=== PATIENT | male | born 1965 | race Caucasian/White ===

== ENCOUNTER 2023-06-23 06:59 | Outpatient (OUT) | payer OTHER, SELFPAY ==
--- NOTE | 2023-06-23 | CT_ITS ---
The [address] [address] Patient Name: SHAKILA LOPEZ MRN: [id number] date: 1965 Sex: M Assigned Patient Location: CT Current Patient Location: CT Accession/Order Number: [id number] Exam Date: 06/23/2023 07:45 Report Date: 06/23/2023 08:15 At the request of: MARY CORONADO Procedure: CT abdomen w con CT abdomen w con, 06/23/2023 7:45 AM EST INDICATION: Ventral hernia without obstruction or gangrene, K43.9 COMPARISON: There is no appropriate prior study for comparison. TECHNIQUE: Axial images of the abdomen were obtained after the administration of IV and oral contrasts. Multiplanar reformatted images were generated and reviewed as needed. Dose reduction techniques were achieved by using automated exposure control and/or adjustment of mA and/or kV according to patient size and/or use of iterative reconstruction technique. FINDINGS: Lungs: There is bilateral dependent atelectasis in the lung bases. No pleural effusion is noted. Abdominal wall: There is a defect within the anterior abdominal wall measuring approximately 1.4 cm in transverse diameter containing fat (under the BB). Liver and gallbladder: The liver and gallbladder are unremarkable. No enlargement of intra or extrahepatic biliary ducts. Genitourinary system: No hydronephrosis. No nephrolithiasis. Other solid abdominal organs: adrenal glands, pancreas, and spleen are unremarkable. Aorta: The infrarenal abdominal aorta is nonaneurysmal. Free fluid: There is no free fluid in the abdomen. Lymph node: No lymph node enlargement by size criteria is noted. Stomach and Bowel: No abnormality of the stomach is noted. No abnormality of visualized small or large bowel is noted. Bone: There is no suspicious osteolytic or osteoblastic lesion. Lower lumbar spine posterior fusion are partially visualized. CT/CT abdomen w con IMPRESSION: Small ventral hernia containing fat. Electronically authenticated by: JESÚS MORGAN Date: 06/23/2023 08:15
== END 2023-06-23 07:00 | disposition home or self-care (01) ==
LOC: CT 06:59
PROVIDERS: PCP Family Medicine; Visit Provider Family Medicine
DX: K43.9 Ventral hernia without obstruction or gangrene (principal)
CPT/HCPCS: 74160; Q9967

== ENCOUNTER 2023-07-06 10:57 | Outpatient (OUT) | payer OTHER, SELFPAY ==
--- OUTSIDE RECORDS SUMMARY | 2023-07-06 11:00 | XMS_ITS | CCD ---
Author Name Unknown Address [address] [place] [address] Organization [facility] Care Team Providers Care [employer] Athlete Name Role Phone OLIVIA ZAMAN Unavailable Unavailable MARY KLINE M Unavailable Unavailable OLIVIA ZAMAN Unavailable Unavailable BILL KLINELAS M Unavailable Unavailable HEMPHILL, HAMZAH P Unavailable Unavailable HEMPHILL, HAMZAH P Unavailable Unavailable HOY MARY M Unavailable Unavailable HEMPHILL, HAMZAH P Unavailable Unavailable Mary Kline MD Primary Care Provider [phone] MARY KLINE Primary Care Unavailable MARY KLINE Primary Care Unavailable MARY KLINE Referring Unavailable ELGAFY, CHEIKH K Admitting Unavailable ELGAFY, CHEIKH K Attending Unavailable ELGAFY, CHEIKH Attending Unavailable AMBROSIO LIANG Referring Unavailable ELGAFY, CHEIKH Referring Unavailable ELGAFY, CHEIKH Admitting Unavailable ELGAFY, CHEIKH Attending Unavailable IVONNE ., DR HERNANDEZ Admitting Unavailable IVONNE ., DR HERNANDEZ Attending Unavailable IVONNE .DR HERNANDEZ Primary Care Unavailable IVONNE .DR HERNANDEZ Consulting Unavailable LEYDIY .DR HERNANDEZ Admitting Unavailable LEYDIY .DR HERNANDEZ Attending Unavailable IVONNE .DR HERNANDEZ Primary Care Unavailable IVONNE .DR HERNANDEZ Consulting Unavailable OLIVIA BECKER Consulting Unavailable IVONNE .DR HERNANDEZ Admitting Unavailable LEYDIY .DR HERNANDEZ Attending Unavailable LEYDIY ., DR HERNANDEZ Primary Care Unavailable LEYDIY .DR HERNANDEZ Consulting Unavailable LEYDIY ., DR HERNANDEZ Admitting Unavailable IVONNE ., DR HERNANDEZ Attending Unavailable IVONNE ., DR HERNANDEZ Primary Care Unavailable IVONNE Almanzar, DR HERNANDEZ Consulting Unavailable Mary Kline Primary Care Physician [phone] Edna GOODWIN Attending Unavailable Edna GOODWIN Attending Unavailable Allergies Allergy Classification Reported Allergen(s) Allergy Type Date of Onset Reaction(s) Facility Opioid Agonists (1 source) Morphine Drug Allergy 02-23-2018 [facility] (6 sources) morphine; Translations: [MORPHINE] Drug Allergy 01-28-2018 [facility], Itching [facility] Repository Medications Current Medications Medication Drug Class(es) Dates Sig (Normalized) Sig (Original) 0.25 MG, 0.5 MG Dose 3 ML semaglutide 0.68 MG/ML Pen Injector [Ozempic] (1 source) Start: 12-16-2022 inject 0.5 mg by subcutaneous injection every week Ozempic 2 mg/3 mL (0.25 mg or 0.5 mg dose) subcutaneous solution 0.5 mg, SubCutaneous, qWeek, Refills(s) 0 Start Date: 12/16/22 Status: Ordered acetaminophen 325 mg / HYDROcodone bitartrate 5 mg oral tablet (1 source) Opioid Agonist Start: 02-08-2021 End: 02-11-2021 HYDROcodone-acetami nophen (NORCO) 5-325 MG per tablet Indications: Acute exacerbation of chronic low back pain Take 1 tablet by mouth every 6 hours as needed for Pain for up to 3 days. Intended supply: 3 days. Take lowest dose possible to manage pain 12 tablet 0 02/08/2021 02/11/2021 Active baclofen 10 mg oral tablet (1 source) gamma-Aminobutyric Acid-ergic Agonist Start: 02-08-2021 End: 02-12-2021 take 1 tablet by mouth three times daily as needed for muscle spasms baclofen (LIORESAL) 10 MG tablet Take 1 tablet by mouth 3 times daily as needed (muscle spasm) 12 tablet 0 02/08/2021 02/12/2021 Active diclofenac sodium 50 mg delayed release oral tablet (1 source) Nonsteroidal Anti-inflammatory Drug Start: 02-23-2018 End: 02-08-2021 take 1 tablet by mouth three times daily at mealtime diclofenac (VOLTAREN) 50 MG EC tablet Indications: Lumbar radiculopathy , Lumbar spondylosis , Left knee pain, unspecified chronicity , Lumbar disc herniation , Lumbar degenerative disc disease Take 1 tablet by mouth 3 times daily (with meals) 90 tablet 3 02/23/2018 02/08/2021 Discontinued (LIST CLEANUP) Ozempic 2 mg/3 mL (0.25 mg or 0.5 mg dose) subcutaneous solution (1 source) Start: 12-16-2022 inject 0.5 mg by subcutaneous injection every week Ozempic 2 mg/3 mL (0.25 mg or 0.5 mg dose) subcutaneous solution 0.5 mg, SubCutaneous, qWeek, Refills(s) 0 Start Date: 12/16/22 Status: Ordered Completed/Discontinued Medications Medication Drug Class(es) Dates Sig (Normalized) Sig (Original) methylPREDNISolone 125 mg injection (1 source) Corticosteroid Start: 1 End: 1 methylPREDNISolone sodium (SOLU-MEDROL) injection 60 mg Problems Active Problems Problem Classification Problem Date Documented Date Episodic/Chronic Anxiety disorders (4 sources) Anxiety; Translations: [Claustrophobia] 08-08-2021 Chronic Calculus of urinary tract (2 sources) History of calculus of kidney 08-08-2021 Episodic Diabetes mellitus without complication (1 source) Other abnormal glucose; Translations: [OTHER ABNORMAL GLUCOSE] Onset: 11-07-2022 Episodic Disorders of lipid metabolism (1 source) Hyperlipidemia, unspecified; Translations: [HYPERLIPIDEMIA UNSPECIFIED] Onset: 11-07-2022 Chronic Gout and other crystal arthropathies (2 sources) Gout 08-08-2021 Chronic Mood disorders (4 sources) Depressive disorder; Translations: [Severe major depression] 09-18-2016 Chronic Nutritional deficiencies (1 source) Vitamin D deficiency, unspecified; Translations: [VITAMIN D DEFICIENCY UNSPECIFIED] Onset: 11-07-2022 Chronic Osteoarthritis (4 sources) Unilateral primary osteoarthritis, left knee; Translations: [UNI PRIM OSTEOARTHRITIS LT KNEE] Onset: 07-30-2022 Chronic Other and unspecified benign neoplasm (2 sources) Lipoma of back 08-08-2021 Episodic Other circulatory disease (4 sources) Elevated blood-pressure reading, without diagnosis of hypertension; Translations: [ELEVATED BP READING W/O DX HTN] Onset: 11-04-2022 Episodic Other circulatory disease (2 sources) Elevated blood-pressure reading without diagnosis of hypertension 08-08-2021 Episodic Other connective tissue disease (2 sources) Presence of left artificial knee joint; Translations: [Presence of left artificial knee joint] Onset: 02-11-2017 Chronic Other connective tissue disease (2 sources) Foot pain 09-18-2016 Episodic Other lower respiratory disease (1 source) Snoring; Translations: [SNORING] Onset: 08-14-2022 Episodic Other lower respiratory disease (5 sources) Dyspnea, unspecified; Translations: [DYSPNEA UNSPECIFIED] Onset: 08-05-2022 Episodic Other male genital disorders (1 source) Disorder of prostate, unspecified; Translations: [DISORDER OF PROSTATE UNSPECIFIED] Onset: 11-07-2022 Episodic Other nervous system disorders (2 sources) Neuropathy 08-08-2021 Chronic Other non-traumatic joint disorders (2 sources) Pain in left knee; Translations: [Pain in left knee] Onset: 02-11-2017 Episodic Other non-traumatic joint disorders (2 sources) Knee pain 09-18-2016 Episodic Comment on above: s/p left total knee arthroplast Other nutritional; endocrine; and metabolic disorders (2 sources) Body mass index 40+ - severely obese 08-13-2021 Chronic Other nutritional; endocrine; and metabolic disorders (2 sources) Morbid obesity 12-16-2022 Chronic Other nutritional; endocrine; and metabolic disorders (5 sources) Overweight; Translations: [OVERWEIGHT] Onset: 08-03-2022 Episodic Other skin disorders (2 sources) Hypertrophic condition of skin; Translations: [Other hypertrophic disorders of the skin] Onset: 12-16-2022 Episodic Other skin disorders (2 sources) Multiple skin tags 12-16-2022 Episodic Other upper respiratory disease (2 sources) Deviated nasal septum 08-08-2021 Episodic Other upper respiratory disease (2 sources) Hypertrophy of nasal turbinates 08-08-2021 Episodic Residual codes; unclassified (1 source) Obstructive sleep apnea (adult) (pediatric); Translations: [OBSTRUCTIVE SLEEP APNEA] Onset: 08-14-2022 Chronic Residual codes; unclassified (2 sources) Obstructive sleep apnea syndrome 08-08-2021 Chronic Residual codes; unclassified (2 sources) Pain; Translations: [Pain] Onset: 03-27-2022 Episodic Spondylosis; intervertebral disc disorders; other back problems (4 sources) Cervical spondylosis; Translations: [Prolapsed lumbar intervertebral disc] 08-08-2021 Chronic Spondylosis; intervertebral disc disorders; other back problems (5 sources) Chronic low back pain; Translations: [Low back pain] Onset: 03-13-2022 Episodic Past or Other Problems Problem Classification Problem Date Documented Da te Episodic/Chronic Other lower respiratory disease (1 source) Chronic cough; Translations: [CHRONIC COUGH] Onset: 08-02-2022 Episodic Results Test Name Value Interpretation Reference Range Facility Physician Referralon 023 Physician Referral [id number] Normal [facility] RAD - CT Reporton 06-25-2023 RAD - CT Report [id number] Normal [facility] Ambulatory Visit Summaryon 0 12-30-2022 Ambulatory Visit Summary RIOS BARTLETT :1965 Visit Date:12/30/2022 Ambulatory Visit Instructions Your Diagnosis Skin tags, multiple acquired Your Care Team Attending Physician - BUDDY TRAN, Edna Maher Primary Care Physician - Ivonne TRAN, Mary This Is Your Medications List Contact prescribing physician if questions or concerns semaglutide (Ozempic 2 mg/3 mL (0.25 mg or 0.5 mg dose) subcutaneous solution) Procedures Performed Exploration (08/27/2021), Uvulopalatopharyngoplasty (2019), L knee synovectomy, poly exchange, quad plasty complicated by obesity (10/06/2016), ACDF 5-7, Gastric sleeve, History of revision of left total knee arthroplasty, LA - Local anesthetic nerve block in lower limb, left knee arthroscopy, left total knee arthroplasty, Lumbar spinal fusion, Nasal septoplasty, Testicular torsion, Tonsillectomy and adenoidectomy. Medications What How Much When Instructions Unchanged semaglutide (Ozempic 2 mg/ 3 mL (0.25 mg or 0.5 mg dose) subcutaneous solution) 0.5 Milligram Subcutaneous Every week Contact prescribing physician if questions or concerns Allergies morphine (Itching) Problems Ongoing - Any problem that you are currently receiving treatment for. Anxiety BMI 40.0-44.9, adult Brachial neuritis Cervical spondylosis Claustrophobia Deviated nasal septum Elevated blood pressure reading without diagnosis of hypertension Gout History of nephrolithiasis Hypertrophy of nasal turbinates Lipoma of back Lumbar herniated disc Morbid obesity Neuropathy PATTI (obstructive sleep apnea) Severe major depressive disorder Skin tags, multiple acquired [facility] General Surgery Office/Clini c Noteon 12-30-2022 General Surgery Office/Clinic Note Chief Complaint removal of skin tags HPI Staff Presents for removal of multiple skin tags. History of Present Illness patient here for excision of multiple irritated skin tags bilateral axillae, neck and near right eye; no change since recent evaluation. Review of Systems ROS - Provider Constitutional: no fever, no sweats, no weight loss. Eyes: no glasses, no blurred vision, no visual loss. ENMT: no dentures, no hoarseness, no swallowing difficulties, no hearing loss, no ear infection(s), no nose bleeds. Cardiovascular: normal blood pressure, no chest pain, regular heartbeat, no heart murmur. Respiratory: no shortness of breath, no cough, no asthma, no wheezing. Gastrointestinal: no nausea, no vomiting, no diarrhea, no constipation, no blood in stool, no change in bowel habits, no abdominal pain, no hepatitis. Genitourinary: no kidney stones, no urine infection, no dysuria. Musculoskeletal: no pain, no weakness. Skin: no changing moles, no rash, no skin lumps. Neurologic: no seizures, no epilepsy, no headache. Psychiatric: no emotional or psychiatric problem. Heme/Lymph: no bleeding problems, no anemia, no blood clots, no transfusions. Allergy/Immunologic: no swollen lymph nodes/glands, no IV drug abuse. Other: Additional ROS info: Except as noted in the above Review of Systems and in the History of Present Illness, all other systems have been reviewed and are negative or noncontributory. Physical Exam skin: multiple skin tags, bilateral axillae, neck, near right eye. Procedure patient brought to the procedure room, placed in supine position, area prepped and draped in sterile fashion; anesthetized with 1 % lidocaine; lesions excised with cautery, approximately 25; tolerated well; ebl < 1 ml. Assessment/Plan 1. Skin tags, multiple acquired (L91.8: Other hypertrophic disorders of the skin) excised under local anesthesia with cautery, tolerated well, ebl < 1 ml; keep areas clean and dry, call with problems/questions; ibuprofen as needed for pain. Follow-up No qualifying data available Problem List/Past Medical History Ongoing Anxiety BMI 40.0-44.9, adult Brachial neuritis Cervical spondylosis Claustrophobia Deviated nasal septum Elevated blood pressure reading without diagnosis of hypertension Gout History of nephrolithiasis Hypertrophy of nasal turbinates Lipoma of back Lumbar herniated disc Morbid obesity Neuropathy PATTI (obstructive sleep apnea) Severe major depressive disorder Skin tags, multiple acquired Historical No qualifying data Procedure/Surgical History Exploration (08/27/2021), Uvulopalatopharyngoplasty (2019), L knee synovectomy, poly exchange, quad plasty complicated by obesity (10/06/2016), ACDF 5-7, Gastric sleeve, History of revision of left total knee arthroplasty, LA - Local anesthetic nerve block in lower limb, left knee arthroscopy, left total knee arthroplasty, Lumbar spinal fusion, Nasal septoplasty, Testicular torsion, Tonsillectomy and adenoidectomy. Medications Ozempic 2 mg/3 mL (0.25 mg or 0.5 mg dose) subcutaneous solution, 0.5 mg, SubCutaneous, qWeek Allergies morphine (Itching) Social History Alcohol - Denies Alcohol Use, 09/18/2016 Substance Abuse - Denies Substance Abuse, 09/18/2016 Tobacco - Denies Tobacco Use, 09/18/2016 Never (less than 100 in lifetime) Tobacco Use:. Never Smokeless Tobacco Use:., 12/16/2022 Family History Cardiac arrest: Father. Hypertension: Brother. Primary malignant neoplasm of lung: Mother. Stroke: Mother. Immunizations Vaccine Date Status Comments influenza virus vaccine, inactivated - Not Given Patient Refuses Normal [facility] Comment on above: Result Comment: Elec tronically Signed By: BUDDY TRAN, Edna Maher\.br\Date and Time Signed: 12/30/22 15:11 EDT Pre-Certification Formon Pre-Certification Form [id number]:127 Normal [facility] Ambulatory Visit Summaryon 0 12-16-2022 Ambulatory Visit Summary RIOS BARTLETT :1965 Visit Date:12/16/2022 Ambulatory Visit Instructions Your Care Team Attending Physician - BUDDY TRAN, Edna Maher Primary Care Physician - Mary Kline MD This Is Your Medications List semaglutide (Ozempic 2 mg/3 mL (0.25 mg or 0.5 mg dose) subcutaneous solution) Procedures Performed Exploration (08/27/2021), Uvulopalatopharyngoplasty (2019), L knee synovectomy, poly exchange, quad plasty complicated by obesity (10/06/2016), ACDF 5-7, Gastric sleeve, History of revision of left total knee arthroplasty, LA - Local anesthetic nerve block in lower limb, left knee arthroscopy, left total knee arthroplasty, Lumbar spinal fusion, Nasal septoplasty, Testicular torsion, Tonsillectomy and adenoidectomy. Discharge Vitals Heart Rate (Peripheral) 70 Respiratory Rate 18 Blood Pressure 118/66 Height 175.3 cm Height 69 in Weight 136.6 kg Weight 300.52 lb BMI 44.45 What to do next Scheduled Follow-Up Appointments Wednesday 2:40 PM EDT With: BUDDY TRAN, Edna Maher Where: General Surgery Nill/Said [employer] Normal [facility] CBC AUTO DIFFon 11-04-2022 BASO # 0.0 103/ul Normal 0.0-0.1 [facility] Comment on above: Performed By: #### T SH, T4, FT3, CMP, LIPID #### [facility] [address] [place] [address] Dr. Ayush Rice Basophils/100 WBC (Bld) 0.3 % Normal 0.2-2.0 [facility] Comment on above: Performed By: #### T SH, T4, FT3, CMP, LIPID #### [facility] [address] [address] [address] Ayush Rice EO # 0.2 103/ul Normal 0.0-0.7 [facility] Comment on above: Performed By: #### T SH, T4, FT3, CMP, LIPID #### [facility] [address] [address] [address] Ayush Rice Eosinophils/100 WBC (Bld) 1.5 % Normal 0.9-7.0 [facility] Comment on above: Performed By: #### T SH, T4, FT3, CMP, LIPID #### [facility] [address] [place] [address] Dr. Ayush Rice Erythrocyte distribution width (RBC) [Ratio] 14.2 % Normal 11.0-15.0 [facility] Comment on above: Performed By: #### T SH, T4, FT3, CMP, LIPID #### [facility] [address] [place] [address] Dr. Ayush Rice Hematocrit (Bld) [Volume fraction] 49.3 % Normal 42.0-54.0 [facility] Comment on above: Performed By: #### T SH, T4, FT3, CMP, LIPID #### [facility] [address] [place] [address] Dr. Ayush Rice Hemoglobin (Bld) [Mass/Vol] 16.2 g/dL Normal 14.0-18.0 [facility] Comment on above: Performed By: #### T SH, T4, FT3, CMP, LIPID #### [facility] [address] [place] [address] Dr. Ayush Rice IG # 0.03 10e3/ul Normal 0.00-0.03 [facility] Comment on above: Performed By: #### T SH, T4, FT3, CMP, LIPID #### [facility] [address] [place] [address] Dr. Ayush Rice IG % 0.3 % Normal 0.0-0.5 [facility] Comment on above: Performed By: #### T SH, T4, FT3, CMP, LIPID #### [facility] [address] [place] [address] Dr. Ayush Rice LYMPH # 2.6 103/ul Normal 1.2-3.8 [facility] Comment on above: Performed By: #### T SH, T4, FT3, CMP, LIPID #### [facility] [address] [place] [address] Dr. Ayush Rice Lymphocytes/100 WBC (Bld) 24.9 % Normal 20.5-60.0 [facility] Comment on above: Performed By: #### T SH, T4, FT3, CMP, LIPID #### [facility] [address] [place] [address] Dr. Ayush Rice MANUAL DIFF REQ NO Normal [facility] Comment on above: Performed By: #### T SH, T4, FT3, CMP, LIPID #### [facility] [address] [place] [address] Dr. Ayush Rice MCH (RBC) [Entitic mass] 30.1 pg Normal 25.9-34.0 [facility] Comment on above: Performed By: #### T SH, T4, FT3, CMP, LIPID #### [facility] [address] [place] [address] Dr. Ayush Rice MCHC (RBC) [Mass/Vol] 32.9 g/dL Normal 29.9-35.2 [facility] Comment on above: Performed By: #### T SH, T4, FT3, CMP, LIPID #### [facility] [address] [place] [address] Dr. Ayush Rice MCV (RBC) [Entitic vol] 91.5 fL Normal 80.0-94.0 [facility] Comment on above: Performed By: #### T SH, T4, FT3, CMP, LIPID #### [facility] [address] [place] [address] Dr. Ayush Rice MONO # 0.8 103/ul Normal 0.3-0.8 [facility] Comment on above: Performed By: #### T SH, T4, FT3, CMP, LIPID #### [facility] [address] [place] [address] Dr. Ayush Rice Monocytes/100 WBC (Bld) 7.4 % Normal 1.7-12.0 [facility] Comment on above: Performed By: #### T SH, T4, FT3, CMP, LIPID #### [facility] [address] [place] [address] Dr. Ayush Rice NEUT # 7.0 103/ul Critically high 1.4-6.5 [facility] Comment on above: Performed By: #### T SH, T4, FT3, CMP, LIPID #### [facility] [address] [place] [address] Dr. Ayush Rice Neutrophils/100 WBC (Bld) 65.6 % Normal 43.0-75.0 [facility] Comment on above: Performed By: #### T SH, T4, FT3, CMP, LIPID #### [facility] [address] [place] [address] Dr. Ayush Rice Platelet mean volume (Bld) [Entitic vol] 8.5 fL Critically low 9.5-13.5 [facility] Comment on above: Performed By: #### T SH, T4, FT3, CMP, LIPID #### [facility] [address] [place] [address] Dr. Ayush Rice PLT 232 103/ul Normal 150-450 [facility] Comment on above: Performed By: #### T SH, T4, FT3, CMP, LIPID #### [facility] [address] [place] [address] Dr. Ayush Rice RBC 5.39 106/ul Normal 4.70-6.10 [facility] Comment on above: Performed By: #### T SH, T4, FT3, CMP, LIPID #### [facility] [address] [place] [address] Dr. Ayush Rice WBC 10.6 103/ul Normal 4.0-11.0 [facility] Comment on above: Performed By: #### T SH, T4, FT3, CMP, LIPID #### [facility] [address] [place] [address] Dr. Ayush Rice FREE T3on 11-04-2022 FREE T3 2.93 pg/mlL Normal 2.18-3.98 [facility] Comment on above: Performed By: #### T SH, T4, FT3, CMP, LIPID #### [facility] [address] [place] [address] Dr. Auysh Rice GLYCOHEMOGLOBIN A1Con 2022 ADA RECOMMENDATION SEE BELOW Normal [facility] Comment on above: Result Comment: ADA RECOMMENDED LIMIT 4.0 - 6.0 ADA THERAPEUTIC TARGET < 7.0 ACTION SUGGESTED > 7.0 Performed By: #### A 1C #### [facility] [address] [place] [address] Dr. Ayush Rice Glucose [Mass/Vol] 126 mg/dL Normal [facility] Comment on above: Performed By: #### A 1C #### [facility] [address] [address] [address] Ayush Rice HbA1c (Bld) [Mass fraction] 6.0 % Normal 4.5-6.2 [facility] Comment on above: Performed By: #### A 1C #### [facility] [address] [address] [address] Ayush Rice LIPID PROFILEon 11-04-2022 CHOL-HDL RATIO NORM SEE BELOW Normal [facility] Comment on above: Result Comment: 3.3 - 4.4 LOW RISK 4.4 - 7.1 AVERAGE RISK 7.1 - 11.0 MODERATE RISK >11.0 HIGH RISK Performed By: #### T SH, T4, FT3, CMP, LIPID #### [facility] [address] [place] [address] Dr. Ayush Rice Cholesterol [Mass/Vol] 190 mg/dL Normal <=200 [facility] Comment on above: Performed By: #### T SH, T4, FT3, CMP, LIPID #### [facility] [address] [address] [address] Ayush Rice Cholesterol in HDL [Mass/Vol] 39 mg/dL Critically low 40-60 [facility] Comment on above: Performed By: #### T SH, T4, FT3, CMP, LIPID #### [facility] [address] [address] [address] Ayush Rice Cholesterol in LDL [Mass/Vol] 122.0 mg/dL Normal [facility] Comment on above: Performed By: #### T SH, T4, FT3, CMP, LIPID #### [facility] [address] [address] [address] Ayush Rice Cholesterol.total/ Cholesterol in HDL [Mass ratio] 4.9 {ratio} Normal [facility] Comment on above: Performed By: #### T SH, T4, FT3, CMP, LIPID #### [facility] [address] [address] [address] Ayush Rice HDL NORMAL > or = 60 mg/dl - LO W CARDIOVASCULAR RISK <40 mg/dl - HIGH CARDIOVASCULAR RISK Normal [facility] Comment on above: Performed By: #### T SH, T4, FT3, CMP, LIPID #### [facility] [address] [address] [address] Ayush Rice LDL CALC NORMAL SEE BELOW Normal [facility] Comment on above: Result Comment: <100 mg/dl OPTIMAL 100 - 129 mg/dl NEAR OR ABOVE OPTIMAL 130 - 159 mg/dl BORDERLINE HIGH 160 - 189 mg/dl HIGH >190 mg/dl VERY HIGH Performed By: #### T SH, T4, FT3, CMP, LIPID #### [facility] [address] [address] [address] Ayush Rice Triglyceride [Mass/Vol] 145 mg/dL Normal <=150 [facility] Comment on above: Performed By: #### T SH, T4, FT3, CMP, LIPID #### [facility] [address] [address] [address] Ayush Rice VLDL CALC 29.0 mg/dL Normal [facility] Comment on above: Performed By: #### T SH, T4, FT3, CMP, LIPID #### [facility] [address] [address] [address] Ayush Rice PROF 14(COMP METB)on 023 Albumin [Mass/Vol] 3.8 g/dL Normal 3.4-5.0 [facility] Comment on above: Performed By: #### T SH, T4, FT3, CMP, LIPID #### [facility] [address] [address] [address] Ayush Rice Albumin/Globulin [Mass ratio] 1.1 {ratio} Normal [facility] Comment on above: Performed By: #### T SH, T4, FT3, CMP, LIPID #### [facility] [address] [address] [address] Ayush Rice ALP [Catalytic activity/Vol] 103 U/L Normal 46-116 [facility] Comment on above: Performed By: #### T SH, T4, FT3, CMP, LIPID #### [facility] [address] [place] [address] Dr. Ayush Rice ALT [Catalytic activity/Vol] 40 U/L Normal 16-63 [facility] Comment on above: Performed By: #### T SH, T4, FT3, CMP, LIPID #### [facility] [address] [place] [address] Dr. Ayush Rice Anion gap [Moles/Vol] 12.4 mmol/L Normal [facility] Comment on above: Performed By: #### T SH, T4, FT3, CMP, LIPID #### [facility] [address] [place] [address] Dr. Ayush Rice AST [Catalytic activity/Vol] 28 U/L Normal 15-37 [facility] Comment on above: Performed By: #### T SH, T4, FT3, CMP, LIPID #### [facility] [address] [place] [address] Dr. Ayush Rice Bilirubin [Mass/Vol] 0.9 mg/dL Normal 0.2-1.0 [facility] Comment on above: Performed By: #### T SH, T4, FT3, CMP, LIPID #### [facility] [address] [place] [address] Dr. Ayush Rice Calcium [Mass/Vol] 9.1 mg/dL Normal 8.5-10.1 [facility] Comment on above: Performed By: #### T SH, T4, FT3, CMP, LIPID #### [facility] [address] [place] [address] Dr. Ayush Rice Chloride [Moles/Vol] 107 mmol/L Normal 98-107 [facility] Comment on above: Performed By: #### T SH, T4, FT3, CMP, LIPID #### [facility] [address] [place] [address] Dr. Ayush Rice CO2 [Moles/Vol] 27.9 mmol/L Normal 21.0-32.0 [facility] Comment on above: Performed By: #### T SH, T4, FT3, CMP, LIPID #### [facility] [address] [place] [address] Dr. Ayush Rice Creatinine [Mass/Vol] 1.18 mg/dL Normal 0.70-1.30 [facility] Comment on above: Performed By: #### T SH, T4, FT3, CMP, LIPID #### [facility] [address] [address] [address] Ayush Rice EGFR-AF BARBADIAN >60 Normal >=60 [facility] Comment on above: Performed By: #### T SH, T4, FT3, CMP, LIPID #### [facility] [address] [address] [address] Ayush Rice EGFR-NON AF BARBADIAN >60 Normal >=60 [facility] Comment on above: Performed By: #### T SH, T4, FT3, CMP, LIPID #### [facility] [address] [place] [address] Dr. Ayush Rice Globulin (S) [Mass/Vol] 3.4 g/dL Normal [facility] Comment on above: Performed By: #### T SH, T4, FT3, CMP, LIPID #### [facility] [address] [place] [address] Dr. Ayush Rice Glucose [Mass/Vol] 106 mg/dL Normal 74-106 [facility] Comment on above: Performed By: #### T SH, T4, FT3, CMP, LIPID #### [facility] [address] [place] [address] Dr. Ayush Rice Potassium [Moles/Vol] 4.3 mmol/L Normal 3.5-5.1 [facility] Comment on above: Performed By: #### T SH, T4, FT3, CMP, LIPID #### [facility] [address] [place] [address] Dr. Ayush Rice Protein [Mass/Vol] 7.2 g/dL Normal 6.4-8.2 [facility] Comment on above: Performed By: #### T SH, T4, FT3, CMP, LIPID #### [facility] [address] [place] [address] Dr. Ayush Rice Sodium [Moles/Vol] 143 mmol/L Normal 136-145 [facility] Comment on above: Performed By: #### T SH, T4, FT3, CMP, LIPID #### [facility] [address] [place] [address] Dr. Ayush Rice Urea nitrogen [Mass/Vol] 15.0 mg/dL Normal 7.0-18.0 [facility] Comment on above: Performed By: #### T SH, T4, FT3, CMP, LIPID #### [facility] [address] [place] [address] Dr. Ayush Rice Urea nitrogen/Creatinin e [Mass ratio] 12.7 mg/mg Normal [facility] Comment on above: Performed By: #### T SH, T4, FT3, CMP, LIPID #### [facility] [address] [place] [address] Dr. Ayush Rice T4on 11-04-2022 T4 [Mass/Vol] 7.30 ug/dL Normal 4.50-12.10 [facility] Comment on above: Performed By: #### T SH, T4, FT3, CMP, LIPID #### [facility] [address] [place] [address] Dr. Ayush Rice TSHon 11-04-2022 TSH 1.301 uIU/mL Normal 0.358-3.740 [facility] Comment on above: Performed By: #### T SH, T4, FT3, CMP, LIPID #### [facility] [address] [place] [address] Dr. Ayush Rice VITAMIN D 25 OHon 11-04-2022 VIT D 25-OH 20.0 ng/mL Normal [facility] Comment on above: Performed By: #### T SH, T4, FT3, CMP, LIPID #### [facility] [address] [place] [address] Dr. Ayush Rice VIT D RANGES SEE BELOW [facility] Comment on above: Result Comment: <20 ng/mL Vit D deficient 20 - <30 ng/mL Vit D insufficient 30 - 100 ng/mL Vit D sufficient >100 ng/mL Potential Toxicity Performed By: #### T SH, T4, FT3, CMP, LIPID #### [facility] [address] [place], [place] [address] Dr. Ayush Rice ECHOCARDIO M/2D COMPLETEon 0 08-03-2022 ECHOCARDIO M/2D COMPLETE Patient: RIOS BARTLETT Exam Date: 08/03/2022 : 1965 Gender:M Ordering : DR MARY KLINE . Admission #: [id number] Family : Order #: [id number] CLICK HERE TO VIEW EXAM ECHOCARDIOGRAM REPORT PROCEDURE: CARDIO PULMONARY ECHOCARDIO M/2D COMP INDICATIONS: Dyspnea, sleep apnea, over weight COMPARISON: None. DESCRIPTION: COMPLETE ECHOCARDIOGRAM Real-time transthoracic echocardiography with 2D, M-mode, spectral and color flow Doppler performed. QUALITY: Technical quality was good. 69 307# BP 118/72 LEFT VENTRICLE: Normal chamber size. Mild concentric left ventricular hypertrophy. Normal systolic function. LV EF: Normal left ventricular ejection fraction, (>55%). DIASTOLIC: Diastolic function is indeterminate. ATRIAL SEPTUM: LEFT ATRIUM: Mild dilatation. RIGHT ATRIUM: Mild dilatation. RIGHT VENTRICLE: Mild dilatation. Normal right ventricular systolic function. TRICUSPID VALVE: Normal mobility and thickness. No stenosis with mild regurgitation. Doppler studies reveal severely (>60) elevated right sided pressures. RVSP 81 mmHg assuming a right atrial pressure of 8 mmHg. MITRAL VALVE: Normal mobility and thickness. No evidence of mitral valve stenosis. There is no mitral annular calcification. Trivial mitral regurgitation. AORTIC VALVE: Normal trileaflet appearance. No visible sclerosis. Normal leaflet mobility. No evidence of aortic valve stenosis. No aortic regurgitation. AORTIC ROOT: Normal diameter and appearance. PULMONIC VALVE: Normal thickness and mobility. No stenosis. No regurgitation. PERICARDIUM: No evidence of pericardial effusion. IVC: Not well visualized. PLEURA: CONCLUSION: 1. Mild concentric left ventricular hypertrophy. Normal left ventricular systolic function. LVEF is 55 to 60%. 2. Mild right ventricular dilatation with normal systolic function. 3. No significant valvular dysfunction. 4. Severely elevated right-sided pressures. 5. No pericardial effusion. Adult Echocardiography Procedure Report Left Ventricle LVEDD (3.7 - 5.6 cm): 4.63 cm LVESD (2.2 - 4.0 cm): 3.04 cm LVIVS thickness (0.6 - 1.2 cm): 1.20 cm LVPW thickness (0.5 - 1.0 cm): 1.34 cm e': 0.13 m/s E - e': 2.99 LVOT Max Gradient: 3.03 mm[Hg] Peak Velocity (LVOT): 0.87 m/s LVOT Diameter 3.02 cm Left Ventricular Ejection Fraction: 63.33 %, 63.33 % Left Atrium LA Volume Index (2D A2C): 112.80 ml, 112.80 ml Left Atrium Systolic Dimension: 4.41 cm Mitral Valve MV E to A Ratio: 0.73 Mitral Valve A-Wave Peak Velocity: 0.53 m/s Mitral Valve E-Wave Peak Velocity: 0.38 m/s Right Ventricle Aorta AO Root Diam: 4.25 cm Aortic Valve AoV Area (Peak Larry): 4.70 cm2, 4.70 cm2 Peak Velocity(Antegrade Flow): 1.33 m/s Peak Gradient(Antegrade Flow): 7.05 mm[Hg] Tricuspid Valve Peak Velocity (Regurgitant Flow): 4.28 m/s Peak Velocity: 0.40 m/s Pulmonic Valve Peak Velocity: 0.82 m/s Peak Gradient: 2.67 mm[Hg] Right Atrium Right Atrium Systolic Pressure: 106.97 ml, 106.97 ml Dictated by: Vinayak Ma M.D. on 08/04/2022 at 19:10 Approved by: Vinayak Ma M.D. on 08/04/2022 at 19:15 Normal [facility] NM STRESS/REST MULTIon 08-03 NM STRESS/REST MULTI Patient: RIOS BARTLETT Exam Date: 08/03/2022 : 1965 Gender:M Ordering : DR MARY KLINE . Admission #: [id number] Family : Order #: [id number] CLICK HERE TO VIEW EXAM RADIOLOGY REPORT PROCEDURE: RADIONUCLIDE IMAGING STRESS/REST MULTI COMPARISON: None. INDICATIONS: Dyspnea, over weight TECHNIQUE: Exam Description: Stress/Rest two day protocol gated SPECT Rest Imagin.8 mCi Tc-99m Cardiolite IV on 08/03/2022 Stress Imaging 26.6 mCi Tc-99m Cardiolite IV on 08/10/2022 Exercise Protocol: 0.4 mg Lexiscan given IV Heart Rate (bpm): Rest: 81 Max: 106 PMHR: 64 Blood Pressure: Rest: 120/80 Max: 148/74 Symptoms: Rest and peak stress ECG findings were normal and the exercise portion of the study was normal per attending physician Dr. Andre . For more details please see separate cardiac stress test report. FINDINGS: QUALITY OF STUDY: Good. PERFUSION DEFECT: LOCATION: Basal inferior. Basal inferolateral. SIZE: Small (1-2 segments). SEVERITY: Mild. TYPE: Persistent. WALL MOTION: Normal. LV SIZE: Normal. 103 mL. TID / TCD: Yes; 1.2 LVEF: Normal. Calculated EF 63%. SUMMARY: Myocardial perfusion imaging study has ABNORMAL findings. CONCLUSION: 1. Small fixed defect in the inferior wall. No reversible ischemia 2. Borderline transient ischemic dilation with a ratio of 1.2 3. Normal exercise test Dictated by: Olivia Marie MD on 08/10/2022 at 13:48 Approved by: Olivia Marie MD on 08/10/2022 at 13:50 Normal [facility] XR CHEST 2 Von 07-30-2022 XR CHEST 2 V EXAM: Chest x-ray HISTORY: . Chronic cough . COMPARISON: None. TECHNIQUE: Frontal and lateral chest FINDINGS: Heart and vascularity are unremarkable. Lungs are free of focal infiltrates. There is a slight scoliotic deformity of the spine with convexity to the right. Spondylosis of the spine is noted. IMPRESSION: No acute heart or lung disease identified. Electronically authenticated by: OLIVIA BECKER Date: 2022-07-30 17:15 Normal [facility] XR KNEE LT 4V or >on 023 XR KNEE LT 4V or > EXAM: XR KNEE LT 4V or > HISTORY: . Osteoarthritis . COMPARISON: None. TECHNIQUE: 4 views FINDINGS: Left knee arthroplasty is noted. No fracture or loosening is noted. Prosthesis appears in good position and alignment. Surrounding soft tissues are unremarkable. IMPRESSION: Left knee arthroplasty with no acute abnormality noted. Electronically authenticated by: OLIVIA BECKER Date: 2022-07-30 17:16 Normal [facility] Office Visiton 03-27-2022 Follow-up visit [id number] Alexis Bartlett 1965 M Date Provider Department Center 03/27/2022 Lora-CHEIKH WALKER MP ORTHO MPORTHO No family history on file Level of Service:43817 [place] POSTOP FOLLOW UP VISIT RELATED TO ORIGINAL PX Reason for Visit and Comments: Pain [136] Normal [facility] 36on 03-18-2022 36 Pt was informed and verbalized understanding. Normal [facility] 36on 03-17-2022 36 Pt is complaining he is having a hard time with pain control. Most of the reported pain is in both of his legs and described as burning pain. Pt would like to know if there is anything else that can be prescribed along with the oxycodone he is currently taking? Please advise. Normal [facility] BASIC METABOLIC PANELon 02-26 Anion gap [Moles/Vol] 5 mmol/L Normal <=30 [facility] Comment on above: Performed By: #### L [id number] #### [facility] ([facility]) [address] [facility] [place] [address] Calcium [Mass/Vol] 8.5 mg/dL Low 8.6-10.3 [facility] Comment on above: Performed By: #### L [id number] #### [facility] ([facility]) [address] [place] [address] Chloride [Moles/Vol] 102 mmol/L Normal 98-107 [facility] Comment on above: Performed By: #### L [id number] #### [facility] ([facility]) [address] [facility] [place] [address] CO2 [Moles/Vol] 31 mmol/L Normal 21-31 [facility] Comment on above: Performed By: #### L [id number] #### [facility] ([facility]) [address] [place] [address] Creatinine [Mass/Vol] 0.96 mg/dL Normal 0.70-1.30 [facility] Comment on above: Performed By: #### L [id number] #### [facility] ([facility] [address] [facility] [place] [address] GLOMERULAR FILTRATION RATE ML/MIN/1.73 SQ M.PREDICTED 88.6 mL/min/1.73m*2 Normal >60.0 [facility] Comment on above: Result Comment: The [facility]???s estimated glomerular filtration rate (eGFR) will no longer include consideration of race in its calculation. The National Kidney Foundation???s eGFR Task Force developed new recommendations for the estimation of the glomerular filtration rate in the [place] They recommend immediate implementation of the new equation refit without the race variable in all laboratories because the calculation does not include race. In addition to not including race in the calculation and reporting, it included diversity in its development, and has acceptable performance characteristics and potential consequences that do not disproportionately affect any one group of individuals. Performed By: #### L [id number] #### [facility] ([facility]) [address] [place] [address] Glucose [Mass/Vol] 112 mg/dL High 70-100 [facility] Comment on above: Performed By: #### L [id number] #### [facility] ([facility]) [address] [place] [address] Potassium [Moles/Vol] 4.7 mmol/L Normal 3.5-5.1 [facility] Comment on above: Performed By: #### L [id number] #### [facility] ([facility]) [address] [place] [address] Sodium [Moles/Vol] 138 mmol/L Normal 136-145 [facility] Comment on above: Performed By: #### L [id number] #### [facility] ([facility]) [address] [place] [address] Urea nitrogen [Mass/Vol] 16 mg/dL Normal 7-25 [facility] Comment on above: Performed By: #### L [id number] #### [facility] ([facility]) [address] [place] [address] UREA NITROGEN/CREATININ E (MASS RATIO) IN SER/PLAS 16.67 Normal [facility] Comment on above: Performed By: #### L [id number] #### [facility] ([facility]) [address] [place] [address] CBCon 03-14-2022 Erythrocyte distribution width (RBC) [Ratio] 13.8 % Normal 11.5-15.0 [facility] Comment on above: Performed By: #### L [id number] #### [facility] ([facility] [address] [place] [address] ERYTHROCYTE MEAN CORPUSCULAR HEMOGLOBIN CONCENTRATION (G/DL) BY AUTOMATED 33.2 g/dL Normal 32.0-35.0 [facility] Comment on above: Performed By: #### L [id number] #### [facility] ([facility]) [address] [place] [address] Hematocrit (Bld) [Volume fraction] 43.1 % Normal 39.0-55.0 [facility] Comment on above: Performed By: #### L [id number] #### [facility] ([facility]) [address] [place] [address] Hemoglobin (Bld) [Mass/Vol] 14.3 g/dL Normal 13.0-17.0 [facility] Comment on above: Performed By: #### L [id number] #### [facility] ([facility]) [address] [place] [address] MCH (RBC) [Entitic mass] 30.4 pg Normal 27.0-33.0 [facility] Comment on above: Performed By: #### L [id number] #### [facility] ([facility]) [address] [place] [address] MCV (RBC) [Entitic vol] 91.7 fL Normal 82.0-98.0 [facility] Comment on above: Performed By: #### L [id number] #### [facility] ([facility] [place] [address] [place] [address] PLATELETS (10*3/UL) IN BLOOD AUTOMATED COUNT 203 10*3/uL Normal 150-400 [facility] Comment on above: Performed By: #### L [id number] #### [facility] ([facility] [place] [address] [place] [address] RBC (Bld) [#/Vol] 4.70 10*6/uL Normal 4.20-5.70 [facility] Comment on above: Performed By: #### L [id number] #### [facility] ([facility]) [address] [place] [address] WBC (Bld) [#/Vol] 15.55 10*3/uL High 4.00-10.60 [facility] Comment on above: Performed By: #### L [id number] #### [facility] ([facility]) [address] [place] [address] Letter (Out)on 03-14-2022 Letter (Out) [id number] Kam Bartletthumaira tt 1965 M Date Provider Department Center 03/14/2022 [id number], GENERIC PRO*INIT None No family history on file Normal [facility] POCT GLUCOSE METER UNSOLICIT ED RESULTSon 03-14-2022 Glucose [Mass/Vol] 119 mg/dL High 70-105 [facility] Comment on above: Result Comment: jmat analilia Performed By: #### L [id number] ####[facility] ([facility])[address] [place] [address] Glucose [Mass/Vol] 123 mg/dL High 70-105 [facility] Comment on above: Result Comment: rsha w2 Performed By: #### L [id number] ####[facility] ([facility])[address] [place] [address] HPon 03-13-2022 HP History Of Present I llness Rios Bartlett is a 56 y.o. male presenting with LBP and radicular pain left lower extremity . 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 Surgical History He has a past surgical history that includes Meniscectomy (Right, 1985); Testicle surgery (1986); Knee surgery (Right, 1998); Knee surgery (Right, 1999); Cervical spine surgery (2008); Knee arthroscopy w/ meniscectomy (Left, 2012); Knee Arthroplasty (Left, 2013); Knee surgery (Left, 2018); Knee surgery (Left, 2017); Tonsillectomy (2019); Adenoidectomy (2019); Uvulopalatopharyngoplasty (2019); and Lipoma resection (08/2021). Social History He reports that he has never smoked. He has been exposed to tobacco smoke. He has never used smokeless tobacco. He reports that he does not currently use alcohol. He reports that he does not currently use drugs. Family History No family history on file. Allergies Morphine Medications Medications Prior to Admission Medication Sig Dispense Refill Last Dose ibuprofen 600 mg tablet Take 600 mg by mouth every 8 (eight) hours if needed for mild pain (1-3 pain score). Past Month Review of Systems Patient reports numbness but reports no tingling. He reports no fever and no chills. He reports no chest pain. He reports no cough. He reports no heartburn. He reports no arthralgias/joint pain. Last Recorded Vitals Patient Vitals for the past 24 hrs: BP Temp Temp src Resp Height Weight 03/13/22 0600 130/89 36.1 ???C (97 ???F) Temporal 16 1.753 m (5' 9 ) (!) 141 kg (310 lb 13.6 oz) Physical Exam Musculoskeletal:: Spine Musculoskeletal Examination: limited thoracolumbar flexion and lumbosacral extension, lumbar pain with flexion and extension, paraspinal tenderness, and normal alignment of cervical spine and no cervical paraspinal muscle tenderness. Upper Extremity: Bilateral finger flexor strength 5/5 and abduction strength 5/5 and biceps strength 5/5, wrist strength 5/5, triceps strength 5/5, and normal sensation to pinprick. Lower Extremity: Bilateral normal straight leg raising and sensation to prinpick and flexion at the hip strength 5/5, quadriceps strength 5/5, tibialis anterior strength 5/5, plantar flexion strength 5/5, and extensor hallicis longus strength 5/5. Neurologic: Neurologic Detailed Exam: Moser reflex absent. Reflexes: DTRs 2+ bilaterally throughout. Gait and Station: normal gait; Relevant Lab Results Lab Results Component Value Date BUN 15 03/04/2022 CALCIUM 8.9 03/04/2022 EGFR >60 03/04/2022 Relevant Imaging Results MRI of the lumbar spine L4-5, disc degeneration, spinal canal and foraminal stenosis. Assessment/Plan Rios Bartlett is a 56 yo M return patient with low back pain and radicular pain left more than right lower extermity secondary to L4-L5 DDD w/ spinal canal and foraminal stenosis -Due to severity of the patient symptoms affecting daily activities and quality of life and failure of conservative management to give sustain relief, patient is keen on surgical management. Spinal fusion is indicated due to after decompression of the foramen. The spine will become unstable therefore a fusion will be necessary. Preoperative diagnosis: L4-L5 disk degeneration prolapse with foraminal stenosis and lumbar radiculopathy (ICD-10 M51.36, M99.53, M54.16). Planned procedure: 1. L4-L5 posterior lumbar spine decompression (11358). 2. L4-L5 transforaminal lumbar interbody fusion using autograft, crushed cancellous allograft, and machine threaded bone dowel spacer ; and posterolateral fusion using autograft, crushed cancellous allograft (02097, 76900). 3. L4-L5 posterior spinal instrumentation using USS system from [employer] (12142). 4. Local bone autograft harvesting as well as use of crushed cancellous allograft (12578, 72007). 5. Use of intraoperative fluoroscopy (09818). Planned procedure date: 03/13/22 Discussed proposed procedure with patient/family. All questions answered in full. History and physical examination completed. Surgical Risk Reviewed with the patient: Lumbar Spine Surgery: The patient was counseled on thoracic/lumbar spine surgical risks including but not limited to intra-operative complication from anesthesia, including , dural tear, temporary or permanent paralysis, malposition of hardware that may require revision, and injury of intra-abdominal/intra-thorac ic organs that may require exploration and repair. Post-operative complications including but not limited to blindness, infection, blood clot in legs and/or lungs, incomplete relief of pain, pseudoarthrosis, and requirement of further surgery at the same or adjacent level. Normal [facility] NURSNOTEon 03-13-2022 NURSNOTE FAMILY UPDATES XIONG D TO WR, NO FAMILY NEEDS AT THIS TIME. Normal [facility] OPNOTEon 03-13-2022 OPNOTE L4-L5 DECOMPRESSION WITH INTERBODY FUSION (L) Operative Note Date: 03/13/2022 Location: [facility] OR Name: Rios Bartlett, : 1965, Surgeons: Cheikh Walker - Primary Mechanical Product Design Engineer: Ambrosio Liang M.D. 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 Operation: 1. L4-L5 posterior lumbar spine decompression (20829). 2. L4-L5 transforaminal lumbar interbody fusion using autograft, crushed cancellous allograft, [employer] and machine threaded bone dowel spacer 11 mm; and posterolateral fusion using autograft, crushed cancellous allograft and [employer] (58338, 62323). 3. L4-L5 posterior spinal instrumentation using USS system from [employer] (40100). 4. Local bone autograft harvesting as well as use of crushed cancellous allograft (18020, 80693). 5. Use of intraoperative fluoroscopy (17589). 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 Procedure Summary Anesthesia: General ASA: III Position: Prone position on the Kamaljit table in reverse Trendelenburg position. Estimated Blood Loss: 200 mL Total IV Fluids: 1300 mL Drains: Hemovac Urethral Catheter Non-latex;Other (Comment) 16 Fr. (Active) Implants Type Name Action Serial No. Bone TISS BONE,CANC,CHIPS,PRES,60CC - [id number] - [id number] Implanted [id number] Allograft Tissue TISSUE VIVIGEN, 10 - [id number] - [id number] Implanted [id number] Allograft Tissue TISSUE VIVIGEN, 10 - [id number] - [id number] Implanted [id number] Bone TISS ALLOGRAFT,TP11MM,6X1X2.5 - [id number] - [id number] Implanted [id number] Screw SCREW,SIDE-OPEN,7.0M,50MM - [id number] Implanted Clamp COLLAR,TI,GROOVES - [id number] Implanted Nut TI-NUT,11M-WIDTH,ACROSS-FLAT S - [id number] Implanted Pin HILDA,6.0M,TI-HARD,50M - [id number] Implanted Staff: Wool Hat Sanding Machine Operator: Freya Loja, ROGELIO Scrub Person: Tabatha German CST [place]ee Scrub: Josie English Complications: None. Counts: Needle, sponge, and instrument count correct at the end of surgical procedure. Disposition: The patient was transferred to the recovery room, extubated in a stable condition. Indication: Mr. Bartlett is 56 year-old patient who was seen in the clinic with a chief complaint of low back pain as well as radicular pain in his left lower extremity. X ray-ray, and MRI scan has confirmed L4-L5 disk degeneration prolapse with spinal canal as well as foraminal stenosis. Due to severity of symptoms affecting daily activity and failure of conservative treatment, we recommended the above-mentioned surgical procedure. We explained to the patient the risk and benefit of the above-mentioned surgical procedure, which include but not limited to intraoperative complications from anesthesia including , dural tear, spinal cord or nerve root injury that may result in temporary or permanent paralysis, malposition of hardware that may require revision, injury of intra-abdominal organs that may require exploration and repair. Postoperative complications include but not limited to blindness, infection, DVT/PE, incomplete relief of symptoms, pseudoarthrosis, and requirement of further surgery at the same or adjacent level. The patient fully understood risks and benefits, signed consent for surgery as well as blood transfusion. The patient had been cleared for surgery by family doctor. The patient also has been seen in preoperative clinic at [facility]. Procedure: The patient was taken to the operating room today and was positively identified, received a smooth general endotracheal intubation and received IV antibiotic for surgical prophylaxis. Thigh-high LIDIA stockings as well as sequential compression devices used for DVT prophylaxis. Spinal cord monitoring leads were applied. Under aseptic condition, a Duarte catheter was inserted. The patient was positioned prone on the Kamaljit table in reverse Trendelenburg position. All bony prominences were carefully padded. The C-arm was brought into AP and lateral position and marked level of skin incision centered over L4-L5 disk space. The skin was then prepped and draped in the usual manner. The intended area of skin incision was then infiltrated with 10 mL of 0.5% Marcaine with epinephrine. A midline exposure was done with sharp dissection, electrocautery dissection, and periosteal elevator. The transverse processes of L4-L5 were exposed bilaterally. After confirmation of correct level of surgery, attention was directed for insertion of the pedicle screws. Using anatomical landmarks and under lateral fluoroscopic guidance, the screw track was cannulated with high-speed bur. Blunt probing was performed. Blunt cannulation was then done into the intervertebral body without penetration of the anterior co (more content not included)... Normal [facility] POCT GLUCOSE METER UNSOLICIT ED RESULTSon 03-13-2022 Glucose [Mass/Vol] 166 mg/dL High 70-105 [facility] Comment on above: Result Comment: iede ldu Performed By: #### L [id number] #### [facility] ([facility]) [address] [place] [address] Glucose [Mass/Vol] 98 mg/dL Normal 70-105 [facility] Comment on above: Result Comment: epaw low Performed By: #### L [id number] #### [facility] ([facility]) [address] [place] [address] VITAMIN D 25 HYDROXYon 03-13 CALCIDIOL (25 [place] VITAMIN D3) (NG/ML) IN SER/PLAS 26.0 ng/mL Low 30.0-80.0 [facility] Comment on above: Result Comment: >80. 0 Toxicity possible Performed By: #### L [id number] #### [facility] ([facility]) [address] [place] [address] Orders Onlyon 03-10-2022 Orders Only [id number] Alexis Bartlett tt 1965 M Date Provider Department Center 03/10/20221975-JL V[facility]ES [facility] Medical C No family history on file Normal [facility] SARS-COV-2 TMAon 03-10-2022 SARS-CoV-2 (COVID-19) RNA WADE+probe Ql (Unsp spec) Not detected Normal Not Detected [facility] Comment on above: Result Comment: Not detected does not preclude SARS-CoV-2 infection and should not be used as the sole basis for patient management decisions. Not detected results must be combined with clinical observations, patient history, and epidemiological information. The Aptima SARS-CoV-2 assay is a nucleic acid amplification test intended for the qualitative detection of RNA from SARS-CoV-2 isolated and purified from nasopharyngeal ([employer]PA[employer]ER), oropharyngeal (OP), nasal swab, sputum, and bronchoalveolar lavage (BAL) specimens from patients with signs and symptoms of infection who are suspected of COVID-19. Results are for the identification of SARS-CoV-2 RNA. The SARS-CoV-2 RNA is generally detectable during the acute phase of infection. The Aptima SARS-CoV-2 Assay on the 19pay and 19pay Fusion system is intended for use by laboratory personnel specifically instructed and trained in the operation of the [place] and [place] Fusion system. The Aptima SARS-CoV-2 assay is only for use under the Food and Drug Administration Emergency Use Authorization. Testing is limited to laboratories certified under the Clinical Laboratory Improvement Amendments of 1988 (CLIA), 42 U.S.C. ???263a, to perform high complexity tests. Performed By: #### L [id number] #### [facility] ([facility]) [address] [place] [address] Orders Onlyon 03-09-2022 Orders Only [id number] Alexis Bartlett tt 1965 M Date Provider Department Center 03/09/2022 FREYA GUAMAN [facility] No family history on file Normal [facility] *MRSA/MSSA DNA NASALon 03-04 *MRSA/MSSA DNA NASAL Clinical Report: (D) Specimen: NASAL SWAB Collected: 03/04/2022 12:14 Status: Final Last Updated: 03/04/2022 21:39 MSSA DNA (Final) Methicillin Susceptible Staphylococcus aureus DNA Detected MRSA DNA (Final) Negative Normal [facility] Comment on above: Performed By: #### 3 1595 #### [facility] [address] [place] [address], [facility] APTTon 03-04-2022 aPTT Coag (Bld) [Time] 26.7 s Normal 25.0-35.0 [facility] Comment on above: Result Comment: ALL RESULTS MUST BE INTERPRETED WITH RESPECT TO BLOOD DRAWING ARTIFACT OR DILUTION ERROR OF ANTICOAGULANT AT THE TIME OF SAMPLING. THE APTT SHOULD NOT BE USED TO MONITOR UNFRACTIONATED HEPARIN THERAPY, THIS LABORATORY NO LONGER HAS AN ESTABLISHED THERAPEUTIC RANGE BASED ON THE APTT. IT IS RECOMMENDED THAT THE UFH - HEPARIN ASSAY (ANTI-XA ACTIVITY) BE USED FOR THIS PURPOSE. Performed By: #### 5 7307, [id number] #### [facility] [address] [place] [address], [facility] BASIC METABOLIC PANELon 09-0 -2021 Calcium [Mass/Vol] 8.9 mg/dL Normal 8.6-10.3 [facility] Comment on above: Performed By: #### 0 0071 #### [facility] [address] [place] [address], [facility] Chloride [Moles/Vol] 105 mmol/L Normal 98-107 [facility] Comment on above: Performed By: #### 0 0071 #### [facility] [address] [place] [address], [facility] CO2 [Moles/Vol] 26 mmol/L Normal 21-31 [facility] Comment on above: Performed By: #### 0 0071 #### [facility] [address] [place] [address], [facility] Creatinine [Mass/Vol] 1.00 mg/dL Normal 0.70-1.30 [facility] Comment on above: Performed By: #### 0 0071 #### [facility] [address] [place] [address], [facility] GFR/1.73 sq M.predicted among non-blacks MDRD (S/P/Bld) [Vol rate/Area] mL/min/{1.73_m2} Normal >60 [facility] Comment on above: Result Comment: [facility]'s estimated glomerular filtration rate (eGFR) will no longer include consideration of race in its calculation. The National Kidney Foundation's eGFR Task Force developed new recommendations for the estimation of the glomerular filtration rate in the [place] They recommend immediate implementation of the new equation refit without the race variable in all laboratories because the calculation does not include race. In addition to not including race in the calculation and reporting, it included diversity in its development, and has acceptable performance characteristics and potential consequences that do not disproportionately affect any one group of individuals. Performed By: #### 0 0071 #### [facility] [address] [facility] [address], [facility] Glucose [Mass/Vol] 95 mg/dL Normal 70-100 [facility] Comment on above: Performed By: #### 0 0071 #### [facility] [address] [place] [address], [facility] Potassium [Moles/Vol] 4.9 mmol/L Normal 3.5-5.1 [facility] Comment on above: Performed By: #### 0 0071 #### [facility] [address] [place] [address], [facility] Sodium [Moles/Vol] 138 mmol/L Normal 136-145 [facility] Comment on above: Performed By: #### 0 0071 #### [facility] [address] [facility] [place] [address], [facility] Urea nitrogen [Mass/Vol] 15 mg/dL Normal 7-25 [facility] Comment on above: Performed By: #### 0 0071 #### [facility] [address] [facility] [place] [place] [address], [facility] CBC W/DIFFon 03-04-2022 ABS IMM GRANS 0.0 10*3/uL Normal 0.0-0.2 [facility] Comment on above: Performed By: #### 5 0103 #### [facility] [address] [place] [address], [facility] ABS NEUTROPHILS 6.7 10*3/uL Normal 1.6-7.6 [facility] Comment on above: Performed By: #### 5 0103 #### [facility] [address] [place] [address], [facility] Basophils (Bld) [#/Vol] 0.0 10*3/uL Normal 0.0-0.2 [facility] Comment on above: Performed By: #### 5 0103 #### [facility] [address] [place] [address], [facility] Basophils/100 WBC (Bld) 0.4 % Normal 0.0-1.0 [facility] Comment on above: Performed By: #### 5 0103 #### [facility] [address] [facility] [place] [address], [facility] Eosinophils (Bld) [#/Vol] 0.2 10*3/uL Normal 0.0-0.5 [facility] Comment on above: Performed By: #### 5 0103 #### [facility] [address] [facility] [place] [place] [address], [facility] Eosinophils/100 WBC (Bld) 2.0 % Normal 0.0-6.0 [facility] Comment on above: Performed By: #### 5 0103 #### [facility] [address] [facility] [place] [address], [facility] Erythrocyte distribution width (RBC) [Ratio] 13.8 % Normal 11.5-15.0 [facility] Comment on above: Performed By: #### 5 0103 #### [facility] [address] [facility] [place] [address], [facility] Hematocrit (Bld) [Volume fraction] 48.0 % Normal 39.0-50.0 [facility] Comment on above: Performed By: #### 5 0103 #### [facility] [address] [facility] [place] [place] [address], [facility] Hemoglobin (Bld) [Mass/Vol] 15.9 g/dL Normal 13.0-17.0 [facility] Comment on above: Performed By: #### 5 0103 #### [facility] [address] [place] [address], [facility] IMMATURE GRANS 0.3 % Normal 0.0-1.0 [facility] Comment on above: Performed By: #### 5 0103 #### [facility] [address] [facility] [place] [address], [facility] Lymphocytes (Bld) [#/Vol] 3.3 10*3/uL Normal 1.2-4.0 [facility] Comment on above: Performed By: #### 5 0103 #### [facility] [address] [facility] [place] [address], [facility] Lymphocytes/100 WBC (Bld) 29.7 % Normal 20.0-45.0 [facility] Comment on above: Performed By: #### 5 0103 #### [facility] [address] [facility] [place] [address], [facility] MCH (RBC) [Entitic mass] 29.8 pg Normal 27.0-33.0 [facility] Comment on above: Performed By: #### 5 0103 #### [facility] [address] MCHC (RBC) [Mass/Vol] 33.1 g/dL Normal 32.0-35.0 [facility] Comment on above: Performed By: #### 5 3 #### [facility] [address] [place] [address], [facility] MCV (RBC) [Entitic vol] 90.1 fL Normal 82.0-98.0 [facility] Comment on above: Performed By: #### 5 3 #### [facility] [address] [facility] [address], [facility] Monocytes (Bld) [#/Vol] 0.8 10*3/uL Normal 0.1-1.0 [facility] Comment on above: Performed By: #### 5 3 #### [facility] [address] [place] [address], [facility] MONOS 7.4 % Normal 5.0-12.0 [facility] Comment on above: Performed By: #### 5 0103 #### [facility] [address] [place] [address], [facility] Neutrophils/100 WBC (Bld) 60.2 % Normal 40.0-72.0 [facility] Comment on above: Performed By: #### 5 0103 #### [facility] [address] Nucleated RBC/100 WBC (Bld) [Ratio] 0 % Normal 0-0 [facility] Comment on above: Performed By: #### 5 0103 #### [facility] [address] [place] [address], [facility] PLAT CNT 197 10*3/uL Normal 150-400 [facility] Comment on above: Performed By: #### 5 0103 #### [facility] [address] RBC (Bld) [#/Vol] 5.33 10*6/uL Normal 4.20-5.70 [facility] Comment on above: Performed By: #### 5 0103 #### [facility] [address] WBC (Bld) [#/Vol] 11.07 10*3/uL High 4.00-10.60 [facility] Comment on above: Performed By: #### 5 0103 #### [facility] [address] PROTHROMBIN TIMEon 2 INR Coag (PPP) [Relative time] 0.97 {INR} Normal 0.91-1.16 [facility] Comment on above: Result Comment: [facility] P RECOMMENDED INR FOR WARFARIN THERAPY ----- ------- CONDITION INR PROPHYLAXIS OF VENOUS THROMBOSIS 2-3 (HIGH-RISK SURGERY) TREATMENT OF VENOUS THROMBOSIS 2-3 TREATMENT OF PULMONARY EMBOLISM 2-3 PREVENTION OF SYSTEMIC EMBOLISM: 2-3 ACUTE MYOCARDIAL INFARCTION TISSUE HEART VALVES VALVULAR HEART DISEASE ATRIAL FIBRILLATION RECURRENT SYSTEMIC EMBOLISM MECHANICAL HEART VALVE 2.5-3.5 FROM: ORAL ANTICOAGULANTS. MECHANISM OF ACTION, CLINICAL EFFECTIVENESS, AND OPTIMAL THERAPEUTIC RANGE. CHEST 1995;108:231S-246S. Performed By: #### 5 7307, [id number] #### [facility] [address] [facility] [place] [address], [facility] PT Coag (PPP) [Time] 12.9 s Normal 12.3-14.8 [facility] Comment on above: Result Comment: ALL RESULTS MUST BE INTERPRETED WITH RESPECT TO BLOOD DRAWING ARTIFACT OR DILUTION ERROR OF ANTICOAGULANT AT THE TIME OF SAMPLING. Performed By: #### 5 7307, 35645 #### [facility] [address] [facility] [place] [address], [facility] TYPE AND CROSSMATCHon 2021 ABO INTERPRETATION A Normal [facility] Comment on above: Performed By: #### 6 2594 #### [facility] [address] [facility] [place] [address], [facility] RH INTERPRETATION Positive Normal [facility] Comment on above: Performed By: #### 6 2594 #### [facility] [address] [facility] [place] [address], [facility] TYPE AND SCREENon 03-04-2022 AB SCREEN Negative Normal [facility] Comment on above: Performed By: #### L [id number] #### [facility] ([facility]) [address] [facility] [place] [address] ABO group Nom (Bld) A Normal [facility] Comment on above: Performed By: #### L [id number] #### [facility] ([facility]) [address] [place] [address] RH TYPE IN BLOOD Positive Normal [facility] Comment on above: Performed By: #### L [id number] #### [facility] ([facility]) [address] [place] [address] URINALYSISon 03-04-2022 Appearance (U) CLEAR Normal CLEAR [facility] Comment on above: Performed By: #### 1 0008 #### [facility] [address] [place] [address], [place] Bilirubin Ql (U) Negative Normal NEGATIVE [facility] Comment on above: Performed By: #### 1 0008 #### [facility] [address] [place] [address], [place] Color (U) YELLOW Normal YELLOW [facility] Comment on above: Performed By: #### 1 0008 #### [facility] [address] [place] [address], [place] EPIS NONE SEEN Normal FEW,OCC,NON E SEEN [facility] Comment on above: Performed By: #### 1 0008 #### [facility] [address] [place] [address], [place] Glucose Ql (U) Negative Normal NEGATIVE [facility] Comment on above: Performed By: #### 1 0008 #### [facility] [address] [place] [address], [place] Hemoglobin Ql (U) Negative Normal NEGATIVE [facility] Comment on above: Performed By: #### 1 0008 #### [facility] [address] [place] [address], [place] KETONE Negative Normal NEGATIVE [facility] Comment on above: Performed By: #### 1 0008 #### [facility] [address] [place] [address], [place] LEUK OTF Negative Normal NEGATIVE [facility] Comment on above: Performed By: #### 1 0008 #### [facility] [address] [facility]. [address] MUCUS THREADS OCC Abnormal NONE SEEN [facility] Comment on above: Performed By: #### 1 0008 #### [facility] [address] [facility]. [address] Nitrite Ql (U) Negative Normal NEGATIVE [facility] Comment on above: Performed By: #### 1 0008 #### [facility] [address] pH (U) 5.5 [pH] Normal 5.0-8.0 [facility] Comment on above: Performed By: #### 1 0008 #### [facility] [address] Protein Ql (U) Negative Normal NEGATIVE [facility] Comment on above: Performed By: #### 1 0008 #### [facility] [address] RBC 0-2 Abnormal NONE SEEN [facility] Comment on above: Performed By: #### 1 0008 #### [facility] [address] SPEC GRAV 1.020 Normal 1.015-1.020 [facility] Comment on above: Performed By: #### 1 0008 #### [facility] [address] WBC UA 0-2 Abnormal NONE SEEN [facility] Comment on above: Performed By: #### 1 0008 #### [facility] [address] MRI LUMBAR SPINE WO CONTRAST on 01-28-2022 MRI LUMBAR SPINE WO CONTRAST [facility] Department of Radiology [address] [place], [place] [id number] Patient Name: RIOS BARTLETT : 1965 Sex: M Age: Race: White Pt. Location: Patient Status: O Ordered Date: 01/07/2022 12:25:00 PM Completed Date: 01/28/2022 11:47 AM Requesting Provider: CHEIKH WALKER Attending Provider: Report Copy To: Signs & Symptoms: M54.16 Radiculopathy, lumbar region I10 History: [place] c-spine hardware/L knee replacement Comments: Evaluate Exam: MRI LUMBAR SPINE WO CONTRAST MRI LUMBAR SPINE WO CONTRAST 01/28/2022 11:47 AM CLINICAL INDICATIONS: M54.16 Radiculopathy, lumbar region I10 TECHNOLOGIST COMMENTS: LBP down both legs with numbness, no back surgery, no known trauma, states hx: pinched nerves and herniated discs x5 years ago QUESTION FOR THE RADIOLOGIST: Evaluate PROTOCOL: The following pulse sequences were utilized when imaging the lumbar spine: sagittal T2, sagittal T1, sagittal STIR, and axial T2. COMPARISON: Comparison is made with the lumbar spine radiographs of the 03/21/2021. FINDINGS: The vertebral heights are normal. There are mild degenerative changes in the lumbar spine. There is a heterogeneous marrow signal in the vertebrae from degenerative arthritis. There is no evidence of spondylolisthesis. No acute bony pathology is identified. No significant paravertebral soft tissue abnormality seen. At T12-L1, L1-L2 and L2-L3, there is no evidence of disc herniation, spinal stenosis or narrowing of the neural foramina. At L3-L4, there is a central disc protrusion with moderate degree of central canal narrowing. Neural foramina are otherwise patent. At L4-L5, there is a disc protrusion. Facet arthropathy seen bilaterally with moderate degree of spinal stenosis. Neural foramina are narrowed. At L5-S1, there is some minimal disc bulging. No evidence of significant spinal stenosis is seen. Neural foramina are patent. Conus is seen at the level of T12. No intrathecal signal abnormalities identified. IMPRESSION: 1. There is a disc protrusion at L3-L4 and L4-L5 with moderate degree of spinal stenosis. Neural foramina are narrowed at L4-L5. Disc bulging is seen at L5-S1. 2. Degenerative arthritic changes are seen in the lower dorsal and lumbar spine. 3. No malalignment is identified. Electronically signed: Jairo Tapia. Transcribed by: [email or web address], User Resident: Electronically Signed by: JAIRO TAPIA @ 01/28/2022 03:00 PM Normal [facility] Comment on above: Order Comment: Evalu ate COVID-19 Antigenon 2 COVID-19 Antigen Healthcare Worker?: N Reference Range: Negative Negative results, from patients with symptom onset beyond five days, should be treated as presumptive and confirmation with a molecular assay, if necessary, for patient management, may be performed. Negative results do not rule out COVID-19 and should not be used as the sole basis for treatment or patient management decisions, including infection control decisions. Negative results should be considered in the context of a patient's recent exposures, history and the presence of clinical signs and symptoms consistent with COVID-19. The [employer] SARS Antigen HANY does not differentiate between SARS-CoV and SARS-CoV-2. This test was developed and its performance characteristic determined by [employer] and validated at [facility]. This test has not been FDA cleared or approved. This test has been authorized by FDA under an Emergency Use Authorization (EUA). This test has been validated in accordance with the FDA's Guidance Document (Policy for Diagnostics Testing in Laboratories Certified to Perform High Complexity Testing under CLIA prior to Emergency Use Authorization for Coronavirus Disease-2019 during the Public Health Emergency) issued on September 28, 2019. This test is only authorized for the duration of time the declaration that circumstances exist justifying the authorization of the emergency use of in vitro diagnostic tests for detection of SARS-CoV-2 virus and/or diagnosis of COVID-19 infection under section 564(b)(1) of the Act, 21 U.S.C. 360bbb-3(b)(1), unless the authorization is terminated or revoked sooner. SARS-CoV+SARS-CoV-2 (COVID-19) Ag [Presence] in Respiratory specimen by Rapid immunoassay Negative for SARS Antigen by HANY PERFORMED BY: [place] [address] PATHOLOGIST JUNIOR JAVA DEVELOPER LEONA ALVAREZ M.D. [facility] Comment on above: Performed By: #### S OFIANEG, COVID-19 SOHAIL #### [place] [id number] [facility] Sohail Ag Negativeon 11-04-19 Sohail Ag Negative Negative Normal Negative [facility] Comment on above: Result Comment: This is a duplicate Sohail SARS Antigen (HANY) result to be used for statistical tracking purpose only. PERFORMED BY: [place] [address] PATHOLOGIST JUNIOR JAVA DEVELOPER LEONA ALVAREZ M.D. Performed By: #### S OFIANEG, COVID-19 SOHAIL #### [place] [id number] [facility] LUMBAR SPINE 2 OR 3 [facility] LUMBAR SPINE 2 OR 3 [facility] Department of Radiology [address] [place] [address] Patient Name: RIOS BARTLETT : 1965 Sex: M Age: Race: White Pt. Location: 84 Patient Status: D Ordered Date: 03/21/2021 1:15:00 PM Completed Date: 03/21/2021 01:11 PM Requesting Provider: DARON GOMEZ Attending Provider: TANYA NOVOA Report Copy To: Signs & Symptoms: M54.17 Radiculopathy, lumbosacral region I10 History: [place] Comments: Exam: LUMBAR SPINE 2 OR 3 VWS LUMBAR SPINE 2 OR 3 VWS 03/21/2021 1:11 PM CLINICAL INDICATIONS: M54.17 Radiculopathy, lumbosacral region I10 TECHNOLOGIST COMMENTS: ortho consult lumbar pain with pain going down lt leg QUESTION FOR RADIOLOGIST: PROTOCOL: AP, Lateral and L5-S1 spot film was obtained. COMPARISON: None. FINDINGS: 3 views of the lumbar sacral spine. There are 5 nonrib-bearing lumbar type vertebral bodies in satisfactory alignment. There is facet joints close and narrowing from L3 to S1 level. There is mild disc space narrowing at L4-5 and L5-S1 level. Mild vascular constipation in the abdominal aorta. Anterior bony spurring at the thoracolumbar junction. Nonobstructive bowel gas pattern is visualized. IMPRESSION: Mild lumbar spondylosis with no evidence of acute bony abnormality. Electronically signed: Laurent Lopez. Transcribed by: [email or web address], User Resident: Electronically Signed by: LAURENT LOPEZ @ 03/22/2021 02:01 PM Normal [facility] XR LUMBAR SPINE (2-3 VIEWS)o n 02-08-2021 XR LUMBAR SPINE (2-3 VIEWS) EXAMINATION: THREE XRAY VIEWS OF THE LUMBAR SPINE 02/08/2021 12:10 pm COMPARISON: None. HISTORY: ORDERING SYSTEM PROVIDED HISTORY: pain TECHNOLOGIST PROVIDED HISTORY: pain FINDINGS: Vertebral height alignment are preserved. Mild loss of disc space height at L3-L4 and L4-L5 noted with associated hypertrophic endplate spurring compatible with degenerative change. Mild posterior joint arthrosis is noted. Soft tissues are grossly unremarkable in appearance. IMPRESSION: Degenerative changes most notable in the mid and lower lumbar spine. Interpreted by: Jermaine Krishnamurthy MD Signed by: Jermaine Krishnamurthy MD 02/08/21 Final result Normal [facility] C-Reactive Proteinon 018 CRP mass conc 0.7 mg/dL Normal <0.9 [facility] Comment on above: Performed By: #### W SR, CRP ####[facility] [address] [place], [place] [phone] CNOVon 01-28-2018 CNOV Office Visit (ORTHCO) ----RIOS BARTLETT ([id number]) 1965 [facility] Time Provider Department01/28/18 8:40 AM HAMZAH HEMPHILL During your visit today, we recorded the following information about you: Weight Height 122.5 kg 1.753 Florencio Hemphill, DO 02/07/2018 6:54 PM Signednew imagesHamzah Hemphill, DO 02/07/2018 6:54 PM SignedCONSULT ORTHOPAEDIC: KNEEPRIMARY CARE PHYSICIAN: DANYELL YunEFERRING PROVIDER: Mary Kline MD12[address] [facility] [address]KRNVEYHAGW AND PLANHPI: Rios is a 52-year-old male who presents for evaluation of his chronicleft knee pain. Patient first underwent left knee arthroscopy in 2012,followed by left total knee arthroplasty in 2013. Patient continued to havepain about the left knee with decreased range of motion and instability andunderwent revision surgery with polyethylene exchange and quad tendon VYadvancement in 2017. Patient states he has persistent pain, instability, anddecreased range of motion about the left knee. The majority of his pain islocated over the lateral aspect of the left tibia from the knee down to thedistal third tibia. This pain is worse with ambulation and weightbearingactivities. He does admit to some low back pain as well. Patient has seenpain management as well who performed geniculate nerve blocks with minimal painrelief. Patient has tried several anti-inflammatories and pain medicationincluding tramadol and gabapentin which she is currently on with almost nosymptomatic relief. He denies any injury or trauma about the left lowerextremity.Physical exam: Midline incision well-healed without signs of erythema, warmthor drainage. Range of motion left knee from 10-90?. There is a 5-10?extension lag. There is slight laxity in anterior/posterior stress in fullflexion. Otherwise implants with good stability with anterior/posterior stressand varus/valgus stress. Motor 4/5 in knee extension on the left. There issome tibial rise appreciated with resisted knee extension. Otherwise motor 5/5intact throughout. Sensation intact to light touch L3-S1. Palpable distalpulses.Imaging: Radiographs left knee with appropriate sized implants with goodalignment. There is a minimal amount of lucency over the distal aspect of thefemoral component, but implants do appear to be well fixed. There is a mildamount patella baja noted on lateral radiograph. Cement mantles appropriate.No other acute osseous abnormalityImpression:1. Pain and decreased range of motion left knee status post revision lefttotal knee arthroplasty2. Lumbar radiculopathyPlan: Given this patient's significant quad weakness, instability, and pain, itwas recommended that he return to intensive physical therapy for an additional3 months. He was also instructed to wear his hinged knee brace for stabilitywell engaging in activity. We will also obtain inflammatory markers today torule out infection despite this being well on the differential at this time.Revision surgery was not recommended this patient at this time. He willfollow-up on an as-needed basis.Impression:Left knee painAfter discussion with Rios Bartlett, continued non-operative management ofphysical therapy was chosen. The patient currently has had six months ofunsuccessful non-operative treatment as outlined in the HPI below.The patient has been ordered:No orders placed today.ESRCRPCONSULTS:Patient does not require consults for optimization at this time.ACTIVE PROBLEM LISTAnkylosis of JointCramp and SpasmLow Back PainOther Intervertebral Disc Displacement, Lumbar RegionOther Chronic PainPain in Left LegPain in Left Lower LegPresence of Left Artificial Knee JointSUBJECTIVECHIEF COMPLAINT: Knee PainHPI:Rios Bartlett is a 52 year old male here for evaluation and management of leftknee pain. He has had progressive problems with the knee(s) most of the dayover the past 1.5 year(s) interfering with activities which include exercise,doing cutter v groove, participating in family activities, enjoying hobbies,walking, rising from a sitting position, standing for prolonged periods oftime, getting in and out of a car, dressing, climbing stairs andsafety-increased risk for fall. The problem began limiting activities 1-3 yearsago.Currently the pain in the joint is rated at 7 out of 10 with minimal activity.The pain is constant and is located along the outside aspect. The pain isdescribed as aching and radiating. Relieving factors include rest. There is nospecific incident that brought about this pain.He has no additional complaints.FUNCTIONAL STATUS: Walk indoors, such as around the house (1.75 METs)Do light work around the house, such as dusting or washing dishes (2.70 METs)Take care of self, that is eating, dressing, bathing, using the toilet (2.75METs)Walk a block or two on level ground (2.75 METs)Do moderate work around the house such as vacuuming, sweeping floors, orcarrying in groceries (3.50 METs)Do yardwork, such as raking leaves, weeding,or pushing a power mower (4.50 METs)Climb a flight of stairs or walk up a hill (5.50 METs)Preoperative Ambulatory Status: Independent Community DistancesNumber of Entry Steps: 1Bedroom Location: First floorBathroom Location: First floorCaregiver Assistance: Consistent/Live-In (5-7 days/wk)Home Location: Up to 150 milesPREVIOUS TREATMENTS:Previous Surgery: Knee ReplacementREVIEW OF SYSTEMS:GENERAL: Denies fever, chills malaise and weight loss..PAIN ASSESSMENT: See HPI.HEENT: No recent change in vision or hearing..CARDIOVASCULAR: Denies chest pain, history of A-fib, valvular disease,hypertension, CHF or pacemaker/ICD..RESPIRATORY: Denies SOB, sputum production, dyspnea, COPD and hemoptysis..GI: Denies GI ulcers, inflammatory disease, ascites or liver disease..: Denies change in frequency or urgency, kidney disease, and burning withurination..MUSCULOSKELET AL: See HPI.SKIN: Denies rash or itching..PSYCHOLOGICAL: Denies uncontrolled depression or anxiety..NEURO: Denies CVA, seizures, headaches..ENDOCRINE: Denies diabetes, thyroid disease..HEMATOLOGY/LYMPHOLO GY: Denies cancer, bleeding or clotting disorders,anemia,and DVT's..ALLERGIC/IMMUNOLOGICA L: Denies risks for infection, or recent MRSA infections.Surgical Risk Factors:Morbid ObesityNo past medical history on file.No past surgical history on file.No family history on file.Social History Marital status: Spouse name: Years of education: Number of children:Social History Main Topics Drug use: UnknownALLERGIES: MorphineMEDICATIONS:traMADol (ULTRAM) 50 mg tablet TAKE 1 TO 2 TABLETS BY MOUTH 4 TIMES A DAY ASNEEDEDVIMOVO 375-20 mg TbID Take 1 tablet by mouth twice daily before meals.ULORIC 40 mg tab Take 40 mg by mouth once daily.diazePAM (VALIUM) 10 mg tablet TAKE 1 TABLET BY MOUTH 1 HOUR PRIOR TO MRIPHYSICAL EXAM:Ht 175.3 cm (5' 9 ) Wt 122.5 kg (270 lb) BMI 39.87 kg/m?All other systems deferred.GENERAL: Appears healthy, well-nourished, no deformities.HABITUS: ObeseGAIT: Antalgic to the leftKNEE EXAM:Left: Alignment: Neutral Range of motion is 10 degrees in extension and 90 degrees of flexion. Extension Lag: < 10 degrees Pain with ROM: No Effusion: Slight Tender to the palpation of Medial joint line, Lateral joint lineand lateral calf Pain with patellar compression: No Stability: Anterior/Posterior stable and Varus/Valgus stable Hip Exam: flexion to 100+ degrees, full extension,internal/external rotation adequate and no pain with log roll Neurovascular Status: Sensation Intact, Moves foot and ankle up ANDdown and 2+ dorsalis pedisDATA:Diagnostic tests reviewed for today's visit:Most recent labsLeft knee X-Ray: Post-operative XRay: Implants are well aligned.Implants are well fixed.There is no evidence of loosening.The following conditions were addressed during the office visit today:Obesity - Weight management strategies and Chronic narcotic use - Opiatemedication appropriate use counselingSIGNATURE: Hamzah Hemphill DO PATIENT NAME: Rios Gill: January 28, 2018 : 8:58 AMHamzah Hemphill DO 01/28/2018 9:40 AM SignedFollow up as neededReferring Provider: MARY KLINE [[id number]]Allergies As of Date: 01/28/2018 Noted Allergy ReactionMORPHINE 01/28/2018 9 - ItchingDate Reviewed: 01/28/2018Reviewed by: Marc Donaldson) ROGELIO Mistry - Fully AssessedReason for Visit: Left Knee Pain [1208]Primary Visit Diagnosis:Left knee pain, unspecified chronicity [M25.562]Order(s):XR LEG FRONTAL HIP TO ANKLE MECHANICAL AXIS [9697829] Order #: [id number] FUTURE XR KNEE GENERAL 4V AP BOTH/PA BOTH/LAT/MERC LT [[id number]] Order #: [id number] FUTURE C-REACTIVE PROTEIN (CRP) [SQCRP] Order #: [id number] FUTURE SED RATE WESTERGREN [SQWSR] Order #: [id number] FUTURE CONSULT TO PHYSICAL THERAPY [9032] Order #: [id number]: 1Prescriptions as of 01/28/2018 Sig: TRAMADOL 50 MG TABLET TAKE 1 TO 2 TABLETS BY MOUTH * VIMOVO 375 MG-20 MG TABLET,IM* Take 1 tablet by mouth twice * ULORIC 40 MG TABLET Take 40 mg by mouth once gisell* DIAZEPAM 10 MG TABLET TAKE 1 TABLET BY MOUTH 1 HOUR*Problem List As Of Date 01/28/2018 Noted Resolved Ankylosis of joint [M24.60] INVALID FOR* Cramp and spasm [R25.2] INVALID FOR* Low back pain [M54.5] INVALID FOR* Other intervertebral disc displacement, lumbar *INVALID FOR* Other chronic pain [G89.29] INVALID FOR* Pain in left leg [M79.605] INVALID FOR* Pain in left lower leg [M79.662] INVALID FOR* Presence of left artificial knee joint [Z96.652]INVALID FOR* Other instructions from your clinician: Follow up as neededEncounter Number: [id number] Status:Closed by HAMZAH HEMPHILL on 02/07/18 Normal [facility] PROGRESSon 01-28-2018 Protein mass conc HNO ID: [id number] thor: Hamzah HammarceloService: (none)Author Type: PhysicianType: Progress NotesFiled: 02/07/2018 6:54 PMNote Text:CONSULT ORTHOPAEDIC: KNEEPRIMARY CARE PHYSICIAN: ED Yun PROVIDER: Mary Kline MD12[address] [facility] [address]KCCEVQCTHI AND PLANHPI: Rios is a 52-year-old male who presents for evaluation of hischronic left knee pain. Patient first underwent left knee arthroscopy [id number], followed by left total knee arthroplasty in 2013. Patient continuedto have pain about the left knee with decreased range of motion andinstability and underwent revision surgery with polyethylene exchange andquad tendon VY advancement in 2016. Patient states he has persistentpain, instability, and decreased range of motion about the left knee. Themajority of his pain is located over the lateral aspect of the left tibiafrom the knee down to the distal third tibia. This pain is worse withambulation and weightbearing activities. He does admit to some low backpain as well. Patient has seen pain management as well who performedgeniculate nerve blocks with minimal pain relief. Patient has triedseveral anti-inflammatories and pain medication including tramadol andgabapentin which she is currently on with almost no symptomatic relief.He denies any injury or trauma about the left lower extremity.Physical exam: Midline incision well-healed without signs of erythema,warmth or drainage. Range of motion left knee from 10-90?. There is a5-10? extension lag. There is slight laxity in anterior/posterior stressin full flexion. Otherwise implants with good stability withanterior/posterior stress and varus/valgus stress. Motor 4/5 in kneeextension on the left. There is some tibial rise appreciated withresisted knee extension. Otherwise motor 5/5 intact throughout.Sensation intact to light touch L3-S1. Palpable distal pulses.Imaging: Radiographs left knee with appropriate sized implants with goodalignment. There is a minimal amount of lucency over the distal aspect ofthe femoral component, but implants do appear to be well fixed. There shade mild amount patella baja noted on lateral radiograph. Cement mantlesappropriate. No other acute osseous abnormalityImpression:1. Pain and decreased range of motion left knee status post revision lefttotal knee arthroplasty2. Lumbar radiculopathyPlan: Given this patient's significant quad weakness, instability, andpain, it was recommended that he return to intensive physical therapy elaina additional 3 months. He was also instructed to wear his hinged kneebrace for stability well engaging in activity. We will also obtaininflammatory markers today to rule out infection despite this being wellon the differential at this time. Revision surgery was not recommendedthis patient at this time. He will follow-up on an as-needed basis.Impression:Left knee painAfter discussion with Rios Bartlett, continued non-operative management ofphysical therapy was chosen. The patient currently has had six months ofunsuccessful non-operative treatment as outlined in the HPI below.The patient has been ordered:No orders placed today.ESRCRPCONSULTS:Patient does not require consults for optimization at this time.ACTIVE PROBLEM LISTAnkylosis of JointCramp and SpasmLow Back PainOther Intervertebral Disc Displacement, Lumbar RegionOther Chronic PainPain in Left LegPain in Left Lower LegPresence of Left Artificial Knee JointSUBJECTIVECHIEF COMPLAINT: Knee PainHPI:Rios Bartlett is a 52 year old male here for evaluation and management ofleft knee pain. He has had progressive problems with the knee(s) most ofthe day over the past 1.5 year(s) interfering with activities whichinclude exercise, doing cutter v groove, participating in familyactivities, enjoying hobbies, walking, rising from a sitting position,standing for prolonged periods of time, getting in and out of a car,dressing, climbing stairs and safety-increased risk for fall. The problembegan limiting activities 1-3 years ago.Currently the pain in the joint is rated at 7 out of 10 with minimalactivity. The pain is constant and is located along the outside aspect.The pain is described as aching and radiating. Relieving factors includerest. There is no specific incident that brought about this pain.He has no additional complaints.FUNCTIONAL STATUS: Walk indoors, such as around the house (1.75 METs)Do light work around the house, such as dusting or washing dishes (2.70METs)Take care of self, that is eating, dressing, bathing, using the toilet(2.75 METs)Walk a block or two on level ground (2.75 METs)Do moderate work around the house such as vacuuming, sweeping floors, orcarrying in groceries (3.50 METs)Do yardwork, such as raking leaves, weeding,or pushing a power mower (4.50METs)Climb a flight of stairs or walk up a hill (5.50 METs)Preoperative Ambulatory Status: Independent Community DistancesNumber of Entry Steps: 1Bedroom Location: First floorBathroom Location: First floorCaregiver Assistance: Consistent/Live-In (5-7 days/wk)Home Location: Up to 150 milesPREVIOUS TREATMENTS:Previous Surgery: Knee ReplacementREVIEW OF SYSTEMS:GENERAL: Denies fever, chills malaise and weight loss..PAIN ASSESSMENT: See HPI.HEENT: No recent change in vision or hearing..CARDIOVASCULAR: Denies chest pain, history of A-fib, valvular disease,hypertension, CHF or pacemaker/ICD..RESPIRATORY: Denies SOB, sputum production, dyspnea, COPD andhemoptysis..GI: Denies GI ulcers, inflammatory disease, ascites or liver disease..: Denies change in frequency or urgency, kidney disease, and burningwith urination..MUSCULOSKELETAL: See HPI.SKIN: Denies rash or itching..PSYCHOLOGICAL: Denies uncontrolled depression or anxiety..NEURO: Denies CVA, seizures, headaches..ENDOCRINE: Denies diabetes, thyroid disease..HEMATOLOGY/LYMPHOLO GY: Denies cancer, bleeding or clotting disorders,anemia,and DVT's..ALLERGIC/IMMUNOLOGICA L: Denies risks for infection, or recent MRSAinfections.Surgical Risk Factors:Morbid ObesityNo past medical history on file.No past surgical history on file.No family history on file.Social History Marital status: Spouse name: Years of education: Number of children:Social History Main Topics Drug use: UnknownALLERGIES: MorphineMEDICATIONS:traMADol (ULTRAM) 50 mg tablet TAKE 1 TO 2 TABLETS BY MOUTH 4 TIMES A DAYAS NEEDEDVIMOVO 375-20 mg TbID Take 1 tablet by mouth twice daily before meals.ULORIC 40 mg tab Take 40 mg by mouth once daily.diazePAM (VALIUM) 10 mg tablet TAKE 1 TABLET BY MOUTH 1 HOUR PRIOR TO MRIPHYSICAL EXAM:Ht 175.3 cm (5' 9 ) Wt 122.5 kg (270 lb) BMI 39.87 kg/m?All other systems deferred.GENERAL: Appears healthy, well-nourished, no deformities.HABITUS: ObeseGAIT: Antalgic to the leftKNEE EXAM:Left: Alignment: Neutral Range of motion is 10 degrees in extension and 90 degrees of flexion. Extension Lag: < 10 degrees Pain with ROM: No Effusion: Slight Tender to the palpation of Medial joint line, Lateral jointline and lateral calf Pain with patellar compression: No Stability: Anterior/Posterior stable and Varus/Valgus stable Hip Exam: flexion to 100+ degrees, full extension,internal/external rotation adequate and no pain with log roll Neurovascular Status: Sensation Intact, Moves foot and ankleup AND down and 2+ dorsalis pedisDATA:Diagnostic tests reviewed for today's visit:Most recent labsLeft knee X-Ray: Post-operative XRay: Implants are well aligned.Implants are well fixed.There is no evidence of loosening.The following conditions were addressed during the office visit today:Obesity - Weight management strategies and Chronic narcotic use - Opiatemedication appropriate use counselingSIGNATURE: Hamzah Hemphill DO PATIENT NAME: Rios BartlettDATE: January 28, 2018 : 8:58 AM Normal [facility] Protein mass conc HNO ID: [id number] Author: Hamzah Hemphill Service: (none) Author Type: Physician Type: Progress Notes Filed: 02/07/2018 6:54 PM Note Text: new images Normal [facility] Protein mass conc HNO ID: [id number] thor: Stephanie Adams (Tech): (none)Author Type: TechnicianType: Progress NotesFiled: 01/28/2018 8:24 AMNote Text: Radiology Service Progress NotePATIENT NAME: Rios BartlettMRN: [id number] OF SERVICE: January 28, 2018TIME: 8:24 AMPATIENT IDENTITY VERIFICATION COMPLETED USING TWO (2) METHODS: Patientconfirmed name verbally and Date of .PATIENT GENDER DATA: MalePATIENT RELEVANT IMPLANT DATA REVIEWED: Not ApplicableRADIOLOGY DEPARTMENT: General X-ray: Exam(s) Completed: Lower ExtremityX-Ray(s): Knee, AP / Lat / Tunne / Merchant Left and Wt. Bearing and FLEA(Full Length Lower Extremity):PERIPHERAL IV DATA: Not applicableSIGNED BY: Donita Sethi 2017 8:24 AM Normal [facility] Sed Rate Westergrenon 2017 Sed Rate Westergren 2 mm/hr Normal 0-15 [facility] Comment on above: Performed By: #### W SR, CRP ####[facility] [address] [place], [place] [phone] XR KNEE 4V AP/PA BOTH+LAT/ME R LTon 01-28-2018 XR KNEE 4V AP/PA BOTH+LAT/PUMA LT * * *Final Report* * *DATE OF EXAM: Jan 28 2018 8:22AM CRX [id number] - XR KNEE 4V AP/PA BOTH+LAT/PUMA LT / REASON: Pain in left knee * * * * Physician Interpretation * * * * EXAMINATION: XR KNEE 4V AP/PA BOTH+LAT/PUMA LTHISTORY: Pain in left knee .Patient/Technologist Provided History: PAIN LEFT KNEE AND SHINTECHNIQUE: XR KNEE 4V AP/PA BOTH+LAT/PUMA LT Laterality: LEFT Number of different views (projections): 4COMPARISON: NoneRESULT:Left total knee arthroplasty and patellar resurfacing. No evidence of hardware failure or loosening. No acute fracture or dislocation. Remote posttraumatic deformity of the proximal left fibula.Moderate to severe right medial compartment degenerative changes.No other significant abnormality. -IMPRESSION:Intact left knee arthroplasty.Transcriptionis t: PSCB Transcribe Date/Time: Jan 28 2018 8:33ADictated by : ZACH HANSEN MDThijackie examination was interpreted and the report reviewed and electronically signed by: EDNA KOVACS MD on Jan 28 2018 2:08PM [id number] Normal [facility] XR LEG FRONTL HIP-ANKL [facility] AXISon 01-28-2018 GFR/1.73 sq M predicted among non-blacks MDRD vol rate/area (S/P/Bld) * * *Final Report* * *DATE OF EXAM: Jan 28 2018 8:22AM CRX [id number] - XR LEG FRONTL HIP-ANKL [facility] AXIS / REASON: Pain in left knee * * * * Physician Interpretation * * * * EXAMINATION: X[facility] AXISHISTORY: Pain in left knee .Patient/Technologist Provided History: PAIN LEFT KNEE AND SHINTECHNIQUE: XR LEG FRONTL HIP-ANKL [facility] AXIS Laterality: BILATERAL Number of different views (projections): 1 EACHCOMPARISON: NoneRESULT:Left total knee arthroplasty. No evidence of hardware failure or loosening. Moderate medial femorotibial compartment narrowing and mild lateral femorotibial compartment narrowing. Hip joint spaces appear maintained. Left biomechanical axis is 3 degrees varus and right biomechanical axis is 1 degree valgus.No other significant abnormality. -IMPRESSION:Mechanical axis as described.Senior Hardware Design Engineer: MARCOS Transcribe Date/Time: Jan 28 2018 8:34ADictated by : ZACH HANSEN MDThis examination was interpreted and the report reviewed and electronically signed by: EDNA KOVACS MD on Jan 28 2018 9:48AM [id number] Normal [facility] XR KNEE LEFT STANDARDon 01-26 XR KNEE LEFT STANDARD TECHNIQUE: Left knee series includes standing views of both knees, lateral and sunrise left knee.COMPARISON: 09/02/2013 left knee.HISTORY: Left knee pain, total knee prosthesis.FINDINGS: The left total knee prosthesis including the patellar button remains in anatomic alignment.Severe degenerative change right knee with spurring of the tibial spines and marked medial compartment joint space narrowing. Moderate lateral compartment narrowing right knee. Probably early chondrocalcinosis in the lateral joint compartment of the right knee.IMPRESSION: Anatomically aligned left total knee prosthesis.Prominent osteoarthritic change and early chondrocalcinosis in the opposite right knee.Interpreted by:CHIN Geller Jr.igned by:Miles Mishra Jr., MD02/11/17Final result Normal [facility] Vital Signs Date Time Vital Sign Value Performing Clinician Ko johnson 12-16-2022 13:33-0400 Blood Pressure Location Edna HapBooL [facility] 12-16-2022 13:33-0400 Diastolic blood pressure 66 mm[Hg] Edna NILL [facility] 12-16-2022 13:33-0400 Heart rate 70 /min Edna NILL [facility] 12-16-2022 13:33-0400 Respiratory rate 18 /min Edna HapBooL [facility] 12-16-2022 13:33-0400 Systolic blood pressure 118 mm[Hg] Edna NILL [facility] 02-08-2021 10:49-0400 Body mass index (BMI) [Ratio] 42.33 kg/m2 Mary Kline MD Work Phone: [employer] Work Phone: 02-08-2021 10:49-0400 Body temperature 98.4 [degF] Mary Kline MD Work Phone: [employer] Work Phone: 02-08-2021 10:49-0400 Body weight 133.81 kg Mary Kline MD Work Phone: [employer] Work Phone: 02-08-2021 10:49-0400 Diastolic blood pressure 90 mm[Hg] Mary Kline MD Work Phone: [employer] Work Phone: 02-08-2021 10:49-0400 Heart rate 92 /min Mary Kline MD Work Phone: [employer] Work Phone: 02-08-2021 10:49-0400 Respiratory rate 18 /min Mary Kline MD Work Phone: [employer] Work Phone: 02-08-2021 10:49-0400 SaO2% (BldA) [Mass fraction] 94 % Mary Kline MD Work Phone: [employer] Work Phone: 02-08-2021 10:49-0400 Systolic blood pressure 119 mm[Hg] Mary Kline MD Work Phone: [employer] Work Phone: Encounters Encounter Date Encounter Type Care Provider Facility Start: 12-30-2022 End: 12-31-2022 ambulatory Edna Maher BUDDY Facility: [facility] Start: 12-30-2022 End: 12-30-2022 Patient encounter procedure Edna R NILL General Surgery Nill[facility] Start: 12-16-2022 End: 12-17-2022 ambulatory Edna R BUDDY Facility: [facility] Start: 12-16-2022 End: 12-16-2022 Patient encounter procedure Edna R NILL General Surgery Nill[facility] Start: 11-04-2022 End: 11-05-[address] MARY KLINE . Facility:[facility] Start: 08-10-2022 End: 08-11-[address] MARY KLINE . Facility:[facility] Start: 08-03-2022 End: 08-04-[address] MARY KLINE . Facility:[facility] Start: 07-30-2022 End: 07-31-[address] MARY KLINE . Facility:[facility] Start: 03-27-2022 End: 03-27-2022 ambulatory CHEIKH WALKER [facility] Start: 03-14-2022 Evaluation and management of inpatient AMBROSIO [facility] Start: 03-13-2022 End: 03-14-2022 [facility] Start: 03-13-2022 End: 03-14-2022 [facility] Start: 03-10-2022 End: 03-10-2022 [facility] Start: 01-28-2022 End: 01-29-2022 ambulatory MARY KLINE Facility:[facility] Start: 02-08-2021 Emergency department patient visit MARY M [facility] Start: 02-08-2021 End: 02-08-2021 Emergency department patient visit Mary Kline MD Work Phone: [facility] Comment on above: Acute exacerbation o f chronic low back pain (Primary Dx) Start: 01-28-2018 End: 02-08-2018 Patient encounter HAMZAH HEMPHILL [facility] Start: 02-11-2017 End: 02-12-2017 [facility] Procedures Date Procedure Procedure Detail Performing Clinician Start: 11-04-[address] MARY KLINE . Comment on above: Performed By: #### TSH, T4, FT3, CMP, LI PID #### [facility] [address] [place] [address] Dr. 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 - [employer] ATTENDANT Work Phone: Start: 06-28-2019 Uvulopalatopharyngoplasty Edna GOODWIN Start: 02-11-2017 Radiologic examination knee 3 views OLIVIA POCOS Start: 10-06-2016 L knee synovectomy, poly exchange, quad plasty complicated by obesity Edna GOODWIN ACDF 5-7 Edna GOODWIN Gastric sleeve Edna GOODWIN History of revision of left total knee arthroplasty Edna GOODWIN left knee arthroscopy Michae kale GOODWIN left total knee arthroplasty Edna CALDWELLL Local anesthetic ner ve block in lower limb Edna GOODWIN Comment on above: left knee Lumbar spinal fusion Edna CALDWELLL Nasal septoplasty Edna TERAN Tonsillectomy and adenoidectomy Edna GOODWIN Torsion of testis (disorder) Edna GOODWIN Plan of Treatment Date Care Activity Detail Author Start: 02-26-2021 Influenza vaccination Flu vaccine (# 1) [employer] Phone: Start: 2016 Shingles Vaccine (1 of 2) Shingles Vaccine (1 of 2) [employer] Phone: Start: 09-07-2011 Screening for malign ant neoplasm of colon Colon cancer screen colonoscopy [facility] [employer] Phone: Start: 2006 Lipid panel Lipid screen [facility] Work Phone: Start: 1985 DTaP/Tdap/Td vaccine (1 - Tdap) DTaP/Tdap/Td vaccine (1 - Tdap) [employer] Work Phone: Start: 1981 HIV screening HIV screen [facility] Work Phone: Start: 1966 Hepatitis C screening Hepatitis C sc reen [facility] Work Phone: XR LUMBAR SPINE (2-3 VIEWS) XR LUMBAR SPINE (2-3 VIEWS) Imaging STAT 02/08/2021 12:10 PM EDT [employer] Work Phone: Immunizations Immunization Date Immunization Notes Care Provider Jenniffer lagos NEGATED: Highlighted row has not occurred!08-13-2021 influenza virus vaccine, unspecified formulation Edna GOODWIN General Surgery [employer] Payers Date Payer Category Payer Medicare [id number] 2019 Unknown [id number] 2016 Unknown [id number] 1965 Unknown [id number] 2.16.8 [id number] 1966 Unknown [id number] 2.16.8 [id number] 1966 Unknown [id number] 2.16.84 [id number] 1966 Unknown [id number] 2.16.84 [id number] 1966 Unknown [id number] 2.16.84 [id number] 1966 Unknown [id number] 2.16.84 [id number] 1966 Unknown [id number] 2.16.8 [id number] 1965 Unknown [id number] 2.16.8 [id number] Social History Date Type Detail Facility Start: 02-08-2021 End: 12-16-2022 Tobacco smoking status NHIS Never smoker General Surg mouna [facility] Start: 02-08-2021 Tobacco use and exposure Never used [employer] Start: 1965 Sex Assigned At Not on file [employer] Work Phone: Exposure to SARS-CoV -2 (event) Not sure [employer] Tobacco smoking status Never Gener al [facility] [place] Sex Assigned At Male [facility] Functional Status Date Assessment Result Facility 12-16-2022 Functional Status N/A General [facility] dalia Russ Clinical Notes 03-13-2022 to 12-16-2022 Note Date & Type Note Facility 12-16-2022 Note Chief Complaint consultation for skin tags HPI Staff 57 year old male presents on self referral consultation for skin tags. Reports several year history of multiple skin tags to bilateral neck, bilateral axilla and belt line of abdomen. History of Present Illness 57 yo male referred for multiple skin tags on neck; bilateral axillae, and waist; get irritated at times; no previous removal; no asa or NSAID use. Review of Systems PHQ Score Initial Depression Screen Score: 0 ROS - Provider Constitutional: no fever, no sweats, no weight loss. Eyes: no glasses, no blurred vision, no visual loss. ENMT: no dentures, no hoarseness, no swallowing difficulties, no hearing loss, no ear infection(s), no nose bleeds. Cardiovascular: normal blood pressure, no chest pain, regular heartbeat, no heart murmur. Respiratory: no shortness of breath, no cough, no asthma, no wheezing. Gastrointestinal: no nausea, no vomiting, no diarrhea, no constipation, no blood in stool, no change in bowel habits, no abdominal pain, no hepatitis. Genitourinary: no kidney stones, no urine infection, no dysuria. Musculoskeletal: no pain, no weakness. Skin: no changing moles, no rash, no skin lumps. Neurologic: no seizures, no epilepsy, no headache. Psychiatric: no emotional or psychiatric problem. Heme/Lymph: no bleeding problems, no anemia, no blood clots, no transfusions. Allergy/Immunologic: no swollen lymph nodes/glands, no IV drug abuse. Other: Additional ROS info: Except as noted in the above Review of Systems and in the History of Present Illness, all other systems have been reviewed and are negative or noncontributory. Physical Exam Vitals & Measurements HR: 70(Peripheral) RR: 18 BP: 118/66 HT: 69 in HT: 175.3 cm WT: 136.6 kg WT: 300.52 lb BMI: 44.45 HEENT: normal conjunctiva, sclera clear, no scleral icterus, EOM intact, PERRLA, oral mucosa moist without lesions. Neck: trachea midline, no mass, symmetric, no thyromegaly or nodules, no adenopathy Musculoskeletal: normal gait, digits and nails without infection, nodes, cyanosis, clubbing. Skin: no rashes, no lesions, no ulcers, no subcutaneous nodules, induration. multiple small skin tags bilateral neck, axillae, abd, no ulceration or bleeding. Psychiatric/Neuro: oriented to time, place, person, judgement normal, affect appropriate for age, insight intact, no focal deficits. Tests: review of old records completed, Discussed surgical options, risks, and possible complications with patient. Assessment/Plan 1. Skin tags, multiple acquired (L91.8: Other hypertrophic disorders of the skin) plan excision/cautery under local anesthesia in the office, informed consent obtained. Follow-up No qualifying data available Problem List/Past Medical History Ongoing Anxiety BMI 40.0-44.9, adult Brachial neuritis Cervical spondylosis Claustrophobia Deviated nasal septum Elevated blood pressure reading without diagnosis of hypertension Gout History of nephrolithiasis Hypertrophy of nasal turbinates Lipoma of back Lumbar herniated disc Morbid obesity Neuropathy PATTI (obstructive sleep apnea) Severe major depressive disorder Skin tags, multiple acquired Historical No qualifying data Procedure/Surgical History Exploration (08/27/2021), Uvulopalatopharyngoplasty (2019), L knee synovectomy, poly exchange, quad plasty complicated by obesity (10/06/2016), ACDF 5-7, Gastric sleeve, History of revision of left total knee arthroplasty, LA - Local anesthetic nerve block in lower limb, left knee arthroscopy, left total knee arthroplasty, Lumbar spinal fusion, Nasal septoplasty, Testicular torsion, Tonsillectomy and adenoidectomy. Medications Ozempic 2 mg/3 mL (0.25 mg or 0.5 mg dose) subcutaneous solution, 0.5 mg, SubCutaneous, qWeek Allergies morphine (Itching) Social History Alcohol - Denies Alcohol Use, 09/18/2016 Substance Abuse - Denies Substance Abuse, 09/18/2016 Tobacco - Denies Tobacco Use, 09/18/2016 Never (less than 100 in lifetime) Tobacco Use:. Never Smokeless Tobacco Use:., 12/16/2022 Family History Cardiac arrest: Father. Hypertension: Brother. Primary malignant neoplasm of lung: Mother. Stroke: Mother. Immunizations Vaccine Date Status Comments influenza virus vaccine, inactivated - Not Given Patient Refuses [facility] Comment on above: Result Comment: Elec tronically Signed By: BUDDY TRAN, Edna Castellanos\Date and Time Signed: 12/16/22 20:50 EDT 03-27-2022 Note Orthopedic Surgery First postoperative follow up after L4-5 decompression and fusion for disc degeneration and spinal stenosis 03/13/22 Residual radicular pain both lower extremities, LBP improving Patient History Past Surgical History: Procedure Laterality Date ADENOIDECTOMY 2020 CERVICAL SPINE SURGERY 2009 KNEE ARTHROPLASTY Left 2014 LEFT KNEE REPLACEMENT KNEE ARTHROSCOPY W/ MENISCECTOMY Left 2012 KNEE SURGERY Right 1998 KNEE SCOPE KNEE SURGERY Right 1999 SCREWS AND PLATE KNEE SURGERY Left 2017 KNEE SURGERY Left 2017 LEFT KNEE REVISION LIPOMA RESECTION 08/2021 BACK MENISCECTOMY Right 1985 TESTICLE SURGERY 1986 TONSILLECTOMY 2019 UVULOPALATOPHARYNGOPLASTY 2019 Past Medical History: Diagnosis Date DDD (degenerative disc disease), lumbar 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 No drainage or erythema - Limited lumbar spine post-surgical ROM, no swelling, and no tenderness - Sensation grossly intact distally - Motor 5/5 all tyson muscle groups -X ray good alignment of the spine, hardware in good position Assessment/Plan Rios Bartlett is a 56 y.o. year old male s/p L4-l5 Decompression With Interbody Fusion - Left (03/13/2022) Recommend Avoid heavy lifting, increase activities as tolerated Follow up in 4 weeks [facility] 03-14-2022 Note Orthopaedic Discharg e Summary Patient ID: Rios Bartlett [id number] 56 y.o. 1965 Admit date: 03/13/2022 Discharge date and time: 03/14/2022 4:32 PM Admitting Physician: Cheikh Walker MD Discharge Physician: Cheikh Walker MD Admission Diagnoses: Intervertebral disc disorders with radiculopathy, lumbar region [M51.16] Discharge Diagnoses: Intervertebral disc disorders with radiculopathy, lumbar region [M51.16] Surgical procedure: * L4-L5 DECOMPRESSION WITH INTERBODY FUSION Disposition: Home Medications: Your medication list START taking these medications Instructions Last Dose Given Next Dose Due acetaminophen 500 mg tablet Commonly known as: Tylenol Take 2 tablets (1,000 mg) by mouth every 8 (eight) hours. acetaminophen 500 mg tablet Commonly known as: Tylenol Take 1 tablet (500 mg) by mouth every 4 (four) hours. cephalexin 500 mg capsule Commonly known as: Keflex Take 1 capsule (500 mg) by mouth in the morning, at noon, in the evening, and at bedtime for 5 days. cholecalciferol 50 MCG (2000 UT) tablet Commonly known as: Vitamin D-3 Take 2,000 Units by mouth in the morning. docusate sodium 100 mg capsule Commonly known as: Colace Take 1 capsule (100 mg) by mouth in the morning and at bedtime for 196 doses. docusate sodium 100 mg tablet Commonly known as: Colace Take 1 tablet (100 mg) by mouth if needed in the morning and at bedtime for constipation. ergocalciferol 1.25 MG (95784 UT) capsule Commonly known as: Vitamin D-2 Take 1 capsule (1.25 mg) by mouth 1 (one) time per week for 8 doses. methocarbamol 750 mg tablet Commonly known as: Robaxin Take 1 tablet (750 mg) by mouth if needed in the morning, at noon, in the evening, and at bedtime for muscle spasms. ondansetron ODT 4 mg disintegrating tablet Commonly known as: Zofran-ODT Take 1 tablet (4 mg) by mouth every 8 (eight) hours if needed for nausea or vomiting. oxyCODONE 5 mg immediate release capsule Commonly known as: Oxy-IR Take 1 capsule (5 mg) by mouth every 6 (six) hours if needed for severe pain (8-10 pain score) for up to 7 days. STOP taking these medications ibuprofen 600 mg tablet Where to Get Your Medications These medications were sent to [id number] - [place], [place] - [address] [facility] [address] [facility] [id number] acetaminophen 500 mg tablet acetaminophen 500 mg tablet cephalexin 500 mg capsule cholecalciferol 50 MCG (2000 UT) tablet docusate sodium 100 mg capsule docusate sodium 100 mg tablet ergocalciferol 1.25 MG (60352 UT) capsule methocarbamol 750 mg tablet ondansetron ODT 4 mg disintegrating tablet You can get these medications from any pharmacy Bring a paper prescription for each of these medications oxyCODONE 5 mg immediate release capsule Patient Instructions: Weightbearing: Right lower extremity Weightbearing as tolerated Left lower extremity Weightbearing as tolerated Dressing Care: Leave dressing intact, may shower with dressing if intact. If significantly soiled or bloody, remove and replace with clean and dry dressing. If there is any question, cover dressing by taping plastic wrap over incision while showering and then remove the plastic wrap when finished. If the incision gets wet inadvertantly, pat dry with a dry dressing and replace new, clean dressing. Follow-up visit: Follow-up with Ambrosio Liang MD in 10-14 days at [facility] [phone] Hospital Course: Rios Bartlett was admitted on 03/13/2022 and underwent the aforementioned procedure. Post-operatively, he had adequate pain control and physical therapy to be able to be discharged from the hospital. DVT prophylaxis consisted of Lovenox only while admitted and none on discharge . Signed: Ambrosio Liang MD 3:48 PM 04/02/2022 [facility] 03-14-2022 Note This report has been cancelled. [facility] 03-14-2022 Note Pt to discharge home with a rolling walker script. [facility] 03-14-2022 Note Physical Therapy Physical Therapy Treatment Patient Name: Rios Bartlett Today's Date: 03/14/2022 General Subjective: Pt adm following scheduled L4/L5 fusion with a pertinent PMF of L TKA with less than 90 deg flexion. Patient Active Problem List Diagnosis Ankylosis of joint GERD (gastroesophageal reflux disease) Hearing loss History of surgical procedure Low back pain Lumbosacral radiculopathy Obstructive sleep apnea syndrome Other chronic pain Other intervertebral disc displacement, lumbar region Pain in left lower leg Presence of left artificial knee joint Intervertebral disc disorders with radiculopathy, lumbar region Pain Pain Assessment Pain Assessment: No/denies pain Objective General Visit Information: PT Last Visit PT Received On: 03/14/22 General Subjective: Pt adm following scheduled L4/L5 fusion with a pertinent PMF of L TKA with less than 90 deg flexion. General Assessments: Activity Tolerance Ambulation comments: Pt ambulates in room and outside to stairs approx 20 ft with minimal flexed posture with RW with shortened step length B. Endurance: Stage IV Treatment: Ambulation Ambulation: Yes Ambulation 1 Surface 1: Level tile Device 1: Rolling walker Assistance 1: Contact guard, Close supervision Quality of Gait 1: Min flexed gait, shortened step lenth B. Comments/Distance (ft) 1: 40 Stairs Stairs: Yes Stairs Rails 1: Left Device 1: No device Assistance 1: Contact guard Quality of Stairs 1: Slowed gait with step to pattern to avoid L knee flexion throughout stair negotiation Comment/Number of Steps 1: 4 (ascend/descend) Bed Mobility Bed Mobility: Yes Bed Mobility 1 Bed Mobility From 1: Supine Bed Mobility Type 1: To Bed Mobility to 1: Short sit Level of Assistance 1: Close supervision (Curing for log roll, which he was able to demo good performance with.) Bed Mobility 2 Bed Mobility From 2: Short sit Bed Mobility Type 2: To Bed Mobility to 2: Supine Level of Assistance 2: Close supervision Bed Mobility Comments 2: Cuing for log roll with poor performance without twisting. verbally reviewed following the transfer to maximize carryover Treatment Comments: Pt tolerated session well without any adverse response. Outcome Assessments 6 Clicks (Mobility) Impairment Codes: Fracture/Other ortho Help from another person turning from your back to your side while in a flat bed without using bedrails: None Help from another person moving from lying on your back to sitting on the side of a flat bed without using bedrails: None Help from another person moving to and from a bed to a chair (including a wheelchair): A little Help from another person standing up from a chair using your arms (e.g. wheelchair or bedside chair): A little Help from another person to walk in hospital room: A little Help from another person climbing 3-5 steps with a railing: A little Mobility 6 Clicks T-Score: 20 Assessment/Plan PT Assessment Prognosis: Excellent Evaluation/Treatment Tolerance: Patient tolerated treatment well Medical Staff Made Aware: Yes PT Education/Comments: Pt educated on log roll use, reviewed precautions for lumbar fusion, reviewed the RW DME ordered and how to fit for use, also educated pt and that the lumbar corset should be delivered soon and to ensure the fit is proper. Plan Level of assist: 1 assist Treatment/Interventions: Functional transfer training, LE strengthening/ROM, Patient/family training, Bed mobility, Gait training, Balance training, Endurance training, ADL retraining, Compensatory technique education PT Plan: Skilled PT PT Frequency: 1 time per day until discharge & PRN PT Discharge Recommendations: Home independent Equipment Recommended: rolling walker PT - OK to Discharge: Yes Goals: Multi-Disciplinary Problems (from Physical Therapy) Active Problems Problem: Mobility Start Date: 03/14/22 Goal Start Date Expected End Date End Date Pt will demo good understanding of lumbar precautions throughout all sessions to maximize rehab potential and allow for adequate healing of fusion 03/14/22 03/28/22 -- Goal Start Date Expected End Date End Date Pt will present with the ability to perform 5 supine <-> sit transfers with proper log roll mechanics to inc independence and safety with bed mobility 03/14/22 03/28/22 -- Goal Start Date Expected End Date End Date Pt will present with the ability to ambulate 500 ft with RW with upright posture to inc independence with household and community ambulation 03/14/22 03/28/22 -- Goal Start Date Expected End Date End Date Pt will present with the ability to negotiate 4 edil independently to inc safety with stair negotiation at home 03/14/22 03/28/22 -- [facility] 03-14-2022 Note Occupational Therapy Occupational Therapy Evaluation Patient Name: Rios Bartlett Today's Date: 03/14/2022 11:24---11:54 General Subjective: Pt is a 56 yr old with a past medical history of DDD (degenerative disc disease), and Lumbar radiculopathy. MRI indicated L4-L5 DD/stenosis; Pt underwent L4-L5 decompression with fusion on 03-13-22 Family/Caregiver Present: Yes (son and ) Patient Active Problem List Diagnosis Ankylosis of joint GERD (gastroesophageal reflux disease) Hearing loss History of surgical procedure Low back pain Lumbosacral radiculopathy Obstructive sleep apnea syndrome Other chronic pain Other intervertebral disc displacement, lumbar region Pain in left lower leg Presence of left artificial knee joint Intervertebral disc disorders with radiculopathy, lumbar region Past Medical History: Diagnosis Date DDD (degenerative disc disease), lumbar 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 (CMS/[facility]) 2020 WITH ANESTHESIA Lumbar radiculopathy Past Surgical History: Procedure Laterality Date ADENOIDECTOMY 2020 CERVICAL SPINE SURGERY 2009 KNEE ARTHROPLASTY Left 2014 LEFT KNEE REPLACEMENT KNEE ARTHROSCOPY W/ MENISCECTOMY Left 2013 KNEE SURGERY Right 1998 KNEE SCOPE KNEE SURGERY Right 1999 SCREWS AND PLATE KNEE SURGERY Left 2018 KNEE SURGERY Left 2017 LEFT KNEE REVISION LIPOMA RESECTION 08/2021 BACK MENISCECTOMY Right 1985 TESTICLE SURGERY 1986 TONSILLECTOMY 2019 UVULOPALATOPHARYNGOPLASTY 2019 Pain Pain Assessment Pain Score: 4 Home Living Home Living Type of Home: House Lives With: Spouse, Family (HEATHER lives with him (dementia) and Aunt who is caregiver to HEATHER) Home Adaptive Equipment: Cane (use scooter if available in community) Home Layout: One level Home Access: Stairs to enter with rails Entrance Stairs-Rails: Both Entrance Stairs-Number of Steps: 4 Bathroom Shower/Tub: Tub/shower unit Bathroom Toilet: Standard Bathroom Equipment: Grab bars in shower (suction grab bar---can borrow extended tub bench) Prior Level of Function Prior Function Level of [place]: Independent with ADLs and functional transfers Vocational: On disability Static Sitting Balance Static Sitting Balance Static Sitting-Level of Assistance: Independent Dynamic Sitting Balance Dynamic Sitting Balance Dynamic Sitting Balance-Level of Assistance: Independent Static Standing Balance Static Standing Balance Static Standing-Level of Assistance: Independent Dynamic Standing Balance Dynamic Standing Balance Dynamic Standing Balance-Level of Assistance: Distant supervision Bed Mobility Bed Mobility Bed Mobility: Yes Bed Mobility 1 Bed Mobility From 1: Side lying-left Bed Mobility Type 1: To Bed Mobility to 1: Short sit Level of Assistance 1: Directs care (Comment) (follow log roll guidelines) Transfers Transfers Transfer: Yes Transfer 1 Transfer From 1: Bed Transfer Type 1: To Transfer to 1: Stand Technique 1: Sit to stand Transfer Device 1: rolling walker Transfer Level of Assistance 1: Close supervision Objective General Visit Information: General Subjective: Pt is a 56 yr old with a past medical history of DDD (degenerative disc disease), and Lumbar radiculopathy. MRI indicated L4-L5 DD/stenosis; Pt underwent L4-L5 decompression with fusion on 03-13-22 Family/Caregiver Present: Yes (son and ) Precautions Precautions UE Weight Bearing Status: (no restrictions) Medical Precautions: log roll, fall risk, no bending lifting or twisting (lumbar corset has been ordered) Cognition Prior IADLs IADL History Homemaking Responsibilities: No Current License: Yes Mode of Transportation: Car General Assessments ADL Eating Assistance: Independent Grooming Assistance: Independent Bathing Assistance: Minimal Bathing Deficit: (to move L LE over edge of tub) UE Dressing Assistance: Independent LE Dressing Assistance: Minimal LE Dressing Deficit: Tie shoes, Don/doff R sock, Don/doff L sock, Don/doff R shoe, Don/doff L shoe (Pt's is present to assist with LB dressing since pt has BLT restrictions) Toileting Deficit: Grab bar use ADL Comments: stand to sit for toiler is challenging to pt d/t pt's premorbid limited L knee ROM Extremity Assessments RUE Assessment RUE Assessment: Within Functional Limits Outcome Assessments AM-PAC 6 Clicks Putting on and taking off regular lower body clothing?: A Little (Min Assist/Contact Guard/Supervision) Bathing(Including washing,rinsing,drying)?: A Little (Min Assist/Contact Guard/Supervision) Toileting, which includes using the toilet,bedpan,or urinal?: A Little (Min Assist/Contact Guard/Supervision) Putting on and taking off regular upper body clothing?: None (Independent) Taking care of personal grooming such as brushing teeth?: None (Independent) Eating meals?: None (Independent) Total Score OT [facility]: 21 ---- (more content not included)... [facility] 03-14-2022 Note Orthopedic Progress Note Status post Procedure(s) with comments: L4-L5 DECOMPRESSION WITH INTERBODY FUSION (Left) - C-ARM, SYNTHES, KAMALJIT TABLE, SSEP#[id number], REPS NOTIFIED RP. SUBJECTIVE: Patient seen and examined at the bedside. No acute overnight events. States he has been able to get better rest overnight, has not yet worked with therapy, pain controlled only 5/10 at the moment, patient tolerating some oral intake OBJECTIVE BP 115/62 Pulse 78 Temp 36.6 ???C (97.8 ???F) Resp 18 Ht 1.753 m (5' 9 ) Wt (!) 147 kg (323 lb 6.6 oz) SpO2 94% BMI 47.76 kg/m??? General: A/O x3, resting comfortably in bed, cooperative MSK: BLE - Incision covered by Mepilex dressing, drain with < 50 ml out since surgery - SILT in superficial peroneal, deep peroneal, sural, saph nerve dist - Motor function intact in tibial, deep peroneal, superficial peroneal dist - 2+ DP pulses ASSESSMENT: This is a 56 y.o. male s/p L4-L5 decompression and fusion (DOS: 03/13/22) PLAN -AAT -Postoperative XR will be reviewed -Pain control and ice prn -Vitamin D supplementation -Removal of Duarte today -Antibiotics: Will complete postop abx today and discharge with 5 day course -Wound care: Drain removed today. Dressing may remain in place until seen in clinic for postoperative appointment -PT/OT, encouraged to get out of bed and ambulate -DVT ppx/Anticoagulation: Lovenox while admitted, does not need on discharge -Plan discharge for 03/14 to home with follow up in office scheduled for 10-14 days from the date of surgery Ambrosio Liang MD Orthopaedic Surgery Resident, PGY-IV Personal pager: [phone] 03/14/2022 [facility] 03-13-2022 Note Patient: Rios holloway Procedure Summary Date: 03/13/22 Room / Location: [facility] OPERATING ROOM 12 / [facility] Operating Room Anesthesia Start: 734 Anesthesia Stop: 1106 Procedure: L4-L5 DECOMPRESSION WITH INTERBODY FUSION (Left: Spine Lumbar) Diagnosis: (Degeneration of lumbar intervertebral disc) Surgeons: Cheikh Walker MD Responsible Provider: Sara Felder MD Anesthesia Type: general ASA Status: 3 Anesthesia Type: general Vitals Value Taken Time BP 150/80 03/13/22 1106 Temp 36.3 ???C (97.3 ???F) 03/13/22 1106 Pulse 86 03/13/22 1107 Resp 18 03/13/22 1106 SpO2 92 % 03/13/22 1107 Vitals shown include unvalidated device data. Anesthesia Post Evaluation Patient location during evaluation: PACU Patient participation: complete - patient participated Level of consciousness: sleepy but conscious and awake Pain score: 1 Pain management: satisfactory to patient Multimodal analgesia pain management approach Airway patency: patent Two or more strategies used to mitigate risk of obstructive sleep apnea Cardiovascular status: acceptable Respiratory status: acceptable Hydration status: acceptable No notable events documented. [facility] 03-13-2022 Note Airway Date/Time: 03/13/2022 7:43 AM Urgency: elective Airway not difficult (done by medical student lawrence aguirre MS3) General Information and Staff Patient location during procedure: OR Anesthesiologist: Sara Felder MD Resident/POLISH COMPOUNDER/CAA: KRYSTAL Thompson Performed: other anesthesia staff Indications and Patient Condition Indications for airway management: anesthesia Spontaneous Ventilation: absent Sedation level: deep Preoxygenated: yes Mask difficulty assessment: 3 - difficult mask (inadequate, unstable or two providers) +/- NMBA Final Airway Details Final airway type: endotracheal airway Successful airway: ETT Cuffed: yes Successful intubation technique: video laryngoscopy Endotracheal tube insertion site: oral Blade: Elliott Blade size: #4 ETT size (mm): 8.0 Cormack-Lehane Classification: grade I - full view of glottis Placement verified by: chest auscultation and capnometry Measured from: lips ETT to lips (cm): 23 Number of attempts at approach: 1 Number of other approaches attempted: 0 Additional Comments Big neck.2 hand BMV with oral airway [facility] 03-13-2022 Note Patient: Rios holloway Procedure Information Date/Time: 03/13/22729 Procedure: L4-L5 DECOMPRESSION WITH INTERBODY FUSION (Spine Lumbar) - C-ARM, SYNTHES, KAMALJIT TABLE, SSEP#[id number], REPS NOTIFIED RP. Location: [facility] OPERATING ROOM 12 / [facility] Operating Room Surgeons: Cheikh Walker MD Relevant Problems No relevant active problems Clinical information reviewed: Tobacco Allergies Meds Med Hx Surg Hx Fam Hx Soc Hx Physical Exam Airway Mallampati: III TM distance: >3 FB Neck ROM: full Cardiovascular Rhythm: regular Rate: normal Dental - normal exam Pulmonary Breath sounds clear to auscultation Abdominal Anesthesia Plan ASA 3 general The patient is not a current smoker. Patient was not previously instructed to abstain from smoking on day of procedure. Patient did not smoke on day of procedure. intravenous induction Postoperative administration of opioids is intended. Anesthetic plan and risks discussed with patient. Use of blood products discussed with patient who consented to blood products. Additional Equipment Requests [facility] Evaluation + Plan note Future Appointments Appointment Date:12/30/2022 02:40:00 PM Scheduled Provider:Edna GOODWIN MD Location:[facility] Appointment Type: Procedure 30 General Surgery OfficeDrop Evaluation note Diagnosis Acute exacerbation of chronic low back pain- Primary documented in this encounter [employer] Phone: Hospital course Narrative No data available for this section General Surgery [facility] Hospital Discharge instructions* Attachments The following attachments cannot be sent through Care Everywhere. * Low Back Pain: Exercises (Eritrean) * Back Pain (Eritrean) 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 ACP-Advance Directive ACP-Power of Vegetable Farmer Additional Source Comments (unrecognized sect ion and content) No Status Records FoundNo Status Records FoundNo Status Records FoundNo Status Records FoundNo Status Records FoundNo Status Records FoundNo Status Records FoundNo Status Records Found INFORMATION SOURCE (unrecogn ized section and content) DATE CREATED AUTHOR 12/22/2017 Elle fernando DATE CREATED AUTHOR AUTHOR'S ORGANIZ ATION 02/09/2018 [facility] DATE CREATED AUTHOR AUTHOR'S ORGANIZ ATION 02/09/2021 Elle ann DATE CREATED AUTHOR AUTHOR'S ORGANIZ ATION 12/05/2021 [facility] DATE CREATED AUTHOR AUTHOR'S ORGANIZ ATION 03/05/2022 [facility] DATE CREATED AUTHOR AUTHOR'S ORGANIZ ATION 05/08/2022 [facility] DATE CREATED AUTHOR AUTHOR'S ORGANIZ ATION 11/08/2022 [facility] DATE CREATED AUTHOR AUTHOR'S ORGANIZ ATION 06/26/2023 [place] Reason for Visit (unrecogniz ed section and content) Reason Comments Back Pain pt states he has chr onic low back pain, states the pain has gotten worse in the past 2 days with some increased activity. Pt states he has an appointment with his ortho Dr, in [place] on 02/21 Ordered Prescriptions (unrec ognized section and content) Prescription Sig Dispensed Refills Start Date End Da te HYDROcodone-acetaminophe n (NORCO) 5-325 MG per tabletIndications:Acute exacerbation of chronic low back pain Take 1 tablet by mouth every 6 hours as needed for Pain for up to 3 days. Intended supply: 3 days. Take lowest dose possible to manage pain 12 tablet 0 02/08/2021 02/11/2021 baclofen (LIORESAL) 10 MG tablet Take 1 tablet by mouth 3 times daily as needed (muscle spasm) 12 tablet 0 02/08/2021 02/12/2021 Scheduled Active and Recently Administ ered Medications (unrecognized section and content) Medication Order 02/06/2021 02/07/2021 02/08/2021 HYDROcodone-acetaminophen (NORCO) 5-325 MG per tablet 2 tablet 2 tablet, Oral, ONCE, On 02/08/21 at 1200, For 1 dose, Maximum dose of acetaminophen is 4000 mg from all sources in 24 hours. 1231 (Not Given - Pr ovider: Janet Hermosillo, RN - Reason: Other - Comment: SENT HOME WITH PATIENT, HE HAS NO RIDE) methylPREDNISolone sodium (SOLU-MEDROL) injection 60 mg (COMPLETED) 60 mg, Intramuscular, ONCE, On 02/08/21 at 1300, For 1 dose 1300 (Given - Provid er: Janet Hermosillo, RN) orphenadrine (NORFLEX) injection 60 mg 60 mg, Intramuscular, ONCE, On 02/08/21 at 1200, For 1 dose 1238 (Not Given - Pr ovider: Jnaet eHrmosillo, RN - Reason: Patient/family refused - Comment: pt has no ride home) Patient Care team informatio n (unrecognized section and content) Personnel Name: Mary Kline MD Address: Address: [address] [place] [address] Personnel Name: Mary Kline MD Address: Address: [address] [place] [address] FOR RECORDS PERTAINING TO PATIENTS WHO ARE OR HAVE BEEN ENROLLED IN A CHEMICAL DEPENDENCY/SUBSTANCEABUSE PROGRAM, SOME INFORMATION MAY BE OMITTED. This clinical summary was aggregated from multiple sources. Caution should be exercised in using it in the provision of clinical care. This summary normalizes information from multiple sources, and as a consequence, information in this document may materially change the coding, format and clinical context of patient data. In addition, data may be omitted in some cases. CLINICAL DECISIONS SHOULD BE BASED ON THE PRIMARY CLINICAL RECORDS. [email or web address]. provides no warranty or guarantee of the accuracy or completeness of information in this document.
[2023-07-06 11:07] LABS: Adenovirus NOT DETECTED (NOT DETECTE); Bordetella parapertussis NOT DETECTED (NOT DETECTE); Coronavirus 229E NOT DETECTED (NOT DETECTE); Coronavirus HKU1 NOT DETECTED (NOT DETECTE); Coronavirus NL63 NOT DETECTED (NOT DETECTE); Coronavirus OC43 NOT DETECTED (NOT DETECTE); Human Metapneumovirus NOT DETECTED (NOT DETECTE); Human Rhinovirus/Enterovirus NOT DETECTED (NOT DETECTE); Influenza A NOT DETECTED (NOT DETECTE); Influenza B NOT DETECTED (NOT DETECTE); Mycoplasma pneumoniae NOT DETECTED (NOT DETECTE); Parainfluenza Virus 1 NOT DETECTED (NOT DETECTE); Parainfluenza Virus 2 NOT DETECTED (NOT DETECTE); Parainfluenza Virus 3 NOT DETECTED (NOT DETECTE); Parainfluenza Virus 4 NOT DETECTED (NOT DETECTE); Respiratory Syncytial Virus NOT DETECTED (NOT DETECTE); SARS-CoV-2 NOT DETECTED (NOT DETECTE)
--- NOTE | 2023-07-06 11:08 | XR_ITS ---
The [address] [address] Patient Name: SHAKILA LOPEZ MRN: [id number] date: 1965 Sex: M Assigned Patient Location: LAB Current Patient Location: LAB Accession/Order Number: [id number] Exam Date: 07/06/2023 11:15 Report Date: 07/06/2023 11:32 At the request of: MARY CORONADO Procedure: XR chest 2V EXAM: XR chest 2V HISTORY: Cough R05.9, Nasal Congestion R09.81 COMPARISON: None. TECHNIQUE: PA and lateral views of the chest. FINDINGS: The cardiomediastinal silhouette is normal. No focal consolidation is identified. There is no pneumothorax. No pleural effusion is noted. The osseous structures are intact. XR/XR chest 2V IMPRESSION: No acute cardiopulmonary process. Electronically authenticated by: LINDA HUNTER Date: 07/06/2023 11:32
== END 2023-07-06 10:58 | disposition home or self-care (01) ==
LOC: LAB 10:57
PROVIDERS: PCP Family Medicine; Visit Provider Family Medicine
DX: R05.9 Cough, unspecified (principal); R09.81 Nasal congestion
CPT/HCPCS: 0202U; 71046

== ENCOUNTER 2024-05-12 12:09 | Outpatient (OUT) | payer OTHER, SELFPAY ==
--- OUTSIDE RECORDS SUMMARY | 2024-05-12 12:32 | XMS_ITS | CCD ---
Author Organization [facility] Care Team Providers Care Senior Inspector Name Role Phone OLIVIA ZAMAN Unavailable Unavailable MARY KLINE Unavailable Unavailable OLIVIA ZAMAN Unavailable Unavailable HOYBILLMARY M Unavailable Unavailable HEMPHILL, HAMZAH P Unavailable Unavailable HEMPHILL, HAMZAH P Unavailable Unavailable HOY MARY M Unavailable Unavailable HEMPHILL, HAMZAH P Unavailable Unavailable Mary Kline MD Primary Care Provider [phone] MARY KLINE Primary Care Unavailable MARY KLINE Primary Care Unavailable MARY KLINE Referring Unavailable ELGAFY, CHEIKH K Admitting Unavailable ELGAFY, CHEIKH K Attending Unavailable ELGAFY CHEIKH Attending Unavailable AMBROSIO LIANG Referring Unavailable ELGAFY, CHEIKH Referring Unavailable ELGAFY, CHEIKH Admitting Unavailable ELGAFIndio, CHEIKH Attending Unavailable IVONNE ., DR HERNANDEZ Admitting Unavailable HOY ., DR HERNANDEZ Attending Unavailable IVONNE ., DR HERNANDEZ Primary Care Unavailable IVONNE ., DR HERNANDEZ Consulting Unavailable LEYDIY ., DR HERNANDEZ Admitting Unavailable HOY ., DR HERNANDEZ Attending Unavailable LEYDIY ., DR HERNANDEZ Primary Care Unavailable LEYDIY ., DR HERNANDEZ Consulting Unavailable OLIVIA BECKER Consulting Unavailable IVONNE .DR HERNANDEZ Admitting Unavailable IVONNE ., DR HERNANDEZ Attending Unavailable IVONNE .DR HERNANDEZ Primary Care Unavailable IVONNE ., DR HERNANDEZ Consulting Unavailable IVONNE ., DR HERNANDEZ Admitting Unavailable LEYDIY ., DR HERNANDEZ Attending Unavailable LEYDIY ., DR HERNANDEZ Primary Care Unavailable IVONNE Almanzar, DR HERNANDEZ Consulting Unavailable Mary Kline Primary Care Physician Edna GOODWIN Attending Unavailable Edna GOODWIN Attending Unavailable Allergies Allergy Classification Reported Allergen(s) Allergy Type Date of Onset Reaction(s) Facility Opioid Agonists (1 source) Morphine Drug Allergy 02-23-2018 [facility] (6 sources) morphine; Translations: [MORPHINE] Drug Allergy 01-28-2018 [facility], Itching [facility] Repository Medications Current Medications Medication [...] Range Facility Physician Referralon 023 Physician Referral [id number] Normal [facility] RAD - CT Reporton 06-25-2023 RAD - CT Report [id number] Normal [facility] Ambulatory Visit Summaryon 0 12-30-2022 Ambulatory Visit [...] major depressive disorder Skin tags, multiple acquired Normal [facility] General Surgery Office/Clini c Noteon 12-30-2022 [...] inactivated - Not Given Patient Refuses Normal [facility] Comment on above: Result Comment: Elec tronically Signed By: BUDDY TRAN, Edna Maher\.br\Date and Time Signed: 12/30/22 15:11 EDT Pre-Certification Formon Pre-Certification Form [id number] Normal [facility] Ambulatory Visit Summaryon 0 12-16-2022 Ambulatory Visit [...] TRAN, Edna Maher Where: General Surgery Nill/Said [place] Normal [facility] CBC AUTO DIFFon 11-04-2022 BASO # 0.0 103/ul Normal 0.0-0.1 [facility] Comment on above: Performed By: #### T SH, T4, FT3, CMP, LIPID #### [facility] [address] [address] [address] Ayush Rice Basophils/100 WBC (Bld) 0.3 % Normal 0.2-2.0 [facility] Comment on above: Performed By: #### T SH, T4, FT3, CMP, LIPID #### [facility] [address] [address] [address] Ayush Rice EO # 0.2 103/ul Normal 0.0-0.7 [facility] Comment on above: Performed By: #### T SH, T4, FT3, CMP, LIPID #### [facility] [address] [address] [address] Ayush Rice Eosinophils/100 WBC (Bld) 1.5 % Normal 0.9-7.0 [facility] Comment on above: Performed By: #### T SH, T4, FT3, CMP, LIPID #### [facility] [address] [address] [address] Ayush Rice Erythrocyte distribution width (RBC) [Ratio] 14.2 % Normal 11.0-15.0 [facility] Comment on above: Performed By: #### T SH, T4, FT3, CMP, LIPID #### [facility] [address] [place] [address] Dr. Ayush Rice Hematocrit (Bld) [Volume fraction] 49.3 % Normal 42.0-54.0 [facility] Comment on above: Performed By: #### T SH, T4, FT3, CMP, LIPID #### [facility] [address] [place] [address] Dr. Ayush Rice Hemoglobin (Bld) [Mass/Vol] 16.2 g/dL Normal 14.0-18.0 [facility] Comment on above: Performed By: #### T SH, T4, FT3, CMP, LIPID #### [facility] [address] [place] [address] Dr. Ayush Rice IG # 0.03 10e3/ul Normal 0.00-0.03 [facility] Comment on above: Performed By: #### T SH, T4, FT3, CMP, LIPID #### [facility] [address] [place] [address] Dr. Ayush Rice IG % 0.3 % Normal 0.0-0.5 [facility] Comment on above: Performed By: #### T SH, T4, FT3, CMP, LIPID #### [facility] [address] [place] [address] Dr. Ayush Rice LYMPH # 2.6 103/ul Normal 1.2-3.8 [facility] Comment on above: Performed By: #### T SH, T4, FT3, CMP, LIPID #### [facility] [address] [place] [address] Dr. Ayush Rice Lymphocytes/100 WBC (Bld) 24.9 % Normal 20.5-60.0 [facility] Comment on above: Performed By: #### T SH, T4, FT3, CMP, LIPID #### [facility] [address] [place] [address] Dr. Ayush Rice MANUAL DIFF REQ NO Normal [facility] Comment on above: Performed By: #### T SH, T4, FT3, CMP, LIPID #### [facility] [address] [place] [address] Dr. Ayush Rice MCH (RBC) [Entitic mass] 30.1 pg Normal 25.9-34.0 [facility] Comment on above: Performed By: #### T SH, T4, FT3, CMP, LIPID #### [facility] [address] [place] [address] Dr. Ayush Rice MCHC (RBC) [Mass/Vol] 32.9 g/dL Normal 29.9-35.2 [facility] Comment on above: Performed By: #### T SH, T4, FT3, CMP, LIPID #### [facility] [address] [place] [address] Dr. Ayush Rice MCV (RBC) [Entitic vol] 91.5 fL Normal 80.0-94.0 [facility] Comment on above: Performed By: #### T SH, T4, FT3, CMP, LIPID #### [facility] [address] [place] [address] Dr. Ayush Rice MONO # 0.8 103/ul Normal 0.3-0.8 [facility] Comment on above: Performed By: #### T SH, T4, FT3, CMP, LIPID #### [facility] [address] [place] [address] Dr. Ayush Rice Monocytes/100 WBC (Bld) 7.4 % Normal 1.7-12.0 [facility] Comment on above: Performed By: #### T SH, T4, FT3, CMP, LIPID #### [facility] [address] [place] [address] Dr. Ayush Rice NEUT # 7.0 103/ul Critically high 1.4-6.5 [facility] Comment on above: Performed By: #### T SH, T4, FT3, CMP, LIPID #### [facility] [address] [place] [address] Dr. Ayush Rice Neutrophils/100 WBC (Bld) 65.6 % Normal 43.0-75.0 [facility] Comment on above: Performed By: #### T SH, T4, FT3, CMP, LIPID #### [facility] [address] [address] [address] Ayush Rice Platelet mean volume (Bld) [Entitic vol] 8.5 fL Critically low 9.5-13.5 [facility] Comment on above: Performed By: #### T SH, T4, FT3, CMP, LIPID #### [facility] [address] [address] [address] Ayush Rice PLT 232 103/ul Normal 150-450 [facility] Comment on above: Performed By: #### T SH, T4, FT3, CMP, LIPID #### [facility] [address] [place] [address] Dr. Ayush Rice RBC 5.39 106/ul Normal 4.70-6.10 [facility] Comment on above: Performed By: #### T SH, T4, FT3, CMP, LIPID #### [facility] [address] [place] [address] Dr. Ayush Rice WBC 10.6 103/ul Normal 4.0-11.0 [facility] Comment on above: Performed By: #### T SH, T4, FT3, CMP, LIPID #### [facility] [address] [place] [address] Dr. Ayush Rice FREE T3on 11-04-2022 FREE T3 2.93 pg/mlL Normal 2.18-3.98 [facility] Comment on above: Performed By: #### T SH, T4, FT3, CMP, LIPID #### [facility] [address] [place] [address] Dr. Ayush Rice GLYCOHEMOGLOBIN A1Con 2022 ADA RECOMMENDATION SEE BELOW Normal [facility] Comment on above: Result Comment: ADA RECOMMENDED LIMIT 4.0 - 6.0 ADA THERAPEUTIC TARGET < 7.0 ACTION SUGGESTED > 7.0 Performed By: #### A 1C #### [facility] [address] [place] [address] Dr. Ayush Rice Glucose [Mass/Vol] 126 mg/dL Normal [facility] Comment on above: Performed By: #### A 1C #### [facility] [address] [address] [address] Ayush Rice HbA1c (Bld) [Mass fraction] 6.0 % Normal 4.5-6.2 [facility] Comment on above: Performed By: #### A 1C #### [facility] [address] [address] [address] Ayush Rice LIPID PROFILEon 11-04-2022 CHOL-HDL RATIO NORM SEE BELOW Normal [facility] Comment on above: Result Comment: 3.3 - 4.4 LOW RISK 4.4 - 7.1 AVERAGE RISK 7.1 - 11.0 MODERATE RISK >11.0 HIGH RISK Performed By: #### T SH, T4, FT3, CMP, LIPID #### [facility] [address] [address] [address] Ayush Rice Cholesterol [Mass/Vol] 190 mg/dL Normal <=200 [facility] Comment on above: Performed By: #### T SH, T4, FT3, CMP, LIPID #### [facility] [address] [address] [address] Ayush Rice Cholesterol in HDL [Mass/Vol] 39 mg/dL Critically low 40-60 [facility] Comment on above: Performed By: #### T SH, T4, FT3, CMP, LIPID #### [facility] [address] [address] [address] Ayush Rice Cholesterol in LDL [Mass/Vol] 122.0 mg/dL Normal [facility] Comment on above: Performed By: #### T SH, T4, FT3, CMP, LIPID #### [facility] [address] [address] [address] Ayush Rice Cholesterol.total/ Cholesterol in HDL [Mass ratio] 4.9 {ratio} Normal [facility] Comment on above: Performed By: #### T SH, T4, FT3, CMP, LIPID #### [facility] [address] [place] [address] Dr. Ayush Rice HDL NORMAL > or = 60 mg/dl - LO W CARDIOVASCULAR RISK <40 mg/dl - HIGH CARDIOVASCULAR RISK Normal [facility] Comment on above: Performed By: #### T SH, T4, FT3, CMP, LIPID #### [facility] [address] [address] [address] Ayush Rice LDL CALC NORMAL SEE BELOW Normal [facility] Comment on above: Result Comment: <100 mg/dl OPTIMAL 100 - 129 mg/dl NEAR OR ABOVE OPTIMAL 130 - 159 mg/dl BORDERLINE HIGH 160 - 189 mg/dl HIGH >190 mg/dl VERY HIGH Performed By: #### T SH, T4, FT3, CMP, LIPID #### [facility] [address] [address] [address] Ayush Rice Triglyceride [Mass/Vol] 145 mg/dL Normal <=150 [facility] Comment on above: Performed By: #### T SH, T4, FT3, CMP, LIPID #### [facility] [address] [place] [address] Dr. Ayush Rice VLDL CALC 29.0 mg/dL Normal [facility] Comment on above: Performed By: #### T SH, T4, FT3, CMP, LIPID #### [facility] [address] [place] [address] Dr. Ayush Rice PROF 14(COMP METB)on 023 Albumin [Mass/Vol] 3.8 g/dL Normal 3.4-5.0 [facility] Comment on above: Performed By: #### T SH, T4, FT3, CMP, LIPID #### [facility] [address] [place] [address] Dr. Ayush Rice Albumin/Globulin [Mass ratio] 1.1 {ratio} Normal [facility] Comment on above: Performed By: #### T SH, T4, FT3, CMP, LIPID #### [facility] [address] [place] [address] Dr. Ayush Rice ALP [Catalytic activity/Vol] 103 U/L Normal 46-116 [facility] Comment on above: Performed By: #### T SH, T4, FT3, CMP, LIPID #### [facility] [address] [place] [address] Dr. Ayush Rice ALT [Catalytic activity/Vol] 40 U/L Normal 16-63 [facility] Comment on above: Performed By: #### T SH, T4, FT3, CMP, LIPID #### [facility] [address] [address] [address] Ayush Rice Anion gap [Moles/Vol] 12.4 mmol/L Normal [facility] Comment on above: Performed By: #### T SH, T4, FT3, CMP, LIPID #### [facility] [address] [address] [address] Ayush Rice AST [Catalytic activity/Vol] 28 U/L Normal 15-37 [facility] Comment on above: Performed By: #### T SH, T4, FT3, CMP, LIPID #### [facility] [address] [place] [address] Dr. Ayush Rice Bilirubin [Mass/Vol] 0.9 mg/dL Normal 0.2-1.0 [facility] Comment on above: Performed By: #### T SH, T4, FT3, CMP, LIPID #### [facility] [address] [place] [address] Dr. Ayush Rice Calcium [Mass/Vol] 9.1 mg/dL Normal 8.5-10.1 [facility] Comment on above: Performed By: #### T SH, T4, FT3, CMP, LIPID #### [facility] [address] [place] [address] Dr. Ayush Rice Chloride [Moles/Vol] 107 mmol/L Normal 98-107 [facility] Comment on above: Performed By: #### T SH, T4, FT3, CMP, LIPID #### [facility] [address] [place] [address] Dr. Ayush Rice CO2 [Moles/Vol] 27.9 mmol/L Normal 21.0-32.0 [facility] Comment on above: Performed By: #### T SH, T4, FT3, CMP, LIPID #### [facility] [address] [place] [address] Dr. Ayush Rice Creatinine [Mass/Vol] 1.18 mg/dL Normal 0.70-1.30 [facility] Comment on above: Performed By: #### T SH, T4, FT3, CMP, LIPID #### [facility] [address] [place] [address] Dr. Ayush Rice EGFR-AF JAMAICAN >60 Normal >=60 [facility] Comment on above: Performed By: #### T SH, T4, FT3, CMP, LIPID #### [facility] [address] [place] [address] Dr. Ayush Rice EGFR-NON AF J[place]ICAN >60 Normal >=60 [facility] Comment on above: Performed By: #### T SH, T4, FT3, CMP, LIPID #### [facility] [address] [place] [address] Dr. Ayush Rice Globulin (S) [Mass/Vol] 3.4 g/dL Normal [facility] Comment on above: Performed By: #### T SH, T4, FT3, CMP, LIPID #### [facility] [address] [place] [address] Dr. Ayush Rice Glucose [Mass/Vol] 106 mg/dL Normal 74-[address] [facility] Comment on above: Performed By: #### T SH, T4, FT3, CMP, LIPID #### [facility] [address] [place] [address] Dr. Ayush Rice Potassium [Moles/Vol] 4.3 mmol/L Normal 3.5-5.1 [facility] Comment on above: Performed By: #### T SH, T4, FT3, CMP, LIPID #### [facility] [address] [place] [address] Dr. Ayush Rice Protein [Mass/Vol] 7.2 g/dL Normal 6.4-8.[address] [facility] Comment on above: Performed By: #### T SH, T4, FT3, CMP, LIPID #### [facility] [address] [place] [address] Dr. Ayush Rice Sodium [Moles/Vol] 143 mmol/L Normal 136-[address] [facility] Comment on above: Performed By: #### T SH, T4, FT3, CMP, LIPID #### [facility] [address] [place] [address] Dr. Ayush Rice Urea nitrogen [Mass/Vol] 15.0 mg/dL Normal 7.0-18.0 [facility] Comment on above: Performed By: #### T SH, T4, FT3, CMP, LIPID #### [facility] [address] [place] [address] Dr. Ayush Rice Urea nitrogen/Creatinin e [Mass ratio] 12.7 mg/mg Normal [facility] Comment on above: Performed By: #### T SH, T4, FT3, CMP, LIPID #### [facility] [address] [place] [address] Dr. Ayush Rice T4on 11-04-2022 T4 [Mass/Vol] 7.30 ug/dL Normal 4.50-12.10 [facility] Comment on above: Performed By: #### T SH, T4, FT3, CMP, LIPID #### [facility] [address] [place] [address] Dr. Ayush Rice TSHon 11-04-2022 TSH 1.301 uIU/mL Normal 0.358-3.740 [facility] Comment on above: Performed By: #### T SH, T4, FT3, CMP, LIPID #### [facility] [address] [place] [address] Dr. Ayush Rice VITAMIN D 25 OHon 11-04-2022 VIT D 25-OH 20.0 ng/mL Normal [facility] Comment on above: Performed By: #### T SH, T4, FT3, CMP, LIPID #### [facility] [address] [place] [address] Dr. Ayush Rice VIT D RANGES SEE BELOW [facility] Comment on above: Result Comment: <20 ng/mL Vit D deficient 20 - <30 ng/mL Vit D insufficient 30 - 100 ng/mL Vit D sufficient >100 ng/mL Potential Toxicity Performed By: #### T SH, T4, FT3, CMP, LIPID #### [facility] [address] [place] [address] Dr. Yilan Rice ECHOCARDIO M/2D COMPLETEon 0 08-03-2022 ECHOCARDIO M/2D COMPLETE Patient: RIOS BARTLETT Exam Date: 08/03/2022 : 1965 Gender:M Ordering : DR MARY KLINE . Admission #: [id number] Family : Order #: [id number] CLICK HERE TO VIEW EXAM ECHOCARDIOGRAM REPORT [...] Ma M.D. on 08/04/2022 at 19:15 Normal [facility] STRESS/REST MULTIon 08-03 CO STRESS/REST MULTI Patient: RIOS BARTLETT Exam Date: 08/03/2022 : 1965 Gender:M Ordering : DR MARY KLINE . Admission #: [id number] Family : Order #: [id number] CLICK HERE TO VIEW EXAM RADIOLOGY REPORT [...] Marie MD on 08/10/2022 at 13:50 Normal [facility] XR CHEST 2 Von 07-30-2022 XR CHEST [...] by: OLIVIA BECKER Date: 2022-07-30 17:15 Normal [facility] XR KNEE LT 4V or >on 023 [...] by: OLIVIA BECKER Date: 2022-07-30 17:16 Normal [facility] Office Visiton 03-27-2022 Follow-up visit [id number] Alexis Bartlett 1965 M Date Provider Department Center 03/27/2022 Lora-CHEIKH WALKER MP ORTHO MPORTHO No family history on file Level of Service:39422 [place] POSTOP FOLLOW UP VISIT RELATED TO ORIGINAL PX Reason for Visit and Comments: Pain [136] Normal [facility] 36on 03-18-2022 36 Pt was informed and verbalized understanding. Normal [facility] 36on 03-17-2022 36 Pt is complaining he is having a hard time with pain control. Most of the reported pain is in both of his legs and described as burning pain. Pt would like to know if there is anything else that can be prescribed along with the oxycodone he is currently taking? Please advise. Normal [facility] BASIC METABOLIC PANELon 02-26 Anion gap [Moles/Vol] 5 mmol/L Normal <=30 [facility] Comment on above: Performed By: #### L AB15 #### [facility] ([facility]) [address] [place] [address] Calcium [Mass/Vol] 8.5 mg/dL Low 8.6-10.3 [facility] Comment on above: Performed By: #### L AB15 #### [facility] ([facility]) [address] [place] [address] Chloride [Moles/Vol] 102 mmol/L Normal 98-107 [facility] Comment on above: Performed By: #### L AB15 #### [facility] ([facility]) [address] [place] [address] CO2 [Moles/Vol] 31 mmol/L Normal 21-31 [facility] Comment on above: Performed By: #### L AB15 #### [facility] ([facility]) [address] [facility] [place] [address] Creatinine [Mass/Vol] 0.96 mg/dL Normal 0.70-1.30 [facility] Comment on above: Performed By: #### L AB15 #### [facility] ([facility]) [address] [place] [address] GLOMERULAR FILTRATION RATE ML/MIN/1.73 SQ M.PREDICTED 88.6 mL/min/1.73m*2 Normal >60.0 [facility] Comment on above: Result Comment: The [facility]???s estimated glomerular filtration rate (eGFR) will [...] individuals. Performed By: #### L AB15 #### [facility] ([facility]) [address] [place] [address] Glucose [Mass/Vol] 112 mg/dL High 70-100 [facility] Comment on above: Performed By: #### L AB15 #### [facility] ([facility]) [address] [facility] [facility] [place] [address] Potassium [Moles/Vol] 4.7 mmol/L Normal 3.5-5.1 [facility] Comment on above: Performed By: #### L AB15 #### [facility] ([facility]) [address] [place] [address] Sodium [Moles/Vol] 138 mmol/L Normal 136-145 [facility] Comment on above: Performed By: #### L AB15 #### [facility] ([facility]) [address] [place] [address] Urea nitrogen [Mass/Vol] 16 mg/dL Normal 7-25 [facility] Comment on above: Performed By: #### L AB15 #### [facility] ([facility]) [address] [place] [address] UREA NITROGEN/CREATININ E (MASS RATIO) IN SER/PLAS 16.67 Normal [facility] Comment on above: Performed By: #### L AB15 #### [facility] ([facility]) [address] [place] [address] CBCon 03-14-2022 Erythrocyte distribution width (RBC) [Ratio] 13.8 % Normal 11.5-15.0 [facility] Comment on above: Performed By: #### L [id number] #### [facility] ([facility]) [address] [place] [address] ERYTHROCYTE MEAN CORPUSCULAR HEMOGLOBIN CONCENTRATION (G/DL) BY AUTOMATED 33.2 g/dL Normal 32.0-35.0 [facility] Comment on above: Performed By: #### L [id number] #### [facility] ([facility]) [address] [place] [address] Hematocrit (Bld) [Volume fraction] 43.1 % Normal 39.0-55.0 [facility] Comment on above: Performed By: #### L [id number] #### [facility] ([facility]) [address] [place] [address] Hemoglobin (Bld) [Mass/Vol] 14.3 g/dL Normal 13.0-17.0 [facility] Comment on above: Performed By: #### L [id number] #### [facility] ([facility]) [address] [place] [address] MCH (RBC) [Entitic mass] 30.4 pg Normal 27.0-33.0 [facility] Comment on above: Performed By: #### L [id number] #### [facility] ([facility]) [address] [place] [address] MCV (RBC) [Entitic vol] 91.7 fL Normal 82.0-98.0 [facility] Comment on above: Performed By: #### L [id number] #### [facility] ([facility]) [address] [place] [address] PLATELETS (10*3/UL) IN BLOOD AUTOMATED COUNT 203 10*3/uL Normal 150-400 [facility] Comment on above: Performed By: #### L [id number] #### [facility] ([facility]) [address] [place] [address] RBC (Bld) [#/Vol] 4.70 10*6/uL Normal 4.20-5.70 [facility] Comment on above: Performed By: #### L [id number] #### [facility] ([facility]) [address] [place] [address] WBC (Bld) [#/Vol] 15.55 10*3/uL High 4.00-10.60 [facility] Comment on above: Performed By: #### L [id number] #### [facility] ([facility]) [address] [place] [address] Letter (Out)on 03-14-2022 Letter (Out) [id number] BartlettAlexis tt 1965 M Date Provider Department Center 03/14/2022 [id number], GENERIC PRO*INIT None No family history on file Normal [facility] POCT GLUCOSE METER UNSOLICIT ED RESULTSon 03-14-2022 Glucose [Mass/Vol] 119 mg/dL High 70-105 [facility] Comment on above: Result Comment: jmat analilia Performed By: #### L [id number] ####[facility] ([facility])[address] [place] [address] Glucose [Mass/Vol] 123 mg/dL High 70-105 [facility] Comment on above: Result Comment: rsha w2 Performed By: #### L [id number] ####[facility] ([facility])[address] [place] [address] HPon 03-13-2022 HP History Of Present I [...] procedure: 1. L4-L5 posterior lumbar spine decompression (85563). 2. L4-L5 transforaminal lumbar interbody fusion using autograft, crushed cancellous allograft, and machine threaded bone dowel spacer ; and posterolateral fusion using autograft, crushed cancellous allograft (44306, 73639). 3. L4-L5 posterior spinal instrumentation using USS system from [employer] (83946). 4. Local bone autograft harvesting as well as use of crushed cancellous allograft (30620, 78151). 5. Use of intraoperative fluoroscopy (44515). Planned procedure date: 03/13/22 Discussed proposed procedure [...] at the same or adjacent level. Normal [facility] NURSNOTEon 03-13-2022 NURSNOTE FAMILY UPDATES XIONG D TO WR, NO FAMILY NEEDS AT THIS TIME. Normal [facility] OPNOTEon 03-13-2022 OPNOTE L4-L5 DECOMPRESSION WITH INTERBODY FUSION (L) Operative Note Date: 03/13/2022 Location: [facility] OR Name: Rios Bartlett, : 1965, Surgeons: Cheikh Walker - Primary Hvac Field Service Technician: Ambrosio Liang M.D. 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 Operation: 1. L4-L5 posterior lumbar spine decompression (77282). 2. L4-L5 transforaminal lumbar interbody fusion using autograft, crushed cancellous allograft, [employer] and machine threaded bone dowel spacer 11 mm; and posterolateral fusion using autograft, crushed cancellous allograft and [employer] (38793, 44502). 3. L4-L5 posterior spinal instrumentation using USS system from [employer] (61400). 4. Local bone autograft harvesting as well as use of crushed cancellous allograft (58068, 39833). 5. Use of intraoperative fluoroscopy (27816). 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 Procedure Summary Anesthesia: General ASA: III Position: Prone position on the Kamaljit table in reverse Trendelenburg position. Estimated Blood Loss: 200 mL Total IV Fluids: 1300 mL Drains: Hemovac Urethral Catheter Non-latex;Other (Comment) 16 Fr. (Active) Implants Type Name Action Serial No. Bone TISS BONE,CANC,CHIPS,PRES,60CC - [id number] - [id number] Implanted [id number] Allograft Tissue TISSUE VIVIGEN, 10 - [id number] - [id number] Implanted [id number] Allograft Tissue TISSUE VIVIGEN, 10 - [id number] - [id number] Implanted [id number] Bone TISS ALLOGRAFT,TP11MM,6X1X2.5 - [id number] - [id number] Implanted [id number] Screw SCREW,SIDE-OPEN,7.0M,50MM - [id number] Implanted Clamp COLLAR,TI,GROOVES - [id number] Implanted Nut TI-NUT,11M-WIDTH,ACROSS-FLAT S - [id number] Implanted Pin HILDA,6.0M,TI-HARD,50M - [id number] Implanted Staff: Set O Type Operator: Freya Bodi, RN Scrub Person: Tabatha German, LABORATORY SAMPLER [place] Scrub: Josie English Complications: None. Counts: [...] has been seen in preoperative clinic at [facility]. Procedure: The patient was taken to [...] anterior co (more content not included)... Normal [facility] POCT GLUCOSE METER UNSOLICIT ED RESULTSon 03-13-2022 Glucose [Mass/Vol] 166 mg/dL High 70-105 [facility] Comment on above: Result Comment: iede ldu Performed By: #### L [id number] #### [facility] ([facility]) [address] [place] [address] Glucose [Mass/Vol] 98 mg/dL Normal 70-105 [facility] Comment on above: Result Comment: epaw low Performed By: #### L [id number] #### [facility] ([facility]) [address] [place] [address] VITAMIN D 25 HYDROXYon 03-13 CALCIDIOL (25 [place] VITAMIN D3) (NG/ML) IN SER/PLAS 26.0 ng/mL Low 30.0-80.0 [facility] Comment on above: Result Comment: >80. 0 Toxicity possible Performed By: #### L [id number] #### [facility] (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 Results are for the identification of SARS-CoV-2 RNA. The SARS-CoV-2 RNA is generally detectable during the acute phase of infection. The Aptima SARS-CoV-2 Assay on the [facility] Fusion system is intended for use by laboratory personnel specifically instructed and trained in the operation of the [employer] system. The Aptima SARS-CoV-2 assay is only for use under the Food and Drug Administration Emergency Use Authorization. Testing is limited to laboratories certified under the Clinical Laboratory Improvement Amendments of 1988 (CLIA), 42 U.S.C. ???263a, to perform high complexity tests. Performed By: #### L [id number] #### [facility] ([facility]) [address] [place] [address] Orders Onlyon 03-09-2022 Orders Only [id number] Alexis Bartlett tt 1965 M Date Provider Department Center 03/09/2022 FREYA GUAMAN [facility] No family history on file Normal [facility] *MRSA/MSSA DNA NASALon 03-04 *MRSA/MSSA DNA NASAL Clinical Report: (D) Specimen: NASAL SWAB Collected: 03/04/2022 12:14 Status: Final Last Updated: 03/04/2022 21:39 MSSA DNA (Final) Methicillin Susceptible Staphylococcus aureus DNA Detected MRSA DNA (Final) Negative Normal [facility] Comment on above: Performed By: #### 3 1595 #### [facility] [address] [place] [address], [facility] APTTon 03-04-2022 aPTT Coag (Bld) [Time] 26.7 s Normal 25.0-35.0 [facility] Comment on above: Result Comment: ALL [...] THIS PURPOSE. Performed By: #### 5 7307, 39473 #### [facility] [address] [place] [address], [facility] BASIC METABOLIC PANELon 09-0 -2021 Calcium [Mass/Vol] 8.9 mg/dL Normal 8.6-10.3 [facility] Comment on above: Performed By: #### 0 0071 #### [facility] [address] [place] [address], [facility] Chloride [Moles/Vol] 105 mmol/L Normal 98-107 [facility] Comment on above: Performed By: #### 0 0071 #### [facility] [address] [place] [address], [facility] CO2 [Moles/Vol] 26 mmol/L Normal 21-31 [facility] Comment on above: Performed By: #### 0 0071 #### [facility] [address] [place] [address], [facility] Creatinine [Mass/Vol] 1.00 mg/dL Normal 0.70-1.30 [facility] Comment on above: Performed By: #### 0 0071 #### [facility] [address] [facility] [place] [address], [facility] GFR/1.73 sq M.predicted among non-blacks MDRD (S/P/Bld) [Vol rate/Area] mL/min/{1.73_m2} Normal >60 [facility] Comment on above: Result Comment: The [facility]'s estimated glomerular filtration rate (eGFR) will [...] individuals. Performed By: #### 0 0071 #### [facility] [address] Glucose [Mass/Vol] 95 mg/dL Normal 70-100 [facility] Comment on above: Performed By: #### 0 0071 #### [facility] [address] Potassium [Moles/Vol] 4.9 mmol/L Normal 3.5-5.1 [facility] Comment on above: Performed By: #### 0 0071 #### [facility] [address] Sodium [Moles/Vol] 138 mmol/L Normal 136-145 [facility] Comment on above: Performed By: #### 0 0071 #### [facility] [address] Urea nitrogen [Mass/Vol] 15 mg/dL Normal 7-25 [facility] Comment on above: Performed By: #### 0 0071 #### [facility] [address] CBC W/DIFFon 03-04-2022 ABS IMM GRANS 0.0 10*3/uL Normal 0.0-0.2 [facility] Comment on above: Performed By: #### 5 3 #### [facility] [address] [place] [address], [facility] ABS NEUTROPHILS 6.7 10*3/uL Normal 1.6-7.6 [facility] Comment on above: Performed By: #### 5 102 #### [facility] [address] [place] [address], [facility] Basophils (Bld) [#/Vol] 0.0 10*3/uL Normal 0.0-0.2 [facility] Comment on above: Performed By: #### 5 0103 #### [facility] [address] [place] [address], [facility] Basophils/100 WBC (Bld) 0.4 % Normal 0.0-1.0 [facility] Comment on above: Performed By: #### 5 0103 #### [facility] [address] [facility] [place] [address], [facility] Eosinophils (Bld) [#/Vol] 0.2 10*3/uL Normal 0.0-0.5 [facility] Comment on above: Performed By: #### 5 0103 #### [facility] [address] [place] [address], [facility] Eosinophils/100 WBC (Bld) 2.0 % Normal 0.0-6.0 [facility] Comment on above: Performed By: #### 5 0103 #### [facility] [address] Erythrocyte distribution width (RBC) [Ratio] 13.8 % Normal 11.5-15.0 [facility] Comment on above: Performed By: #### 5 0103 #### [facility] [address] [facility] Hematocrit (Bld) [Volume fraction] 48.0 % Normal 39.0-50.0 [facility] Comment on above: Performed By: #### 5 3 #### [facility] [address] Hemoglobin (Bld) [Mass/Vol] 15.9 g/dL Normal 13.0-17.0 [facility] Comment on above: Performed By: #### 5 3 #### [facility] [address] [facility] [place] [address], [facility] IMMATURE GRANS 0.3 % Normal 0.0-1.0 [facility] Comment on above: Performed By: #### 3 #### [facility] [address] [place] [address], [facility] Lymphocytes (Bld) [#/Vol] 3.3 10*3/uL Normal 1.2-4.0 [facility] Comment on above: Performed By: #### 3 #### [facility] [address] [facility] [place] [address], [facility] Lymphocytes/100 WBC (Bld) 29.7 % Normal 20.0-45.0 [facility] Comment on above: Performed By: #### 102 #### [facility] [address] [facility] [place] [address], [facility] MCH (RBC) [Entitic mass] 29.8 pg Normal 27.0-33.0 [facility] Comment on above: Performed By: #### 102 #### [facility] [address] [facility]. [address] MCHC (RBC) [Mass/Vol] 33.1 g/dL Normal 32.0-35.0 [facility] Comment on above: Performed By: #### 102 #### [facility] [address] [facility] [place] [address], [facility] MCV (RBC) [Entitic vol] 90.1 fL Normal 82.0-98.0 [facility] Comment on above: Performed By: #### 3 #### [facility] [address] [facility] [place] [address], [facility] Monocytes (Bld) [#/Vol] 0.8 10*3/uL Normal 0.1-1.0 [facility] Comment on above: Performed By: #### 102 #### [facility] [address] [place] [address], [facility] MONOS 7.4 % Normal 5.0-12.0 [facility] Comment on above: Performed By: #### 5 0103 #### [facility] [address] [facility] [place] [address], [facility] Neutrophils/100 WBC (Bld) 60.2 % Normal 40.0-72.0 [facility] Comment on above: Performed By: #### 5 0103 #### [facility] [address] [place] [address], [facility] Nucleated RBC/100 WBC (Bld) [Ratio] 0 % Normal 0-0 [facility] Comment on above: Performed By: #### 5 0103 #### [facility] [address] [place] [address], [facility] PLAT CNT 197 10*3/uL Normal 150-400 [facility] Comment on above: Performed By: #### 5 0103 #### [facility] [address] RBC (Bld) [#/Vol] 5.33 10*6/uL Normal 4.20-5.70 [facility] Comment on above: Performed By: #### 5 0103 #### [facility] [address] [place] [address], [facility] WBC (Bld) [#/Vol] 11.07 10*3/uL High 4.00-10.60 [facility] Comment on above: Performed By: #### 5 0103 #### [facility] [address] PROTHROMBIN TIMEon 2 INR Coag (PPP) [Relative time] 0.97 {INR} Normal 0.91-1.16 [facility] Comment on above: Result Comment: ACCC P RECOMMENDED INR FOR WARFARIN THERAPY ----- [...] CHEST 1995;108:231S-246S. Performed By: #### 5 7307, 49756 #### [facility] [address] [place] [address], [facility] PT Coag (PPP) [Time] 12.9 s Normal 12.3-14.8 [facility] Comment on above: Result Comment: ALL RESULTS MUST BE INTERPRETED WITH RESPECT TO BLOOD DRAWING ARTIFACT OR DILUTION ERROR OF ANTICOAGULANT AT THE TIME OF SAMPLING. Performed By: #### 5 7307, 97729 #### [facility] [address] [place] [address], [facility] TYPE AND CROSSMATCHon 2021 ABO INTERPRETATION A Normal [facility] Comment on above: Performed By: #### 6 2594 #### [facility] [address] [facility] [place] [address], [facility] RH INTERPRETATION Positive Normal [facility] Comment on above: Performed By: #### 6 2594 #### [facility] [address] [facility] [place] [address], [place] TYPE AND SCREENon 03-04-2022 AB SCREEN Negative Normal [facility] Comment on above: Performed By: #### L [id number] #### [facility] ([facility]) [address] [place] [address] ABO group Nom (Bld) A Normal [facility] Comment on above: Performed By: #### L [id number] #### [facility] ([facility]) [address] [place] [address] RH TYPE IN BLOOD Positive Normal [facility] Comment on above: Performed By: #### L [id number] #### [facility] ([facility]) [address] [place] [address] URINALYSISon 03-04-2022 Appearance (U) CLEAR Normal CLEAR [facility] Comment on above: Performed By: #### 1 0008 #### [facility] [address] [place] [address], [place] Bilirubin Ql (U) Negative Normal NEGATIVE [facility] Comment on above: Performed By: #### 1 0008 #### [facility] [address] [place] [address], [place] Color (U) YELLOW Normal YELLOW [facility] Comment on above: Performed By: #### 1 0008 #### [facility] [address] [place] [address], [place] EPIS NONE SEEN Normal FEW,OCC,NON E SEEN [facility] Comment on above: Performed By: #### 1 0008 #### [facility] [address] [place] [address], [place] Glucose Ql (U) Negative Normal NEGATIVE [facility] Comment on above: Performed By: #### 1 0008 #### [facility] [address] [place] [address], [place] Hemoglobin Ql (U) Negative Normal NEGATIVE [facility] Comment on above: Performed By: #### 1 0008 #### [facility] [address] [place] [address], [place] KETONE Negative Normal NEGATIVE [facility] Comment on above: Performed By: #### 1 0008 #### [facility] [address] [place] [address], [place] LEUK OTF Negative Normal NEGATIVE [facility] Comment on above: Performed By: #### 1 0008 #### [facility] [address] [facility] [place] [address], [facility] MUCUS THREADS OCC Abnormal NONE SEEN [facility] Comment on above: Performed By: #### 1 0008 #### [facility] [address] [facility] [place] [address], [facility] Nitrite Ql (U) Negative Normal NEGATIVE [facility] Comment on above: Performed By: #### 1 0008 #### [facility] [address] [place] [address], [facility] pH (U) 5.5 [pH] Normal 5.0-8.0 [facility] Comment on above: Performed By: #### 1 0008 #### [facility] [address] [place] [address], [facility] Protein Ql (U) Negative Normal NEGATIVE [facility] Comment on above: Performed By: #### 1 0008 #### [facility] [address] [place] [address], [facility] RBC 0-2 Abnormal NONE SEEN [facility] Comment on above: Performed By: #### 1 0008 #### [facility] [address] [place] [address], [facility] SPEC GRAV 1.020 Normal 1.015-1.020 [facility] Comment on above: Performed By: #### 1 0008 #### [facility] [address] [place] [address], [facility] WBC UA 0-2 Abnormal NONE SEEN [facility] Comment on above: Performed By: #### 1 0008 #### [facility] [address] [place], [place] [address] [place] [address] MRI LUMBAR SPINE WO CONTRAST on 01-28-2022 MRI LUMBAR SPINE WO CONTRAST [facility] Department of Radiology [address] [place] [address] [phone] Patient Name: RIOS BARTLETT : 1965 Sex: M Age: Race: White Pt. Location: 84 Patient Status: O Ordered Date: 01/07/2022 12:25:00 PM Completed Date: 01/28/2022 11:47 AM Requesting Provider: CHEIKH WALKER Attending Provider: Report Copy To: Signs & Symptoms: M54.16 Radiculopathy, lumbar region I10 History: [place] c-spine hardware/L knee replacement Comments: Evaluate Exam: [...] identified. Electronically signed: Jairo Tapia. Transcribed by: [email or web address], User Resident: Electronically Signed by: JAIRO TAPIA @ 01/28/2022 03:00 PM Normal [facility] Comment on above: Order Comment: Evalu [...] developed and its performance characteristic determined by [employer] and validated at [facility]. This test has not been FDA cleared [...] for SARS Antigen by [facility]ANY PERFORMED BY: [place] [address] PATHOLOGIST FILM SPLICER LEONA ALVAREZ M.D. Normal [facility] Comment on above: Performed By: #### S JOYCE COVID-19 SOHAIL #### [place] [id number] [facility] Sohail Ag Negativeon 11-04-19 Sohail Ag Negative Negative Normal Negative [facility] Comment on above: Result Comment: This is a duplicate Sohail SARS Antigen (HANY) result to be used for statistical tracking purpose only. PERFORMED BY: [place] [address] PATHOLOGIST FILM SPLICER LEONA ALVAREZ M.D. Performed By: #### S JOYCE COVID-19 SOHAIL #### [place] [id number] [facility] LUMBAR SPINE [address] [facility] LUMBAR SPINE 2 OR 3 S [facility] Department of Radiology [address] [place] [phone] Patient Name: RIOS BARTLETT : 1965 Sex: M Age: Race: White Pt. Location: Patient Status: D Ordered Date: 03/21/2021 1:15:00 PM Completed Date: 03/21/2021 01:11 PM Requesting Provider: DARON GOMEZ Attending Provider: TANYA NOVOA Report Copy To: Signs & Symptoms: M54.17 Radiculopathy, lumbosacral region I10 History: [place] Comments: Exam: LUMBAR SPINE 2 OR 3 [...] abnormality. Electronically signed: Laurent Lopez. Transcribed by: [email or web address], User Resident: Electronically Signed by: LAURENT LOPEZ @ 03/22/2021 02:01 PM Normal [facility] XR LUMBAR SPINE (2-3 VIEWS)o n [...] Jermaine Krishnamurthy MD 02/08/21 Final result Normal [facility] C-Reactive Proteinon 018 CRP mass conc 0.7 mg/dL Normal <0.9 [facility] Comment on above: Performed By: #### W SR, CRP ####[facility] [address] [place], [place] [phone] CNOVon 01-28-2018 CNOV Office Visit (ORTHCO) ----RIOS BARTLETT ([id number]) 1965 [facility] Time Provider Department01/28/18 8:40 AM HAMZAH HEMPHILL During your visit today, we recorded the following information about you: Weight Height 122.5 kg 1.753 Florencio Hemphill, DO 02/07/2018 6:54 PM Signednew Mateus Hemphill, DO 02/07/2018 6:54 PM SignedCONSULT ORTHOPAEDIC: KNEEPRIMARY CARE PHYSICIAN: Mary Kline MDREFERRING PROVIDER: Mary Kline MD[address] [facility] [address]ZNKMQYBBFS AND PLANHPI: Rios is a 52-year-old male [...] year(s) interfering with activities which include 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,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, participating in family activities, enjoying hobbies,walking, rising [...] Rios BartlettDATE: January 28, 2018 : 8:58 AMHamzah Hemphill DO 01/28/2018 9:40 AM SignedFollow up as neededReferring Provider: MARY KLINE [[id number]]Allergies As of Date: 01/28/2018 Noted Allergy ReactionMORPHINE 01/28/2018 9 - ItchingDate Reviewed: 01/28/2018Reviewed by: Marc (Newton) NEWTON Mistry - Fully AssessedReason for Visit: Left Knee Pain [1208]Primary Visit Diagnosis:Left knee pain, unspecified chronicity [M25.562]Order(s):XR LEG FRONTAL HIP TO ANKLE MECHANICAL AXIS [[id number]] Order #: [id number] FUTURE XR KNEE GENERAL 4V AP BOTH/PA BOTH/LAT/MERC LT [[id number]] Order #: [id number] FUTURE C-REACTIVE PROTEIN (CRP) [SQCRP] Order #: [id number] FUTURE SED RATE WESTERGREN [SQWSR] Order #: [id number] FUTURE CONSULT TO PHYSICAL THERAPY [9032] Order #: [id number]: 1Prescriptions as of 01/28/2018 Sig: TRAMADOL 50 [...] your clinician: Follow up as neededEncounter Number: [id number] Status:Closed by PÉREZHAMZAH Cuong on 02/07/18 Normal [facility] PROGRESSon 01-28-2018 Protein mass conc HNO ID: [id number] thor: Hamzah BurnettphillipSerchintane: (none)Author Type: PhysicianType: Progress NotesFiled: 02/07/2018 6:54 PMNote Text:CONSULT ORTHOPAEDIC: KNEEPRIMARY CARE PHYSICIAN: ED Yun PROVIDER: Mary Kline MD12[address] [facility] [id number] AND PLANHPI: Rios is a 52-year-old male who presents for evaluation of hischronic left knee pain. 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, participating in familyactivities, enjoying hobbies, walking, rising [...] January 28, 2018 : 8:58 AM Normal [facility] Protein mass conc HNO ID: [id number] Author: Hamzah Hemphill Service: (none) Author Type: Physician Type: Progress Notes Filed: 02/07/2018 6:54 PM Note Text: new images Normal [facility] Protein mass conc HNO ID: [id number] thor: Stephanie Adams (Tech): (none)Author Type: TechnicianType: Progress NotesFiled: 01/28/2018 8:24 AMNote Text: Radiology Service Progress NotePATIENT NAME: Rios BartlettMRN: [id number] OF SERVICE: January 28, 2018TIME: 8:24 AMPATIENT [...] BY: Donita Sethi 2017 8:24 AM Normal [facility] Sed Rate Westergrenon 2017 Sed Rate Westergren 2 mm/hr Normal 0-15 [facility] Comment on above: Performed By: #### W SR, CRP ####[facility] [address] [place], [place] [phone] XR KNEE 4V AP/PA BOTH+LAT/ME R LTon [...] KOVACS MD on Jan 28 2018 2:08PM [id number] Normal [facility] XR LEG FRONTL HIP-ANKL [facility] AXISon 01-28-2018 GFR/1.73 sq M predicted among non-blacks MDRD vol rate/area (S/P/Bld) * * *Final Report* * *DATE OF EXAM: Jan 28 2018 8:22AM CRX [id number] - XR LEG FRONTL HIP-ANKL [facility] AXIS / REASON: Pain in left knee * * * * Physician Interpretation * * * * EXAMINATION: XR LEG FRONTL [facility]IP[facility] AXISHISTORY: Pain in left knee .Patient/Technologist Provided History: PAIN LEFT KNEE AND SHINTECHNIQUE: XR LEG FRONTL HIP-ANKL [facility] AXIS Laterality: BILATERAL Number of different views (projections): 1 EACHCOMPARISON: NoneRESULT:Left total knee arthroplasty. No evidence of hardware failure or loosening. Moderate medial femorotibial compartment narrowing and mild lateral femorotibial compartment narrowing. Hip joint spaces appear maintained. Left biomechanical axis is 3 degrees varus and right biomechanical axis is 1 degree valgus.No other significant abnormality. -IMPRESSION:Mechanical axis as described.Assistant Coach: MARCOS Transcribe Date/Time: Jan 28 2018 8:34ADictated by : ZACH HANSEN MDThis examination was interpreted and the report reviewed and electronically signed by: EDNA KOVACS MD on Jan 28 2018 9:48AM [id number] Normal [facility] XR KNEE LEFT STANDARDon 01-26 XR [...] Jr.igned by:Miles Mishra Jr., MD02/11/17Final result Normal [facility] Vital Signs Date Time Vital Sign Value Performing Clinician Ko elizabeth 12-16-2022 13:33-0400 Blood Pressure Location Edna NILL [facility] 12-16-2022 13:33-0400 Diastolic blood pressure 66 mm[Hg] Edna NILL [facility] 12-16-2022 13:33-0400 Heart rate 70 /min Edna NILL [facility] 12-16-2022 13:33-0400 Respiratory rate 18 /min Edna NILL [facility] 12-16-2022 13:33-0400 Systolic blood pressure 118 mm[Hg] Edna NILL [facility] 02-08-2021 10:49-0400 Body mass index (BMI) [Ratio] 42.33 kg/m2 Mary Kline MD Work Phone: [employer] Work Phone: 02-08-2021 10:49-0400 Body temperature 98.4 [degF] Mary Kline MD Work Phone: [employer] Work Phone: 02-08-2021 10:49-0400 Body weight 133.81 kg Mary Kline MD Work Phone: [employer] Work Phone: 02-08-2021 10:49-0400 Diastolic blood pressure 90 mm[Hg] Mary Kline MD Work Phone: [employer] Work Phone: 02-08-2021 10:49-0400 Heart rate 92 /min Mary Kline MD Work Phone: [employer] Work Phone: 02-08-2021 10:49-0400 Respiratory rate 18 /min Mary Kline MD Work Phone: [employer] Work Phone: 02-08-2021 10:49-0400 SaO2% (BldA) [Mass fraction] 94 % Mary Kline MD Work Phone: [employer] Work Phone: 02-08-2021 10:49-0400 Systolic blood pressure 119 mm[Hg] Mary Kline MD Work Phone: [employer] Work Phone: Encounters Encounter Date Encounter Type Care Provider Facility Start: 12-30-2022 End: 12-31-2022 ambulatory Edna GOODWIN Facility: [place] Start: 12-30-2022 End: 12-30-2022 Patient encounter procedure Edna GOODWIN General [facility] [place] Start: 12-16-2022 End: 12-17-2022 ambulatory Edna GOODWIN Facility: [place] Start: 12-16-2022 End: 12-16-2022 Patient encounter procedure Edna GOODWIN General Surgery [facility] [place] Start: 11-04-2022 End: 11-05-[address] MARY KLINE . Facility:[facility] Start: 08-10-2022 End: 08-11-[address] MARY KLINE . Facility:[facility] Start: 08-03-2022 End: 08-04-[address] MARY KLINE . Facility:[facility] Start: 07-30-2022 End: 07-31-[address] MARY KLINE . Facility:[facility] Start: 03-27-2022 End: 03-27-2022 ambulatory CHEIKH WALKER [facility] Start: 03-14-2022 Evaluation and management of inpatient AMBROSIO LIANG [facility] Start: 03-13-2022 End: 03-14-2022 Evaluation and management of inpatient CHEIKH BRIDGESIndio [facility] Start: 03-13-2022 End: 03-14-2022 Evaluation and management of inpatient CHEIKH ACOSTAREGENCY MERIDIANIndio [facility] Start: 03-10-2022 End: 03-10-2022 [facility] Start: 01-28-2022 End: 01-29-2022 ambulatory MARY KLINE Facility:[facility] Start: 02-08-2021 Emergency department patient visit MARY M [facility] Start: 02-08-2021 End: 02-08-2021 Emergency department patient visit Mary Kline MD Work Phone: [facility] ED Comment on above: Acute exacerbation o f chronic low back pain (Primary Dx) Start: 01-28-2018 End: 02-08-2018 Patient encounter HAMZAH HEMPHILL [facility] Start: 02-11-2017 End: 02-12-2017 [facility] Procedures Date Procedure Procedure Detail Performing Clinician Start: 11-04-[address] MARY KLINE . Comment on above: Performed By: #### TSH, T4, FT3, CMP, LI PID #### [facility] [address] [place] [address] Dr. Ayush Rice Start: 03-04-2022 Antibody screen MARY KLINE Comment on above: Performed By: #### [id number] #### [address] Start: 08-27-2021 Exploration procedure Edna GOODWIN Comment on above: left mid back Start: 02-08-2021 Radex spine lumbosacral 2/3 views Niall De La Torre VASCULAR NURSE - DEPUTY SHERIFF GENERALIST Work Phone: Start: 06-28-2019 Uvulopalatopharyngoplasty Edna GOODWIN Start: 02-11-2017 Radiologic examination knee 3 views OLIVIA ZAMAN Start: 10-06-2016 L knee synovectomy, poly exchange, quad plasty complicated by obesity Edna GOODWIN ACDF 5-7 Edna GOODWIN Gastric sleeve Edna GOODWIN History of revision of left total knee arthroplasty Edna GOODWIN left knee arthroscopy Tish GOODWIN left total knee arthroplasty Edna GOODWIN Local anesthetic ner ve block in lower limb Edna GOODWIN Comment on above: left knee Lumbar spinal fusion Edna CALDWELLL Nasal septoplasty Edna TERAN Tonsillectomy and adenoidectomy Edna CALDWELL Torsion of testis (disorder) Edna GOODWIN Plan of Treatment Date Care Activity Detail Author Start: 02-26-2021 Influenza vaccination Flu vaccine (# 1) [employer] Work Phone: Start: 2016 Shingles Vaccine (1 of 2) Shingles Vaccine (1 of 2) [employer] Phone: Start: 09-07-2011 Screening for malign ant neoplasm of colon Colon cancer [facility] Start: 2006 Lipid panel Lipid screen [facility] Work Phone: Start: 1985 DTaP/Tdap/Td vaccine (1 - Tdap) DTaP/Tdap/Td vaccine (1 - Tdap) [employer] Phone: Start: 1981 HIV screening HIV screen [facility] Work Phone: Start: 1965 Hepatitis C screening Hepatitis C sc reejustyna [employer] Phone: XR LUMBAR SPINE (2-3 VIEWS) XR LUMBAR SPINE (2-3 VIEWS) Imaging STAT 02/08/2021 12:10 PM EDT [employer] Work Phone: Immunizations Immunization Date Immunization Notes Care Provider Jenniffer lagos NEGATED: Highlighted row has not occurred!08-13-2021 influenza virus vaccine, unspecified formulation Edna GOODWIN General Surgery [place] Payers Date Payer Category Payer Medicare [id number] 2019 Unknown [id number] 2016 Unknown [id number] 1965 Unknown [id number] 2.16.8 [id number] 1966 Unknown [id number] 2.16.8 [id number] 1966 Unknown [id number] 2.16.84 [id number] 1966 Unknown [id number] 2.16.84 [id number] 1966 Unknown [id number] 2.16.84 [id number] 1966 Unknown [id number] 2.16.84 [id number] 1966 Unknown [id number] 2.16.8 [id number] 1965 Unknown [id number] 2.16.8 [id number] Social History Date Type Detail Facility Start: 02-08-2021 End: 12-16-2022 Tobacco smoking status MDIS Never smoker General Surg mouna [place] Start: 02-08-2021 Tobacco use and exposure Never used [employer] Start: 1965 Sex Assigned At Not on file [employer] Work Phone: Exposure to SARS-CoV -2 (event) Not sure [employer] Tobacco smoking status Never Gener al Surgery [place] Sex Assigned At Male [facility] Functional Status Date Assessment Result Facility 12-16-2022 [...] vaccine, inactivated - Not Given Patient Refuses [facility] Comment on above: Result Comment: Elec tronically [...] as tolerated Follow up in 4 weeks [facility] 03-14-2022 Note Orthopaedic Discharg e Summary Patient ID: Rios Bartlett [id number] y.o. 1965 Admit date: 03/13/2022 Discharge [...] at bedtime for constipation. ergocalciferol 1.25 MG (26020 UT) capsule Commonly known as: Vitamin D-2 [...] These medications were sent to [id number] - [place] - [address] [facility] [address] [facility] [id number] acetaminophen 500 mg tablet acetaminophen 500 mg tablet cephalexin 500 mg capsule cholecalciferol 50 MCG (2000 UT) tablet docusate sodium 100 mg capsule docusate sodium 100 mg tablet ergocalciferol 1.25 MG (31717 UT) capsule methocarbamol 750 mg tablet ondansetron [...] Ambrosio Liang MD in 10-14 days at [facility] Orthopaedic Clinic [phone] Hospital Course: Rios Bartlett was admitted on 03/13/2022 and underwent the aforementioned procedure. Post-operatively, he had adequate pain control and physical therapy to be able to be discharged from the hospital. DVT prophylaxis consisted of Lovenox only while admitted and none on discharge . Signed: Ambrosio Liang MD 3:48 PM 04/02/2022 [facility] 03-14-2022 Note This report has been cancelled. [facility] 03-14-2022 Note Pt to discharge home with a rolling walker script. [facility] 03-14-2022 Note Physical Therapy Physical Therapy [...] stair negotiation at home 03/14/22 03/28/22 -- [facility] 03-14-2022 Note Occupational Therapy Occupational Therapy [...] drugs (CMS/HCC) 2019 WITH ANESTHESIA Lumbar radiculopathy Past Surgical History: [...] Level of Function Prior Function Level of Stone: Independent with ADLs and functional transfers Vocational: [...] Eating meals?: None (Independent) Total Score OT [facility]: 21 ---- (more content not included)... [facility] 03-14-2022 Note Orthopedic Progress Note Status post Procedure(s) with comments: L4-L5 DECOMPRESSION WITH INTERBODY FUSION (Left) - C-ARM, SYNTHES, KAMALJIT TABLE, SSEP#[id number], REPS NOTIFIED RP. SUBJECTIVE: Patient seen and [...] MD Orthopaedic Surgery Resident, PGY-IV Personal pager: [phone] 03/14/2022 [facility] 03-13-2022 Note Patient: Rios holloway Procedure Summary Date: 03/13/22 Room / Location: [facility] OPERATING ROOM 12 / [facility] Operating Room Anesthesia Start: 734 Anesthesia [...] Hydration status: acceptable No notable events documented. [facility] 03-13-2022 Note Airway Date/Time: 03/13/2022 7:43 AM Urgency: elective Airway not difficult (done by medical student lawrence aguirre MS3) General Information and Staff Patient location during procedure: OR Anesthesiologist: Sara Felder MD Resident/RESIDENT ASSISTANT CNA/KRYSTAL: KRYSTAL Thompson Performed: other anesthesia staff Indications and Patient Condition Indications for airway management: anesthesia Spontaneous Ventilation: absent Sedation level: deep Preoxygenated: yes Mask difficulty assessment: 3 - difficult mask (inadequate, unstable or two providers) +/- NMBA Final Airway Details Final airway type: endotracheal airway Successful airway: ETT Cuffed: yes Successful intubation technique: video laryngoscopy Endotracheal tube insertion site: oral Blade: [employer] Blade size: #4 ETT size (mm): 8.0 Cormack-Lehane Classification: grade I - full view of glottis Placement verified by: chest auscultation and capnometry Measured from: lips ETT to lips (cm): 23 Number of attempts at approach: 1 Number of other approaches attempted: 0 Additional Comments Big neck.2 hand BMV with oral airway [facility] 03-13-2022 Note Patient: Rios holloway Procedure Information Date/Time: 03/13/2230 Procedure: L4-L5 DECOMPRESSION WITH INTERBODY FUSION (Spine Lumbar) - C-ARM, SYNTHES, KAMALJIT TABLE, SSEP#[id number], REPS NOTIFIED RP. Location: [facility] OPERATING ROOM 12 / [facility] Operating Room Surgeons: Cheikh Walker MD [...] consented to blood products. Additional Equipment Requests [facility] Evaluation + Plan note Future Appointments Appointment Date:12/30/2022 02:40:00 PM Scheduled Provider:Edna GOODWIN MD Location:[facility] Appointment Type: Procedure 30 General Surgery [email or web address] Evaluation note Diagnosis Acute exacerbation of chronic low back pain- Primary documented in this encounter [employer] Phone: Hospital course Narrative No data available for this section General Surgery [email or web address] Hospital Discharge instructions* Attachments The following attachments cannot be sent through Care Everywhere. * Low Back Pain: Exercises (Congolese) * Back Pain (Congolese) documented [facility] Phone: Hospital Discharge instructions No data available for this section General Surgery [email or web address] Progress note No data available for this section General Surgery [email or web address] Summary Purpose Family History No Family History Records FoundNo Family History Records FoundNo Family History Records FoundNo Family History Records FoundNo Family History Records FoundNo Family History Records FoundNo Family History Records FoundNo Family History Records Found Advance Directives No Advanced Directives Records FoundDocuments on File Type Date 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 ACP-Advance Directive ACP-Power of Cementer Hand Additional Source Comments (unrecognized sect ion and content) No Status Records FoundNo Status Records FoundNo Status Records FoundNo Status Records FoundNo Status Records FoundNo Status Records FoundNo Status Records FoundNo Status Records Found INFORMATION SOURCE (unrecogn ized section and content) DATE CREATED AUTHOR 12/22/2017 Elle fernando DATE CREATED AUTHOR AUTHOR'S ORGANIZ ATION 02/09/2018 [facility] DATE CREATED AUTHOR AUTHOR'S ORGANIZ ATION 02/09/2021 [facility] DATE CREATED AUTHOR AUTHOR'S ORGANIZ ATION 12/05/2021 [facility] DATE CREATED AUTHOR AUTHOR'S ORGANIZ ATION 03/05/2022 [facility] DATE CREATED AUTHOR AUTHOR'S ORGANIZ ATION 05/08/2022 [facility] DATE CREATED AUTHOR AUTHOR'S ORGANIZ ATION 11/08/2022 [facility] DATE CREATED AUTHOR AUTHOR'S ORGANIZ ATION 06/26/2023 [employer] [facility] Reason for Visit (unrecogniz ed section and content) Reason Comments Back Pain pt states he has chr onic low back pain, states the pain has gotten worse in the past 2 days with some increased activity. Pt states he has an appointment with his ortho , in [place] on 02/21 Ordered Prescriptions (unrec ognized section [...] 1231 (Not Given - Pr ovider: Janet Hermosillo RN - Reason: Other - Comment: SENT HOME WITH PATIENT, HE HAS NO RIDE) methylPREDNISolone sodium (SOLU-MEDROL) injection 60 mg (COMPLETED) 60 mg, Intramuscular, ONCE, On 02/08/21 at 1300, For 1 dose 1300 (Given - Provid er: Janet Hermosillo, RN) orphenadrine (NORFLEX) injection 60 mg 60 mg, Intramuscular, ONCE, On 02/08/21 at 1200, For 1 dose 1238 (Not Given - Pr ovider: Janet Hermosillo, [place] - Reason: Patient/family refused - Comment: pt has no ride home) Patient Care team informatio n (unrecognized section and content) Personnel Name: Mary Kline MD Address: Address: [address] [place] [id number] Personnel Name: Mary Kline MD Address: Address: [address] [place] [address] FOR RECORDS PERTAINING TO PATIENTS WHO ARE [...] BE BASED ON THE PRIMARY CLINICAL RECORDS. [facility] [employer] [facility]. provides no warranty or guarantee of the accuracy or completeness of information in this document.
[2024-05-12 12:49] LABS: Basophils Absolute Auto 0.1 10^3/uL (0.0-0.1); Basophils Percent Auto 0.5 % (0.2-2.0); Eosinophils Absolute Auto 0.2 10^3/uL (0.0-0.7); Eosinophils Percent Auto 1.6 % (0.9-7.0); Hematocrit 51.1 % (42.0-54.0); Hemoglobin 17.1 g/dL (14.0-18.0); Immature Granulocytes Abs Auto 0.06 10^3/uL (0.00-0.03); Immature Granulocytes Pct Auto 0.5 % (0.0-0.5); Lymphocytes Absolute Auto 3.8 10^3/uL (1.2-3.8); Lymphocytes Percent Auto 29.6 % (20.5-60.0); Mean Corpuscular HGB Conc 33.5 g/dL (29.9-35.2); Mean Corpuscular Hemoglobin 30.8 pg (25.9-34.0); Mean Corpuscular Volume 92.1 fL (80.0-94.0); Mean Platelet Volume 8.7 fL (9.5-13.5); Monocytes Absolute Auto 0.8 10^3/uL (0.3-0.8); Monocytes Percent Auto 6.2 % (1.7-12.0); Neutrophils Absolute Auto 7.9 10^3/uL (1.4-6.5); Neutrophils Percent Auto 61.6 % (43.0-75.0); Platelet Count 214 10^3/uL (150-450); Red Blood Count 5.55 10^6/uL (4.70-6.10); Red Cell Distribution Width 13.3 % (11.0-15.0); White Blood Count 12.8 10^3/uL (4.0-11.0)
[2024-05-12 13:03] LABS: Alanine Aminotransferase 27 U/L (16-63); Albumin Globulin Ratio 0.9; Albumin Level 3.5 g/dL (3.4-5.0); Alkaline Phosphatase 76 U/L (46-116); Anion Gap 14.7; Aspartate Amino Transferase 18 U/L (15-37); BUN Creatinine Ratio 13.4; Bilirubin Total 0.8 mg/dL (0.2-1.0); Calcium 9.4 mg/dL (8.5-10.1); Carbon Dioxide 27.7 mmol/L (21.0-32.0); Chloride 104 mmol/L (98-107); Chol HDL Ratio 4.2; Cholesterol 209 mg/dL (<=200); Estimated GFR (African America >60 (>=60 mL/min/1.73m^2); Estimated GFR (Non-African Ame >60 (>=60 mL/min/1.73m^2); Free T3 2.44 pg/mL (2.18-3.98); Globulin 3.8 g/dL; Glucose 106 mg/dL (74-106); HDL Cholesterol 50 mg/dL (40-60); Potassium 4.4 mmol/L (3.5-5.1); Sodium 142 mmol/L (136-145); Thyroid Stimulating Hormone 1.936 uIU/mL (0.358-3.740); Total Protein 7.3 g/dL (6.4-8.2); Triglycerides 156 mg/dL (<=150); Uric Acid 8.2 mg/dL (3.5-7.2); VLDL CHOLESTEROL 31.2 mg/dL
[2024-05-12 13:07] LABS: Estimated Average Glucose 128 mg/dL; Glycohemoglobin A1C 6.1 % (4.5-6.2)
[2024-05-12 13:21] LABS: Prostate Specific Antigen Scrn 0.67 ng/mL (<=4.00)
[2024-05-14 11:07] LABS: Insulin 31.2 uIU/mL (2.6-24.9)
== END 2024-05-12 12:10 | disposition home or self-care (01) ==
LOC: LAB 12:09
PROVIDERS: PCP Family Medicine; Visit Provider Family Medicine
DX: Z00.00 Encounter for general adult medical examination without abnormal findings (principal); E78.5 Hyperlipidemia, unspecified; R73.09 Other abnormal glucose; E03.9 Hypothyroidism, unspecified; Z12.5 Encounter for screening for malignant neoplasm of prostate
CPT/HCPCS: 36415; 80053; 80061; 83036; 83525; 84436; 84443; 84481; 84550; 85025; G0103

== ENCOUNTER 2024-08-04 09:56 | Outpatient (OUT) | payer OTHER, SELFPAY ==
--- NOTE | 2024-08-04 09:58 | CT_ITS ---
The [address] [address] Patient Name: SHAKILA LOPEZ MRN: [id number] date: 1965 Sex: M Assigned Patient Location: CT Current Patient Location: Accession/Order Number: [id number] Exam Date: 08/04/2024 10:05 Report Date: 08/07/2024 15:02 At the request of: MARY CORONADO Procedure: CT sinus wo con EXAMINATION: CT sinus wo con HISTORY: Chronic Sinusitis, Sleep Apnea COMPARISON: No relevant comparison available. TECHNIQUE: Axial and Coronal CT images were created without IV contrast. Dose reduction techniques were achieved by using automated exposure control and/or adjustment of mA and/or kV according to patient size and/or use of iterative reconstruction technique. FINDINGS: MAXILLARY SINUSES: No significant mucosal thickening or fluid. Infundibula are patent. No significant anomalous inferior orbital ethmoid (Paemla) air cells. ETHMOID SINUSES: No significant mucosal thickening or fluid. Fovea ethmoidali and lamina papyracea are symmetric and intact. SPHENOID SINUSES: No significant mucosal thickening or fluid. Sphenoethmoidal recesses are patent. No bony dehiscence. FRONTAL SINUSES: No significant mucosal thickening or fluid. Frontal recesses are patent. NASAL FOSSA: 4 mm rightward deviation of the medial nasal septum. Small vandana bullosa left middle nasal turbinate or paradoxical turbinates are identified. OTHER: Negative. Limited views of the skull base and orbits are unremarkable. CT/CT sinus wo con IMPRESSION: No significant sinus opacification 4 mm rightward deviation of the nasal septum. Electronically authenticated by: OLIVIA RODRIGUEZ Date: 08/07/2024 15:02
--- OUTSIDE RECORDS SUMMARY | 2024-08-04 10:11 | XMS_ITS | CCD ---
Author Organization [facility] Care Team Providers Care Head Resident Name Role Phone OLIVIA ZAMAN Unavailable Unavailable MARY KLINE Unavailable Unavailable OLIVIA ZAMAN Unavailable Unavailable HOYBILLMARY M Unavailable Unavailable HEMPHILL, HAMZAH P Unavailable Unavailable HEMPHILL, HAMZAH P Unavailable Unavailable HOY MARY M Unavailable Unavailable HEMPHILL, HAMZAH P Unavailable Unavailable Mary Kline MD Primary Care Provider [phone] MARY KLINE Primary Care Unavailable MARY [...] Agonists (1 source) Morphine Drug Allergy 02-23-2018 [facility] (6 sources) morphine; Translations: [MORPHINE] Drug Allergy 01-28-2018 [facility], Itching [facility] Repository Medications Current Medications Medication Drug Class(es) [...] Range Facility Physician Referralon 023 Physician Referral [id number] Normal [facility] RAD - CT Reporton 06-25-2023 RAD - CT Report [id number] Normal [facility] Ambulatory Visit Summaryon 0 12-30-2022 Ambulatory [...] depressive disorder Skin tags, multiple acquired Normal [facility] General Surgery Office/Clini c Noteon 12-30-2022 General [...] inactivated - Not Given Patient Refuses Normal [facility] Comment on above: Result Comment: Elec tronically Signed By: BUDDY TRAN, Edna Maher\.br\Date and Time Signed: 12/30/22 15:11 EDT Pre-Certification Formon Pre-Certification Form [id number] Normal [facility] Ambulatory Visit Summaryon 0 12-16-2022 Ambulatory [...] TRAN, Edna Maher Where: General Surgery Nill/Said [place] Normal [facility] CBC AUTO DIFFon 11-04-2022 BASO # 0.0 103/ul Normal 0.0-0.1 [facility] Comment on above: Performed By: #### T SH, T4, FT3, CMP, LIPID #### [facility] [address] [address] [address] Ayush Rice Basophils/100 WBC (Bld) 0.3 % Normal 0.2-2.0 [facility] Comment on above: Performed By: #### T SH, T4, FT3, CMP, LIPID #### [facility] [address] [address] [address] Ayush Rice EO # 0.2 103/ul Normal 0.0-0.7 [facility] Comment on above: Performed By: #### T SH, T4, FT3, CMP, LIPID #### [facility] [address] [address] [address] Ayush Rice Eosinophils/100 WBC (Bld) 1.5 % Normal 0.9-7.0 [facility] Comment on above: Performed By: #### T SH, T4, FT3, CMP, LIPID #### [facility] [address] [address] [address] Ayush Rice Erythrocyte distribution width (RBC) [Ratio] 14.2 % Normal 11.0-15.0 [facility] Comment on above: Performed By: #### T SH, T4, FT3, CMP, LIPID #### [facility] [address] [place] [address] Dr. Ayush Rice Hematocrit (Bld) [Volume fraction] 49.3 % Normal 42.0-54.0 [facility] Comment on above: Performed By: #### T SH, T4, FT3, CMP, LIPID #### [facility] [address] [place] [address] Dr. Ayush Rice Hemoglobin (Bld) [Mass/Vol] 16.2 g/dL Normal 14.0-18.0 [facility] Comment on above: Performed By: #### T SH, T4, FT3, CMP, LIPID #### [facility] [address] [place] [address] Dr. Ayush Rice IG # 0.03 10e3/ul Normal 0.00-0.03 [facility] Comment on above: Performed By: #### T SH, T4, FT3, CMP, LIPID #### [facility] [address] [place] [address] Dr. Ayush Rice IG % 0.3 % Normal 0.0-0.5 [facility] Comment on above: Performed By: #### T SH, T4, FT3, CMP, LIPID #### [facility] [address] [place] [address] Dr. Ayush Rice LYMPH # 2.6 103/ul Normal 1.2-3.8 [facility] Comment on above: Performed By: #### T SH, T4, FT3, CMP, LIPID #### [facility] [address] [place] [address] Dr. Ayush Rice Lymphocytes/100 WBC (Bld) 24.9 % Normal 20.5-60.0 [facility] Comment on above: Performed By: #### T SH, T4, FT3, CMP, LIPID #### [facility] [address] [place] [address] Dr. Ayush Rice MANUAL DIFF REQ NO Normal [facility] Comment on above: Performed By: #### T SH, T4, FT3, CMP, LIPID #### [facility] [address] [place] [address] Dr. Ayush Rice MCH (RBC) [Entitic mass] 30.1 pg Normal 25.9-34.0 [facility] Comment on above: Performed By: #### T SH, T4, FT3, CMP, LIPID #### [facility] [address] [place] [address] Dr. Ayush Rice MCHC (RBC) [Mass/Vol] 32.9 g/dL Normal 29.9-35.2 [facility] Comment on above: Performed By: #### T SH, T4, FT3, CMP, LIPID #### [facility] [address] [place] [address] Dr. Ayush Rice MCV (RBC) [Entitic vol] 91.5 fL Normal 80.0-94.0 [facility] Comment on above: Performed By: #### T SH, T4, FT3, CMP, LIPID #### [facility] [address] [place] [address] Dr. Ayush Rice MONO # 0.8 103/ul Normal 0.3-0.8 [facility] Comment on above: Performed By: #### T SH, T4, FT3, CMP, LIPID #### [facility] [address] [place] [address] Dr. Ayush Rice Monocytes/100 WBC (Bld) 7.4 % Normal 1.7-12.0 [facility] Comment on above: Performed By: #### T SH, T4, FT3, CMP, LIPID #### [facility] [address] [place] [address] Dr. Ayush Rice NEUT # 7.0 103/ul Critically high 1.4-6.5 [facility] Comment on above: Performed By: #### T SH, T4, FT3, CMP, LIPID #### [facility] [address] [place] [address] Dr. Ayush Rice Neutrophils/100 WBC (Bld) 65.6 % Normal 43.0-75.0 [facility] Comment on above: Performed By: #### T SH, T4, FT3, CMP, LIPID #### [facility] [address] [address] [address] Ayush Rice Platelet mean volume (Bld) [Entitic vol] 8.5 fL Critically low 9.5-13.5 [facility] Comment on above: Performed By: #### T SH, T4, FT3, CMP, LIPID #### [facility] [address] [address] [address] Ayush Rice PLT 232 103/ul Normal 150-450 [facility] Comment on above: Performed By: #### T SH, T4, FT3, CMP, LIPID #### [facility] [address] [place] [address] Dr. Ayush Rice RBC 5.39 106/ul Normal 4.70-6.10 [facility] Comment on above: Performed By: #### T SH, T4, FT3, CMP, LIPID #### [facility] [address] [place] [address] Dr. Ayush Rice WBC 10.6 103/ul Normal 4.0-11.0 [facility] Comment on above: Performed By: #### T SH, T4, FT3, CMP, LIPID #### [facility] [address] [place] [address] Dr. Ayush Rice FREE T3on 11-04-2022 FREE T3 2.93 pg/mlL Normal 2.18-3.98 [facility] Comment on above: Performed By: #### T SH, T4, FT3, CMP, LIPID #### [facility] [address] [place] [address] Dr. Ayush Rice GLYCOHEMOGLOBIN A1Con 2022 ADA RECOMMENDATION SEE BELOW Normal [facility] Comment on above: Result Comment: ADA RECOMMENDED LIMIT 4.0 - 6.0 ADA THERAPEUTIC TARGET < 7.0 ACTION SUGGESTED > 7.0 Performed By: #### A 1C #### [facility] [address] [place] [address] Dr. Ayush Rice Glucose [Mass/Vol] 126 mg/dL Normal [facility] Comment on above: Performed By: #### A 1C #### [facility] [address] [address] [address] Ayush Rice HbA1c (Bld) [Mass fraction] 6.0 % Normal 4.5-6.2 [facility] Comment on above: Performed By: #### A 1C #### [facility] [address] [address] [address] Ayush Rice LIPID PROFILEon 11-04-2022 CHOL-HDL RATIO NORM SEE BELOW Normal [facility] Comment on above: Result Comment: 3.3 - 4.4 LOW RISK 4.4 - 7.1 AVERAGE RISK 7.1 - 11.0 MODERATE RISK >11.0 HIGH RISK Performed By: #### T SH, T4, FT3, CMP, LIPID #### [facility] [address] [address] [address] Ayush Rice Cholesterol [Mass/Vol] 190 mg/dL Normal <=200 [facility] Comment on above: Performed By: #### T SH, T4, FT3, CMP, LIPID #### [facility] [address] [address] [address] Ayush Rice Cholesterol in HDL [Mass/Vol] 39 mg/dL Critically low 40-60 [facility] Comment on above: Performed By: #### T SH, T4, FT3, CMP, LIPID #### [facility] [address] [address] [address] Ayush Rice Cholesterol in LDL [Mass/Vol] 122.0 mg/dL Normal [facility] Comment on above: Performed By: #### T SH, T4, FT3, CMP, LIPID #### [facility] [address] [address] [address] Ayush Rice Cholesterol.total/ Cholesterol in HDL [Mass ratio] 4.9 {ratio} Normal [facility] Comment on above: Performed By: #### T SH, T4, FT3, CMP, LIPID #### [facility] [address] [place] [address] Dr. Ayush Rice HDL NORMAL > or = 60 mg/dl - LO W CARDIOVASCULAR RISK <40 mg/dl - HIGH CARDIOVASCULAR RISK Normal [facility] Comment on above: Performed By: #### T SH, T4, FT3, CMP, LIPID #### [facility] [address] [address] [address] Ayush Rice LDL CALC NORMAL SEE BELOW Normal [facility] Comment on above: Result Comment: <100 mg/dl OPTIMAL 100 - 129 mg/dl NEAR OR ABOVE OPTIMAL 130 - 159 mg/dl BORDERLINE HIGH 160 - 189 mg/dl HIGH >190 mg/dl VERY HIGH Performed By: #### T SH, T4, FT3, CMP, LIPID #### [facility] [address] [address] [address] Ayush Rice Triglyceride [Mass/Vol] 145 mg/dL Normal <=150 [facility] Comment on above: Performed By: #### T SH, T4, FT3, CMP, LIPID #### [facility] [address] [place] [address] Dr. Ayush Rice VLDL CALC 29.0 mg/dL Normal [facility] Comment on above: Performed By: #### T SH, T4, FT3, CMP, LIPID #### [facility] [address] [place] [address] Dr. Ayush Rice PROF 14(COMP METB)on 023 Albumin [Mass/Vol] 3.8 g/dL Normal 3.4-5.0 [facility] Comment on above: Performed By: #### T SH, T4, FT3, CMP, LIPID #### [facility] [address] [place] [address] Dr. Ayush Rice Albumin/Globulin [Mass ratio] 1.1 {ratio} Normal [facility] Comment on above: Performed By: #### T SH, T4, FT3, CMP, LIPID #### [facility] [address] [place] [address] Dr. Ayush Rice ALP [Catalytic activity/Vol] 103 U/L Normal 46-116 [facility] Comment on above: Performed By: #### T SH, T4, FT3, CMP, LIPID #### [facility] [address] [place] [address] Dr. Ayush Rice ALT [Catalytic activity/Vol] 40 U/L Normal 16-63 [facility] Comment on above: Performed By: #### T SH, T4, FT3, CMP, LIPID #### [facility] [address] [address] [address] Ayush Rice Anion gap [Moles/Vol] 12.4 mmol/L Normal [facility] Comment on above: Performed By: #### T SH, T4, FT3, CMP, LIPID #### [facility] [address] [address] [address] Ayush Rice AST [Catalytic activity/Vol] 28 U/L Normal 15-37 [facility] Comment on above: Performed By: #### T SH, T4, FT3, CMP, LIPID #### [facility] [address] [place] [address] Dr. Ayush Rice Bilirubin [Mass/Vol] 0.9 mg/dL Normal 0.2-1.0 [facility] Comment on above: Performed By: #### T SH, T4, FT3, CMP, LIPID #### [facility] [address] [place] [address] Dr. Ayush Rice Calcium [Mass/Vol] 9.1 mg/dL Normal 8.5-10.1 [facility] Comment on above: Performed By: #### T SH, T4, FT3, CMP, LIPID #### [facility] [address] [place] [address] Dr. Ayush Rice Chloride [Moles/Vol] 107 mmol/L Normal 98-107 [facility] Comment on above: Performed By: #### T SH, T4, FT3, CMP, LIPID #### [facility] [address] [place] [address] Dr. Ayush Rice CO2 [Moles/Vol] 27.9 mmol/L Normal 21.0-32.0 [facility] Comment on above: Performed By: #### T SH, T4, FT3, CMP, LIPID #### [facility] [address] [place] [address] Dr. Ayush Rice Creatinine [Mass/Vol] 1.18 mg/dL Normal 0.70-1.30 [facility] Comment on above: Performed By: #### T SH, T4, FT3, CMP, LIPID #### [facility] [address] [place] [address] Dr. Ayush Rice EGFR-AF ANGUILLAN >60 Normal >=60 [facility] Comment on above: Performed By: #### T SH, T4, FT3, CMP, LIPID #### [facility] [address] [place] [address] Dr. Ayush Rice EGFR-NON AF ANGUILLAN >60 Normal >=60 [facility] Comment on above: Performed By: #### T SH, T4, FT3, CMP, LIPID #### [facility] [address] [place] [address] Dr. Ayush Rice Globulin (S) [Mass/Vol] 3.4 g/dL Normal [facility] Comment on above: Performed By: #### T SH, T4, FT3, CMP, LIPID #### [facility] [address] [place] [address] Dr. Ayush Rice Glucose [Mass/Vol] 106 mg/dL Normal 74-106 [facility] Comment on above: Performed By: #### T SH, T4, FT3, CMP, LIPID #### [facility] [address] [place] [address] Dr. Ayush Rice Potassium [Moles/Vol] 4.3 mmol/L Normal 3.5-5.1 [facility] Comment on above: Performed By: #### T SH, T4, FT3, CMP, LIPID #### [facility] [address] [place] [address] Dr. Ayush Rice Protein [Mass/Vol] 7.2 g/dL Normal 6.4-8.2 [facility] Comment on above: Performed By: #### T SH, T4, FT3, CMP, LIPID #### [facility] [address] [place] [address] Dr. Ayush Rice Sodium [Moles/Vol] 143 mmol/L Normal 136-145 [facility] Comment on above: Performed By: #### T SH, T4, FT3, CMP, LIPID #### [facility] [address] [place] [address] Dr. Ayush Rice Urea nitrogen [Mass/Vol] 15.0 mg/dL Normal 7.0-18.0 [facility] Comment on above: Performed By: #### T SH, T4, FT3, CMP, LIPID #### [facility] [address] [place] [address] Dr. Ayush Rice Urea nitrogen/Creatinin e [Mass ratio] 12.7 mg/mg Normal [facility] Comment on above: Performed By: #### T SH, T4, FT3, CMP, LIPID #### [facility] [address] [place] [address] Dr. Ayush Rice T4on 11-04-2022 T4 [Mass/Vol] 7.30 ug/dL Normal 4.50-12.10 [facility] Comment on above: Performed By: #### T SH, T4, FT3, CMP, LIPID #### [facility] [address] [place] [address] Dr. Ayush Rice TSHon 11-04-2022 TSH 1.301 uIU/mL Normal 0.358-3.740 [facility] Comment on above: Performed By: #### T SH, T4, FT3, CMP, LIPID #### [facility] [address] [place] [address] Dr. Ayush Riec VITAMIN D 25 OHon 11-04-2022 VIT D 25-OH 20.0 ng/mL Normal [facility] Comment on above: Performed By: #### T SH, T4, FT3, CMP, LIPID #### [facility] [address] [place] [address] Dr. Ayush Rice VIT D RANGES SEE BELOW [facility] Comment on above: Result Comment: <20 ng/mL Vit D deficient 20 - <30 ng/mL Vit D insufficient 30 - 100 ng/mL Vit D sufficient >100 ng/mL Potential Toxicity Performed By: #### T SH, T4, FT3, CMP, LIPID #### [facility] [address] [place] [address] Dr. Yilan Rice ECHOCARDIO M/2D COMPLETEon 0 08-03-2022 ECHOCARDIO M/2D COMPLETE Patient: RIOS BARTLETT Exam Date: 08/03/2022 : 1965 Gender:M Ordering : DR MARY KLINE . Admission #: [id number] Family : Order #: [id number] CLICK HERE TO VIEW EXAM ECHOCARDIOGRAM REPORT [...] [facility] STRESS/REST MULTIon 08-03 [facility] STRESS/REST MULTI Patient: RIOS BARTLETT Exam Date: 08/03/2022 : 1965 Gender:M Ordering : DR MARY KLINE . Admission #: [id number] Family : Order #: [id number] CLICK HERE TO VIEW EXAM RADIOLOGY REPORT [...] Marie MD on 08/10/2022 at 13:50 Normal [facility] XR CHEST 2 Von 07-30-2022 XR CHEST [...] by: OLIVIA BECKER Date: 2022-07-30 17:15 Normal [facility] XR KNEE LT 4V or >on 023 [...] by: OLIVIA BECKER Date: 2022-07-30 17:16 Normal [facility] Office Visiton 03-27-2022 Follow-up visit [id number] Alexis Bartlett 1965 M Date Provider Department Center 03/27/2022 Lora-CHEIKH WALKER MP ORTHO MPORTHO No family history on file Level of Service:[id number] CO POSTOP FOLLOW UP VISIT RELATED TO ORIGINAL PX Reason for Visit and Comments: Pain [136] Normal [facility] 36on 03-18-2022 36 Pt was informed and verbalized understanding. Normal [facility] 36on 03-17-2022 36 Pt is complaining he is having a hard time with pain control. Most of the reported pain is in both of his legs and described as burning pain. Pt would like to know if there is anything else that can be prescribed along with the oxycodone he is currently taking? Please advise. Normal [facility] BASIC METABOLIC PANELon 02-26 Anion gap [Moles/Vol] 5 mmol/L Normal <=30 [facility] Comment on above: Performed By: #### L AB15 #### [facility] [address] [facility] [place] [address] Calcium [Mass/Vol] 8.5 mg/dL Low 8.6-10.3 [facility] Comment on above: Performed By: #### L AB15 #### [facility] [address] [place] [address] Chloride [Moles/Vol] 102 mmol/L Normal 98-107 [facility] Comment on above: Performed By: #### L AB15 #### [facility] [address] [place] [address] CO2 [Moles/Vol] 31 mmol/L Normal 21-31 [facility] Comment on above: Performed By: #### L AB15 #### [facility] ([facility]) [address] [facility] [place] [address] Creatinine [Mass/Vol] 0.96 mg/dL Normal 0.70-1.30 [facility] Comment on above: Performed By: #### L AB15 #### [facility] [address] [facility] [place] [address] GLOMERULAR FILTRATION RATE ML/MIN/1.73 SQ M.PREDICTED 88.6 mL/min/1.73m*2 Normal >60.0 [facility] Comment on above: Result Comment: The [facility]???s estimated glomerular filtration rate (eGFR) will [...] individuals. Performed By: #### L AB15 #### [facility] ([facility]) [address] [facility] [place] [address] Glucose [Mass/Vol] 112 mg/dL High 70-100 [facility] Comment on above: Performed By: #### L [id number] #### [facility] ([facility]) [address] [place] [address] Potassium [Moles/Vol] 4.7 mmol/L Normal 3.5-5.1 [facility] Comment on above: Performed By: #### L [id number] #### [facility] ([facility]) [address] [facility] [place] [address] Sodium [Moles/Vol] 138 mmol/L Normal 136-145 [facility] Comment on above: Performed By: #### L [id number] #### [facility] ([facility]) [address] [facility] [place] [address] Urea nitrogen [Mass/Vol] 16 mg/dL Normal 7-25 [facility] Comment on above: Performed By: #### L [id number] #### [facility] ([facility]) [address] [place] [address] UREA NITROGEN/CREATININ E (MASS RATIO) IN SER/PLAS 16.67 Normal [facility] Comment on above: Performed By: #### L [id number] #### [facility] ([facility]) [address] [facility] [place] [address] CBCon 03-14-2022 Erythrocyte distribution width (RBC) [Ratio] 13.8 % Normal 11.5-15.0 [facility] Comment on above: Performed By: #### L [id number] #### [facility] ([facility]) [address] [place] [address] ERYTHROCYTE MEAN CORPUSCULAR HEMOGLOBIN CONCENTRATION (G/DL) BY AUTOMATED 33.2 g/dL Normal 32.0-35.0 [facility] Comment on above: Performed By: #### L [id number] #### [facility] ([facility]) [address] [place] [address] Hematocrit (Bld) [Volume fraction] 43.1 % Normal 39.0-55.0 [facility] Comment on above: Performed By: #### L [id number] #### [facility] ([facility]) [address] [place] [address] Hemoglobin (Bld) [Mass/Vol] 14.3 g/dL Normal 13.0-17.0 [facility] Comment on above: Performed By: #### L [id number] #### [facility] ([facility]) [address] [place] [address] MCH (RBC) [Entitic mass] 30.4 pg Normal 27.0-33.0 [facility] Comment on above: Performed By: #### L [id number] #### [facility] ([facility]) [address] [place] [address] MCV (RBC) [Entitic vol] 91.7 fL Normal 82.0-98.0 [facility] Comment on above: Performed By: #### L [id number] #### [facility] ([facility]) [address] [place] [address] PLATELETS (10*3/UL) IN BLOOD AUTOMATED COUNT 203 10*3/uL Normal 150-400 [facility] Comment on above: Performed By: #### L [id number] #### [facility] ([facility]) [address] [place] [address] RBC (Bld) [#/Vol] 4.70 10*6/uL Normal 4.20-5.70 [facility] Comment on above: Performed By: #### L [id number] #### [facility] ([facility]) [address] [place] [address] WBC (Bld) [#/Vol] 15.55 10*3/uL High 4.00-10.60 [facility] Comment on above: Performed By: #### L [id number] #### [facility] ([facility]) [address] [place] [address] Letter (Out)on 03-14-2022 Letter (Out) [id number] BartlettAlexis tt 1965 M Date Provider Department Center 03/14/2022 [id number], GENERIC PRO*INIT None No family history on file Normal [facility] POCT GLUCOSE METER UNSOLICIT ED RESULTSon 03-14-2022 Glucose [Mass/Vol] 119 mg/dL High 70-105 [facility] Comment on above: Result Comment: jmat analilia Performed By: #### L [id number] ####[facility] ([facility])[address] [place] [address] Glucose [Mass/Vol] 123 mg/dL High 70-105 [facility] Comment on above: Result Comment: rsha w2 Performed By: #### L [id number] ####[facility] ([facility])[address] [place] [address] HPon 03-13-2022 HP History Of Present I [...] procedure: 1. L4-L5 posterior lumbar spine decompression (35850). 2. L4-L5 transforaminal lumbar interbody fusion using autograft, crushed cancellous allograft, and machine threaded bone dowel spacer ; and posterolateral fusion using autograft, crushed cancellous allograft (68747, 70200). 3. L4-L5 posterior spinal instrumentation using USS system from [employer] (98697). 4. Local bone autograft harvesting as well as use of crushed cancellous allograft (00775, 60391). 5. Use of intraoperative fluoroscopy (69166). Planned procedure date: 03/13/22 Discussed proposed procedure [...] at the same or adjacent level. Normal [facility] NURSNOTEon 03-13-2022 NURSNOTE FAMILY UPDATES XIONG D TO WR, NO FAMILY NEEDS AT THIS TIME. Normal [facility] OPNOTEon 03-13-2022 OPNOTE L4-L5 DECOMPRESSION WITH INTERBODY FUSION (L) Operative Note Date: 03/13/2022 Location: [facility] OR Name: Rios Bartlett, : 1965, Surgeons: Cheikh Walker - Primary Cop: Ambrosio Liang M.D. 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 Operation: 1. L4-L5 posterior lumbar spine decompression (66596). 2. L4-L5 transforaminal lumbar interbody fusion using autograft, crushed cancellous allograft, [employer] and machine threaded bone dowel spacer 11 mm; and posterolateral fusion using autograft, crushed cancellous allograft and [employer] (82938, 52640). 3. L4-L5 posterior spinal instrumentation using USS system from [employer] (19964). 4. Local bone autograft harvesting as well as use of crushed cancellous allograft (51057, 09317). 5. Use of intraoperative fluoroscopy (14933). 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 Procedure Summary Anesthesia: General ASA: III Position: Prone position on the Kamaljit table in reverse Trendelenburg position. Estimated Blood Loss: 200 mL Total IV Fluids: 1300 mL Drains: Hemovac Urethral Catheter Non-latex;Other (Comment) 16 Fr. (Active) Implants Type Name Action Serial No. Bone TISS BONE,CANC,CHIPS,PRES,60CC - [id number] - [id number] Implanted [id number] Allograft Tissue TISSUE VIVIGEN, 10 - [id number] - [id number] Implanted [id number] Allograft Tissue TISSUE VIVIGEN, 10 - [id number] - [id number] Implanted [id number] Bone TISS ALLOGRAFT,TP11MM,6X1X2.5 - [id number] - [id number] Implanted [id number] Screw SCREW,SIDE-OPEN,7.0M,50MM - [id number] Implanted Clamp COLLAR,TI,GROOVES - [id number] Implanted Nut TI-NUT,11M-WIDTH,ACROSS-FLAT S - [id number] Implanted Pin HILDA,6.0M,TI-HARD,50M - [id number] Implanted Staff: Independent Crop Consultant: Freya Bodi, RN Scrub Person: Tabatha German, STERILE PROCESS TECH [employer] Scrub: Josie English Complications: None. Counts: [...] has been seen in preoperative clinic at [facility]. Procedure: The patient was taken to [...] anterior co (more content not included)... Normal [facility] POCT GLUCOSE METER UNSOLICIT ED RESULTSon 03-13-2022 Glucose [Mass/Vol] 166 mg/dL High 70-105 [facility] Comment on above: Result Comment: iede ldu Performed By: #### L [id number] #### [facility] ([facility]) [address] [place] [address] Glucose [Mass/Vol] 98 mg/dL Normal 70-105 [facility] Comment on above: Result Comment: epaw low Performed By: #### L [id number] #### [facility] ([facility]) [address] [place] [address] VITAMIN D 25 HYDROXYon 03-13 CALCIDIOL (25 [place] VITAMIN D3) (NG/ML) IN SER/PLAS 26.0 ng/mL Low 30.0-80.0 [facility] Comment on above: Result Comment: >80. 0 Toxicity possible Performed By: #### L [id number] #### [facility] ([facility]) [address] [facility] [place] [address] Orders Onlyon 03-10-2022 Orders Only [id number] Alexis Bartlett tt 1965 M Date Provider Department Center 03/10/20221975-JL [facility] Medical C No family history on file Normal [facility] SARS-COV-2 TMAon 03-10-2022 SARS-CoV-2 (COVID-19) RNA WADE+probe Ql (Unsp spec) Not detected Normal Not Detected [facility] Comment on above: Result Comment: Not [...] from SARS-CoV-2 isolated and purified from nasopharyngeal (RETAIL FIELD MERCHANDISER), oropharyngeal (OP), nasal swab, sputum, and bronchoalveolar lavage (BAL) specimens from patients with signs and symptoms of infection who are suspected of COVID-19. Results are for the identification of SARS-CoV-2 RNA. The SARS-CoV-2 RNA is generally detectable during the acute phase of infection. The Aptima SARS-CoV-2 Assay on the [employer]Mama and [employer]ama Fusion system is intended for use by laboratory personnel specifically instructed and trained in the operation of the [place] and [place] Fusion system. The Aptima SARS-CoV-2 assay is only for use under the Food and Drug Administration Emergency Use Authorization. Testing is limited to laboratories certified under the Clinical Laboratory Improvement Amendments of 1988 (CLIA), 42 U.S.C. ???263a, to perform high complexity tests. Performed By: #### L [id number] #### [facility] ([facility]) [address] [place] [address] Orders Onlyon 03-09-2022 Orders Only [id number] Alexis Bartlett tt 1965 M Date Provider Department Center 03/09/2022 FREYA GUAMAN [facility] No family history on file Normal [facility] *MRSA/MSSA DNA NASALon 03-04 *MRSA/MSSA DNA NASAL Clinical Report: (D) Specimen: NASAL SWAB Collected: 03/04/2022 12:14 Status: Final Last Updated: 03/04/2022 21:39 MSSA DNA (Final) Methicillin Susceptible Staphylococcus aureus DNA Detected MRSA DNA (Final) Negative Normal The [facility] Comment on above: Performed By: #### 3 1595 #### [facility] [address] [place] [address], [facility] APTTon 03-04-2022 aPTT Coag (Bld) [Time] 26.7 s Normal 25.0-35.0 The [facility] Comment on above: Result Comment: ALL [...] THIS PURPOSE. Performed By: #### 5 7307, 64142 #### [facility] [address] [place] [address], [facility] BASIC METABOLIC PANELon 09-0 -2021 Calcium [Mass/Vol] 8.9 mg/dL Normal 8.6-10.3 The [facility] Comment on above: Performed By: #### 0 0071 #### [facility] [address] [place] [address], [facility] Chloride [Moles/Vol] 105 mmol/L Normal 98-107 The [facility] Comment on above: Performed By: #### 0 0071 #### [facility] [address] [place] [address], [facility] CO2 [Moles/Vol] 26 mmol/L Normal 21-31 The [facility] Comment on above: Performed By: #### 0 0071 #### [facility] [address] [place] [address], [facility] Creatinine [Mass/Vol] 1.00 mg/dL Normal 0.70-1.30 The [facility] Comment on above: Performed By: #### 0 0071 #### [facility] [address] [facility] [place] [address], [facility] GFR/1.73 sq M.predicted among non-blacks MDRD (S/P/Bld) [Vol rate/Area] mL/min/{1.73_m2} Normal >60 The [facility] Comment on above: Result Comment: The [facility]'s estimated glomerular filtration rate (eGFR) will [...] individuals. Performed By: #### 0 0071 #### [facility] [address] Glucose [Mass/Vol] 95 mg/dL Normal 70-100 The [facility] Comment on above: Performed By: #### 0 0071 #### [facility] [address] Potassium [Moles/Vol] 4.9 mmol/L Normal 3.5-5.1 The [facility] Comment on above: Performed By: #### 0 0071 #### [facility] [address] Sodium [Moles/Vol] 138 mmol/L Normal 136-145 The [facility] Comment on above: Performed By: #### 0 0071 #### [facility] [address] Urea nitrogen [Mass/Vol] 15 mg/dL Normal 7-25 The [facility] Comment on above: Performed By: #### 0 0071 #### [facility] [address] CBC W/DIFFon 03-04-2022 ABS IMM GRANS 0.0 10*3/uL Normal 0.0-0.2 The [facility] Comment on above: Performed By: #### 5 3 #### [facility] [address] [place] [address], [facility] ABS NEUTROPHILS 6.7 10*3/uL Normal 1.6-7.6 The [facility] Comment on above: Performed By: #### 5 102 #### [facility] [address] [place] [address], [facility] Basophils (Bld) [#/Vol] 0.0 10*3/uL Normal 0.0-0.2 The [facility] Comment on above: Performed By: #### 5 0103 #### [facility] [address] [place] [address], [facility] Basophils/100 WBC (Bld) 0.4 % Normal 0.0-1.0 The [facility] Comment on above: Performed By: #### 5 0103 #### [facility] [address] [facility] [place] [address], [facility] Eosinophils (Bld) [#/Vol] 0.2 10*3/uL Normal 0.0-0.5 The [facility] Comment on above: Performed By: #### 5 0103 #### [facility] [address] [place] [address], [facility] Eosinophils/100 WBC (Bld) 2.0 % Normal 0.0-6.0 The [facility] Comment on above: Performed By: #### 5 0103 #### [facility] [address] Erythrocyte distribution width (RBC) [Ratio] 13.8 % Normal 11.5-15.0 The [facility] Comment on above: Performed By: #### 5 0103 #### [facility] [address] [facility] [address] Hematocrit (Bld) [Volume fraction] 48.0 % Normal 39.0-50.0 The [facility] Comment on above: Performed By: #### 5 3 #### [facility] [address] Hemoglobin (Bld) [Mass/Vol] 15.9 g/dL Normal 13.0-17.0 The [facility] Comment on above: Performed By: #### 5 3 #### [facility] [address] [facility] [place] [address], [facility] IMMATURE GRANS 0.3 % Normal 0.0-1.0 The [facility] Comment on above: Performed By: #### 3 #### [facility] [address] [place] [address], [facility] Lymphocytes (Bld) [#/Vol] 3.3 10*3/uL Normal 1.2-4.0 The [facility] Comment on above: Performed By: #### 3 #### [facility] [address] [facility] [place] [address], [facility] Lymphocytes/100 WBC (Bld) 29.7 % Normal 20.0-45.0 The [facility] Comment on above: Performed By: #### 102 #### [facility] [address] [facility] [place] [address], [facility] MCH (RBC) [Entitic mass] 29.8 pg Normal 27.0-33.0 The [facility] Comment on above: Performed By: #### 102 #### [facility] [address] [facility]. [address] MCHC (RBC) [Mass/Vol] 33.1 g/dL Normal 32.0-35.0 The [facility] Comment on above: Performed By: #### 102 #### [facility] [address] [facility] [place] [address], [facility] MCV (RBC) [Entitic vol] 90.1 fL Normal 82.0-98.0 The [facility] Comment on above: Performed By: #### 3 #### [facility] [address] [facility] [place] [address], [facility] Monocytes (Bld) [#/Vol] 0.8 10*3/uL Normal 0.1-1.0 The [facility] Comment on above: Performed By: #### 102 #### [facility] [address] [place] [address], [facility] MONOS 7.4 % Normal 5.0-12.0 The [facility] Comment on above: Performed By: #### 5 0103 #### [facility] [address] [facility] [place] [address], [facility] Neutrophils/100 WBC (Bld) 60.2 % Normal 40.0-72.0 The [facility] Comment on above: Performed By: #### 5 0103 #### [facility] [address] [place] [address], [facility] Nucleated RBC/100 WBC (Bld) [Ratio] 0 % Normal 0-0 The [facility] Comment on above: Performed By: #### 5 0103 #### [facility] [address] [place] [address], [facility] PLAT CNT 197 10*3/uL Normal 150-400 The [facility] Comment on above: Performed By: #### 5 0103 #### [facility] [address] RBC (Bld) [#/Vol] 5.33 10*6/uL Normal 4.20-5.70 The [facility] Comment on above: Performed By: #### 5 0103 #### [facility] [address] [place] [address], [facility] WBC (Bld) [#/Vol] 11.07 10*3/uL High 4.00-10.60 The [facility] Comment on above: Performed By: #### 5 0103 #### [facility] [address] PROTHROMBIN TIMEon 2 INR Coag (PPP) [Relative time] 0.97 {INR} Normal 0.91-1.16 The [facility] Comment on above: Result Comment: ACCC [...] CHEST 1995;108:231S-246S. Performed By: #### 5 7307, 17582 #### [facility] [address] [place] [address], [facility] PT Coag (PPP) [Time] 12.9 s Normal 12.3-14.8 [facility] Comment on above: Result Comment: ALL RESULTS MUST BE INTERPRETED WITH RESPECT TO BLOOD DRAWING ARTIFACT OR DILUTION ERROR OF ANTICOAGULANT AT THE TIME OF SAMPLING. Performed By: #### 5 7307, 34814 #### [facility] [address] [facility] [place] [address], [facility] TYPE AND CROSSMATCHon 2021 ABO INTERPRETATION A Normal [facility] Comment on above: Performed By: #### 6 2594 #### [facility] [address] [facility] [place] [address], [facility] RH INTERPRETATION Positive Normal The [facility] Comment on above: Performed By: #### 6 2594 #### [facility] [address] [facility] [place] [address], [place] TYPE AND SCREENon 03-04-2022 AB SCREEN Negative Normal [facility] Comment on above: Performed By: #### L [id number] #### [facility] ([facility]) [address] [place] [address] ABO group Nom (Bld) A Normal [facility] Comment on above: Performed By: #### L AB294 #### [facility] ([facility]) [address] [place] [address] RH TYPE IN BLOOD Positive Normal [facility] Comment on above: Performed By: #### L AB294 #### [facility] ([facility]) [address] [place] [address] URINALYSISon 03-04-2022 Appearance (U) CLEAR Normal CLEAR The [facility] Comment on above: Performed By: #### 1 0008 #### [facility] [address] [place] [address], [place] Bilirubin Ql (U) Negative Normal NEGATIVE The [facility] Comment on above: Performed By: #### 1 0008 #### [facility] [address] [place] [address], [place] Color (U) YELLOW Normal YELLOW The [facility] Comment on above: Performed By: #### 1 0008 #### [facility] [address] [place] [address], [place] EPIS NONE SEEN Normal FEW,OCC,NON E SEEN The [facility] Comment on above: Performed By: #### 1 0008 #### [facility] [address] [place] [address], [place] Glucose Ql (U) Negative Normal NEGATIVE The [facility] Comment on above: Performed By: #### 1 0008 #### [facility] [address] [place] [address], [place] Hemoglobin Ql (U) Negative Normal NEGATIVE The [facility] Comment on above: Performed By: #### 1 0008 #### [facility] [address] [place] [address], [place] KETONE Negative Normal NEGATIVE The [facility] Comment on above: Performed By: #### 1 0008 #### [facility] [address] [place] [address], [place] LEUK OTF Negative Normal NEGATIVE The [facility] Comment on above: Performed By: #### 1 0008 #### [facility] [address] [facility] [place] [address], [facility] MUCUS THREADS OCC Abnormal NONE SEEN The [facility] Comment on above: Performed By: #### 1 0008 #### [facility] [address] [facility] [place] [address], [facility] Nitrite Ql (U) Negative Normal NEGATIVE The [facility] Comment on above: Performed By: #### 1 0008 #### [facility] [address] [place] [address], [facility] pH (U) 5.5 [pH] Normal 5.0-8.0 The [facility] Comment on above: Performed By: #### 1 0008 #### [facility] [address] [place] [address], [facility] Protein Ql (U) Negative Normal NEGATIVE The [facility] Comment on above: Performed By: #### 1 0008 #### [facility] [address] [place] [address], [facility] RBC 0-2 Abnormal NONE SEEN The [facility] Comment on above: Performed By: #### 1 0008 #### [facility] [address] [place] [address], [facility] SPEC GRAV 1.020 Normal 1.015-1.020 The [facility] Comment on above: Performed By: #### 1 0008 #### [facility] [address] [place] [address], [facility] WBC UA 0-2 Abnormal NONE SEEN The [facility] Comment on above: Performed By: #### 1 0008 #### [facility] [address] [place], [place] [address] [place] [address] MRI LUMBAR SPINE WO CONTRAST on 01-28-2022 MRI LUMBAR SPINE WO CONTRAST [facility] Department of Radiology [address] [place] [address] [phone] Patient Name: RIOS BARTLETT : 1965 Sex: M Age: Race: White Pt. Location: 84 Patient Status: O Ordered Date: 01/07/2022 12:25:00 PM Completed Date: 01/28/2022 11:47 AM Requesting Provider: CHEIKH WALKER Attending Provider: Report Copy To: Signs & Symptoms: M54.16 Radiculopathy, lumbar region I10 History: Kajal c-spine hardware/L knee replacement Comments: Evaluate Exam: [...] identified. Electronically signed: Jairo Tapia. Transcribed by: [email or web address], User Resident: Electronically Signed by: JAIRO TAPIA @ 01/28/2022 03:00 PM Normal The [facility] Comment on above: Order Comment: Evalu [...] developed and its performance characteristic determined by [employer] and validated at [facility]. This test has not been FDA [...] for SARS Antigen by [facility] PERFORMED BY: [place] [address] PATHOLOGIST PECAN HULLER LEONA ALVAREZ M.D. Normal [facility] Comment on above: Performed By: #### S JOYCE COVID-19 SOHAIL #### [place] [id number] [facility] Sohail Ag Negativeon 11-04-19 Sohail Ag Negative Negative Normal Negative [facility] Comment on above: Result Comment: This is a duplicate Sohail SARS Antigen (HANY) result to be used for statistical tracking purpose only. PERFORMED BY: [place] [address] PATHOLOGIST PECAN HULLER LEONA ALVAREZ M.D. Performed By: #### S JOYCE COVID-19 SOHAIL #### [place] [id number] [facility] LUMBAR SPINE [address] [facility] LUMBAR SPINE 2 OR 3 S [facility] Department of Radiology [address] [place] [phone] Patient Name: RIOS BARTLETT : 1965 Sex: M Age: Race: White Pt. Location: Patient Status: D Ordered Date: 03/21/2021 1:15:00 PM Completed Date: 03/21/2021 01:11 PM Requesting Provider: DARON GOMEZ Attending Provider: TANYA NOVOA Report Copy To: Signs & Symptoms: M54.17 Radiculopathy, lumbosacral region I10 History: Kajal Comments: Exam: LUMBAR SPINE 2 OR 3 [...] abnormality. Electronically signed: Laurent Lopez. Transcribed by: [email or web address], User Resident: Electronically Signed by: LAURENT LOPEZ @ 03/22/2021 02:01 PM Normal The [facility] XR LUMBAR SPINE (2-3 VIEWS)o n [...] Jermaine Krishnamurthy MD 02/08/21 Final result Normal [facility] C-Reactive Proteinon 018 CRP mass conc 0.7 mg/dL Normal <0.9 [facility] Comment on above: Performed By: #### W SR, CRP ####[facility] [address] [place], [place] [phone] CNOVon 01-28-2018 CNOV Office Visit (ORTHCO) ----RIOS BARTLETT ([id number]) 1965 [facility] Time Provider Department01/28/18 8:40 AM HAMZAH HEMPHILL During your visit today, we recorded the following information about you: Weight Height 122.5 kg 1.753 Florencio Hemphill, DO 02/07/2018 6:54 PM Signednew Mateus Hemphill, DO 02/07/2018 6:54 PM SignedCONSULT ORTHOPAEDIC: KNEEPRIMARY CARE PHYSICIAN: Mary Kline MDREFERRING PROVIDER: Mary Kline MD[address] [place] [id number] AND PLANHPI: Rios is a 52-year-old male [...] year(s) interfering with activities which include 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,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, participating in family activities, enjoying hobbies,walking, rising [...] SignedFollow up as neededReferring Provider: MARY KLINE [[id number]]Allergies As of Date: 01/28/2018 Noted Allergy ReactionMORPHINE 01/28/2018 9 - ItchingDate Reviewed: 01/28/2018Reviewed by: Marc (Newton) NEWTON Mistry - Fully AssessedReason for Visit: Left Knee Pain [1208]Primary Visit Diagnosis:Left knee pain, unspecified chronicity [M25.562]Order(s):XR LEG FRONTAL HIP TO ANKLE MECHANICAL AXIS [6221683] Order #: [id number] FUTURE XR KNEE GENERAL 4V AP BOTH/PA BOTH/LAT/MERC LT [5184510] Order #: [id number] FUTURE C-REACTIVE PROTEIN (CRP) [SQCRP] Order #: [id number] FUTURE SED RATE WESTERGREN [SQWSR] Order #: [id number] FUTURE CONSULT TO PHYSICAL THERAPY [9032] Order #: [id number]: 1Prescriptions as of 01/28/2018 Sig: TRAMADOL 50 [...] your clinician: Follow up as neededEncounter Number: [id number] Status:Closed by PÉREZHAMZAH Cuong on 02/07/18 Normal [facility] PROGRESSon 01-28-2018 Protein mass conc HNO ID: [id number] thor: Hamzah BurnettphillipSerchintane: (none)Author Type: PhysicianType: Progress NotesFiled: 02/07/2018 6:54 PMNote Text:CONSULT ORTHOPAEDIC: KNEEPRIMARY CARE PHYSICIAN: ED Yun PROVIDER: Mary Kline MD[address] [place] [id number] AND PLANHPI: Rios is a 52-year-old male who presents for evaluation of hischronic left knee pain. 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, participating in familyactivities, enjoying hobbies, walking, rising [...] January 28, 2018 : 8:58 AM Normal [facility] Protein mass conc HNO ID: [id number] Author: Hamzah Hemphill Service: (none) Author Type: Physician Type: Progress Notes Filed: 02/07/2018 6:54 PM Note Text: new images Normal [facility] Protein mass conc HNO ID: [id number] thor: Stephanie Adams (Tech): (none)Author Type: TechnicianType: Progress NotesFiled: 01/28/2018 8:24 AMNote Text: Radiology Service Progress NotePATIENT NAME: Rios BartlettMRN: [id number] OF SERVICE: January 28, 2018TIME: 8:24 AMPATIENT [...] BY: Donita Sethi 2017 8:24 AM Normal [facility] Sed Rate Westergrenon 2017 Sed Rate Westergren 2 mm/hr Normal 0-15 [facility] Comment on above: Performed By: #### W SR, CRP ####[facility] [address] [place], [place] [phone] XR KNEE 4V AP/PA BOTH+LAT/ME R LTon [...] KOVACS MD on Jan 28 2018 2:08PM [id number] Normal [facility] XR LEG FRONTL [facility] AXISon 01-28-2018 GFR/1.73 sq M predicted among non-blacks MDRD vol rate/area (S/P/Bld) * * *Final Report* * *DATE OF EXAM: Jan 28 2018 8:22AM CRX [id number] - XR LEG FRONTL HIP-[facility] AXIS / REASON: Pain in left knee * * * * Physician Interpretation * * * * EXAMINATION: X[facility] AXISHISTORY: Pain in left knee .Patient/Technologist Provided History: PAIN LEFT KNEE AND SHINTECHNIQUE: XR LEG FRONTL HIP-ANKL [facility] AXIS Laterality: BILATERAL Number of different views (projections): 1 EACHCOMPARISON: NoneRESULT:Left total knee arthroplasty. No evidence of hardware failure or loosening. Moderate medial femorotibial compartment narrowing and mild lateral femorotibial compartment narrowing. Hip joint spaces appear maintained. Left biomechanical axis is 3 degrees varus and right biomechanical axis is 1 degree valgus.No other significant abnormality. -IMPRESSION:Mechanical axis as described.Entertainment Usher: MARCOS Transcribe Date/Time: Jan 28 2018 8:34ADictated by : ZACH HANSEN MDThis examination was interpreted and the report reviewed and electronically signed by: EDNA KOVACS MD on Jan 28 2018 9:48AM [id number] Normal [facility] XR KNEE LEFT STANDARDon 01-26 XR KNEE [...] Jr.igned by:Miles Mishra Jr., MD02/11/17Final result Normal [facility] Vital Signs Date Time Vital Sign Value Performing Clinician Ko elizabeth 12-16-2022 13:33-0400 Blood Pressure Location Edna NILL [facility] 12-16-2022 13:33-0400 Diastolic blood pressure 66 mm[Hg] Edna NILL [facility] 12-16-2022 13:33-0400 Heart rate 70 /min Edna NILL [facility] 12-16-2022 13:33-0400 Respiratory rate 18 /min Edna NILL [facility] 12-16-2022 13:33-0400 Systolic blood pressure 118 mm[Hg] Edna NILL [facility] 02-08-2021 10:49-0400 Body mass index (BMI) [Ratio] 42.33 kg/m2 Mary Kline MD Work Phone: [employer] Work Phone: 02-08-2021 10:49-0400 Body temperature 98.4 [degF] Mary Kline MD Work Phone: [employer] Work Phone: 02-08-2021 10:49-0400 Body weight 133.81 kg Mary Kline MD Work Phone: [employer] Work Phone: 02-08-2021 10:49-0400 Diastolic blood pressure 90 mm[Hg] Mary Kline MD Work Phone: [employer] Work Phone: 02-08-2021 10:49-0400 Heart rate 92 /min Mary Kline MD Work Phone: [employer] Work Phone: 02-08-2021 10:49-0400 Respiratory rate 18 /min Mary Kline MD Work Phone: [employer] Work Phone: 02-08-2021 10:49-0400 SaO2% (BldA) [Mass fraction] 94 % Mary Kline MD Work Phone: [employer] Work Phone: 02-08-2021 10:49-0400 Systolic blood pressure 119 mm[Hg] Mary Kline MD Work Phone: [employer] Work Phone: Encounters Encounter Date Encounter Type Care Provider Facility Start: 12-30-2022 End: 12-31-2022 ambulatory Edna GOODWIN Facility: [facility] Start: 12-30-2022 End: 12-30-2022 Patient encounter procedure Edna GOODWIN General Surgery [facility] [place] Start: 12-16-2022 End: 12-17-2022 ambulatory Edna GOODWIN Facility: [place] Start: 12-16-2022 End: 12-16-2022 Patient encounter procedure Edna GOODWIN General Surgery [facility] [place] Start: 11-04-2022 End: 11-05-[address] MARY KLINE . Facility:[facility] Start: 08-10-2022 End: 08-11-[address] MARY KLINE . Facility:[facility] Start: 08-03-2022 End: 08-04-[address] MARY KLINE . Facility:[facility] Start: 07-30-2022 End: 07-31-[address] MARY KLINE . Facility:[facility] Start: 03-27-2022 End: 03-27-2022 ambulatory CHEIKH WALKER [facility] Start: 03-14-2022 Evaluation and management of inpatient AMBROSIO LIANG [facility] Start: 03-13-2022 End: 03-14-2022 Evaluation and management of inpatient CHEIKH [place]GES[place] [facility] Start: 03-13-2022 End: 03-14-2022 Evaluation and management [facility] Start: 03-10-2022 End: 03-10-2022 [facility] Start: 01-28-2022 End: 01-29-2022 ambulatory MARY KLINE Facility:[facility] Start: 02-08-2021 Emergency department patient visit MARY M [facility] Start: 02-08-2021 End: 02-08-2021 Emergency department patient visit Mary Kline MD Work Phone: [facility] Comment on above: Acute exacerbation o f chronic low back pain (Primary Dx) Start: 01-28-2018 End: 02-08-2018 Patient encounter HAMZAH HEMPHILL [facility] Start: 02-11-2017 End: 02-12-2017 [facility] Procedures Date Procedure Procedure Detail Performing Clinician Start: 11-04-[address] MARY KLINE . Comment on above: Performed By: #### TSH, T4, FT3, CMP, LI PID #### [facility] [address] [place] [address] Dr. 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 Work Phone: Start: 06-28-2019 Uvulopalatopharyngoplasty Edna GOODWIN [...] 02-26-2021 Influenza vaccination Flu vaccine (# 1) [employer] Work Phone: Start: 2016 Shingles Vaccine (1 of 2) Shingles Vaccine (1 of 2) [employer] Phone: Start: 09-07-2011 Screening for malign ant neoplasm of colon Colon [facility]: Start: 2006 Lipid panel Lipid screen [facility] Work Phone: Start: 1985 DTaP/Tdap/Td vaccine (1 - Tdap) DTaP/Tdap/Td vaccine (1 - Tdap) [employer] Phone: Start: 1981 HIV screening HIV screen [facility] Work Phone: Start: 1966 Hepatitis C screening Hepatitis C sc reejustyna [employer] Phone: XR LUMBAR SPINE (2-3 VIEWS) XR LUMBAR SPINE (2-3 VIEWS) Imaging STAT 02/08/2021 12:10 PM EDT [employer] Work Phone: Immunizations Immunization Date Immunization Notes Care Provider Jenniffer lagos NEGATED: Highlighted row has not occurred!08-13-2021 influenza virus vaccine, unspecified formulation Edna GOODWIN General Surgery [place] Payers Date Payer Category Payer Medicare [id number] 2019 Unknown [id number] 2016 Unknown [id number] 1966 Unknown [id number] 2.16.8 [id number] 1966 Unknown [id number] 2.16.8 [id number] 1966 Unknown [id number] 2.16.84 [id number] 1966 Unknown [id number] 2.16.84 [id number] 1966 Unknown [id number] 2.16.84 [id number] 1966 Unknown [id number] 2.16.84 [id number] 1966 Unknown [id number] 2.16.8 [id number] 1966 Unknown [id number] 2.16.8 [id number] Social History Date Type Detail Facility Start: 02-08-2021 End: 12-16-2022 Tobacco smoking status WVIS Never smoker General Surg [facility] [place] Start: 02-08-2021 Tobacco use and exposure Never used [employer] Start: 1965 Sex Assigned At Not on file [employer] Work Phone: Exposure to SARS-CoV -2 (event) Not sure [employer] Tobacco smoking status Never Gener al Surgery [place] Sex Assigned At Male [facility] Functional Status Date Assessment Result Facility 12-16-2022 [...] vaccine, inactivated - Not Given Patient Refuses [facility] Comment on above: Result Comment: Elec [...] as tolerated Follow up in 4 weeks [facility] 03-14-2022 Note Orthopaedic Discharg e Summary Patient ID: Rios Bartlett [id number] y.o. 1965 Admit date: 03/13/2022 Discharge [...] at bedtime for constipation. ergocalciferol 1.25 MG (98924 UT) capsule Commonly known as: Vitamin D-2 [...] These medications were sent to [id number] - [place], [place] - [address] [facility] [address] [facility] [id number] acetaminophen 500 mg tablet acetaminophen 500 mg tablet cephalexin 500 mg capsule cholecalciferol 50 MCG (2000 UT) tablet docusate sodium 100 mg capsule docusate sodium 100 mg tablet ergocalciferol 1.25 MG (12147 UT) capsule methocarbamol 750 mg tablet ondansetron [...] Ambrosio Liang MD in 10-14 days at [facility] Orthopaedic Clinic [phone] Hospital Course: Rios Bartlett was admitted on 03/13/2022 and underwent the aforementioned procedure. Post-operatively, he had adequate pain control and physical therapy to be able to be discharged from the hospital. DVT prophylaxis consisted of Lovenox only while admitted and none on discharge . Signed: Ambrosio Liang MD 3:48 PM 04/02/2022 [facility] 03-14-2022 Note This report has been cancelled. [facility] 03-14-2022 Note Pt to discharge home with a rolling walker script. [facility] 03-14-2022 Note Physical Therapy Physical Therapy [...] stair negotiation at home 03/14/22 03/28/22 -- [facility] 03-14-2022 Note Occupational Therapy Occupational Therapy [...] Level of Function Prior Function Level of Mineral: Independent with ADLs and functional transfers Vocational: [...] Eating meals?: None (Independent) Total Score OT [facility]: 21 ---- (more content not included)... [facility] 03-14-2022 Note Orthopedic Progress Note Status post Procedure(s) with comments: L4-L5 DECOMPRESSION WITH INTERBODY FUSION (Left) - C-ARM, SYNTHES, KAMALJIT TABLE, SSEP#[id number], REPS NOTIFIED RP. SUBJECTIVE: Patient seen and [...] MD Orthopaedic Surgery Resident, PGY-IV Personal pager: [phone] 03/14/2022 [facility] 03-13-2022 Note Patient: Rios holloway Procedure Summary Date: 03/13/22 Room / Location: [facility] OPERATING ROOM 12 / [facility] Operating Room Anesthesia Start: 734 Anesthesia [...] Hydration status: acceptable No notable events documented. [facility] 03-13-2022 Note Airway Date/Time: 03/13/2022 7:43 AM Urgency: elective Airway not difficult (done by medical student lawrence aguirre MS3) General Information and Staff Patient location during procedure: OR Anesthesiologist: Sara Felder MD Resident/TRANSFER AGENT/KRYSTAL: KRYSTAL Thompson Performed: other anesthesia staff Indications and Patient Condition Indications for airway management: anesthesia Spontaneous Ventilation: absent Sedation level: deep Preoxygenated: yes Mask difficulty assessment: 3 - difficult mask (inadequate, unstable or two providers) +/- NMBA Final Airway Details Final airway type: endotracheal airway Successful airway: ETT Cuffed: yes Successful intubation technique: video laryngoscopy Endotracheal tube insertion site: oral Blade: NXE Blade size: #4 ETT size (mm): 8.0 Cormack-Lehane Classification: grade I - full view of glottis Placement verified by: chest auscultation and capnometry Measured from: lips ETT to lips (cm): 23 Number of attempts at approach: 1 Number of other approaches attempted: 0 Additional Comments Big neck.2 hand BMV with oral airway [facility] 03-13-2022 Note Patient: Rios holloway Procedure Information Date/Time: 03/13/2230 Procedure: L4-L5 DECOMPRESSION WITH INTERBODY FUSION (Spine Lumbar) - C-ARM, SYNTHES, KAMALJIT TABLE, SSEP#[id number], REPS NOTIFIED RP. Location: [facility] OPERATING ROOM 12 / [facility] Operating Room Surgeons: Cheikh Walker MD [...] consented to blood products. Additional Equipment Requests [facility] Evaluation + Plan note Future Appointments Appointment Date:12/30/2022 02:40:00 PM Scheduled Provider:Edna GOODWIN MD Location:[facility] Appointment Type: Procedure 30 General Surgery [facility] Evaluation note Diagnosis Acute exacerbation of chronic low back pain- Primary documented in this encounter [employer] Phone: Hospital course Narrative No data available for this section General Surgery [facility] Hospital Discharge instructions* Attachments The following attachments cannot be sent through Care Everywhere. * Low Back Pain: Exercises (Korean) * Back Pain (Korean) [facility] Hospital Discharge instructions No data available for this section General Surgery [facility] Progress note No data available for this section General Surgery [facility] Summary Purpose Family History No Family History Records FoundNo Family History Records FoundNo Family History Records FoundNo Family History Records FoundNo Family History Records FoundNo Family History Records FoundNo Family History Records FoundNo Family History Records Found Advance Directives No Advanced Directives Records FoundDocuments on File Type Date 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 ACP-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 Directive 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 Additional Source Comments (unrecognized sect ion and content) No Status Records FoundNo Status Records FoundNo Status Records FoundNo Status Records FoundNo Status Records FoundNo Status Records FoundNo Status Records FoundNo Status Records Found INFORMATION SOURCE (unrecogn ized section and content) DATE CREATED AUTHOR 12/22/2017 Elle fernando DATE CREATED AUTHOR AUTHOR'S ORGANIZ ATION 02/09/2018 [facility] DATE CREATED AUTHOR AUTHOR'S ORGANIZ ATION 02/09/2021 [facility] DATE CREATED AUTHOR AUTHOR'S ORGANIZ ATION 12/05/2021 [facility] DATE CREATED AUTHOR AUTHOR'S ORGANIZ ATION 03/05/2022 [facility] DATE CREATED AUTHOR AUTHOR'S ORGANIZ ATION 05/08/[address] [facility] DATE CREATED AUTHOR AUTHOR'S ORGANIZ ATION 11/08/2022 [facility] DATE CREATED AUTHOR AUTHOR'S ORGANIZ ATION 06/26/2023 [facility] Reason for Visit (unrecogniz ed section and content) Reason Comments Back Pain pt states he has chr onic low back pain, states the pain has gotten worse in the past 2 days with some increased activity. Pt states he has an appointment with his ortho , in [place] on 02/21 Ordered Prescriptions (unrec ognized section [...] Personnel Name: Mary Kline MD Address: Address: [address] [place] [id number] [[email or web address]] Personnel Name: Mary Kline MD Address: Address: [address] [place] [address] FOR RECORDS PERTAINING TO PATIENTS WHO ARE [...] BE BASED ON THE PRIMARY CLINICAL RECORDS. [facility] [email or web address]. provides no warranty or guarantee of the accuracy or completeness of information in this document.
== END 2024-08-04 09:57 | disposition home or self-care (01) ==
LOC: CT 09:56
PROVIDERS: PCP Family Medicine; Visit Provider Family Medicine
DX: G47.30 Sleep apnea, unspecified (principal); J32.9 Chronic sinusitis, unspecified; J34.2 Deviated nasal septum
CPT/HCPCS: 70486

== ENCOUNTER 2024-09-06 16:26 | Outpatient (OUT) | payer OTHER, SELFPAY ==
--- OUTSIDE RECORDS SUMMARY | 2024-09-06 16:34 | XMS_ITS | CCD ---
Author Organization [facility] Care Team Providers Care Casino Manager Name Role Phone OLIVIA ZAMAN Unavailable Unavailable MARY KLINE Unavailable Unavailable OLIVIA ZAMAN Unavailable Unavailable MARY KLINE Unavailable Unavailable Mary Kline MD Primary Care Provider [phone] MARY KLINE Primary Care Unavailable MARY KLINE Primary Care Unavailable MARY KLINE Referring Unavailable ELGAFY, CHEIKH K Admitting Unavailable ELGAFY, CHEIKH K Attending Unavailable ELGAFY CHEIKH Attending Unavailable CHARLSDEBY Referring Unavailable ELGAFY, CHEIKH Referring Unavailable ELGAFY, CHEIKH Admitting Unavailable ELGAFY, CHEIKH Attending Unavailable HOY ., DR HERNANDEZ Admitting Unavailable HOY ., DR HERNANDEZ Attending Unavailable HOY ., DR HERNANDEZ Primary Care Unavailable HOY ., DR HERNANDEZ Consulting Unavailable HOY ., DR HERNANDEZ Admitting Unavailable HOY ., DR HERNANDEZ Attending Unavailable HOY ., DR HERNANDEZ Primary Care Unavailable HOY ., DR HERNANDEZ Consulting Unavailable OLIVIA BECKER Consulting Unavailable HOY ., DR HERNANDEZ Admitting Unavailable HOY ., DR HERNANDEZ Attending Unavailable HOY ., DR HERNANDEZ Primary Care Unavailable HOY ., DR HERNANDEZ Consulting Unavailable HOY ., DR HERNANDEZ Admitting Unavailable HOY ., DR HERNANDEZ Attending Unavailable HOY ., DR HERNANDEZ Primary Care Unavailable LEYDIY ., DR HERNANDEZ Consulting Unavailable Mary Kline Primary Care Physician [phone] Todd GOODWIN Attending Unavailable Todd GOODWIN Attending Unavailable Mary Kline MD Primary Care Provider [phone] LONDON CARLSON Attending Unavailable MARY KLINE Primary Care Unavailable Allergies Allergy Classification Reported Allergen(s) Allergy Type Date of Onset Reaction(s) Facility Opioid Agonists (1 source) Morphine Drug Allergy 02-23-2018 [facility] (7 sources) Morphine; Translations: [MORPHINE] Drug Allergy 01-28-2018 Itching [facility] Repository Medications Current Medications Medication Drug [...] source) Opioid Agonist Start: 02-08-2021 End: 02-11-2021 HYDROcodone-acetam inophen (NORCO) 5-325 MG per tablet Indications: Acute [...] spasm) 12 tablet 0 02/08/2021 02/12/2021 Active diazePAM 10 mg oral tablet (1 source) Benzodiazepine Start: 01-17-2018 End: 08-08-2024 take 1 tablet by mouth every hour diazePAM (VALIUM) 10 mg tablet Indications: Left knee pain, unspecified chronicity TAKE 1 TABLET BY MOUTH 1 HOUR PRIOR TO MRI 0 01/17/2018 08/08/2024 Discontinued (Course of therapy completed) diclofenac sodium 50 mg delayed release oral [...] tablet 3 02/23/2018 02/08/2021 Discontinued (LIST CLEANUP) esomeprazole 20 mg / naproxen 375 mg delayed release oral tablet (1 source) Proton Pump Inhibitor, Nonsteroidal Anti-inflammatory Drug Start: 10-08-2017 End: 08-08-2024 take 1 tablet by mouth twice daily before mealtime VIMOVO 375-20 mg TbID Indications: Left knee pain, unspecified chronicity Take 1 tablet by mouth twice daily before meals. 0 10/08/2017 08/08/2024 Discontinued (Course of therapy completed) febuxostat 40 mg oral tablet (1 source) Xanthine Oxidase Inhibitor Start: 01-19-2018 End: 08-08-2024 take 1 tablet by mouth once daily ULORIC 40 mg tab Indications: Left knee pain, unspecified chronicity Take 40 mg by mouth once daily. 11 01/19/2018 08/08/2024 Discontinued (Course of therapy completed) Ozempic 2 mg/3 mL (0.25 mg or 0.5 mg dose) subcutaneous solution (1 source) Start: 12-16-2022 inject 0.5 mg by subcutaneous injection every week Ozempic 2 mg/3 mL (0.25 mg or 0.5 mg dose) subcutaneous solution 0.5 mg, SubCutaneous, qWeek, Refills(s) 0 Start Date: 12/16/22 Status: Ordered traMADol hydrochloride 50 mg oral tablet (1 source) Opioid Agonist Start: 01-03-2018 End: 08-08-2024 take 1-2 tablets by mouth four times daily as needed traMADol (ULTRAM) 50 mg tablet Indications: Left knee pain, unspecified chronicity TAKE 1 TO 2 TABLETS BY MOUTH 4 TIMES A DAY NEEDED 0 01/03/2018 08/08/2024 Discontinued (Course of therapy completed) Completed/Discontinued Medications Medication Drug Class(es) Dates Sig (Normalized) Sig (Original) methylPREDNISolone 125 mg injection (1 source) Corticosteroid Start: End: methylPREDNISolone sodium (SOLU-MEDROL) injection 60 mg Problems [...] unspecified; Translations: [HYPERLIPIDEMIA UNSPECIFIED] Onset: 11-07-2022 Chronic Genitourinary symptoms and ill-defined conditions (2 sources) Nocturia; Translations: [Nocturia] Onset: 08-04-2024 08-04-2024 Episodic Gout and other crystal arthropathies (2 sources) [...] Onset: 02-11-2017 Chronic Other connective tissue disease (1 source) Artificial knee joint present; Translations: [Presence of left artificial knee joint] Onset: 09-07-2017 01-28-2018 Chronic Other connective tissue disease (2 sources) Foot pain 09-18-2016 Episodic Other connective tissue disease (1 source) Disease suspected; Translations: [Other symptoms and signs involving the nervous system] 08-04-2024 Episodic Other connective tissue disease (1 source) Other symptoms and signs involving the nervous system; Translations: [Suspected sleep apnea] Onset: 08-04-2024 Episodic Other hereditary and degenerative nervous system conditions (1 source) Restless legs; Translations: [Restless legs syndrome] 08-04-2024 Chronic Other hereditary and degenerative nervous system conditions (1 source) Restless legs syndrome; Translations: [RLS (restless legs syndrome)] Onset: 08-04-2024 Chronic Other lower respiratory disease (2 sources) Snoring; Translations: [SNORING] Onset: 08-14-2022 Episodic Other lower respiratory disease (5 sources) Dyspnea, unspecified; Translations: [DYSPNEA UNSPECIFIED] Onset: 08-05-2022 Episodic Other lower respiratory disease (1 source) Snoring; Translations: [Snoring] 08-04-2024 Episodic Other lower respiratory disease (1 source) Apnea; Translations: [Apnea, not elsewhere classified] 08-04-2024 Episodic Other lower respiratory disease (1 source) Apnea, not elsewhere classified; Translations: [Witnessed episode of apnea] Onset: 08-04-2024 Episodic Other male genital disorders (1 source) Disorder of prostate, unspecified; Translations: [DISORDER OF PROSTATE UNSPECIFIED] Onset: 11-07-2022 Episodic Other nervous system disorders (2 sources) Neuropathy 08-08-2021 Chronic Other nervous system disorders (1 source) Chronic pain; Translations: [Other chronic pain] Onset: 09-13-2017 01-28-2018 Chronic Other non-traumatic joint disorders (1 source) Ankylosis of joint; Translations: [Ankylosis, unspecified joint] Onset: 01-27-2018 01-28-2018 Chronic Other non-traumatic joint disorders (2 sources) Knee [...] sources) Pain; Translations: [Pain] Onset: 03-27-2022 Episodic Residual codes; unclassified (1 source) Frequent night waking; Translations: [Insomnia, unspecified] 08-04-2024 Episodic Residual codes; unclassified (1 source) Insomnia, unspecified; Translations: [Frequent nocturnal awakening] Onset: 08-04-2024 Episodic Spondylosis; intervertebral disc disorders; other back problems (5 sources) Cervical spondylosis; Translations: [Prolapsed lumbar intervertebral disc] Onset: 01-27-2018 08-08-2021 Chronic Past or Other Problems Problem Classification Problem Date Documented Da te Episodic/Chronic Other connective tissue disease (1 source) Spasm; Translations: [Cramp and spasm] Onset: 09-07-2017 01-28-2018 Episodic Other connective tissue disease (1 source) Pain in left lower limb; Translations: [Pain in left leg] Onset: 09-07-2017 01-28-2018 Episodic Other connective tissue disease (1 source) Pain of left lower leg; Translations: [Pain in left lower leg] Onset: 09-13-2017 01-28-2018 Episodic Other lower respiratory disease (1 source) Chronic cough; Translations: [CHRONIC COUGH] Onset: 08-02-2022 Episodic Other non-traumatic joint disorders (1 source) Pain in left knee; Translations: [Pain in left knee] Onset: 02-11-2017 Episodic Spondylosis; intervertebral disc disorders; other back problems (6 sources) Chronic low back pain; Translations: [Low back pain] Onset: 09-13-2017 Episodic Results Test Name Value Interpretation Reference Range Facility Physician Referralon 023 Physician Referral [id number] [facility] RAD - CT Reporton 06-25-2023 RAD - CT Report [id number] [facility] Ambulatory Visit Summaryon 0 12-30-2022 Ambulatory Visit Summary RIOS BARTLETT :1965 Visit Date:12/30/2022 Ambulatory Visit Instructions Your Diagnosis Skin tags, multiple acquired Your Care Team Attending Physician - BUDDY TRAN, Todd Maher Primary Care Physician - Raisa TRAN, Mary This Is Your Medications List [...] depressive disorder Skin tags, multiple acquired Normal [facility] General Surgery Office/Clini c Noteon 12-30-2022 General [...] inactivated - Not Given Patient Refuses Normal [facility] Comment on above: Result Comment: Elec tronically Signed By: BUDDY TRAN, Todd Maher\.br\Date and Time Signed: 12/30/22 15:11 EDT Pre-Certification Formon Pre-Certification Form [id number]:127 Normal [facility] Ambulatory Visit Summaryon 0 12-16-2022 Ambulatory Visit Summary RIOS BARTLETT :1965 Visit Date:12/16/2022 Ambulatory Visit Instructions Your Care Team Attending Physician - BUDDY TRAN, Todd Maher Primary Care Physician - Mary Kline [...] Wednesday 2:40 PM EDT With: BUDDY TRAN, Todd Maher Where: General Surgery [facility] [place] Normal [facility] CBC AUTO DIFFon 11-04-2022 BASO # 0.0 103/ul Normal 0.0-0.1 [facility] Comment on above: Performed By: #### T SH, T4, FT3, CMP, LIPID #### [facility] [address] [place] [address] Dr. Ayush Rice Basophils/100 WBC (Bld) 0.3 % Normal 0.2-2.0 [facility] Comment on above: Performed By: #### T SH, T4, FT3, CMP, LIPID #### [facility] [address] [place] [address] Dr. Ayush Rice EO # 0.2 103/ul Normal 0.0-0.7 [facility] Comment on above: Performed By: #### T SH, T4, FT3, CMP, LIPID #### [facility] [address] [place] [address] Dr. Ayush Rice Eosinophils/100 WBC (Bld) 1.5 % Normal 0.9-7.0 [facility] Comment on above: Performed By: #### T SH, T4, FT3, CMP, LIPID #### [facility] [address] [place] [address] Dr. Ayush Rice Erythrocyte distribution width (RBC) [Ratio] 14.2 % Normal 11.0-15.0 [facility] Comment on above: Performed By: #### T SH, T4, FT3, CMP, LIPID #### [facility] [address] [place] [address] Dr. Ayush Rice Hematocrit (Bld) [Volume fraction] 49.3 % Normal 42.0-54.0 [facility] Comment on above: Performed By: #### T SH, T4, FT3, CMP, LIPID #### [facility] [address] [place] [address] Dr. Ayush Rice Hemoglobin (Bld) [Mass/Vol] 16.2 g/dL Normal 14.0-18.0 [facility] Comment on above: Performed By: #### T SH, T4, FT3, CMP, LIPID #### [facility] [address] [place] [address] Dr. Ayush Rice IG # 0.03 10e3/ul Normal 0.00-0.03 [facility] Comment on above: Performed By: #### T SH, T4, FT3, CMP, LIPID #### [facility] [address] [place] [address] Dr. Ayush Rice IG % 0.3 % Normal 0.0-0.5 [facility] Comment on above: Performed By: #### T SH, T4, FT3, CMP, LIPID #### [facility] [address] [place] [address] Dr. Ayush Rice LYMPH # 2.6 103/ul Normal 1.2-3.8 [facility] Comment on above: Performed By: #### T SH, T4, FT3, CMP, LIPID #### [facility] [address] [place] [address] Dr. Ayush Rice Lymphocytes/100 WBC (Bld) 24.9 % Normal 20.5-60.0 [facility] Comment on above: Performed By: #### T SH, T4, FT3, CMP, LIPID #### [facility] [address] [place] [address] Dr. Ayush Rice MANUAL DIFF REQ NO Normal [facility] Comment on above: Performed By: #### T SH, T4, FT3, CMP, LIPID #### [facility] [address] [place] [address] Dr. Ayush Rice MCH (RBC) [Entitic mass] 30.1 pg Normal 25.9-34.0 [facility] Comment on above: Performed By: #### T SH, T4, FT3, CMP, LIPID #### [facility] [address] [place] [address] Dr. Ayush Rice MCHC (RBC) [Mass/Vol] 32.9 g/dL Normal 29.9-35.2 [facility] Comment on above: Performed By: #### T SH, T4, FT3, CMP, LIPID #### [facility] [address] [place] [address] Dr. Ayush Rice MCV (RBC) [Entitic vol] 91.5 fL Normal 80.0-94.0 [facility] Comment on above: Performed By: #### T SH, T4, FT3, CMP, LIPID #### [facility] [address] [place] [address] Dr. Ayush Rice MONO # 0.8 103/ul Normal 0.3-0.8 [facility] Comment on above: Performed By: #### T SH, T4, FT3, CMP, LIPID #### [facility] [address] [place] [address] Dr. Ayush Rice Monocytes/100 WBC (Bld) 7.4 % Normal 1.7-12.0 [facility] Comment on above: Performed By: #### T SH, T4, FT3, CMP, LIPID #### [facility] [address] [place] [address] Dr. Ayush Rice NEUT # 7.0 103/ul Critically high 1.4-6.5 [facility] Comment on above: Performed By: #### T SH, T4, FT3, CMP, LIPID #### [facility] [address] [place] [address] Dr. Ayush Rice Neutrophils/100 WBC (Bld) 65.6 % Normal 43.0-75.0 [facility] Comment on above: Performed By: #### T SH, T4, FT3, CMP, LIPID #### [facility] [address] [place] [address] Dr. Ayush Rice Platelet mean volume (Bld) [Entitic vol] 8.5 fL Critically low 9.5-13.5 [facility] Comment on above: Performed By: #### T SH, T4, FT3, CMP, LIPID #### [facility] [address] [place] [address] Dr. Ayush Rice PLT 232 103/ul Normal 150-450 [facility] Comment on above: Performed By: #### T SH, T4, FT3, CMP, LIPID #### [facility] [address] [place] [address] Dr. Ayush Rice RBC 5.39 106/ul Normal 4.70-6.10 [facility] Comment on above: Performed By: #### T SH, T4, FT3, CMP, LIPID #### [facility] [address] [address] [address] Ayush Rice WBC 10.6 103/ul Normal 4.0-11.0 [facility] Comment on above: Performed By: #### T SH, T4, FT3, CMP, LIPID #### [facility] [address] [place] [address] Dr. Ayush Rice FREE T3on 11-04-2022 FREE T3 2.93 pg/mlL Normal 2.18-3.98 [facility] Comment on above: Performed By: #### T SH, T4, FT3, CMP, LIPID #### [facility] [address] [place] [address] Dr. Ayush Rice GLYCOHEMOGLOBIN A1Con 2022 ADA RECOMMENDATION SEE BELOW Normal [facility] Comment on above: Result Comment: ADA RECOMMENDED LIMIT 4.0 - 6.0 ADA THERAPEUTIC TARGET < 7.0 ACTION SUGGESTED > 7.0 Performed By: #### A 1C #### [facility] [address] [place] [address] Dr. Ayush Rice Glucose [Mass/Vol] 126 mg/dL Normal [facility] Comment on above: Performed By: #### A 1C #### [facility] [address] [place] [address] Dr. Ayush Rice HbA1c (Bld) [Mass fraction] 6.0 % Normal 4.5-6.2 [facility] Comment on above: Performed By: #### A 1C #### [facility] [address] [place] [address] Dr. Ayush Rice LIPID PROFILEon 11-04-2022 CHOL-HDL RATIO NORM SEE BELOW Normal [facility] Comment on above: Result Comment: 3.3 - 4.4 LOW RISK 4.4 - 7.1 AVERAGE RISK 7.1 - 11.0 MODERATE RISK >11.0 HIGH RISK Performed By: #### T SH, T4, FT3, CMP, LIPID #### [facility] [address] [address] [address] Ayush Rice Cholesterol [Mass/Vol] 190 mg/dL Normal <=200 [facility] Comment on above: Performed By: #### T SH, T4, FT3, CMP, LIPID #### [facility] [address] [address] [address] Ayush Rice Cholesterol in HDL [Mass/Vol] 39 mg/dL Critically low 40-60 [facility] Comment on above: Performed By: #### T SH, T4, FT3, CMP, LIPID #### [facility] [address] [place] [address] Dr. Ayush Rice Cholesterol in LDL [Mass/Vol] 122.0 mg/dL Normal [facility] Comment on above: Performed By: #### T SH, T4, FT3, CMP, LIPID #### [facility] [address] [address] [address] Ayush Rice Cholesterol.total/ Cholesterol in HDL [Mass ratio] 4.9 {ratio} Normal [facility] Comment on above: Performed By: #### T SH, T4, FT3, CMP, LIPID #### [facility] [address] [address] [address] Ayush Rice HDL NORMAL > or = 60 mg/dl - LO W CARDIOVASCULAR RISK <40 mg/dl - HIGH CARDIOVASCULAR RISK Normal [facility] Comment on above: Performed By: #### T SH, T4, FT3, CMP, LIPID #### [facility] [address] [place] [address] Dr. Ayush Rice LDL CALC NORMAL SEE BELOW Normal [facility] Comment on above: Result Comment: <100 mg/dl OPTIMAL 100 - 129 mg/dl NEAR OR ABOVE OPTIMAL 130 - 159 mg/dl BORDERLINE HIGH 160 - 189 mg/dl HIGH >190 mg/dl VERY HIGH Performed By: #### T SH, T4, FT3, CMP, LIPID #### [facility] [address] [place] [address] Dr. Ayush Rice Triglyceride [Mass/Vol] 145 mg/dL Normal <=150 [facility] Comment on above: Performed By: #### T SH, T4, FT3, CMP, LIPID #### [facility] [address] [place] [address] Dr. Ayush Rice VLDL CALC 29.0 mg/dL Normal [facility] Comment on above: Performed By: #### T SH, T4, FT3, CMP, LIPID #### [facility] [address] [place] [address] Dr. Ayush Rice PROF 14(COMP METB)on 023 Albumin [Mass/Vol] 3.8 g/dL Normal 3.4-5.[address] [facility] Comment on above: Performed By: #### T SH, T4, FT3, CMP, LIPID #### [facility] [address] [place] [address] Dr. Ayush Rice Albumin/Globulin [Mass ratio] 1.1 {ratio} Normal [facility] Comment on above: Performed By: #### T SH, T4, FT3, CMP, LIPID #### [facility] [address] [place] [address] Dr. Ayush Rice ALP [Catalytic activity/Vol] 103 U/L Normal 46-116 [facility] Comment on above: Performed By: #### T SH, T4, FT3, CMP, LIPID #### [facility] [address] [address] [address] Ayush Rice ALT [Catalytic activity/Vol] 40 U/L Normal 16-63 [facility] Comment on above: Performed By: #### T SH, T4, FT3, CMP, LIPID #### [facility] [address] [place] [address] Dr. Ayush Rice Anion gap [Moles/Vol] 12.4 mmol/L Normal [facility] Comment on above: Performed By: #### T SH, T4, FT3, CMP, LIPID #### [facility] [address] [address] [address] Ayush Rice AST [Catalytic activity/Vol] 28 U/L Normal 15-37 [facility] Comment on above: Performed By: #### T SH, T4, FT3, CMP, LIPID #### [facility] [address] [place] [address] Dr. Ayush Rice Bilirubin [Mass/Vol] 0.9 mg/dL Normal 0.2-1.0 [facility] Comment on above: Performed By: #### T SH, T4, FT3, CMP, LIPID #### [facility] [address] [place] [address] Dr. Ayush Rice Calcium [Mass/Vol] 9.1 mg/dL Normal 8.5-10.[address] [facility] Comment on above: Performed By: #### T SH, T4, FT3, CMP, LIPID #### [facility] [address] [place] [address] Dr. Ayush Rice Chloride [Moles/Vol] 107 mmol/L Normal 98-107 [facility] Comment on above: Performed By: #### T SH, T4, FT3, CMP, LIPID #### [facility] [address] [place] [address] Dr. Ayush Rice CO2 [Moles/Vol] 27.9 mmol/L Normal 21.0-32.0 [facility] Comment on above: Performed By: #### T SH, T4, FT3, CMP, LIPID #### [facility] [address] [place] [address] Dr. Ayush Rice Creatinine [Mass/Vol] 1.18 mg/dL Normal 0.70-1.30 [facility] Comment on above: Performed By: #### T SH, T4, FT3, CMP, LIPID #### [facility] [address] [place] [address] Dr. Ayush Rice EGFR-AF GREENLANDIC >60 Normal >=60 [facility] Comment on above: Performed By: #### T SH, T4, FT3, CMP, LIPID #### [facility] [address] [place] [address] Dr. Ayush Rice EGFR-NON AF GREENLANDIC >60 Normal >=60 [facility] Comment on above: Performed By: #### T SH, T4, FT3, CMP, LIPID #### [facility] [address] [place] [address] Dr. Ayush Rice Globulin (S) [Mass/Vol] 3.4 g/dL Normal [facility] Comment on above: Performed By: #### T SH, T4, FT3, CMP, LIPID #### [facility] [address] [address] [address] Ayush Rice Glucose [Mass/Vol] 106 mg/dL Normal 74-106 [facility] Comment on above: Performed By: #### T SH, T4, FT3, CMP, LIPID #### [facility] [address] [place] [address] Dr. Ayush Rice Potassium [Moles/Vol] 4.3 mmol/L Normal 3.5-5.1 [facility] Comment on above: Performed By: #### T SH, T4, FT3, CMP, LIPID #### [facility] [address] [place] [address] Dr. Ayush Rice Protein [Mass/Vol] 7.2 g/dL Normal 6.4-8.2 [facility] Comment on above: Performed By: #### T SH, T4, FT3, CMP, LIPID #### [facility] [address] [place] [address] Dr. Ayush Rice Sodium [Moles/Vol] 143 mmol/L Normal 136-145 [facility] Comment on above: Performed By: #### T SH, T4, FT3, CMP, LIPID #### [facility] [address] [place] [address] Dr. Ayush Rice Urea nitrogen [Mass/Vol] 15.0 mg/dL Normal 7.0-18.0 [facility] Comment on above: Performed By: #### T SH, T4, FT3, CMP, LIPID #### [facility] [address] [place] [address] Dr. Ayush Rice Urea nitrogen/Creatinin e [Mass ratio] 12.7 mg/mg Normal [facility] Comment on above: Performed By: #### T SH, T4, FT3, CMP, LIPID #### [facility] [address] [address] [address] Ayush Rice T4on 11-04-2022 T4 [Mass/Vol] 7.30 ug/dL Normal 4.50-12.[address] [facility] Comment on above: Performed By: #### T SH, T4, FT3, CMP, LIPID #### [facility] [address] [address] [address] Ayush Rice TSHon 11-04-2022 TSH 1.301 uIU/mL Normal 0.358-3.[address] [facility] Comment on above: Performed By: #### T SH, T4, FT3, CMP, LIPID #### [facility] [address] [place] [address] Dr. yAush Rice VITAMIN D 25 OHon 11-04-2022 VIT D 25-OH 20.0 ng/mL Normal [facility] Comment on above: Performed By: #### T SH, T4, FT3, CMP, LIPID #### [facility] [address] [place] [address] Dr. Ayush Rice VIT D RANGES SEE BELOW Normal [facility] Comment on above: Result Comment: <20 ng/mL Vit D deficient 20 - <30 ng/mL Vit D insufficient 30 - 100 ng/mL Vit D sufficient >100 ng/mL Potential Toxicity Performed By: #### T SH, T4, FT3, CMP, LIPID #### [facility] [address] [place] [address] Dr. Ayush Rice ECHOCARDIO M/2D COMPLETEon 0 08-03-2022 ECHOCARDIO M/2D COMPLETE Patient: RIOS BARTLETT Exam Date: 08/03/2022 : 1965 Gender:M Ordering : DR MARY KLINE . Admission #: [id number] Family : Order #: [id number] CLICK HERE TO VIEW EXAM ECHOCARDIOGRAM REPORT [...] Ma M.D. on 08/04/2022 at 19:15 Normal [facility] NM STRESS/REST MULTIon 08-03 NM STRESS/REST MULTI Patient: RIOS BARTLETT Exam Date: 08/03/2022 : 1965 Gender:M Ordering : DR MARY KLINE . Admission #: [id number] Family : Order #: [id number] CLICK HERE TO VIEW EXAM RADIOLOGY REPORT [...] Marie MD on 08/10/2022 at 13:50 Normal [facility] XR CHEST 2 Von 07-30-2022 [...] by: OLIVIA BECKER Date: 2022-07-30 17:15 Normal [facility] XR KNEE LT 4V or [...] by: OLIVIA BECKER Date: 2022-07-30 17:16 Normal [facility] Office Visiton 03-27-2022 Follow-up visit [id number] Alexis Bartlett tt 1965 M Date Provider Department Center 03/27/2022 Lora-CHEIKH WALKER MP ORTHO MPORTHO No family history on file Level of Service:24237 DC POSTOP FOLLOW UP VISIT RELATED TO ORIGINAL PX Reason for Visit and Comments: Pain [136] Normal [facility] 36on 03-18-2022 36 Pt was informed and verbalized understanding. Normal [facility] 36on 03-17-2022 36 Pt is complaining he is having a hard time with pain control. Most of the reported pain is in both of his legs and described as burning pain. Pt would like to know if there is anything else that can be prescribed along with the oxycodone he is currently taking? Please advise. Normal [facility] BASIC METABOLIC PANELon 02-26 Anion gap [Moles/Vol] 5 mmol/L Normal <=30 [facility] Comment on above: Performed By: #### L AB15 #### [facility] ([facility]) [address] [place] [address] Calcium [Mass/Vol] 8.5 mg/dL Low 8.6-10.3 [facility] Comment on above: Performed By: #### L AB15 #### [facility] ([facility]) [address] [place] [address] Chloride [Moles/Vol] 102 mmol/L Normal 98-107 [facility] Comment on above: Performed By: #### L AB15 #### [facility] ([facility]) [address] [place] [address] CO2 [Moles/Vol] 31 mmol/L Normal 21-31 [facility] Comment on above: Performed By: #### L AB15 #### [facility] ([facility]) [address] [place] [address] Creatinine [Mass/Vol] 0.96 mg/dL Normal 0.70-1.30 [facility] Comment on above: Performed By: #### L AB15 #### [facility] ([facility]) [address] [place] [address] GLOMERULAR FILTRATION RATE ML/MIN/1.73 SQ M.PREDICTED 88.6 mL/min/1.73m*2 Normal >60.0 [facility] Comment on above: Result Comment: [facility]???s estimated glomerular filtration rate (eGFR) will [...] individuals. Performed By: #### L AB15 #### [facility] ([facility]) [address] [place] [address] Glucose [Mass/Vol] 112 mg/dL High 70-100 [facility] Comment on above: Performed By: #### L AB15 #### [facility] ([facility]) [address] [place] [address] Potassium [Moles/Vol] 4.7 mmol/L Normal 3.5-5.1 [facility] Comment on above: Performed By: #### L AB15 #### [facility] ([facility]) [address] [place] [address] Sodium [Moles/Vol] 138 mmol/L Normal 136-145 [facility] Comment on above: Performed By: #### L AB15 #### [facility] ([facility]) [address] [place] [address] Urea nitrogen [Mass/Vol] 16 mg/dL Normal 7-25 [facility] Comment on above: Performed By: #### L AB15 #### [facility] ([facility]) [address] [place] [address] UREA NITROGEN/CREATININ E (MASS RATIO) IN SER/PLAS 16.67 Normal [facility] Comment on above: Performed By: #### L [id number] #### [facility] ([facility]) [address] [place] [address] CBCon 03-14-2022 Erythrocyte distribution width (RBC) [Ratio] 13.8 % Normal 11.5-15.0 [facility] Comment on above: Performed By: #### L [id number] #### [facility] ([facility]) [address] [place] [address] ERYTHROCYTE MEAN CORPUSCULAR HEMOGLOBIN CONCENTRATION (G/DL) BY AUTOMATED 33.2 g/dL Normal 32.0-35.0 [facility] Comment on above: Performed By: #### L [id number] #### [facility] ([facility]) [address] [place] [address] Hematocrit (Bld) [Volume fraction] 43.1 % Normal 39.0-55.0 [facility] Comment on above: Performed By: #### L [id number] #### [facility] ([facility]) [address] [place] [address] Hemoglobin (Bld) [Mass/Vol] 14.3 g/dL Normal 13.0-17.0 [facility] Comment on above: Performed By: #### L [id number] #### [facility] ([facility]) [address] [place] [address] MCH (RBC) [Entitic mass] 30.4 pg Normal 27.0-33.0 [facility] Comment on above: Performed By: #### L [id number] #### [facility] ([facility]) [address] [place] [address] MCV (RBC) [Entitic vol] 91.7 fL Normal 82.0-98.0 [facility] Comment on above: Performed By: #### L [id number] #### [facility] ([facility]) [address] [place] [address] PLATELETS (10*3/UL) IN BLOOD AUTOMATED COUNT 203 10*3/uL Normal 150-400 [facility] Comment on above: Performed By: #### L [id number] #### [facility] ([facility]) [address] [place] [address] RBC (Bld) [#/Vol] 4.70 10*6/uL Normal 4.20-5.70 [facility] Comment on above: Performed By: #### L [id number] #### [facility] ([facility]) [address] [place] [address] WBC (Bld) [#/Vol] 15.55 10*3/uL High 4.00-10.60 [facility] Comment on above: Performed By: #### L [id number] #### [facility] ([facility]) [address] [place] [address] Letter (Out)on 03-14-2022 Letter (Out) [id number] Tam tt 1965 M Date Provider Department Center 03/14/2022 [id number], GENERIC PRO*INIT None No family history on file Normal [facility] POCT GLUCOSE METER UNSOLICIT ED RESULTSon 03-14-2022 Glucose [Mass/Vol] 119 mg/dL High 70-105 [facility] Comment on above: Result Comment: jmat analilia Performed By: #### L [id number] ####[facility] ([facility])[address] [place] [address] Glucose [Mass/Vol] 123 mg/dL High 70-105 [facility] Comment on above: Result Comment: rsha w2 Performed By: #### L [id number] ####[facility] ([facility])[address] [place] [address] HPon 03-13-2022 HP History Of Present I [...] w/ meniscectomy (Left, 2012); Knee Arthroplasty (Left, 2014); Knee surgery (Left, 2018); Knee surgery (Left, [...] procedure: 1. L4-L5 posterior lumbar spine decompression (27983). 2. L4-L5 transforaminal lumbar interbody fusion using autograft, crushed cancellous allograft, and machine threaded bone dowel spacer ; and posterolateral fusion using autograft, crushed cancellous allograft (44122, 89481). 3. L4-L5 posterior spinal instrumentation using USS system from [employer] (50246). 4. Local bone autograft harvesting as well as use of crushed cancellous allograft (68116, ). 5. Use of intraoperative fluoroscopy (60448). Planned procedure date: 03/13/22 Discussed proposed procedure [...] at the same or adjacent level. Normal [facility] NURSNOTEon 03-13-2022 NURSNOTE FAMILY UPDATES XIONG D TO WR, NO FAMILY NEEDS AT THIS TIME. Normal [facility] OPNOTEon 03-13-2022 OPNOTE L4-L5 DECOMPRESSION WITH INTERBODY FUSION (L) Operative Note Date: 03/13/2022 Location: [facility] OR Name: Rios Bartlett, : 1965, Surgeons: Cheikh Walker - [employer] Superintendent: Ambrosio Zavaleta M.D. 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 Operation: 1. L4-L5 posterior lumbar spine decompression (44383). 2. L4-L5 transforaminal lumbar interbody fusion using autograft, crushed cancellous allograft, [employer] and machine threaded bone dowel spacer 11 mm; and posterolateral fusion using autograft, crushed cancellous allograft and [employer] (03390, 74125). 3. L4-L5 posterior spinal instrumentation using USS system from [employer] (49540). 4. Local bone autograft harvesting as well as use of crushed cancellous allograft (10790, 28958). 5. Use of intraoperative fluoroscopy (05984). 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 Procedure Summary Anesthesia: General ASA: III Position: Prone position on the Kamaljit table in reverse Trendelenburg position. Estimated Blood Loss: 200 mL Total IV Fluids: 1300 mL Drains: Hemovac Urethral Catheter Non-latex;Other (Comment) 16 Fr. (Active) Implants Type Name Action Serial No. Bone TISS BONE,CANC,CHIPS,PRES,60CC - [id number] - [id number] Implanted [id number] Allograft Tissue TISSUE VIVIGEN, 10 - [id number] - [id number] Implanted [id number] Allograft Tissue TISSUE VIVIGEN, 10[id number] - [id number] Implanted [id number] Bone TISS ALLOGRAFT,TP11MM,6X1X2.5 - [id number] - [id number] Implanted [id number] Screw SCREW,SIDE-OPEN,7.0M,50MM - [id number] Implanted Clamp COLLAR,TI,GROOVES - [id number] Implanted Nut TI-NUT,11M-WIDTH,ACROSS-FLAT S - [id number] Implanted Pin HILDA,6.0M,TI-HARD,50M - [id number] Implanted Staff: Hunter Skin Diver: Freya Loja RN Scrub Person: Tabatha German CST [place] Scrub: [...] has been seen in preoperative clinic at [facility]. Procedure: The patient was taken to [...] anterior co (more content not included)... Normal [facility] POCT GLUCOSE METER UNSOLICIT ED RESULTSon 03-13-2022 Glucose [Mass/Vol] 166 mg/dL High 70-105 [facility] Comment on above: Result Comment: iede ldu Performed By: #### L [id number] #### [facility] ([facility]) [address] [place] [address] Glucose [Mass/Vol] 98 mg/dL Normal 70-105 [facility] Comment on above: Result Comment: epaw low Performed By: #### L [id number] #### [facility] ([facility]) [address] [facility] [place] [address] VITAMIN D 25 HYDROXYon 03-13 CALCIDIOL (25 [place] VITAMIN D3) (NG/ML) IN SER/PLAS 26.0 ng/mL Low 30.0-80.0 [facility] Comment on above: Result Comment: >80. 0 Toxicity possible Performed By: #### L [id number] #### [facility] ([facility]) [address] [facility] [place] [address] Orders Onlyon 03-10-2022 Orders Only [id number] Alexis Bartlett tt 1965 M Date Provider Department Center 03/10/2022 1976-[facility] Medical No family history on file Normal [facility] SARS-COV-2 TMAon 03-10-2022 SARS-CoV-2 (COVID-19) RNA WADE+probe Ql (Unsp spec) Not detected Normal Not Detected [facility] Comment on above: Result Comment: Not [...] from SARS-CoV-2 isolated and purified from nasopharyngeal (ITALIAN LECTURER), oropharyngeal (OP), nasal swab, sputum, and bronchoalveolar lavage (BAL) specimens from patients with signs and symptoms of infection who are suspected of COVID-19. Results are for the identification of SARS-CoV-2 RNA. The SARS-CoV-2 RNA is generally detectable during the acute phase of infection. The Aptima SARS-CoV-2 Assay on the [employer] and [employer] Fusion system is intended for use by laboratory personnel specifically instructed and trained in the operation of the Gravel Switch and Gravel Switch Fusion system. The Aptima SARS-CoV-2 assay is only for use under the Food and Drug Administration Emergency Use Authorization. Testing is limited to laboratories certified under the Clinical Laboratory Improvement Amendments of 1988 (CLIA), 42 U.S.C. ???263a, to perform high complexity tests. Performed By: #### L [id number] #### [facility] ([facility]) [address] [place] [address] Orders Onlyon 03-09-2022 Orders Only [id number] Alexis Bartlett tt 1965 M Date Provider Department Center 03/09/2022 FREYA GUAMAN [facility] No family history on file Normal [facility] *MRSA/MSSA DNA NASALon 03-04 *MRSA/MSSA DNA NASAL Clinical Report: (D) Specimen: NASAL SWAB Collected: 03/04/2022 12:14 Status: Final Last Updated: 03/04/2022 21:39 MSSA DNA (Final) Methicillin Susceptible Staphylococcus aureus DNA Detected MRSA DNA (Final) Negative Normal [facility] Comment on above: Performed By: #### 3 1595 #### [facility] [address] [facility] [place] [address], [facility] APTTon 03-04-2022 aPTT Coag (Bld) [Time] 26.7 s Normal 25.0-35.0 [facility] Comment on above: Result Comment: ALL [...] THIS PURPOSE. Performed By: #### 5 7307, 81772 #### [facility] [address] [place] [address], [facility] BASIC METABOLIC PANELon Calcium [Mass/Vol] 8.9 mg/dL Normal 8.6-10.3 [facility] Comment on above: Performed By: #### 0 0071 #### [facility] [address] [place] [address], [facility] Chloride [Moles/Vol] 105 mmol/L Normal 98-107 [facility] Comment on above: Performed By: #### 0 0071 #### [facility] [address] [place] [address], [place] CO2 [Moles/Vol] 26 mmol/L Normal 21-31 [facility] Comment on above: Performed By: #### 0 0071 #### [facility] [address] [place] [address], [facility] Creatinine [Mass/Vol] 1.00 mg/dL Normal 0.70-1.30 [facility] Comment on above: Performed By: #### 0 0071 #### [facility] [address] [place] [address], [facility] GFR/1.73 sq M.predicted among non-blacks MDRD (S/P/Bld) [Vol rate/Area] mL/min/{1.73_m2} Normal >60 [facility] Comment on above: Result Comment: [facility]'s estimated glomerular filtration rate (eGFR) will [...] individuals. Performed By: #### 0 0071 #### [facility] [address] [place] [address], [facility] Glucose [Mass/Vol] 95 mg/dL Normal 70-100 [facility] Comment on above: Performed By: #### 0 0071 #### [facility] [address] Potassium [Moles/Vol] 4.9 mmol/L Normal 3.5-5.1 [facility] Comment on above: Performed By: #### 0 0071 #### [facility] [address] Sodium [Moles/Vol] 138 mmol/L Normal 136-145 [facility] Comment on above: Performed By: #### 0 0071 #### [facility] [address] Urea nitrogen [Mass/Vol] 15 mg/dL Normal 7-25 [facility] Comment on above: Performed By: #### 0 1 #### [facility] [address] CBC W/DIFFon 03-04-2022 ABS IMM GRANS 0.0 10*3/uL Normal 0.0-0.2 [facility] Comment on above: Performed By: #### 5 102 #### [facility] [address] ABS NEUTROPHILS 6.7 10*3/uL Normal 1.6-7.6 [facility] Comment on above: Performed By: #### 5 102 #### [facility] [address] Basophils (Bld) [#/Vol] 0.0 10*3/uL Normal 0.0-0.2 [facility] Comment on above: Performed By: #### 5 3 #### [facility] [address] Basophils/100 WBC (Bld) 0.4 % Normal 0.0-1.0 [facility] Comment on above: Performed By: #### 5 102 #### [facility] [address] [place] [address], [facility] Eosinophils (Bld) [#/Vol] 0.2 10*3/uL Normal 0.0-0.5 [facility] Comment on above: Performed By: #### 5 0103 #### [facility] [address] [facility] [place] [address], [facility] Eosinophils/100 WBC (Bld) 2.0 % Normal 0.0-6.0 [facility] Comment on above: Performed By: #### 5 0103 #### [facility] [address] [facility] Erythrocyte distribution width (RBC) [Ratio] 13.8 % Normal 11.5-15.0 [facility] Comment on above: Performed By: #### 5 0103 #### [facility] [address] [facility] Hematocrit (Bld) [Volume fraction] 48.0 % Normal 39.0-50.0 [facility] Comment on above: Performed By: #### 5 0103 #### [facility] [address] [facility]. [address] Hemoglobin (Bld) [Mass/Vol] 15.9 g/dL Normal 13.0-17.0 [facility] Comment on above: Performed By: #### 5 0103 #### [facility] [address] [place] [address], [facility] IMMATURE GRANS 0.3 % Normal 0.0-1.0 [facility] Comment on above: Performed By: #### 5 0103 #### [facility] [address] [facility] [place] [address], [facility] Lymphocytes (Bld) [#/Vol] 3.3 10*3/uL Normal 1.2-4.0 [facility] Comment on above: Performed By: #### 3 #### [facility] [address] [facility] [place] [address], [facility] Lymphocytes/100 WBC (Bld) 29.7 % Normal 20.0-45.0 [facility] Comment on above: Performed By: #### 5 0103 #### [facility] [address] [place] [address], [facility] MCH (RBC) [Entitic mass] 29.8 pg Normal 27.0-33.0 [facility] Comment on above: Performed By: #### 5 0103 #### [facility] [address] [facility] [place] [address], [facility] MCHC (RBC) [Mass/Vol] 33.1 g/dL Normal 32.0-35.0 [facility] Comment on above: Performed By: #### 5 0103 #### [facility] [address] [place] [address], [facility] MCV (RBC) [Entitic vol] 90.1 fL Normal 82.0-98.0 [facility] Comment on above: Performed By: #### 5 0103 #### [facility] [address] [facility] [place] [address], [facility] Monocytes (Bld) [#/Vol] 0.8 10*3/uL Normal 0.1-1.0 [facility] Comment on above: Performed By: #### 5 0103 #### [facility] [address] [facility] [place] [id number], [facility] MONOS 7.4 % Normal 5.0-12.0 [facility] Comment on above: Performed By: #### 5 0103 #### [facility] [address] [place] [id number], [facility] Neutrophils/100 WBC (Bld) 60.2 % Normal 40.0-72.0 [facility] Comment on above: Performed By: #### 5 3 #### [facility] [address] [place] [id number], [facility] Nucleated RBC/100 WBC (Bld) [Ratio] 0 % Normal 0-0 [facility] Comment on above: Performed By: #### 5 0103 #### [facility] [address] [facility] [place] [address], [facility] PLAT CNT 197 10*3/uL Normal 150-400 [facility] Comment on above: Performed By: #### 5 0103 #### [facility] [address] [facility] [place] [address], [facility] RBC (Bld) [#/Vol] 5.33 10*6/uL Normal 4.20-5.70 [facility] Comment on above: Performed By: #### 5 0103 #### [facility] [address] [facility] [place] [address], [facility] WBC (Bld) [#/Vol] 11.07 10*3/uL High 4.00-10.60 [facility] Comment on above: Performed By: #### 5 0103 #### [facility] [address] PROTHROMBIN TIMEon 2 INR Coag (PPP) [Relative time] 0.97 {INR} Normal 0.91-1.16 [facility] Comment on above: Result Comment: ACCC [...] CHEST 1995;108:231S-246S. Performed By: #### 5 7307, 96112 #### [facility] [address] [place] [address], [place] PT Coag (PPP) [Time] 12.9 s Normal 12.3-14.8 [facility] Comment on above: Result Comment: ALL RESULTS MUST BE INTERPRETED WITH RESPECT TO BLOOD DRAWING ARTIFACT OR DILUTION ERROR OF ANTICOAGULANT AT THE TIME OF SAMPLING. Performed By: #### 5 7307, 30707 #### [facility] [address] [place] [address], [place] TYPE AND CROSSMATCHon 2021 ABO INTERPRETATION A Normal [facility] Comment on above: Performed By: #### 6 2594 #### [facility] [address] [place] [address], [place] RH INTERPRETATION Positive Normal [facility] Comment on above: Performed By: #### 6 2594 #### [facility] [address] [place] [address], [place] TYPE AND SCREENon 03-04-2022 AB SCREEN Negative Normal [facility] Comment on above: Performed By: #### L [id number] #### [facility] ([facility]) [address] [place] [address] ABO group Nom (Bld) A Normal [facility] Comment on above: Performed By: #### L [id number] #### [facility] ([facility]) [address] [place] [address] RH TYPE IN BLOOD Positive Normal [facility] Comment on above: Performed By: #### L [id number] #### [facility] ([facility]) [address] [place] [address] URINALYSISon 03-04-2022 Appearance (U) CLEAR Normal CLEAR [facility] Comment on above: Performed By: #### 1 0008 #### [facility] [address] [place] [address], [facility] Bilirubin Ql (U) Negative Normal NEGATIVE [facility] Comment on above: Performed By: #### 1 0008 #### [facility] [address] [place] [address], [place] Color (U) YELLOW Normal YELLOW [facility] Comment on above: Performed By: #### 1 0008 #### [facility] [address] [place] [address], [facility] EPIS NONE SEEN Normal FEW,OCC,NON E SEEN [facility] Comment on above: Performed By: #### 1 0008 #### [facility] [address] [place] [address], [facility] Glucose Ql (U) Negative Normal NEGATIVE [facility] Comment on above: Performed By: #### 1 0008 #### [facility] [address] [facility] [place] [address], [facility] Hemoglobin Ql (U) Negative Normal NEGATIVE [facility] Comment on above: Performed By: #### 1 0008 #### [facility] [address] [facility] [place] [address], [facility] KETONE Negative Normal NEGATIVE [facility] Comment on above: Performed By: #### 1 0008 #### [facility] [address] [place] [address], [facility] LEUK OTF Negative Normal NEGATIVE [facility] Comment on above: Performed By: #### 1 0008 #### [facility] [address] [place] [address], [place] MUCUS THREADS OCC Abnormal NONE SEEN [facility] Comment on above: Performed By: #### 1 0008 #### [facility] [address] [place] [address], [place] Nitrite Ql (U) Negative Normal NEGATIVE [facility] Comment on above: Performed By: #### 1 0008 #### [facility] [address] [facility]. [place], [place] [id number] [place] [address] pH (U) 5.5 [pH] Normal 5.0-8.0 [facility] Comment on above: Performed By: #### 1 0008 #### [facility] [address] [place] [address], [facility] Protein Ql (U) Negative Normal NEGATIVE [facility] Comment on above: Performed By: #### 1 0008 #### [facility] [address] RBC 0-2 Abnormal NONE SEEN [facility] Comment on above: Performed By: #### 1 0008 #### [facility] [address] SPEC GRAV 1.020 Normal 1.015-1.020 [facility] Comment on above: Performed By: #### 1 0008 #### [facility] [address] WBC UA 0-2 Abnormal NONE SEEN [facility] Comment on above: Performed By: #### 1 0008 #### [facility] [address] MRI LUMBAR SPINE WO CONTRAST on 01-28-2022 MRI LUMBAR SPINE WO CONTRAST [facility] Department of Radiology [address] [place] [id number] Patient Name: RIOS BARTLETT : 1965 [...] identified. Electronically signed: Jairo Tapia. Transcribed by: [email or web address], User Resident: Electronically Signed by: JAIRO ANÍBAL @ 01/28/2022 03:00 PM Normal [facility] Comment on above: Order Comment: Evalu [...] developed and its performance characteristic determined by [employer] and validated at [facility]. This test has not been [...] for SARS Antigen by HANY PERFORMED BY: [facility] [place] [id number] PATHOLOGIST PERIOPERATIVE EDUCATOR LEONA ALVAREZ M.D. Normal [facility] Comment on above: Performed By: #### S ANDREW COOKID-19 SOHAIL #### [address] [address] [facility] Sohail Ag Negativeon 11-04-19 Sohail Ag Negative Negative Normal Negative [facility] Comment on above: Result Comment: This is a duplicate Sohail SARS Antigen (HANY) result to be used for statistical tracking purpose only. PERFORMED BY: [place] [address] PATHOLOGIST PERIOPERATIVE EDUCATOR LEONA ALVAREZ M.D. Performed By: #### S JOYCE COVID-19 SOHAIL #### [place] [id number] [facility] LUMBAR SPINE 2 OR 3 VWSon LUMBAR SPINE 2 OR 3 S [facility] Department of Radiology [address] [place] [id number] Patient Name: RIOS BARTLETT : 1965 Sex: M Age: Race: White Pt. Location: Patient Status: D Ordered Date: 03/21/2021 1:15:00 PM Completed Date: 03/21/2021 01:11 PM Requesting Provider: DARON GOMEZ Attending Provider: TANYA NOVOA Report Copy To: Signs & Symptoms: M54.17 Radiculopathy, lumbosacral region I10 History: Doss Comments: Exam: LUMBAR SPINE 2 OR 3 [...] abnormality. Electronically signed: Laurent Lopez. Transcribed by: [email or web address], User Resident: Electronically Signed by: LAURENT LOPEZ @ 03/22/2021 02:01 PM Normal [facility] XR LUMBAR SPINE (2-3 VIEWS)o n [...] Jermaine Krishnamurthy MD 02/08/21 Final result Normal [facility] XR KNEE LEFT STANDARDon - XR KNEE LEFT STANDARD TECHNIQUE: Left knee [...] Jr.igned by:Miles Mishra Jr., MD02/11/17Final result Normal [facility] Vital Signs Date Time Vital Sign Value Performing Clinician Joni radha 12-16-2022 13:33-0400 Blood Pressure Location [employer] A[facility]SL [facility] 12-16-2022 13:33-0400 Diastolic blood pressure 66 mm[Hg] Todd NILL [facility] 12-16-2022 13:33-0400 Heart rate 70 /min Todd NILL [facility] 12-16-2022 13:33-0400 Respiratory rate 18 /min Todd NILL [facility] 12-16-2022 13:33-0400 Systolic blood pressure 118 mm[Hg] Todd NILL [facility] 02-08-2021 10:49-0400 Body mass index (BMI) [Ratio] 42.33 kg/m2 Mary Kline MD Work Phone: [employer] Work Phone: 02-08-2021 10:49-0400 Body temperature 98.4 [degF] Mary Kline MD Work Phone: [employer] Work Phone: 02-08-2021 10:49-0400 Body weight 133.81 kg Mary Kline MD Work Phone: [employer] Work Phone: 02-08-2021 10:49-0400 Diastolic blood pressure 90 mm[Hg] Mary Kline MD Work Phone: [employer] Work Phone: 02-08-2021 10:49-0400 Heart rate 92 /min Mary Kline MD Work Phone: [employer] Work Phone: 02-08-2021 10:49-0400 Respiratory rate 18 /min Mary Kline MD Work Phone: [employer] Work Phone: 02-08-2021 10:49-0400 SaO2% (BldA) [Mass fraction] 94 % Mary Kline MD Work Phone: [employer] Work Phone: 02-08-2021 10:49-0400 Systolic blood pressure 119 mm[Hg] Mary Kline MD Work Phone: [employer] Work Phone: Encounters Encounter Date Encounter Type Care Provider Facility Start: 08-04-2024 End: 08-04-2024 Telemedicine consultation with patient London Carlson MD Work Phone: Neurology Start: 08-04-2024 End: 08-04-2024 ambulatory London Carlson MD Work Phone: Neurology Comment on above: Snoring (Primary Dx) ; Witnessed episode of apnea; Frequent nocturnal awakening; Nocturia; RLS (restless legs syndrome); Suspected sleep apnea Start: 12-30-2022 End: 12-31-2022 ambulatory Todd R NILL Facility: [facility] Start: 12-30-2022 End: 12-30-2022 Patient encounter procedure Todd R NILL [facility] Start: 12-16-2022 End: 12-17-2022 ambulatory Todd R NILL Facility: [facility] Start: 12-16-2022 End: 12-16-2022 Patient encounter procedure Todd R NILL [facility] Start: 11-04-2022 End: 11-05-[address] MARY KLINE . Facility: Start: 08-10-2022 End: 08-11-[address] MARY KLINE . Facility:[facility] Start: 08-03-2022 End: 08-04-[address] MARY KLINE . Facility:[facility] Start: 07-30-2022 End: 07-31-[address] MARY KLINE . Facility: Start: 03-27-2022 End: 03-27-[address] [facility] Start: 03-14-2022 Evaluation and manag ement of inpatient [facility] Start: 03-13-2022 End: 03-14-2022 Evaluation and management of inpatient [facility] Start: 03-13-2022 End: 03-14-2022 Evaluation and management of inpatient [facility] Start: 03-10-2022 End: 03-10-[address] [facility] Start: 01-28-2022 End: 01-29-2022 ambulatory MARY KLINE Facility:[facility] Start: 02-08-2021 Emergency department patient visit MARY Blue [facility] Start: 02-08-2021 End: 02-08-2021 Emergency department patient visit Mary Kline MD Work Phone: [facility] Comment on above: Acute exacerbation o f chronic low back pain (Primary Dx) Start: 02-11-2017 End: 02-12-2017 Ambulatory OLIVIA ZAMAN [facility] Procedures Date Procedure Procedure Detail Performing Clinician Start: 11-04-[address] MARY KLINE . Comment on above: Performed By: #### TSH, T4, FT3, CMP, LI PID #### [facility] [address] [place] [address] Dr. Ayush Rice Start: 03-04-2022 Antibody screen MARY KLINE Comment on above: Performed By: #### [id number] #### [facility] [address] [place] [address], [facility] Start: 08-27-2021 Exploration procedure Todd BUDDY Comment on above: left mid back Start: 02-08-2021 Radex spine lumbosacral 2/3 views Niall De La Torre [employer] Work Phone: Start: 06-28-2019 Uvulopalatopharyngoplasty Todd BUDDY Start: 02-11-2017 Radiologic examination knee 3 views OLIVIA POCOS Start: 10-06-2016 L knee synovectomy, poly exchange, quad plasty complicated by obesity Todd BUDDY ACDF 5-7 Todd BUDDY Gastric sleeve Todd CALDWELLL History of revision of left total knee arthroplasty Todd GOODWIN left knee arthroscopy Michae kale GOODWIN left total knee arthroplasty Todd BUDDY Local anesthetic ner ve block in lower limb Todd BUDDY Comment on above: left knee Lumbar spinal fusion Todd GOODWIN Nasal septoplasty Todd PARUL KAY Tonsillectomy and adenoidectomy Todd CALDWELLL Torsion of testis (disorder) Todd GOODWIN Plan of Treatment Date Care Activity Detail Author Start: 11-05-2027 Prostate specific antigen measurement Prostate Cancer Screening Discussion [facility] Start: 03-14-2025 Diabetes Screening Diabetes Screenin g [facility] Start: 10-20-2024 End: 10-20-2024 Patient encounter procedure 10/20/2024 9:10 PM EDT Office Visit Neurology [address] [place] [address] [facility] Comment on above: [facility] Start: 02-27-2024 Covid-19 Vaccine ( season) Covid-19 Vaccine ( season) [facility] Start: 02-27-2024 Influenza vaccination Influenza Vacc ine (#1) [facility] Start: 02-26-2021 Influenza vaccination Flu vaccine (# 1) [facility] [employer] Phone: Start: 2016 Pneumococcal Vaccine : 50+ (1 of 1 - PCV) Pneumococcal Vaccine: 50+ (1 of 1 - PCV) [facility] Start: 2016 Shingles Vaccine (1 of 2) Shingles Vaccine (1 of 2) [facility] Work Phone: Start: 2016 Shingrix Vaccine (1 of 2) Shingrix Vaccine (1 of 2) [facility] Start: 09-07-2011 Screening for malign ant neoplasm of colon [facility] Start: 2006 Lipid panel Lipid screen [facility] Work Phone: Start: 2001 Lipid panel Lipid Screening [facility] Start: 1985 DTaP/Tdap/Td vaccine (1 - Tdap) DTaP/Tdap/Td vaccine (1 - Tdap) [facility] [employer] Phone: Start: 1985 Hepatitis B Vaccine (1 of 3 - 19+ 3-dose series) Hepatitis B Vaccine (1 of 3 - 19+ 3-dose series) [facility] Start: 1985 Urine microalbumin profile DTaP,Tdap,Td Vaccine (1 - Tdap) [facility] Start: 1984 Anxiety Screening Anxiety Screening [facility] Start: 1984 Depression Screening Depression Scre ening [facility] Start: 1984 Hepatitis C screening [facility] Start: 1984 HIV screening HIV Screening [facility] Start: 1981 HIV screening HIV screen [facility] Work Phone: Start: 1965 Hepatitis C screening Hepatitis C [facility] Work Phone: End: 08-04-2025 Polysomnogram POLYSOMNOGRAM (PSG) Procedures Routine Snoring Witnessed episode of apnea Frequent nocturnal awakening Nocturia RLS (restless legs syndrome) Suspected sleep apnea 1 Occurrences starting 08/04/2024 until 08/04/2025 [facility] Work Phone: Comment on above: 1 Occurrences starti ng 08/04/2024 until 08/04/2025 XR LUMBAR SPINE (2-3 VIEWS) XR LUMBAR SPINE (2-3 VIEWS) Imaging STAT 02/08/2021 12:10 PM EDT [facility] Work Phone: Immunizations Immunization Date Immunization Notes Care Provider Jenniffer carver 04-14-2016 influenza virus vaccine, unspecified formulation London Carlson MD Work Phone: [facility] NEGATED: Highlighted row has not occurred!08-13-2021 influenza virus vaccine, unspecified formulation Todd BUDDY [facility] [place] Payers Date Payer Category Payer [facility] Health Insurance [facility] HMO [id number] 2020 Medicare [id number] 2019 Unknown [id number] 2016 Unknown [id number] 1965 Unknown [id number] 1965 Unknown [id number] 1965 Unknown [id number] 593 1965 Unknown [id number] 593 1965 Unknown [id number] 593 1965 Unknown [id number]. 593 1965 Unknown [id number] 727 1965 Unknown [id number] 727 Social History Date Type Detail Facility Start: 02-08-2021 End: 12-16-2022 Tobacco smoking status NHIS Never smoker [facility] Start: 02-08-2021 Tobacco use and exposure Never used [employer] Start: 1965 Sex Assigned At Not on file [employer] Work Phone: Exposure to SARS-CoV-2 (event) Not sure [facility] Tobacco smoking status Never [facility] [place] Start: 06-04-2020 End: 08-02-2024 Sex Assigned At Male [employer] [facility] Tobacco smoking status SDIS Tobacco smoking consumption unknown [facility] Start: 06-04-2020 End: 08-02-2024 History of Social function [facility] Functional Status Date Assessment Result Facility 12-16-2022 Functional Status N/A [facility] Clinical Notes 03-13-2022 to 08-04-2024 Patient InstructionsLondon Carlson MD - 08/04/2024 7:50 AM EST Note Date & Type Note Facility 08-04-2024 Instructions Neil Arriaga MD - 08/04/2024 8:50 AM EST PATTI Evaluation: - We suspect you may have sleep apnea. - Sleep apnea is a serious sleep disorder that occurs when a person's breathing is interrupted during sleep. People with untreated sleep apnea stop breathing repeatedly during their sleep, sometimes hundreds of times during the night. - The most common type of sleep apnea is obstructive sleep apnea. - If left untreated, obstructive sleep apnea can result in a number of health problems including hypertension, stroke, arrhythmias, cardiomyopathy (enlargement of the muscle tissue of the heart), heart failure, diabetes, obesity, and heart attacks. - Treatment options for obstructive sleep apnea may include positive airway pressure (PAP) therapy, oral appliance, hypoglossal nerve stimulator, nose/throat surgery, weight loss, side sleeping, or avoidance of medications or substances that can relax the airway muscles (alcohol, benzodiazepines, and opioids). - We have ordered a Polysomnogram (PSG) to evaluate for sleep apnea. - This test should be scheduled at your earliest convenience. - Avoid driving if drowsy. We recommend that if you are dozing off while driving, that you do not drive until your sleepiness is appropriately treated. - We encourage a healthy lifestyle with adequate sleep (7-9 hours per night), diet and exercise. - Please schedule a follow up clinic visit now for 2-3 weeks after sleep study is done to review results. Please schedule your virtual visit or clinic visit with available provider , who will be able to explain the results in detail and any treatments options. - Call [phone] to schedule your sleep study and follow up appointment if it is not scheduled after your visit today with one of our schedulers. Sleep Nurse Practitioners: Nessa Bermudez [facility] [address] [place] [address] [facility] [address] [place] [address] [facility] [address] [place] [address] Wednesday, Wednesday, Wednesday Appt: [phone] Marnie Bonilla, PhD, [facility] [address] [place] [address] [facility] [address] [place] [address] Mondays, Tuesdays & Wednesday Appt: [phone] Polina Anglin, [facility] [address] [place] [address] [facility] [address] [place] [address] [facility] [address] [place] [address] Wednesday, Wednesday, Wednesday Appt: [phone] Vania Bardales, [facility] [address] [place] [address] [facility] [address] [place] [address] [facility] [address] [place] [address] Wednesday, , Wednesday Appt: [phone] Maria Guadalupe Hemphill, [facility] [address] [facility] [place] [address] [facility] [address] [place] [address] Wednesday, Wednesday, Wednesday, Wednesday Appt: [phone] Parul Durham [facility] [address] [place] [address] [facility] [address] [place] [address] Wednesday, Wednesday, Wednesday, Wednesday Appt: [phone] Any appointments can be scheduled through the central scheduling system for the [facility] at [phone]. [facility] now offers direct scheduling for patients to schedule appointments. Virtual visits are also available. If not covered by your insurance, there is a 35% discount. Please contact your insurance to determine coverage. Call the office at [phone], option #5 for questions. May use Message My Doc through My Chart for questions. May use My Chart Refills for refill requests. [facility] website: [email or web address] documented in this encounter [facility] 08-04-2024 Note HNO ID: [id number] Author: LONDON CARLSON MD Service: ? Author Type: Physician Type: Progress Notes Filed: 08/08/2024 09:00 Note Text: [facility] New Patient Evaluation PATIENT NAME: Rios Bartlett DATE OF SERVICE: August 04, 2024 I have communicated my name and active licensure. The patient's identity and physical location were verified at the time of this visit. 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 CONSULTING PROVIDER: No referring provider defined for this encounter. REASON FOR CONSULT: sends the patient for an opinion about PATTI. My findings and recommendations will be transmitted electronically via shared medical record to the consulting provider. HPI: Rios Bartlett is a 58 year old male with PMHx of anxiety, HTN, HLD, GERD, morbid obesity who presents to sleep center for consultation regarding PATTI and RLS Sleep-related history: Patient reports having diagnosis of PATTI about 10 years ago after a sleep study was done at an outside institution near his home ([facility]). He was recommended to started PAP therapy but did not as he felt that it was a very uncomfortable experience from the PAP titration. He endorses symptoms of snoring, witnessed apneas, frequent nocturnal awakenings, nocturia. In the daytime, he experiences daytime sleepiness and fatigue. Underwent a UPPP with mandibular advancement and nasal septoplasty in May of 2020 He has an irregular sleep schedule because he is currently working 1-2 part-time jobs that involve early wake up times or staying up later. Feeling very tired and sleepy all the time. Potential history of RLS but does not recall if he was treated for it. Possibly took Gabapentin. He endorses daytime and nighttime symptoms when he is driving or resting at night. This was complicated by knee surgery and lower back issues SLEEP-WAKE SCHEDULE He is a self-described night person Frequent napping and free-sleeping schedule No set bedtime and wakeup time but tries to sleep from 11pm-6am. After falling asleep: he wakes up 5 time(s) per night, because of snoring or snorting and the need to urinate. On weekends, he maintains the same sleep schedule. Average total sleep time (in a 24 hour period): 5 hours. SLEEP-RELATED DETAILS Preferred sleep position: side or back Breathing disturbances and other behaviors during sleep: snoring, stopping breathing during sleep, moving around a lot, and frequent leg movements. Bruxism: No GERD or aspiration: Yes Waking up with heart pounding or racing: No Anxiety or rumination: No He reports having an urge to move the legs. The urge to move the legs is worse in the evening or nighttime than during the daytime. The urge to move the legs begins or worsens during periods of rest or inactivity (e.g. lying or sitting). The urge to move the legs is partially or totally relieved by movements such as walking or stretching, at least as long as the activity continues. The urge to move the legs occurs 7 nights per week and began 10 years ago. There is no history of iron deficiency or anemia. He has not been told that he has leg kicking during sleep. He denies any history of parasomnias. Excessive daytime sleepiness / fatigue is a problem. Excessive Daytime sleepiness/fatigue has been a problem for 10 years. There is no history of a viral illness or significant head injury prior to the start of daytime sleepiness. He does not report sleep paralysis or sleep-related hallucinations or cataplexy . 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 He denies falling asleep or dozing off when driving. He does take naps but they are not refreshing He does drink 5 caffeinated beverages per day. He has gained 40 pounds in the last year Patient Questionnaires Sleep Scores 08/02/2024 Sleep Questions Reason for visit: Sleep apnea Difficulty falling or staying asleep or poor sleep quality Excessive daytime sleepiness Restless Legs Syndrome Abnormal behaviors/movements during sleep On average, hours of sleep in 24 hours: 4 Accidents or near accidents due to drowsy drivin Multiple values from one day are sorted in reverse-chronological order 08/02/2024 PROMIS CAT Sleep Disturbance PROMIS Sleep Disturbance T-Score 72 (severe) PROMIS Sleep Disturbance Percentile 1 08/02/2024 PHQ-9 Score 21 08/02/2024 PROMIS Global Health - (T-Scores - the mean of general population = 50. Five points is a clinically meaningful difference.) Physical T-Score 23.5 Mental T-Score 25.1 [place] Sleepiness Scale Sitting and Reading? high chance of dozing (3) Watching TV? high (more content not included)... [facility] 08-04-2024 History of Present illness Narrative Images from the original note were not included. [facility] New Patient Evaluation PATIENT NAME: Rios Bartlett DATE OF SERVICE: August 04, 2024 I have communicated my name and active licensure. The patient's identity and physical location were verified at the time of this visit. 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 CONSULTING PROVIDER: No referring provider defined for this encounter. REASON FOR CONSULT: sends the patient for an opinion about PATTI. My findings and recommendations will be transmitted electronically via shared medical record to the consulting provider. HPI: Rios Bartlett is a 58 year old male with PMHx of anxiety, HTN, HLD, GERD, morbid obesity who presents to sleep center for consultation regarding PATTI and RLS Sleep-related history: Patient reports having diagnosis of PATTI about 10 years ago after a sleep study was done at an outside institution near his home ([facility]). He was recommended to started PAP therapy but did not as he felt that it was a very uncomfortable experience from the PAP titration. He endorses symptoms of snoring, witnessed apneas, frequent nocturnal awakenings, nocturia. In the daytime, he experiences daytime sleepiness and fatigue. Underwent a UPPP with mandibular advancement and nasal septoplasty in May of 2020 He has an irregular sleep schedule because he is currently working 1-2 part-time jobs that involve early wake up times or staying up later. Feeling very tired and sleepy all the time. Potential history of RLS but does not recall if he was treated for it. Possibly took Gabapentin. He endorses daytime and nighttime symptoms when he is driving or resting at night. This was complicated by knee surgery and lower back issues SLEEP-WAKE SCHEDULE He is a self-described night person Frequent napping and free-sleeping schedule No set bedtime and wakeup time but tries to sleep from 11pm-6am. After falling asleep: he wakes up 5 time(s) per night, because of snoring or snorting and the need to urinate. On weekends, he maintains the same sleep schedule. Average total sleep time (in a 24 hour period): 5 hours. SLEEP-RELATED DETAILS Preferred sleep position: side or back Breathing disturbances and other behaviors during sleep: snoring, stopping breathing during sleep, moving around a lot, and frequent leg movements. Bruxism: No GERD or aspiration: Yes Waking up with heart pounding or racing: No Anxiety or rumination: No He reports having an urge to move the legs. The urge to move the legs is worse in the evening or nighttime than during the daytime. The urge to move the legs begins or worsens during periods of rest or inactivity (e.g. lying or sitting). The urge to move the legs is partially or totally relieved by movements such as walking or stretching, at least as long as the activity continues. The urge to move the legs occurs 7 nights per week and began 10 years ago. There is no history of iron deficiency or anemia. He has not been told that he has leg kicking during sleep. He denies any history of parasomnias. Excessive daytime sleepiness / fatigue is a problem. Excessive Daytime sleepiness/fatigue has been a problem for 10 years. There is no history of a viral illness or significant head injury prior to the start of daytime sleepiness. He does not report sleep paralysis or sleep-related hallucinations or cataplexy . 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 He denies falling asleep or dozing off when driving. He does take naps but they are not refreshing He does drink 5 caffeinated beverages per day. He has gained 40 pounds in the last year Patient Questionnaires Sleep Scores 08/02/2024 Sleep Questions Reason for visit: Sleep apnea Difficulty falling or staying asleep or poor sleep quality Excessive daytime sleepiness Restless Legs Syndrome Abnormal behaviors/movements during sleep On average, hours of sleep in 24 hours: 4 Accidents or near accidents due to drowsy drivin Multiple values from one day are sorted in reverse-chronological order 08/02/2024 PROMIS CAT Sleep Disturbance PROMIS Sleep Disturbance T-Score 72 (severe) PROMIS Sleep Disturbance Percentile 1 08/02/2024 PHQ-9 Score 21 08/02/2024 PROMIS Global Health - (T-Scores - the mean of general population = 50. Five points is a clinically meaningful difference.) Physical T-Score 23.5 Mental T-Score 25.1 [place] Sleepiness Scale Sitting and Reading? high chance of dozing (3) Watching TV? high chance of dozing (3) Sitting inactive in a public place (e.g a theater or a meeting) high chance of dozing (3) As a passenger in a car for an hour without a break? high chance of dozing (3) Lying down to rest in the afternoon when circumstances permit? high chance of dozing (3) Sitting and talking to someone? slight chance of dozing (1) Sitting quietly after lunch without alcohol? high chance of dozing (3) In a car, while stopped for a few minutes in traffic? high chance of dozing (3) Total Score ABNORMAL (22) International Restless Legs Syndrome Study Group Rating Scale RLS discomfort in legs or arms Very severe (4) Need to move around due to RLS Severe (3) Relief of RLS leg or arm discomfort from moving No relief (4) Severity of sleep disturbance due to RLS symptoms Severe (3) Severity of sleepiness due to RLS symptoms Severe (3) Severity of RLS as a whole Very severe (4) Frequency of RLS symptoms Very severe (This means 6 to 7 days a week) (4) Severity of RLS symptoms on an average day Very severe (This means 8 hours per day or more) (4) Impact of RLS symptoms on daily affairs Severe (3) Severity of mood disturbance due to RLS symptoms Severe (3) Total Score VERY SEVERE symptom burden (35) PAST TREATMENTS: None PRIOR SLEEP STUDIES: ~10 years ago at outside facility OTHER RELEVANT LABS AND STUDIES: History reviewed. No pertinent past medical history. History reviewed. No pertinent surgical history. ACTIVE PROBLEM LIST Ankylosis of Joint Cramp and Spasm Low Back Pain Other Intervertebral Disc Displacement, Lumbar Region Other Chronic Pain Pain in Left Leg Pain in Left Lower Leg Presence of Left Artificial Knee Joint Allergies As of Date: 08/04/2024 Allergen Noted Reaction MORPHINE 01/28/2018 Itching Fully Assessed 08/04/2024 CURRENT MEDICATIONS: traMADol (ULTRAM) 50 mg tablet TAKE 1 TO 2 TABLETS BY MOUTH 4 TIMES A DAY NEEDED VIMOVO 375-20 mg TbID Take 1 tablet by mouth twice daily before meals. ULORIC 40 mg tab Take 40 mg by mouth once daily. diazePAM (VALIUM) 10 mg tablet TAKE 1 TABLET BY MOUTH 1 HOUR PRIOR TO MRI Prior Hypersomnia/Narcolepsy Medications (20 years) No data to display Prior RLS Medications (last 20 years) 01/03/2018 00:00 RLS Medications tramadol HCl TAKE 1 TO 2 TABLETS BY MOUTH 4 TIMES A DAY NEEDED (50 mg tab) Details Patient-reported medication Prior Insomnia Medications (last 20 years) 01/17/2018 00:00 Insomnia Medications diazepam TAKE 1 TABLET BY MOUTH 1 HOUR PRIOR TO MRI (10 mg tab) Details Patient-reported medication Review of Systems All other systems reviewed and are negative. SOCIAL HISTORY: FAMILY HISTORY: History reviewed. No pertinent family history. There is no family history of sleep disorders. PHYSICAL EXAMINATION: Vital Signs: There were no vitals taken for this visit. General appearance: well groomed, pleasant, co-operative Mental status: alert awake oriented Neck: No goiter visible Constitutional: NL Skin: NL Eyes: conjunctivae/corneas clear, anicteric sclera, EOMI ENT : External ears normal. Nasal congestion absent, Nasal valve incompetence absent. Posterior airspace: Miles tongue position 4 Neuro: Nl CN, no tremors Psych: Nl mood and affect IMPRESSION/PLAN: R06.83 Snoring (primary encounter diagnosis) R06.81 Witnessed episode of apnea G47.00 Frequent nocturnal awakening R35.1 Nocturia G25.81 RLS (restless legs syndrome) R29.818 Suspected sleep apnea Rios Bartlett is a 58 year old male with PMHx of anxiety, HTN, HLD, GERD, morbid obesity who presents to sleep center for consultation regarding PATTI and RLS. Underwent a UPPP with mandibular advancement and nasal septoplasty in May of 2020 with residual symptoms persistent now Snoring Witnessed apnea Frequent awakenings Nocturia Suspected sleep apnea RLS - Polysomnogram (PSG) to evaluate for obstructive sleep apnea. - Discussed with the patient the possible diagnosis, causes, and conditions associated with obstructive sleep apnea. - Does have lower extremity discomfort that could be RLS vs. Other MSK etiology. Limited due to virtual exam today. Will try to optimize and underlying SDB as priority. - Avoid driving when drowsy. Recommend that if you are dozing off while driving, that you do not drive until your sleepiness is appropriately treated. -Encouraged healthy lifestyle with adequate sleep ( 7-9 hours per night), diet and exercise. - Results are usually available within 7-10 business days. If you do not hear from us within 1-2 weeks after testing, please contact us directly. - Follow up visit 2-3 weeks after PSG. Please schedule this appointment now to ensure your preferred time and location. Patient seen and discussed with Dr. Joann Arriaga MD Sleep Medicine Fellow Attending Note I evaluated the patient and personally participated in the tyson components of the history and physical exam. I have modified the note above to reflect my clinical decision making. I agree with the resident/fellow's findings, plan as documented, and have discussed the case and management of the patient's care with the resident/fellow. London Carlson MD Sleep Medicine Appointments: [phone] Office: [phone] August 08, 2024 8:59 AM documented in this encounter [facility] 12-16-2022 Note Chief Complaint consultation for skin [...] vaccine, inactivated - Not Given Patient Refuses [facility] Comment on above: Result Comment: Elec tronically Signed By: BUDDY TRAN, Todd Castellanos\Date and Time Signed: 12/16/22 20:50 EDT 03-27-2022 Note Orthopedic Surgery First postoperative follow up after L4-5 decompression and fusion for disc degeneration and spinal stenosis 03/13/22 Residual radicular pain both lower extremities, LBP improving Patient History Past Surgical History: Procedure Laterality Date ADENOIDECTOMY 2020 CERVICAL SPINE SURGERY 2009 KNEE ARTHROPLASTY Left 2013 LEFT KNEE REPLACEMENT KNEE ARTHROSCOPY W/ MENISCECTOMY [...] as tolerated Follow up in 4 weeks [facility] 03-14-2022 Note Orthopaedic Discharg e Summary Patient ID: Rios Bartlett [id number] y.o. 1965 Admit date: 03/13/2022 Discharge [...] at bedtime for constipation. ergocalciferol 1.25 MG (58116 UT) capsule Commonly known as: Vitamin D-2 [...] Medications These medications were sent to [id number] - [place], [place] - [address] [facility] [address] [facility] [id number] acetaminophen 500 mg tablet acetaminophen 500 mg tablet cephalexin 500 mg capsule cholecalciferol 50 MCG (1999 UT) tablet docusate sodium 100 mg capsule docusate sodium 100 mg tablet ergocalciferol 1.25 MG (90344 UT) capsule methocarbamol 750 mg tablet ondansetron [...] clean dressing. Follow-up visit: Follow-up with Ambrosio Zavaleta MD in 10-14 days at [facility] Orthopa[facility] Clinic [phone] Hospital Course: Rios Bartlett was admitted on 03/13/2022 and underwent the aforementioned procedure. Post-operatively, he had adequate pain control and physical therapy to be able to be discharged from the hospital. DVT prophylaxis consisted of Lovenox only while admitted and none on discharge . Signed: Ambrosio Zavaleta MD 3:48 PM 04/02/2022 [facility] 03-14-2022 Note This report has been cancelled. [facility] 03-14-2022 Note Pt to discharge home with a rolling walker script. [facility] 03-14-2022 Note Physical Therapy Physical Therapy [...] stair negotiation at home 03/14/22 03/28/22 -- [facility] 03-14-2022 Note Occupational Therapy Occupational Therapy [...] of Home: House Lives With: Spouse, Family (MIL lives with him (dementia) and Aunt who [...] Level of Function Prior Function Level of [place]: Independent with ADLs and functional transfers Vocational: [...] Eating meals?: None (Independent) Total Score OT [facility]: 21 ---- (more content not included)... [facility] 03-14-2022 Note Orthopedic Progress Note Status post Procedure(s) with comments: L4-L5 DECOMPRESSION WITH INTERBODY FUSION (Left) - C-ARM, SYNTHES, KAMALJIT TABLE, SSEP#[id number], REPS NOTIFIED RP. SUBJECTIVE: Patient seen and [...] days from the date of surgery Ambrosio Zavaleta MD Orthopaedic Surgery Resident, PGY-IV Personal pager: [phone] 03/14/2022 [facility] 03-13-2022 Note Patient: Rios holloway Procedure Summary Date: 03/13/22 Room / Location: [facility] OPERATING ROOM 12 / [facility] Operating Room Anesthesia Start: 734 Anesthesia [...] Hydration status: acceptable No notable events documented. [facility] 03-13-2022 Note Airway Date/Time: 03/13/2022 7:43 AM Urgency: elective Airway not difficult (done by medical student lawrence aguirre MS3) General Information and Staff Patient location during procedure: OR Anesthesiologist: Sara Felder MD Resident/PROJECT MGR/CAA: KRYSTAL Thompson Performed: other anesthesia staff Indications [...] Big neck.2 hand BMV with oral airway [facility] 03-13-2022 Note Patient: Rios holloway Procedure Information Date/Time: 03/13/22 0730 Procedure: L4-L5 DECOMPRESSION WITH INTERBODY FUSION (Spine Lumbar) - C-ARM, SYNTHES, KAMALJIT TABLE, SSEP#[id number], REPS NOTIFIED RP. Location: [facility] OPERATING ROOM 12 / [facility] Operating Room Surgeons: Cheikh Walker MD [...] consented to blood products. Additional Equipment Requests [facility] Evaluation + Plan note Future Appointments Appointment Date:12/30/2022 02:40:00 PM Scheduled Provider:Todd GOODWIN MD Location:[facility] Appointment Type: Procedure 30 General Surgery [employer] Evaluation note Diagnosis Acute exacerbation of chronic low back pain- Primary documented in this encounter [employer] Phone: evaluation note* Diagnosis Snoring- Primary Other dyspnea and respiratory abnormality Witnessed episode of apnea Frequent nocturnal awakening Other sleep disturbances Nocturia RLS (restless legs syndrome) Restless legs syndrome (RLS) Suspected sleep apnea documented in this encounter [facility] course Narrative No data available for this section General Surgery [facility] Hospital Discharge instructions* Attachments The following attachments cannot be sent through Care Everywhere. * Low Back Pain: Exercises (Chilean) * Back Pain (Chilean) [facility] Hospital Discharge instructions No data available for this section General Surgery Crunched Progress note No data available for this section General Surgery Crunched Summary Purpose Family History No Family History Records FoundNo Family History Records FoundNo Family History Records FoundNo Family History Records FoundNo Family History Records FoundNo Family History Records FoundNo Family History Records FoundNo Family History Records Found Advance Directives No Advanced Directives Records FoundDocuments on File Type Date Recorded 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 Expl 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 ACP-Advance Directive 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 Automatic Additional Source Comments (unrecognized sect ion and content) No Status Records FoundNo Status Records FoundNo Status Records FoundNo Status Records FoundNo Status Records FoundNo Status Records FoundNo Status Records FoundNo Status Records Found INFORMATION SOURCE (unrecogn ized section and content) DATE CREATED AUTHOR 12/22/2017 [facility] DATE CREATED AUTHOR AUTHOR'S ORGANIZ ATION 02/09/2021 [facility] DATE CREATED AUTHOR AUTHOR'S ORGANIZ ATION 12/05/2021 [facility] DATE CREATED AUTHOR AUTHOR'S ORGANIZ ATION 03/05/2022 [facility] DATE CREATED AUTHOR AUTHOR'S ORGANIZ ATION 05/08/2022 [facility] DATE CREATED AUTHOR AUTHOR'S ORGANIZ ATION 11/08/2022 [facility] DATE CREATED AUTHOR AUTHOR'S ORGANIZ ATION 06/26/2023 [facility] DATE CREATED AUTHOR AUTHOR'S ORGANIZ ATION 08/10/2024 [facility] Reason for Visit (unrecogniz ed section and content) Reason Comments Back Pain pt states he has chr onic low back pain, states the pain has gotten worse in the past 2 days with some increased activity. Pt states he has an appointment with his ortho Dr, in [place] on 02/21 Reason Comments Sleep Apnea Trouble falling and/or staying asleep New Patient Medication Follow-up Ordered Prescriptions (unrec ognized section and content) [...] 2 tablet 2 tablet, Oral, ONCE, On 8/14/21 at 1200, For 1 dose, Maximum dose [...] dose 1300 (Given - Provid er: Janet Hermosillo RN) orphenadrine (NORFLEX) injection 60 mg 60 mg, Intramuscular, ONCE, On 02/08/21 at 1200, For 1 dose 1238 (Not Given - Pr ovider: Janet Hermosillo RN - Reason: Patient/family refused - Comment: pt has no ride home) Patient Care team informatio n (unrecognized section and content) Casino Manager Relationship Specialty Start Date End Date Mary Kline MD PCP - General Family Medicine 01/11/18 Source Comments (unrecognize d section and content) In the event this informatio n is protected by the Federal Confidentiality of Alcohol and Drug Abuse Patient Records regulations: The Federal rules restrict any use of the information to criminally investigate or prosecute any alcohol or drug abuse patient.[facility] FOR RECORDS PERTAINING TO PATIENTS WHO ARE [...] BE BASED ON THE PRIMARY CLINICAL RECORDS. [employer] [facility]. provides no warranty or guarantee of the accuracy or completeness of information in this document.
[2024-09-06 16:55] LABS: Basophils Absolute Auto 0.1 10^3/uL (0.0-0.1); Basophils Percent Auto 0.4 % (0.2-2.0); Eosinophils Absolute Auto 0.1 10^3/uL (0.0-0.7); Hematocrit 48.5 % (42.0-54.0); Hemoglobin 15.8 g/dL (14.0-18.0); Immature Granulocytes Abs Auto 0.04 10^3/uL (0.00-0.03); Immature Granulocytes Pct Auto 0.3 % (0.0-0.5); Lymphocytes Absolute Auto 3.2 10^3/uL (1.2-3.8); Lymphocytes Percent Auto 27.1 % (20.5-60.0); Mean Corpuscular HGB Conc 32.6 g/dL (29.9-35.2); Mean Corpuscular Hemoglobin 31.8 pg (25.9-34.0); Mean Corpuscular Volume 97.6 fL (80.0-94.0); Mean Platelet Volume 8.6 fL (9.5-13.5); Monocytes Absolute Auto 0.8 10^3/uL (0.3-0.8); Monocytes Percent Auto 6.8 % (1.7-12.0); Neutrophils Absolute Auto 7.6 10^3/uL (1.4-6.5); Neutrophils Percent Auto 64.4 % (43.0-75.0); Platelet Count 217 10^3/uL (150-450); Red Blood Count 4.97 10^6/uL (4.70-6.10); Red Cell Distribution Width 14.1 % (11.0-15.0); White Blood Count 11.8 10^3/uL (4.0-11.0)
[2024-09-06 17:15] LABS: Estimated Average Glucose 114 mg/dL; Glycohemoglobin A1C 5.6 % (4.5-6.2)
[2024-09-06 17:23] LABS: Alanine Aminotransferase 35 U/L (16-63); Albumin Level 3.4 g/dL (3.4-5.0); Alkaline Phosphatase 72 U/L (46-116); Anion Gap 10.2; Aspartate Amino Transferase 22 U/L (15-37); BUN Creatinine Ratio 13.4; Bilirubin Total 0.5 mg/dL (0.2-1.0); Calcium 9.1 mg/dL (8.5-10.1); Carbon Dioxide 31.2 mmol/L (21.0-32.0); Chloride 105 mmol/L (98-107); Estimated GFR (African America >60 (>=60 mL/min/1.73m^2); Estimated GFR (Non-African Ame 58 (>=60 mL/min/1.73m^2); Free T3 2.48 pg/mL (2.18-3.98); Globulin 3.4 g/dL; Glucose 102 mg/dL (74-106); Potassium 4.4 mmol/L (3.5-5.1); Sodium 142 mmol/L (136-145); Thyroid Stimulating Hormone 1.727 uIU/mL (0.358-3.740); Total Protein 6.8 g/dL (6.4-8.2)
== END 2024-09-06 16:27 | disposition home or self-care (01) ==
LOC: LAB 16:28
PROVIDERS: PCP Family Medicine; Visit Provider Family Medicine
DX: R35.0 Frequency of micturition (principal); M54.59 Other low back pain; N39.0 Urinary tract infection, site not specified; R30.0 Dysuria; R10.9 Unspecified abdominal pain; R73.09 Other abnormal glucose; E03.9 Hypothyroidism, unspecified; R53.83 Other fatigue; I50.30 Unspecified diastolic (congestive) heart failure; I11.0 Hypertensive heart disease with heart failure
CPT/HCPCS: 36415; 80053; 83036; 83880; 84436; 84443; 84481; 85025

== ENCOUNTER 2024-09-27 09:24 | Outpatient (OUT) | payer OTHER, SELFPAY ==
--- NOTE | 2024-09-27 09:29 | CT_ITS ---
The [address] [address] Patient Name: SHAKILA LOPEZ MRN: [id number] date: 1965 Sex: M Assigned Patient Location: CT Current Patient Location: CT Accession/Order Number: [id number] Exam Date: 09/27/2024 11:26 Report Date: 09/27/2024 11:36 At the request of: MARY CORONADO MD Procedure: CT abdomen pelvis wo/w con CT ABDOMEN AND PELVIS WITHOUT AND WITH INTRAVENOUS CONTRAST CLINICAL DATA: Acute abdominal distention, low back pain and urinary frequency. COMPARISON: 06/23/2023 Spiral images were obtained through the abdomen and pelvis before and after intravenous administration of 100 mL of Omnipaque 300. This CT exam was performed using one or more following dose reduction techniques: Automated exposure control, adjustment of the mA and/or kV according to patient size, or use of iterative reconstruction technique. Limited cuts through the lung bases show minimal atelectasis. The kidneys are normal in size, position and contour. There is minor perinephric fibrofatty stranding. There is a potential punctate stone at the upper pole of the right kidney on the reconstructed images. No additional renal, ureteral or bladder stones are seen precontrast. Following contrast administration, the renal nephrograms are symmetric. No renal mass lesions are noted. No hydronephrosis is seen. The urinary bladder shows no obvious abnormalities for the degree of distention. No calcified gallstones are identified. There is fatty infiltration of the liver. No hepatic masses are seen. The spleen and pancreas show no acute findings. There is a similar tiny left adrenal nodule, likely adenoma.. The abdominal aorta is normal caliber and there is mild atherosclerotic plaque. No enlarged lymph nodes or ascites are identified. The small bowel loops are normal caliber. A small amount of colonic stool is present. Postoperative and degenerative changes are visualized at the spine. Images through the pelvis show a tiny umbilical hernia containing fat. There are normal caliber small bowel loops. The appendix is not well seen. There is a small amount of distal colonic stool. No diverticular disease is noted. The prostate is normal size and contains calcifications. There are mildly patulous inguinal rings containing fat. No ascites is seen. CT/CT abdomen pelvis wo/w con IMPRESSION: POSSIBLE RIGHT NEPHROLITHIASIS. NO BOWEL OR URINARY TRACT OBSTRUCTION. FATTY LIVER. NO ACUTE FINDINGS. Impression dictated by: Tamiko Patino M.D.09/27/2024 11:36 AM Dictation Location: [place] [address] Electronically authenticated by: [id number] Y Date: 09/27/2024 11:36
--- OUTSIDE RECORDS SUMMARY | 2024-09-27 09:30 | XMS_ITS | CCD ---
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 Role Phone OLIVIA ZAMAN Unavailable Unavailable MARY KLINE Unavailable Unavailable OLIVIA ZAMAN Unavailable Unavailable MARY KLINE Unavailable Unavailable Mary Kline MD Primary Care Provider [phone] MARY KLINE Primary Care Unavailable MARY KLINE [...] Consulting Unavailable Mary Kline Primary Care Physician [phone] Todd GOODWIN Attending Unavailable Todd GOODWIN Attending Unavailable Mary Kline MD Primary Care Provider [phone] LONDON CARLSON Attending Unavailable MARY KLINE Primary Care Unavailable Allergies Allergy Classification Reported Allergen(s) Allergy Type Date of Onset Reaction(s) Facility Opioid Agonists (1 source) Morphine Drug Allergy 02-23-2018 [facility] (7 sources) Morphine; Translations: [MORPHINE] Drug Allergy 01-28-2018 Itching [facility] Repository Medications Current Medications Medication Drug Class(es) [...] Facility Physician Referralon 023 Physician Referral [id number] [facility] RAD - CT Reporton 06-25-2023 RAD - CT Report [id number]#[id number] [facility] Ambulatory Visit Summaryon 0 12-30-2022 Ambulatory [...] depressive disorder Skin tags, multiple acquired Normal [facility] General Surgery Office/Clini c Noteon 12-30-2022 [...] inactivated - Not Given Patient Refuses Normal [facility] Comment on above: Result Comment: Elec tronically Signed By: BUDDY TRAN, Todd Maher\.br\Date and Time Signed: 12/30/22 15:11 EDT Pre-Certification Formon Pre-Certification Form [id number]:127 Normal [facility] Ambulatory Visit Summaryon 0 12-16-2022 Ambulatory [...] TRAN, Todd Maher Where: General Surgery Nill/Said [place] Normal [facility] CBC AUTO DIFFon 11-04-2022 BASO # 0.0 103/ul Normal 0.0-0.1 [facility] Comment on above: Performed By: #### T SH, T4, FT3, CMP, LIPID #### [facility] [address] [place] [address] Dr. Ayush Rice Basophils/100 WBC (Bld) 0.3 % Normal 0.2-2.0 [facility] Comment on above: Performed By: #### T SH, T4, FT3, CMP, LIPID #### [facility] [address] [place] [address] Dr. Ayush Rice EO # 0.2 103/ul Normal 0.0-0.7 [facility] Comment on above: Performed By: #### T SH, T4, FT3, CMP, LIPID #### [facility] [address] [place] [address] Dr. Ayush Rice Eosinophils/100 WBC (Bld) 1.5 % Normal 0.9-7.0 [facility] Comment on above: Performed By: #### T SH, T4, FT3, CMP, LIPID #### [facility] [address] [place] [address] Dr. Ayush Rice Erythrocyte distribution width (RBC) [Ratio] 14.2 % Normal 11.0-15.0 [facility] Comment on above: Performed By: #### T SH, T4, FT3, CMP, LIPID #### [facility] [address] [place] [address] Dr. Ayush Rice Hematocrit (Bld) [Volume fraction] 49.3 % Normal 42.0-54.0 [facility] Comment on above: Performed By: #### T SH, T4, FT3, CMP, LIPID #### [facility] [address] [place] [address] Dr. Ayush Rice Hemoglobin (Bld) [Mass/Vol] 16.2 g/dL Normal 14.0-18.0 [facility] Comment on above: Performed By: #### T SH, T4, FT3, CMP, LIPID #### [facility] [address] [place] [address] Dr. Ayush Rice IG # 0.03 10e3/ul Normal 0.00-0.03 [facility] Comment on above: Performed By: #### T SH, T4, FT3, CMP, LIPID #### [facility] [address] [place] [address] Dr. Ayush Rice IG % 0.3 % Normal 0.0-0.5 [facility] Comment on above: Performed By: #### T SH, T4, FT3, CMP, LIPID #### [facility] [address] [place] [address] Dr. Ayush Rice LYMPH # 2.6 103/ul Normal 1.2-3.8 [facility] Comment on above: Performed By: #### T SH, T4, FT3, CMP, LIPID #### [facility] [address] [place] [address] Dr. Ayush Rice Lymphocytes/100 WBC (Bld) 24.9 % Normal 20.5-60.0 [facility] Comment on above: Performed By: #### T SH, T4, FT3, CMP, LIPID #### [facility] [address] [place] [address] Dr. Ayush Rice MANUAL DIFF REQ NO Normal [facility] Comment on above: Performed By: #### T SH, T4, FT3, CMP, LIPID #### [facility] [address] [place] [address] Dr. Ayush Rice MCH (RBC) [Entitic mass] 30.1 pg Normal 25.9-34.0 [facility] Comment on above: Performed By: #### T SH, T4, FT3, CMP, LIPID #### [facility] [address] [place] [address] Dr. Ayush Rice MCHC (RBC) [Mass/Vol] 32.9 g/dL Normal 29.9-35.2 [facility] Comment on above: Performed By: #### T SH, T4, FT3, CMP, LIPID #### [facility] [address] [place] [address] Dr. Ayush Rice MCV (RBC) [Entitic vol] 91.5 fL Normal 80.0-94.0 [facility] Comment on above: Performed By: #### T SH, T4, FT3, CMP, LIPID #### [facility] [address] [place] [address] Dr. Ayush Rice MONO # 0.8 103/ul Normal 0.3-0.8 [facility] Comment on above: Performed By: #### T SH, T4, FT3, CMP, LIPID #### [facility] [address] [place] [address] Dr. Ayush Rice Monocytes/100 WBC (Bld) 7.4 % Normal 1.7-12.0 [facility] Comment on above: Performed By: #### T SH, T4, FT3, CMP, LIPID #### [facility] [address] [place] [address] Dr. Ayush Rice NEUT # 7.0 103/ul Critically high 1.4-6.5 [facility] Comment on above: Performed By: #### T SH, T4, FT3, CMP, LIPID #### [facility] [address] [place] [address] Dr. Ayush Rice Neutrophils/100 WBC (Bld) 65.6 % Normal 43.0-75.0 [facility] Comment on above: Performed By: #### T SH, T4, FT3, CMP, LIPID #### [facility] [address] [place] [address] Dr. Ayush Rice Platelet mean volume (Bld) [Entitic vol] 8.5 fL Critically low 9.5-13.5 [facility] Comment on above: Performed By: #### T SH, T4, FT3, CMP, LIPID #### [facility] [address] [place] [address] Dr. Ayush Rice PLT 232 103/ul Normal 150-450 [facility] Comment on above: Performed By: #### T SH, T4, FT3, CMP, LIPID #### [facility] [address] [place] [address] Dr. Ayush Rice RBC 5.39 106/ul Normal 4.70-6.10 [facility] Comment on above: Performed By: #### T SH, T4, FT3, CMP, LIPID #### [facility] [address] [address] [address] yAush Rice WBC 10.6 103/ul Normal 4.0-11.0 [facility] Comment on above: Performed By: #### T SH, T4, FT3, CMP, LIPID #### [facility] [address] [place] [address] Dr. Auysh Rice FREE T3on 11-04-2022 FREE T3 2.93 pg/mlL Normal 2.18-3.98 [facility] Comment on above: Performed By: #### T SH, T4, FT3, CMP, LIPID #### [facility] [address] [place] [address] Dr. Ayush Rice GLYCOHEMOGLOBIN A1Con 2022 ADA RECOMMENDATION SEE BELOW Normal [facility] Comment on above: Result Comment: ADA RECOMMENDED LIMIT 4.0 - 6.0 ADA THERAPEUTIC TARGET < 7.0 ACTION SUGGESTED > 7.0 Performed By: #### A 1C #### [facility] [address] [place] [address] Dr. Ayush Rice Glucose [Mass/Vol] 126 mg/dL Normal [facility] Comment on above: Performed By: #### A 1C #### [facility] [address] [place] [address] Dr. Ayush Rice HbA1c (Bld) [Mass fraction] 6.0 % Normal 4.5-6.2 [facility] Comment on above: Performed By: #### A 1C #### [facility] [address] [place] [address] Dr. Ayush Rice LIPID PROFILEon 11-04-2022 CHOL-HDL RATIO NORM SEE BELOW Normal [facility] Comment on above: Result Comment: 3.3 - 4.4 LOW RISK 4.4 - 7.1 AVERAGE RISK 7.1 - 11.0 MODERATE RISK >11.0 HIGH RISK Performed By: #### T SH, T4, FT3, CMP, LIPID #### [facility] [address] [address] [address] Ayush Rice Cholesterol [Mass/Vol] 190 mg/dL Normal <=200 [facility] Comment on above: Performed By: #### T SH, T4, FT3, CMP, LIPID #### [facility] [address] [address] [address] Ayush Rice Cholesterol in HDL [Mass/Vol] 39 mg/dL Critically low 40-60 [facility] Comment on above: Performed By: #### T SH, T4, FT3, CMP, LIPID #### [facility] [address] [place] [address] Dr. Ayush Rice Cholesterol in LDL [Mass/Vol] 122.0 mg/dL Normal [facility] Comment on above: Performed By: #### T SH, T4, FT3, CMP, LIPID #### [facility] [address] [address] [address] Ayush Rice Cholesterol.total/ Cholesterol in HDL [Mass ratio] 4.9 {ratio} Normal [facility] Comment on above: Performed By: #### T SH, T4, FT3, CMP, LIPID #### [facility] [address] [address] [address] Ayush Rice HDL NORMAL > or = 60 mg/dl - LO W CARDIOVASCULAR RISK <40 mg/dl - HIGH CARDIOVASCULAR RISK Normal [facility] Comment on above: Performed By: #### T SH, T4, FT3, CMP, LIPID #### [facility] [address] [place] [address] Dr. Ayush Rice LDL CALC NORMAL SEE BELOW Normal [facility] Comment on above: Result Comment: <100 mg/dl OPTIMAL 100 - 129 mg/dl NEAR OR ABOVE OPTIMAL 130 - 159 mg/dl BORDERLINE HIGH 160 - 189 mg/dl HIGH >190 mg/dl VERY HIGH Performed By: #### T SH, T4, FT3, CMP, LIPID #### [facility] [address] [place] [address] Dr. Ayush Rice Triglyceride [Mass/Vol] 145 mg/dL Normal <=150 [facility] Comment on above: Performed By: #### T SH, T4, FT3, CMP, LIPID #### [facility] [address] [place] [address] Dr. Ayush Rice VLDL CALC 29.0 mg/dL Normal [facility] Comment on above: Performed By: #### T SH, T4, FT3, CMP, LIPID #### [facility] [address] [place] [address] Dr. Ayush Rice PROF 14(COMP METB)on 023 Albumin [Mass/Vol] 3.8 g/dL Normal 3.4-5.0 [facility] Comment on above: Performed By: #### T SH, T4, FT3, CMP, LIPID #### [facility] [address] [place] [address] Dr. Ayush Rice Albumin/Globulin [Mass ratio] 1.1 {ratio} Normal [facility] Comment on above: Performed By: #### T SH, T4, FT3, CMP, LIPID #### [facility] [address] [place] [address] Dr. Ayush Rice ALP [Catalytic activity/Vol] 103 U/L Normal 46-116 [facility] Comment on above: Performed By: #### T SH, T4, FT3, CMP, LIPID #### [facility] [address] [address] [address] Ayush Rice ALT [Catalytic activity/Vol] 40 U/L Normal 16-63 [facility] Comment on above: Performed By: #### T SH, T4, FT3, CMP, LIPID #### [facility] [address] [place] [address] Dr. Ayush Rice Anion gap [Moles/Vol] 12.4 mmol/L Normal [facility] Comment on above: Performed By: #### T SH, T4, FT3, CMP, LIPID #### [facility] [address] [address] [address] Ayush Rice AST [Catalytic activity/Vol] 28 U/L Normal 15-37 [facility] Comment on above: Performed By: #### T SH, T4, FT3, CMP, LIPID #### [facility] [address] [place] [address] Dr. Ayush Rice Bilirubin [Mass/Vol] 0.9 mg/dL Normal 0.2-1.0 [facility] Comment on above: Performed By: #### T SH, T4, FT3, CMP, LIPID #### [facility] [address] [place] [address] Dr. Ayush Rice Calcium [Mass/Vol] 9.1 mg/dL Normal 8.5-10.1 [facility] Comment on above: Performed By: #### T SH, T4, FT3, CMP, LIPID #### [facility] [address] [place] [address] Dr. Ayush Rice Chloride [Moles/Vol] 107 mmol/L Normal 98-107 [facility] Comment on above: Performed By: #### T SH, T4, FT3, CMP, LIPID #### [facility] [address] [place] [address] Dr. Ayush Rice CO2 [Moles/Vol] 27.9 mmol/L Normal 21.0-32.0 [facility] Comment on above: Performed By: #### T SH, T4, FT3, CMP, LIPID #### [facility] [address] [place] [address] Dr. Ayush Rice Creatinine [Mass/Vol] 1.18 mg/dL Normal 0.70-1.30 [facility] Comment on above: Performed By: #### T SH, T4, FT3, CMP, LIPID #### [facility] [address] [place] [address] Dr. Ayush Rice EGFR-AF GUAMANIAN >60 Normal >=60 [facility] Comment on above: Performed By: #### T SH, T4, FT3, CMP, LIPID #### [facility] [address] [place] [address] Dr. Ayush Rice EGFR-NON AF GUAMANIAN >60 Normal >=60 [facility] Comment on above: Performed By: #### T SH, T4, FT3, CMP, LIPID #### [facility] [address] [place] [address] Dr. Ayush Rice Globulin (S) [Mass/Vol] 3.4 g/dL Normal [facility] Comment on above: Performed By: #### T SH, T4, FT3, CMP, LIPID #### [facility] [address] [address] [address] Ayush Rice Glucose [Mass/Vol] 106 mg/dL Normal 74-106 [facility] Comment on above: Performed By: #### T SH, T4, FT3, CMP, LIPID #### [facility] [address] [place] [address] Dr. Ayush Rice Potassium [Moles/Vol] 4.3 mmol/L Normal 3.5-5.1 [facility] Comment on above: Performed By: #### T SH, T4, FT3, CMP, LIPID #### [facility] [address] [place] [address] Dr. Ayush Rice Protein [Mass/Vol] 7.2 g/dL Normal 6.4-8.2 [facility] Comment on above: Performed By: #### T SH, T4, FT3, CMP, LIPID #### [facility] [address] [place] [address] Dr. Ayush Rice Sodium [Moles/Vol] 143 mmol/L Normal 136-145 [facility] Comment on above: Performed By: #### T SH, T4, FT3, CMP, LIPID #### [facility] [address] [place] [address] Dr. Ayush Rice Urea nitrogen [Mass/Vol] 15.0 mg/dL Normal 7.0-18.0 [facility] Comment on above: Performed By: #### T SH, T4, FT3, CMP, LIPID #### [facility] [address] [place] [address] Dr. Ayush Rice Urea nitrogen/Creatinin e [Mass ratio] 12.7 mg/mg Normal [facility] Comment on above: Performed By: #### T SH, T4, FT3, CMP, LIPID #### [facility] [address] [address] [address] Ayush Rice T4on 11-04-2022 T4 [Mass/Vol] 7.30 ug/dL Normal 4.50-12.10 [facility] Comment on above: Performed By: #### T SH, T4, FT3, CMP, LIPID #### [facility] [address] [address] [address] Ayush Rice TSHon 11-04-2022 TSH 1.301 uIU/mL Normal 0.358-3.740 [facility] Comment on above: Performed By: #### T SH, T4, FT3, CMP, LIPID #### [facility] [address] [place] [address] Dr. Ayush Rice VITAMIN D 25 OHon 11-04-2022 VIT D 25-OH 20.0 ng/mL Normal [facility] Comment on above: Performed By: #### T SH, T4, FT3, CMP, LIPID #### [facility] [address] [place] [address] Dr. Ayush Rice VIT D RANGES SEE BELOW Normal [facility] Comment on above: Result Comment: <20 ng/mL Vit D deficient 20 - <30 ng/mL Vit D insufficient 30 - 100 ng/mL Vit D sufficient >100 ng/mL Potential Toxicity Performed By: #### T SH, T4, FT3, CMP, LIPID #### [facility] [address] [place] [address] Dr. Ayush Rice ECHOCARDIO M/2D COMPLETEon 0 08-03-2022 ECHOCARDIO M/2D COMPLETE Patient: IROS BARTLETT Exam Date: 08/03/2022 : 1965 Gender:M Ordering : DR MARY KLINE . Admission #: [id number] Family : Order #: [id number] CLICK HERE TO VIEW EXAM ECHOCARDIOGRAM REPORT [...] on 08/04/2022 at 19:15 Normal [facility] NM STRESS/REST MULTIon 08-03 NM STRESS/REST MULTI Patient: RIOS BARTLETT Exam Date: 08/03/2022 : 1965 Gender:M Ordering : DR MARY KLINE . Admission #: [id number] Family : Order #: [id number] CLICK HERE TO VIEW EXAM RADIOLOGY REPORT [...] on 08/10/2022 at 13:48 Approved by: Olivia aMrie MD on 08/10/2022 at 13:50 Normal [facility] XR CHEST 2 Von 07-30-2022 XR [...] by: OLIVIA BECKER Date: 2022-07-30 17:15 Normal [facility] XR KNEE LT 4V or >on [...] by: OLIVIA BECKER Date: 2022-07-30 17:16 Normal [facility] Office Visiton 03-27-2022 Follow-up visit [id number] Alexis Bartlett tt 1965 M Date Provider Department Center 03/27/2022 Lora-CHEIKH WALKER MP ORTHO MPORTHO No family history on file Level of Service:61623 [place] POSTOP FOLLOW UP VISIT RELATED TO ORIGINAL PX Reason for Visit and Comments: Pain [136] Normal [facility] 36on 03-18-2022 36 Pt was informed and verbalized understanding. Normal [facility] 36on 03-17-2022 36 Pt is complaining he is having a hard time with pain control. Most of the reported pain is in both of his legs and described as burning pain. Pt would like to know if there is anything else that can be prescribed along with the oxycodone he is currently taking? Please advise. Normal [facility] BASIC METABOLIC PANELon 02-26 Anion gap [Moles/Vol] 5 mmol/L Normal <=30 [facility] Comment on above: Performed By: #### L AB15 #### [facility] ([facility]) [address] [place] [address] Calcium [Mass/Vol] 8.5 mg/dL Low 8.6-10.[address] [facility] Comment on above: Performed By: #### L AB15 #### [facility] ([facility]) [address] [place] [address] Chloride [Moles/Vol] 102 mmol/L Normal 98-107 [facility] Comment on above: Performed By: #### L AB15 #### [facility] ([facility]) [address] [place] [address] CO2 [Moles/Vol] 31 mmol/L Normal 21-31 [facility] Comment on above: Performed By: #### L AB15 #### [facility] ([facility]) [address] [place] [address] Creatinine [Mass/Vol] 0.96 mg/dL Normal 0.70-1.30 [facility] Comment on above: Performed By: #### L AB15 #### [facility] ([facility]) [address] [place] [address] GLOMERULAR FILTRATION RATE ML/MIN/1.73 SQ M.PREDICTED 88.6 mL/min/1.73m*2 Normal >60.0 [facility] Comment on above: Result Comment: The [facility]???s estimated glomerular filtration rate (eGFR) will no [...] individuals. Performed By: #### L AB15 #### [facility] ([facility]) [address] [place] [address] Glucose [Mass/Vol] 112 mg/dL High 70-[address] [facility] Comment on above: Performed By: #### L AB15 #### [facility] ([facility]) [address] [place] [address] Potassium [Moles/Vol] 4.7 mmol/L Normal 3.5-5.1 [facility] Comment on above: Performed By: #### L AB15 #### [facility] ([facility]) [address] [place] [address] Sodium [Moles/Vol] 138 mmol/L Normal 136-[address] [facility] Comment on above: Performed By: #### L AB15 #### [facility] ([facility]) [address] [place] [address] Urea nitrogen [Mass/Vol] 16 mg/dL Normal 7-25 [facility] Comment on above: Performed By: #### L AB15 #### [facility] ([facility]) [address] [place] [address] UREA NITROGEN/CREATININ E (MASS RATIO) IN SER/PLAS 16.67 Normal [facility] Comment on above: Performed By: #### L AB15 #### [facility] ([facility]) [address] [place] [address] CBCon 03-14-2022 Erythrocyte distribution width (RBC) [Ratio] 13.8 % Normal 11.5-15.0 [facility] Comment on above: Performed By: #### L [id number] #### [facility] ([facility]) [address] [place] [address] ERYTHROCYTE MEAN CORPUSCULAR HEMOGLOBIN CONCENTRATION (G/DL) BY AUTOMATED 33.2 g/dL Normal 32.0-35.0 [facility] Comment on above: Performed By: #### L [id number] #### [facility] ([facility]) [address] [place] [address] Hematocrit (Bld) [Volume fraction] 43.1 % Normal 39.0-55.0 [facility] Comment on above: Performed By: #### L [id number] #### [facility] ([facility]) [address] [place] [address] Hemoglobin (Bld) [Mass/Vol] 14.3 g/dL Normal 13.0-17.0 [facility] Comment on above: Performed By: #### L [id number] #### [facility] ([facility]) [address] [place] [address] MCH (RBC) [Entitic mass] 30.4 pg Normal 27.0-33.0 [facility] Comment on above: Performed By: #### L [id number] #### [facility] ([facility]) [address] [place] [address] MCV (RBC) [Entitic vol] 91.7 fL Normal 82.0-98.0 [facility] Comment on above: Performed By: #### L [id number] #### [facility] ([facility]) [address] [place] [address] PLATELETS (10*3/UL) IN BLOOD AUTOMATED COUNT 203 10*3/uL Normal 150-400 [facility] Comment on above: Performed By: #### L [id number] #### [facility] ([facility]) [address] [place] [address] RBC (Bld) [#/Vol] 4.70 10*6/uL Normal 4.20-5.70 [facility] Comment on above: Performed By: #### L [id number] #### [facility] [facility] [address] [place] [address] WBC (Bld) [#/Vol] 15.55 10*3/uL High 4.00-10.60 [facility] Comment on above: Performed By: #### L [id number] #### [facility] ([facility]) [address] [place] [address] Letter (Out)on 03-14-2022 Letter (Out) [id number] Tam tt 1965 M Date Provider Department Center 03/14/2022 [id number], GENERIC PRO*INIT None No family history on file Normal [facility] POCT GLUCOSE METER UNSOLICIT ED RESULTSon 03-14-2022 Glucose [Mass/Vol] 119 mg/dL High 70-[address] [facility] Comment on above: Result Comment: jmat analilia Performed By: #### L [id number] ####[facility] ([facility])[address] [place] [address] Glucose [Mass/Vol] 123 mg/dL High 70-[address] [facility] Comment on above: Result Comment: rsha w2 Performed By: #### L [id number] ####[facility] ([facility])[address] [place] [address] HPon 03-13-2022 HP History Of Present I [...] procedure: 1. L4-L5 posterior lumbar spine decompression (97313). 2. L4-L5 transforaminal lumbar interbody fusion using autograft, crushed cancellous allograft, and machine threaded bone dowel spacer ; and posterolateral fusion using autograft, crushed cancellous allograft (26278, 47267). 3. L4-L5 posterior spinal instrumentation using USS system from [employer] (09954). 4. Local bone autograft harvesting as well as use of crushed cancellous allograft (29808, ). 5. Use of intraoperative fluoroscopy (42311). Planned procedure date: 03/13/22 Discussed proposed procedure [...] at the same or adjacent level. Normal [facility] NURSNOTEon 03-13-2022 NURSNOTE FAMILY UPDATES XIONG D TO WR, NO FAMILY NEEDS AT THIS TIME. Normal [facility] OPNOTEon 03-13-2022 OPNOTE L4-L5 DECOMPRESSION WITH INTERBODY FUSION (L) Operative Note Date: 03/13/2022 Location: [facility] OR Name: Rios Bartlett, : 1965, Surgeons: Cheikh Walker - Primary Manager Human Resources: Ambrosio Zavaleta M.D. 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 Operation: 1. L4-L5 posterior lumbar spine decompression (94678). 2. L4-L5 transforaminal lumbar interbody fusion using autograft, crushed cancellous allograft, [employer] and machine threaded bone dowel spacer 11 mm; and posterolateral fusion using autograft, crushed cancellous allograft and [employer] (54138, 25140). 3. L4-L5 posterior spinal instrumentation using USS system from [employer] (77227). 4. Local bone autograft harvesting as well as use of crushed cancellous allograft (24010, 56242). 5. Use of intraoperative fluoroscopy (18449). 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 Procedure Summary Anesthesia: General ASA: III Position: Prone position on the Kamaljit table in reverse Trendelenburg position. Estimated Blood Loss: 200 mL Total IV Fluids: 1300 mL Drains: Hemovac Urethral Catheter Non-latex;Other (Comment) 16 Fr. (Active) Implants Type Name Action Serial No. Bone TISS BONE,CANC,CHIPS,PRES,60CC - [id number] - [id number] Implanted [id number] Allograft Tissue TISSUE VIVIGEN, 10 - [id number] - [id number] Implanted [id number] Allograft Tissue TISSUE VIVIGEN, 10[id number] - [id number] Implanted [id number] Bone TISS ALLOGRAFT,TP11MM,6X1X2.5 - [id number] - [id number] Implanted [id number] Screw SCREW,SIDE-OPEN,7.0M,50MM - [id number] Implanted Clamp COLLAR,TI,GROOVES - [id number] Implanted Nut TI-NUT,11M-WIDTH,ACROSS-FLAT S - [id number] Implanted Pin HILDA,6.0M,TI-HARD,50M - [id number] Implanted Staff: Manager Of School: Freya Loja RN Scrub Person: Tabatha German [...] has been seen in preoperative clinic at [facility]. Procedure: The patient was taken to the [...] anterior co (more content not included)... Normal [facility] POCT GLUCOSE METER UNSOLICIT ED RESULTSon 03-13-2022 Glucose [Mass/Vol] 166 mg/dL High 70-[address] [facility] Comment on above: Result Comment: iede ldu Performed By: #### L [id number] #### [facility] ([facility]AK[facility]) [address] [place] [address] Glucose [Mass/Vol] 98 mg/dL Normal 70-[address] [facility] Comment on above: Result Comment: epaw low Performed By: #### L [id number] #### [facility] ([facility]) [address] [place] [place] [address] VITAMIN D 25 HYDROXYon 03-13 CALCIDIOL (25 [place] VITAMIN D3) (NG/ML) IN SER/PLAS 26.0 ng/mL Low 30.0-80.0 [facility] Comment on above: Result Comment: >80. 0 Toxicity possible Performed By: #### L [id number] #### [facility] ([facility]) [address] [place] [place] [address] Orders Onlyon 03-10-2022 Orders Only [id number] Alexis Bartlett tt 1965 M Date Provider Department Center 03/10/2022 1976-JL [facility] Medical No family history on file Normal [facility] SARS-COV-2 TMAon 03-10-2022 SARS-CoV-2 (COVID-19) RNA WADE+probe Ql (Unsp spec) Not detected Normal Not Detected [facility] Comment on above: Result Comment: Not detected does not preclude SARS-CoV-2 infection and should not be used as the sole basis for patient management decisions. Not detected results must be combined with clinical observations, patient history, and epidemiological information. The Aptima SARS-CoV-2 assay is a nucleic acid amplification test intended for the qualitative detection of RNA from SARS-CoV-2 isolated and purified from nasopharyngeal (KILN CLEANER), oropharyngeal (OP), nasal swab, sputum, and bronchoalveolar lavage (BAL) specimens from patients with signs and symptoms of infection who are suspected of COVID-19. Results are for the identification of SARS-CoV-2 RNA. The SARS-CoV-2 RNA is generally detectable during the acute phase of infection. The Aptima SARS-CoV-2 Assay on the [employer] and [employer] Fusion system is intended for use by laboratory personnel specifically instructed and trained in the operation of the [place] [employer] Fusion system. The Aptima SARS-CoV-2 assay is only for use under the Food and Drug Administration Emergency Use Authorization. Testing is limited to laboratories certified under the Clinical Laboratory Improvement Amendments of 1988 (CLIA), 42 U.S.C. ???263a, to perform high complexity tests. Performed By: #### L [id number] #### [facility] ([facility]) [address] [place] [address] Orders Onlyon 03-09-2022 Orders Only [id number] Alexis Bartlett tt 1965 M Date Provider Department Center 03/09/2022 FREYA GUAMAN [facility] No family history on file Normal [facility] *MRSA/MSSA DNA NASALon 03-04 *MRSA/MSSA DNA NASAL Clinical Report: (D) Specimen: NASAL SWAB Collected: 03/04/2022 12:14 Status: Final Last Updated: 03/04/2022 21:39 MSSA DNA (Final) Methicillin Susceptible Staphylococcus aureus DNA Detected MRSA DNA (Final) Negative Normal [facility] Comment on above: Performed By: #### 3 1595 #### [facility] [address] [facility] [place] [address], [facility] APTTon 03-04-2022 aPTT Coag (Bld) [Time] 26.7 s Normal 25.0-35.0 [facility] Comment on above: Result Comment: ALL RESULTS [...] THIS PURPOSE. Performed By: #### 5 7307, 05973 #### [facility] [address] [place] [address], [facility] BASIC METABOLIC PANELon Calcium [Mass/Vol] 8.9 mg/dL Normal 8.6-10.3 [facility] Comment on above: Performed By: #### 0 0071 #### [facility] [address] [place] [address], [facility] Chloride [Moles/Vol] 105 mmol/L Normal 98-107 [facility] Comment on above: Performed By: #### 0 0071 #### [facility] [address] [place] [address], [place] CO2 [Moles/Vol] 26 mmol/L Normal 21-31 [facility] Comment on above: Performed By: #### 0 0071 #### [facility] [address] [place] [address], [facility] Creatinine [Mass/Vol] 1.00 mg/dL Normal 0.70-1.30 [facility] Comment on above: Performed By: #### 0 0071 #### [facility] [address] [place] [address], [facility] GFR/1.73 sq M.predicted among non-blacks MDRD (S/P/Bld) [Vol rate/Area] mL/min/{1.73_m2} Normal >60 [facility] Comment on above: Result Comment: [facility]'s estimated glomerular filtration rate (eGFR) will no [...] individuals. Performed By: #### 0 0071 #### [facility] [address] [place] [address], [facility] Glucose [Mass/Vol] 95 mg/dL Normal 70-100 [facility] Comment on above: Performed By: #### 0 0071 #### [facility] [address] Potassium [Moles/Vol] 4.9 mmol/L Normal 3.5-5.1 [facility] Comment on above: Performed By: #### 0 0071 #### [facility] [address] Sodium [Moles/Vol] 138 mmol/L Normal 136-145 [facility] Comment on above: Performed By: #### 0 0071 #### [facility] [address] Urea nitrogen [Mass/Vol] 15 mg/dL Normal 7-25 [facility] Comment on above: Performed By: #### 0 1 #### [facility] [address] CBC W/DIFFon 03-04-2022 ABS IMM GRANS 0.0 10*3/uL Normal 0.0-0.2 [facility] Comment on above: Performed By: #### 5 102 #### [facility] [address] ABS NEUTROPHILS 6.7 10*3/uL Normal 1.6-7.6 [facility] Comment on above: Performed By: #### 5 102 #### [facility] [address] Basophils (Bld) [#/Vol] 0.0 10*3/uL Normal 0.0-0.2 [facility] Comment on above: Performed By: #### 5 3 #### [facility] [address] Basophils/100 WBC (Bld) 0.4 % Normal 0.0-1.0 [facility] Comment on above: Performed By: #### 5 102 #### [facility] [address] [place] [address], [facility] Eosinophils (Bld) [#/Vol] 0.2 10*3/uL Normal 0.0-0.5 [facility] Comment on above: Performed By: #### 5 0103 #### [facility] [address] [place] [address], [facility] Eosinophils/100 WBC (Bld) 2.0 % Normal 0.0-6.0 [facility] Comment on above: Performed By: #### 5 0103 #### [facility] [address] Erythrocyte distribution width (RBC) [Ratio] 13.8 % Normal 11.5-15.0 [facility] Comment on above: Performed By: #### 5 0103 #### [facility] [address] Hematocrit (Bld) [Volume fraction] 48.0 % Normal 39.0-50.0 [facility] Comment on above: Performed By: #### 5 0103 #### [facility] [address] [facility]. [address] Hemoglobin (Bld) [Mass/Vol] 15.9 g/dL Normal 13.0-17.0 [facility] Comment on above: Performed By: #### 5 0103 #### [facility] [address] [place] [address], [facility] IMMATURE GRANS 0.3 % Normal 0.0-1.0 [facility] Comment on above: Performed By: #### 5 0103 #### [facility] [address] [facility] [place] [address], [facility] Lymphocytes (Bld) [#/Vol] 3.3 10*3/uL Normal 1.2-4.0 [facility] Comment on above: Performed By: #### 3 #### [facility] [address] [place] [address], [facility] Lymphocytes/100 WBC (Bld) 29.7 % Normal 20.0-45.0 [facility] Comment on above: Performed By: #### 5 0103 #### [facility] [address] [place] [address], [facility] MCH (RBC) [Entitic mass] 29.8 pg Normal 27.0-33.0 [facility] Comment on above: Performed By: #### 5 0103 #### [facility] [address] [place] [address], [facility] MCHC (RBC) [Mass/Vol] 33.1 g/dL Normal 32.0-35.0 [facility] Comment on above: Performed By: #### 5 0103 #### [facility] [address] [place] [address], [facility] MCV (RBC) [Entitic vol] 90.1 fL Normal 82.0-98.0 [facility] Comment on above: Performed By: #### 5 0103 #### [facility] [address] [place] [address], [facility] Monocytes (Bld) [#/Vol] 0.8 10*3/uL Normal 0.1-1.0 [facility] Comment on above: Performed By: #### 5 0103 #### [facility] [address] [facility] [place] [id number], [facility] MONOS 7.4 % Normal 5.0-12.0 [facility] Comment on above: Performed By: #### 5 0103 #### [facility] [address] [place] [id number], [facility] Neutrophils/100 WBC (Bld) 60.2 % Normal 40.0-72.0 [facility] Comment on above: Performed By: #### 5 3 #### [facility] [address] [place] [id number], [facility] Nucleated RBC/100 WBC (Bld) [Ratio] 0 % Normal 0-0 [facility] Comment on above: Performed By: #### 5 0103 #### [facility] [address] [facility] [place] [address], [facility] PLAT CNT 197 10*3/uL Normal 150-400 [facility] Comment on above: Performed By: #### 5 0103 #### [facility] [address] [place] [address], [facility] RBC (Bld) [#/Vol] 5.33 10*6/uL Normal 4.20-5.70 [facility] Comment on above: Performed By: #### 5 0103 #### [facility] [address] [facility] [place] [address], [facility] WBC (Bld) [#/Vol] 11.07 10*3/uL High 4.00-10.60 [facility] Comment on above: Performed By: #### 5 0103 #### [facility] [address] PROTHROMBIN TIMEon 2 INR Coag (PPP) [Relative time] 0.97 {INR} Normal 0.91-1.16 [facility] Comment on above: Result Comment: ACCC P [...] CHEST 1995;108:231S-246S. Performed By: #### 5 7307, 77206 #### [facility] [address] [place] [address], [place] PT Coag (PPP) [Time] 12.9 s Normal 12.3-14.8 [facility] Comment on above: Result Comment: ALL RESULTS MUST BE INTERPRETED WITH RESPECT TO BLOOD DRAWING ARTIFACT OR DILUTION ERROR OF ANTICOAGULANT AT THE TIME OF SAMPLING. Performed By: #### 5 7307, 24123 #### [facility] [address] [place] [address], [place] TYPE AND CROSSMATCHon 2021 ABO INTERPRETATION A Normal [facility] Comment on above: Performed By: #### 6 2594 #### [facility] [address] [place] [address], [place] RH INTERPRETATION Positive Normal [facility] Comment on above: Performed By: #### 6 2594 #### [facility] [address] [place] [address], [place] TYPE AND SCREENon 03-04-2022 AB SCREEN Negative Normal [facility] Comment on above: Performed By: #### L [id number] #### [facility] ([facility]AK[facility]) [address] [place] [address] ABO group Nom (Bld) A Normal [facility] Comment on above: Performed By: #### L [id number] #### [facility] (BEAKER) [address] [place] [address] RH TYPE IN BLOOD Positive Normal [facility] Comment on above: Performed By: #### L [id number] #### [facility] (BEAKER) [address] [place] [address] URINALYSISon 03-04-2022 Appearance (U) CLEAR Normal CLEAR [facility] Comment on above: Performed By: #### 1 0008 #### [facility] [address] [place] [address], [facility] Bilirubin Ql (U) Negative Normal NEGATIVE [facility] Comment on above: Performed By: #### 1 0008 #### [facility] [address] [place] [address], [place] Color (U) YELLOW Normal YELLOW [facility] Comment on above: Performed By: #### 1 0008 #### [facility] [address] [place] [address], [facility] EPIS NONE SEEN Normal FEW,OCC,NON E SEEN [facility] Comment on above: Performed By: #### 1 0008 #### [facility] [address] [facility] [address], [facility] Glucose Ql (U) Negative Normal NEGATIVE [facility] Comment on above: Performed By: #### 1 0008 #### [facility] [address] [place] [address], [facility] Hemoglobin Ql (U) Negative Normal NEGATIVE [facility] Comment on above: Performed By: #### 1 0008 #### [facility] [address] [facility] [place] [address], [facility] KETONE Negative Normal NEGATIVE [facility] Comment on above: Performed By: #### 1 0008 #### [facility] [address] [facility] [place] [address], [facility] LEUK OTF Negative Normal NEGATIVE [facility] Comment on above: Performed By: #### 1 0008 #### [facility] [address] [place] [address], [place] MUCUS THREADS OCC Abnormal NONE SEEN [facility] Comment on above: Performed By: #### 1 0008 #### [facility] [address] [place] [address], [place] Nitrite Ql (U) Negative Normal NEGATIVE [facility] Comment on above: Performed By: #### 1 0008 #### [facility] [address] [facility] [place], [place] [address] [place] [address] pH (U) 5.5 [pH] Normal 5.0-8.0 [facility] Comment on above: Performed By: #### 1 0008 #### [facility] [address] [place] [address], [facility] Protein Ql (U) Negative Normal NEGATIVE [facility] Comment on above: Performed By: #### 1 0008 #### [facility] [address] RBC 0-2 Abnormal NONE SEEN [facility] Comment on above: Performed By: #### 1 0008 #### [facility] [address] SPEC GRAV 1.020 Normal 1.015-1.020 [facility] Comment on above: Performed By: #### 1 0008 #### [facility] [address] WBC UA 0-2 Abnormal NONE SEEN [facility] Comment on above: Performed By: #### 1 0008 #### [facility] [address] MRI LUMBAR SPINE WO CONTRAST on 01-28-2022 MRI LUMBAR SPINE WO CONTRAST [facility] Department of Radiology [address] [place] [id number] Patient Name: RIOS BARTLETT : 1965 [...] identified. Electronically signed: Jairo Tapia. Transcribed by: [email or web address], User Resident: Electronically Signed by: JAIRO ANÍBAL @ 01/28/2022 03:00 PM Normal [facility] Comment on above: Order Comment: Evalu ate [...] developed and its performance characteristic determined by [employer] and validated at [facility]. This test has not been FDA [...] by HANY PERFORMED BY: [facility] [place] [id number] PATHOLOGIST PHOTOGRAPH FINISHER LEONA ALVAREZ M.D. Normal [facility] Comment on above: Performed By: #### S ANDREW COOKID-19 SOHAIL #### [address] [address] [facility] Sohail Ag Negativeon 11-04-19 Sohail Ag Negative Negative Normal Negative [facility] Comment on above: Result Comment: This is a duplicate Sohail SARS Antigen (HANY) result to be used for statistical tracking purpose only. PERFORMED BY: [place] [address] PATHOLOGIST PHOTOGRAPH FINISHER LEONA ALVAREZ M.D. Performed By: #### S JOYCE COVID-19 SOHAIL #### [place] [id number] [facility] LUMBAR SPINE 2 OR 3 VWSon LUMBAR SPINE 2 OR 3 S [facility] Department of Radiology [address] [place] [phone] Patient Name: RIOS BARTLETT : 1965 [...] abnormality. Electronically signed: Laurent Lopez. Transcribed by: [email or web address], User Resident: Electronically Signed by: LAURENT LOPEZ @ 03/22/2021 02:01 PM Normal [facility] XR LUMBAR SPINE (2-3 VIEWS)o n 02-08-2021 [...] Jermaine Krishnamurthy MD 02/08/21 Final result Normal [facility] XR KNEE LEFT STANDARDon - XR KNEE [...] Jr.igned by:Miles Mishra Jr., MD02/11/17Final result Normal [facility] Vital Signs Date Time Vital Sign Value Performing Clinician Joni radha 12-16-2022 13:33-0400 Blood Pressure Location [facility] 12-16-2022 13:33-0400 Diastolic blood pressure 66 mm[Hg] Todd NILL [facility] 12-16-2022 13:33-0400 Heart rate 70 /min Todd NILL [facility] 12-16-2022 13:33-0400 Respiratory rate 18 /min Todd NILL [facility] 12-16-2022 13:33-0400 Systolic blood pressure 118 mm[Hg] Todd NILL [facility] 02-08-2021 10:49-0400 Body mass index (BMI) [Ratio] 42.33 kg/m2 Mary Kline MD Work Phone: [employer] Work Phone: 02-08-2021 10:49-0400 Body temperature 98.4 [degF] Mary Kline MD Work Phone: [employer] Work Phone: 02-08-2021 10:49-0400 Body weight 133.81 kg Mary Kline MD Work Phone: [facility] Work Phone: 02-08-2021 10:49-0400 Diastolic blood pressure 90 mm[Hg] Mary Kline MD Work Phone: [employer] Work Phone: 02-08-2021 10:49-0400 Heart rate 92 /min Mary Kline MD Work Phone: [employer] Work Phone: 02-08-2021 10:49-0400 Respiratory rate 18 /min Mary Kline MD Work Phone: [facility] Work Phone: 02-08-2021 10:49-0400 SaO2% (BldA) [Mass fraction] 94 % Mary Kline MD Work Phone: [employer] Work Phone: 02-08-2021 10:49-0400 Systolic blood pressure 119 mm[Hg] Mary Kline MD Work Phone: [facility] Work Phone: Encounters Encounter Date Encounter Type [...] End: 12-31-2022 ambulatory Todd R NILL Facility: [facility] Start: 12-30-2022 End: 12-30-2022 Patient encounter procedure Todd R NILL General Surgery [facility] [place] Start: 12-16-2022 End: 12-17-2022 ambulatory Todd R NILL Facility: [facility] Start: 12-16-2022 End: 12-16-2022 Patient encounter procedure Todd R NILL General Surgery [facility] [place] Start: 11-04-2022 End: 11-05-[address] MARY KLINE . Facility: Start: 08-10-2022 End: 08-11-[address] MARY KLINE . Facility:[facility] Start: 08-03-2022 End: 08-04-[address] MARY KLINE . Facility:[facility] Start: 07-30-2022 End: 07-31-[address] MARY KLINE . Facility: Start: 03-27-2022 End: 03-27-2022 ambulatory [facility] Start: 03-14-2022 Evaluation and manag ement of inpatient [facility] Start: 03-13-2022 End: 03-14-2022 Evaluation and management of inpatient [facility] Start: 03-13-2022 End: 03-14-2022 Evaluation and management of inpatient [facility] Start: 03-10-2022 End: 03-10-2022 ambulatory [facility] Start: 01-28-2022 End: 01-29-2022 ambulatory MARY KLINE Facility:[facility] Start: 02-08-2021 Emergency department patient visit MARY Blue [facility] Start: 02-08-2021 End: 02-08-2021 Emergency department patient visit Mary Kline MD Work Phone: [facility] ED Comment on above: Acute exacerbation o f chronic low back pain (Primary Dx) Start: 02-11-2017 End: 02-12-2017 Ambulatory OLIVIA ZAMAN [facility] Hospit al Procedures Date Procedure Procedure Detail Performing Clinician Start: 11-04-[address] MARY KLINE . Comment on above: Performed By: #### TSH, T4, FT3, CMP, LI PID #### [facility] [address] [place] [address] Dr. Ayush Rice Start: 03-04-2022 Antibody screen MARY KLINE Comment on above: Performed By: #### [id number] #### [facility] [address] 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 - OILER BANDER Work Phone: Start: 06-28-2019 Uvulopalatopharyngoplasty Todd BUDDY [...] specific antigen measurement Prostate Cancer Screening Discussion [facility] Start: 03-14-2025 Diabetes Screening Diabetes Screenin g [facility] Start: 10-20-2024 End: 10-20-2024 Patient encounter procedure 10/20/2024 9:10 PM EDT Office Visit Neurology [address] [place] [address] [facility] Comment on above: [facility] Start: 02-27-2024 Covid-19 Vaccine ( season) Covid-19 Vaccine ( season) [facility] Start: 02-27-2024 Influenza vaccination Influenza Vacc ine (#1) [facility] Start: 02-26-2021 Influenza vaccination Flu vaccine (# 1) [facility] Phone: Start: 2016 Pneumococcal Vaccine : 50+ (1 of 1 - PCV) Pneumococcal Vaccine: 50+ (1 of 1 - PCV) [facility] Start: 2016 Shingles Vaccine (1 of 2) Shingles Vaccine (1 of 2) [facility] Work Phone: Start: 2016 Shingrix Vaccine (1 of 2) Shingrix Vaccine (1 of 2) [facility] Start: 09-07-2011 Screening for malign ant neoplasm of colon [facility] Start: 2006 Lipid panel Lipid screen [facility] Work Phone: Start: 2001 Lipid panel Lipid Screening [facility] Start: 1985 DTaP/Tdap/Td vaccine (1 - Tdap) DTaP/Tdap/Td vaccine (1 - Tdap) [facility] Phone: Start: 1985 Hepatitis B Vaccine (1 of 3 - 19+ 3-dose series) Hepatitis B Vaccine (1 of 3 - 19+ 3-dose series) [facility] Start: 1985 Urine microalbumin profile DTaP,Tdap,Td Vaccine (1 - Tdap) [facility] Start: 1984 Anxiety Screening Anxiety Screening [facility] Start: 1984 Depression Screening Depression Scre ening [facility] Start: 1984 Hepatitis C screening [facility] Start: 1984 HIV screening HIV Screening [facility] Start: 1981 HIV screening HIV screen [facility] Work Phone: Start: 1966 Hepatitis C screening Hepatitis C [facility] Work Phone: End: 08-04-2025 Polysomnogram POLYSOMNOGRAM (PSG) Procedures Routine Snoring Witnessed episode of apnea Frequent nocturnal awakening Nocturia RLS (restless legs syndrome) Suspected sleep apnea 1 Occurrences starting 08/04/2024 until 08/04/2025 [facility] Work Phone: Comment on above: 1 Occurrences starti ng 08/04/2024 until 08/04/2025 XR LUMBAR SPINE (2-3 VIEWS) XR LUMBAR SPINE (2-3 VIEWS) Imaging STAT 02/08/2021 12:10 PM EDT [facility] Work Phone: Immunizations Immunization Date Immunization Notes Care Provider Jenniffer carver 04-14-2016 influenza virus vaccine, unspecified formulation London Carlson MD Work Phone: [facility] NEGATED: Highlighted row has not occurred!08-13-2021 influenza virus vaccine, unspecified formulation Todd BUDDY [facility] [place] Payers Date Payer Category Payer [facility] Health Insurance [facility] HMO [id number] 2020 Medicare [id number] 2019 Unknown [id number] 2016 Unknown [id number] 1965 Unknown [id number] 173 1966 Unknown [id number]. 647 1966 Unknown [id number]. 593 1966 Unknown [id number] 593 1966 Unknown [id number]. 593 1966 Unknown [id number] [id number]. 593 1966 Unknown [id number]. 727 1966 Unknown [id number] 727 Social History Date Type Detail Facility Start: 02-08-2021 End: 12-16-2022 Tobacco smoking status NHIS Never smoker [facility] [place] Start: 02-08-2021 Tobacco use and exposure Never used [facility] Start: 1965 Sex Assigned At Not on file [facility] Work Phone: Exposure to SARS-CoV-2 (event) Not sure [facility] Tobacco smoking status Never [facility] [place] Start: 06-04-2020 End: 08-02-2024 Sex Assigned At Male [employer] [facility] Tobacco smoking status ORIS Tobacco smoking consumption unknown [facility] Start: 06-04-2020 End: 08-02-2024 History of Social function [facility] Functional Status Date Assessment Result Facility 12-16-2022 Functional Status N/A General [facility] Clinical Notes 03-13-2022 to 08-04-2024 Patient InstructionsLondon [...] detail and any treatments options. - Call [phone] to schedule your sleep study and follow up appointment if it is not scheduled after your visit today with one of our schedulers. Sleep Nurse Practitioners: Nessa Bermudez [facility] [address] [place] [address] [facility] [address] [place] [address] [facility] [address] [place] [address] Wednesday, Wednesday, Wednesday Appt: [phone] Marnie Bonilla, PhD, [facility] [address] [place] [address] [facility] [address] [place] [address] Mondays, Tuesdays & Wednesday Appt: [phone] Polina Anglin, [facility] [address] [place] [address] [facility] [address] [place] [address] [facility] [address] [place] [address] Wednesday, Wednesday, Wednesday Appt: [phone] Vania Bardales, [facility] [address] [place] [address] [facility] [address] [place] [address] [facility] [address] [place] [address] Wednesday, , Wednesday Appt: [phone] Maria Guadalupe Hemphill, [facility] [address] [facility] [place] [address] [facility] [address] [place] [address] Wednesday, Wednesday, Wednesday, Wednesday Appt: [phone] Parul Duhram [facility] [address] [place] [address] [facility] [address] [facility] [place] [address] Wednesday, Wednesday, Wednesday, Wednesday Appt: [phone] Any appointments can be scheduled through the central scheduling system for the [facility] at [phone]. [facility] now offers direct scheduling for patients to schedule appointments. Virtual visits are also available. If not covered by your insurance, there is a 35% discount. Please contact your insurance to determine coverage. Call the office at [phone], option #5 for questions. May use Message My Doc through My Chart for questions. May use My Chart Refills for refill requests. [facility] website: [email or web address] documented in this encounter [facility] 08-04-2024 Note HNO ID: [id number] Author: LONDON CARLSON MD Service: ? Author Type: Physician Type: Progress Notes Filed: 08/08/2024 09:00 Note Text: [facility] New Patient Evaluation PATIENT NAME: Rios Bartlett DATE OF SERVICE: August 04, 2024 I have communicated my name and active licensure. The patient's identity and physical location were verified at the time of this visit. Either the patient or their legal business representative has been informed of the risks [...] at an outside institution near his home ([facility]). 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 high chance of dozing (3) Watching TV? high (more content not included)... [facility] 08-04-2024 History of Present illness Narrative Images from the original note were not included. [facility] New Patient Evaluation PATIENT NAME: Rios Bartlett DATE OF SERVICE: August 04, 2024 I have communicated my name and active licensure. The patient's identity and physical location were verified at the time of this visit. Either the patient or their legal business representative has been informed of the risks [...] at an outside institution near his home ([facility]). 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 high chance [...] resident/fellow. London Carlson MD Sleep Medicine Appointments: [phone] Office: [phone] August 08, 2024 8:59 AM documented in this encounter [facility] 12-16-2022 Note Chief Complaint consultation for skin [...] vaccine, inactivated - Not Given Patient Refuses [facility] Comment on above: Result Comment: Elec [...] as tolerated Follow up in 4 weeks [facility] 03-14-2022 Note Orthopaedic Discharg e Summary Patient ID: Rios Bartlett [id number] y.o. 1965 Admit date: 03/13/2022 Discharge [...] at bedtime for constipation. ergocalciferol 1.25 MG (95657 UT) capsule Commonly known as: Vitamin D-2 [...] These medications were sent to [id number] - [place], [place] - [address] [facility] [address] [facility] [address] acetaminophen 500 mg tablet acetaminophen 500 mg tablet cephalexin 500 mg capsule cholecalciferol 50 MCG (1999 UT) tablet docusate sodium 100 mg capsule docusate sodium 100 mg tablet ergocalciferol 1.25 MG (10298 UT) capsule methocarbamol 750 mg tablet ondansetron [...] Ambrosio Zavaleta MD in 10-14 days at [facility] Orthopaedic Clinic [phone] Hospital Course: Rios Bartlett was admitted on 03/13/2022 and underwent the aforementioned procedure. Post-operatively, he had adequate pain control and physical therapy to be able to be discharged from the hospital. DVT prophylaxis consisted of Lovenox only while admitted and none on discharge . Signed: Ambrosio Zavaleta MD 3:48 PM 04/02/2022 [facility] 03-14-2022 Note This report has been cancelled. [facility] 03-14-2022 Note Pt to discharge home with a rolling walker script. [facility] 03-14-2022 Note Physical Therapy Physical Therapy Treatment [...] stair negotiation at home 03/14/22 03/28/22 -- [facility] 03-14-2022 Note Occupational Therapy Occupational Therapy Evaluation [...] Level of Function Prior Function Level of Angelina: Independent with ADLs and functional transfers Vocational: [...] Eating meals?: None (Independent) Total Score OT [facility]: 21 ---- (more content not included)... [facility] 03-14-2022 Note Orthopedic Progress Note Status post Procedure(s) with comments: L4-L5 DECOMPRESSION WITH INTERBODY FUSION (Left) - C-ARM, SYNTHES, KAMALJIT TABLE, SSEP#[id number], REPS NOTIFIED RP. SUBJECTIVE: Patient seen and [...] MD Orthopaedic Surgery Resident, PGY-IV Personal pager: [phone] 03/14/2022 [facility] 03-13-2022 Note Patient: Rios holloway Procedure Summary Date: 03/13/22 Room / Location: [facility] OPERATING ROOM 12 / [facility] Operating Room Anesthesia Start: 734 Anesthesia Stop: [...] Hydration status: acceptable No notable events documented. [facility] 03-13-2022 Note Airway Date/Time: 03/13/2022 7:43 AM Urgency: elective Airway not difficult (done by medical student lawrence aguirre MS3) General Information and Staff Patient location during procedure: OR Anesthesiologist: Sara Felder MD Resident/HUMAN RESOURCE ADVISER/CAA: KRYSTAL Thompson Performed: other anesthesia staff Indications [...] Big neck.2 hand BMV with oral airway [facility] 03-13-2022 Note Patient: Rios holloway Procedure Information Date/Time: 03/13/22 0730 Procedure: L4-L5 DECOMPRESSION WITH INTERBODY FUSION (Spine Lumbar) - C-ARM, SYNTHES, KAMALJIT TABLE, SSEP#[id number], REPS NOTIFIED RP. Location: [facility] OPERATING ROOM 12 / [facility] Operating Room Surgeons: Cheikh Walker MD Relevant [...] consented to blood products. Additional Equipment Requests [facility] Evaluation + Plan note Future Appointments Appointment Date:12/30/2022 02:40:00 PM Scheduled Provider:Todd GOODWIN MD Location:[facility] Appointment Type: Procedure 30 General Surgery [place] Evaluation note Diagnosis Acute exacerbation of chronic low back pain- Primary documented in this encounter Tag'By Phone: evaluation note* Diagnosis Snoring- Primary Other dyspnea and respiratory abnormality Witnessed episode of apnea Frequent nocturnal awakening Other sleep disturbances Nocturia RLS (restless legs syndrome) Restless legs syndrome (RLS) Suspected sleep apnea documented in this encounter [facility] course Narrative No data available for this section [facility] Discharge instructions* Attachments The following attachments cannot be sent through Care Everywhere. * Low Back Pain: Exercises ([facility]) * Back Pain ([facility]) [facility]: Hospital Discharge instructions No data available for this section [facility] Progress note No data available for this section [facility] Summary Purpose Family History No Family History Records FoundNo Family History Records FoundNo Family History Records FoundNo Family History Records FoundNo Family History Records FoundNo Family History Records FoundNo Family History Records FoundNo Family History Records Found Advance Directives No Advanced Directives Records FoundDocuments on File Type Date Recorded Patient Veneer Marker Expl anation ACP-Advance Directive ACP-Power of Clinical Project Assistant Additional Source Comments (unrecognized sect ion and [...] DATE CREATED AUTHOR AUTHOR'S ORGANIZ ATION 12/05/2021 [facility] DATE CREATED AUTHOR AUTHOR'S ORGANIZ ATION 03/05/2022 [facility] DATE CREATED AUTHOR AUTHOR'S ORGANIZ ATION 05/08/2022 [facility] DATE CREATED AUTHOR AUTHOR'S ORGANIZ ATION 11/08/2022 [facility] DATE CREATED AUTHOR AUTHOR'S ORGANIZ ATION 06/26/2023 [facility] DATE CREATED AUTHOR AUTHOR'S ORGANIZ ATION 08/10/2024 [facility] Reason for Visit (unrecogniz ed section and content) Reason Comments Back Pain pt states he has chr onic low back pain, states the pain has gotten worse in the past 2 days with some increased activity. Pt states he has an appointment with his ortho Dr, in [place] on 02/21 Reason Comments Sleep Apnea Trouble [...] team informatio n (unrecognized section and content) Carbon Furnace Operator Relationship Specialty Start Date End Date Mary Kline MD PCP - General Family Medicine 01/11/18 Source Comments (unrecognize d section and content) In the event this informatio n is protected by the Federal Confidentiality of Alcohol and Drug Abuse Patient Records regulations: The Federal rules restrict any use of the information to criminally investigate or prosecute any alcohol or drug abuse patient.[facility] FOR RECORDS PERTAINING TO PATIENTS WHO ARE [...] BE BASED ON THE PRIMARY CLINICAL RECORDS. [facility]. provides no warranty or guarantee of the accuracy or completeness of information in this document.
== END 2024-09-27 09:25 | disposition home or self-care (01) ==
LOC: CT 09:25
PROVIDERS: PCP Family Medicine; Visit Provider Family Medicine
DX: R35.0 Frequency of micturition (principal); M54.59 Other low back pain; R10.9 Unspecified abdominal pain
CPT/HCPCS: 74178; Q9967

== ENCOUNTER 2024-12-04 11:57 | Outpatient (OUT) | payer OTHER, SELFPAY ==
--- OUTSIDE RECORDS SUMMARY | 2024-11-01 12:02 | XMS_ITS ---
Author Organization [facility] Address [address] [place] [address] Care Team Providers Care Set Up Machinist Name Role Phone Vargas Kline Primary Care Provider [phone] Reason For Referral Diagnosis 1 Urinary frequency (R 35.0) Diagnosis 2 Prostate pain (N42.8 1) Referral Organization [facility] Referring Provider First Name Vargas Referring Provider Last Name Raisa Referring Provider Speciality Family Med icine Referred Provider Danny Armendariz Referred Provider Specialty Urology Referral Priority Routine REASON FOR VISIT Med questions Medications Medication SIG (Take, Route, Fr equency, Duration) Notes Start Date End Date Status Dutasteride 0.5 MG 1 capsule Orally Onc e a day for 30 day(s) 10/09/2024 Active Ketoconazole 2 % 1 application [employer] Laborer ally bid for 14 days 07/19/2024 Active Problems Problem Type SNOMED Code ICD Code Onset Dates Problem Status W/U Status Risk Notes Problem Prostate pain (36061617) Prostate pain (N42.81) Active confirmed Encounters Encounter Location Date Provider Diagnosis [facility] [address] [place] [address] 11/01/2024 Vargas Kline Sleep apnea G47.30 ; Urinary frequency R35.0 and Prostate pain N42.81 Assessments Encounter Date Diagnosis (ICD Code) Assessment Notes Treatment Notes Treatment Clinical Notes Section Notes 11/01/2024 Sleep apnea (ICD-10 - G47.30) 11/01/2024 Urinary frequency (ICD-10 - R35.0) 11/01/2024 Prostate pain (ICD-10 - N42.81) Plan Of Treatment Medication Medication Name Sig Start Date Stop Date Notes Dutasteride 0.5 MG 1 capsule Orally Onc e a day for 30 day(s) 10/09/2024 Ketoconazole 2 % 1 application [employer] Laborer ally bid for 14 days 07/19/2024 Referrals Referral Date Details 11/02/2024 11/02/2024, Danny Armendariz Progress Notes * Rios LOPEZ TDOB:[birth year] (59 yo M)Acc No.[id number]:11/01/2024 Patient: Rios MONCADA :1965 A ge:59 Y S ex:Male Address:[address] [address] [address], [place], [address] * Refills Refill Ketoconazole Cream, 2 %, Externally, 60, 1 application, bid, 14 days, Refills=11 Refill Dutasteride Capsule, 0.5 MG, Orally, 30, 1 capsule, Once a day, 30 day(s) Subjective: * Chief Complaints: * M ed questions * Medical History: * Surgical History: * Hospitalization/Major Diagno stic Procedure: * Medications: Objective: * Vitals: * Physical Examination: Assessment: * Assessment: 1. S leep apnea - G47.30 2 . U rinary frequency - R35.0 3 .?Prostate pain - N42.81 Plan: * Treatment: 2. U rinary frequency Referral To:Danny Armendariz Urology Reason: 3. P rostate pain Referral To:Danny Armendariz Urology Reason: 4. O thers Refill Dutasteride Capsule, 0.5 MG, 1 capsule, Orally, Once a day, 30 day(s), 30. * Procedure Codes: * true * Date: Generated for Rick dodge/Hodan/eTransmitting on: 0 12/04/2024 12:04 PM EDT Consultation Request Notes Referral Date Referring Provider Referred Provider Not es 11/02/2024 Vargas Kline Patrick
--- OUTSIDE RECORDS SUMMARY | 2024-11-02 04:30 | XMS_ITS ---
Author Organization [facility] Address [address] [place] [address] Care Team Providers Care Drywall Hanger Helper Name Role Phone Vargas Kline Primary Care Provider Encounters Encounter Location Date Provider Diagnosis [facility] [address] [place] [address] 11/02/2024 Vargas Kline Plan Of Treatment No Information Progress Notes * Rios LOPEZ TDOB:[birth year] (59 yo M)Acc No.[id number]:11/02/2024 UNLOCKED PROGRESS NOTE Progress Note Patient: Rios MONCADA Provider: Kim Kline MD (TTC) :1965 A ge:59 Y S ex:Male Date:11/02/2024 Address:[place] [address] Subjective: * Chief Complaints: * * Medical History: Objective: * Vitals: Assessment: Plan: * Treatment: * * Electronic signature of Vargas Kline MD, [phone] on 12/04/2024 at 12:05 PM EDT Sign off status: Pending Visit Status: C ANC (Cancelled) * Provider: Kim Kline MD (TTC) Date: 0 11/02/2024 Generated for Printi ng/Faxing/eTransmitting on: 0 12/04/2024 12:05 PM EDT
--- OUTSIDE RECORDS SUMMARY | 2024-12-04 06:30 | XMS_ITS ---
Author Organization [facility] in [place] Address [address] [place] [address] Care Team Providers Care Swimming Pool Servicer Name Role Phone Raisa Vargas Primary Care Provider [phone] Allergies Allergen (clinical drug ingredient) Drug/Non Drug Allergy documented on EMR Reaction Allergy Type Onset Date Status morphine Morphine Unknown Drug Allergy Active REASON FOR VISIT Presents to office alone for weight gain. Wants to discuss weight loss medication, Would also like a motorized scooter d/t back and knee pain. Medications Medication SIG (Take, Route, Fr equency, Duration) Notes Start Date End Date Status Motorized Scooter - daily use for increases ambulation for 365 days M51.26, R53.1 12/04/2024 Active Furosemide 40 MG 1 tablet Orally Once a day for 4 days 12/04/2024 Active Mounjaro 2.5 MG/0.5ML 2.5 mg Subcutaneous weekly 0 12/04/2024 Active Social History Tobacco Use: Social History Observation Description Date Details (start date - stop date) Never Smoker NA - NA Tobacco Use/Smoking Question Answer Notes Patient is a nonsmoker AUDIT-C (Standard) Question Answer Notes Did you have a drink containing alcohol in the p ast year? No Points 0 Interpretation Negative Problems Problem Type SNOMED Code ICD Code Onset Dates Problem Status W/U Status Risk Notes Problem Metabolic syndrome X (disorder) (006788603) Insulin resistance syndrome, Type A (E88.811) Active confirmed Vital Signs Weight 337.4 lbs 12/04/2024 Height 59 in 12/04/2024 Blood pressure systolic 120 mm Hg 12/05/19 25 Blood pressure diastolic 72 mm Hg 06/09/2 025 BMI 68.14 kg/m2 12/04/2024 Encounters Encounter Location Date Provider Diagnosis [facility] [address] [place] [address] 12/04/2024 Vargas Kline Insulin resistance syndrome, Type A E88.811 ; Weakness R53.1 ; Herniated lumbar disc without myelopathy M51.26 and Edema R60.9 Assessments Encounter Date Diagnosis (ICD Code) Assessment Notes Treatment Notes Treatment Clinical Notes Section Notes 12/04/2024 Insulin resistance syndrome, Type A (ICD-10 - E88.811) 12/04/2024 Weakness (ICD-10 - R53.1) 12/04/2024 Herniated lumbar disc without myelopathy (ICD-10 - M51.26) Need motorized scooter to iprove ADL's outside house - unable currently to walk in [employer] shopping, groceries etc 12/04/2024 Edema (ICD-10 - R60.9) neeed svenous doppler Plan Of Treatment Medication Medication Name Sig Start Date Stop Date Notes Motorized Scooter - daily use for increa ses ambulation for 365 days 12/04/2024 Furosemide 40 MG 1 tablet Orally Once a day for 4 days 12/04/2024 Mounjaro 2.5 MG/0.5ML 2.5 mg Subcutaneous weekly Treatment Notes Assessment Notes Herniated lumbar disc without myelopathy Need motorized scooter to iprove ADL's outside house - unable currently to walk in [employer] shopping, groceries etc Edema neeed svenous dopple r Pending Test Test Name Order Date US SHANIKA DOP LEG LT 12/04/2024 Medications Administered Medication Instructions Date of Administration Dosage Notes Ketorolac Tromethamine 12/04/2024 60 mg Orphenadrine Citrate 12/04/2024 60 mg Triamcinolone 40 mg/ml 12/04/2024 80 mg Progress Notes * Rios LOPEZ TDOB:[birth year] (59 yo M)Acc No.[id number]:12/04/2024 UNLOCKED PROGRESS NOTE Progress Note Patient: Rios MONCADA Provider: Kim Kline ([facility])MD :1965 A ge:59 Y S ex:Male Date:12/04/2024 Address: [address], [id number] Check In:10:14 AM ESTCheck O ut:11:40 AM EST Subjective: * Chief Complaints: * 1 . Presents to office alone for weight gain. Wants to discuss weight loss medication. 2. Would also like a motorized scooter d/t back and knee pain.. * HPI: G eneral: Weigt increasing -discussed - - did well with the ozempic - disucssed mounjaro - as ab eter effect - weight is up - coujld be diabtic - geting venous satsis dermatitis due to Weight hinulin resistn s diagnosed paset in april. * ROS: E ENT: hearing changes d enies. v isual changes d enies.?non-healing mouth sores d enies. s wollen glands or neck lumps d enies. h oarseness d enies. s ore throat d enies. d ifficulty swallowing d enies. n ose bleeds d enies. n zeeshan congestion d enies. e ar ache d enies. e ar discharge?denies. r inging in ears d enies. l ight sensitivity d enies. e ye pain d enies. b lurring d enies. e ye irritation d enies. d ouble vision d enies.?vision loss d enies. G eneral/Constitutional: Sweats: D enies. F atigue d enies. S leep problems d enies. A norexia d enies. M alaise d enies. W eight loss d enies.?Fatigue or Weakness d enies. F ever or Chills d enies. C ardiovascular: Shortness of Breath w/lying flat d enies. L ightheadedness/dizziness d enies. C hest tightness/ heavy pressure d enies. S welling of legs, ankles, or feet d enies. W aking up with shortness of breath d enies. C hest pain denies. P alpitations d enies. W eight gain d enies. R espiratory: Chronic or frequent cough d enies. C oughing up blood?denies. D ifficulty breathing d enies. P roductive cough d enies. S noring?denies. S hortness of breath that awakens from sleep (PND) d enies. C hest pain d enies. S putum production d enies. W heezing d enies. M usculoskeletal: Joint pain d enies. J oint Fluid d enies. B ack pain d enies. K nee pain d enies. N citlaly pain d enies. J oint Stiffness d enies. M uscle cramps d enies. W eakness of muscles d enies. A rthritis d enies. M uscle aches d enies. P ain in shoulder(s) d enies. S wollen joints d enies. * Medical History: C hronic cough, Over weight, Lipoma of skin, Neuropathy, idiopathic, Well adult, Elevated blood pressure (not hypertension), Anxiety, Claustrophobia, Urinary frequency, Dyspnea, Abdominal hernia, Gout, Choking sensation, Hypertrophy, nasal, turbinate, Deviated nasal septum, Obstructive sleep apnea, Snoring, Herniated lumbar disc without myelopathy, Ankylosis, unspecified joint, Sprain of sacroiliac joint, initial encounter, Osteoarthritis, unspecified osteoarthritis type, unspecified site, Hip pain, Obesity, Cyst of oral region, Spondylosis, cervical, with myelopathy, Trapezius muscle spasm, Radiculopathy of cervicothoracic region, Paresthesia of arm, Weakness, Muscle spasm of back, Kidney Stone. * Surgical History: L eft Knee Nerve Block- Dr. Good Jun/Jul, Lumbar Radiofrequency Ablation- Left, Dr. Fung 08/11/2018, Revision- Left Knee 10/06/2016, Total Knee Arthroscopy- Left 2013, Septoplasty 2019, Tonsillectomy 2019, Uvulopalatopharyngnoplasty 2019, Lipoma Excision 2021, Lumbar Spinal Fusion- [facility] 03/13/2022. * Hospitalization/Major Diagno stic Procedure: s ee above . * Family History: F ather: 39 yrs, hypertension, Heart Disease, diagnosed with Unspecified essential hypertension, Unspecified heart disease. M other: 66 yrs. B phi(s): alive 53 yrs.? * Social History: T obacco Use: T obacco Use/Smoking P atient is a n onsmoker D rug/Alcohol: A CHEVY-C (Standard) D id you have a drink containing alcohol in the past year? N o P oints 0 I nterpretation N egative * Medications: D iscontinued Cefdinir 300 MG Capsule 2 capsule Orally once a day , Discontinued DULoxetine HCl 30 MG Capsule Delayed Release Particles 1 capsule Orally Once a day , Discontinued Dutasteride 0.5 MG Capsule 1 capsule Orally Once a day , Discontinued Ketoconazole 2 % Cream 1 application Externally bid , Discontinued rOPINIRole HCl 1 MG Tablet 1 tablet Orally at bedtime , Discontinued Tamsulosin HCl 0.4 MG Capsule 1 capsule Orally Once a day , Medication List reviewed and reconciled with the patient * Allergies: M orphine: Allergy. Objective: * Vitals: W t:337.4lbs, Ht: 59 in, BP:120/72mm Hg, BMI:68.14Index, Ht-cm: 149.86 cm, Wt-k.04 kg. * Examination: P hysical Exam: GENERAL: w ell developed, well nourished, in no acute distress. HEAD: n ormocephalic/atraumatic. EYES: p upils equal, round and reactive to light, conjunctivae and sclerae normal. EARS: n o deformity or lesion of external ear, canals and TM appear normal bilaterally, TM's intact, not inflamed with normal light reflex, hearing grossly normal to conversational speech. NOSE: n o deformity, discharge, inflammation, or lesions.? MOUTH: m ucous membranes moist, normal oropharynx and posterior pharynx without lesions or exudates, tongue normal, dentition normal. NECK: n citlaly supple, no masses or palpable cervical nodes, trachea midline, thyroid without nodules, masses, tenderness, or enlargement. CHEST: n o chest wall deformity, no chest wall tenderness.? LUNGS: n ormal respiratory effort and clear to auscultation, no wheezes, rales, or rhonchi, good air exchange. CARDIO: r egular rate and rhythm, normal S1 and S2, nor murmur, rub, or gallop. PULSES: n ormal capillary refill. ABDOMEN: s oft, non-distended, non-tender, no masses. MUSCULOSKELETAL: n o deformity or scoliosis noted, normal range of motion, joints normal, no erythema, edema, effusion, or ecchymosis. EXTREMITY: n o clubbing, cyanosis, edema, or deformity with normal ROM in both upper and lower bilateral extremities. NEUROLOGIC: g rossly normal. SKIN: n o rashes, ulcerations, or suspicious lesions. LYMPH NODES: n o cervical adenopathy, nodes normal. MENTAL STATUS: a lert and oriented x3, normal mood and affect. Assessment: * Assessment: 1. I nsulin resistance syndrome, Type A - E88.811 (Primary) 2 . W eakness - R53.1 3 . H erniated lumbar disc without myelopathy - M51.26 4 . E aria - R60.9 Plan: * Treatment: 2. H erniated lumbar disc without myelopathy Notes: Need motorized scooter to iprove ADL's outside house - unable currently to walk in [facility] shopping, groceries etc 3. E aria Start Furosemide Tablet, 40 MG, 1 tablet, Orally, Once a day, 4 days, 4 Tablet, Refills 0. ? I maging: US SHANIKA DOP LEG LT Notes: neeed svenous doppler * Therapeutic Injections: Triamcinolone 40 mg/ml : 80 mg (Route: Intramuscular) given by Martha Avilez , MR on right deltoid (Herniated lumbar disc without myelopathy) Ketorolac Tromethamine : 60 mg (Route: Intramuscular) given by Martha Avilez , MR on left deltoid (Herniated lumbar disc without myelopathy) Orphenadrine Citrate : 60 mg (Route: Intramuscular) given by Martha Avilez , MR on left deltoid (Herniated lumbar disc without myelopathy) * Procedure Codes: J 1885 TORADOL, PER 15 MG, 48512 THERAP.INJ. OF MED. INTRAMUSCULAR OR SUBCUTANEOUS, J2360 NORFLEX,UP TO 60MG., J3301 TMC ACET,PER 10MG. * Preventive Medicine: Screenings/Counseling: B SC ACTION PLAN Above Normal BMI Follow-up D ietary management education, guidance, and counseling See treatment section of progress note for complete details of management plan. * * Electronic signature of Vargas Kline MD, [id number] on 12/04/2024 at 12:05 PM EDT Sign off status: Pending Visit Status: C HK (Check Out) * Provider: Kim Kline ([facility])MD Date: 0 12/04/2024 Generated for Printi ng/Faxing/eTransmitting on: 12/04/2024 12:05 PM EDT History and Physical Notes * HPI (History of Present Illness) Category Sub-Category Detail Notes Category Not es General Weigt increasing -discussed - - did well with the ozempic - disucssed mounjaro - as ab eter effect - weight is up - coujld be diabtic - geting venous satsis dermatitis due to Weight hinulin resistn s diagnosed paset in april Examination Category Sub-Category Detail Notes Category Not es Physical Exam GENERAL: well developed, well nourished, in no acute distress HEAD: normocephalic/atraum atic EYES: pupils equal, round and reactive to light, conjunctivae and sclerae normal EARS: no deformity or lesi on of external ear, canals and TM appear normal bilaterally, TM's intact, not inflamed with normal light reflex, hearing grossly normal to conversational speech NOSE: no deformity, discha rge, inflammation, or lesions MOUTH: mucous membranes silvia st, normal oropharynx and posterior pharynx without lesions or exudates, tongue normal, dentition normal NECK: neck supple, no mass es or palpable cervical nodes, trachea midline, thyroid without nodules, masses, tenderness, or enlargement CHEST: no chest wall deform ity, no chest wall tenderness LUNGS: normal respiratory e ffort and clear to auscultation, no wheezes, rales, or rhonchi, good air exchange CARDIO: regular rate and rhy thm, normal S1 and S2, nor murmur, rub, or gallop PULSES: normal capillary ref ill ABDOMEN: soft, non-distended, non-tender, no masses RECTAL: MUSCULOSKELETAL: no deformity or scol iosis noted, normal range of motion, joints normal, no erythema, edema, effusion, or ecchymosis EXTREMITY: no clubbing, cyanosi s, edema, or deformity with normal ROM in both upper and lower bilateral extremities NEUROLOGIC: grossly normal SKIN: no rashes, ulceratio ns, or suspicious lesions LYMPH NODES: no cervical adenopat hy, nodes normal MENTAL STATUS: alert and oriented x 3, normal mood and affect
--- OUTSIDE RECORDS SUMMARY | 2024-12-04 12:05 | XMS_ITS | Encounter Summary ---
Author Organization [employer] Address [id number] [address] [place] [address] Care Team Providers Care Chemical Research Worker Name Role Phone Gilbert Kline MD Primary Care Provider [phone] Encounter Details Date Type Department Care Team (Late st Contact Info) Description 05/27/2020 Orders Only [facility] [address] [place] [address] Luz Espinosa, PA-C [address] [facility] [address] [place] [address] Social History Tobacco Use Types Packs/Day Years Used Date Smoking Tobacco: Never Smokeless Tobacco: Never Alcohol Use Standard Drinks/Week Comments Never 0 (1 standard drink = 0.6 oz pur e alcohol) AUDIT-C Answer Date Recorded Q1: How often do you have a drink containing alc ohol? Never 05/10/2020 Average Number of Drinks Not on file 020 Frequency of Binge Drinking Not on file 04/28 PHQ-2 Answer Date Recorded PHQ-2 Score 0 04/25/2020 Childcare Answer Date Recorded Childcare Unknown 04/17/2020 Employment Answer Date Recorded Employment Unknown 04/17/2020 Sex and Gender Information Value Date Recorded Sex Assigned at Not on file Legal Sex Male 11:58 AM EDT Gender Identity Not on file Sexual Orientation Not on file COVID-19 Exposure Response Date Recorded In the last month, have you been in contact with someone who was confirmed or suspected to have Coronavirus / COVID-19? No / Unsure 05/10/2020 10:05 AM EST documented as of this encounter Plan of Treatment Not on file documented as of this encounter Visit Diagnoses Not on filedocumented in this encounter Additional Health Concerns Assessment Noted Time PHQ-9 Depression Total Score: 0 05/10/20 20 8:47 AM EST documented as of this encounter Care Teams Chemical Research Worker Relationship Specialty Start Date End Date Gilbert Kline MD PCP - General Family Medicine 04/25/20 documented as of this encounter
--- OUTSIDE RECORDS SUMMARY | 2024-12-04 12:05 | XMS_ITS | Encounter Summary ---
Author Organization [facility] tem Address [id number] [address] [place] [address] Care Team Providers Care City Attorney Name Role Phone Gilbert Kline MD Primary Care Provider [phone] Encounter Details Date Type Department Care Team (Late st Contact Info) Description 05/09/2020 Orders Only [facility] - Pre Admit [address] [place] [address] Padmini Heck, RN Social History Tobacco Use Types Packs/Day Years Used Date Smoking Tobacco: Never Smokeless Tobacco: Never AUDIT-C Answer Date Recorded Q1: How often [...] AM EST documented as of this encounter Functional Status documented as of this encounter Plan of Treatment Not on file documented as of this encounter Visit Diagnoses Not on filedocumented in this encounter Additional Health Concerns Assessment Noted Time PHQ-9 Depression Total Score: 0 05/08/20 20 8:57 AM EST documented as of this encounter Care Teams City Attorney Relationship Specialty Start Date End Date Gilbert Kline MD PCP - General Family Medicine 04/25/20 documented as of this encounter
--- OUTSIDE RECORDS SUMMARY | 2024-12-04 12:05 | XMS_ITS | Referral Summary ---
Author Organization [facility] Address [address] [place] [address] Care Team Providers Care Brick Cleaner Name Role Phone Gilbert Kline MD Primary Care Provider [phone] Allergies Active Allergy Reactions Criticality Noted Date Comments Morphine Itching 03/03/2022 Medications Medication Sig Dispensed Refills Start Date End Date Status Ozempic 0.25 mg or 0.5 mg (2 mg/3 mL) pen injector inject 0.25 milligrams subcutaneously every week for 30 DAYS 11/06/2022 Active omeprazole (PriLOSEC) [address] capsule Take 20 mg by mouth twice a day. 11/10/2021 Active methocarbamol (Robaxin) 750 mg tablet Take 750 mg by mouth in the morning, at noon, in the evening, and at bedtime. Active gabapentin (Neurontin) 300 mg capsule Take 300 mg by mouth in the morning, at noon, and at bedtime. Active Active Problems Problem Noted Date Diagnosed Date Intervertebral disc disorder s with radiculopathy, lumbar region 03/13/2022 GERD (gastroesophageal reflux disease) 2 Lumbosacral radiculopathy 03/21/2021 History of surgical procedure 07/01/2020 Hearing loss 04/25/2020 Obstructive sleep apnea syndrome 04/25/2020 Ankylosis of joint 01/27/2018 Other intervertebral disc displacement, lumbar r egion 01/27/2018 Low back pain 09/13/2017 Other chronic pain 09/13/2017 Pain in left lower leg 09/07/2017 Presence of left artificial knee joint 8 Social History Tobacco Use Types Packs/Day Years Used Date Smoking Tobacco: Never Passive Smoke Exposure: Past Smokeless Tobacco: Never Tobacco Cessation:Counseling Given: Not Answered Alcohol Use Standard Drinks/Week Comments Not Currently 0 (1 standard drink = 0.6 oz pur e alcohol) [place] Safety & Environment Answer Date Rec orded Fear of Current or Ex-Partner Not on file Emotionally Abused Not on file 08/19/2023 Physically Abused Not on file 08/19/2023 Sexually Abused Not on file 08/19/2023 Physically or Sexually Abused Not on file Sex and Gender Information Value Date Recorded Sex Assigned at Not on file Gender Identity Not on file Sexual Orientation Not on file Last Filed Vital Signs Vital Sign Reading Time Taken Comments Blood Pressure 115/62 03/14/2022 8:25 AM EDT Pulse 78 03/14/2022 8:25 AM EDT Temperature 36.6 C (97.8 F) 03/14/2022 8:25 AM EDT Respiratory Rate 18 03/14/2022 8:25 AM EDT Oxygen Saturation 94% 03/14/2022 9:15 AM EDT Inhaled Oxygen Concentration - - Weight 136 kg (300 lb) 11/11/2022 2:31 PM EDT Height 175.3 cm (5' 9 ) 11/11/2022 2:31 PM EDT Body Mass Index 44.3 11/11/2022 2:31 PM EDT Plan of Treatment Not on file Medical Devices Implanted Type Area Lemon Grower Device Identifier Shelf Expiration Date Model / Serial / Lot Tissue Vivigen, 10 - [id number] - [id number] Implanted:Qty: 1 on 03/13/2022 by Cheikh Galarza MD at [facility] Allograft Tissue Left: Spine Lumbar LIFENET [id number] 11/14/2022 BL-1500-0 [id number] / Tissue Vivigen, 10 - [id number] - [id number] Implanted:Qty: 1 on 03/13/2022 by Cheikh Galarza MD at [facility] Allograft Tissue Left: Spine Lumbar LIFENET BL-1500-003 11/28/2022 BL-1500-0 [id number] / Tiss Bone,Canc,Chip s,Pres,60cc - [id number] - [id number] Implanted:Qty: 1 on 03/13/2022 by Cheikh Galarza MD at [facility] Bone Left: Spine Lumbar LIFENET PCAN60 12/12/2024 PCAN60 / [id number] / Tiss Allograft,Tp11 mm,6x1x2.5 - [id number] - [id number] Implanted:Qty: 1 on 03/13/2022 by Cheikh Galarza MD at [facility] Bone Left: Spine Lumbar MTF 01/14/2025 [id number] / [id number] / Collar,Ti,Groo ves - [id number] Implanted:Qty: 4 on 03/13/2022 by Cheikh Galarza MD at [facility] Clamp Left: Spine Lumbar ESTEPHANIA/ESTEPHANIA ORTHO [id number] [id number] / / Ti-Nut,11m-Wid th,Across-Flat s - [id number] Implanted:Qty: 4 on 03/13/2022 by Cheikh Galarza MD at [facility] Nut Left: Spine Lumbar ESTEPHANIA/ESTEPHANIA ORTHO [id number] [id number] / / Agustin,6.0m,Ti-[address],50m - [id number] Implanted:Qty: 2 on 03/13/2022 by Cheikh Galarza MD at [facility] Pin Left: Spine Lumbar ESTEPHANIA/ESTEPHANIA ORTHO [id number] 498.102 / / Screw,Side-Ope n,7.0m,50mm - [id number] Implanted:Qty: 4 on 03/13/2022 by Cheikh Galarza MD at [facility] Screw Left: Spine Lumbar ESTEPHANIA/ESTEPHANIA ORTHO [id number] [id number] / / Advance Directives * Full Code (Latest Code Status on File) Date Activated Date Inactivated Comments 03/13/2022 10:59 AM 03/14/2022 6:36 PM Care Teams Brick Cleaner Relationship Specialty Start Date End Date Gilbert Kline MD [address] [place] [address] PCP - General 03/04/22
--- OUTSIDE RECORDS SUMMARY | 2024-12-04 12:05 | XMS_ITS | Clinical Summary ---
Author Organization [facility] Address [address] [place] [address] Care Team Providers Care Configuration Technician Name Role Phone Gilbert Kline MD Primary Care Provider [phone] Allergies Active Allergy Reactions Criticality Noted Date Comments Morphine Itching 01/28/2018 Medications No known medications Active Problems Problem Noted Date Diagnosed Date Ankylosis of joint 01/27/2018 Other intervertebral disc displacement, lumbar r egion 01/27/2018 Low back pain 09/13/2017 Other chronic pain 09/13/2017 Pain in left lower leg 09/13/2017 Cramp and spasm 09/07/2017 Pain in left leg 09/07/2017 Presence of left artificial knee joint 8 Encounters Date Type Department Care Team Description 10/12/2024 Patient Msg Neurology [address] [place] [address] Provider, [facility] Please confirm your sleep study to avoid cancellation, thank you! from Last 3 Months Social History Tobacco Use Types Packs/Day Years Used Date Smoking Tobacco: Never Assessed PHQ-2 Answer Date Recorded PHQ-2 score 6 08/02/2024 Area Deprivation Index Answer Date James rded National Score (1-100), lower number is lower ri sk Not on file 06/04/2020 State Score (1-10), lower number is lower risk N ot on file 06/04/2020 Data from: https://www.neighborhoodatlas.medicine.[facility].edu/. Last address used for calculation Not on file 06/04/2020 Sex and Gender Information Value Date Recorded Sex Assigned at Not on file Legal Sex Male 12:15 PM EDT Gender Identity Not on file Sexual Orientation Not on file Last Filed Vital Signs Vital Sign Reading Time Taken Comments Blood Pressure - - Pulse - - Temperature - - Respiratory Rate - - Oxygen Saturation - - Inhaled Oxygen Concentration - - Weight 122.5 kg (270 lb) 01/28/2018 8:36 AM EDT Height 175.3 cm (5' 9 ) 01/28/2018 8:36 AM EDT Body Mass Index 39.87 01/28/2018 8:36 AM EDT Plan of Treatment Health Maintenance Due Date Last Done Comments Anxiety Screening 1984 Depression Screening 1984 HIV Screening 1984 Hepatitis C Screening 1984 DTaP,Tdap,Td Vaccine (1 - Tdap) 1985 Hepatitis B Vaccine (1 of 3 - 19+ 3-dose series) [address] Colonography 09/07/2011 Cologuard (FIT-DNA) 09/07/2011 Colonoscopy 09/07/2011 Colorectal Cancer Screening 09/07/2011 Fecal Occult Blood 09/07/2011 Sigmoidoscopy 09/07/2011 Pneumococcal Vaccine: 50+ (1 of 1 - PCV) 2016 Shingrix Vaccine (1 of 2) 2016 Covid-19 Vaccine ( season) 2024 05/07/2021, 07/31/2020, 07/10/2020 Influenza Vaccine (Season Ended) 2025 04/14/20 16, 04/18/2015 Diabetes Screening 03/14/2025 03/14/2022, 1 , 06/14/2020 Prostate Cancer Screening Discussion 11/05/202710/26 Insurance [facility] H[facility] Care Teams Configuration Technician Relationship Specialty Start Date End Date Gilbert Kline MD PCP - General Family Medicine 01/11/18
--- OUTSIDE RECORDS SUMMARY | 2024-12-04 12:05 | XMS_ITS | Data Portability ---
Author Organization [place] [facility] Address [address] [place] [address] Assessment No assessment recorded. Plan of Treatment Reminders Order Date Submit Date Provider Last Modified By Organization Details Last Modified Time Details Appointments None recorded . Lab None recorded . Referral None recorded . Procedures None recorded . Surgeries None recorded . Imaging XR, lumbar spine 025 11/24/[address], [address], [place], [address], 15:11:10 XR, knee 025 11/24/[email or web address], [address], [place], [address], 15:11:18 Medication Orders None recorded . Patient TargetsNo targets recorded. Patient InstructionsNo instructions recorded. Reason for Referral None Reported. Results Created Date Observation Date Name Description Value Unit Range Abnormal Flag Note LastModifiedBy Organization Detail LastModifiedTime 11/23/1911/22/2024 XR, lumba r spine No observ ation record ed. BARCODE Not Available 2024 19:51:09 11/24/1912/03/2024 XR, lumba r spine No observ ation record ed. [email or web address] [facility] [address], [place], [address], 12/03/2024 12:29:23 11/24/19 25 12/03/2024 XR, knee No observ ation record ed. [email or web address] [facility] [address], [place], [address], 12/03/2024 12:29:37 Result Notes None recorded. Medical Equipment None Reported. Vitals None Recorded Social History None recorded. Functional Status None recorded. Mental Status None recorded. Family History Nothing Reported. Medical History No medical history recorded. Past Encounters Encounter ID Performer Location Encounter Start Date Encounter Closed Date Diagnosis/Indication Diagnosis SNOMED-CT Code Diagnosis ICD10 Code Diagnosis Note [id number] MD ESTHER Magana [address] [place] [address] 11/22/2024 10:45:00 11/23/2024 06:26:25 Low back pain 682501829 M54.50 M79.606 Pain of bi lateral knee regions [id number] 87675 M25.561 M25.562 Health Concerns Section Related Observation LastModified by Organization Detai ls LastModified Time None Recorded Concern Status LastModified by Organization Details LastModified Time None Recorded Advance Directives Directive None Recorded Payers Encounter Date Sequence Insurance Name Policy Number Policy Shah Covered Member ID Shah Member ID Guarantor Name 11/22/2024 [facility] [id number] [facility]
--- OUTSIDE RECORDS SUMMARY | 2024-12-04 12:05 | XMS_ITS | Clinical Summary ---
Author Organization [facility] Address [id number] [address] [place] [address] Care Team Providers Care Occasional Caregiver Name Role Phone Gilbert Kline MD Primary Care Provider [phone] Allergies Active Allergy Reactions Criticality Noted Date Comments Morphine Itching 01/28/2018 Medications omeprazole (PriLOSEC) 20 mg capsuleIndicatio ns:Gastroesophag eal reflux disease, unspecified whether esophagitis present Take 1 capsule (20 mg total) by mouth in the morning and 1 capsule (20 mg total) before bedtime. 60 capsule 11 2 Active fluticasone propionate (FLONASE) 50 mcg/actuation nasal spray Administer 1 spray into each nostril in the morning. 15.8 mL 12 2 Active Active Problems Problem Noted Date Diagnosed Date GERD (gastroesophageal reflux disease) 2 Cyst of mandible 12/24/2020 S/P UPPP (uvulopalatopharyngoplasty) 07/01/2020 S/P nasal septoplasty 07/01/2020 Obstructive sleep apnea 06/24/2020 Obstructive sleep apnea syndrome 04/25/2020 Hearing loss 04/25/2020 Family History Medical History Relation Name Comments Heart disease Father COPD Mother Cancer Mother mesothemlioma Stroke Mother Relation Name Status Comments Father Mother Social History Tobacco Use Types Packs/Day Years [...] on file 04/28 PHQ-2 Answer Date Recorded Total Score 0 06/24/2020 Childcare Answer Date Recorded Do problems getting child ca re make it difficult for you to work or study? No 06/24/2020 Employment Answer Date Recorded Do you need help finding a [employer] career center and/or a training program? No 06/24/2020 Purpose - Life Answer Date Recorded Purpose and direction in life Unknown Sex and Gender Information Value Date Recorded Sex Assigned at Not on file Legal Sex Male 11:58 AM EDT Gender Identity Not on file Sexual Orientation Not on file Last Filed Vital Signs Vital Sign Reading Time Taken Comments Blood Pressure 137/82 12/12/2020 2:07 PM EDT Pulse 107 12/12/2020 2:07 PM EDT Temperature 37 C (98.6 F) 12/12/2020 2:07 PM EDT Respiratory Rate 18 12/12/2020 2:07 PM EDT Oxygen Saturation 100% 12/12/2020 2:07 PM EDT Inhaled Oxygen Concentration - - Weight 140.2 kg (309 lb) 11/10/2021 9:29 AM EDT Height 177.8 cm (5' 10 ) 11/10/2021 9:29 AM EDT Body Mass Index 44.34 11/10/2021 9:29 AM EDT Plan of Treatment Health Maintenance Due Date Last Done Comments Depression Screening 1978 Tobacco Screening 1978 DTaP,Tdap and Td Vaccines (1 - Tdap) 1985 Zoster (Shingles) Vaccine (1 of 2) 2016 Adult BMI Screening 11/10/2022 11/10/2021 COVID-19 Vaccine (4 - 2023-2 5 season) 2024 05/07/2021, 07/31/2020, 07/10/2020 Influenza Vaccine 02/26/2025 04/14/2016, 04/18/2015 Goals Goal Patient Goal Type Associated Problems Recent Progress Patient-Stated? Author Safe dc General Yes Deepika Washburn LSW Note: Evaluation of progress towards goal: Safe dc from hospital to home with family support. Medical Devices Implanted Type Area Shield Operator Device Identifier Shelf Expiration Date Model / Serial / Lot Sys Tng Susp Adj Kntls Bn Anch - Sna - [id number] Implanted:Qty: 1 on 06/24/2020 by Demario Colindres MD PhD at [facility] Other Implant Neck [employer] 08/25/2021 [id number] / [id number] / [id number] Insurance MEDICARE DEVOTED HEALTH MEDICARE ADVANTAGE Advance Directives * Full Code (Latest Code Status on File) Date Activated Date Inactivated Comments 06/24/2020 3:06 PM 06/27/2020 5:51 PM Care Teams Occasional Caregiver Relationship Specialty Start Date End Date Gilbert Kline MD PCP - General Family Medicine 04/25/20
--- OUTSIDE RECORDS SUMMARY | 2024-12-04 12:05 | XMS_ITS | Clinical Summary ---
Author Organization [facility] Address [address] [place] [address] Care Team Providers Care Airway Traffic Controller Name Role Phone Unavailable Primary Care Provider Unavailabl e Social History Tobacco Use Types Packs/Day Years Used Date Smoking Tobacco: Never Assessed Sex and Gender Information Value Date Recorded Sex Assigned at Not on file Legal Sex Male 7:22 PM EDT Gender Identity Not on file Sexual Orientation Not on file Last Filed Vital Signs Vital Sign Reading Time Taken Comments Blood Pressure - - Pulse - - Temperature - - Respiratory Rate - - Oxygen Saturation - - Inhaled Oxygen Concentration - - Weight 127 kg (280 lb) 09/13/2018 12:00 PM EDT Height 171.5 cm (5' 7.5 ) 09/13/2018 12:00 PM ED T Body Mass Index 43.21 09/13/2018 12:00 PM EDT Plan of Treatment Not on file
--- OUTSIDE RECORDS SUMMARY | 2024-12-04 12:05 | XMS_ITS | Clinical Summary ---
Author Organization [facility] Address [address] [place] [address] Care Team Providers Care Construction Secretary Name Role Phone Gilbert Kline MD Primary Care Provider Allergies Active Allergy Reactions Criticality Noted Date [...] 11/11/2022 2:31 PM EDT Plan of Treatment Health Maintenance Due Date Last Done Comments CT Colonography 1966 Colonoscopy 1966 Colorectal Cancer Screening 1966 FIT-DNA 1966 FIT 1966 FOBT 1966 Medicare Annual Wellness (AWV) 1966 Sigmoidoscopy 1966 Depression Screening 1978 Hepatitis B Vaccines (1 of 3 - 19+ 3-dose series) 1985 Adult Tetanus 1988 Zoster Vaccines (1 of 2) 2016 COVID-19 Vaccine ( - 2023-2 5 season) 2024 Influenza Vaccine (Season Ended) 2025 04/14/2016, 04/18/2015 HIB Vaccines Aged Out No longer eligi ble based on patient's age to complete this topic HPV Vaccines Aged Out No longer eligi ble based on patient's age to complete this topic IPV Vaccines Aged Out No longer eligi ble based on patient's age to complete this topic Meningococcal B Vaccine Aged Out No l onger eligible based on patient's age to complete this topic Meningococcal Vaccine Aged Out No kathy cande eligible based on patient's age to complete this topic Pneumococcal Vaccine: Pediatrics (0 to 5 Years) and At-Risk Patients (6 to 64 Years) Aged Out No longer eligible b ased on patient's age to complete this topic Rotavirus Vaccines Aged Out No longer eligible based on patient's age to complete this topic Medical Devices Implanted Type Area Dye Operator Device Identifier Shelf Expiration Date Model / Serial / Lot Tissue Vivigen, [facility] - [id number] - [id number] Implanted:Qty: 1 on 03/13/2022 by Cheikh Galarza MD at [facility] Allograft Tissue Left: Spine Lumbar LIFENET [id number] 11/14/2022 BL-1500-0 / [id number] / Tissue Vivigen, 10 - [id number] - [id number] Implanted:Qty: 1 on 03/13/2022 by Cheikh Galarza MD at [facility] Allograft Tissue Left: Spine Lumbar LIFENET [id number] 11/28/2022 BL-1500-0 / [id number] / Tiss Bone,Canc,Chip s,Pres,60cc - [id number] - [id number] Implanted:Qty: 1 on 03/13/2022 by Cheikh Galarza MD at [facility] Bone Left: Spine Lumbar LIFENET [id number] 12/12/2024 PCAN60 / [id number] / Tiss Allograft,Tp11 mm,6x1x2.5 - [id number] - [id number] Implanted:Qty: 1 on 03/13/2022 by Cheikh Galarza MD at [facility] Bone Left: Spine Lumbar MTF 01/14/2025 [id number] / [id number] / Collar,Ti,Groo ves - [id number] Implanted:Qty: 4 on 03/13/2022 by Cheikh Galarza MD at [facility] Clamp Left: Spine Lumbar ESTEPHANIA/ESTEPHANIA ORTHO [id number] 498.010 / / Ti-Nut,11m-Wid th,Across-Flat s - [id number] Implanted:Qty: 4 on 03/13/2022 by Cheikh Galarza MD at [facility] Nut Left: Spine Lumbar ESTEPHANIA/ESTEPHANIA ORTHO [id number] 498.003 / / Agustin,6.0m,Ti-[address],50m - [id number] Implanted:Qty: 2 on 03/13/2022 by Cheikh Galarza MD at [facility] Pin Left: Spine Lumbar ESTEPHANIA/ESTEPHANIA ORTHO [id number] 498.102 / / Screw,Side-Ope n,7.0m,50mm - [id number] Implanted:Qty: 4 on 03/13/2022 by Cheikh Galarza MD at [facility] Screw Left: Spine Lumbar ESTEPHANIA/ESTEPHANIA ORTHO [id number] 498.750 / / Advance Directives * Full Code (Latest Code Status on File) Date Activated Date Inactivated Comments 03/13/2022 10:59 AM 03/14/2022 6:36 PM Care Teams Construction Secretary Relationship Specialty Start Date End Date Gilbert Kline MD [address] [place] [address] PCP - General 03/04/22
--- OUTSIDE RECORDS SUMMARY | 2024-12-04 12:05 | XMS_ITS | Continuity of Care Document ---
Author Organization [place] [facility] Address [address] [place] [address] Assessment No assessment recorded. Plan of Treatment Reminders Order Date Submit Date Provider Last Modified By Organization Details Last Modified Time Details Appointments None recorded . Lab None recorded . Referral None recorded . Procedures None recorded . Surgeries None recorded . Imaging XR, lumbar spine 025 [facility]/24[facility] [address], [address], [place], [address], 15:11:10 XR, knee 025 11/24/19 [facility] [address] [place] [address], [address], [place], [address], 15:11:18 Medication Orders None recorded . Patient TargetsNo targets recorded. Patient InstructionsNo instructions recorded. Reason for Referral None Reported. Results Created Date Observation Date Name Description Value Unit Range Abnormal Flag Note LastModifiedBy Organization Detail LastModifiedTime 11/23/1911/22/2024 XR, lumba r spine No observ ation record ed. BARCODE Not Available 2024 19:51:09 11/24/1912/03/2024 XR, lumba r spine No observ ation record ed. [email or web address] [facility] [address], [place], [address], 12/03/2024 12:29:23 11/24/19 25 12/03/2024 XR, knee No observ ation record ed. [facility] [address], [place], [address], 12/03/2024 12:29:37 Result Notes None recorded. Medical Equipment None Reported. Vitals None Recorded Social History None recorded. Functional Status None recorded. Mental Status None recorded. Family History Nothing Reported. Medical History No medical history recorded. Past Encounters Encounter ID Performer Location Encounter Start Date Encounter Closed Date Diagnosis/Indication Diagnosis SNOMED-CT Code Diagnosis ICD10 Code Diagnosis Note [id number] MD ESTHER Magana [address] [place] [address] 11/22/2024 10:45:00 11/23/2024 06:26:25 Low back pain 710315122 M54.50 M79.606 Pain of bi lateral knee regions [id number] 24350 M25.561 M25.562 Health Concerns Section Related Observation LastModified by Organization Detai ls LastModified Time None Recorded Concern Status LastModified by Organization Details LastModified Time None Recorded Payers Encounter Date Sequence Insurance Name Policy Number Policy Shah Covered Member ID Shah Member ID Guarantor Name 11/22/2024 [facility] [id number] [place] [facility]
--- OUTSIDE RECORDS SUMMARY | 2024-12-04 12:05 | XMS_ITS | Encounter Summary ---
Author Organization [facility] Address [address] [place] [address] Care Team Providers Care Data Center Consultant Name Role Phone Gilbert Kline MD Primary Care Provider [phone] Source Comments In the event this information is protected by the Federal Confidentiality of Alcohol and Drug AbusePatient Records regulations: The Federal rules restrict any use of the information to criminally investigate or prosecute any alcohol or drug abuse patient.[facility] Encounter Details Date Type Department Care Team (Late st Contact Info) Description 10/12/2024 Patient Msg Neurology [address] [place], [place] [id number] Provider, [facility] Please confirm your sleep study to avoid cancellation, thank you! Social History Tobacco Use Types Packs/Day Years Used Date Smoking Tobacco: Never Assessed PHQ-2 Answer Date Recorded PHQ-2 score 6 08/02/2024 Area Deprivation Index Answer Date James rded National Score (1-100), lower number is lower ri sk Not on file 06/04/2020 State Score (1-10), lower number is lower risk N ot on file 06/04/2020 Data from: https://www.neighborhoodatlas.medicine.[facility].edu/. Last address used for calculation Not on file 06/04/2020 Sex and Gender Information Value Date Recorded Sex Assigned at Not on file Legal Sex Male 12:15 PM EDT Gender Identity Not on file Sexual Orientation Not on file documented as of this encounter Plan of Treatment Not on file documented as of this encounter Visit Diagnoses Not on filedocumented in this encounter Care Teams Data Center Consultant Relationship Specialty Start Date End Date Gilbert Kline MD PCP - General Family Medicine 01/11/18 documented as of this encounter
--- OUTSIDE RECORDS SUMMARY | 2024-12-04 12:06 | XMS_ITS | Patient Health Record ---
Author Organization [facility] in [place] Address [address] [place] [address] Care Team Providers Care Tile Layer Name Role Phone Vargas Coronado Primary Care Provider MARY CORNOADO Unavailable [phone] Allergies Allergen (clinical drug ingredient) Drug/Non Drug Allergy documented on EMR Reaction Allergy Type Onset Date Status morphine Morphine Unknown Drug Allergy Active Results Component Value Reference Range Notes CBC AUTO DIFF Reviewed date:05/14/2024 01:27:55 PM Interpretation: Performing Lab: Notes/Report: [facility] , White Blood Count 12.8 4.0-11.0 10 3/uL Red Blood Count 5.55 4.70-6.10 10 6/uL Hemoglobin 17.1 14.0-18.0 g/dL Hematocrit 51.1 42.0-54.0 % Mean Corpuscular Volume 92.1 80.0-94.0 fL Mean Corpuscular Hemoglobin 30.8 25.9-34.0 pg Mean Corpuscular HGB Conc 33.5 29.9-35.2 g/dL Red Cell Distribution Width 13.3 11.0-15.0 % Platelet Count 214 150-450 10 3/uL Mean Platelet Volume 8.7 9.5-13.5 fL Neutrophils Percent Auto 61.6 43.0-75.0 % Lymphocytes Percent Auto 29.6 20.5-60.0 % Monocytes Percent Auto 6.2 1.7-12.0 % Eosinophils Percent Auto 1.6 0.9-7.0 % Basophils Percent Auto 0.5 0.2-2.0 % Immature Granulocytes Pct Auto 0.5 0.0-0.5 % Neutrophils Absolute Auto 7.9 1.4-6.5 10 3/uL Lymphocytes Absolute Auto 3.8 1.2-3.8 10 3/uL Monocytes Absolute Auto 0.8 0.3-0.8 10 3/uL Eosinophils Absolute Auto 0.2 0.0-0.7 10 3/uL Basophils Absolute Auto 0.1 0.0-0.1 10 3/uL Immature Granulocytes Abs Auto 0.06 0.00-0.03 10 3/uL Performing Lab: see note ML - [facility] FREE T3 Reviewed date:05/14/2024 01:27:55 PM Interpretation: Performing Lab: Notes/Report: [facility] , Free T3 2.44 2.18-3.98 pg/mL Performing Lab: see note ML - [facility] GLYCOHEMOGLOBIN A1C Reviewed date:05/14/2024 01:27:55 PM Interpretation: Performing Lab: Notes/Report: [facility] , Glycohemoglobin A1C 6.1 4.5-6.2 % ADA RECOMMENDED LIMIT 4.0 - 6.0 > 7.0 ADA THERAPEUTIC TARGET < 7.0 ACTION SUGGESTED Estimated Average Glucose 128 Performing Lab: see note ML - [facility] LIPID PROFILE Reviewed date:05/14/2024 01:27:55 PM Interpretation: Performing Lab: Notes/Report: [facility] , Triglycerides 156 <=150 mg/dL Cholesterol 209 <=200 mg/dL HDL Cholesterol 50 40-60 mg/dL > or =60 mg/dl - LOW CARDIOVASCULAR RISK <40 mg/dl - HIGH CARDIOVASCULAR RISK LDL Cholesterol Calculated 128.0 160-189 mg/dl HIGH 130-159 mg/dl BORDERLINE HIGH <100 mg/dl OPTIMAL 100-129 mg/dl NEAR OR ABOVE OPTIMAL >190 mg/dl VERY HIGH VLDL CHOLESTEROL 31.2 Chol HDL Ratio 4.2 >11.0 HIGH RISK 4.4 - 7.1 AVERAGE RISK 7.1 - 11.0 MODERATE RISK 3.3 - 4.4 LOW RISK Performing Lab: see note ML - [facility] PROF 14(COMP METB) Reviewed date:05/14/2024 01:27:55 PM Interpretation: Performing Lab: Notes/Report: [facility] , Sodium 142 136-145 mmol/L Potassium 4.4 3.5-5.1 mmol/L Chloride 104 98-107 mmol/L Carbon Dioxide 27.7 21.0-32.0 mmol/L Anion Gap 14.7 Glucose 106 74-106 mg/dL Blood Urea Nitrogen 15.0 7.0-18.0 mg/dL Creatinine 1.12 0.70-1.30 mg/dL Estimated GFR ( Kriss >60 >=60 mL/min/1.73m 2 Estimated GFR (Non- Shwetha >60 >=60 mL/min/1.73m 2 BUN Creatinine Ratio 13.4 Calcium 9.4 8.5-10.1 mg/dL Bilirubin Total 0.8 0.2-1.0 mg/dL Aspartate Amino Transferase 18 15-37 U/L Alanine Aminotransferase 27 16-63 U/L Alkaline Phosphatase 76 46-116 U/L Total Protein 7.3 6.4-8.2 g/dL Albumin Level 3.5 3.4-5.0 g/dL Globulin 3.8 Albumin Globulin Ratio 0.9 Performing Lab: see note ML - [facility] PSA SCREENING Reviewed date:05/14/2024 01:27:55 PM Interpretation: Performing Lab: Notes/Report: [facility] , Prostate Specific Antigen Scrn 0.67 <=4.00 ng/mL Performing Lab: see note ML - [facility] LB T4 Reviewed date:05/14/2024 01:27:55 PM Interpretation: Performing Lab: Notes/Report: [facility] , T4 Thyroxine 6.90 4.50-12.10 ug/dL Performing Lab: see note ML - [facility] LB TSH Reviewed date:05/14/2024 01:27:55 PM Interpretation: Performing Lab: Notes/Report: [facility] , Thyroid Stimulating Hormone 1.936 0.358-3.740 uIU/mL Performing Lab: see note ML - [facility] LB URIC ACID SERUM Reviewed date:05/14/2024 01:27:55 PM Interpretation: Performing Lab: Notes/Report: [facility] , Uric Acid 8.2 3.5-7.2 mg/dL Performing Lab: see note ML - [facility] CT sinus wo con Reviewed date:08/07/2024 07:12:19 PM Interpretation: Performing Lab: Notes/Report: Source Facility: [address] [address] [address] Scan Report Signed Patient: Shakila Lopez MR#: [id number] : 1965 Acct:[id number] Age/Sex: 58 / M ADM Date: 08/04/24 Loc: CT Attending Dr: Mary Coronado M.D. Ordering Physician: Mary Coronado M.D. Date of Service: 08/04/24 Procedure(s): CT sinus wo con Accession Number(s): [id number] cc: Mary Coronado M.D. [place] [address] Patient Name: SHAKILA LOPEZ MRN: [id number] date: 1965 Sex: M Assigned Patient Location: CT Current Patient Location: Accession/Order Number: [id number] Exam Date: 08/04/2024 10:05 Report Date: 08/07/2024 15:02 At the request of: MARY CORONADO Procedure: CT sinus wo con EXAMINATION: CT sinus wo con HISTORY: Chronic Sinusitis, Sleep Apnea COMPARISON: No relevant comparison available. TECHNIQUE: Axial and Coronal CT images were created without IV contrast. Dose reduction techniques were achieved by using automated exposure control and/or adjustment of mA and/or kV according to patient size and/or use of iterative reconstruction technique. FINDINGS: MAXILLARY SINUSES: No significant mucosal thickening or fluid. Infundibula are patent. No significant anomalous inferior orbital ethmoid (Pamela) air cells. ETHMOID SINUSES: No significant mucosal thickening or fluid. Fovea ethmoidali and lamina papyracea are symmetric and intact. SPHENOID SINUSES: No significant mucosal thickening or fluid. Sphenoethmoidal recesses are patent. No bony dehiscence. FRONTAL SINUSES: No significant mucosal thickening or fluid. Frontal recesses are patent. NASAL FOSSA: 4 mm rightward deviation of the medial nasal septum. Small vandana bullosa left middle nasal turbinate or paradoxical turbinates are identified. OTHER: Negative. Limited views of the skull base and orbits are unremarkable. CT/CT sinus wo con IMPRESSION: No significant sinus opacification 4 mm rightward deviation of the nasal septum. Electronically authenticated by: OLIVIA RODRIGUEZ Date: 08/07/2024 15:02 Dictated By: Olivia Rodriguez M.D. Signed By: 08/07/24 1505 DD/ 150 TD/TT: Heel Painter: The [address] [address] [address] Scan Report Signed Patient: Alexis Lopez MR#: [id number] : 1965 Acct:[id number] Age/Sex: 58 / M ADM Date: 08/04/24 Loc: CT Attending Dr: Karla Coronado M.D. Ordering Physician: Mary Coronado M.D. Date of Service: 08/04/24 Procedure(s): CT sin us wo con Accession Number(s): [id number] cc: Mary Coronado M.D. [place] [address] Patient Name: SHAKILA LOPEZ MRN: [id number] date: 1965 Sex: M Assigned Patient Location: CT Current Patient Location: Accession/Order Numb er: [id number] Exam Date: 08/04/2024 10:05 Report Date: 08/07/2024 15:02 At the request of: MARY CORONADO Procedure: CT sinus wo con EXAMINATION: CT sinu s wo con HISTORY: Chronic Sinusitis, Sleep Apnea COMPARISON: No relev ant comparison available. TECHNIQUE: Axial and Coronal CT images were created without IV contrast. Dose reduction techniques were achieved by using automated exposure control and/or adjustment of mA and /or kV according to patient size and/or use of iterative reconstruction technique. FINDINGS: MAXILLARY SINUSES: N o significant mucosal thickening or fluid. Infundibula are patent. No significa nt anomalous inferior orbital ethmoid (Pamela) air cells. ETHMOID SINUSES: No significant mucosal thickening or fluid. Fovea ethmoidali and lamina papyracea are symmetric and intact. SPHENOID SINUSES: No significant mucosal thickening or fluid. Sphenoethmoidal recesses are patent. No bony dehiscence. FRONTAL SINUSES: No significant mucosal thickening or fluid. Frontal recesses are patent. NASAL FOSSA: 4 mm rightward deviation of the medial nasal septum. Small vandana bullosa left middle nasal turbinate or paradoxical turbinates are identified. OTHER: Negative. Limited views of the skull base and orbits are unremarkable. CT/CT sinus wo con IMPRESSION: No significant sinus opacification 4 mm rightward deviation of the nasal septum. Electronically authenticated by: OLIVIA RODRIGUEZ Date: 08/07/2024 15:02 Dictated By: Shahriar Rodriguez M.D. Signed By: 08/07/24 1505 DD/ 1502 TD/TT: Heel Painter: CT abdomen pelvis wo con Reviewed date:09/27/2024 07:35:47 PM Interpretation: Performing Lab: Notes/Report: Source Facility: [place] [address] CT Scan Report Signed Patient: SHAKILA LOPEZ MR#: [id number] : 1965 Acct:[id number] Age/Sex: 59 / M ADM Date: 09/27/24 Loc: CT Attending Dr: Mary Coronado M.D. Ordering Physician: Mary Coronado M.D. Date of Service: 09/27/24 Procedure(s): CT abdomen pelvis wo/w con Accession Number(s): [id number] cc: Mary Coronado M.D. [place] [address] Patient Name: SHAKILA LOPEZ MRN: [id number] date: 1965 Sex: M Assigned Patient Location: CT Current Patient Location: CT Accession/Order Number: [id number] Exam Date: 09/27/2024 11:26 Report Date: 09/27/2024 11:36 At the request of: MARY CORONADO MD Procedure: CT abdomen pelvis wo/w con CT ABDOMEN AND PELVIS WITHOUT AND WITH INTRAVENOUS CONTRAST CLINICAL DATA: Acute abdominal distention, low back pain and urinary frequency. COMPARISON: 06/23/2023 Spiral images were obtained through the abdomen and pelvis before and after intravenous administration of 100 mL of Omnipaque 300. This CT exam was performed using one or more following dose reduction techniques: Automated exposure control, adjustment of the mA and/or kV according to patient size, or use of iterative reconstruction technique. Limited cuts through the lung bases show minimal atelectasis. The kidneys are normal in size, position and contour. There is minor perinephric fibrofatty stranding. There is a potential punctate stone at the upper pole of the right kidney on the reconstructed images. No additional renal, ureteral or bladder stones are seen precontrast. Following contrast administration, the renal nephrograms are symmetric. No renal mass lesions are noted. No hydronephrosis is seen. The urinary bladder shows no obvious abnormalities for the degree of distention. No calcified gallstones are identified. There is fatty infiltration of the liver. No hepatic masses are seen. The spleen and pancreas show no acute findings. There is a similar tiny left adrenal nodule, likely adenoma.. The abdominal aorta is normal caliber and there is mild atherosclerotic plaque. No enlarged lymph nodes or ascites are identified. The small bowel loops are normal caliber. A small amount of colonic stool is present. Postoperative and degenerative changes are visualized at the spine. Images through the pelvis show a tiny umbilical hernia containing fat. There are normal caliber small bowel loops. The appendix is not well seen. There is a small amount of distal colonic stool. No diverticular disease is noted. The prostate is normal size and contains calcifications. There are mildly patulous inguinal rings containing fat. No ascites is seen. CT/CT abdomen pelvis wo/w con IMPRESSION: POSSIBLE RIGHT NEPHROLITHIASIS. NO BOWEL OR URINARY TRACT OBSTRUCTION. FATTY LIVER. NO ACUTE FINDINGS. Impression dictated by: Tamiko Patino M.D.09/27/2024 11:36 AM Dictation Location: [place] [address] Electronically authenticated by: [id number] Y Date: 09/27/2024 11:36 Dictated By: Tamiko Patino M.D. Signed By: 09/27/24 1139 DD/ 1136 TD/TT: Heel Painter: The [address] [address] [address] Scan Report Signed Patient: ALEXIS LOPEZ T MR#: [id number] : 1965 Acct:[id number] Age/Sex: 59 / M ADM Date: 09/27/24 Loc: CT Attending Dr: Karla Coronado M.D. Ordering Physician: Mary Coronado M.D. Date of Service: 09/27/24 Procedure(s): CT abdomen pelvis wo/w con Accession Number(s): [id number] cc: Mary Coronado M.D. [address] [address] Patient Name: SHAKILA LOPEZ MRN: [id number] date: 1965 Sex: M Assigned Patient Location: CT Current Patient Location: CT Accession/Order Numb er: [id number] Exam Date: 09/27/2024 11:26 Report Date: 09/27/2024 11:36 At the request of: MARY CORONADO MD Procedure: CT abdome n pelvis wo/w con CT ABDOMEN AND PELVI S WITHOUT AND WITH INTRAVENOUS CONTRAST CLINICAL DATA: Acute abdominal distention, low back pain and urinary frequency. COMPARISON: 06/23/2023 Spiral images were obtained through the abdomen and pelvis before and after intravenous administration of 100 mL of Omnipaque 300. This CT exam was performed using one or more following dose reduction techniques: Automated exposure control, adjustment of the mA and/or kV according to patient size, or use of iterative reconstruction technique. Limited cuts through the lung bases show minimal atelectasis. The kidneys are norm al in size, position and contour. There is minor perinephric fibrofat ty stranding. There is a potential punctate stone at the upper pole of the ri ght kidney on the reconstructed images. No additional renal, ureteral or bladder stones are seen precontrast. Following contrast administration, the renal nephrograms are symmetric. No renal mass lesions are noted. No hydronephrosis is seen. The urinary bladder shows no obvious abnormalities for th e degree of distention. No calcified gallsto guy are identified. There is fatty infiltration of the liver. No hepatic masses are seen. The spleen and pancreas show no acute findings. There is a similar tiny left adrenal nodule, likely adenoma.. The abdominal aorta is normal caliber and there is mild atherosclerotic plaque. No enlarged lymph no dara or ascites are identified. The small bowel loops are normal caliber. A sm all amount of colonic stool is present. Postoperative and degenerative changes are visualized at the spine. Images through the pelvis show a tiny umbilical hernia containing fat. There are normal caliber small bowel loops. The appendix is not well seen. There is a small amount of distal colonic stool. No diverticular disease is noted. The prostate is norm al size and contains calcifications. There are mildly patulous inguinal ri ngs containing fat. No ascites is seen. CT/CT abdomen pelvis wo/w con IMPRESSION: POSSIBLE RIGHT NEPHROLITHIASIS. NO BOWEL OR URINARY TRACT OBSTRUCTION. FATTY LIVER. NO ACUTE FINDINGS. Impression dictated by: Tamiko Patino M.D.09/27/2024 11:36 AM Dictation Location: [place] [address] Electronically authenticated by: [id number] Y Date: 09/27/2024 11:36 Dictated By: Tamiko Patino M.D. Signed By: 09/27/24 1139 DD/ 1136 TD/TT: Heel Painter: INSULIN Reviewed date:05/14/2024 01:27:55 PM Interpretation: Performing Lab: Notes/Report: [facility] , Insulin 31.2 2.6-24.9 uIU/mL Performed at: - [facility] [employer] Sales Representative: Cralyle Lancaster PhD, Phone: [phone] [address], [place] [id number] Performing Lab: see note - [facility] LB BNP Reviewed date:2024 06:24:42 PM Interpretation: Performing Lab: Notes/Report: [facility] , NT Pro B Type Natriuretic Pept 165.0 <=900.0 pg/mL Performing Lab: see note - [facility] LB UA DIP NONAUTO WO MICRO (810 02) - IN OFFICE Reviewed date:2024 06:24:42 PM Interpretation: Performing Lab: Notes/Report: COLOR yellow CLARITY clear GLUCOSE neg BILIRUBIN neg KETONE neg SPECIFIC GRAVITY 1.020 BLOOD trace PH 5 PROTEIN trace UROBILINOGEN neg NITRITE neg LEUKOCYTE ESTERASE neg TSH Reviewed date:2024 06:24:42 PM Interpretation: Performing Lab: Notes/Report: [facility] , Thyroid Stimulating Hormone 1.727 0.358-3.740 uIU/mL Performing Lab: see note - [facility] LB T4 Reviewed date:2024 06:24:42 PM Interpretation: Performing Lab: Notes/Report: [facility] , T4 Thyroxine 5.70 4.50-12.10 ug/dL Performing Lab: see note ML - [facility] LB PROF 14(COMP METB) Reviewed date:2024 06:24:42 PM Interpretation: Performing Lab: Notes/Report: [facility] , Sodium 142 136-145 mmol/L Potassium 4.4 3.5-5.1 mmol/L Chloride 105 98-107 mmol/L Carbon Dioxide 31.2 21.0-32.0 mmol/L Anion Gap 10.2 Glucose 102 74-106 mg/dL Blood Urea Nitrogen 17.0 7.0-18.0 mg/dL Creatinine 1.27 0.70-1.30 mg/dL Estimated GFR ( Kriss >60 >=60 mL/min/1.73m 2 Estimated GFR (Non- Shwetha 58 >=60 mL/min/1.73m 2 BUN Creatinine Ratio 13.4 Calcium 9.1 8.5-10.1 mg/dL Bilirubin Total 0.5 0.2-1.0 mg/dL Aspartate Amino Transferase 22 15-37 U/L Alanine Aminotransferase 35 16-63 U/L Alkaline Phosphatase 72 46-116 U/L Total Protein 6.8 6.4-8.2 g/dL Albumin Level 3.4 3.4-5.0 g/dL Globulin 3.4 Albumin Globulin Ratio 1.0 Performing Lab: see note ML - [facility] LB GLYCOHEMOGLOBIN A1C Reviewed date:2024 06:24:42 PM Interpretation: Performing Lab: Notes/Report: [facility] , Glycohemoglobin A1C 5.6 4.5-6.2 % ADA THERAPEUTIC TARGET < 7.0 > 7.0 ADA RECOMMENDED LIMIT 4.0 - 6.0 ACTION SUGGESTED Estimated Average Glucose 114 Performing Lab: see note ML - [facility] FREE T3 Reviewed date:2024 06:24:42 PM Interpretation: Performing Lab: Notes/Report: [facility] , Free T3 2.48 2.18-3.98 pg/mL Performing Lab: see note ML - [facility] LB CBC AUTO DIFF Reviewed date:2024 06:24:42 PM Interpretation: Performing Lab: Notes/Report: [facility] , White Blood Count 11.8 4.0-11.0 10 3/uL Red Blood Count 4.97 4.70-6.10 10 6/uL Hemoglobin 15.8 14.0-18.0 g/dL Hematocrit 48.5 42.0-54.0 % Mean Corpuscular Volume 97.6 80.0-94.0 fL Mean Corpuscular Hemoglobin 31.8 25.9-34.0 pg Mean Corpuscular HGB Conc 32.6 29.9-35.2 g/dL Red Cell Distribution Width 14.1 11.0-15.0 % Platelet Count 217 150-450 10 3/uL Mean Platelet Volume 8.6 9.5-13.5 fL Neutrophils Percent Auto 64.4 43.0-75.0 % Lymphocytes Percent Auto 27.1 20.5-60.0 % Monocytes Percent Auto 6.8 1.7-12.0 % Eosinophils Percent Auto 1.0 0.9-7.0 % Basophils Percent Auto 0.4 0.2-2.0 % Immature Granulocytes Pct Auto 0.3 0.0-0.5 % Neutrophils Absolute Auto 7.6 1.4-6.5 10 3/uL Lymphocytes Absolute Auto 3.2 1.2-3.8 10 3/uL Monocytes Absolute Auto 0.8 0.3-0.8 10 3/uL Eosinophils Absolute Auto 0.1 0.0-0.7 10 3/uL Basophils Absolute Auto 0.1 0.0-0.1 10 3/uL Immature Granulocytes Abs Auto 0.04 0.00-0.03 10 3/uL Performing Lab: see note ML - [facility] Reason For Referral Diagnosis 1 Urinary frequency (R 35.0) Diagnosis 2 Prostate pain (N42.8 1) Referral Organization [facility] Medicine Referring Provider First Name Vargas Referring Provider Last Name Raisa Referring Provider Speciality [facility] yary Referred Provider Danny Armendariz Referred Provider Specialty Urology Referral Priority Routine Medications Medication SIG (Take, Route, Fr equency, Duration) Notes Start Date End Date Status Motorized Scooter - daily use for increases ambulation for 365 days M51.26, R53.1 12/04/2024 Active Furosemide 40 MG 1 tablet Orally Once a day for 4 days 12/04/2024 Active Mounjaro 2.5 MG/0.5ML 2.5 mg Subcutaneous weekly 0 12/04/2024 Active Immunizations Vaccine Route Administration Date Status Comme nts Flu, Flucelvax (9613-5849) (54861) 6 mos +, single-dose syringe IM Intramuscular 08/04/2023 Administered Pneumococcal (Pneumovax 23) IM Intramuscular 08/04/2023 Administered Social History Tobacco Use: Social History Observation Description Date Details (start date - stop date) Never Smoker NA - NA Tobacco Use/Smoking Question Answer Notes Patient is a nonsmoker Alcohol Screen (Audit-C) Question Answer Notes Did you have a drink containing alcohol in the p ast year? No Points 0 Interpretation Negative AUDIT-C (Standard) Question Answer Notes Did you have a drink containing alcohol in the p ast year? No Points 0 Interpretation Negative Problems Problem Type SNOMED Code ICD Code Onset Dates Problem Status W/U Status Risk Notes Problem Spasm (93816520) Trapezius muscl e spasm (728.85) Active confirmed Problem Claustrophobia (76885685) Claustrophobia (F40.240) Active confirmed Problem Deviated nasal septum (527676396) Deviated nasal septum (J34.2) Active confirmed Problem Ankylosis of joint (194157284) Ankylosis, unspecified joint (M24.60) Active confirmed Problem Spasm of back muscles (550775897) Muscle spasm of back (M62.830) Active confirmed Problem Snoring (89538726) Snoring (R06.83) Active confirmed Problem Weakness (44964592) Weakness (R53.1) Active confirmed Problem Sprain of sacroiliac joint (96193100) Sprain of sacroiliac joint, initial encounter (S33.6XXA) Active confirmed Problem Obesity (084055982) Obesity (E66.9) Active confirmed Problem Anxiety (65415423) Anxiety (F41.9) Active confirmed Problem Urinary frequency (749184799) Urinary frequency (R35.0) Active confirmed Problem Gout (52489814) Gout (M10.9) Active confirmed Problem Dyspnea (958181585) Dyspnea (R06.00) Active confirmed Problem Obstructive sleep apnea (21084870) Obstructive sleep apnea (G47.33) Active confirmed Problem Hip pain (71003359) Hip pain (M25.559) Active confirmed Problem Chronic sinusitis (54689133) Chronic sinusitis (J32.9) Active confirmed Problem Fatty liver (108365781) Fatty liver (K76.0) Active confirmed Problem Well adult (157027580) Well adult (Z00.00) Active confirmed Problem Osteoarthritis (608168846) Osteoarthritis, unspecified osteoarthritis type, unspecified site (M19.90) Active confirmed Problem Displacement of lumbar intervertebral disc without myelopathy (57357835) Herniated lumbar disc without myelopathy (M51.26) Active confirmed Problem Hypertrophy of nasal turbinates (43343683) Hypertrophy, nasal, turbinate (J34.3) Active confirmed Problem Overweight (481411809) Over weight (E66.3) Active confirmed Problem Abdominal hernia (67578090) Abdominal hernia (K46.9) Active confirmed Problem Elevated blood pressure reading without diagnosis of hypertension (119399698) Elevated blood pressure (not hypertension) (R03.0) Active confirmed Problem Spondylosis, cervical, with myelopathy (M47.12) Active confirmed Problem Paresthesia of arm (01425387) Paresthesia of arm (R20.2) Active confirmed Problem 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) Active confirmed Problem Choking sensation (977068838) Choking sensation (R09.89) Active confirmed Problem Lipoma of skin (290425353) Lipoma of skin (D17.30) Active confirmed Problem 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) Neuropathy, idiopathic (G60.9) Active confirmed Problem Prostate pain (74330118) Prostate pain (N42.81) Active confirmed Problem Cyst of oral soft tissue (937815258) Cyst of oral region (K09.9) Active confirmed Problem Chronic cough (15239064) Chronic cough (R05.3) Active confirmed Problem Metabolic syndrome X (disorder) (325409940) Insulin resistance syndrome, Type A (E88.811) Active confirmed Vital Signs Blood pressure diastolic 72 mm Hg 12/04/2024 Height 59 in 12/04/2024 Blood pressure systolic 120 mm Hg 12/04/2024 Weight 337.4 lbs 12/04/2024 BMI 68.14 kg/m2 12/04/2024 Encounters Encounter Location Date Provider Diagnosis [facility] [address] [place] [address] 2024 Vargas Coronado Urinary frequency R3 5.0 ; Other low back pain M54.59 ; UTI (urinary tract infection), uncomplicated N39.0 ; Dysuria R30.0 and Abdominal pain R10.9 [facility] [address] [place] [address] 05/12/2024 Vargas Mikey Chronic sinusitis J3 2.9 and Hypertension 401.9 [facility] [address] [place] [address] 07/19/2024 Vargas Coronado Sleep apnea G47.30 a nd Chronic sinusitis J32.9 [facility] [address] [place] [address] 03/23/2024 Vargas Coronado Well adult Z00.00 ; Osteoarthritis, unspecified osteoarthritis type, unspecified site M19.90 and Pain in left knee M25.562 [facility] [address] [place] [address] 12/04/2024 Vargas Mckeonjacob Insulin resistance syndrome, Type A E88.811 ; Weakness R53.1 ; Herniated lumbar disc without myelopathy M51.26 and Edema R60.9 [facility] [address] [place] [address] 01/05/2024 MARY RAISA [facility] [address] [place] [address] 01/10/2024 Vargas Coronado [facility] [address] [place] [facility] [place] [address] 05/10/2024 Vargas Corondao [facility] [address] [place] [place] [address] 05/14/2024 Vargas Coronado [facility] [address] [place] [address] 06/26/2024 Vargas Coronado [facility] [address] [place] [address] 07/19/2024 Vargas Coronado [facility] [address] [place] [address] 08/07/2024 Vargas Coronado [facility] [address] [facility] [place] [address] 08/23/2024 Vargas jacob [facility] [address] [place] [facility] [place] [address] 2024 Vargas Coronado [facility] [address] [facility] [place] [address] 09/12/2024 Vargas [facility] [address] [place] [facility] [place] [address] 09/18/2024 Vargas [facility] [address] [place] [place] [address] 09/27/2024 Vargas Coronado Fatty liver K76.0 [facility] [address] [place] [address] 10/09/2024 Vargas [facility] [address] [place] [address] 11/01/2024 Vargas Coronado Sleep apnea G47.30 ; Urinary frequency R35.0 and Prostate pain N42.81 Assessments Encounter Date Diagnosis (ICD Code) Assessment Notes Treatment Notes Treatment Clinical Notes Section Notes 03/23/2024 Well adult (ICD-10 - Z00.00) 03/23/2024 Osteoarthritis, unspecified osteoarthritis type, unspecified site (ICD-10 - M19.90) 05/12/2024 Chronic sinusitis (ICD-10 - J32.9) 05/12/2024 Hypertension (ICD9-CM - 401.9) 07/19/2024 Sleep apnea (ICD-10 - G47.30) needs [facility] - recommending [facility] 07/19/2024 Chronic sinusitis (ICD-10 - J32.9) 2024 Urinary frequency (ICD-10 - R35.0) 2024 Other low back pain (ICD-10 - M54.59) 12/04/2024 Insulin resistance syndrome, Type A (ICD-10 - E88.811) 12/04/2024 Weakness (ICD-10 - R53.1) 09/27/2024 Fatty liver (ICD-10 - K76.0) 11/01/2024 Sleep apnea (ICD-10 - G47.30) 11/01/2024 Urinary frequency (ICD-10 - R35.0) 12/04/2024 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 Avoid drinks like coffee, alcohol and soft frinks, as these can irritate your bladder and aggravate your frequent or urgent need to urinate. Apply a warm heating pad to your abdomen to minimize bladder pressure or discomfort. You have been prescribed antibiotics for a urinary tract infection. Antibiotics may bother your stomach, so try taking them with a light meal (unless instructed otherwise by your pharmacist). It is important to take them until they are finished. You can use qucj-xjf-cyndrbm acetaminophen or ibuprofen if needed for pain. You should follow up with your Primary Care Physician or return to clinic if not improving in the next 3-5 days. 12/04/2024 Edema (ICD-10 - R60.9) neeed svenous doppler 11/01/2024 Prostate pain (ICD-10 - N42.81) 2024 Dysuria (ICD-10 - R30.0) 2024 Abdominal pain (ICD-10 - R10.9) Plan Of Treatment Pending Test Test Name Order Date CMP (COMPLETE METABOLIC PANEL) HEMOGLOBIN A1C (GLYCO) 03/23/2024 HEMOGLOBIN A1C (GLYCO) 2024 INSULIN, TOTAL 03/23/2024 LIPID PANEL (CHOL/TRIG/HDL/LDL) 03/23/20 24 CBC WITH DIFF 03/23/2024 URIC ACID 03/23/2024 XR Chest PA and Lateral (Routine CXR) * 07/05/2023 CT Abdomen w/contrast 05/31/2023 US Soft Tissue Neck/Head 11/04/2022 PSA, TOTAL 03/23/2024 INFLUENZA A AND B AG 07/05/2023 RESPIRATORY PANEL PLUS 07/05/2023 CT ABD and PELV W CON 2024 CT ABD and PELVIS WO CON 2024 US SHANIKA DOP LEG LT 12/04/2024 THYROID PANEL (T4/TSH/FREE T3) THYROID PANEL (T4/TSH/FREE T3) FIBROSCAN PROCEDURE 09/27/2024 CT sinus w con 07/19/2024 CMP (COMP MET MANN) w/eGFR CKD-EPI 2024 CBC WITH DIFF 2024 Insurance Providers Payer Name Payer Address Payer Phone Subscriber Number Group Number Insured Name Patient Relationship to Insured Coverage Start Date Coverage End Date [facility] [address] [place] LLANOS [phone] [id number] Shakila Lopez Self - patient is the insured Medications Administered Medication Instructions Date of Administration Dosage Notes DEPO-Medrol 05/26/2023 120 mg 120 Kenalog-40 11/04/2022 120 mg 120 Kenalog-40 11/01/2023 120 mg 120 Kenalog-40 03/23/2024 120 mg Ketorolac Tromethamine 11/04/2022 60 mg 60 Ketorolac Tromethamine 05/26/2023 60 mg 60 Ketorolac Tromethamine 11/01/2023 60 mg 60 Ketorolac Tromethamine 03/23/2024 60 mg Ketorolac Tromethamine 05/12/2024 60 mg Ketorolac Tromethamine 07/19/2024 60 mg Ketorolac Tromethamine 2024 60 mg Ketorolac Tromethamine 12/04/2024 60 mg Orphenadrine Citrate 11/04/2022 60 mg 60 Orphenadrine Citrate 05/26/2023 60 mg 60 Orphenadrine Citrate 12/04/2024 60 mg Triamcinolone 40 mg/ml 05/12/2024 120 mg Triamcinolone 40 mg/ml 07/19/2024 120 mg Triamcinolone 40 mg/ml 2024 120 mg Triamcinolone 40 mg/ml 12/04/2024 80 mg Medical (General) History Medical History History ICD Code Chronic cough R05.3 Over weight E66.3 Lipoma of skin D17.30 Neuropathy, idiopathic G60.9 Well adult Z00.00 Elevated blood pressure (not hypertensio n) R03.0 Anxiety F41.9 Claustrophobia F40.240 Urinary frequency R35.0 Dyspnea R06.00 Abdominal hernia K46.9 Gout M10.9 Choking sensation R09.89 Hypertrophy, nasal, turbinate J34.3 Deviated nasal septum J34.2 Obstructive sleep apnea G47.33 Snoring R06.83 Herniated lumbar disc without myelopathy M51.26 Ankylosis, unspecified joint M24.60 Sprain of sacroiliac joint, initial enco unter S33.6XXA Osteoarthritis, unspecified osteoarthrit is type, unspecified site M19.90 Hip pain M25.559 Obesity E66.9 Cyst of oral region K09.9 Spondylosis, cervical, with myelopathy M 47.12 Trapezius muscle spasm 728.85 Radiculopathy of cervicothoracic region M54.13 Paresthesia of arm R20.2 Weakness R53.1 Muscle spasm of back M62.830 Kidney Stone Surgical History Surgery Date(Month/Year) Lumbar Spinal Fusion- [facility] 03/13/2022 Lipoma Excision 2021 Uvulopalatopharyngnoplasty 2019 Tonsillectomy 2019 Septoplasty 2019 Total Knee Arthroscopy- Left 2013 Revision- Left Knee 10/06/2016 Lumbar Radiofrequency Ablation- Left, Dr Jenelle Fung 08/11/2018 Left Knee Nerve Block- Dr. Good Jun/Jul Hospitalization History Reason Date(Month/Year) see above
--- NOTE | 2024-12-04 12:08 | US_ITS ---
The [address] [address] Patient Name: SHAKILA LOPEZ MRN: [id number] date: 1965 Sex: M Assigned Patient Location: [facility] Current Patient Location: Accession/Order Number: [id number] Exam Date: 12/06/2024 10:19 Report Date: 12/06/2024 10:20 At the request of: MARY CORONADO MD Procedure: US venous doppler LE LT VENOUS DUPLEX ULTRASOUND - left lower extremity HISTORY / INDICATION: Left foot pain and swelling for the past 2 weeks. COMPARISON: NONE TECHNIQUE: Duplex and color Doppler ultrasound evaluation of the left lower extremity was performed. FINDINGS: The common femoral, superficial femoral and popliteal veins show normal flow and compressibility. No intraluminal filling defects are seen. The visualized calf veins and greater saphenous vein are also compressible. US/US venous doppler LE LT IMPRESSION: NO EVIDENCE OF DEEP VEIN THROMBOSIS OF THE LEFT LOWER EXTREMITY. Impression dictated by: Tamiko Patino M.D. 12/06/2024 10:20 AM Dictation Location: [place] [address] Electronically authenticated by: [id number] Y Date: 12/06/2024 10:20
== END 2024-12-04 11:58 | disposition home or self-care (01) ==
PROVIDERS: PCP Family Medicine; Visit Provider Family Medicine
DX: R60.0 Localized edema (principal)
CPT/HCPCS: 93971

== ENCOUNTER 2025-01-25 06:35 | Outpatient (OUT) | payer OTHER, SELFPAY ==
--- OUTSIDE RECORDS SUMMARY | 2025-01-25 06:41 | XMS_ITS | CCD ---
Author Organization [facility] Providers Care Services Executive Name Role Phone OLIVIA ZAMAN Unavailable Unavailable MARY CORONADO Unavailable Unavailable OLIVIA ZAMAN Unavailable Unavailable MARY CORONADO Unavailable Unavailable Mary Coronado MD Primary Care Provider [phone] MARY CORONADO Primary Care Unavailable MARY CORONADO Primary Care Unavailable MARY CORONADO Referring Unavailable ELGAFY, CHEIKH K Admitting Unavailable ELGAFY, CHEIKH K Attending Unavailable ELGAFY CHEIKH Attending Unavailable CHARAMBROSIO BURKETT Referring Unavailable ELGAFY, CHEIKH Referring Unavailable ELGAFY, [...] ., DR HERNANDEZ Consulting Unavailable OLIVIA BECKER Unavailable HOY ., DR HERNANDEZ Admitting Unavailable HOY ., DR HERNANDEZ Attending Unavailable HOY ., DR HERNANDEZ Primary Care Unavailable HOY ., DR HERNANDEZ Consulting Unavailable HOY ., DR HERNANDEZ Admitting Unavailable HOY ., DR HERNANDEZ Attending Unavailable HOY ., DR HERNANDEZ Primary Care Unavailable LEYDIY ., DR HERNANDEZ Consulting Unavailable Mary Coronado Primary Care Physician Mary Coronado MD Primary Care Provider [phone] [place] DAVID Attending Unavailable MARY CORONADO Primary Care Unavailable TRAY YOUSSEF Attending Unavailab le Mary Coronado Referring Unavailable Mary Coronado MD Primary Care Provider [phone] ALEJANDRO BIGGS U Admitting Unavailable ALEJANDRO BIGGS Attending Unavailable ALEJANDRO BIGGS Referring Unavailable MARY CORONADO Primary Care Unavailable JEANE FOSTER Consulting Unavailable OLIVIA HACKETT Referring Unavailable MARY CORONADO M Primary Care Unavailable MARY CORONADO M Primary Care Unavailable EDGARD DIEHL Attending Unavailable CANDIDO SEVLILA Admitting Unavailable MANSOOR DENIS Referring Unavailable MARY CORONADO M Primary Care Unavailable DIANE KHAN Attending Unavailable DIANE KHAN Referring Unavailable MARY CORONADO M Primary Care Unavailable Allergies Allergy Classification Reported Allergen(s) Allergy Type Date of Onset Reaction(s) Facility Opioid Agonists (1 source) Morphine Drug Allergy 02-23-2018 [facility] (14 sources) Morphine; Translations: [MORPHINE] Drug Allergy 01-28-2018 Itching [facility] Repository Medications Current Medications Medication Drug [...] spasm) 12 tablet 0 02/08/2021 02/12/2021 Active benzonatate 100 mg oral capsule (3 sources) Non-narcotic Antitussive Start: 01-01-2025 take 1 capsule by mouth three times daily as needed for cough benzonatate (TESSALON PERLES) 100 mg capsule Take 1 capsule (100 mg total) by mouth 3 (three) times a day as needed for cough. 20 capsule 01/01/2025 Active diazePAM 10 mg oral tablet (1 [...] tablet 3 02/23/2018 02/08/2021 Discontinued (LIST CLEANUP) doxycycline hyclate 100 mg oral capsule (1 source) Tetracycline-class Drug Start: 01-01-2025 End: 01-08-2025 take 1 capsule by mouth in the morning, then take 1 capsule by mouth at bedtime doxycycline (VIBRAMYCIN) 100 mg capsule Take 1 capsule (100 mg total) by mouth in the morning and 1 capsule (100 mg total) before bedtime. Do all this for 7 days. 14 capsule 01/01/2025 01/08/2025 Active esomeprazole 20 mg / naproxen 375 mg [...] 01/19/2018 08/08/2024 Discontinued (Course of therapy completed) 12 hr guaiFENesin 600 mg extended release oral tablet (1 source) Start: 01-01-2025 End: 01-08-2025 take 1 tablet by mouth once guaiFENesin (MUCINEX) 600 mg tablet extended release 12hr Take 1 tablet (600 mg total) by mouth every 12 (twelve) hours for 7 days. 14 tablet 01/01/2025 01/08/2025 Active hydrOXYzine hydrochloride 25 mg oral tablet (2 sources) Antihistamine Start: 01-04-2025 take 1 tablet by mouth once as needed for anxiety hydrOXYzine (ATARAX) 25 mg tablet Take 1 tablet (25 mg total) by mouth once as needed for anxiety. 01/04/2025 Active ketoconazole 20 mg/ml topical cream (2 sources) Azole Antifungal Start: 11-02-2024 ketoconazole (NIZORAL) 2 % cream Apply 1 Application topically in the morning. 11/02/2024 Active Ozempic 2 mg/3 mL (0.25 mg or 0.5 mg dose) subcutaneous solution (1 source) Start: 12-16-2022 inject 0.5 mg by subcutaneous injection every week Ozempic 2 mg/3 mL (0.25 mg or 0.5 mg dose) subcutaneous solution 0.5 mg, SubCutaneous, qWeek, Refills(s) 0 Start Date: 12/16/22 Status: Ordered predniSONE 10 mg oral tablet (3 sources) Start: 01-01-2025 predniSONE (DELTASONE) 10 mg tablet 3 tabs for 3 days, 2 tabs for 3 days, 1 tab for 3 days 18 tablet 01/01/2025 Active traMADol hydrochloride 50 mg oral tablet (1 [...] Drug Class(es) Dates Sig (Normalized) Sig (Original) amoxicillin 250 mg oral capsule (1 source) Penicillin-class Antibacterial take 1 capsule by mouth in the morning, then take 1 capsule by mouth at bedtime amoxicillin (AMOXIL) 250 mg capsule Take 1 capsule (250 mg total) by mouth in the morning and 1 capsule (250 mg total) before bedtime. Suspended methylPREDNISolone 125 mg injection (1 source) Corticosteroid Start: 1 End: 1 methylPREDNISolone sodium (SOLU-MEDROL) injection 60 mg Problems Active Problems Problem Classification Problem Date Documented Da te Episodic/Chronic Acute and unspecified renal failure (4 sources) Acute renal failure syndrome; Translations: [Acute kidney failure, unspecified] Onset: 5 12-26-2024 Episodic Acute bronchitis (1 source) Acute bronchitis, unspecified; Translations: [Acute bronchitis, unspecified] Onset: 5 Episodic Anxiety disorders (8 sources) Anxiety; Translations: [Claustrophobia] Onset: 5 08-08-2021 Chronic Calculus of urinary tract (2 sources) History of calculus of kidney 08-08-2021 Episodic Chronic obstructive pulmonary disease and bronchiectasis (5 sources) Bronchitis; Translations: [Bronchitis, not specified as acute or chronic] Onset: 5 12-26-2024 Episodic Diabetes mellitus without complication (1 source) Other abnormal glucose; Translations: [OTHER ABNORMAL GLUCOSE] Onset: 3 Episodic Disorders of lipid metabolism (1 source) Hyperlipidemia, unspecified; Translations: [HYPERLIPIDEMIA UNSPECIFIED] Onset: 3 Chronic Esophageal disorders (4 sources) Gastroesophageal reflux disease; Translations: [Gastro-esophageal reflux disease without esophagitis] Onset: 2 12-26-2024 Chronic Genitourinary symptoms and ill-defined conditions (6 sources) Nocturia; Translations: [Nocturia] Onset: 5 08-04-2024 Episodic Gout and other crystal arthropathies (6 sources) Gout; Translations: [Gout, unspecified] Onset: 5 08-08-2021 Chronic Headache; including migraine (4 sources) Migraine; Translations: [Migraine, unspecified, not intractable, without status migrainosus] Onset: 5 12-26-2024 Chronic Intestinal infection (4 sources) Enteropathogenic Escherichia coli gastrointestinal tract infection; Translations: [Enteropathogenic Escherichia coli infection] Onset: 5 12-28-2024 Episodic Mood disorders (8 sources) Depressive disorder; Translations: [Severe major depression] Onset: 5 09-18-2016 Chronic Nonspecific chest pain (1 source) Chest pain, unspecified; Translations: [Chest pain, unspecified] Onset: 5 Episodic Nutritional deficiencies (1 source) Vitamin D deficiency, unspecified; Translations: [VITAMIN D DEFICIENCY UNSPECIFIED] Onset: 3 Chronic Osteoarthritis (4 sources) Unilateral primary osteoarthritis, left knee; Translations: [UNI PRIM OSTEOARTHRITIS LT KNEE] Onset: 3 Chronic Other and unspecified benign neoplasm (2 sources) Lipoma of back 08-08-2021 Episodic Other circulatory disease (4 sources) Elevated blood-pressure reading, without diagnosis of hypertension; Translations: [ELEVATED BP READING W/O DX HTN] Onset: 3 Episodic Other circulatory disease (6 sources) Elevated blood-pressure reading without diagnosis of hypertension; Translations: [Elevated blood-pressure reading, without diagnosis of hypertension] Onset: 5 08-08-2021 Episodic Other connective tissue disease (2 sources) Presence of left artificial knee joint; Translations: [Presence of left artificial knee joint] Onset: 7 Chronic Other connective tissue disease (1 source) Artificial knee joint present; Translations: [Presence of left artificial knee joint] Onset: 8 01-28-2018 Chronic Other connective tissue disease (2 sources) Foot pain 09-18-2016 Episodic Other connective tissue disease (1 source) Disease suspected; Translations: [Other symptoms and signs involving the nervous system] 08-04-2024 Episodic Other connective tissue disease (1 source) Other symptoms and signs involving the nervous system; Translations: [Suspected sleep apnea] Onset: 5 Episodic Other ear and sense organ disorders (4 sources) Hearing loss; Translations: [Unspecified hearing loss, unspecified ear] Onset: 0 04-25-2020 Chronic Other gastrointestinal disorders (4 sources) Acute diarrhea; Translations: [Diarrhea, unspecified] Onset: 5 12-26-2024 Episodic Other gastrointestinal disorders (1 source) Diarrhea Onset: 5 Episodic Other hereditary and degenerative nervous system conditions (1 source) Restless legs; Translations: [Restless legs syndrome] 08-04-2024 Chronic Other hereditary and degenerative nervous system conditions (1 source) Restless legs syndrome; Translations: [RLS (restless legs syndrome)] Onset: 5 Chronic Other lower respiratory disease (2 sources) Snoring; Translations: [SNORING] Onset: 3 Episodic Other lower respiratory disease (5 sources) Dyspnea, unspecified; Translations: [DYSPNEA UNSPECIFIED] Onset: 3 Episodic Other lower respiratory disease (1 source) Snoring; Translations: [Snoring] 08-04-2024 Episodic Other lower respiratory disease (1 source) Apnea; Translations: [Apnea, not elsewhere classified] 08-04-2024 Episodic Other lower respiratory disease (1 source) Apnea, not elsewhere classified; Translations: [Witnessed episode of apnea] Onset: 5 Episodic Other lower respiratory disease (4 sources) Hypoxia; Translations: [Hypoxemia] Onset: 5 12-26-2024 Episodic Other lower respiratory disease (4 sources) Chest pain on breathing; Translations: [Chest pain on breathing] Onset: 5 12-27-2024 Episodic Other lower respiratory disease (1 source) Hypoxemia; Translations: [Hypoxemia] Onset: 5 Episodic Other lower respiratory disease (1 source) Shortness of breath; Translations: [Shortness of breath] Onset: 5 Episodic Other lower respiratory disease (1 source) Shortness of breath Onset: 5 Episodic Other lower respiratory disease (1 source) Cough Onset: 5 Episodic Other male genital disorders (1 source) Disorder of prostate, unspecified; Translations: [DISORDER OF PROSTATE UNSPECIFIED] Onset: 3 Episodic Other nervous system disorders (6 sources) Neuropathy; Translations: [Polyneuropathy, unspecified] Onset: 5 08-08-2021 Chronic Other nervous system disorders (1 source) Chronic pain; Translations: [Other chronic pain] Onset: 8 01-28-2018 Chronic Other non-traumatic joint disorders (1 source) Ankylosis of joint; Translations: [Ankylosis, unspecified joint] Onset: 8 01-28-2018 Chronic Other non-traumatic joint disorders (2 sources) Knee pain 09-18-2016 Episodic Comment on above: s/p left total knee arthroplast Other nutritional; endocrine; and metabolic disorders (6 sources) Body mass index 40+ - severely obese; Translations: [Morbid (severe) obesity due to excess calories] Onset: 5 08-13-2021 Chronic Other nutritional; endocrine; and metabolic disorders (6 sources) Morbid obesity; Translations: [Morbid (severe) obesity due to excess calories] Onset: 5 12-16-2022 Chronic Other nutritional; endocrine; and metabolic disorders (4 sources) Hypomagnesemia; Translations: [Hypomagnesemia] Onset: 5 12-26-2024 Chronic Other nutritional; endocrine; and metabolic disorders (1 source) Morbid (severe) obesity due to excess calories; Translations: [Morbid (severe) obesity due to excess calories] Onset: 5 Chronic Other nutritional; endocrine; and metabolic disorders (5 sources) Overweight; Translations: [OVERWEIGHT] Onset: 3 Episodic Other screening for suspected conditions (not mental disorders or infectious disease) (4 sources) Other specified abnormal findings of blood chemistry; Translations: [Other abnormal blood chemistry] Onset: 5 12-27-2024 Episodic Other skin disorders (2 sources) Hypertrophic condition of skin; Translations: [Other hypertrophic disorders of the skin] Onset: 3 Episodic Other skin disorders (2 sources) Multiple skin tags 12-16-2022 Episodic Other upper respiratory disease (6 sources) Deviated nasal septum; Translations: [Deviated nasal septum] Onset: 5 08-08-2021 Episodic Other upper respiratory disease (6 sources) Hypertrophy of nasal turbinates; Translations: [Hypertrophy of nasal turbinates] Onset: 5 08-08-2021 Episodic Residual codes; unclassified (3 sources) Obstructive sleep apnea (adult) (pediatric); Translations: [OBSTRUCTIVE SLEEP APNEA] Onset: 3 Chronic Residual codes; unclassified (11 sources) Obstructive sleep apnea syndrome; Translations: [Obstructive sleep apnea (adult) (pediatric)] Onset: 0 08-08-2021 Chronic Residual codes; unclassified (2 sources) Pain; Translations: [Pain] Onset: 2 Episodic Residual codes; unclassified (1 source) Frequent night waking; Translations: [Insomnia, unspecified] 08-04-2024 Episodic Residual codes; unclassified (1 source) Insomnia, unspecified; Translations: [Frequent nocturnal awakening] Onset: 5 Episodic Residual codes; unclassified (4 sources) Other specified health status; Translations: [Other specified conditions influencing health status] Onset: 5 12-26-2024 Episodic Respiratory failure; insufficiency; arrest (adult) (6 sources) Acute hypoxemic and hypercapnic respiratory failure; Translations: [Acute respiratory failure with hypoxia] Onset: 5 12-27-2024 Episodic Spondylosis; intervertebral disc disorders; other back problems (5 sources) Cervical spondylosis; Translations: [Prolapsed lumbar intervertebral disc] Onset: 8 08-08-2021 Chronic Viral infection (5 sources) Parainfluenza; Translations: [Other viral infections of unspecified site] Onset: 5 12-27-2024 Episodic Past or Other Problems Problem Classification Problem Date Documented Da te Episodic/Chronic Disorders of teeth and jaw (4 sources) Unspecified cyst of jaw; Translations: [Other cysts of jaws] Onset: 12-24-2020 12-24-2020 Episodic Mood disorders (4 sources) Mood disorders Onset: 06-24-2020 06-24-2020 Other connective tissue disease (1 source) Spasm; [...] Spondylosis; intervertebral disc disorders; other back problems (10 sources) Chronic low back pain; Translations: [Low back pain] Onset: 09-13-2017 Episodic Results Test Name Value Interpretation Reference Range Facility CBC WITH AUTO DIFFERENTIALon 12-31-2024 BASOPHILS ABSOLUTE COUNT (10*3/UL) BY AUTOMATED COUNT 0.1 10*3/uL Normal 0.0-0.2 [facility] Comment on above: Performed By: #### C BCA #### [facility]) [address] [place], [place] [id number] VIR BASOPHILS RELATIVE PERCENT BY AUTOMATED COUNT 0.5 % Normal [facility] Comment on above: Performed By: #### C BCA #### [facility] ([facility]) [address] [place] [address] VIR CELLAVISION DIFFERENTIAL TYPE AUTOMATED DIFFERENTIAL Normal [facility] Comment on above: Performed By: #### C BCA #### [facility] ([facility]) [address] [place] [address] VIR Eosinophils (Bld) [#/Vol] 0.0 10*3/uL Normal 0.0-0.4 [facility] Comment on above: Performed By: #### C BCA #### [facility]) [address] [place], [place] [id number] VIR EOSINOPHILS RELATIVE PERCENT BY AUTOMATED COUNT 0.0 % Normal [facility] Comment on above: Performed By: #### C BCA #### [facility]) [address] [place], [place] [id number] VIR Erythrocyte distribution width (RBC) [Ratio] 14.4 % Normal 11.5-15 [facility] Comment on above: Performed By: #### C BCA #### [facility] ([facility]) [address] [place], [place] [id number] VIR Hematocrit (Bld) [Volume fraction] 43.0 % Normal 39-50 [facility] Comment on above: Performed By: #### C BCA #### [facility] ([facility]) [address] [place] [address] VIR Hemoglobin (Bld) [Mass/Vol] 14.3 g/dL Normal 13-17 [facility] Comment on above: Performed By: #### C BCA #### [facility] ([facility]) [address] [place], [place] [id number] VIR LYMPHOCYTES ABSOLUTE COUNT (10*3/UL) BY AUTOMATED COUNT 2.0 10*3/uL Normal 1.0-3.5 [facility] Comment on above: Performed By: #### C BCA #### [place] [id number] VIR LYMPHOCYTES RELATIVE PERCENT BY AUTOMATED COUNT 15.5 % Normal [facility] Comment on above: Performed By: #### C BCA #### [facility] ([facility]) [address] [place] [address] VIR MCH (RBC) [Entitic mass] 30.8 pg Normal 27-34 [facility] Comment on above: Performed By: #### C BCA #### [facility] ([facility]) [address] [place] [address] VIR MCHC (RBC) [Mass/Vol] 33.3 g/dL Normal 32-36 [facility] Comment on above: Performed By: #### C BCA #### [facility] ([facility]) [address] [place] [address] VIR MCV (RBC) [Entitic vol] 92 fL Normal 80-100 [facility] Comment on above: Performed By: #### C BCA #### [facility]) [address] [place] [address] VIR MONOCYTES ABSOLUTE COUNT (10*3/UL) BY AUTOMATED COUNT 0.9 10*3/uL Normal 0.0-0.9 [facility] Comment on above: Performed By: #### C BCA #### [facility] ([facility]) [address] [place] [address] VIR MONOCYTES RELATIVE PERCENT BY AUTOMATED COUNT 6.7 % Normal [facility] Comment on above: Performed By: #### C BCA #### [facility] ([facility]) [address] [place] [address] VIR NEUTROPHILS ABSOLUTE COUNT BY AUTOMATED COUNT 10.2 10*3/uL High 1.5-6.6 [facility] Comment on above: Performed By: #### C BCA #### [facility] ([facility]) [address] [place] [address] VIR NEUTROPHILS RELATIVE PERCENT BY AUTOMATED COUNT 77.3 % Normal [facility] Comment on above: Performed By: #### C BCA #### [facility] ([facility]) [address] [place] [address] VIR Platelet mean volume (Bld) [Entitic vol] 6.7 fL Low 7-12 [facility] Comment on above: Performed By: #### C BCA #### [facility] ([facility]) [address] [place] [address] VIR Platelets (Bld) [#/Vol] 203 10*3/uL Normal 150-450 [facility] Comment on above: Performed By: #### C BCA #### [facility] ([facility]) [address] [place] [address] VIR RBC COUNT 4.65 X10E12/L Normal 4.1-5.7 [facility] Comment on above: Performed By: #### C BCA #### [facility] ([facility]) [address] [place] [address] VIR WBC (Bld) [#/Vol] 13.2 10*3/uL High 4-11 [facility] Comment on above: Performed By: #### C BCA #### [facility] ([facility]) [address] [place] [address] VIR COMPREHENSIVE METABOLIC PANE Dhiraj 12-31-2024 Albumin [Mass/Vol] 2.9 g/dL Low 3.2-5.3 [facility] Comment on above: Performed By: #### C BCA #### [address] [address] VIR ALP [Catalytic activity/Vol] 44 U/L Normal 39-130 [facility] Comment on above: Performed By: #### C BCA #### [address] [address] VIR ALT [Catalytic activity/Vol] 47 U/L High <=40 [facility] Comment on above: Performed By: #### C BCA #### [address] [address] VIR Anion gap [Moles/Vol] 5 mmol/L Normal 5-15 [facility] Comment on above: Performed By: #### C BCA #### [address] [address] VIR AST [Catalytic activity/Vol] 25 U/L Normal <=41 [facility] Comment on above: Performed By: #### C BCA #### [address] [address] VIR Bilirubin [Mass/Vol] 0.8 mg/dL Normal 0.3-1.2 [facility] Comment on above: Performed By: #### C BCA #### [address] [address] VIR Calcium [Mass/Vol] 8.5 mg/dL Normal 8.5-10.5 [facility] Comment on above: Performed By: #### C BCA #### [facility]) [address] [place] [address] VIR Chloride [Moles/Vol] 103 mmol/L Normal 98-109 [facility] Comment on above: Performed By: #### C BCA #### [facility]) [address] [place] [address] VIR CO2 [Moles/Vol] 33 mmol/L High 22-32 [facility] Comment on above: Performed By: #### C BCA #### [facility] ([facility]) [address] [place] [address] VIR Creatinine [Mass/Vol] 1.06 mg/dL Normal 0.70-1.20 [facility] Comment on above: Result Comment: METH OD TRACEABLE TO IDMS STANDARD Performed By: #### C BCA #### [facility] ([facility]) [address] [place] [address] VIR GFR/1.73 sq M.predicted among non-blacks MDRD (S/P/Bld) [Vol rate/Area] 81 mL/min/{1.73_m2} Normal >=60 [facility] Comment on above: Result Comment: eGFR not reported due to non-numeric value for Creatinine. Reported eGFR is based on the CKD-EPI 2020 equation that does not use a race coefficient. Performed By: #### C BCA #### [facility] ([facility]) [address] [place] [address] VIR Glucose [Mass/Vol] 124 mg/dL High 65-99 [facility] Comment on above: Performed By: #### C BCA #### [facility]) [address] [place] [address] VIR Potassium [Moles/Vol] 4.6 mmol/L Normal 3.5-5.0 [facility] Comment on above: Performed By: #### C BCA #### [facility] ([facility]) [address] [place] [address] VIR Protein [Mass/Vol] 5.6 g/dL Low 6.0-8.0 [facility] Comment on above: Performed By: #### C BCA #### [facility]) [address] [place] [address] VIR Sodium [Moles/Vol] 141 mmol/L Normal 134-146 [facility] Comment on above: Performed By: #### C BCA #### [facility] ([facility]) [address] [place], [place] [id number] VIR Urea nitrogen [Mass/Vol] 23 mg/dL Normal 5-23 [facility] Comment on above: Performed By: #### C BCA #### [facility] ([facility]) [address] [place], [place] [id number] VIR MAGNESIUMon 12-31-2024 Magnesium [Mass/Vol] 2.3 mg/dL Normal 1.8-2.6 [facility] Comment on above: Performed By: #### C BCA #### [place] [address] VIR CBC WITH AUTO DIFFERENTIALon 12-30-2024 BASOPHILS ABSOLUTE COUNT (10*3/UL) BY AUTOMATED COUNT 0.1 10*3/uL Normal 0.0-0.2 [facility] Comment on above: Performed By: #### C BCA #### [place] [id number] VIR BASOPHILS RELATIVE PERCENT BY AUTOMATED COUNT 0.6 % Normal [facility] Comment on above: Performed By: #### C BCA #### [place] [address] VIR CELLAVISION DIFFERENTIAL TYPE AUTOMATED DIFFERENTIAL Normal [facility] Comment on above: Performed By: #### C BCA #### [place] [id number] VIR Eosinophils (Bld) [#/Vol] 0.0 10*3/uL Normal 0.0-0.4 [facility] Comment on above: Performed By: #### C BCA #### [place] [id number] VIR EOSINOPHILS RELATIVE PERCENT BY AUTOMATED COUNT 0.0 % Normal [facility] [facility] Comment on above: Performed By: #### C BCA #### [facility] ([facility]) [address] [place] [address] VIR Erythrocyte distribution width (RBC) [Ratio] 14.5 % Normal 11.5-15 [facility] Comment on above: Performed By: #### C BCA #### [facility] ([facility]) [address] [place] [address] 03793 VIR Hematocrit (Bld) [Volume fraction] 45.8 % Normal 39-50 [facility] Comment on above: Performed By: #### C BCA #### [facility] ([facility]) [address] [place] [address] 52202 VIR Hemoglobin (Bld) [Mass/Vol] 15.5 g/dL Normal 13-17 [facility] Comment on above: Performed By: #### C BCA #### [facility] ([facility]) [address] [place] [address] 12958 VIR LYMPHOCYTES ABSOLUTE COUNT (10*3/UL) BY AUTOMATED COUNT 1.6 10*3/uL Normal 1.0-3.5 [facility] Comment on above: Performed By: #### C BCA #### [facility] ([facility]) [address] [place] [address] 12113 VIR LYMPHOCYTES RELATIVE PERCENT BY AUTOMATED COUNT 13.7 % Normal [facility] Comment on above: Performed By: #### C BCA #### [facility] ([facility]) [address] [place] [address] 66110 VIR MCH (RBC) [Entitic mass] 31.2 pg Normal 27-34 [facility] Comment on above: Performed By: #### C BCA #### [facility] ([facility]) [address] [place] [address] 62365 VIR MCHC (RBC) [Mass/Vol] 33.8 g/dL Normal 32-36 [facility] Comment on above: Performed By: #### C BCA #### [facility] ([facility]) [address] [place] [address] 21950 VIR MCV (RBC) [Entitic vol] 92 fL Normal 80-100 [facility] Comment on above: Performed By: #### C BCA #### [facility] ([facility]) [address] [place] [address] 38724 VIR MONOCYTES ABSOLUTE COUNT (10*3/UL) BY AUTOMATED COUNT 0.6 10*3/uL Normal 0.0-0.9 [facility] Comment on above: Performed By: #### C BCA #### [facility] ([facility]) [address] [place] [address] 86643 VIR MONOCYTES RELATIVE PERCENT BY AUTOMATED COUNT 4.9 % Normal [facility] Comment on above: Performed By: #### C BCA #### [facility] ([facility]) [address] [place] [address] 19569 VIR NEUTROPHILS ABSOLUTE COUNT BY AUTOMATED COUNT 9.4 10*3/uL High 1.5-6.6 [facility] Comment on above: Performed By: #### C BCA #### [facility]) [address] [place] [address] 25434 VIR NEUTROPHILS RELATIVE PERCENT BY AUTOMATED COUNT 80.8 % Normal [facility] Comment on above: Performed By: #### C BCA #### [facility] ([facility]) [address] [place] [address] 37601 VIR Platelet mean volume (Bld) [Entitic vol] 7.3 fL Normal 7-12 [facility] Comment on above: Performed By: #### C BCA #### [facility] ([facility]) [address] [place] [address] 60190 VIR Platelets (Bld) [#/Vol] 193 10*3/uL Normal 150-450 [facility] Comment on above: Performed By: #### C BCA #### [facility] ([facility]) [address] [place] [address] 37822 VIR RBC COUNT 4.96 X10E12/L Normal 4.1-5.7 [facility] Comment on above: Performed By: #### C BCA #### [facility] ([facility]) [address] [place] [address] 00512 VIR WBC (Bld) [#/Vol] 11.7 10*3/uL High 4-11 [facility] Comment on above: Performed By: #### C BCA #### [facility] ([facility]) [address] [place], [place] [id number] VIR COMPREHENSIVE METABOLIC PANE Dhiraj 12-30-2024 Albumin [Mass/Vol] 3.4 g/dL Normal 3.2-5.3 [facility] Comment on above: Performed By: #### C BCA #### [facility] ([facility]) [address] [place], [place] [id number] VIR ALP [Catalytic activity/Vol] 53 U/L Normal 39-130 [facility] Comment on above: Performed By: #### C BCA #### [place] [id number] VIR ALT [Catalytic activity/Vol] 58 U/L High <=40 [facility] Comment on above: Performed By: #### C BCA #### [facility] ([facility]) [address] [place], [place] [id number] VIR Anion gap [Moles/Vol] 5 mmol/L Normal 5-15 [facility] Comment on above: Performed By: #### C BCA #### [place] [id number] VIR AST [Catalytic activity/Vol] 36 U/L Normal <=41 [facility] Comment on above: Performed By: #### C BCA #### [facility] ([facility]) [address] [place], [place] [id number] VIR Bilirubin [Mass/Vol] 0.7 mg/dL Normal 0.3-1.2 [facility] Comment on above: Performed By: #### C BCA #### [place] [id number] VIR Calcium [Mass/Vol] 8.4 mg/dL Low 8.5-10.5 [facility] Comment on above: Performed By: #### C BCA #### [facility] ([facility]) [address] [place] [address] 52864 VIR Chloride [Moles/Vol] 103 mmol/L Normal 98-109 [facility] Comment on above: Performed By: #### C BCA #### [facility] ([facility]) [address] [place] [address] 60594 VIR CO2 [Moles/Vol] 31 mmol/L Normal 22-32 [facility] Comment on above: Performed By: #### C BCA #### [facility] ([facility]) [address] [place] [address] 91091 VIR Creatinine [Mass/Vol] 1.03 mg/dL Normal 0.70-1.20 [facility] Comment on above: Result Comment: METH OD TRACEABLE TO IDMS STANDARD Performed By: #### C BCA #### [facility]) [address] [place] [address] 39115 VIR GFR/1.73 sq M.predicted among non-blacks MDRD (S/P/Bld) [Vol rate/Area] 84 mL/min/{1.73_m2} Normal >=60 [facility] Comment on above: Result Comment: eGFR not reported due to non-numeric value for Creatinine. Reported eGFR is based on the CKD-EPI 1 equation that does not use a race coefficient. Performed By: #### C BCA #### [facility] ([facility]) [address] [place] [address] 65343 VIR Glucose [Mass/Vol] 147 mg/dL High 65-99 [facility] Comment on above: Performed By: #### C BCA #### [facility] ([facility]) [address] [place] [address] 54991 VIR Potassium [Moles/Vol] 4.4 mmol/L Normal 3.5-5.0 [facility] Comment on above: Performed By: #### C BCA #### [facility]) [address] [place] [address] 14599 VIR Protein [Mass/Vol] 6.4 g/dL Normal 6.0-8.0 [facility] Comment on above: Performed By: #### C BCA #### [facility] ([facility]) [address] [place] [address] 98184 VIR Sodium [Moles/Vol] 139 mmol/L Normal 134-146 [facility] Comment on above: Performed By: #### C BCA #### [facility] ([facility]) [address] [place] [address] 41329 VIR Urea nitrogen [Mass/Vol] 26 mg/dL High 5-23 [facility] Comment on above: Performed By: #### C BCA #### [facility] ([facility]) [address] [place], [place] [id number] VIR MAGNESIUMon 12-30-2024 Magnesium [Mass/Vol] 2.2 mg/dL Normal 1.8-2.6 [facility] Comment on above: Performed By: #### C BCA #### [place] [id number] VIR CBC WITH AUTO DIFFERENTIALon 12-29-2024 BASOPHILS ABSOLUTE COUNT (10*3/UL) BY AUTOMATED COUNT 0.0 10*3/uL Normal 0.0-0.2 [facility] Comment on above: Performed By: #### A BG #### [place] [id number] VIR BASOPHILS RELATIVE PERCENT BY AUTOMATED COUNT 0.2 % Normal [facility] Comment on above: Performed By: #### A BG #### [facility] ([facility]) [address] [place] [address] 84407 VIR CELLAVISION DIFFERENTIAL TYPE AUTOMATED DIFFERENTIAL Normal [facility] Comment on above: Performed By: #### A BG #### [facility] ([facility]) [address] [place], [place] [id number] VIR Eosinophils (Bld) [#/Vol] 0.0 10*3/uL Normal 0.0-0.4 [facility] Comment on above: Performed By: #### A BG #### [facility] ([facility]) [address] [place] [address] 42431 VIR EOSINOPHILS RELATIVE PERCENT BY AUTOMATED COUNT 0.0 % Normal [facility] Comment on above: Performed By: #### A BG #### [facility] ([facility]) [address] [place] [address] 56739 VIR Erythrocyte distribution width (RBC) [Ratio] 14.6 % Normal 11.5-15 [facility] Comment on above: Performed By: #### A BG #### [facility] ([facility]) [address] [place] [address] 21565 VIR Hematocrit (Bld) [Volume fraction] 44.2 % Normal 39-50 [facility] Comment on above: Performed By: #### A BG #### [facility] ([facility]) [address] [place] [address] 73770 VIR Hemoglobin (Bld) [Mass/Vol] 15.1 g/dL Normal 13-17 [facility] Comment on above: Performed By: #### A BG #### [facility] ([facility]) [address] [place] [address] 53498 VIR LYMPHOCYTES ABSOLUTE COUNT (10*3/UL) BY AUTOMATED COUNT 1.6 10*3/uL Normal 1.0-3.5 [facility] Comment on above: Performed By: #### A BG #### [facility] ([facility]) [address] [place] [address] 53615 VIR LYMPHOCYTES RELATIVE PERCENT BY AUTOMATED COUNT 14.1 % Normal [facility] Comment on above: Performed By: #### A BG #### [facility] ([facility]) [address] [place] [address] 60862 VIR MCH (RBC) [Entitic mass] 31.3 pg Normal 27-34 [facility] Comment on above: Performed By: #### A BG #### [facility] ([facility]) [address] [place] [address] 76426 VIR MCHC (RBC) [Mass/Vol] 34.1 g/dL Normal 32-36 [facility] Comment on above: Performed By: #### A BG #### [facility] ([facility]) [address] [place] [address] 86481 VIR MCV (RBC) [Entitic vol] 92 fL Normal 80-100 [facility] Comment on above: Performed By: #### A BG #### [facility] ([facility]) [address] [place] [address] 41700 VIR MONOCYTES ABSOLUTE COUNT (10*3/UL) BY AUTOMATED COUNT 0.6 10*3/uL Normal 0.0-0.9 [facility] Comment on above: Performed By: #### A BG #### [facility] ([facility]) [address] [place] [address] 85453 VIR MONOCYTES RELATIVE PERCENT BY AUTOMATED COUNT 5.3 % Normal [facility] Comment on above: Performed By: #### A BG #### [facility] ([facility]) [address] [place] [address] 62250 VIR NEUTROPHILS ABSOLUTE COUNT BY AUTOMATED COUNT 9.3 10*3/uL High 1.5-6.6 [facility] Comment on above: Performed By: #### A BG #### [facility] ([facility]) [address] [place] [address] 45048 VIR NEUTROPHILS RELATIVE PERCENT BY AUTOMATED COUNT 80.4 % Normal [facility] Comment on above: Performed By: #### A BG #### [facility] ([facility]) [address] [place] [address] 23531 VIR Platelet mean volume (Bld) [Entitic vol] 7.0 fL Normal 7-12 [facility] Comment on above: Performed By: #### A BG #### [facility] ([facility]) [address] [place] [address] 25845 VIR Platelets (Bld) [#/Vol] 175 10*3/uL Normal 150-450 [facility] Comment on above: Performed By: #### A BG #### [facility] ([facility]) [address] [place] [address] 80597 VIR RBC COUNT 4.82 X10E12/L Normal 4.1-5.7 [facility] Comment on above: Performed By: #### A BG #### [facility] ([facility]) [address] [place] [address] 31952 VIR WBC (Bld) [#/Vol] 11.6 10*3/uL High 4-11 [facility] Comment on above: Performed By: #### A BG #### [facility] ([facility]) [address] [place] [address] 70913 VIR COMPREHENSIVE METABOLIC PANE Dhiraj 12-29-2024 Albumin [Mass/Vol] 3.3 g/dL Normal 3.2-5.3 [facility] Comment on above: Performed By: #### A BG #### [facility] ([facility]) [address] [place] [address] 75021 VIR ALP [Catalytic activity/Vol] 53 U/L Normal 39-130 [facility] Comment on above: Performed By: #### A BG #### [facility] ([facility]) [address] [place] [address] 98274 VIR ALT [Catalytic activity/Vol] 45 U/L High <=40 [facility] Comment on above: Performed By: #### A BG #### [facility]) [address] [place] [address] 96058 VIR Anion gap [Moles/Vol] 6 mmol/L Normal 5-15 [facility] Comment on above: Performed By: #### A BG #### [facility] ([facility]) [address] [place] [address] 18564 VIR AST [Catalytic activity/Vol] 37 U/L Normal <=41 [facility] Comment on above: Performed By: #### A BG #### [facility] ([facility]) [address] [place] [address] 17567 VIR Bilirubin [Mass/Vol] 0.5 mg/dL Normal 0.3-1.2 [facility] Comment on above: Performed By: #### A BG #### [facility] [address] [place] [address] 13125 VIR Calcium [Mass/Vol] 8.1 mg/dL Low 8.5-10.5 [facility] Comment on above: Performed By: #### A BG #### [facility] ([facility]) [address] [place] [address] 93066 VIR Chloride [Moles/Vol] 105 mmol/L Normal 98-109 [facility] Comment on above: Performed By: #### A BG #### [facility] ([facility]) [address] [place] [address] 67278 VIR CO2 [Moles/Vol] 28 mmol/L Normal 22-32 [facility] Comment on above: Performed By: #### A BG #### [facility]) [address] [place] [address] 61641 VIR Creatinine [Mass/Vol] 1.01 mg/dL Normal 0.70-1.20 [facility] Comment on above: Result Comment: METH OD TRACEABLE TO IDMS STANDARD Performed By: #### A BG #### [facility] ([facility]) [address] [place] [address] 37817 VIR GFR/1.73 sq M.predicted among non-blacks MDRD (S/P/Bld) [Vol rate/Area] 86 mL/min/{1.73_m2} Normal >=60 [facility] Comment on above: Result Comment: eGFR not reported due to non-numeric value for Creatinine. Reported eGFR is based on the CKD-EPI 2021 equation that does not use a race coefficient. Performed By: #### A BG #### [facility] ([facility]) [address] [place] [address] 80528 VIR Glucose [Mass/Vol] 167 mg/dL High 65-99 [facility] Comment on above: Performed By: #### A BG #### [facility]) [address] [place] [address] 82043 VIR Potassium [Moles/Vol] 3.9 mmol/L Normal 3.5-5.0 [facility] Comment on above: Performed By: #### A BG #### [facility] ([place] [id number] VIR Protein [Mass/Vol] 6.2 g/dL Normal 6.0-8.0 [facility] Comment on above: Performed By: #### A BG #### [facility] ([place] [id number] VIR Sodium [Moles/Vol] 139 mmol/L Normal 134-146 [facility] Comment on above: Performed By: #### A BG #### [facility] ([place] [id number] VIR Urea nitrogen [Mass/Vol] 28 mg/dL High 5-23 [facility] Comment on above: Performed By: #### A BG #### [facility] ([place] [id number] VIR MAGNESIUMon 12-29-2024 Magnesium [Mass/Vol] 2.0 mg/dL Normal 1.8-2.6 [facility] Comment on above: Performed By: #### A BG #### [facility] ([place] [id number] VIR BLOOD GAS, VENOUSon 12-29-19 25 BASE,EXCESS 5.0 mmol/L High 0.0-2.0 [facility] Comment on above: Performed By: #### A BG #### [facility] ([facility]) [address] [place], [place] [id number] VIR HCO3 (Bld) [Moles/Vol] 34.3 mmol/L High 20.0-24.0 [facility] Comment on above: Performed By: #### A BG #### [facility] ([place] [id number] VIR INSP. O2 CONC. 8 % Normal [facility] Comment on above: Performed By: #### A BG #### [facility] ([facility]) [address] [place], [place] [id number] VIR Oxygen saturation in Blood 97.0 % Normal [facility] Comment on above: Performed By: #### A BG #### [facility] ([facility]) [address] [place] [address] 83751 VIR PCO2 VENOUS 66.4 mmHg High 35.0-50.0 [facility] Comment on above: Performed By: #### A BG #### [facility] ([facility]) [address] [place], [place] [address] VIR PH VENOUS 7.321 Normal 7.320-7.420 [facility] Comment on above: Performed By: #### A BG #### [facility]) [address] [place] [address] VIR PO2 VENOUS 103 mmHg High 30-50 [facility] Comment on above: Performed By: #### A BG #### [facility]) [address] [place], [place] [id number] VIR POC ANASTASIYA'S TEST N/A Normal [facility] Comment on above: Performed By: #### A BG #### [facility] ([facility]) [address] [place], [place] [id number] VIR SAMPLE SITE N/A [facility] Comment on above: Performed By: #### A BG #### [facility]) [address] [place] [address] VIR SAMPLE TYPE VENOUS Normal [facility] Comment on above: Performed By: #### A BG #### [facility] ([facility]) [address] [place] [address] 37662 VIR SOURCE OF OXYGEN NC Normal [facility] Comment on above: Performed By: #### A BG #### [facility] ([facility]) [address] [place], [place] [id number] VIR BLOOD GAS, VENOUS VBG BLOOD GAS, VENOU S Cancelled Normal [facility] CBC WITH AUTO DIFFERENTIALon 12-28-2024 BASOPHILS ABSOLUTE COUNT (10*3/UL) BY AUTOMATED COUNT 0.0 10*3/uL Normal 0.0-0.2 [facility] Comment on above: Performed By: #### A BG #### [facility] ([facility]) [address] [place], [place] [id number] VIR BASOPHILS RELATIVE PERCENT BY AUTOMATED COUNT 0.3 % Normal [facility] Comment on above: Performed By: #### A BG #### [facility] ([facility]) [address] [place], [place] [address] VIR CELLAVISION DIFFERENTIAL TYPE AUTOMATED DIFFERENTIAL Normal [facility] Comment on above: Performed By: #### A BG #### [facility]) [address] [place], [place] [id number] VIR Eosinophils (Bld) [#/Vol] 0.0 10*3/uL Normal 0.0-0.4 [facility] Comment on above: Performed By: #### A BG #### [facility] ([facility]) [address] [place] [address] VIR EOSINOPHILS RELATIVE PERCENT BY AUTOMATED COUNT 0.0 % Normal [facility] Comment on above: Performed By: #### A BG #### [place] [address] VIR Erythrocyte distribution width (RBC) [Ratio] 14.7 % Normal 11.5-15 [facility] Comment on above: Performed By: #### A BG #### [facility] ([facility]) [address] [place], [place] [id number] VIR Hematocrit (Bld) [Volume fraction] 47.0 % Normal 39-50 [facility] Comment on above: Performed By: #### A BG #### [facility] ([facility]) [address] [place], [place] [id number] VIR Hemoglobin (Bld) [Mass/Vol] 16.1 g/dL Normal 13-17 [facility] Comment on above: Performed By: #### A BG #### [facility] ([facility]) [address] [place] [address] 90664 VIR LYMPHOCYTES ABSOLUTE COUNT (10*3/UL) BY AUTOMATED COUNT 1.7 10*3/uL Normal 1.0-3.5 [facility] Comment on above: Performed By: #### A BG #### [facility] ([facility]) [address] [place] [address] 30437 VIR LYMPHOCYTES RELATIVE PERCENT BY AUTOMATED COUNT 12.5 % Normal [facility] Comment on above: Performed By: #### A BG #### [facility] ([facility]) [address] [place] [address] 58507 VIR MCH (RBC) [Entitic mass] 31.2 pg Normal 27-34 [facility] Comment on above: Performed By: #### A BG #### [facility] ([facility]) [address] [place] [address] 14313 VIR MCHC (RBC) [Mass/Vol] 34.2 g/dL Normal 32-36 [facility] Comment on above: Performed By: #### A BG #### [facility] ([facility]) [address] [place] [address] 67088 VIR MCV (RBC) [Entitic vol] 91 fL Normal 80-100 [facility] Comment on above: Performed By: #### A BG #### [facility] ([facility]) [address] [place] [address] 16936 VIR MONOCYTES ABSOLUTE COUNT (10*3/UL) BY AUTOMATED COUNT 1.0 10*3/uL High 0.0-0.9 [facility] Comment on above: Performed By: #### A BG #### [facility] ([facility]) [address] [place] [address] 83823 VIR MONOCYTES RELATIVE PERCENT BY AUTOMATED COUNT 7.2 % Normal [facility] Comment on above: Performed By: #### A BG #### [facility] ([facility]) [address] [place] [id number] VIR NEUTROPHILS ABSOLUTE COUNT BY AUTOMATED COUNT 10.7 10*3/uL High 1.5-6.6 [facility] Comment on above: Performed By: #### A BG #### [facility] ([facility]) [address] [place] [id number] VIR NEUTROPHILS RELATIVE PERCENT BY AUTOMATED COUNT 80.0 % Normal [facility] Comment on above: Performed By: #### A BG #### [facility] ([facility]) [address] [place] [address] [id number] VIR Platelet mean volume (Bld) [Entitic vol] 6.6 fL Low 7-12 [facility] Comment on above: Performed By: #### A BG #### [facility] ([facility]) [address] [place] [address] [id number] VIR Platelets (Bld) [#/Vol] 183 10*3/uL Normal 150-450 [facility] Comment on above: Performed By: #### A BG #### [facility] ([facility]) [address] [place] [address] 23767 VIR RBC COUNT 5.14 X10E12/L Normal 4.1-5.7 [facility] Comment on above: Performed By: #### A BG #### [facility] ([facility]) [address] [place] [address] 64386 VIR WBC (Bld) [#/Vol] 13.3 10*3/uL High 4-11 [facility] Comment on above: Performed By: #### A BG #### [facility] ([facility]) [address] [place] [address] 31587 VIR COMPREHENSIVE METABOLIC PANE Dhiraj 12-28-2024 Albumin [Mass/Vol] 3.6 g/dL Normal 3.2-5.3 [facility] Comment on above: Performed By: #### A BG #### [facility] ([facility]) [address] [place] [address] 93840 VIR ALP [Catalytic activity/Vol] 58 U/L Normal 39-130 [facility] Comment on above: Performed By: #### A BG #### [facility] ([facility]) [address] [place] [address] 74353 VIR ALT [Catalytic activity/Vol] 40 U/L Normal <=40 [facility] Comment on above: Performed By: #### A BG #### [facility]) [address] [place] [address] 31063 VIR Anion gap [Moles/Vol] 9 mmol/L Normal 5-15 [facility] Comment on above: Performed By: #### A BG #### [facility] ([facility]) [address] [place] [address] 11102 VIR AST [Catalytic activity/Vol] 37 U/L Normal <=41 [facility] Comment on above: Performed By: #### A BG #### [facility] ([facility]) [address] [place] [address] 04734 VIR Bilirubin [Mass/Vol] 0.6 mg/dL Normal 0.3-1.2 [facility] Comment on above: Performed By: #### A BG #### [facility] ([facility]) [address] [place] [address] 51181 VIR Calcium [Mass/Vol] 8.5 mg/dL Normal 8.5-10.5 [facility] Comment on above: Performed By: #### A BG #### [facility]) [address] [place] [address] 78070 VIR Chloride [Moles/Vol] 101 mmol/L Normal 98-109 [facility] Comment on above: Performed By: #### A BG #### [facility] ([facility]) [address] [place] [address] 07652 VIR CO2 [Moles/Vol] 29 mmol/L Normal 22-32 [facility] Comment on above: Performed By: #### A BG #### [facility]) [address] [place] [address] 23649 VIR Creatinine [Mass/Vol] 1.09 mg/dL Normal 0.70-1.20 [facility] Comment on above: Result Comment: METH OD TRACEABLE TO IDMS STANDARD Performed By: #### A BG #### [facility]) [address] [place] [address] 46423 VIR GFR/1.73 sq M.predicted among non-blacks MDRD (S/P/Bld) [Vol rate/Area] 79 mL/min/{1.73_m2} Normal >=60 [facility] Comment on above: Result Comment: eGFR not reported due to non-numeric value for Creatinine. Reported eGFR is based on the CKD-EPI 2020 equation that does not use a race coefficient. Performed By: #### A BG #### [address] [address] VIR Glucose [Mass/Vol] 129 mg/dL High 65-99 [facility] Comment on above: Performed By: #### A BG #### [address] 118[address] VIR Potassium [Moles/Vol] 4.6 mmol/L Normal 3.5-5.0 [facility] Comment on above: Performed By: #### A BG #### [address] [address] VIR Protein [Mass/Vol] 6.9 g/dL Normal 6.0-8.0 [facility] Comment on above: Performed By: #### A BG #### [address] [address] VIR Sodium [Moles/Vol] 139 mmol/L Normal 134-146 [facility] Comment on above: Performed By: #### A BG #### [address] [address] VIR Urea nitrogen [Mass/Vol] 25 mg/dL High 5-23 [facility] Comment on above: Performed By: #### A BG #### [address] [address] VIR HEPATITIS PANEL, ACUTEon ANTI HCV W/PCR REFLX Non-Reactive Normal Non-Reactiv e [facility] Comment on above: Result Comment: If r ecent infection suspected, recommend repeat testing (>2 months). Jsvylh-cs-rixzmd ratio is <1.0. Performed By: #### A BG #### [facility] ([facility]) [address] [place] [address] 94561 VIR HEPATITIS A IGM Non-Reactive Normal Non-Reactiv e [facility] Comment on above: Performed By: #### A BG #### [facility] ([facility]) [address] [place] [address] 27349 VIR HEPATITIS B CORE IGM Non-Reactive Normal Non-Reactiv e [facility] Comment on above: Performed By: #### A BG #### [facility] ([facility]) [address] [place] [address] 97536 VIR HEPATITIS B SURF AG Non-Reactive Normal Non-Reactiv e [facility] Comment on above: Performed By: #### A BG #### [facility] ([facility]) [address] [place] [address] 23549 VIR MAGNESIUMon 12-28-2024 Magnesium [Mass/Vol] 2.1 mg/dL Normal 1.8-2.6 [facility] Comment on above: Performed By: #### A BG #### [facility] ([facility]) [address] [place] [address] 21378 VIR BLOOD GAS, ARTERIALon 2024 BASE,DEFICIT -1.0 mmol/L Low 0.0-2.0 [facility] Comment on above: Performed By: #### A BG #### [facility] ([facility]) [address] [place] [address] 74800 VIR HCO3 (Bld) [Moles/Vol] 26.7 mmol/L High 22.0-26.0 [facility] Comment on above: Performed By: #### A BG #### [facility]) [address] [place] [address] 93594 VIR INSP. O2 CONC. 52 % Normal [facility] Comment on above: Performed By: #### A BG #### [facility] ([facility]) [address] [place] [address] 29134 VIR Oxygen saturation in Blood 97.0 % Normal >90.0 [facility] Comment on above: Performed By: #### A BG #### [facility] ([facility]) [address] [place] [address] 96744 VIR PCO2 ARTERIAL 54.1 mmHg High 35.0-45.0 [facility] Comment on above: Performed By: #### A BG #### [facility] ([facility]) [address] [place] [address] 90795 VIR PH ARTERIAL 7.301 Low 7.350-7.450 [facility] Comment on above: Performed By: #### A BG #### [facility] ([facility]) [address] [place], [place] [id number] VIR PO2 ARTERIAL 108 mmHg High 80-100 [facility] Comment on above: Performed By: #### A BG #### [facility] ([facility]) [address] [place] [address] 71323 VIR POC ANASTASIYA'S TEST Pass Normal [facility] Comment on above: Performed By: #### A BG #### [facility] ([facility]) [address] [place] [address] 82924 VIR SAMPLE SITE L Rad Normal [facility] Comment on above: Performed By: #### A BG #### [facility] ([facility]) [address] [place] [address] 11939 VIR SAMPLE TYPE ARTERIAL Normal [facility] Comment on above: Performed By: #### A BG #### [facility] ([facility]) [address] [place] [address] 95768 VIR SOURCE OF OXYGEN NC Normal [facility] Comment on above: Performed By: #### A BG #### [facility]) [address] [place] [address] 51917 VIR BLOOD GAS, VENOUSon 12-28-19 25 BASE,EXCESS 0.0 mmol/L Normal 0.0-2.0 [facility] Comment on above: Performed By: #### V BG #### [facility] ([facility]) [address] [place] [address] VIR HCO3 (Bld) [Moles/Vol] 27.5 mmol/L High 20.0-24.0 [facility] Comment on above: Performed By: #### V BG #### [facility] ([facility]) [address] [place] [address] VIR INSP. O2 CONC. 40 % Normal [facility] Comment on above: Performed By: #### V BG #### [facility] ([facility]) [address] [place] [address] VIR Oxygen saturation in Blood 79.0 % Normal [facility] Comment on above: Performed By: #### V BG #### [place] [id number] VIR PCO2 VENOUS 52.4 mmHg High 35.0-50.0 [facility] Comment on above: Performed By: #### V BG #### [facility] ([facility]) [address] [place], [place] [id number] VIR PH VENOUS 7.329 Normal 7.320-7.420 [facility] Comment on above: Performed By: #### V BG #### [facility] ([facility]) [address] [place], [place] [id number] VIR PO2 VENOUS 47 mmHg Normal 30-50 [facility] Comment on above: Performed By: #### V BG #### [facility] ([facility]) [address] [place] [address] 45672 VIR POC ANASTASIYA'S TEST N/A Normal [facility] Comment on above: Performed By: #### V BG #### [facility] ([facility]) [address] [place], [place] [id number] VIR SAMPLE SITE N/A Normal [facility] Comment on above: Performed By: #### V BG #### [facility] ([facility]) [address] [place] [address] 35035 VIR SAMPLE TYPE VENOUS Normal [facility] Comment on above: Performed By: #### V BG #### [facility] ([facility]) [address] [place] [address] VIR SOURCE OF OXYGEN NC Normal [facility] Comment on above: Performed By: #### V BG #### [facility] ([facility]) [address] [place] [address] VIR BLOOD GAS, VENOUS VBG BLOOD GAS, VENOU S Cancelled Normal [facility] CBC WITH AUTO DIFFERENTIALon 12-27-2024 BASOPHILS ABSOLUTE COUNT (10*3/UL) BY AUTOMATED COUNT 0.0 10*3/uL Normal 0.0-0.2 [facility] Comment on above: Performed By: #### C BCA #### [facility] ([facility]) [address] [place], [place] [id number] VIR BASOPHILS RELATIVE PERCENT BY AUTOMATED COUNT 0.4 % [facility] Comment on above: Performed By: #### C BCA #### [facility] ([facility]) [address] [place] [address] VIR CELLAVISION DIFFERENTIAL TYPE AUTOMATED DIFFERENTIAL Normal [facility] Comment on above: Performed By: #### C BCA #### [facility] ([facility]) [address] [place], [place] [id number] VIR Eosinophils (Bld) [#/Vol] 0.0 10*3/uL Normal 0.0-0.4 [facility] Comment on above: Performed By: #### C BCA #### [facility] ([facility]) [address] [place], [place] [id number] VIR EOSINOPHILS RELATIVE PERCENT BY AUTOMATED COUNT 0.2 % [facility] Comment on above: Performed By: #### C BCA #### [facility] ([facility]) [address] [place], [place] [id number] VIR Erythrocyte distribution width (RBC) [Ratio] 14.6 % Normal 11.5-15 [facility] Comment on above: Performed By: #### C BCA #### [facility] ([place] [id number] VIR Hematocrit (Bld) [Volume fraction] 48.9 % Normal 39-50 [facility] Comment on above: Performed By: #### C BCA #### [facility] ([place] [id number] VIR Hemoglobin (Bld) [Mass/Vol] 16.6 g/dL Normal 13-17 [facility] Comment on above: Performed By: #### C BCA #### [place] [id number] VIR LYMPHOCYTES ABSOLUTE COUNT (10*3/UL) BY AUTOMATED COUNT 1.4 10*3/uL Normal 1.0-3.5 [facility] Comment on above: Performed By: #### C BCA #### [facility] ([place] [id number] VIR LYMPHOCYTES RELATIVE PERCENT BY AUTOMATED COUNT 11.2 % Normal [facility] Comment on above: Performed By: #### C BCA #### [place] [id number] VIR MCH (RBC) [Entitic mass] 31.4 pg Normal 27-34 [facility] Comment on above: Performed By: #### C BCA #### [facility] ([place] [id number] VIR MCHC (RBC) [Mass/Vol] 34.0 g/dL Normal 32-36 [facility] Comment on above: Performed By: #### C BCA #### [place] [id number] VIR MCV (RBC) [Entitic vol] 92 fL Normal 80-100 [facility] Comment on above: Performed By: #### C BCA #### [facility] ([facility]) [address] [place] [address] 66341 VIR MONOCYTES ABSOLUTE COUNT (10*3/UL) BY AUTOMATED COUNT 1.1 10*3/uL High 0.0-0.9 [facility] Comment on above: Performed By: #### C BCA #### [facility] ([facility]) [address] [place] [address] 58151 VIR MONOCYTES RELATIVE PERCENT BY AUTOMATED COUNT 8.9 % Normal [facility] Comment on above: Performed By: #### C BCA #### [facility] ([facility]) [address] [place] [address] 51217 VIR NEUTROPHILS ABSOLUTE COUNT BY AUTOMATED COUNT 9.7 10*3/uL High 1.5-6.6 [facility] Comment on above: Performed By: #### C BCA #### [facility] ([facility]) [address] [place] [address] 50207 VIR NEUTROPHILS RELATIVE PERCENT BY AUTOMATED COUNT 79.3 % Normal [facility] Comment on above: Performed By: #### C BCA #### [facility] ([facility]) [address] [place] [address] 85192 VIR Platelet mean volume (Bld) [Entitic vol] 8.4 fL Normal 7-12 [facility] Comment on above: Performed By: #### C BCA #### [facility] ([facility]) [address] [place] [address] 69889 VIR Platelets (Bld) [#/Vol] 211 10*3/uL Normal 150-450 [facility] Comment on above: Performed By: #### C BCA #### [facility] ([facility]) [address] [place] [address] 43134 VIR RBC COUNT 5.30 X10E12/L Normal 4.1-5.7 [facility] Comment on above: Performed By: #### C BCA #### [facility] ([facility]) [address] [place] [address] [place] [address] VIR WBC (Bld) [#/Vol] 12.3 10*3/uL High 4-11 [facility] Comment on above: Performed By: #### C BCA #### [facility] ([facility]) [address] [place] [address] 41149 VIR COMPREHENSIVE METABOLIC PANE Dhiraj 12-27-2024 Albumin [Mass/Vol] 3.9 g/dL Normal 3.2-5.3 [facility] Comment on above: Performed By: #### C MP #### [facility] ([facility]) [address] [place] [address] 51761 VIR ALP [Catalytic activity/Vol] 64 U/L Normal 39-130 [facility] Comment on above: Performed By: #### C MP #### [facility] ([facility]) [address] [place] [address] 40865 VIR ALT [Catalytic activity/Vol] 44 U/L High <=40 [facility] Comment on above: Performed By: #### C MP #### [facility]) [address] [place] [address] 40651 VIR Anion gap [Moles/Vol] 12 mmol/L Normal 5-15 [facility] Comment on above: Performed By: #### C MP #### [address] [address] VIR AST [Catalytic activity/Vol] 44 U/L High <=41 [facility] Comment on above: Performed By: #### C MP #### [facility] ([facility]) [address] [place] [address] 18128 VIR Bilirubin [Mass/Vol] 0.8 mg/dL Normal 0.3-1.2 [facility] Comment on above: Performed By: #### C MP #### [facility] ([facility]) [address] [place] [address] 17766 VIR Calcium [Mass/Vol] 8.6 mg/dL Normal 8.5-10.5 [facility] Comment on above: Performed By: #### C MP #### [facility] ([facility]) [address] [place] [address] 54888 VIR Chloride [Moles/Vol] 96 mmol/L Low 98-109 [facility] Comment on above: Performed By: #### C MP #### [facility] ([facility]) [address] [place] [address] 69596 VIR CO2 [Moles/Vol] 27 mmol/L Normal 22-32 [facility] Comment on above: Performed By: #### C MP #### [facility] ([facility]) [address] [place] [address] 68206 VIR Creatinine [Mass/Vol] 1.27 mg/dL High 0.70-1.20 [facility] Comment on above: Result Comment: METH OD TRACEABLE TO IDMS STANDARD Performed By: #### C MP #### [facility]) [address] [place] [address] 80118 VIR GFR/1.73 sq M.predicted among non-blacks MDRD (S/P/Bld) [Vol rate/Area] 65 mL/min/{1.73_m2} Normal >=60 [facility] Comment on above: Result Comment: eGFR not reported due to non-numeric value for Creatinine. Reported eGFR is based on the CKD-EPI 2020 equation that does not use a race coefficient. Performed By: #### C MP #### [facility] ([facility]) [address] [place] [address] 49021 VIR Glucose [Mass/Vol] 159 mg/dL High 65-99 [facility] Comment on above: Performed By: #### C MP #### [facility] ([facility]) [address] [place] [address] 51785 VIR Potassium [Moles/Vol] 4.9 mmol/L Normal 3.5-5.0 [facility] Comment on above: Performed By: #### C MP #### [facility] ([facility]) [address] [place] [address] 79853 VIR Protein [Mass/Vol] 7.5 g/dL Normal 6.0-8.0 [facility] Comment on above: Performed By: #### C MP #### [facility] ([facility]) [address] [place] [address] 83151 VIR Sodium [Moles/Vol] 135 mmol/L Normal 134-146 [facility] Comment on above: Performed By: #### C MP #### [facility] ([facility]) [address] [place] [address] 17881 VIR Urea nitrogen [Mass/Vol] 23 mg/dL Normal 5-23 [facility] Comment on above: Performed By: #### C MP #### [facility] ([facility]) [address] [place] [address] 20732 VIR GI PANEL STOOL PATHOGEN PANE Dhiraj 12-27-2024 ADENOVIRUS Not detected Normal Not Detected [facility] Comment on above: Performed By: #### A BG #### [address] [address] VIR AGGREGATIVE E COLI Not detected Normal Not Detected [facility] Comment on above: Performed By: #### A BG #### [facility] ([facility]) [address] [place] [address] 84832 VIR ASTROVIRUS Not detected Normal Not Detected [facility] Comment on above: Performed By: #### A BG #### [address] [place] [address] VIR CAMPYLOBACTER Not detected Normal Not Detected [facility] Comment on above: Performed By: #### A BG #### [facility] ([facility]) [address] [place] [address] [place] [address] VIR CRYPTOSPORIDIUM Not detected Normal Not Detected [facility] Comment on above: Performed By: #### A BG #### [facility] ([address] [address] VIR CYCLOSPORA Not detected Normal Not Detected [facility] Comment on above: Performed By: #### A BG #### [address] [place] [address] VIR E HISTOLYTICA Not detected Normal Not Detected [facility] Comment on above: Performed By: #### A BG #### [facility] ([facility]) [address] [place] [address], [place] [address] VIR GIARDIA LAMBLIA Not detected Normal Not Detected [facility] Comment on above: Performed By: #### A BG #### [facility] ([facility]) [address] [place] [address], [place] [address] VIR NOROVIRUS Not detected Normal Not Detected [facility] Comment on above: Performed By: #### A BG #### [facility] ([facility]) [address] [place] [address] [place] [address] VIR PATHOGENIC E COLI Detected Abnormal Not Detected [facility] Comment on above: Result Comment: Ente ropathogenic Escherichia coli Performed By: #### A BG #### [facility]) [address] [place] [address] [place] [address] VIR PLESIOMONAS Not detected Normal Not Detected [facility] Comment on above: Performed By: #### A BG #### [facility] ([facility]) [address] [place] [address], [place] [address] VIR ROTAVIRUS A Not detected Normal Not Detected [facility] Comment on above: Performed By: #### A BG #### [facility]) [address] [place] [address], [place] [address] VIR SALMONELLA Not detected Normal Not Detected [facility] Comment on above: Performed By: #### A BG #### [facility] ([facility]) [address] [place] [address], [place] [address] VIR SAPOVIRUS Not detected Normal Not Detected [facility] Comment on above: Performed By: #### A BG #### [facility] ([facility]) [address] [place] [address], [place] [address] VIR SHIGA TOXIN E COLI Not detected Normal Not Detected [facility] Comment on above: Performed By: #### A BG #### [facility] ([facility]) [address] [place] [address], [place] [address] VIR SHIGELLA-E COLI Not detected Normal Not Detected [facility] Comment on above: Performed By: #### A BG #### [facility] ([facility]) [address] [place] [address] VIR TOXIGENIC E COLI Not detected Normal Not Detected [facility] Comment on above: Performed By: #### A BG #### [facility] ([facility]) [address] [place] [address] VIR VIBRIO Not detected Normal Not Detected [facility] Comment on above: Performed By: #### A BG #### [facility] ([facility]) [address] [place] [address] 9[address] VIR VIBRIO CHOLERAE Not detected Normal Not Detected [facility] Comment on above: Performed By: #### A BG #### [facility]) [address] [place] [address] VIR Y. ENTEROCOLITICA Not detected Normal Not Detected [facility] Comment on above: Performed By: #### A BG #### [facility] ([facility]) [address] [place] [address] VIR MAGNESIUMon 12-27-2024 Magnesium [Mass/Vol] 2.1 mg/dL Normal 1.8-2.6 [facility] Comment on above: Performed By: #### M G #### [facility]) [address] [place], [place] [id number] VIR TROP I, HIGH SENSITIVITY 1 H OURon 12-27-2024 TROPONIN I, HIGH SENSITIVITY 13 ng/L Normal <21 [facility] Comment on above: Performed By: #### T [email or web address] #### [facility] ([facility]) [address] [place] [id number] VIR TROPONIN I, HIGH SENSITIVITY 0 HOURon 12-27-2024 TROPONIN I, HIGH SENSITIVITY 12 ng/L Normal <21 [facility] Comment on above: Performed By: #### T NIHS0 #### [facility]) [address] [place] [address] VIR APTTon 12-26-2024 aPTT Coag (Bld) [Time] 31 s Normal 26-37 [facility] Comment on above: Performed By: #### P TT #### [facility] ([facility]) [address] [place] [address] VIR B-TYPE NATRIURETIC PEPTIDEon 12-26-2024 Natriuretic peptide B (d) [Mass/Vol] 27 pg/mL Normal <=100 [facility] Comment on above: Performed By: #### B TAX PROCESSOR #### [facility] ([facility]) [address] [place] [address] VIR BLOOD CULTUREon 12-26-2024 Bacteria identified Cx Nom (Bld) CULTURE RESULTS NO GROWTH 5 DAYS Normal [facility] Comment on above: Order Comment: *SIRS Criteria: (must display 2 without other explanation)-Temperature < 36 or >38-Pulse >90-Resp rate >20-WBC less than 4K or greater than 12KRepeat blood cultures not needed:-To document that a blood culture is a contaminant when 1 of 2 bottles is positive for a common contaminant (already listed in [facility] with the culture result)-To document clearance of gram negative bacteremia in patients with suspected urinary source who are improvingSuboptimal volume of blood collected, Results may be affected. Performed By: #### C BCA #### [facility] ([address] [address] VIR Bacteria identified Cx Nom (Bld) CULTURE RESULTS NO GROWTH 5 DAYS Normal [facility] Comment on above: Order Comment: *SIRS Criteria: (must display 2 without other explanation)-Temperature < 36 or >38-Pulse >90-Resp rate >20-WBC less than 4K or greater than 12KRepeat blood cultures not needed:-To document that a blood culture is a contaminant when 1 of 2 bottles is positive for a common contaminant (already listed in Epic with the culture result)-To document clearance of gram negative bacteremia in patients with suspected urinary source who are improving Performed By: #### C BCA #### [facility] ([facility]) [address] [place] [address] VIR BLOOD GAS, ARTERIALon 2024 BASE,DEFICIT -1.0 mmol/L Low 0.0-2.0 [facility] Comment on above: Performed By: #### A BG #### [facility] ([facility]) [address] [place] [address] VIR HCO3 (Bld) [Moles/Vol] 23.8 mmol/L Normal 22.0-26.0 [facility] Comment on above: Performed By: #### A BG #### [facility] ([facility]) [address] [place] [address] VIR INSP. O2 CONC. 36 % Normal [facility] Comment on above: Performed By: #### A BG #### [facility] ([facility]) [address] [place], [place] [phone] VIR Oxygen saturation in Blood 92.0 % Normal >90.0 [facility] Comment on above: Performed By: #### A BG #### [facility] ([facility]) [address] [place] [address] VIR PCO2 ARTERIAL 40.4 mmHg Normal 35.0-45.0 [facility] Comment on above: Performed By: #### A BG #### [facility] ([facility]) [address] [place] [address] VIR PH ARTERIAL 7.378 Normal 7.350-7.450 [facility] Comment on above: Performed By: #### A BG #### [facility] ([facility]) [address] [place] [address] VIR PO2 ARTERIAL 64 mmHg Low 80-100 [facility] Comment on above: Performed By: #### A BG #### [facility] ([facility]) [address] [place] [address] VIR POC ANASTASIYA'S TEST Pass Normal [facility] Comment on above: Performed By: #### A BG #### [facility]) [address] [place], [place] [phone] VIR SAMPLE SITE R Rad Normal [facility] Comment on above: Performed By: #### A BG #### [facility] ([facility]) [address] [place] [address] VIR SAMPLE TYPE ARTERIAL Normal [facility] Comment on above: Performed By: #### A BG #### [facility] ([facility]) [address] [place] [address] VIR SOURCE OF OXYGEN NC Normal [facility] Comment on above: Performed By: #### A BG #### [facility] ([facility]) [address] [place] [address] VIR CBC WITH AUTO DIFFERENTIALon 12-26-2024 BASOPHILS ABSOLUTE COUNT (10*3/UL) BY AUTOMATED COUNT 0.0 10*3/uL Normal 0.0-0.2 [facility] Comment on above: Performed By: #### C BCA #### [facility] ([address] [address] VIR BASOPHILS RELATIVE PERCENT BY AUTOMATED COUNT 0.4 % Normal [facility] Comment on above: Performed By: #### C BCA #### [facility] ([address] [address] VIR CELLAVISION DIFFERENTIAL TYPE AUTOMATED DIFFERENTIAL Normal [facility] Comment on above: Performed By: #### C BCA #### [facility] ([address] [address] VIR Eosinophils (Bld) [#/Vol] 0.1 10*3/uL Normal 0.0-0.4 [facility] Comment on above: Performed By: #### C BCA #### [facility] ([address] [address] VIR EOSINOPHILS RELATIVE PERCENT BY AUTOMATED COUNT 1.8 % Normal [facility] Comment on above: Performed By: #### C BCA #### [facility] ([address] [address] VIR Erythrocyte distribution width (RBC) [Ratio] 14.6 % Normal 11.5-15 [facility] Comment on above: Performed By: #### C BCA #### [facility] ([address] [address] VIR Hematocrit (Bld) [Volume fraction] 48.9 % Normal 39-50 [facility] Comment on above: Performed By: #### C BCA #### [facility] ([address] [address] VIR Hemoglobin (Bld) [Mass/Vol] 16.6 g/dL Normal 13-17 [facility] Comment on above: Performed By: #### C BCA #### [facility] ([address] [address] VIR LYMPHOCYTES ABSOLUTE COUNT (10*3/UL) BY AUTOMATED COUNT 0.9 10*3/uL Low 1.0-3.5 [facility] Comment on above: Performed By: #### C BCA #### [facility] ([address] [address] VIR LYMPHOCYTES RELATIVE PERCENT BY AUTOMATED COUNT 11.8 % Normal [facility] Comment on above: Performed By: #### C BCA #### [facility] ([address] [address] VIR MCH (RBC) [Entitic mass] 31.3 pg Normal 27-34 [facility] Comment on above: Performed By: #### C BCA #### [facility] ([address] [address] VIR MCHC (RBC) [Mass/Vol] 34.0 g/dL Normal 32-36 [facility] Comment on above: Performed By: #### C BCA #### [facility] ([address] [address] VIR MCV (RBC) [Entitic vol] 92 fL Normal 80-100 [facility] Comment on above: Performed By: #### C BCA #### [facility] ([address] [address] VIR MONOCYTES ABSOLUTE COUNT (10*3/UL) BY AUTOMATED COUNT 0.8 10*3/uL Normal 0.0-0.9 [facility] Comment on above: Performed By: #### C BCA #### [facility] ([address] [address] VIR MONOCYTES RELATIVE PERCENT BY AUTOMATED COUNT 10.1 % Normal [facility] Comment on above: Performed By: #### C BCA #### [facility] ([address] [address] VIR NEUTROPHILS ABSOLUTE COUNT BY AUTOMATED COUNT 5.7 10*3/uL Normal 1.5-6.6 [facility] Comment on above: Performed By: #### C BCA #### [facility] ([address] [address] VIR NEUTROPHILS RELATIVE PERCENT BY AUTOMATED COUNT 75.9 % Normal [facility] Comment on above: Performed By: #### C BCA #### [facility] ([address] [address] VIR Platelet mean volume (Bld) [Entitic vol] 6.8 fL Low 7-12 [facility] Comment on above: Performed By: #### C BCA #### [facility] ([address] [address] VIR Platelets (Bld) [#/Vol] 187 10*3/uL Normal 150-450 [facility] Comment on above: Performed By: #### C BCA #### [facility] ([address] [address] VIR RBC COUNT 5.31 X10E12/L Normal 4.1-5.7 [facility] Comment on above: Performed By: #### C BCA #### [facility] ([facility]) [address] [place] [address] VIR WBC (Bld) [#/Vol] 7.6 10*3/uL Normal 4-11 [facility] Comment on above: Performed By: #### C BCA #### [facility] ([facility]) [facility] [place] [address] VIR COMPREHENSIVE METABOLIC PANE Dhiraj 12-26-2024 Albumin [Mass/Vol] 3.8 g/dL Normal 3.2-5.3 [facility] Comment on above: Performed By: #### C MP #### [facility] ([facility]) [facility] [place] [address] VIR ALP [Catalytic activity/Vol] 72 U/L Normal 39-130 [facility] Comment on above: Performed By: #### C MP #### [facility] ([address] [place] [address] VIR ALT [Catalytic activity/Vol] 43 U/L High <=40 [facility] Comment on above: Performed By: #### C MP #### [facility] ([address] [address] VIR Anion gap [Moles/Vol] 9 mmol/L Normal 5-15 [facility] Comment on above: Performed By: #### C MP #### [facility] ([place] [address] [place] [address] VIR AST [Catalytic activity/Vol] 40 U/L Normal <=41 [facility] Comment on above: Performed By: #### C MP #### [facility] ([place] [address] [facility] [place] [address] VIR Bilirubin [Mass/Vol] 0.9 mg/dL Normal 0.3-1.2 [facility] Comment on above: Performed By: #### C MP #### [facility] ([address] [place] [address] VIR Calcium [Mass/Vol] 8.5 mg/dL Normal 8.5-10.5 [facility] Comment on above: Performed By: #### C MP #### [facility] ([address] [place] [address] VIR Chloride [Moles/Vol] 103 mmol/L Normal 98-109 [facility] Comment on above: Performed By: #### C MP #### [facility] ([address] [place] [address] VIR CO2 [Moles/Vol] 26 mmol/L Normal 22-32 [facility] Comment on above: Performed By: #### C MP #### [facility] ([address] [place] [address] VIR Creatinine [Mass/Vol] 1.35 mg/dL High 0.70-1.20 [facility] Comment on above: Result Comment: METH OD TRACEABLE TO IDMS STANDARD Performed By: #### C MP #### [facility] ([address] [address] VIR GFR/1.73 sq M.predicted among non-blacks MDRD (S/P/Bld) [Vol rate/Area] 61 mL/min/{1.73_m2} Normal >=60 [facility] Comment on above: Result Comment: eGFR not reported due to non-numeric value for Creatinine. Reported eGFR is based on the CKD-EPI 2021 equation that does not use a race coefficient. Performed By: #### C MP #### [facility] ([address] [place] [address] VIR Glucose [Mass/Vol] 117 mg/dL High 65-99 [facility] Comment on above: Performed By: #### C MP #### [facility] ([place]) [address] [place] [address] VIR Potassium [Moles/Vol] 4.3 mmol/L Normal 3.5-5.0 [facility] Comment on above: Performed By: #### C MP #### [facility] ([facility]) [address] [place] [address] VIR Protein [Mass/Vol] 7.0 g/dL Normal 6.0-8.0 [facility] Comment on above: Performed By: #### C MP #### [facility] ([facility]) [address] [place] [address] VIR Sodium [Moles/Vol] 138 mmol/L Normal 134-146 [facility] Comment on above: Performed By: #### C MP #### [facility] ([place] [address] [place] [address] VIR Urea nitrogen [Mass/Vol] 16 mg/dL Normal 5-23 [facility] Comment on above: Performed By: #### C MP #### [facility] ([place] [address] [place] [address] CTA CHESTon 12-26-[address] CTA CHEST STUDY: CT angiography of the chest with contrast CLINICAL HISTORY: Hypoxia, elevated d-dimer. COMPARISON: None. TECHNIQUE: CT angiography of the chest was performed utilizing thin section axial images with coronal and sagittal reformatted images generated. 3-D maximum intensity projection coronal and sagittal reformatted images generated and reviewed. Images acquired following the uneventful administration of 100 cc Omnipaque 350 nonionic intravenous contrast. Automated exposure control was utilized. FINDINGS: No significant findings at the thoracic inlet, body wall. Hepatic steatosis. Intramural fatty deposition within the distal esophagus. Severe calcified coronary arterial disease. Nonenlarged heart. Patent great vessels. No acute aortic pathology. Suboptimal pulmonary arterial opacification. No acute pulmonary embolus to the lumbar level. Bronchial wall thickening, which may be seen in the setting of airway infection/inflammation. Mosaic attenuation of the lungs, most often seen in the setting of small airways disease.. IMPRESSION: 1. Suboptimal pulmonary arterial opacification. No pulmonary embolus to the lobar level. 2. Bronchial wall thickening, which may be seen in the setting of airway infection/inflammation. Mosaic attenuation of the lungs, most often seen in the setting of small airways disease. All CT scans at this facility use dose modulation, iterative reconstruction, and/or weight based dosing when appropriate to reduce radiation dose to as low as reasonably achievable. Finalized by Barrett Soria MD on 12/26/2024 1:12 AM Normal [facility] D-DIMERon 12-26-2024 D DIMER 481 ug/mL High 1-255 [facility] Comment on above: Result Comment: Resu lts >255 ng/mL DDU: Results may be indicative of the presence of VTE. The use of the Wells score and further diagnostic tests should be considered. Elevated D-Dimer levels can be associated with DIC, neoplasm, , trauma and liver disease. Elevated levels of rheumatoid factor may lead to an overestimation of the D-Dimer level. Performed By: #### D DMR #### [facility] ([facility]) [address] [place] [address] [place] [address] VIR GI PANEL STOOL PATHOGEN PANE Dhiraj 12-26-2024 GI PANEL STOOL PATHOGEN PANEL GIP GI PANEL STOOL PATHOGEN PANEL Cancelled Normal [facility] LACTATE W/ REFLEXon 12-27-19 25 LACTATE W/REFLEX 1.5 mmol/L Normal 0.4-2.0 [facility] Comment on above: Order Comment: Resul t did not trigger repeat Lactate, re-order if needed. Performed By: #### L ACTS #### [facility] ([address] [place] [address] VIR MAGNESIUMon 12-26-2024 Magnesium [Mass/Vol] 1.7 mg/dL Low 1.8-2.6 [facility] Comment on above: Performed By: #### M G #### [facility] ([address] [place] [address] VIR PROTIME AND INRon 12-26-2024 INR 1.0 Normal 0.9-1.2 [facility] Comment on above: Performed By: #### P INR #### [facility] ([address] [address] VIR PT Coag (PPP) [Time] 11.9 s Normal 9.8-13.2 [facility] Comment on above: Performed By: #### P INR #### [facility] ([address] [address] VIR TROP I, HIGH SENSITIVITY 1 H OURon 12-26-2024 TROPONIN I, HIGH SENSITIVITY 11 ng/L Normal <21 [facility] Comment on above: Performed By: #### C BCA #### [facility] ([address] [address] VIR TROPONIN I, HIGH SENSITIVITY 0 HOURon 12-26-2024 TROPONIN I, HIGH SENSITIVITY 13 ng/L Normal <21 [facility] Comment on above: Performed By: #### T NIHS0 #### [facility] ([address] [address] VIR XR CHEST 1 VWon 12-26-2024 XR CHEST 1 VW XR CHEST 1 VW HISTORY: Cough, wheezing, difficulty breathing COMPARISON: Chest x-ray 06/27/2020 FINDINGS: Frontal view of the chest was performed. Mild vascular congestion with pulmonary edema. Bibasilar atelectasis. No significant pleural effusion or pneumothorax. Stable cardiac silhouette. Cervical fusion hardware is intact. IMPRESSION: * Mild vascular congestion and pulmonary edema with bibasilar atelectasis. Finalized by Jr Cox MD on 12/26/2024 12:19 AM Normal [facility] RESP PATHOGENS PANEL/SARS-CO V-2on 12-25-2024 SARS-CoV-2 (COVID-19) RNA WADE+probe Ql (Resp) SARS COV 2 BY PCR Not Detected ADENOVIRUS Not Detected CORONAVIRUS 229E Not Detected CORONAVIRUS HKU1 Not Detected CORONAVIRUS NL63 Not Detected CORONAVIRUS OC43 Not Detected HUMAN METAPNEUVIRUS Not Detected RHINO/ENTEROVIRUS Not Detected INFLUENZA A Not Detected INFLUENZA B Not Detected PARAINFLUENZA 1 Not Detected PARAINFLUENZA 2 Not Detected PARAINFLUENZA 3 Detected PARAINFLUENZA 4 Not Detected RESP SYNCYTIAL VIRUS Not Detected BORD PARAPERTUSSIS Not Detected BORDETELLA PERTUSSIS Not Detected CHLAM.PNEUMONIAE Not Detected MYCOPLASMA PNEUMONIAE Not Detected Normal Not Detected [facility] Comment on above: Order Comment: The [employer] Respiratory Panel 2.1 (RP2.1) is a multiplexed nucleic acid test intended for the simultaneous qualitative detection and differentiation of nucleic acid from multiple viral and bacterial respiratory organisms, including nucleic acid from Severe Acute Respiratory Syndrome Coronavirus 2 (SARS-CoV-2), in nasopharyngeal swabs obtained from individuals suspected of COVID-19 by their healthcare provider. Testing is limited to laboratories certified under the Clinical Laboratory Improvement Amendments of 1988 (CLIA), to perform high complexity or moderate complexity tests.SARS-CoV-2 RNA and nucleic acids from the other respiratory viral and bacterial organisms identified by this test are generally detectable in nasopharyngeal swabs during the acute phase of infection. The detection and identification of specific viral and bacterial nucleic acids from individuals exhibiting signs and/or symptoms of respiratory infection is indicative of the presence of the identified microorganism and aids in the diagnosis of respiratory infection if used in conjunction with other clinical and epidemiological information. Positive results are indicative of the presence of the identified organism, but do not rule out co-infection with other pathogens. The agent(s) detected by the [employer] RP2.1 may not be the definite cause of disease and clinical correlation with patient history and other diagnostic information is necessary to determine patient infection status.Negative results in the setting of a respiratory illness may be due to infection with pathogens not detected by this test, or lower respiratory tract infection that may not be detected by a nasopharyngeal specimen. Negative results do not preclude SARS-CoV-2 infection and should not be used as the sole basis for patient management decisions. Negative KHUSHI-CoV-2 results must be combined with clinical observations, patient history and epidemiological information. Negative results for other organisms identified by the test may require additional laboratory testing when evaluating a patient with possible respiratory tract infection. Performed By: #### C BCA #### [facility] ([facility]) [address] [place] [address]. [place] [address] VIR SARS/FLU A+B/RSV BY NAAT/MOL ECULAR (M4RT COLLECTION TUBE)on 12-25-2024 SARS/FLU A+B/RSV BY NAAT/MOLECULAR (M4RT COLLECTION TUBE) FLU A PCR Negative FLU B PCR Negative RSV BY PCR Negative SARS COV 2 BY PCR Not Detected Normal Not Detected [facility] Comment on above: Order Comment: The X [employer] Xpress SARS-CoV-2/Flu/RSV Plus test is a rapid, multiplexed real-time RT-PCR test intended for the simultaneous qualitative detection and differentiation of SARS-CoV-2, influenza A, influenza B and respiratory syncytial virus (RSV) viral RNA from individuals suspected of respiratory viral infection consistent with COVID-19 by Their healthcare provider. This test has not been validated in asymptomatic patients. The Xpert Xpress SARS-CoV-2 test is intended for use by qualified and trained operators who are performing tests using either [employer] or [employer] systems and is limited to laboratories that meet the CLIA requirements to perform high and moderate complexity tests. The Xpert Xpress SARS-CoV-2/Flu/RSV Plus is only for use under the Food and Drug Administration's Emergency Use Authorization. Results are for the simultaneous detection and differentiation of SARS-CoV-2, influenza A, influenza B and RSV nucleic acids in clinical specimens. SARS-CoV-2, influenza A, influenza B and RSV RNA identified by this test are generally detectable in upper respiratory samples during the acute phase of infection. Positive results are Indicative of the presence of the identified virus, but do not rule out bacterial infection or co-infection with other pathogens not detected by this test. Clinical correlation with patient history and other diagnostic information is necessary to determine patient infection status. The agent detected may not be the definite cause of disease. Negative results do not preclude SARS-CoV-2, influenza A, influenza B and RSV infection and should not be used as the sole basis for treatment or other patient management decisions. Negative results must be combined with clinical observations, patient history and epidemiological information. An Invalid result may occur with specimen-associated inhibition unable to be resolved with specimen repeat.Fact Sheet for Healthcare Providers:https://www.fda.gov/media/027515/downloadFact Sheet for Patients:https://www.fda.gov/media/985442/download Performed By: #### C BCA #### [facility] ([facility]) [address] [place] [address]. [place] [address] VIR Ambulatory Visit Summaryon 0 11-16-2024 Ambulatory Visit Summary Ambulatory Visit Summary RIOS BARTLETT :1965 Visit Date:11/16/2024 Ambulatory Visit Instructions Your Diagnosis Prostate cancer screening Your Care Team Attending Physician - MARNIE YOUSSEF PA-C Primary Care Physician - Mary Coronado MD Referring Physician - Mary Coronado MD This Is Your Medications List dutasteride (dutasteride 0.5 mg Cap) tamsulosin (tamsulosin 0.4 mg Cap) Procedures Performed Exploration (08/27/2021), Uvulopalatopharyngoplasty (2019), L knee synovectomy, poly exchange, quad plasty complicated by obesity (10/06/2016), ACDF 5-7, Colonoscopy, Gastric sleeve, History of revision of left total knee arthroplasty, [place] - Local anesthetic nerve block in lower limb, left knee arthroscopy, left total knee arthroplasty, Lumbar spinal fusion, Nasal septoplasty, Testicular torsion, Tonsillectomy and adenoidectomy. Discharge Vitals Temperature (Oral) 36.5 ???C Heart Rate (Peripheral) 74 Respiratory Rate 18 Blood Pressure 140/86 Height 176 cm Height 69 in Weight 151.9 kg Weight 334.882 lb BMI 49.04 Medications What How Much When Instructions Unchanged dutasteride (dutasteride 0.5 mg Cap) 1 Capsules Unchanged tamsulosin (tamsulosin 0.4 mg Cap) 1 Capsules By Mouth Every day Allergies morphine (Itching) Problems Ongoing - Any problem that you are currently receiving treatment for. Abdominal hernia Anxiety Arthritis BMI 40.0-44.9, adult Brachial neuritis Cervical spondylosis Claustrophobia Deviated nasal septum Elevated blood pressure reading without diagnosis of hypertension Gout History of nephrolithiasis Hypertrophy of nasal turbinates Kidney disease Kidney stone Lipoma of back Lumbar herniated disc Migraine headache Morbid obesity Morbid obesity with BMI of 45.0-49.9, adult Neuropathy PATTI (obstructive sleep apnea) Prostate cancer screening Severe major depressive disorder Skin tags, multiple acquired Patient Survey You may receive a survey via text or e-mail asking about your office visit. Please share your experience with us by completing your survey. We appreciate your feedback and thank you for choosing us for your care. James Villanueva [facility] Urology Office/Clinic Noteon 11-16-2024 Urology Office/Clinic Note Urology Office/Clinic Note Chief Complaint Difficulty urinating HPI Staff New pt referred by Dr. Coronado. Never seen in our office before (verified on [employer]). Aug 2024 saw PCP for pain in groin, back, urinary frequency per referral note. Started on Cefdinir x10d (POC UA showed trace hgb only). Today pt states this was not the case. That he never has pain in the groin/prostate and that they only treated him w abx in August due to the blood in the urine. PCP started pt on Flomax in Jul 2024 and filled twice (also took it for a few mos back in 2022). Pt states it changed nothing so he stopped it. PCP started pt on Dutasteride in Sep 2024 and has filled twice. He is continuing this for now. CT AP wo con 09/27/24 TBH shows punctate RUP stone, no evidence of obstruction, no masses or hydro, bladder nl, prostate size nl. Pt's main complaints are difficulty urinating and urinary frequency. Review of Systems PHQ Score Initial Depression Screen Score: 3 SCORE Detailed Depression Screen Score: 20 Total Depression Screen Score: 23 no fever, chills, malaise, myalgia. no rash/lesions. no chest pain, palpitations, or SOB. no abdominal pain, nausea, vomiting. Physical Exam Vitals & Measurements T: 36.5 ???C(Oral) HR: 74(Peripheral) RR: 18 BP: 140/86 HT: 176 cm HT: 69 in WT: 151.9 kg WT: 334.882 lb BMI: 49.04 General: nontoxic, NAD Assessment/Plan Pt did respond affirmatively to the suicidal ideation screening question. I did speak with him about this further. He denies a plan I'm just really stressed from a lot of things right now. I did offer referral to mental health professional but he refuses. I did recommend he at least f/u w PCP, he agrees. 1. Difficulty urinating (R39.198: Other difficulties with micturition) This has been since weight gain 50# since last year. Has buried penis. Unable to grasp it when urinating d/t body habitus so urine just sprays out in unpredictable direction. Sitting down doesn't help. Prior to weight gain this was not an issue. Advised that medications will not fix this. Needs to lose weight. Ordered: E&M of New Patient Moderate 45-59 Min 26511 2. Urinary frequency (R35.0: Frequency of micturition) C/o q1-2 hr daytime frequency. However pt admits to drinking Coke all day every day and states he is unwilling to change this. A1c 5.6 and nl renal fx Aug 2024 UA completed in office today shows no significant microhematuria or signs of infection. PVR low. Advised of bladder irritants and their effect on frequency/urgency. Recommended decreased intake of bladder irritants. Ordered: E&M of New Patient Moderate 45-59 Min 23854 3. Nocturia (R35.1: Nocturia) >5x per night However has other contributing factors for nocturia - RLS, PATTI, chronic pain. Says it is not the urge to void which wakes him, it's the other things. Recommended improved control of RLS/PATTI/pain. Ordered: E&M of New Patient Moderate 45-59 Min 99236 4. Prostate cancer screening (Z12.5: Encounter for screening for malignant neoplasm of prostate) PSA 11/04/22 - 0.48 05/12/24 - 0.67 Low, stable, well within normal range for his age. Can continue monitoring w PCP. Ordered: E&M of New Patient Moderate 45-59 Min 33136 Orders: 23089 Measure Post Void residual urine and/or bladder capacity by US- non-imaging Body Mass Index (BMI) documented 3008F Current tobacco non-user 1036F Depression Screening Negative 3352F Influenza immunization status assessed 1030F Medication list documented in medical record 1159F Most recent diastolic blood pressure 80-89 mm Hg 3079F Most recent systolic blood pressure >= 140 mm Hg 3077F Review of all meds by a prescribing practitioner or clinical pharmacist documented in EHR 1160F Urnls Dip Stick Auto w/o Microscopy POC 25096 Pt will work on lifestyle modifications as noted above. If sx persist despite changes, can re-evaluate. Follow-up With When Contact Information [facility] Additional Instructions: Only if needed/new problems arise. No scheduled appointment indicated at this time. Patient Education Urinary Frequency, Adult Problem List/Past Medical History Ongoing Abdominal hernia Anxiety Arthritis BMI 40.0-44.9, adult Brachial neuritis Cervical spondylosis Claustrophobia Deviated nasal septum Difficulty urinating Elevated blood pressure reading without diagnosis of hypertension Gout History of nephrolithiasis Hypertrophy of nasal turbinates Kidney disease Kidney stone Lipoma of back Lumbar herniated disc Migraine headache Morbid obesity Morbid obesity with BMI of 45.0-49.9, adult Neuropathy Nocturia PATTI (obstructive sleep apnea) Prostate cancer screening Severe major depressive disorder Skin tags, multiple acquired Urinary frequency Historical No qualifying data Procedure/Surgical History Exploration (08/27/2021), Uvulopalatopharyngoplasty (2019), L kne (more content not included)... Normal [facility] Comment on above: Result Comment: Elec tronically Signed By: DOMONIQUE FELIZ, MARNIE Lemon\.br\Date and Time Signed: 11/16/24 14:00 EDT CBC AUTO DIFFon 11-04-2022 BASO # 0.0 103/ul Normal 0.0-0.1 [facility] Comment on above: Performed By: #### T SH, T4, FT3, CMP, LIPID #### [facility] [address] [address] [address] Ayush Rice Basophils/100 WBC (Bld) 0.3 % Normal 0.2-2.0 [facility] Comment on above: Performed By: #### T SH, T4, FT3, CMP, LIPID #### [facility] [address] [address] [address] Ayush Rice EO # 0.2 103/ul Normal 0.0-0.7 [facility] Comment on above: Performed By: #### T SH, T4, FT3, CMP, LIPID #### [facility] [address] [address] [address] Ayush Rice Eosinophils/100 WBC (Bld) 1.5 % Normal 0.9-7.0 [facility] Comment on above: Performed By: #### T SH, T4, FT3, CMP, LIPID #### [facility] [address] [address] [address] Ayush Rice Erythrocyte distribution width (RBC) [Ratio] 14.2 % Normal 11.0-15.0 [facility] Comment on above: Performed By: #### T SH, T4, FT3, CMP, LIPID #### [facility] [address] [place] [address] Dr. Ayush Rice Hematocrit (Bld) [Volume fraction] 49.3 % Normal 42.0-54.0 [facility] Comment on above: Performed By: #### T SH, T4, FT3, CMP, LIPID #### [facility] [address] [place] [address] Dr. Ayush Rice Hemoglobin (Bld) [Mass/Vol] 16.2 g/dL Normal 14.0-18.0 [facility] Comment on above: Performed By: #### T SH, T4, FT3, CMP, LIPID #### [facility] [address] [place] [address] Dr. Ayush Rice IG # 0.03 10e3/ul Normal 0.00-0.03 [facility] Comment on above: Performed By: #### T SH, T4, FT3, CMP, LIPID #### [facility] [address] [place] [address] Dr. Ayush Rice IG % 0.3 % Normal 0.0-0.5 [facility] Comment on above: Performed By: #### T SH, T4, FT3, CMP, LIPID #### [facility] [address] [place] [address] Dr. Ayush Rice LYMPH # 2.6 103/ul Normal 1.2-3.8 [facility] Comment on above: Performed By: #### T SH, T4, FT3, CMP, LIPID #### [facility] [address] [place] [address] Dr. Ayush Rice Lymphocytes/100 WBC (Bld) 24.9 % Normal 20.5-60.0 [facility] Comment on above: Performed By: #### T SH, T4, FT3, CMP, LIPID #### [facility] [address] [place] [address] Dr. Ayush Rice MANUAL DIFF REQ NO Normal [facility] Comment on above: Performed By: #### T SH, T4, FT3, CMP, LIPID #### [facility] [address] [place] [address] Dr. Ayush Rice MCH (RBC) [Entitic mass] 30.1 pg Normal 25.9-34.0 [facility] Comment on above: Performed By: #### T SH, T4, FT3, CMP, LIPID #### [facility] [address] [place] [address] Dr. Ayush Rice MCHC (RBC) [Mass/Vol] 32.9 g/dL Normal 29.9-35.2 [facility] Comment on above: Performed By: #### T SH, T4, FT3, CMP, LIPID #### [facility] [address] [place] [address] Dr. Ayush Rice MCV (RBC) [Entitic vol] 91.5 fL Normal 80.0-94.0 [facility] Comment on above: Performed By: #### T SH, T4, FT3, CMP, LIPID #### [facility] [address] [place] [address] Dr. Ayush Rice MONO # 0.8 103/ul Normal 0.3-0.8 [facility] Comment on above: Performed By: #### T SH, T4, FT3, CMP, LIPID #### [facility] [address] [place] [address] Dr. Ayush Rice Monocytes/100 WBC (Bld) 7.4 % Normal 1.7-12.0 [facility] Comment on above: Performed By: #### T SH, T4, FT3, CMP, LIPID #### [facility] [address] [place] [address] Dr. Ayush Rice NEUT # 7.0 103/ul Critically high 1.4-6.5 [facility] Comment on above: Performed By: #### T SH, T4, FT3, CMP, LIPID #### [facility] [address] [place] [address] Dr. Ayush Rice Neutrophils/100 WBC (Bld) 65.6 % Normal 43.0-75.0 [facility] Comment on above: Performed By: #### T SH, T4, FT3, CMP, LIPID #### [facility] [address] [place] [address] Dr. Ayush Rice Platelet mean volume (Bld) [Entitic vol] 8.5 fL Critically low 9.5-13.5 [facility] Comment on above: Performed By: #### T SH, T4, FT3, CMP, LIPID #### [facility] [address] [address] [address] Ayush Rice PLT 232 103/ul Normal 150-450 [facility] Comment on above: Performed By: #### T SH, T4, FT3, CMP, LIPID #### [facility] [address] [place] [address] Dr. Ayush Rice RBC 5.39 106/ul Normal 4.70-6.10 [facility] Comment on above: Performed By: #### T SH, T4, FT3, CMP, LIPID #### [facility] [address] [place] [address] Dr. Ayush Rice WBC 10.6 103/ul Normal 4.0-11.0 [facility] Comment on above: Performed By: #### T SH, T4, FT3, CMP, LIPID #### [facility] [address] [place] [address] Dr. Ayush Rice FREE T3on 11-04-2022 FREE T3 2.93 pg/mlL Normal 2.18-3.98 [facility] Comment on above: Performed By: #### T SH, T4, FT3, CMP, LIPID #### [facility] [address] [place] [address] Dr. Ayush Rice GLYCOHEMOGLOBIN A1Con 2022 ADA RECOMMENDATION SEE BELOW Normal [facility] Comment on above: Result Comment: ADA RECOMMENDED LIMIT 4.0 - 6.0 ADA THERAPEUTIC TARGET < 7.0 ACTION SUGGESTED > 7.0 Performed By: #### A 1C #### [facility] [address] [place] [address] Dr. Ayush Rice Glucose [Mass/Vol] 126 mg/dL Normal [facility] Comment on above: Performed By: #### A 1C #### [facility] [address] [address] [address] Ayush Rice HbA1c (Bld) [Mass fraction] 6.0 % Normal 4.5-6.2 [facility] Comment on above: Performed By: #### A 1C #### [facility] [address] [address] [address] Ayush Rice LIPID PROFILEon 11-04-2022 CHOL-HDL RATIO NORM SEE BELOW Normal [facility] Comment on above: Result Comment: 3.3 - 4.4 LOW RISK 4.4 - 7.1 AVERAGE RISK 7.1 - 11.0 MODERATE RISK >11.0 HIGH RISK Performed By: #### T SH, T4, FT3, CMP, LIPID #### [facility] [address] [address] [address] Ayush Rice Cholesterol [Mass/Vol] 190 mg/dL Normal <=200 [facility] Comment on above: Performed By: #### T SH, T4, FT3, CMP, LIPID #### [facility] [address] [address] [address] Ayush Rice Cholesterol in HDL [Mass/Vol] 39 mg/dL Critically low 40-60 [facility] Comment on above: Performed By: #### T SH, T4, FT3, CMP, LIPID #### [facility] [address] [address] [address] Ayush Rice Cholesterol in LDL [Mass/Vol] 122.0 mg/dL Normal [facility] Comment on above: Performed By: #### T SH, T4, FT3, CMP, LIPID #### [facility] [address] [address] [address] Ayush Rice Cholesterol.total/ Cholesterol in HDL [Mass ratio] 4.9 {ratio} Normal [facility] Comment on above: Performed By: #### T SH, T4, FT3, CMP, LIPID #### [facility] [address] [address] [address] Ayush Rice HDL NORMAL > or = 60 mg/dl - LO W CARDIOVASCULAR RISK <40 mg/dl - HIGH CARDIOVASCULAR RISK Normal [facility] Comment on above: Performed By: #### T SH, T4, FT3, CMP, LIPID #### [facility] [address] [address] [address] Ayush Rice LDL CALC NORMAL SEE BELOW Normal [facility] Comment on above: Result Comment: <100 mg/dl OPTIMAL 100 - 129 mg/dl NEAR OR ABOVE OPTIMAL 130 - 159 mg/dl BORDERLINE HIGH 160 - 189 mg/dl HIGH >190 mg/dl VERY HIGH Performed By: #### T SH, T4, FT3, CMP, LIPID #### [facility] [address] [address] [address] Ayush Rice Triglyceride [Mass/Vol] 145 mg/dL Normal <=150 [facility] Comment on above: Performed By: #### T SH, T4, FT3, CMP, LIPID #### [facility] [address] [address] [address] Ayush Rice VLDL CALC 29.0 mg/dL Normal [facility] Comment on above: Performed By: #### T SH, T4, FT3, CMP, LIPID #### [facility] [address] [address] [address] Ayush Rice PROF 14(COMP METB)on 023 Albumin [Mass/Vol] 3.8 g/dL Normal 3.4-5.0 [facility] Comment on above: Performed By: #### T SH, T4, FT3, CMP, LIPID #### [facility] [address] [address] [address] Ayush Rice Albumin/Globulin [Mass ratio] 1.1 {ratio} Normal [facility] Comment on above: Performed By: #### T SH, T4, FT3, CMP, LIPID #### [facility] [address] [address] [address] Ayush Rice ALP [Catalytic activity/Vol] 103 U/L Normal 46-116 [facility] Comment on above: Performed By: #### T SH, T4, FT3, CMP, LIPID #### [facility] [address] [address] [address] Ayush Rice ALT [Catalytic activity/Vol] 40 U/L Normal 16-63 [facility] Comment on above: Performed By: #### T SH, T4, FT3, CMP, LIPID #### [facility] [address] [place] [address] Dr. Ayush Rice Anion gap [Moles/Vol] 12.4 mmol/L Normal [facility] Comment on above: Performed By: #### T SH, T4, FT3, CMP, LIPID #### [facility] [address] [place] [address] Dr. Ayush Rice AST [Catalytic activity/Vol] 28 U/L Normal 15-37 [facility] Comment on above: Performed By: #### T SH, T4, FT3, CMP, LIPID #### [facility] [address] [place] [address] Dr. Ayush Rice Bilirubin [Mass/Vol] 0.9 mg/dL Normal 0.2-1.0 [facility] Comment on above: Performed By: #### T SH, T4, FT3, CMP, LIPID #### [facility] [address] [place] [address] Dr. Ayush Rice Calcium [Mass/Vol] 9.1 mg/dL Normal 8.5-10.1 [facility] Comment on above: Performed By: #### T SH, T4, FT3, CMP, LIPID #### [facility] [address] [place] [address] Dr. Ayush Rice Chloride [Moles/Vol] 107 mmol/L Normal 98-107 [facility] Comment on above: Performed By: #### T SH, T4, FT3, CMP, LIPID #### [facility] [address] [place] [address] Dr. Ayush Rice CO2 [Moles/Vol] 27.9 mmol/L Normal 21.0-32.0 [facility] Comment on above: Performed By: #### T SH, T4, FT3, CMP, LIPID #### [facility] [address] [place] [address] Dr. Ayush Rice Creatinine [Mass/Vol] 1.18 mg/dL Normal 0.70-1.30 [facility] Comment on above: Performed By: #### T SH, T4, FT3, CMP, LIPID #### [facility] [address] [address] [address] Ayush Rice EGFR-AF CUBAN >60 Normal >=60 [facility] Comment on above: Performed By: #### T SH, T4, FT3, CMP, LIPID #### [facility] [address] [address] [address] Ayush Rice EGFR-NON AF CUBAN >60 Normal >=60 [facility] Comment on above: Performed By: #### T SH, T4, FT3, CMP, LIPID #### [facility] [address] [place] [address] Dr. Ayush Rice Globulin (S) [Mass/Vol] 3.4 g/dL Normal [facility] Comment on above: Performed By: #### T SH, T4, FT3, CMP, LIPID #### [facility] [address] [place] [address] Dr. Ayush Rice Glucose [Mass/Vol] 106 mg/dL Normal 74-106 [facility] Comment on above: Performed By: #### T SH, T4, FT3, CMP, LIPID #### [facility] [address] [place] [address] Dr. Ayush Rice Potassium [Moles/Vol] 4.3 mmol/L Normal 3.5-5.1 [facility] Comment on above: Performed By: #### T SH, T4, FT3, CMP, LIPID #### [facility] [address] [place] [address] Dr. Ayush Rice Protein [Mass/Vol] 7.2 g/dL Normal 6.4-8.2 [facility] Comment on above: Performed By: #### T SH, T4, FT3, CMP, LIPID #### [facility] [address] [place] [address] Dr. Ayush Rice Sodium [Moles/Vol] 143 mmol/L Normal 136-145 [facility] Comment on above: Performed By: #### T SH, T4, FT3, CMP, LIPID #### [facility] [address] [place] [address] Dr. Ayush Rice Urea nitrogen [Mass/Vol] 15.0 mg/dL Normal 7.0-18.0 [facility] Comment on above: Performed By: #### T SH, T4, FT3, CMP, LIPID #### [facility] [address] [place] [address] Dr. Ayush Rice Urea nitrogen/Creatinin e [Mass ratio] 12.7 mg/mg Normal [facility] Comment on above: Performed By: #### T SH, T4, FT3, CMP, LIPID #### [facility] [address] [place] [address] Dr. Ayush Rice T4on 11-04-2022 T4 [Mass/Vol] 7.30 ug/dL Normal 4.50-12.10 [facility] Comment on above: Performed By: #### T SH, T4, FT3, CMP, LIPID #### [facility] [address] [place] [address] Dr. Ayush Rice TSHon 11-04-2022 TSH 1.301 uIU/mL Normal 0.358-3.740 [facility] Comment on above: Performed By: #### T SH, T4, FT3, CMP, LIPID #### [facility] [address] [place] [address] Dr. Ayush Rice VITAMIN D 25 OHon 11-04-2022 VIT D 25-OH 20.0 ng/mL Normal [facility] Comment on above: Performed By: #### T SH, T4, FT3, CMP, LIPID #### [facility] [address] [place] [address] Dr. Ayush Rice VIT D RANGES SEE BELOW Normal [facility] Comment on above: Result Comment: <20 ng/mL Vit D deficient 20 - <30 ng/mL Vit D insufficient 30 - 100 ng/mL Vit D sufficient >100 ng/mL Potential Toxicity Performed By: #### T SH, T4, FT3, CMP, LIPID #### [facility] [address] [address] [address] Ayush Rice ECHOCARDIO M/2D COMPLETEon 0 08-03-2022 ECHOCARDIO M/2D COMPLETE Patient: RIOS BARTLETT Exam Date: 08/03/2022 : 1965 Gender:M Ordering : DR MARY CORONADO . Admission #: [id number] Family : Order #: [id number] CLICK HERE TO VIEW EXAM ECHOCARDIOGRAM REPORT [...] Ma M.D. on 08/04/2022 at 19:15 Normal [facility] NM STRESS/REST MULTIon 08-03 NM STRESS/REST MULTI Patient: RIOS BARTLETT Exam Date: 08/03/2022 : 1965 Gender:M Ordering : DR MARY CORONADO . Admission #: [id number] Family : Order #: [id number] CLICK HERE TO VIEW EXAM RADIOLOGY REPORT [...] Marie MD on 08/10/2022 at 13:50 Normal [facility] XR CHEST 2 Von 07-30-2022 XR [...] by: OLIVIA BECKER Date: 2022-07-30 17:15 Normal [facility] XR KNEE LT 4V or >on [...] by: OLIVIA BECKER Date: 2022-07-30 17:16 Normal [facility] Office Visiton 03-27-2022 Follow-up visit [id number] Alexis Bartlett 1965 M Date Provider Department Center 03/27/2022 Lora-CHEIKH GALARZA MP ORTHO MPORTHO No family history on file Level of Service:84661 [facility] POSTOP FOLLOW UP VISIT RELATED TO ORIGINAL PX Reason for Visit and Comments: Pain [136] Normal [facility] 36on 03-18-2022 36 Pt was informed and verbalized understanding. Normal [facility] 36on 03-17-2022 36 Pt is complaining he is having a hard time with pain control. Most of the reported pain is in both of his legs and described as burning pain. Pt would like to know if there is anything else that can be prescribed along with the oxycodone he is currently taking? Please advise. Normal [facility] BASIC METABOLIC PANELon 02-26 Anion gap [Moles/Vol] 5 mmol/L Normal <=30 [facility] Comment on above: Performed By: #### L AB15 #### [facility] ([facility]) [address] [place] [address] Calcium [Mass/Vol] 8.5 mg/dL Low 8.6-10.3 [facility] Comment on above: Performed By: #### L AB15 #### [facility] [address] [place] [address] Chloride [Moles/Vol] 102 mmol/L Normal 98-107 [facility] Comment on above: Performed By: #### L AB15 #### [facility] ([facility]) [address] [place] [address] CO2 [Moles/Vol] 31 mmol/L Normal 21-31 [facility] Comment on above: Performed By: #### L AB15 #### [facility] [address] [place] [address] Creatinine [Mass/Vol] 0.96 mg/dL Normal 0.70-1.30 [facility] Comment on above: Performed By: #### L AB15 #### [facility] ([facility]) [address] [place] [address] GLOMERULAR FILTRATION RATE ML/MIN/1.73 SQ M.PREDICTED 88.6 mL/min/1.73m*2 Normal >60.0 [facility] Comment on above: Result Comment: [facility]???s estimated glomerular filtration rate (eGFR) will no [...] individuals. Performed By: #### L AB15 #### [facility] ([facility]) [address] [place] [address] Glucose [Mass/Vol] 112 mg/dL High 70-100 [facility] Comment on above: Performed By: #### L AB15 #### [facility] ([facility]) [address] [place] [address] Potassium [Moles/Vol] 4.7 mmol/L Normal 3.5-5.1 [facility] Comment on above: Performed By: #### L AB15 #### [facility] ([facility]) [address] [place] [address] Sodium [Moles/Vol] 138 mmol/L Normal 136-145 [facility] Comment on above: Performed By: #### L AB15 #### [facility] ([facility]) [address] [place] [address] Urea nitrogen [Mass/Vol] 16 mg/dL Normal 7-25 [facility] Comment on above: Performed By: #### L AB15 #### [facility] ([facility]) [address] [place] [address] UREA NITROGEN/CREATININ E (MASS RATIO) IN SER/PLAS 16.67 Normal [facility] Comment on above: Performed By: #### L AB15 #### [facility] ([facility]) [address] [place] [address] CBCon 03-14-2022 Erythrocyte distribution width (RBC) [Ratio] 13.8 % Normal 11.5-15.0 [facility] [facility] Comment on above: Performed By: #### L [id number] #### [facility] [address] [place] [address] ERYTHROCYTE MEAN CORPUSCULAR HEMOGLOBIN CONCENTRATION (G/DL) BY AUTOMATED 33.2 g/dL Normal 32.0-35.0 [facility] Comment on above: Performed By: #### L [id number] #### [facility] ([facility]) [address] [place] [address] Hematocrit (Bld) [Volume fraction] 43.1 % Normal 39.0-55.0 [facility] Comment on above: Performed By: #### L [id number] #### [facility] ([facility]) [address] [place] [address] Hemoglobin (Bld) [Mass/Vol] 14.3 g/dL Normal 13.0-17.0 [facility] Comment on above: Performed By: #### L [id number] #### [facility] ([facility]) [address] [place] [address] MCH (RBC) [Entitic mass] 30.4 pg Normal 27.0-33.0 [facility] Comment on above: Performed By: #### L [id number] #### [facility] ([facility]) [address] [place] [address] MCV (RBC) [Entitic vol] 91.7 fL Normal 82.0-98.0 [facility] Comment on above: Performed By: #### L [id number] #### [facility] ([facility]) [address] [place] [address] PLATELETS (10*3/UL) IN BLOOD AUTOMATED COUNT 203 10*3/uL Normal 150-400 [facility] Comment on above: Performed By: #### L [id number] #### [facility] [address] [place] [address] RBC (Bld) [#/Vol] 4.70 10*6/uL Normal 4.20-5.70 [facility] Comment on above: Performed By: #### L [id number] #### [facility] ([facility]) [address] [place] [address] WBC (Bld) [#/Vol] 15.55 10*3/uL High 4.00-10.60 [facility] Comment on above: Performed By: #### L [id number] #### [facility] ([facility]) [address] [place] [address] Letter (Out)on 03-14-2022 Letter (Out) [id number] Alexis Bartlett tt 1965 M Date Provider Department Center 03/14/2022 [id number], GENERIC PRO*INIT None No family history on file Normal [facility] POCT GLUCOSE METER UNSOLICIT ED RESULTSon 03-14-2022 Glucose [Mass/Vol] 119 mg/dL High 70-105 [facility] Comment on above: Result Comment: jmat analilia Performed By: #### L [id number] ####[facility] ([facility])[address] [place] [address] Glucose [Mass/Vol] 123 mg/dL High 70-105 [facility] Comment on above: Result Comment: rsha w2 Performed By: #### L [id number] ####[facility] ([facility])[address] [place] [address] HPon 03-13-2022 HP History Of Present I [...] procedure: 1. L4-L5 posterior lumbar spine decompression (33890). 2. L4-L5 transforaminal lumbar interbody fusion using autograft, crushed cancellous allograft, and machine threaded bone dowel spacer ; and posterolateral fusion using autograft, crushed cancellous allograft (21201, 47010). 3. L4-L5 posterior spinal instrumentation using USS system from [employer] (18491). 4. Local bone autograft harvesting as well as use of crushed cancellous allograft (06603, 33414). 5. Use of intraoperative fluoroscopy (04016). Planned procedure date: 03/13/22 Discussed proposed procedure [...] at the same or adjacent level. Normal [facility] NURSNOTEon 03-13-2022 NURSNOTE FAMILY UPDATES XIONG D TO WR, NO FAMILY NEEDS AT THIS TIME. Normal [facility] OPNOTEon 03-13-2022 OPNOTE L4-L5 DECOMPRESSION WITH INTERBODY FUSION (L) Operative Note Date: 03/13/2022 Location: [facility] OR Name: Rios Bartlett, : 1965, Surgeons: Cheikh Galarza - Primary Trail Maintenance Worker: Ambrosio Zavaleta M.D. 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 Operation: 1. L4-L5 posterior lumbar spine decompression (76630). 2. L4-L5 transforaminal lumbar interbody fusion using autograft, crushed cancellous allograft, [employer] and machine threaded bone dowel spacer 11 mm; and posterolateral fusion using autograft, crushed cancellous allograft and [employer] (78867, 45824). 3. L4-L5 posterior spinal instrumentation using USS system from [employer] (56863). 4. Local bone autograft harvesting as well as use of crushed cancellous allograft (30331, 19752). 5. Use of intraoperative fluoroscopy (29678). 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 Procedure Summary Anesthesia: General ASA: III Position: Prone position on the Kamaljit table in reverse Trendelenburg position. Estimated Blood Loss: 200 mL Total IV Fluids: 1300 mL Drains: Hemovac Urethral Catheter Non-latex;Other (Comment) 16 Fr. (Active) Implants Type Name Action Serial No. Bone TISS BONE,CANC,CHIPS,PRES,60CC - [id number] - [id number] Implanted [id number] Allograft Tissue TISSUE VIVIGEN, 10 - [id number] - [id number] Implanted [id number] Allograft Tissue TISSUE VIVIGEN, 10 - [id number] - [id number] Implanted [id number] Bone TISS ALLOGRAFT,TP11MM,6X1X2.5 - [id number] - [id number] Implanted [id number] Screw SCREW,SIDE-OPEN,7.0M,50MM - [id number] Implanted Clamp COLLAR,TI,GROOVES - [id number] Implanted Nut TI-NUT,11M-WIDTH,ACROSS-FLAT S - [id number] Implanted Pin HILDA,6.0M,TI-HARD,50M - [id number] Implanted Staff: Tool Inspector: Freya Loja, ROGELIO Scrub Person: Tabatha German, [facility] [employer] Scrub: Josie English Complications: None. Counts: [...] has been seen in preoperative clinic at [facility]. Procedure: The patient was taken to [...] anterior co (more content not included)... Normal [facility] POCT GLUCOSE METER UNSOLICIT ED RESULTSon 03-13-2022 Glucose [Mass/Vol] 166 mg/dL High 70-105 [facility] Comment on above: Result Comment: iede ldu Performed By: #### L [id number] #### [facility] ([facility]) [address] [place] [address] Glucose [Mass/Vol] 98 mg/dL Normal 70-105 [facility] Comment on above: Result Comment: epaw low Performed By: #### L [id number] #### [facility] ([facility]) [address] [place] [address] VITAMIN D 25 HYDROXYon 03-13 CALCIDIOL (25 [place] VITAMIN D3) (NG/ML) IN SER/PLAS 26.0 ng/mL Low 30.0-80.0 [facility] Comment on above: Result Comment: >80. 0 Toxicity possible Performed By: #### L [id number] #### [facility] ([facility]) [address] [place] [address] Orders Onlyon 03-10-2022 Orders Only [id number] Alexis Bartlett tt 1965 M Date Provider Department Center 03/10/20221975-JL [facility] Medical C No family history on file Normal [facility] SARS-COV-2 TMAon 03-10-2022 SARS-CoV-2 (COVID-19) RNA WADE+probe Ql (Unsp spec) Not detected Normal Not Detected [facility] Comment on above: Result Comment: Not [...] from SARS-CoV-2 isolated and purified from nasopharyngeal (TAX PROCESSOR), oropharyngeal (OP), nasal swab, sputum, and bronchoalveolar lavage (BAL) specimens from patients with signs and symptoms of infection who are suspected of COVID-19. Results are for the identification of SARS-CoV-2 RNA. The SARS-CoV-2 RNA is generally detectable during the acute phase of infection. The Aptima SARS-CoV-2 Assay on the [employer] system is intended for use by laboratory personnel specifically instructed and trained in the operation of the [place] and [employer] Fusion system. The Aptima SARS-CoV-2 assay is only for use under the Food and Drug Administration Emergency Use Authorization. Testing is limited to laboratories certified under the Clinical Laboratory Improvement Amendments of 1988 (CLIA), 42 U.S.C. ???263a, to perform high complexity tests. Performed By: #### L [id number] #### [facility] ([facility]) [address] [place] [address] Orders Onlyon 03-09-2022 Orders Only [id number] Alexis Bartlett tt 1965 M Date Provider Department Center 03/09/2022 FREYA GUAMAN [facility] No family history on file Normal [facility] *MRSA/MSSA DNA NASALon 03-04 *MRSA/MSSA DNA NASAL Clinical Report: (D) Specimen: NASAL SWAB Collected: 03/04/2022 12:14 Status: Final Last Updated: 03/04/2022 21:39 MSSA DNA (Final) Methicillin Susceptible Staphylococcus aureus DNA Detected MRSA DNA (Final) Negative Normal [facility] Comment on above: Performed By: #### 3 1595 #### [facility] [address] [place] [address], [facility] APTTon 03-04-2022 aPTT Coag (Bld) [Time] 26.7 s Normal 25.0-35.0 [facility] Comment on above: Result Comment: [...] THIS PURPOSE. Performed By: #### 5 7307, 25767 #### [facility] [address] [place] [address], [facility] BASIC METABOLIC PANELon 09-0 -2021 Calcium [Mass/Vol] 8.9 mg/dL Normal 8.6-10.3 [facility] Comment on above: Performed By: #### 0 0071 #### [facility] [address] [place] [address], [facility] Chloride [Moles/Vol] 105 mmol/L Normal 98-107 [facility] Comment on above: Performed By: #### 0 0071 #### [facility] [address] [place] [address], [facility] CO2 [Moles/Vol] 26 mmol/L Normal 21-31 [facility] Comment on above: Performed By: #### 0 0071 #### [facility] [address] [place] [address], [facility] Creatinine [Mass/Vol] 1.00 mg/dL Normal 0.70-1.30 [facility] Comment on above: Performed By: #### 0 0071 #### [facility] [address] [place] [address], [facility] GFR/1.73 sq M.predicted among non-blacks MDRD (S/P/Bld) [Vol rate/Area] mL/min/{1.73_m2} Normal >60 [facility] Comment on above: Result Comment: [facility]'s estimated glomerular filtration rate (eGFR) will [...] individuals. Performed By: #### 0 0071 #### [facility] [address] [facility]. [address] Glucose [Mass/Vol] 95 mg/dL Normal 70-100 [facility] Comment on above: Performed By: #### 0 0071 #### [facility] [address] Potassium [Moles/Vol] 4.9 mmol/L Normal 3.5-5.1 [facility] Comment on above: Performed By: #### 0 0071 #### [facility] [address] [facility]. [address] Sodium [Moles/Vol] 138 mmol/L Normal 136-145 [facility] Comment on above: Performed By: #### 0 0071 #### [facility] [address] Urea nitrogen [Mass/Vol] 15 mg/dL Normal 7-25 [facility] Comment on above: Performed By: #### 0 0071 #### [facility] [address] [place] [address], [facility] CBC W/DIFFon 03-04-2022 ABS IMM GRANS 0.0 10*3/uL Normal 0.0-0.2 [facility] Comment on above: Performed By: #### 5 3 #### [facility] [address] [place] [address], [facility] ABS NEUTROPHILS 6.7 10*3/uL Normal 1.6-7.6 [facility] Comment on above: Performed By: #### 5 3 #### [facility] [address] [place] [address], [facility] Basophils (Bld) [#/Vol] 0.0 10*3/uL Normal 0.0-0.2 [facility] Comment on above: Performed By: #### 5 0103 #### [facility] [address] [place] [address], [facility] Basophils/100 WBC (Bld) 0.4 % Normal 0.0-1.0 [facility] Comment on above: Performed By: #### 5 0103 #### [facility] [address] [place] [address], [facility] Eosinophils (Bld) [#/Vol] 0.2 10*3/uL Normal 0.0-0.5 [facility] Comment on above: Performed By: #### 5 0103 #### [facility] [address] [place] [address], [facility] Eosinophils/100 WBC (Bld) 2.0 % Normal 0.0-6.0 [facility] Comment on above: Performed By: #### 5 0103 #### [facility] [address] [facility]. [address] Erythrocyte distribution width (RBC) [Ratio] 13.8 % Normal 11.5-15.0 [facility] Comment on above: Performed By: #### 5 0103 #### [facility] [address] [facility] [place] [address], [facility] Hematocrit (Bld) [Volume fraction] 48.0 % Normal 39.0-50.0 [facility] Comment on above: Performed By: #### 5 0103 #### [facility] [address] [facility] [place] [place] [address], [facility] Hemoglobin (Bld) [Mass/Vol] 15.9 g/dL Normal 13.0-17.0 [facility] Comment on above: Performed By: #### 5 0103 #### [facility] [address] [place] [address], [facility] IMMATURE GRANS 0.3 % Normal 0.0-1.0 [facility] Comment on above: Performed By: #### 5 0103 #### [facility] [address] [facility] [place] [address], [facility] Lymphocytes (Bld) [#/Vol] 3.3 10*3/uL Normal 1.2-4.0 [facility] Comment on above: Performed By: #### 5 0103 #### [facility] [address] [facility] [place] [address], [facility] Lymphocytes/100 WBC (Bld) 29.7 % Normal 20.0-45.0 [facility] Comment on above: Performed By: #### 5 3 #### [facility] [address] [place] [address], [facility] MCH (RBC) [Entitic mass] 29.8 pg Normal 27.0-33.0 [facility] Comment on above: Performed By: #### 5 3 #### [facility] [address] MCHC (RBC) [Mass/Vol] 33.1 g/dL Normal 32.0-35.0 [facility] Comment on above: Performed By: #### 5 3 #### [facility] [address] [place] [address], [facility] MCV (RBC) [Entitic vol] 90.1 fL Normal 82.0-98.0 [facility] Comment on above: Performed By: #### 5 3 #### [facility] [address] [place] [address], [facility] Monocytes (Bld) [#/Vol] 0.8 10*3/uL Normal 0.1-1.0 [facility] Comment on above: Performed By: #### 102 #### [facility] [address] [place] [place] [address], [facility] MONOS 7.4 % Normal 5.0-12.0 [facility] Comment on above: Performed By: #### 5 0103 #### [facility] [address] [place] [address], [facility] Neutrophils/100 WBC (Bld) 60.2 % Normal 40.0-72.0 [facility] Comment on above: Performed By: #### 5 0103 #### [facility] [address] [facility] [place] [address], [facility] Nucleated RBC/100 WBC (Bld) [Ratio] 0 % Normal 0-0 [facility] Comment on above: Performed By: #### 5 0103 #### [facility] [address] [place] [address], [facility] PLAT CNT 197 10*3/uL Normal 150-400 [facility] Comment on above: Performed By: #### 5 0103 #### [facility] [address] [place] [address], [facility] RBC (Bld) [#/Vol] 5.33 10*6/uL Normal 4.20-5.70 [facility] Comment on above: Performed By: #### 5 0103 #### [facility] [address] [place] [address], [facility] WBC (Bld) [#/Vol] 11.07 10*3/uL High 4.00-10.60 [facility] Comment on above: Performed By: #### 5 0103 #### [facility] [address] PROTHROMBIN TIMEon 2 INR Coag (PPP) [Relative time] 0.97 {INR} Normal 0.91-1.16 [facility] Comment on above: Result Comment: [facility] P RECOMMENDED INR FOR WARFARIN THERAPY ----- [...] CHEST 1995;108:231S-246S. Performed By: #### 5 7307, 19535 #### [facility] [address] [facility] [place] [address], [facility] PT Coag (PPP) [Time] 12.9 s Normal 12.3-14.8 [facility] Comment on above: Result Comment: ALL RESULTS MUST BE INTERPRETED WITH RESPECT TO BLOOD DRAWING ARTIFACT OR DILUTION ERROR OF ANTICOAGULANT AT THE TIME OF SAMPLING. Performed By: #### 5 7307, 49468 #### [facility] [address] [facility] [place] [place] [address], [facility] TYPE AND CROSSMATCHon 2021 ABO INTERPRETATION A Normal [facility] Comment on above: Performed By: #### 6 2594 #### [facility] [address] [facility] [place] [address], [facility] RH INTERPRETATION Positive Normal [facility] Comment on above: Performed By: #### 6 2594 #### [facility] [address] [facility] [place] [address], [place] TYPE AND SCREENon 03-04-2022 AB SCREEN Negative Normal [facility] Comment on above: Performed By: #### L [id number] #### [facility] ([facility]) [address] [place] [place] [address] ABO group Nom (Bld) A Normal [facility] Comment on above: Performed By: #### L [id number] #### [facility] ([facility]) [address] [place] [address] RH TYPE IN BLOOD Positive Normal [facility] Comment on above: Performed By: #### L [id number] #### [facility] ([facility]) [address] [place] [address] URINALYSISon 03-04-2022 Appearance (U) CLEAR Normal CLEAR [facility] Comment on above: Performed By: #### 1 0008 #### [facility] [address] [place] [address], [place] Bilirubin Ql (U) Negative Normal NEGATIVE [facility] Comment on above: Performed By: #### 1 0008 #### [facility] [address] [place] [address], [place] Color (U) YELLOW Normal YELLOW [facility] Comment on above: Performed By: #### 1 0008 #### [facility] [address] [place] [address], [place] EPIS NONE SEEN Normal FEW,OCC,NON E SEEN [facility] Comment on above: Performed By: #### 1 0008 #### [facility] [address] [place] [address], [place] Glucose Ql (U) Negative Normal NEGATIVE [facility] Comment on above: Performed By: #### 1 0008 #### [facility] [address] [place] [address], [place] Hemoglobin Ql (U) Negative Normal NEGATIVE [facility] Comment on above: Performed By: #### 1 0008 #### [facility] [address] [place] [address], [place] KETONE Negative Normal NEGATIVE [facility] Comment on above: Performed By: #### 1 0008 #### [facility] [address] [place] [address], [place] LEUK OTF Negative Normal NEGATIVE [facility] Comment on above: Performed By: #### 1 0008 #### [facility] [address] MUCUS THREADS OCC Abnormal NONE SEEN [facility] Comment on above: Performed By: #### 1 0008 #### [facility] [address] Nitrite Ql (U) Negative Normal NEGATIVE [facility] Comment on above: Performed By: #### 1 0008 #### [facility] [address] pH (U) 5.5 [pH] Normal 5.0-8.0 [facility] Comment on above: Performed By: #### 1 0008 #### [facility] [address] Protein Ql (U) Negative Normal NEGATIVE [facility] Comment on above: Performed By: #### 1 0008 #### [facility] [address] RBC 0-2 Abnormal NONE SEEN [facility] Comment on above: Performed By: #### 1 0008 #### [facility] [address] SPEC GRAV 1.020 Normal 1.015-1.020 [facility] Comment on above: Performed By: #### 1 0008 #### [facility] [address] WBC UA 0-2 Abnormal NONE SEEN [facility] Comment on above: Performed By: #### 1 0008 #### [facility] [address] MRI LUMBAR SPINE WO CONTRAST on 01-28-2022 MRI LUMBAR SPINE WO CONTRAST [facility] Department of Radiology [address] [place] [address] Patient Name: RIOS BARTLETT : 1965 Sex: M Age: Race: White Pt. Location: Patient Status: O Ordered Date: 01/07/2022 12:25:00 PM Completed Date: 01/28/2022 11:47 AM Requesting Provider: CHEIKH GALARZA Attending Provider: Report Copy To: Signs & [...] No malalignment is identified. Electronically signed: Jairo Spangler. Transcribed by: [email or web address], User Resident: Electronically Signed by: JAIRO SPANGLER @ 01/28/2022 03:00 PM Normal [facility] Comment on above: Order Comment: Evalu [...] developed and its performance characteristic determined by [facility] and validated at [facility]. This test has not been FDA [...] for SARS Antigen by [facility] PERFORMED BY: [place] [address] PATHOLOGIST TRANSPORT ASSISTANT LEONA ALVAREZ M.D. Normal [facility] Comment on above: Performed By: #### S OFNEW, COVID-19 SOHAIL #### [place] [id number] [facility] Sohail Ag Negativeon 11-04-19 Sohail Ag Negative Negative Normal Negative [facility] Comment on above: Result Comment: This is a duplicate Sohail SARS Antigen (HANY) result to be used for statistical tracking purpose only. PERFORMED BY: [place] [id number] PATHOLOGIST TRANSPORT ASSISTANT LEONA ALVAREZ M.D. Performed By: #### S OFNEW, COVID-19 SOHAIL #### [address] [address] [facility] LUMBAR SPINE 2 OR 3 [facility] LUMBAR SPINE 2 OR 3 S [facility] Department of Radiology [address] [place] [id number] Patient Name: RIOS BARTLETT : 1965 Sex: M Age: Race: White Pt. Location: 84 Patient Status: D Ordered Date: 03/21/2021 1:15:00 PM Completed Date: 03/21/2021 01:11 PM Requesting Provider: DARON GOMEZ Attending Provider: TANYA NOVOA Report Copy To: Signs & Symptoms: M54.17 Radiculopathy, lumbosacral region I10 History: [place] Comments: Exam: LUMBAR SPINE 2 OR 3 [...] abnormality. Electronically signed: Laurent Lopez. Transcribed by: [email or web address], User Resident: Electronically Signed by: LAURENT LOPEZ @ 03/22/2021 02:01 PM Normal [facility] XR LUMBAR SPINE (2-3 VIEWS)o n [...] Jermaine Krishnamurthy MD 02/08/21 Final result Normal [facility] XR KNEE LEFT STANDARDon 08- XR KNEE LEFT STANDARD TECHNIQUE: Left knee [...] Jr.igned by:Miles Mishra Jr., MD02/11/17Final result Normal [facility] Vital Signs Date Time Vital Sign Value Performing Clinician Facility 01-17-2025 20:23-0400 Body height 175.[address] 01-17-2025 20:23-0400 Body mass index (BMI) [Ratio] 50.06 kg/m2 [address] 01-17-2025 20:23-0400 Body weight 153.[address] 12-27-2024 10:45-0400 SaO2% (BldA) [Mass fraction] 108 % [facility] Comment on above: Performed By: #### ABG #### [facility] ([facility] [address] [place] [address] VIR 12-26-2024 21:14-0400 SaO2% (BldA) [Mass fraction] 92 % [facility] Comment on above: Performed By: #### ABG #### [facility] ([facility]) [address] [place] [address] VIR 12-16-2022 13:33-0400 Blood Pressure Location Todd GOODWIN [facility] 12-16-2022 13:33-0400 Diastolic blood pressure 66 mm[Hg] Todd GOODWIN [facility] [place] 12-16-2022 13:33-0400 Heart rate 70 /min Todd CALDWELLL [facility] [place] 12-16-2022 13:33-0400 Respiratory rate 18 /min Todd CALDWELLL [facility] [place] 12-16-2022 13:33-0400 Systolic blood pressure 118 mm[Hg] Todd GOODWIN [facility] [place] 02-08-2021 10:49-0400 Body mass index (BMI) [Ratio] 42.33 kg/m2 Mary Coronado MD Work Phone: [employer] Work Phone: 02-08-2021 10:49-0400 Body temperature 98.4 [degF] Mary Coronado MD Work Phone: [employer] Work Phone: 02-08-2021 10:49-0400 Body weight 133.81 kg Mary Coronado MD Work Phone: [employer] Work Phone: 02-08-2021 10:49-0400 Diastolic blood pressure 90 mm[Hg] Mary Coronado MD Work Phone: [employer] Work Phone: 02-08-2021 10:49-0400 Heart rate 92 /min Mray Coronado MD Work Phone: [employer] Work Phone: 02-08-2021 10:49-0400 Respiratory rate 18 /min Mary Coronado MD Work Phone: [employer] Work Phone: 02-08-2021 10:49-0400 SaO2% (BldA) [Mass fraction] 94 % Mary Coronado MD Work Phone: [employer] Work Phone: 02-08-2021 10:49-0400 Systolic blood pressure 119 mm[Hg] Mary Coronado MD Work Phone: [facility] Work Phone: Encounters Encounter Date Encounter Type Care Provider Facility Start: 01-22-2025 End: 01-22-2025 ambulatory DIANE KHAN [facility] Start: 01-18-2025 End: 01-18-2025 Telephone encounter Kiya Dumont MD Work Phone: [facility] Start: 01-17-2025 End: 01-17-2025 Clinical Support Mansoor BROWNOPERATING ENGINEER APPRENTICE Work Phone: [facility] - Sleep Disorders Comment on above: Obstructive sleep ap sree Start: 01-08-2025 End: 01-08-2025 ambulatory [facility] Start: 01-02-2025 End: 01-02-2025 Telephone encounter Alyssa Helm [facility] Physician s Pulmonary/Sleep Medicine Start: 12-28-2024 End: 12-28-2024 Telephone encounter Orders Support User Transcribe [facility] - Sleep Disorders Start: 12-26-2024 End: 12-31-2024 Evaluation and management of inpatient ALEJANDRO U DARIUS [facility] Start: 12-25-2024 End: 12-26-2024 Evaluation and management of inpatient MARY CORONADO [facility] Start: 11-16-2024 End: 11-16-2024 ambulatory TRAY YOUSSEF Facility:[facility] Start: 11-08-2024 ambulatory TRAY YOUSSEF Fac ility:[facility] Start: 08-04-2024 End: 08-04-2024 Telemedicine consultation with patient London David MD Work Phone: Neurology Start: 08-04-2024 End: 08-04-2024 ambulatory London David MD Work Phone: Neurology Comment on above: Snoring (Primary Dx) ; Witnessed episode of apnea; Frequent nocturnal awakening; Nocturia; RLS (restless legs syndrome); Suspected sleep apnea Start: 12-30-2022 End: 12-30-2022 Patient encounter procedure Todd Maher BUDDY [facility] [place] Start: 12-16-2022 End: 12-16-2022 Patient encounter procedure Todd Maher BUDDY [facility] [place] Start: 11-04-2022 End: 11-05-[address] MARY CORONADO . Facility: Start: 08-10-2022 End: 08-11-[address] MARY CORONADO . Facility: Start: 08-03-2022 End: 08-04-[address] MARY CORONADO . Facility: Start: 07-30-2022 End: 07-31-[address] MARY CORONADO . Facility: Start: 03-27-2022 End: 03-27-2022 ambulatory [facility] Start: 03-14-2022 Evaluation and management of inpatient AMBROSIO [facility] Start: 03-13-2022 End: 03-14-2022 Evaluation and management of inpatient [facility] Start: 03-13-2022 End: 03-14-2022 Evaluation and management of inpatient [facility] Start: 03-10-2022 End: 03-10-2022 ambulatory [facility] Start: 01-28-2022 End: 01-29-2022 ambulatory MARY CORONADO Facility:[facility] Start: 02-08-2021 Emergency department patient visit MARY CORONADO [facility] Start: 02-08-2021 End: 08-14-2021 Emergency department patient visit Mary Coronado MD Work Phone: [facility] ED Comment on above: Acute exacerbation o f chronic low back pain (Primary Dx) Start: 02-11-2017 End: 02-12-2017 Ambulatory OLIVIA MURPHY AUSTYN [facility] Procedures Date Procedure Procedure Detail Performing Clinician Start: 11-04-[address] MARY CORONADO . Comment on above: Performed By: #### TSH, T4, FT3, CMP, LI PID #### [facility] [address], [place] [address] Dr. Ayush Rice Start: 03-04-2022 Antibody screen MARY CORONADO Comment on above: Performed By: #### [id number] #### [facility] [address] Start: 08-27-2021 Exploration procedure Todd GOODWIN Comment on above: left mid back Start: 02-08-2021 Radex spine lumbosacral 2/3 views Niall De La Torre CHICK GRADER - OPERATING ENGINEER APPRENTICE Work Phone: Start: 07-01-2020 H/O: surgery S/P UPPP (uvulopalatophary ngoplasty) Orders Transcribe Start: 06-28-2019 Uvulopalatopharyngoplasty Todd GOODWIN Start: 02-11-2017 Radiologic examination knee 3 views OLIVIA ZAMAN Start: 10-06-2016 L knee synovectomy, poly exchange, quad plasty complicated by obesity Todd CALDWELLL ACDF 5-7 Todd CALDWELLL Gastric sleeve Todd CALDWELLL History of revision of left total knee arthroplasty Todd CALDWELLL left knee arthroscopy Michae kale CALDWELLL left total knee arthroplasty Todd CALDWELLL Local anesthetic ner ve block in lower limb Todd CALDWELLL Comment on above: left knee Lumbar spinal fusion Todd GOODWIN Nasal septoplasty Todd TERAN ELIZA Tonsillectomy and adenoidectomy Todd BUDDY Torsion of testis (disorder) Todd CALDWELLKale Plan of Treatment Date Care Activity Detail Author Start: 11-05-2027 Prostate specific antigen measurement Prostate Cancer Screening Discussion [facility] Start: 01-17-2026 Adult BMI Screening Adult BMI Screen ing [facility] Start: 01-17-2026 Tobacco Screening Tobacco Screening [facility] Start: 12-31-2025 Adult BMI Screening Adult BMI Screen ing [facility] Start: 12-27-2025 Adult BMI Screening Adult BMI Screen ing [facility] Start: 12-26-2025 Tobacco Screening Tobacco Screening [facility] Start: 03-15-2025 End: 03-15-2025 Patient encounter procedure 03/15/2025 3:00 PM EDT [facility] [address] [place] [place] [id number] Diane Khan, DO [address] [id number] [facility] Physicians Pulmonary/Sleep Medicine Start: 03-14-2025 Diabetes Screening Diabetes Screenin g [facility] Start: 02-26-2025 Influenza vaccination Influenza Vacc ine [facility] Start: 01-22-2025 End: 01-22-2025 Patient encounter procedure 01/22/2025 11:30 AM EDT Appointment [facility] - Pulmonary Function [address] [place] [id number] Diane Khan, DO [address] [address] [facility] Pulmonary Function Start: 01-17-2025 End: 01-17-2025 Clinical Support 01/17/2025 8:00 PM EDT Clinical Support [facility] [address] [place] [address] Mansoor Denis, CHICK GRADER-OPERATING ENGINEER APPRENTICE [address] [place] [address] [facility] Start: 10-20-2024 End: 10-20-2024 Patient encounter procedure 10/20/2024 9:10 PM EDT Office Visit Neurology [address] [place] [address] [facility] Comment on above: [facility] Start: 02-27-2024 Covid-19 Vaccine ( season) Covid-19 Vaccine ( season) [facility] Start: 02-27-2024 Influenza vaccination Influenza Vacc ine (#1) [facility] Start: 02-26-2021 Influenza vaccination Flu vaccine (# 1) [facility] [employer] [facility] Work Phone: Start: 2016 Administration of varicella zoster vaccine Zoster (Shingles) Vaccine (1 of 2) [facility] Start: 2016 Pneumococcal Vaccine : 50+ (1 of 1 - PCV) Pneumococcal Vaccine: 50+ (1 of 1 - PCV) [facility] Start: 2016 Shingles Vaccine (1 of 2) Shingles Vaccine (1 of 2) [facility] Phone: Start: 2016 Shingrix Vaccine (1 of 2) Shingrix Vaccine (1 of 2) [facility] Start: 09-07-2011 Screening for malign ant neoplasm of colon [facility] Start: 2006 Lipid panel Lipid screen [facility] Work Phone: Start: 2001 Lipid panel Lipid Screening [facility] Start: 1985 DTaP,Tdap and Td Vaccines (1 - Tdap) DTaP,Tdap and Td Vaccines (1 - Tdap) [facility] Start: 1985 DTaP/Tdap/Td vaccine (1 - Tdap) DTaP/Tdap/Td vaccine (1 - Tdap) [facility] Work Phone: Start: 1985 Hepatitis B Vaccine (1 of 3 - 19+ 3-dose series) Hepatitis B Vaccine (1 of 3 - 19+ 3-dose series) [facility] Start: 1985 Urine microalbumin profile DTaP,Tdap,Td Vaccine (1 - Tdap) [facility] Start: 1984 Adult BMI Follow Up Plan Adult BMI Follow Up Plan [facility] Start: 1984 Anxiety Screening Anxiety Screening [facility] Start: 1984 Depression Screening Depression Scre ing [facility] Start: 1984 Hepatitis C screening Hepatitis C [facility] Start: 1984 HIV screening HIV Screening [facility] Start: 1981 HIV screening HIV screen [facility] Work Phone: Start: 1978 Depression Screening Depression Scre [facility] Start: 1966 Hepatitis C screening Hepatitis C [facility] Work Phone: End: 08-04-2025 Polysomnogram POLYSOMNOGRAM (PSG) Procedures Routine Snoring Witnessed episode of apnea Frequent nocturnal awakening Nocturia RLS (restless legs syndrome) Suspected sleep apnea 1 Occurrences starting 08/04/2024 until 08/04/2025 [facility] Work Phone: Comment on above: 1 Occurrences starti ng 08/04/2024 until 08/04/2025 XR LUMBAR SPINE (2-3 VIEWS) XR LUMBAR SPINE (2-3 VIEWS) Imaging STAT 02/08/2021 12:10 PM EDT [facility] Work Phone: Immunizations Immunization Date Immunization Notes Care Provider Jenniffer lagos 04-14-2016 influenza virus vaccine, unspecified formulation London David MD Work Phone: [facility] NEGATED: Highlighted row has not occurred!08-13-2021 influenza virus vaccine, unspecified formulation Todd GOODWIN [facility] [place] Payers Date Payer Category Payer Medicare HMO [employer] [id number] 2021 Private Health Insurance DEVOTED [facility] HMO [id number] 2020 Medicare [id number] 2019 Unknown [id number] 2016 Unknown [id number] 1966 Unknown [id number] [id number]. 173 1966 Unknown [id number] [id number]. 647 1966 Unknown [id number] [id number]. 593 1966 Unknown [id number] [id number]. 593 1966 Unknown [id number] [id number]. 593 1966 Unknown [id number] [id number]. 593 1966 Unknown [id number] [id number]. 727 1966 Unknown [id number] [id number]. 1286 1966 Unknown [id number] [id number]. 1286 1966 Unknown [id number] [id number]. 1286 1966 Unknown [id number] [id number]. 1286 1966 Unknown [id number] [id number]. 1286 Social History Date Type Detail Facility Start: 04-25-2020 End: 02-08-2021 Tobacco smoking status [facility] Never smoker [facility] [place] Start: 04-25-2020 End: 02-08-2021 Tobacco use and exposure Never used [employer] Start: 1965 Sex Assigned At Not on file [employer] Work Phone: Exposure to SARS-CoV -2 (event) Not sure [facility] Tobacco smoking status Never [facility] [place] Start: 07-10-2020 End: 08-02-2024 Sex Assigned At Male [facility] Tobacco smoking stat [facility] Tobacco smoking consumption unknown [facility] Start: 07-10-2020 End: 08-02-2024 History of Social function [facility] Start: 12-26-2024 End: 01-17-2025 Alcoholic beverage intake Lifetime non-drinker (finding) [facility] Has the [employer] or water [employer] threatened to shut off services in your home in past 12Mo No [facility] How often to you hav e a drink containing alcohol? Never [facility] Start: 01-31-2015 Sex Male (finding) [facility] Medical Equipment Procedure Code Equipment Code Equipment Origin al Text Equipment Identifier Dates Sys Tng Susp Adj Kntls Bn Anch - Sna - [id number] Start: 06-24-2020 Goals Date Patient Goal Desired Activity /State Personal health goal Comment on above: Formatting of this n ote might be different from the original. Evaluation of progress towards goal: Patient plans to return to home with self care when he is improved. Functional Status Date Assessment Result Facility 12-16-2022 Functional Status N/A [facility] Clinical Notes 03-13-2022 to 01-18-2025 Telephone Encounter - Kiya Dumont MD - 01/18/2025 1:07 PM EDTTelephone Encounter - Kiya Dumont MD - 01/18/2025 1:07 PM EDTTelephone Encounter - Alyssa Helm - 01/02/2025 1:03 PM EDT Note Date & Type Note Facility 01-18-2025 Miscellaneous Notes Split night study ordered by Mansoor Denis APRN, CNP Please see full report. Alyssa/Tiesha please see if pulm appointment can be moved up (needs to be with an MD), he is scheduled with Dr. Khan but not until Feb. He has severe PATTI, hypoxemia, hypoventilation in the setting of recent admission for hypercapnic respiratory failure. He will need re-titration study. He has not seen our group. May need to ask PCP for order for re-titration if he cannot be seen soon, as hypoventilation was not treated with BiPAP settings tested. Will either need higher BiPAP settings or VAPS Split night polysomnogram on 2025-01-17 AHI (3%)=85.2 events/hour; AHI (4%)=82.2 events/hour; Paul SpO2=69.0%; (Lvodzq=750.0 lbs; BMI=49.8 kg/m2) DIAGNOSIS: Obstructive Sleep Apnea (G47.33) Sleep Related Hypoventilation/Hypoxemia - ICD code G47.36 COMMENTS: The baseline portion of the split-night study demonstrated severe obstructive sleep apnea and hypoxemia. Oxygen saturations quiet recumbent wakefulness at the start of the study were borderline, at 89-91%, but occasionally dipping to 87-88%; TCO2 values were 42-44 mmHg. When asleep there was hypoxemia although in the setting of very frequent and near persistent obstructive events. The mean oxygen saturation in sleep without PAP was 86%. On the baseline portion of the study without PAP there was no sleep related hypoventilation (TCO2 42-49 mmHg), although this developed later in N3 sleep on BiPAP after supplemental oxygen was initiated (TCO2 persistently 59-60 mmHg). Due to the severity of PATTI CPAP was initiated. CPAP settings of 5-16 cm of water were tested. There was significant REM rebound on CPAP. CPAP failed to treat this patient's sleep disordered breathing and BiPAP was initiated. BiPAP settings of 17/13- 19/13 cm of water were tested. Supplemental oxygen was added at 1L/min when on BiPAP 18/13 cm of water however after the addition of supplemental oxygen, hypoventilation developed and worsened when supplemental oxygen was increased to 2L/min. While PATTI was treated on BiPAP 19/13 cm of water with 2L/min supplemental oxygen, TCO2 values were 59-60 mmHg with oxygen saturations 89-91% TREATMENT CONSIDERATIONS: A re-titration study with TCO2 monitoring is recommended starting at BiPAP 20/13 cm of water without supplemental oxygen, increasing the pressure support for persistent hypoventilation. VAPS should be initiated if BiPAP fails to treat hypoventilation. documented in this encounter [employer] 01-18-2025 Telephone encounter Note Split night study ordered by Mansoor Denis APRN, CNP Please see full report. Alyssa/Tiesha please see if pulm appointment can be moved up (needs to be with an MD), he is scheduled with Dr. Khan but not until Feb. He has severe PATTI, hypoxemia, hypoventilation in the setting of recent admission for hypercapnic respiratory failure. He will need re-titration study. He has not seen our group. May need to ask PCP for order for re-titration if he cannot be seen soon, as hypoventilation was not treated with BiPAP settings tested. Will either need higher BiPAP settings or VAPS Split night polysomnogram on 2025-01-17 AHI (3%)=85.2 events/hour; AHI (4%)=82.2 events/hour; Paul SpO2=69.0%; (Mhrswl=765.0 lbs; BMI=49.8 kg/m2) DIAGNOSIS: Obstructive Sleep Apnea (G47.33) Sleep Related Hypoventilation/Hypoxemia - ICD code G47.36 COMMENTS: The baseline portion of the split-night study demonstrated severe obstructive sleep apnea and hypoxemia. Oxygen saturations quiet recumbent wakefulness at the start of the study were borderline, at 89-91%, but occasionally dipping to 87-88%; TCO2 values were 42-44 mmHg. When asleep there was hypoxemia although in the setting of very frequent and near persistent obstructive events. The mean oxygen saturation in sleep without PAP was 86%. On the baseline portion of the study without PAP there was no sleep related hypoventilation (TCO2 42-49 mmHg), although this developed later in N3 sleep on BiPAP after supplemental oxygen was initiated (TCO2 persistently 59-60 mmHg). Due to the severity of PATTI CPAP was initiated. CPAP settings of 5-16 cm of water were tested. There was significant REM rebound on CPAP. CPAP failed to treat this patient's sleep disordered breathing and BiPAP was initiated. BiPAP settings of 17/13- 19/13 cm of water were tested. Supplemental oxygen was added at 1L/min when on BiPAP 18/13 cm of water however after the addition of supplemental oxygen, hypoventilation developed and worsened when supplemental oxygen was increased to 2L/min. While PATTI was treated on BiPAP 19/13 cm of water with 2L/min supplemental oxygen, TCO2 values were 59-60 mmHg with oxygen saturations 89-91% TREATMENT CONSIDERATIONS: A re-titration study with TCO2 monitoring is recommended starting at BiPAP 20/13 cm of water without supplemental oxygen, increasing the pressure support for persistent hypoventilation. VAPS should be initiated if BiPAP fails to treat hypoventilation. [employer] Work Phone: 01-02-2025 Miscellaneous Notes Images from the original note were not included. Per sleep lab 12/28/24 encounter: Kiya Dumont MD routed this conversation to [facility] Traffic Manager Alyssa Helm (Selected Message) Kiya Dumont MD 01/01/25 3:18 PM Note OK for split night MUST use TCO2 given history of hypoxic hypercapnic respiratory failure PPG read/follow would likely benefit from pulm/sleep consult, PFT/CXR given history documented in this encounter [facility] 01-02-2025 Telephone encounter Note Images from the original note were not included. Per sleep lab 12/28/24 encounter: Kiya Dumont MD routed this conversation to [facility] Traffic Manager Alyssa Helm (Selected Message) Kiya Dumont MD 01/01/25 3:18 PM Note OK for split night MUST use TCO2 given history of hypoxic hypercapnic respiratory failure PPG read/follow would likely benefit from pulm/sleep consult, PFT/CXR given history [facility] 12-28-2024 Miscellaneous Notes 12/27 Order received Scheduled Split Night @ [facility] on 01/17 Chatted pre auth Routed Tim Emailed confirmation Adore Me Split Night Order and 12/27 Biggs notes in epic PT asked for [facility] documented in this encounter [facility] 12-28-2024 Telephone encounter Note 12/27 Order received Scheduled Split Night @ [facility] on 01/17 Chatted pre auth Routed Tim Emailed confirmation Adore Me Split Night Order and / Biggs notes in epic PT asked for PMH [facility] 11-16-2024 Note Patient Education Urology Urinary Frequency, Adult Urinary frequency means urinating more often than usual. You may urinate every 1?2 hours even though you drink a normal amount of fluid and do not have a bladder infection or condition. Although you urinate more often than normal, the total amount of urine produced in a day is normal. With urinary frequency, you may have an urgent need to urinate often. The stress and anxiety of needing to find a bathroom quickly can make this urge worse. This condition may go away on its own, or you may need treatment at home. Home treatment may include bladder training, exercises, taking medicines, or making changes to your diet. Follow these instructions at home: Bladder health Your health care provider will tell you what to do to improve bladder health. You may be told to: ??? Keep a bladder diary. Keep track of: ? What you eat and drink. ? How often you urinate. ? How much you urinate. ??? Follow a bladder training program. This may include: ? Learning to delay going to the bathroom. ? Double urinating, also called voiding. This helps if you are not completely emptying your bladder. ? Scheduled voiding. ??? Do Kegel exercises. Kegel exercises strengthen the muscles that help control urination, which may help the condition. Eating and drinking Follow instructions from your health care provider about eating or drinking restrictions. You may be told to: ??? Avoid caffeine. ??? Drink fewer fluids, especially alcohol. ??? Avoid drinking in the evening. ??? Avoid foods or drinks that may irritate the bladder. These include coffee, tea, soda, artificial sweeteners, citrus, tomato-based foods, and chocolate. ??? Eat foods that help prevent or treat constipation. Constipation can make urinary frequency worse. You may need to take these actions to prevent or treat constipation: ? Drink enough fluid to keep your urine pale yellow. ? Take yusp-tnu-lcakkrh or prescription medicines. ? Eat foods that are high in fiber, such as beans, whole grains, and fresh fruits and vegetables. ? Limit foods that are high in fat and processed sugars, such as fried or sweet foods. General instructions ??? Take lfbj-fca-xxhnjqe and prescription medicines only as told by your health care provider. ??? Keep all follow-up visits. This is important. Contact a health care provider if: ??? You start urinating more often. ??? You feel pain or irritation when you urinate. ??? You notice blood in your urine. ??? Your urine looks cloudy. ??? You develop a fever. ??? You begin vomiting. Get help right away if: ??? You are unable to urinate. Summary ??? Urinary frequency means urinating more often than usual. With urinary frequency, you may urinate every 1?2 hours even though you drink a normal amount of fluid and do not have a bladder infection or other bladder condition. ??? Your health care provider may recommend that you keep a bladder diary, follow a bladder training program, or make dietary changes. ??? If told by your health care provider, do Kegel exercises to strengthen the muscles that help control urination. ??? Take zloz-lxr-afbiiih and prescription medicines only as told by your health care provider. ??? Contact a health care provider if your symptoms do not improve or get worse. This information is not intended to replace advice given to you by your health care provider. Make sure you discuss any questions you have with your health care provider. Document Revised: 01/17/2021 Document Reviewed: 01/17/2021 [employer] Patient Education ? 2023 [email or web address]. [facility] 08-04-2024 Neil Black MD - 08/04/2024 8:50 AM EST PATTI [...] detail and any treatments options. - Call [phone] to schedule your sleep study and follow up appointment if it is not scheduled after your visit today with one of our schedulers. Sleep Nurse Practitioners: Nessa Bermudez [facility] [address] [place] [address] [facility] [address] [place] [address] [facility] [address] [address] Wednesday, Wednesday, Wednesday Appt: [phone] Marnie Bonilla, PhD, [facility] [address] [place] [id number] [facility] [address] [place] [address] Mondays, Tuesdays & Wednesday Appt: [phone] Polina Anglin, [place] [facility] [address] [place] [address] [facility] [address] [place] [address] [facility] [address] [place] [address] Wednesday, Wednesday, Wednesday Appt: [phone] Vania Bardales, [facility] [address] [place] [place] [address] [facility] [address] [place] [address] [facility] [address] [address] Wednesday, , Wednesday Appt: [phone] Maria Guadalupe Hemphill, [facility] [address] [place] [address] [facility] [address] [place] [address] Wednesday, Wednesday, Wednesday, Wednesday Appt: [phone] Parul Durham CNP [facility] [address] [place] [address] [facility] [address] [facility] [address] [facility] [address] Wednesday, Wednesday, Wednesday, Wednesday Appt: [phone] Any appointments can be scheduled through the central scheduling system for the [facility] [place] at [phone]. [employer] now offers direct scheduling for patients to schedule appointments. Virtual visits are also available. If not covered by your insurance, there is a 35% discount. Please contact your insurance to determine coverage. Call the office at [phone], option #5 for questions. May use Message My Doc through My Chart for questions. May use My Chart Refills for refill requests. [facility] website: [email or web address] documented in this encounter [facility] 08-04-2024 Note HNO ID: [id number] Author: LONDON DAVID MD Service: ? Author Type: Physician Type: Progress Notes Filed: 08/08/2024 09:00 Note Text: [facility] New Patient Evaluation PATIENT NAME: Rios Bartlett DATE OF SERVICE: August 04, 2024 I have communicated my name and active licensure. The patient's identity and physical location were verified at the time of this visit. Either the patient or their legal primary care sales representative has been informed of the [...] at an outside institution near his home ([facility]). 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 high chance of dozing (3) Watching TV? high (more content not included)... [facility] 08-04-2024 History of Presen t illness Narrative Images from the original note were not included. [facility] New Patient Evaluation PATIENT NAME: Rios Bartlett DATE OF SERVICE: August 04, 2024 I have communicated my name and active licensure. The patient's identity and physical location were verified at the time of this visit. Either the patient or their legal primary care sales representative has been informed of the [...] at an outside institution near his home ([facility]). 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 high chance [...] the patient's care with the resident/fellow. London David MD Sleep Medicine Appointments: [phone] Office: [phone] August 08, 2024 8:59 AM documented in this encounter [facility] 03-27-2022 Note Orthopedic Surgery First postoperative follow up after L4-5 decompression and fusion for disc degeneration and spinal stenosis 03/13/22 Residual radicular pain both lower extremities, LBP improving Patient History Past Surgical History: Procedure Laterality Date ADENOIDECTOMY 2020 CERVICAL SPINE SURGERY 2009 KNEE ARTHROPLASTY Left 2014 LEFT KNEE REPLACEMENT KNEE ARTHROSCOPY W/ MENISCECTOMY Left 2013 KNEE SURGERY Right 1999 KNEE SCOPE KNEE SURGERY Right 1999 SCREWS [...] as tolerated Follow up in 4 weeks [facility] 03-14-2022 Note Orthopaedic Discharg e Summary Patient ID: Rios Bartlett [id number] y.o. 1965 Admit date: 03/13/2022 Discharge date and time: 03/14/2022 4:32 PM Admitting Physician: Cheikh Galarza MD Discharge Physician: Cheikh Galarza MD Admission Diagnoses: Intervertebral disc disorders with [...] bedtime for 5 days. cholecalciferol 50 MCG (1999 UT) tablet Commonly known as: Vitamin D-3 [...] at bedtime for constipation. ergocalciferol 1.25 MG (74486 UT) capsule Commonly known as: Vitamin D-2 [...] These medications were sent to [id number] - [place], [place] - [address] [facility] [address] [facility] [address] acetaminophen 500 mg tablet acetaminophen 500 mg tablet cephalexin 500 mg capsule cholecalciferol 50 MCG (1999 UT) tablet docusate sodium 100 mg capsule docusate sodium 100 mg tablet ergocalciferol 1.25 MG (28302 UT) capsule methocarbamol 750 mg tablet ondansetron [...] Ambrosio Zavaleta MD in 10-14 days at [facility] Orthopaedic Clinic [phone] Hospital Course: Rios Bartlett was admitted on 03/13/2022 and underwent the aforementioned procedure. Post-operatively, he had adequate pain control and physical therapy to be able to be discharged from the hospital. DVT prophylaxis consisted of Lovenox only while admitted and none on discharge . Signed: Ambrosio Zavaleta MD 3:48 PM 04/02/2022 [facility] 03-14-2022 Note This report has been cancelled. [facility] 03-14-2022 Note Pt to discharge home with a rolling walker script. [facility] 03-14-2022 Note Physical Therapy Physical Therapy [...] stair negotiation at home 03/14/22 03/28/22 -- [facility] 03-14-2022 Note Occupational Therapy Occupational Therapy [...] REVISION LIPOMA RESECTION 08/2021 BACK MENISCECTOMY Right 1986 TESTICLE SURGERY 1986 TONSILLECTOMY 2019 UVULOPALATOPHARYNGOPLASTY 2019 [...] Level of Function Prior Function Level of Day: Independent with ADLs and functional transfers Vocational: [...] Eating meals?: None (Independent) Total Score OT [facility]: 21 ---- (more content not included)... [facility] 03-14-2022 Note Orthopedic Progress Note Status post Procedure(s) with comments: L4-L5 DECOMPRESSION WITH INTERBODY FUSION (Left) - C-ARM, SYNTHES, KAMALJIT TABLE, SSEP#[id number], REPS NOTIFIED RP. SUBJECTIVE: Patient seen and [...] MD Orthopaedic Surgery Resident, PGY-IV Personal pager: [phone] 03/14/2022 [facility] 03-13-2022 Note Patient: Rios holloway Procedure Summary Date: 03/13/22 Room / Location: [facility] OPERATING ROOM 12 / [facility] Operating Room Anesthesia Start: 734 Anesthesia Stop: 110 Procedure: L4-L5 DECOMPRESSION WITH INTERBODY FUSION (Left: Spine Lumbar) Diagnosis: (Degeneration of lumbar intervertebral disc) Surgeons: Cheikh Galarza MD Responsible Provider: Sara Felder MD Anesthesia [...] Hydration status: acceptable No notable events documented. [facility] 03-13-2022 Note Airway Date/Time: 03/13/2022 7:43 AM Urgency: elective Airway not difficult (done by medical student lawrence aguirre MS3) General Information and Staff Patient location during procedure: OR Anesthesiologist: Sara Felder MD Resident/RETAIL EVENT COORDINATOR/CAA: KRYSTAL Thompson Performed: other anesthesia staff Indications [...] Big neck.2 hand BMV with oral airway [facility] 03-13-2022 Note Patient: Rios holloway Procedure Information Date/Time: 03/13/22729 Procedure: L4-L5 DECOMPRESSION WITH INTERBODY FUSION (Spine Lumbar) - C-ARM, SYNTHES, KAMALJIT TABLE, SSEP#[id number], REPS NOTIFIED RP. Location: [facility] OPERATING ROOM 12 / [facility] Operating Room Surgeons: Cheikh Galarza MD Relevant Problems No relevant active problems [...] consented to blood products. Additional Equipment Requests [facility] Evaluation + Plan note Future Appointments Appointment Date:12/30/2022 02:40:00 PM Scheduled Provider:Todd GOODWIN MD Location:[facility] [place] Appointment Type: Procedure 30 General Surgery [place] Evaluation note Diagnosis Acute exacerbation of chronic low back pain- Primary [facility] note* Diagnosis Snoring- Primary Other dyspnea and respiratory abnormality Witnessed episode of apnea Frequent nocturnal awakening Other sleep disturbances Nocturia RLS (restless legs syndrome) Restless legs syndrome (RLS) Suspected sleep apnea [facility]* Diagnosis Obstructive sleep apnea Obstructive sleep apnea (adult) (pediatric) documented in this encounter [facility]ospital course Narrative No data available for this section General Surgery [place] [facility] Discharge instructions* Attachments The following attachments cannot be sent through Care Everywhere. * Low Back Pain: Exercises (Dutch) * Back Pain (Dutch) [facility] Hospital Discharge instructions No data available for this section General Surgery [place] InstructionsNot on filedocumented in this encounter [facility] SystemInstructionsNot on filedocumented in this encounter [facility] HospitalAct[facility] SystemProgress note No data available for this section General Surgery [place] Reason for visit Narrative* Misc (Routine) - Closed Specialty Diagnoses / Procedures Referred By Zen headley Referred To Contact Diagnoses Obstructive sleep apnea Procedures Split Night Sleep Study Mansoor Denis, MARIN-OPERATING ENGINEER APPRENTICE [address] [place] [address] Phone: tel: fax: [address] [place] [address] Phone: tel: Referral ID Status Reason Start Date Expiration Date Visits Re quested Visits Authorized [id number] Closed 12/27/2024 12/27/2025 1 1 [facility] Summary Purpose Family History No Family History Records FoundNo Family History Records FoundNo Family History Records FoundNo Family History Records FoundNo Family History Records FoundNo Family History Records FoundNo Family History Records FoundNo Family History Records FoundNo Family History Records FoundNo Family History Records FoundNo Family History Records Found Advance Directives No Advanced Directives Records Found Date Activated Date Inactivated Comments 12/26/2024 2:34 PM 12/31/2024 3:28 PM Date Activated Date Inactivated Comments 12/26/2024 2:14 AM 12/26/2024 1:45 PM Date Activated Date Inactivated Comments 06/24/2020 3:06 PM 06/27/2020 5:51 PM Documents on File Type Date Recorded Patient Architect Manager Expl anation ACP-Advance Directive ACP-Power of Fire Investigation Manager Date Activated Date Inactivated Comments 12/26/2024 2:34 PM Date Activated Date Inactivated Comments 12/26/2024 2:34 PM 12/31/2024 3:28 PM Date Activated Date Inactivated Comments 12/26/2024 2:14 AM 12/26/2024 1:45 PM Date Activated Date Inactivated Comments 06/24/2020 3:06 PM 06/27/2020 5:51 PM Additional Source Comments (unrecognized sect ion and content) No Status Records FoundNo Status Records FoundNo Status Records FoundNo Status Records FoundNo Status Records FoundNo Status Records FoundNo Status Records FoundNo Status Records FoundNo Status Records FoundNo Status Records FoundNo Status Records Found INFORMATION SOURCE (unrecogn ized section and content) DATE CREATED AUTHOR 12/22/2017 Elle fernando DATE CREATED AUTHOR AUTHOR'S ORGANIZ ATION 02/09/2021 Elle Cooper [facility] DATE CREATED AUTHOR AUTHOR'S ORGANIZ ATION 12/05/2021 [facility] DATE CREATED AUTHOR AUTHOR'S ORGANIZ ATION 03/05/2022 [facility] DATE CREATED AUTHOR AUTHOR'S ORGANIZ ATION 05/08/2022 [facility] DATE CREATED AUTHOR AUTHOR'S ORGANIZ ATION 11/08/2022 [facility] DATE CREATED AUTHOR AUTHOR'S ORGANIZ ATION 08/10/2024 [facility] DATE CREATED AUTHOR AUTHOR'S ORGANIZ ATION 11/22/2024 [facility] DATE CREATED AUTHOR AUTHOR'S ORGANIZ ATION 12/31/2024 [facility] DATE CREATED AUTHOR AUTHOR'S ORGANIZ ATION 01/11/2025 [facility] DATE CREATED AUTHOR AUTHOR'S ORGANIZ ATION 01/23/2025 [facility] Reason for Visit (unrecogniz ed section and content) Reason Comments Back Pain pt states he has chr onic low back pain, states the pain has gotten worse in the past 2 days with some increased activity. Pt states he has an appointment with his ortho Dr, in [place] on 02/21 Reason Comments Sleep Apnea Trouble [...] 1300 (Given - Provid er: Janet Hermosillo, ROGELIO) orphenadrine (NORFLEX) injection 60 mg 60 mg, Intramuscular, ONCE, On 02/08/21 at 1200, For 1 dose 1238 (Not Given - Pr ovider: Janet Hermosillo, RN - Reason: Patient/family refused - Comment: pt has no ride home) Patient Care team informatio n (unrecognized section and content) Services Executive Relationship Specialty Start Date End Date Mary Coronado MD PCP - General Family Medicine 01/11/18 Services Executive Relationship Specialty Start Date End Date Mary Coronado MD PCP - General Family [facility] 04/25/20 Services Executive Relationship Specialty Start Date End Date Mayr Coronado MD PCP - General Family Medicine 04/25/20 Services Executive Relationship Specialty Start Date End Date Mary Coronado MD PCP - General [facility] 04/25/20 Services Executive Relationship Specialty Start Date End Date Mary Coronado MD PCP - [facility] Family [facility] 04/25/20 Source Comments (unrecognize d section and content) In the event this informatio n is protected by the Federal Confidentiality of Alcohol and Drug Abuse Patient Records regulations: The Federal rules restrict any use of the information to criminally investigate or prosecute any alcohol or drug abuse patient.[facility] FOR RECORDS PERTAINING TO PATIENTS WHO [...] BE BASED ON THE PRIMARY CLINICAL RECORDS. [facility] [employer] [facility]. provides no warranty or guarantee of the accuracy or completeness of information in this document.
[2025-01-25 07:40] LABS: Hematocrit 45.6 % (42.0-54.0); Hemoglobin 14.7 g/dL (14.0-18.0); Immature Granulocytes Abs Auto 0.04 10^3/uL (0.00-0.03); Immature Granulocytes Pct Auto 0.5 % (0.0-0.5); Lymphocytes Absolute Auto 2.7 10^3/uL (1.2-3.8); Mean Corpuscular HGB Conc 32.2 g/dL (29.9-35.2); Mean Corpuscular Hemoglobin 30.3 pg (25.9-34.0); Mean Corpuscular Volume 94.0 fL (80.0-94.0); Platelet Count 197 10^3/uL (150-450); Red Blood Count 4.85 10^6/uL (4.70-6.10); White Blood Count 8.8 10^3/uL (4.0-11.0)
[2025-01-25 07:46] LABS: Alanine Aminotransferase 46 U/L (16-63); Albumin Globulin Ratio 1.0; Albumin Level 3.2 g/dL (3.4-5.0); Alkaline Phosphatase 61 U/L (46-116); Anion Gap 11.8; Aspartate Amino Transferase 22 U/L (15-37); Blood Urea Nitrogen 20.0 mg/dL (7.0-18.0); Calcium 8.6 mg/dL (8.5-10.1); Carbon Dioxide 29.8 mmol/L (21.0-32.0); Chloride 106 mmol/L (98-107); Estimated GFR (African America >60 (>=60 mL/min/1.73m^2); Estimated GFR (Non-African Ame >60 (>=60 mL/min/1.73m^2); Free T3 1.86 pg/mL (2.18-3.98); Globulin 3.3 g/dL; Glucose 107 mg/dL (74-106); NT Pro B Type Natriuretic Pept 137.0 pg/mL (<=900.0); Potassium 4.6 mmol/L (3.5-5.1); Sodium 143 mmol/L (136-145); Thyroid Stimulating Hormone 2.149 uIU/mL (0.358-3.740); Total Protein 6.5 g/dL (6.4-8.2)
== END 2025-01-25 06:36 | disposition home or self-care (01) ==
LOC: LAB 06:38
PROVIDERS: PCP Family Medicine; Visit Provider Family Medicine
DX: R53.1 Weakness (principal); E66.9 Obesity, unspecified; R51.9 Headache, unspecified; B37.0 Candidal stomatitis; R44.3 Hallucinations, unspecified; R06.00 Dyspnea, unspecified; R53.83 Other fatigue; I11.0 Hypertensive heart disease with heart failure; R73.09 Other abnormal glucose
CPT/HCPCS: 36415; 80053; 83036; 83525; 83880; 84436; 84443; 84481; 85025

== ENCOUNTER 2025-01-31 09:55 | Outpatient (OUT) | payer OTHER, SELFPAY ==
--- OUTSIDE RECORDS SUMMARY | 2025-01-17 20:00 | XMS_ITS | Encounter Summary ---
Author Organization [facility] tem Address [id number] [address] [place] [address] Care Team Providers Care [employer] Certified Internetwork Expert Name Role Phone Gilbert Kline MD Primary Care Provider [phone] Reason for Visit * Misc (Routine) - Closed Specialty Diagnoses / Procedures Referred By Zen headley Referred To Contact Diagnoses Obstructive sleep apnea Procedures Split Night Sleep Study Deepika Denis, MARIN-MASON LINER [address] [place] [address] Phone: tel: fax: [place] [address] [place] [address] Phone: tel: Referral ID Status Reason Start Date Expiration Date Visits Re quested Visits Authorized [id number] Closed 12/27/2024 12/27/2025 1 1 Encounter Details Date Type Department Care Team (Latest Contact Info) Description 01/17/2025 8:00 PM EDT Clinical Support [facility] - Sleep Disorders [address] [place] [id number] Deepika Denis, MARIN-MASON LINER [address] [place] [address] Obstructive sleep apnea Social History Tobacco Use Types Packs/Day Years Used Date Smoking Tobacco: Never Smokeless Tobacco: Never Alcohol Use Standard Drinks/Week Comments Never 0 (1 standard drink = 0.6 oz pur e alcohol) [facility] Utilities Answer Date Recorded In the past 12 months has th e electric, gas, oil, or water company threatened to shut off services in your home? No 12/26/2024 AUDIT-C Answer Date Recorded Q1: How often do you have a drink containing alc ohol? Never 05/10/2020 Average Number of Drinks Not on file 020 Frequency of Binge Drinking Not on file 04/28 PHQ-2 Answer Date Recorded Total Score 0 06/24/2020 PRAPARE - Transportation Answer Date Re corded In the past 12 months, has l ack of transportation kept you from medical appointments or from getting medications? No 06/2024 In the past 12 months, has l ack of transportation kept you from meetings, work, or from getting things needed for daily living? No 12/26/2024 Housing Instability Answer Date Recorde d Are you worried or concerned that in the next two months you may not have stable housing that you own, rent or stay in as a part of a household? No 12/26/2024 Childcare Answer Date Recorded Do problems getting child ca re make it difficult for you to work or study? No 06/24/2020 Employment Answer Date Recorded Do you need help finding a [facility] and/or a training program? No 06/24/2020 Hunger Screening Answer Date Recorded Within the past 12 months we worried whether our food would run out before we got money to buy more. Never True 12/26/2024 Within the past 12 months th e food we bought just didn't last and we didn't have money to get more. Never True 12/26/2024 Purpose - Life Answer Date Recorded Purpose and direction in life Unknown Sex and Gender Information Value Date Recorded Sex Assigned at Not on file Legal Sex Male 11:58 AM EDT Gender Identity Not on file Sexual Orientation Not on file documented as of this encounter Last Filed Vital Signs Vital Sign Reading Time Taken Comments Blood Pressure - - Pulse - - Temperature - - Respiratory Rate - - Oxygen Saturation - - Inhaled Oxygen Concentration - - Weight 153.8 kg (339 lb) 01/17/2025 8:23 PM EDT Height 175.3 cm (5' 9 ) 01/17/2025 8:23 PM EDT Body Mass Index 50.06 01/17/2025 8:23 PM EDT documented in this encounter Plan of Treatment Upcoming Encounters Date Type Department Care Team (Late st Contact Info) Description 03/15/2025 3:00 PM EDT Office Visit [facility] Pulmonary/Sleep Medicine [address] [facility] [address] Diane Khan DO [address] [address] 04/03/2025 8:00 PM EDT Clinical Support [facility] - Sleep Disorders [address] [place] [address] documented as of this encounter Goals Goal Patient Goal Type Associated Problems Recent Progress Patient-Stated? Author Home with self care General Yes Conchita Levine, RN Note: Evaluation of progress towards goal: Patient plans to return to home with self care when he is improved. documented as of this encounter Procedures Procedure Name Priority Date/Time Associated Diagnosis Comments SPLIT NIGHT SLEEP STUDY Routine 01/17/2025 8:26 PM EDT Obstructive sleep apnea documented in this encounter Results * Split Night Sleep Study (01/17/2025 8:26 PM EDT) 01/17/2025 8:26 PM EDT Narrative SLEEPLAB - 01/18/2025 1:16 PM EDT INTERPRETED Deepika Denis APRN-[facility] ORDERABLES Fi nal Result SLEEPLAB documented in this encounter Visit Diagnoses Diagnosis Obstructive sleep apnea Obstructive sleep apnea (adult) (pediatric) documented in this encounter Additional Health Concerns Assessment Noted Time PHQ-9 Depression Total Score: 0 06/24/20 20 6:36 PM EST documented as of this encounter Care Teams [employer] Certified Internetwork Expert Relationship Specialty Start Date End Date Gilbert Kline MD PCP - General Family Medicine 04/25/20 documented as of this encounter
--- OUTSIDE RECORDS SUMMARY | 2025-01-22 11:25 | XMS_ITS | Encounter Summary ---
Author Organization [facility] tem Address [id number] [address] [place] [address] Care Team Providers Care Agricultural Economist Name Role Phone Gilbert Kline MD Primary Care Provider [phone] Encounter Details Date Type Department Care Team (Latest Contact Info) Description 01/22/2025 11:25 AM EDT - 01/22/2025 11:59 PM EDT Hospital Encounter [facility] - Pulmonary Function [address] [place] [address] Diane Khan, DO [address] [address] Hypoxia Discharge Disposition: Home Social History Tobacco Use Types Packs/Day Years Used Date Smoking Tobacco: Never Smokeless Tobacco: Never Alcohol Use Standard Drinks/Week Comments Never 0 (1 standard drink = 0.6 oz pur e alcohol) [facility] Utilities Answer Date Recorded In the past 12 months has e [employer], gas, oil, or water [employer] threatened to shut off services in your [...] Recorded Do you need help finding a [facility] career center and/or a training program? No [...] on file documented as of this encounter Medications at Time of Discharge benzonatate (TESSALON PERLES) 100 mg capsule Take 1 capsule (100 mg total) by mouth 3 (three) times a day as needed for cough. 20 capsule 01/01/2025 hydrOXYzine (ATARAX) 25 mg tablet Take 1 tablet (25 mg total) by mouth once as needed for anxiety. 01/04/2025 ketoconazole (NIZORAL) 2 % cream Apply 1 Application topically in the morning. 11/02/2024 predniSONE (DELTASONE) 10 mg tablet 3 tabs for 3 days, 2 tabs for 3 days, 1 tab for 3 days 18 tablet 01/01/2025 documented as of this encounter Plan of Treatment Upcoming Encounters Date Type Department Care Team (Late st Contact Info) Description 03/15/2025 3:00 PM EDT Office Visit [facility] Pulmonary/Sleep Medicine [address] [place] [address] Diane Khan, DO [address] [address] 04/03/2025 8:00 PM EDT Clinical Support [facility] - Sleep Disorders [address] [place] [address] Pending Results Name Type Priority Associated Diagnoses Date /Time Pulmonary function test Complete PFT w/ BD (Spirometry (Flow Volume Loop) pre/post short acting bronchodilator w/ DLCO (diffusion study) and Lung Volume) PFT Routine Hypoxia 01/22/2025 11:59 AM EDT Scheduled Orders Name Type Priority Associated Diagnoses Orde r Schedule Pulmonary function test Complete PFT w/ BD (Spirometry (Flow Volume Loop) pre/post short acting bronchodilator w/ DLCO (diffusion study) and Lung Volume) PFT Routine Hypoxia Once for 1 Occurrences starting 01/22/2025 until 01/22/2025 documented as of this encounter Goals Goal Patient Goal Type Associated Problems Recent Progress Patient-Stated? Author Home with self care General Yes Conchita Levine, RN Note: Evaluation of progress towards goal: Patient plans to return to home with self care when he is improved. documented as of this encounter Visit Diagnoses Diagnosis Hypoxia Hypoxemia documented in this encounter Administered Medications Inactive Administered Medications - up to 3 most recent administrations Medication Order MAR Action Action Date Dose Rate Site albuterol (PROVENTIL,VENTOLIN) nebulizer solution 2.5 mg 2.5 mg, nebulization, Once, On Wed01/22/25 at 1130, For 1 dose, Implement INPATIENT/ED Bronchodilator Clinical Practice Guidelines? No Given 01/22/2025 11:41 AM EDT 2.5 mg documented in this encounter Additional Health Concerns Assessment Noted Time PHQ-9 Depression Total Score: 0 06/24/20 20 6:36 PM EST documented as of this encounter Care Teams Agricultural Economist Relationship Specialty Start Date End Date Gilbert Kline MD PCP - General Family Medicine 04/25/20 documented as of this encounter
--- OUTSIDE RECORDS SUMMARY | 2025-01-25 08:45 | XMS_ITS ---
Author Organization [facility] [place] Address [address] [place] [address] Care Team Providers Care Radio Announcer Name Role Phone Vargas Kline Primary Care Provider REASON FOR VISIT lab results and wants Ozempic Medications Medication SIG (Take, Route, Frequency, Duration) Notes Start Date End Date Status Ozempic (0.25 or 0.5 MG/DOSE) 2 MG/3ML 0.25 mg Subcutaneous weekly for 28 days G47.33 01/25/2025 Active Liothyronine Sodium 5 MCG 2 tablet on an empty stomach Orally Once a day for 30 days 01/25/2025 Active Problems Problem Type SNOMED Code ICD Code Onset Dates Problem Status W/U Status Risk Notes Problem Hypothyroid (E03.9) Active confirmed Encounters Encounter Location Date Provider Diagnosis [facility] [address] [place] [address] 01/25/2025 Vargas Kline Hypothyroid E03. 9 Assessments Encounter Date Diagnosis (ICD Code) Assessment Notes Treatment Notes Treatment Clinical Notes Section Notes 01/25/2025 Hypothyroid (ICD-10 - E03.9) Plan Of Treatment Medication Medication Name Sig Start Date Stop Date Notes Ozempic (0.25 or 0.5 MG/DOSE ) 2 MG/3ML 0.25 mg Subcutaneous weekly for 28 days 01/25/2025 Liothyronine Sodium 5 MCG 2 tablet on an empty stomach Orally Once a day for 30 days 01/25/2025 Pending Test Test Name Order Date THYROID PANEL (T4/TSH/FREE T3) Progress Notes * Rios LOPEZ TDOB:[birth year] (59 yo M)Acc No.[id number]:01/25/2025 Patient: Rios MONCADA :1965 A ge:59 Y S ex:Male Address:[address], [address] * Refills Start Liothyronine Sodium Tablet, 5 MCG, Orally, 60 Tablet, 2 tablet on an empty stomach, Once a day, 30 days, Refills=1 Start Ozempic (0.25 or 0.5 MG/DOSE) Solution Pen-injector, 2 MG/3ML, Subcutaneous, 1, 0.25 mg, weekly, 28 days, Refills=11 Subjective: * Chief Complaints: * l ab results and wants Ozempic * Medical History: * Surgical History: * Hospitalization/Major Diagno stic Procedure: * Medications: Objective: * Vitals: * Physical Examination: Assessment: * Assessment: 1. H ypothyroid - E03.9 (Primary) Plan: * Treatment: 2. O thers Start Liothyronine Sodium Tablet, 5 MCG, 2 tablet on an empty stomach, Orally, Once a day, 30 days, 60 Tablet, Refills 1; S tart Ozempic (0.25 or 0.5 MG/DOSE) Solution Pen-injector, 2 MG/3ML, 0.25 mg, Subcutaneous, weekly G47.33, 28 days, 1, Refills 11. * Procedure Codes: * true * Date: Generated for Rick dodge/Hodan/Lizzieitting on: 0 01/31/2025 09:59 AM EDT
--- OUTSIDE RECORDS SUMMARY | 2025-01-29 11:19 | XMS_ITS ---
Author Organization [facility] [place] Address [address] [place] [address] Care Team Providers Care Welder Apprentice Name Role Phone Vargas Kline Primary Care Provider REASON FOR VISIT ozempic to mailorder Medications Medication SIG (Take, Route, Frequency, Duration) Notes Start Date End Date Status Ozempic (0.25 or 0.5 MG/DOSE) 2 MG/3ML 0.25 mg Subcutaneous weekly for 28 days G47.33 01/25/2025 Active Encounters Encounter Location Date Provider Diagnosis [address] [address] 01/29/2025 Vagras Kline Plan Of Treatment Medication Medication Name Sig Start Date Stop Date Notes Zepbound 7.5 MG/0.5ML 0.5 mL Subcutaneous weekly Ozempic (0.25 or 0.5 MG/DOSE) 2 MG/3ML 0.25 mg Subcutaneous weekly for 28 days 01/25/2025 Progress Notes * Rios LOPEZ TDOB:[birth year] (59 yo M)Acc No.[id number]:01/29/2025 Patient: Azalia DEVAUGHNPATRICIARios :1965 A ge:59 Y S ex:Male Address:[address] [address], [place], [address] * Refills Refill Ozempic (0.25 or 0.5 MG/DOSE) Solution Pen-injector, 2 MG/3ML, Subcutaneous, 1, 0.25 mg, weekly, 28 days, Refills=11 Stop Zepbound Solution, 7.5 MG/0.5ML, Subcutaneous, 0.5 mL, weekly * true * Date: Generated for Rick dodge/Hodan/Santo on: 0 01/31/2025 09:59 AM EDT
--- OUTSIDE RECORDS SUMMARY | 2025-01-31 05:48 | XMS_ITS ---
Author Organization [facility] in [place] Address [address] [place] [address] Care Team Providers Care Vp Securities Name Role Phone Vargas Kline Primary Care Provider REASON FOR VISIT Nystatin not helping Encounters Encounter Location Date Provider Diagnosis [facility] [address] [place] [address] 01/31/2025 Vargas Kline Plan Of Treatment No Information Progress Notes * Rios LOPEZ TDOB:[birth year] (59 yo M)Acc No.[id number]:01/31/2025 UNLOCKED PROGRESS NOTE Patient: Azalia BAGLEYRios :1965 A ge:59 Y S ex:Male Address:[address], [place], [address] * * Date:
--- OUTSIDE RECORDS SUMMARY | 2025-01-31 09:59 | XMS_ITS | Encounter Summary ---
Author Organization [employer] [facility] tem Address [id number] [address] [place] [address] Care Team Providers Care Director Software Development Name Role Phone Gilbert Kline MD Primary Care Provider [phone] Reason for Visit * Reason Onset Date Comments Sleep Lab 01/26/2025 BiPAP Encounter Details Date Type Department Care Team ([facility] Contact Info) Description [facility] [address] [facility] [place] [address] Gilbert Kline MD [address] [place] [address] Sleep Lab (BiPAP) Social History Tobacco Use Types Packs/Day Years Used Date Smoking Tobacco: Never Smokeless Tobacco: Never Alcohol Use Standard Drinks/Week Comments Never 0 (1 standard drink = 0.6 oz pur e alcohol) [facility] Utilities Answer Date Recorded In the past 12 months has [employer], gas, oil, or water [employer] threatened to shut off services in your [...] Recorded Do you need help finding a [facility] and/or a training program? No [...] on file documented as of this encounter Miscellaneous Notes * Telephone Encounter - Jeffry Orozco - 01/26/2025 9:07 AM EDT 01/25 order received Scheduled BiPAP retitration at [facility] on 04/03 Confirmation emailed [employer] BiPAP re-titration order & 12/27 [facility] notes in epic Re-Titration study with TCO2 monitoring. Starting at BiPAP 20/13 CM of water without supplemental oxygen, increasing the pressure support for persistent hypoventilation. VAPS should be initiated if BiPAP fails to treat hypoventilation. documented in this encounter Plan of Treatment Upcoming Encounters Date Type Department Care Team (Late st Contact Info) Description 03/15/2025 3:00 PM EDT Office Visit [facility] [address] [place] [address] Diane Khan, DO [address] [address] 04/03/2025 8:00 PM EDT Clinical Support [facility] [address] [place] [address] documented as of this encounter [...] documented as of this encounter Care Teams Director Software Development Relationship Specialty Start Date End Date Gilbert Kline MD PCP - General Family Medicine 04/25/20 documented as of this encounter
--- OUTSIDE RECORDS SUMMARY | 2025-01-31 09:59 | XMS_ITS | Clinical Summary ---
Author Organization [facility] Address [address] [place] [address] Care Team Providers Care Construction Lineman Name Role Phone Gilbert Kline MD Primary Care Provider [phone] Allergies Active Allergy Reactions Criticality Noted Date Comments Morphine Itching 03/03/2022 Medications Ozempic 0.25 mg or 0.5 mg (2 mg/3 mL) pen injector inject 0.25 milligrams subcutaneously every week for 30 DAYS 3 Active omeprazole (PriLOSEC) [address] capsule Take 20 mg by mouth twice a day. 2 Active methocarbamol (Robaxin) 750 mg tablet Take [...] at Not on file Legal Sex Male 12:38 AM EDT Gender Identity Not on file [...] Vaccines (1 of 2) 2016 COVID-19 Vaccine (2023-2 5 season) 2024 Influenza Vaccine (#1) 2025 6, 04/18/2015 HIB Vaccines Aged Out No longer [...] this topic Medical Devices Implanted Type Area Tube Builder Device Identifier Shelf Expiration Date Model / Serial / Lot Tissue Vivigen, 10 - [id number] - [id number] Implanted:Qty: 1 on 03/13/2022 by Cheikh Galarza MD at [facility] Allograft Tissue Left: Spine Lumbar LIFENET [id number] 11/14/2022 BL-1500-0 03 / [id number] / Tissue Vivigen, [facility] - [id number] - [id number] Implanted:Qty: 1 on 03/13/2022 by Cheikh Galarza MD at [facility] Allograft Tissue Left: Spine Lumbar LIFENET BL-1500-003 11/28/2022 BL-1500-0 / [id number] / Tiss Bone,Canc,Chip s,Pres,60cc - [id number] - [id number] Implanted:Qty: 1 on 03/13/2022 by Cheikh Galarza MD at [facility] Bone Left: Spine Lumbar LIFENET PCAN60 12/12/2024 PCAN60 / [id number] / Tiss Allograft,Tp11 mm,6x1x2.5 - [id number] - [id number] Implanted:Qty: 1 on 03/13/2022 by Cheikh Galarza MD at [facility] Bone Left: Spine Lumbar MTF 01/14/2025 [id number] / [id number] / Collar,Ti,Groo ves - [id number] Implanted:Qty: 4 on 03/13/2022 by Cheikh Galarza MD at [facility] Clamp Left: Spine Lumbar ESTEPHANAI/ESTEPHANIA ORTHO [id number] [id number] / / Ti-Nut,11m-Wid th,Across-Flat s - [id number] Implanted:Qty: 4 on 03/13/2022 by Cheikh Galarza MD at [facility] Nut Left: Spine Lumbar ESTEPHANIA/ESTEPHANIA ORTHO [id number] [id number] / / Agustin,6.0m,Ti-[address],50m - [id number] Implanted:Qty: 2 on 03/13/2022 by Cheikh Galazra MD at [facility] Pin Left: Spine Lumbar ESTEPHANIA/ESTEPHANIA ORTHO [id number] 498.102 / / Screw,Side-Ope n,7.0m,50mm - [id number] Implanted:Qty: 4 on 03/13/2022 by Cheikh Galarza MD at [facility] Screw Left: Spine Lumbar ESTEPHANIA/ESTEPHANIA ORTHO [id number] 498.750 / / Insurance [employer] Advance Directives * Full Code (Latest Code Status on File) Date Activated Date Inactivated Comments 03/13/2022 10:59 AM 03/14/2022 6:36 PM Care Teams Construction Lineman Relationship Specialty Start Date End Date Gilbert Kline MD [address] [place] [address] PCP - General 03/04/22
--- OUTSIDE RECORDS SUMMARY | 2025-01-31 09:59 | XMS_ITS | Encounter Summary ---
Author Organization [facility] Address [facility]-[id number] [address] [place] [address] Care Team Providers Care Guest Room Inspector Name Role Phone Gilbert Kline MD Primary Care Provider [phone] Encounter Details Date Type Department Care Team (Late st Contact Info) Description 01/18/2025 Telephone [facility] [address] [place] [address] Kiya Dumont MD [address] [place] [address] Social History Tobacco Use Types Packs/Day Years Used Date Smoking Tobacco: Never Smokeless Tobacco: Never Alcohol Use Standard Drinks/Week Comments Never 0 (1 standard drink = 0.6 oz pur e alcohol) [facility] Utilities Answer Date Recorded In the past 12 months has e electric, gas, oil, or water company [...] Recorded Do you need help finding a [facility] career center and/or a training [...] encounter Miscellaneous Notes * Telephone Encounter - Kiya Dumont MD - 01/18/2025 1:07 PM EDT Split night study ordered by Deepika Denis APRN, CNP Please see full report. [...] (3%)=85.2 events/hour; AHI (4%)=82.2 events/hour; Paul SpO2=69.0%; (Geixph=160.0 lbs; BMI=49.8kg/m2) DIAGNOSIS: Obstructive Sleep Apnea (G47.33) Sleep Related Hypoventilation/Hypoxemia - ICD code G47.36 COMMENTS: The baseline portion of the split-night study demonstrated severe obstructive sleep apnea and hypoxemia. Oxygen saturations quiet recumbent wakefulness at the start of the study were borderline, at 89-91%, but occasionally dipping to 87-88%; TCO2 values were 42- 44 mmHg. When asleep there was hypoxemia although [...] of 5-16 cm of water were tested. Therewas significant REM rebound on CPAP. CPAP failed to treat this patient's sleep disordered breathingand BiPAP was initiated. BiPAP settings of 17/13- 19/13 cm of water were tested. Supplemental oxygen was added at 1L/min when on BiPAP 18/13 cm of water however after the addition of supplemental oxyg en, hypoventilation developed and worsened when supplemental oxygen [...] initiated if BiPAP fails to treat hypoventilation. * Telephone Encounter - Alyssa Helm - 01/18/2025 1:07 PM EDT LVM for pt to review / writers direct c/b number left in message. Also pended re-titration order Roman Denis to sign if agreeable (with AD recommendations indicated in the comments). * Telephone Encounter - Alyssa Helm - 01/18/2025 1:07 PM EDT Pt called back, reviewed results of SPLIT study and recommendation for another sleep study. Pt veryupset, says doesn't want to do another study / also really doesn't want BiPAP. Says he understands risks of untreated PATTI and everyone keeps telling him he could if he doesn't use this machine but he just really does not want it. Advised pt will try to see if sooner UTILITIES GROUND WORKER appt becomes available to so can discuss with physician. In interim, sleep lab may call to schedule another sleep study andits up to him if schedules or not. * Telephone Encounter - Alyssa Helm - 01/18/2025 1:07 PM EDT Deepika Denis sent chat that she can't sign order for pt as she is a hospitalist. Reviewed with KW, ok to wait until pt's already scheduled UTILITIES GROUND WORKER appt with SE in Feb/ ok to see SE. * Telephone Encounter - Janie Colindres MD - 01/18/2025 1:07 PM EDT agreed * Telephone Encounter - Alyssa Helm - 01/18/2025 1:07 PM EDT Images from the original note were not included. Harleen (nurse from Dr Hutson office- pt's PCP) called in. Pt completed an appt with Dr Kline on 01/24 and she is questioning if BiPAP machine was ordered. Informed her of below conversation with pt and offered to send SPLIT interp and recommended comments for ordering repeat titration, per Dr Dumont's interp. Faxed all to Harleen at [phone] (their office not in [facility]). Dr Kline may place the order in interim to pt's appt with SE in Feb. Called pt and informed and pt says he is now willing to complete the repeat titration and he has number to sleep lab to schedule. Chat sent to sleep lab to try to schedule pt brunilda once order is received. Fax confirmation received documented in this encounter Plan of Treatment Upcoming Encounters Date Type Department Care Team (Late st Contact Info) Description 03/15/2025 3:00 PM EDT Office Visit [facility] Pulmonary/Sleep Medicine [address] [facility] [place] [phone] Diane Khan, DO [address] [address] 04/03/2025 8:00 PM EDT Clinical Support [facility] - Sleep Disorders [address] [place] [phone] documented as of this encounter Goals Goal [...] documented as of this encounter Care Teams Guest Room Inspector Relationship Specialty Start Date End Date Gilbert Kline MD PCP - General Family Medicine 04/25/20 documented as of this encounter
--- OUTSIDE RECORDS SUMMARY | 2025-01-31 09:59 | XMS_ITS | Clinical Summary ---
Author Organization [facility] Address [address], [address] [place] [address] Care Team Providers Care Gasoline Engine Assembler Name Role Phone Gilbert Kline MD Primary Care Provider [phone] Allergies Active Allergy Reactions Criticality Noted Date Comments Morphine 02/23/2018 Medications No known medications Active Problems No known active problems Family History Medical History Relation Name Comments Heart Disease Father Cancer Mother Stroke Mother Relation Name Status Comments Father Mother Social History Tobacco Use Types Packs/Day Years Used Date Smoking Tobacco: Never Smokeless Tobacco: Never Sex and Gender Information Value Date Recorded Sex Assigned at Not on file Legal Sex Male 5:53 PM EST Gender Identity Not on file Sexual Orientation Not on file Last Filed Vital Signs Vital Sign Reading Time Taken Comments Blood Pressure 119/90 02/08/2021 10:49 AM EDT Pulse 92 02/08/2021 10:49 AM EDT Temperature 36.9 C (98.4 F) 02/08/2021 10:49 AM EDT Respiratory Rate 18 02/08/2021 10:49 AM EDT Oxygen Saturation 94% 02/08/2021 10:49 AM EDT Inhaled Oxygen Concentration - - Weight 133.8 kg (295 lb) 02/08/2021 10:49 AM EDT Height 177.8 cm (5' 10 ) 01/03/2020 2:32 PM EDT Body Mass Index 42.33 01/03/2020 2:32 PM EDT Plan of Treatment Not on file Insurance [employer] Care Teams Gasoline Engine Assembler Relationship Specialty Start Date End Date Gilbert Kline MD [address] [id number] PCP - General Family Medicine 02/09/17
--- OUTSIDE RECORDS SUMMARY | 2025-01-31 09:59 | XMS_ITS | Encounter Summary ---
Author Organization [facility] Address [address] [place] [address] Care Team Providers Care Silk Soaker Name Role Phone Gilbert Kline MD Primary Care Provider [phone] Source Comments In the event this information is protected by the Federal Confidentiality of Alcohol and Drug AbusePatient Records regulations: The Federal rules restrict any use of the information to criminally investigate or prosecute any alcohol or drug abuse patient.[facility] Encounter Details Date Type Department Care Team (Late st Contact Info) Description 10/12/2024 Patient Msg Neurology [address] [place], [place] [id number] Provider, Ccf Please confirm your sleep study [...] N ot on file 06/04/2020 Data from: [email or web address] Last address used for calculation Not on [...] on filedocumented in this encounter Care Teams Silk Soaker Relationship Specialty Start Date End Date Gilbert Kline MD PCP - General Family Medicine 01/11/18 documented as of this encounter
--- OUTSIDE RECORDS SUMMARY | 2025-01-31 09:59 | XMS_ITS | Encounter Summary ---
[facility] Organization [facility] Address [facility]-[id number] [address] [place] [address] Care Team Providers Care Room Service Food Service Attendant Name Role Phone Gilbert Kline MD Primary Care Provider [phone] Encounter Details Date Type Department Care Team ([facility] Contact Info) Description 05/09/2020 Orders Only [facility] - Pre Admit [address] [place] [address] Padmini Heck RN Social History Tobacco Use Types Packs/Day [...] Upcoming Encounters Date Type Department Care Team ([facility] Contact Info) Description 03/15/2025 3:00 PM EDT Office Visit [facility] Pulmonary[facility]Sleep Medicine [address] [place] [address] Diane Khan, DO [address] [address] 04/03/2025 8:00 PM EDT Clinical Support [facility] - Sleep Disorders [address] [place] [phone] documented as of this encounter Visit Diagnoses Not on filedocumented in this encounter Additional Health Concerns Infection Onset Date Last Indicated Resolved Time Respiratory Rule-Out 12/26/2024 12/25/2024 025 11:18 AM EDT Enteric Rule-Out 12/26/2024 12/26/2024 12/26/2024 5:38 PM EDT Enteric Rule-Out 12/27/2024 12/27/2024 12/28/2024 12:20 PM EDT Assessment Noted Time PHQ-9 Depression Total Score: 0 05/08/20 20 8:57 AM EST documented as of this encounter Care Teams Room Service Food Service Attendant Relationship Specialty Start Date End Date Gilbert Kline MD PCP - General Family Medicine 04/25/20 documented as of this encounter
--- OUTSIDE RECORDS SUMMARY | 2025-01-31 09:59 | XMS_ITS | Encounter Summary ---
Author Organization [facility] Address [facility]-[id number] [address] [place] [address] Care Team Providers Care Electrical Controls Technician Name Role Phone Gilbert Kline MD Primary Care Provider [phone] Encounter Details Date Type Department Care Team (Latest Contact Info) Description 01/17/2025 Travel Social History Tobacco Use Types Packs/Day Years Used Date Smoking Tobacco: Never Smokeless Tobacco: Never Alcohol Use Standard Drinks/Week Comments Never 0 (1 standard drink = 0.6 oz pur e alcohol) [employer] Utilities Answer Date Recorded In the past 12 months has [employer], gas, oil, or water [employer] threatened to shut off services in your [...] Recorded Do you need help finding a [facility] career center and/or a training program? No [...] Description 03/15/2025 3:00 PM EDT Office Visit [facility] Pulmonary/Sleep Medicine [address] [facility] [place] [phone] Diane Khan DO [address] [address] 04/03/2025 8:00 PM EDT Clinical Support [facility] - Sleep Disorders [address] [place] [phone] documented as of this encounter Goals Goal [...] documented as of this encounter Care Teams Electrical Controls Technician Relationship Specialty Start Date End Date Gilbert Kline MD PCP - General Family Medicine 04/25/20 documented as of this encounter
--- OUTSIDE RECORDS SUMMARY | 2025-01-31 09:59 | XMS_ITS | Encounter Summary ---
Author Organization [facility] Address [facility] [place]-[id number] [address] [place] [address] Care Team Providers Care Hand Expansion Envelope Maker Name Role Phone Gilbert Kline MD Primary Care Provider [phone] Encounter Details Date Type Department Care Team (Latest Contact Info) Description 01/22/2025 Travel Social History Tobacco Use Types Packs/Day Years Used Date Smoking Tobacco: Never Smokeless Tobacco: Never Alcohol Use Standard Drinks/Week Comments Never 0 (1 standard drink = 0.6 oz pur e alcohol) [employer] Utilities Answer Date Recorded In the past 12 months has [employer], gas, oil, or water [employer] threatened to shut off services in your [...] Recorded Do you need help finding a [facility] career center and/or a training [...] Description 03/15/2025 3:00 PM EDT Office Visit [facility] Pulmonary/Sleep Medicine [address] [facility] [place] [phone] Diane Khan DO [address] [address] 04/03/2025 8:00 PM EDT Clinical Support [facility] - Sleep Disorders [address] [place] [phone] documented as of this encounter Goals Goal [...] documented as of this encounter Care Teams Hand Expansion Envelope Maker Relationship Specialty Start Date End Date Gilbert Kline MD PCP - General Family Medicine 04/25/20 documented as of this encounter
--- OUTSIDE RECORDS SUMMARY | 2025-01-31 09:59 | XMS_ITS | Encounter Summary ---
Author Organization [employer] [facility] Address [facility]-[id number] [address] [place] [address] Care Team Providers Care Binder Coverstitch Name Role Phone Gilbert Kline MD Primary Care Provider [phone] Encounter Details Date Type Department Care Team (Late st Contact Info) Description 01/19/2025 Orders Only [facility] Pulmonary/Sleep Medicine [address] [place] [address] Alyssa Helm Sleep related hypoventilation in conditions classified elsewhere (Primary Dx); PATTI (obstructive sleep apnea) Social History Tobacco Use Types Packs/Day Years Used Date Smoking Tobacco: Never Smokeless Tobacco: Never Alcohol Use Standard Drinks/Week Comments Never 0 (1 standard drink = 0.6 oz pur e alcohol) [facility] Utilities Answer Date Recorded In [...] Recorded Do you need help finding a [facility] career center and/or a training program? [...] 03/15/2025 3:00 PM EDT Office Visit [facility] Pulmonary/Sleep Medicine [address] [facility] [place] [phone] Diane Khan, DO [address] [id number] 04/03/2025 8:00 PM EDT Clinical Support [facility] - Sleep Disorders [address] [place] [phone] documented as of this encounter Goals Goal Patient Goal Type Associated Problems Recent Progress Patient-Stated? Author Home with self care General Yes Conchita Levine, RN Note: Evaluation of progress towards goal: Patient plans to return to home with self care when he is improved. documented as of this encounter Visit Diagnoses Diagnosis Sleep related hypoventilation in conditions classified elsewhere- Primary PATTI (obstructive sleep apnea) Obstructive sleep apnea (adult) (pediatric) documented in this encounter Additional Health Concerns Assessment Noted Time PHQ-9 Depression Total Score: 0 06/24/20 20 6:36 PM EST documented as of this encounter Care Teams Binder Coverstitch Relationship Specialty Start Date End Date Gilbert Kline MD PCP - General Family Medicine 04/25/20 documented as of this encounter
--- OUTSIDE RECORDS SUMMARY | 2025-01-31 09:59 | XMS_ITS | Clinical Summary ---
Author Organization [facility] Address [address] [place] [address] Care Team Providers Care Medicare Compliance Auditor Name Role Phone Unavailable Primary Care Provider [...]
--- OUTSIDE RECORDS SUMMARY | 2025-01-31 09:59 | XMS_ITS | Clinical Summary ---
Author Organization [employer] Address [id number] [address] [place] [address] Care Team Providers Care Consumer Marketing Analyst Name Role Phone Gilbert Kline MD Primary Care Provider [phone] Allergies Active Allergy Reactions Criticality Noted Date Comments Morphine Itching 01/28/2018 Medications benzonatate (TESSALON PERLES) 100 mg capsule Take 1 capsule (100 mg total) by mouth 3 (three) times a day as needed for cough. 20 capsule 5 Active predniSONE (DELTASONE) 10 mg tablet 3 tabs for 3 days, 2 tabs for 3 days, 1 tab for 3 days 18 tablet 5 Active Additional Information Patient not taking.Reported on 01/17/2025 hydrOXYzine (ATARAX) 25 mg tablet Take 1 tablet (25 mg total) by mouth once as needed for anxiety. 5 Active ketoconazole (NIZORAL) 2 % cream Apply 1 Application topically in the morning. 5 Active doxycycline (VIBRAMYCIN) 100 mg capsule Take 1 capsule (100 mg total) by mouth in the morning and 1 capsule (100 mg total) before bedtime. Do all this for 7 days. 14 capsule 5 01/09/20 25 guaiFENesin (MUCINEX) 600 mg tablet extended release 12hr Take 1 tablet (600 mg total) by mouth every 12 (twelve) hours for 7 days. 14 tablet 5 01/09/20 25 Active Problems Problem Noted Date Diagnosed Date Intestinal infection due to enteropathogenic E. coli 12/28/2024 Acute respiratory failure with hypoxia and hyper capnia 12/27/2024 Chest pain on breathing 12/27/2024 Elevated LFTs 12/27/2024 Hypoxia 12/26/2024 Severe obesity (BMI >= 40) 12/26/2024 Claustrophobia 12/26/2024 Deviated nasal septum 12/26/2024 Elevated blood pressure read ing without diagnosis of hypertension 12/26/2024 Gout 12/26/2024 Hypertrophy of nasal turbinates 12/26/2024 Increased frequency of urination 12/26/2024 Migraine headache 12/26/2024 Morbid obesity 12/26/2024 Neuropathy 12/26/2024 Severe major depression 12/26/2024 Parainfluenza 12/26/2024 Failure of outpatient treatment 12/26/2024 KATRIN (acute kidney injury) 12/26/2024 Hypomagnesemia 12/26/2024 Bronchitis 12/26/2024 Acute diarrhea 12/26/2024 GERD (gastroesophageal reflux disease) Lumbosacral radiculopathy 03/21/2021 Cyst of mandible 12/24/2020 S/P UPPP (uvulopalatopharyngoplasty) 07/01/2020 S/P nasal septoplasty 07/01/2020 Obstructive sleep apnea 06/24/2020 Obstructive sleep apnea syndrome 04/25/2020 Hearing loss 04/25/2020 Encounters Date Type Department Care Team Description 01/26/2025 Telephone [facility] -Sleep Disorders Center [address] [place] [phone] Gilbert Kline MD Sleep Lab (BiPAP) 01/22/2025 11:25 AM EDT - 01/22/2025 11:59 PM EDT Hospital Encounter [facility] - Pulmonary Function [address] [place] [phone] Diane Khan, Hypoxia Discharge Disposition: Home 01/22/2025 Travel 01/19/2025 Orders Only [facility] Pulmonary/Sleep Medicine [address] [place] [phone] Alyssa Helm Sleep related hypoventilation in conditions classified elsewhere (Primary Dx); PATTI (obstructive sleep apnea) 01/18/2025 Telephone [facility] [address] [place] [phone] Kiya Dumont MD 01/17/2025 8:00 PM EDT Clinical Support [facility] - Sleep Disorders [address] [place] [phone] Deepika Denis APRN-MENTAL HEALTH ASSOCIATE Obstructive sleep apnea 01/17/2025 Travel 01/02/2025 [facility] [address] [place] [phone] Alyssa Helm 12/28/2024 Telephone [facility] - Sleep Disorders [address] [place] [phone] Transcribe, Orders Support User Sleep Lab (Split night) 12/27/2024 Telephone [facility] - Diabetes [address] [facility] [address] [place] [phone] Kiera Kidd CMA 12/26/2024 1:45 PM EDT - 12/31/2024 1:05 PM EDT Hospital Encounter [facility] - [address] Med [address] [place] [phone] Pavan Biggs MD Obstructive sleep apnea (Primary Dx); Severe obesity (BMI >= 40) ([facility]); Acute respiratory failure with hypoxia and hypercapnia ([facility]); Bronchitis; Parainfluenza Discharge Disposition: Home 12/26/2024 Travel 12/25/2024 11:37 PM EDT - 12/26/2024 1:00 PM EDT Emergency [facility] - Emergency [address] [place] [phone] Wilner Capps MD Muhammad, Ruqiyya T, MD Hypoxia (Primary Dx); Bronchitis with bronchospasm Discharge Disposition: Another Hospital 12/25/2024 Travel from Last 3 Months Family History Medical History Relation Name Comments Heart disease Father COPD Mother Cancer Mother mesothemlioma Stroke Mother Relation Name Status Comments Father Mother Social History Tobacco Use Types Packs/Day Years Used Date Smoking Tobacco: Never Smokeless Tobacco: Never Alcohol Use Standard Drinks/Week Comments Never 0 (1 standard drink = 0.6 oz pur e alcohol) [facility] Utilities Answer Date Recorded In [...] Recorded Do you need help finding a [facility] career center and/or a training program? [...] Sign Reading Time Taken Comments Blood Pressure 127/84 12/31/2024 9:43 AM EDT Pulse 71 12/31/2024 9:43 AM EDT Temperature 36.4 C (97.6 F) 12/31/2024 9:43 AM EDT Respiratory Rate 16 12/31/2024 9:43 AM EDT Oxygen Saturation 93% 12/31/2024 9:43 AM EDT Inhaled Oxygen Concentration - - Weight 153.8 kg (339 lb) 01/17/2025 8:23 PM EDT Height 175.3 cm (5' 9 ) 01/17/2025 8:23 PM EDT Body Mass Index 50.06 01/17/2025 8:23 PM EDT Plan of Treatment Upcoming Encounters Date Type Department Care Team (Late st Contact Info) Description 03/15/2025 3:00 PM EDT [facility] [address] [place] [address] Diane Khan DO [address] [address] 04/03/2025 8:00 PM EDT Clinical Support [facility] - Sleep Disorders [address] [place] [phone] Health Maintenance Due Date Last Done Comments Depression Screening 1978 Adult BMI Follow Up Plan 1984 DTaP,Tdap and Td Vaccines (1 - Tdap) 1985 Zoster (Shingles) Vaccine (1 of 2) 2016 COVID-19 Vaccine (4 - 2023-2 5 season) 2024 05/07/2021, 07/31/2020, 07/10/2020 Influenza Vaccine 02/26/2025 04/14/2016, 04/18/2015 Adult BMI Screening 01/17/2026 01/17/2025 Tobacco Screening 01/17/2026 01/17/2025 Goals Goal Patient Goal Type Associated Problems Recent Progress Patient-Stated? Author Home with self care General Yes Conchita Levine, RN Note: Evaluation of progress towards goal: Patient plans to return to home with self care when he is improved. Medical Devices Implanted Type Area Fire Alarm Inspector Device Identifier Shelf Expiration Date Model / Serial / Lot Sys Tng Susp Adj Kntls Bn Anch - Sna - [id number] Implanted:Qty: 1 on 06/24/2020 by Demario Colindres MD PhD at [facility] Other Implant Neck [employer] 08/25/2021 [id number] / [id number] / [id number] Procedures Procedure Name Priority Date/Time Associated Diagnosis Comments SPLIT NIGHT SLEEP STUDY Routine 01/18/20 8:26 PM EDT Obstructive sleep apnea OXYGEN THERAPY Routine 12/31/2024 8:26 AM EDT CBC WITH AUTO DIFFERENTIAL Routine 12/31/2024 6:25 AM EDT MAGNESIUM Routine 12/31/2024 6:25 AM EDT COMPREHENSIVE METABOLIC PANEL Routine 12/31/2024 6:25 AM EDT OXYGEN THERAPY, HIGH FLOW NASAL CANNULA (HFNC) Routine 12/30/2024 8:00 AM EDT CBC WITH AUTO DIFFERENTIAL Routine 12/30/2024 5:23 AM EDT MAGNESIUM Routine 12/30/2024 5:23 AM EDT COMPREHENSIVE METABOLIC PANEL Routine 12/30/2024 5:23 AM EDT OXYGEN THERAPY, HIGH FLOW NASAL CANNULA (HFNC) Routine 12/30/2024 4:00 AM EDT OXYGEN THERAPY, HIGH FLOW NASAL CANNULA (HFNC) Routine 12/30/2024 12:01 AM EDT OXYGEN THERAPY, HIGH FLOW NASAL CANNULA (HFNC) Routine 12/29/2024 8:00 PM EDT OXYGEN THERAPY, HIGH FLOW NASAL CANNULA (HFNC) Routine 12/29/2024 4:00 PM EDT OXYGEN THERAPY, HIGH FLOW NASAL CANNULA (HFNC) Routine 12/29/2024 12:00 PM EDT OXYGEN THERAPY, HIGH FLOW NASAL CANNULA (HFNC) Routine 12/29/2024 8:00 AM EDT CBC WITH AUTO DIFFERENTIAL Routine 12/29/2024 5:04 AM EDT MAGNESIUM Routine 12/29/2024 5:04 AM EDT COMPREHENSIVE METABOLIC PANEL Routine 12/29/2024 5:04 AM EDT HOME O2 EVALUATION Routine 12/28/2024 8: 08 AM EDT BLOOD GAS, VENOUS Routine 12/28/2024 7:1 2 AM EDT CBC WITH AUTO DIFFERENTIAL Routine 12/28/2024 6:02 AM EDT MAGNESIUM Routine 12/28/2024 6:02 AM EDT COMPREHENSIVE METABOLIC PANEL Routine 12/28/2024 6:02 AM EDT HEPATITIS PANEL, ACUTE Add-On 6:00 AM EDT GI PANEL STOOL PATHOGEN PANEL Routine 12/27/2024 9:30 PM EDT BLOOD GAS, VENOUS Routine 12/27/2024 12: 55 PM EDT TROP I, HIGH SENSITIVITY 1 HOUR STAT 12/27/2024 12:47 PM EDT VASC VENOUS DUPLEX LOWER BILATERAL Routine 12/27/2024 12:15 PM EDT OXYGEN THERAPY, HIGH FLOW NASAL CANNULA (HFNC) Routine 12/27/2024 12:00 PM EDT ECG 12-LEAD Routine 12/27/2024 11:36 AM EDT TROPONIN I, HIGH SENSITIVITY 0 HOUR STAT 12/27/2024 11:33 AM EDT TROPONIN I, HIGH SENSITIVITY 0 HOUR STAT 12/27/2024 11:33 AM EDT BLOOD GAS, ARTERIAL Routine 12/27/2024 1 0:45 AM EDT ECHO COMPLETE W CONTRAST Routine 025 9:50 AM EDT BRONCHOPULMONARY HYGIENE Routine 025 9:08 AM EDT OXYGEN THERAPY, HIGH FLOW NASAL CANNULA (HFNC) Routine 12/27/2024 8:00 AM EDT MAGNESIUM Routine 12/27/2024 7:19 AM EDT COMPREHENSIVE METABOLIC PANEL Routine 12/27/2024 7:19 AM EDT CBC WITH AUTO DIFFERENTIAL Routine 12/27/2024 5:55 AM EDT OXYGEN THERAPY, HIGH FLOW NASAL CANNULA (HFNC) Routine 12/27/2024 4:00 AM EDT OXYGEN THERAPY, HIGH FLOW NASAL CANNULA (HFNC) Routine 12/27/2024 12:01 AM EDT OXYGEN THERAPY, HIGH FLOW NASAL CANNULA (HFNC) Routine 12/26/2024 9:35 PM EDT OXYGEN THERAPY, HIGH FLOW NASAL CANNULA (HFNC) Routine 12/26/2024 9:35 PM EDT OXYGEN THERAPY, HIGH FLOW NASAL CANNULA (HFNC) Routine 12/26/2024 9:35 PM EDT OXYGEN THERAPY, HIGH FLOW NASAL CANNULA (HFNC) Routine 12/26/2024 9:35 PM EDT OXYGEN THERAPY, HIGH FLOW NASAL CANNULA (HFNC) Routine 12/26/2024 9:35 PM EDT OXYGEN THERAPY, HIGH FLOW NASAL CANNULA (HFNC) Routine 12/26/2024 9:35 PM EDT OXYGEN THERAPY, HIGH FLOW NASAL CANNULA (HFNC) Routine 12/26/2024 9:35 PM EDT BLOOD GAS, ARTERIAL Routine 12/26/2024 9 :14 PM EDT PULSE OXIMETRY, SPOT Routine 12/26/2024 2:14 AM EDT TROP I, HIGH SENSITIVITY 1 HOUR STAT 12/26/2024 1:[address] CTA CHEST STAT 12/26/2024 12:55 AM EDT BLOOD CULTURE STAT 12/26/2024 12:11 AM EDT TROPONIN I, HIGH SENSITIVITY 0 HOUR STAT 12/26/2024 12:05 AM EDT LACTATE W/ REFLEX STAT 12/26/2024 12: 05 AM EDT TROPONIN I, HIGH SENSITIVITY 0 HOUR STAT 12/26/2024 12:05 AM EDT MAGNESIUM STAT 12/26/2024 12:05 AM EDT D-DIMER STAT 12/26/2024 12:05 AM EDT COMPREHENSIVE METABOLIC PANEL STAT 12/26/2024 12:05 AM EDT B-TYPE NATRIURETIC PEPTIDE STAT 12/26/2024 12:05 AM EDT APTT STAT 12/26/2024 12:05 AM EDT PROTIME & INR STAT 12/26/2024 12:05 AM EDT CBC WITH AUTO DIFFERENTIAL STAT 12/26/2024 12:05 AM EDT BLOOD CULTURE STAT 12/26/2024 12:05 AM EDT XR CHEST 1 VW STAT 12/26/2024 12:00 AM EDT RESP PATHOGENS PANEL/SARS-COV-2 Routine 12/25/2024 11:58 PM EDT SARS/FLU A+B/RSV BY NAAT/MOLECULAR (M4RT COLLECTION TUBE) STAT 12/25/2024 11:58 PM EDT ECG 12-LEAD STAT 12/25/2024 11:44 PM EDT from Last 3 Months Results * Split Night Sleep Study (01/17/2025 8:26 PM EDT) 01/17/2025 8:26 PM EDT Narrative [facility] - 01/18/2025 1:16 PM EDT INTERPRETED Deepika Ragle PEER SUPPORT SPECIALIST-MENTAL HEALTH ASSOCIATE SLEEP CENTER ORDERABLES Fi nal Result [facility] * (ABNORMAL) CBC auto differential (12/31/2024 6:25 AM EDT) Only the most recent of6 resultswithin the time period is included. WBC 13.2(H) 4 - 11 x10E9/L 12/31/2024 6:43 AM EDT [facility] RBC Count 4.65 4.1 - 5.7 X10E12/L 12/31/2024 6:43 AM EDT [facility] Hemoglobin 14.3 13 - 17 g/dL 12/31/2024 6:43 AM T [facility] Hematocrit 43.0 39 - 50 % 12/31/2024 6:43 AM [facility] MCV 92 80 - 100 fL 12/31/2024 6:43 AM T [facility] MCH 30.8 27 - 34 pg 12/31/2024 6:43 AM EDT [facility] MCHC 33.3 32 - 36 g/dL 12/31/2024 6:43 AM T [facility] RDW 14.4 11.5 - 15 % 12/31/2024 6:43 AM T [facility] Platelet Count 203 150 - 450 X10E9/L 12/31/2024 6:43 AM T [facility] MPV 6.7(L) 7 - 12 fL 12/31/2024 6:43 AM T [facility] Neutrophils % 77.3 % 12/31/2024 6:43 AM EDT [facility] Lymphocytes % 15.5 % 12/31/2024 6:43 AM EDT [facility] Monocytes % 6.7 % 12/31/2024 6:43 AM EDT [facility] Eosinophils % 0.0 % 12/31/2024 6:43 AM EDT [facility] Basophils % 0.5 % 12/31/2024 6:43 AM T [facility] Neutrophils Absolute (A) 10.2(H) 1.5 - 6.6 10*3/uL 12/31/2024 6:43 AM EDT [facility] Lymphocytes Absolute 2.0 1.0 - 3.5 10*3/uL 12/31/2024 6:43 AM EDT [facility] Monocytes Absolute 0.9 0.0 - 0.9 10*3/uL 12/31/2024 6:43 AM EDT [facility] Eosinophils Absolute 0.0 0.0 - 0.4 10*3/uL 12/31/2024 6:43 AM EDT [facility] Basophils Absolute 0.1 0.0 - 0.2 10*3/uL 12/31/2024 6:43 AM EDT [facility] Differential Type AUTOMATED DIFFERENTIAL 12/31/2024 6:43 AM EDT [facility] Blood Venous blood / Unknown Venipuncture / Unknown 12/31/2024 6:25 AM EDT 12/31/2024 6:29 AM EDT Deepika Denis PEER SUPPORT SPECIALIST-MENTAL HEALTH ASSOCIATE LAB BLOOD ORDERABLES Final Result Performing Organization Address City/[facility]/[place] [address], [place] * Magnesium (12/31/2024 6:25 AM EDT) Only the most recent of6 resultswithin the time period is included. MAGNESIUM 2.3 1.8 - 2.6 mg/dL 12/31/2024 6:58 AM EDT [facility] Blood Venous blood / Unknown Venipuncture / Unknown 12/31/2024 6:25 AM EDT 12/31/2024 6:29 AM EDT [facility] Adeel PEER SUPPORT SPECIALIST-MENTAL HEALTH ASSOCIATE LAB BLOOD ORDERABLES Final Result Performing Organization Address City/[facility]/[place] [address], [place] * (ABNORMAL) Comprehensive metabolic panel (12/31/2024 6:25 AM EDT) Only the most recent of6 resultswithin the time period is included. SODIUM 141 134 - 146 mmol/L 12/31/2024 6:58 AM [facility] POTASSIUM 4.6 3.5 - 5.0 mmol/L 12/31/2024 6:58 AM [facility] CHLORIDE 103 98 - 109 mmol/L 12/31/2024 6:58 AM [facility] CARBON DIOXIDE 33(H) 22 - 32 mmol/L 12/31/2024 6:58 AM [facility] ANION GAP 5 5 - 15 mmol/L 12/31/2024 6:58 AM [facility] BLOOD UREA NITROGEN 23 5 - 23 mg/dL 12/31/2024 6:58 AM [facility] CREATININE 1.06 0.70 - 1.20 mg/dL 12/31/2024 6:58 AM [facility] Comment:METHOD TRACEABLE TO IDWV STANDARD GLUCOSE 124(H) 65 - 99 mg/dL 12/31/2024 6:58 AM [facility] CALCIUM 8.5 8.5 - 10.5 mg/dL 12/31/2024 6:58 AM [facility] TOTAL PROTEIN 5.6(L) 6.0 - 8.0 g/dL 12/31/2024 6:58 AM [facility] ALBUMIN 2.9(L) 3.2 - 5.3 g/dL 12/31/2024 6:58 AM [facility] ALKALINE PHOSPHATASE 44 39 - 130 U/L 12/31/2024 6:58 AM [facility] AST 25 <=41 U/L 12/31/2024 6:58 AM [facility] ALT 47(H) <=40 U/L 12/31/2024 6:58 AM [facility] BILIRUBIN,TOTAL 0.8 0.3 - 1.2 mg/dL 12/31/2024 6:58 AM [facility] EGFR Non-Race Dependent 81 >=60 ml/min/1.7 3sq.m 12/31/2024 6:58 AM [facility] Comment: eGFR not reported due to non-numeric value for Creatinine. Reported eGFR is based on the CKD-EPI 2020 equation that does not use a race coefficient. Blood Venous blood / Unknown Venipuncture / Unknown 12/31/2024 6:25 AM EDT 12/31/2024 6:29 AM EDT us Deepika Denis PEER SUPPORT SPECIALIST-MENTAL HEALTH ASSOCIATE LAB BLOOD ORDERABLES Final Result [address] [address], * (ABNORMAL) Blood gas, venous (12/28/2024 7:12 AM EDT) Only the most recent of2 resultswithin the time period is included. Sample type VENOUS 12/28/2024 7:14 AM EDT [facility] pH, Venous 7.321 7.320 - 7.420 12/28/2024 7:14 AM T [facility] pCO2, Venous 66.4(H) 35.0 - 50.0 mmHg 12/28/2024 7:14 AM EDT [facility] pO2, Venous 103(H) 30 - 50 mmHg 12/28/2024 7:14 AM [facility] Base, Excess 5.0(H) 0.0 - 2.0 mmol/L 12/28/2024 7:14 AM [facility] HCO3, Venous 34.3(H) 20.0 - 24.0 mmol/L 12/28/2024 7:14 AM [facility] %O2 Saturation, Venous 97.0 % 12/28/2024 7:14 AM EDT [facility] Rafael's test N/A 12/28/2024 7:14 AM [facility] Sample site N/A 12/28/2024 7:14 AM [facility] Insp. O2 conc. 8 % 12/28/2024 7:14 AM T [facility] Source Of Oxygen NC 12/28/2024 7:14 AM [facility] Venous blood (substance) Venous blood / Unknown 12/28/2024 7:12 AM EDT 12/28/2024 7:14 AM EDT us Pavan Biggs MD LAB BLOOD ORDERABLES Final Resu lt [address] [address], [place] * Hepatitis panel, acute (12/28/2024 6:00 AM EDT) Pathologist [facility] HEPATITIS B SURF AG Non-Reacti ve Non-Reacti ve 12/28/2024 11:28 AM EDT [facility] HEPATITIS A IGM Non-Reacti ve Non-Reacti ve 12/28/2024 11:28 AM EDT [facility] HEPATITIS B CORE IGM Non-Reacti ve Non-Reacti ve 12/28/2024 11:28 AM EDT [facility] ANTI HCV W/PCR REFLX Non-Reacti ve Non-Reacti ve 12/28/2024 11:28 AM EDT [facility] Comment: If recent infection suspected, recommend repeat testing (>2 months). Rmdhtq-il-jbahke ratio is <1.0. Blood Venous blood / Unknown Venipuncture / Unknown 12/28/2024 6:00 AM EDT 12/28/2024 6:38 AM EDT Deepika Denis APRN-MENTAL HEALTH ASSOCIATE LAB BLOOD ORDERABLES Final Result [facility] [address] [place] [address], [place] [phone] * (ABNORMAL) GI Panel(stool pathogen panel) (12/27/2024 9:30 PM EDT) CAMPYLOBACTER Not Detected Not Detected 12/28/2024 12:20 PM EDT [facility] PLESIOMONAS Not Detected Not Detected 12/28/2024 12:20 PM EDT [facility] SALMONELLA Not Detected Not Detected 12/28/2024 12:20 PM EDT [facility] VIBRIO Not Detected Not Detected 12/28/2024 12:20 PM EDT [facility] VIBRIO CHOLERAE Not Detected Not Detected 12/28/2024 12:20 PM EDT [facility] Y. ENTEROCOLITICA Not Detected Not Detected 12/28/2024 12:20 PM EDT [facility] AGGREGATIVE E COLI Not Detected Not Detected 12/28/2024 12:20 PM EDT [facility] PATHOGENIC E COLI Detected(A) Not Detected 12/28/2024 12:20 PM T [facility] Comment:Enteropathogenic Esc herichia coli TOXIGENIC E COLI Not Detected Not Detected 12/28/2024 12:20 PM EDT [facility] SHIGA TOXIN E COLI Not Detected Not Detected 12/28/2024 [facility] SHIGELL[facility]-E COLI Not Detected Not Detected 12/28/2024 12:20 PM EDT [facility] CRYPTOSPORIDIUM Not Detected Not Detected 12/28/2024 12:20 PM [facility] CYCLOSPORA Not Detected Not Detected 12/28/2024 12:[facility] E HISTOLYTICA Not Detected Not Detected 12/28/2024 12:20 PM [facility] GIARDIA LAMBLIA Not Detected Not Detected 12/28/2024 12:20 PM T [facility] ADENOVIRUS Not Detected Not Detected 12/28/2024 12:20 PM [facility] ASTROVIRUS Not Detected Not Detected 12/28/2024 12:20 PM [facility] NOROVIRUS Not Detected Not Detected 12/28/2024 12:20 PM T [facility] ROTAVIRUS A Not Detected Not Detected 12/28/2024 12:20 PM T [facility] SAPOVIRUS Not Detected Not Detected 12/28/2024 12:20 PM [facility] Stool Feces / Unknown 12/27/2024 9 :30 PM EDT 12/28/2024 2:13 AM EDT us Deepika Denis PEER SUPPORT SPECIALIST-MENTAL HEALTH ASSOCIATE BODY FLUIDS AND STOOLS ORD ERABLES Final Result [facility] [address] [place] [address], [place] [phone] * Troponin I, High Sensitivity 1 Hour (12/27/2024 12:47 PM EDT) Only the most recent of2 resultswithin the time period is included. TROPONIN I, HIGH SENSITIVITY 13 <21 ng/L 12/27/2024 1:18 PM EDT [facility] Blood Venous blood / Unknown Venipuncture / Unknown 12/27/2024 12:47 PM EDT 12/27/2024 12:50 PM EDT Deepika Denis PEER SUPPORT SPECIALIST-[facility] LAB BLOOD ORDERABLES Final Result Performing Organization Address [facility] Co de Phone Number [facility] [address] [place] [address], [place] * Vas venous duplex lwr bilateral (12/27/2024 12:15 PM EDT) Anatomical Region Laterality Modality Vascular Bilateral Ultrasound 12/27/2024 12:2 7 PM EDT Narrative 12/27/2024 6:08 PM EDT Right: Portable lower extremity deep vein thrombosis (DVT) exam performed. Common femoral, femoral, popliteal and deep calf muscle veins are compressible without intraluminal content. Spontaneous, common femoral, femoral and popliteal spectral Doppler signals. Evaluation of superficial veins was not performed. Left: Portable lower extremity deep vein thrombosis (DVT) exam performed. Common femoral, femoral, popliteal and deep calf muscle veins are compressible without intraluminal content. Spontaneous, common femoral, femoral and popliteal spectral Doppler signals. Evaluation of superficial veins was not performed. General: In-patient, bedside examination. Conclusions: BILATERAL: NO EVIDENCE of deep or superficial vein thrombosis of the lower extremities with limited visualization of lower extremity vein segments as described above. Recommendations: Any questions prior to finalization, please call the reading physician during normal business hours at the phone number beside their name. Procedure Note Jamel Bobo MD - 12/27/2024 Right: Portable lower extremity deep vein thrombosis (DVT) exam performed.Common femoral, femoral, popliteal and deep calf muscle veins arecompressible without intraluminal content. Spontaneous, common femoral,femoral and popliteal spectral Doppler signals. Evaluation of superficial veins was not performed. Left: Portable lower extremity deep vein thrombosis (DVT) exam performed.Common femoral, femoral, popliteal and deep calf muscle veins arecompressible without intraluminal content. Spontaneous, common femoral,femoral and popliteal spectral Doppler signals. Evaluation of superficial veins was not performed. General: In-patient, bedside examination. Conclusions: BILATERAL: NO EVIDENCE of deep or superficial veinthrombosis of the lower extremities with limited visualization of lowerextremity vein segments as described above. Recommendations: Any questions prior to finalization, please call thereading physician during normal business hours at the phone number [email or web address] name. Deepika GAR CV VASCULAR ORDERABLES Fin al Result * ECG 12 lead (12/27/2024 11:36 AM EDT) Only the most recent of2 resultswithin the time period is included. 12/27/2024 11:3 6 AM EDT Narrative TRACEMASTERVUE - 12/27/2024 2:56 PM EDT Deepika GAR ECG ORDERABLES Final Resu lt TRACEMASTERVUE * Troponin I, High Sensitivity 0 Hour (12/27/2024 11:33 AM EDT) Only the most recent of2 resultswithin the time period is included. TROPONIN I, HIGH SENSITIVITY 12 <21 ng/L 12/27/2024 12:08 PM EDT [facility] Blood Venous blood / Unknown Venipuncture / Unknown 12/27/2024 11:33 AM EDT 12/27/2024 11:35 AM EDT Deepika GAR LAB BLOOD ORDERABLES Final Result [address] [address], [place] * (ABNORMAL) Blood Gas, Arterial (12/27/2024 10:45 AM EDT) Only the most recent of2 resultswithin the time period is included. Sample type ARTERIAL 12/27/2024 10:50 AM EDT [facility] pH, Arterial 7.301(L) 7.350 - 7.450 12/27/2024 10:50 AM EDT [facility] pCO2, Arterial 54.1(H) 35.0 - 45.0 mmHg 12/27/2024 10:50 AM EDT [facility] PO2, Arterial 108(H) 80 - 100 mmHg 12/27/2024 10:50 AM [facility] Base, Deficit -1.0(L) 0.0 - 2.0 mmol/L 12/27/2024 10:50 AM [facility] HCO3, Arterial 26.7(H) 22.0 - 26.0 mmol/L 12/27/2024 10:50 AM EDT [facility] %O2 Saturation, Arterial 97.0 >90.0 % 12/27/2024 10:50 AM [facility] Rafael's test Pass 12/27/2024 10:50 AM [facility] SPO2 108 % 12/27/2024 10:50 AM [facility] Sample site L Rad 12/27/2024 10:50 AM [facility] Insp. O2 conc. 52 % 12/27/2024 10:50 AM T [facility] Source Of Oxygen NC 12/27/2024 10:50 AM [facility] Arterial site (attribute) (Blood, Arterial) 12/27/2024 10:45 AM EDT 12/27/2024 10:50 AM EDT us Pavan Biggs MD LAB BLOOD ORDERABLES Final Resu lt [address] [address], [place] * Echo complete W/ contrast (12/27/2024 9:50 AM EDT) LVOT stroke volume 72.39 ml XCELERA FS 30 28 - 44 % [facility]A LVIDd 4.00 14.33 - 19.92 cm XCELERA LVIDs 2.80 8.08 - 12.25 cm XCELERA IVS 1.20 0.6 - 1.1 cm XCELERA PW 1.30 0.6 - 1.1 cm XCELERA LVOT diameter 2.10 cm XCELERA TDI 9.25 cm/s XCELERA MV TDI E' (medial) 7.94 cm/s XCELERA LA Volume Index 34.3 mL/m2 X[facility]ELERA E/A ratio 0.85 XCELERA E wave deceleration time 176.00 msec XCELERA MV Peak E Larry 68.10 cm/s XCELERA MV Peak A Larry 80.10 cm/s XCELERA LA size 5.10 cm XCELERA Aortic root 4.00 cm XCELERA LA volume 93.20 cm3 XCELERA RV diastolic dimension (basal) 40.0 mm XCELERA TAPSE 2.26 cm XCELERA AV peak larry 141.00 cm/s X[facility]ERA LVOT peak larry 1.08 m/s XCELERA AV VTI 24.80 cm X[facility]A LVOT peak VTI 20.90 cm XCELERA AV mean gradient 4.00 mmHg XCELERA AV peak gradient 7.95 mmHg XCELERA AV valve area 2.92 XCELERA Valve area - Index 1.1 XCELERA MV pressure 1/2 time 52.00 ms XCELERA MV valve area p 1/2 method 4.23 cm2 XCELERA TR Peak Larry 2.3 m/s XCELERA TR peak gradient 22.00 mmHg XCELERA LV ESV A2C 79.00 mL XCELERA LV ESV A4C 89.10 mL XCELERA LV RWT 2D 65.00 XCELERA AV Velocity Ratio 0.84 [facility] Left Ventricle Mass 175.85201 [id number] 3 g XCELERA Interventricular Septum Diastolic Thickness by 2D 12 cm XCELERA TASV 14.8 cm/s XCELERA RA 2D Volume 21.2 mL/m2 XCELERA Est. RA pressure 8 mmHg XCELERA RA area 19.0 cm2 XCELERA RV Peak Systolic Pressure 30 mmHg XCELERA ZLVIDS -10.02 XCELERA ZLVIDD -14.41 [facility]A Energy loss index 32.28 [facility] Anatomical Region Laterality Modality Chest N/A Ultrasound Narrative 12/27/2024 4:04 PM EDT Left Ventricle: Left ventricle appears normal in size. Systolic function is normal with an ejection fraction of 55-60%. No obvious regional wall motion abnormalities. Left Ventricle Left ventricle appears normal in size. There is mild concentric increased wall thickness/hypertrophy. Systolic function is normal with an ejection fraction of 55-60%. No obvious regional wall motion abnormalities. Diastolic function assessment is indeterminate. Lateral E' is 9.25 cm/s. Medial E' is 7.94 cm/s. Right Ventricle Right ventricular size appears normal. The right ventricular basal diameter is 40.0 mm. Systolic function is normal. Left Atrium Left atrium volume index is upper limits normal. The left atrial volume index is 34.3 mL/m2. Right Atrium Right atrium is upper limits normal in size. The right atrial area is 19.0 cm2. IVC/SVC IVC is not well visualized. Mitral Valve Mitral valve structure is normal. There is trace to mild regurgitation. There is no evidence of mitral valve stenosis. Tricuspid Valve Tricuspid valve appears to be normal. There is trace to mild regurgitation. There is no evidence of tricuspid valve stenosis. RVSP calculated at 30 mmHg. RVSP is based on RA pressure of 8 mmHg. Aortic Valve The aortic valve was not well visualized to determine leaflets. There is no regurgitation or stenosis. Pulmonic Valve The pulmonic valve was not well visualized. There is trace regurgitation. There is no evidence of pulmonic valve stenosis. Ascending Aorta The aortic root is upper limits normal in size. Pericardium Pericardium was not well visualized. Study Details A complete echo was performed using complete 2D, color flow Doppler and spectral Doppler. Definity study was performed. The study was difficult due to patient's body habitus, poor acoustic windows and respiration. Wall Scoring Baseline Score Index: 1.00 The left ventricular wall motion is normal. us Deepika Denis PEER SUPPORT SPECIALIST-MENTAL HEALTH ASSOCIATE CV ECHO ORDERABLES Final R esult * CT angiogram chest (12/26/2024 12:55 AM EDT) Anatomical Region Laterality Modality Lung, Body, Chest, Vascular, Body Covera N/A Computed Tomography 12/26/2024 1:08 AM EDT Narrative 12/26/2024 1:12 AM EDT STUDY: CT angiography of the chest with [...] Barrett Soria MD on 12/26/2024 1:12 AM Procedure Note Barrett Soria MD - 12/26/2024 STUDY: CT angiography of the chest with contrast CLINICAL HISTORY: Hypoxia, elevated d-dimer. COMPARISON: None. TECHNIQUE: CT angiography of the chest was performed utilizing thinsection axial images with coronal and sagittal reformatted imagesgenerated. 3-D maximum intensity projection coronal and sagittalreformatted images generated and reviewed. Images acquired following theuneventful administration of 100 cc Omnipaque 350 nonionic intravenous contrast. Automated exposurecontrol was utilized. FINDINGS: No significant findings at the thoracic inlet, body wall. Hepaticsteatosis. Intramural fatty deposition within the distal esophagus. Severe calcified coronary arterial disease. Nonenlarged heart. Patentgreat vessels. No acute aortic pathology. Suboptimal pulmonary arterial opacification. No acute pulmonary embolus tothe lumbar level. Bronchial wall thickening, which may be seen in thesetting of airway infection/inflammation. Mosaic attenuation of the lungs,most often seen in the setting of small airways disease.. IMPRESSION: 1. Suboptimal pulmonary arterial opacification. No pulmonary embolus tothe lobar level. 2. Bronchial wall thickening, which may be seen in the setting of airwayinfection/inflammation. Mosaic attenuation of the lungs, most often seenin the setting of small airways disease. All CT scans at this facility use dose modulation, iterativereconstruction, and/or weight based dosing when appropriate to reduceradiation dose to as low as reasonably achievable. Finalized by Barrett Soria MD on 12/26/2024 1:12 AM Jose Alfredo Mcmullen MD IMG CT ORDERABLES Final Result * Blood culture (12/26/2024 12:11 AM EDT) Only the most recent of2 resultswithin the time period is included. [facility] CULTURE RESULTS NO GROWTH 5 DAYS 12/31/2024 11:01 AM EDT [facility] Blood Venous blood / Unknown Venipuncture / Unknown 12/26/2024 12:11 AM EDT 12/26/2024 12:13 AM EDT Narrative [facility] - 12/31/2024 11:01 AM EDT Suboptimal volume of blood collected, Results may be affected. Wilner Capps MD MICROBIOLOGY - GENERAL ORDERABL ES Final Result [facility] [address] [place] [address], [place] [phone] * Lactate w/ Reflex (12/26/2024 12:05 AM EDT) Pathologist [facility] LACTATE W/REFLEX 1.5 0.4 - 2.0 mmol/L 12/26/2024 12:29 AM EDT [facility] Blood Venous blood / Unknown Venipuncture / Unknown 12/26/2024 12:05 AM EDT 12/26/2024 12:13 AM EDT Narrative [facility] - 12/26/2024 12:29 AM EDT Result did not trigger repeat Lactate, re-order if needed. us Wilner Capps MD LAB BLOOD ORDERABLES Final Resu lt Performing Organization Address City/[facility]/ZIP Co de Phone Number [address] [place] [address], [place] * APTT (12/26/2024 12:05 AM EDT) APTT 31 26 - 37 sec 12/26/2024 12:25 AM EDT [facility] Blood Venous blood / Unknown Venipuncture / Unknown 12/26/2024 12:05 AM EDT 12/26/2024 12:13 AM EDT us Wilner Capps MD LAB BLOOD ORDERABLES Final Resu lt Performing Organization Address City/[facility]/ZIP Co de Phone Number [address] [place] [address], [place] * Protime & INR (12/26/2024 12:05 AM EDT) PROTIME 11.9 9.8 - 13.2 sec 12/26/2024 12:25 AM EDT [facility] INR 1.0 0.9 - 1.2 12/26/2024 12:25 AM EDT [facility] Blood Venous blood / Unknown Venipuncture / Unknown 12/26/2024 12:05 AM EDT 12/26/2024 12:13 AM EDT us Wilner Capps MD LAB BLOOD ORDERABLES Final Resu lt [address] [place] [address], [place] * (ABNORMAL) D-Dimer (12/26/2024 12:05 AM EDT) D DIMER 481(H) 1 - 255 ug/mL 12/26/2024 12:25 AM EDT [facility] Comment:Results >255 ng/mL D DU: Results may be indicative of the presence of VTE. The use of the Wells score and further diagnostic tests should be considered. Elevated D-Dimer levels can be associated with DIC, neoplasm, , trauma and liver disease. Elevated levels of rheumatoid factor may lead to an overestimation of the D-Dimer level. Blood Venous blood / Unknown Venipuncture / Unknown 12/26/2024 12:05 AM EDT 12/26/2024 12:13 AM EDT Wilner Capps MD LAB BLOOD ORDERABLES Final Resu lt Performing Organization Address [facility] Co de Phone Number [address] [place] [address], [place] * B-type natriuretic peptide (12/26/2024 12:05 AM EDT) Pathologist [facility] BNP 27 <=100 pg/mL 12/26/2024 12:45 AM EDT [facility] Blood Venous blood / Unknown Venipuncture / Unknown 12/26/2024 12:05 AM EDT 12/26/2024 12:13 AM EDT us Wilner Capps MD LAB BLOOD ORDERABLES Final Resu lt Performing Organization Address [facility] Co de Phone Number [address] [place] [address], [place] * X-ray chest 1 view (12/26/2024 12:00 AM EDT) Anatomical Region Laterality Modality Body, Chest N/A Computed Radiogr aphy 12/26/2024 12:1 9 AM EDT Narrative 12/26/2024 12:19 AM EDT HISTORY: Cough, wheezing, difficulty breathing COMPARISON: Chest x-ray 06/27/2020 FINDINGS: Frontal view of the chest was performed. Mild vascular congestion with pulmonary edema. Bibasilar atelectasis. No significant pleural effusion or pneumothorax. Stable cardiac silhouette. Cervical fusion hardware is intact. IMPRESSION: * Mild vascular congestion and pulmonary edema with bibasilar atelectasis. Finalized by Jr Cox MD on 12/26/2024 12:19 AM Procedure Note Jr Cox MD - 12/26/2024 HISTORY: Cough, wheezing, difficulty breathing COMPARISON: Chest x-ray 06/27/2020 FINDINGS: Frontal view of the chest was performed. Mild vascularcongestion with pulmonary edema. Bibasilar atelectasis. No significantpleural effusion or pneumothorax. Stable cardiac silhouette. Cervicalfusion hardware is intact. IMPRESSION: * Mild vascular congestion and pulmonary edema with bibasilaratelectasis. Finalized by Jr Cox MD on 12/26/2024 12:19 AM Wilner Capps MD IMG DIAGNOSTIC IMAGING ORDERABL ES Final Result * (ABNORMAL) Resp Pathogens Panel/SARS CoV-2 (12/25/2024 11:58 PM EDT) SARS COV 2 BY PCR Not Detected Not Detected 12/26/2024 11:18 AM EDT [facility] ADENOVIRUS Not Detected Not Detected 12/26/2024 11:18 AM EDT [facility] CORONAVIRUS 229E Not Detected Not Detected 12/26/2024 11:18 AM EDT [facility] CORONAVIRUS HKU1 Not Detected Not Detected 12/26/2024 11:18 AM EDT [facility] CORONAVIRUS NL63 Not Detected Not Detected 12/26/2024 11:18 AM EDT [facility] CORONAVIRUS OC43 Not Detected Not Detected 12/26/2024 11:18 AM EDT [facility] HUMAN METAPNEUVIRUS Not Detected Not Detected 12/26/2024 11:18 AM EDT [facility] RHINO/ENTEROVIRU S Not Detected Not Detected 12/26/2024 11:18 AM EDT [facility] INFLUENZA A Not Detected Not Detected 12/26/2024 11:18 AM EDT [facility] INFLUENZA B Not Detected Not Detected 12/26/2024 11:18 AM EDT [facility] PARAINFLUENZA 1 Not Detected Not Detected 12/26/2024 11:18 AM EDT [facility] PARAINFLUENZA 2 Not Detected Not Detected 12/26/2024 11:18 AM EDT [facility] PARAINFLUENZA 3 Detected(A) Not Detected 12/26/2024 11:18 AM EDT [facility] PARAINFLUENZA 4 Not Detected Not Detected 12/26/2024 11:18 AM EDT [facility] RESP SYNCYTIAL VIRUS Not Detected Not Detected 12/26/2024 11:18 AM EDT [facility] BORD PARAPERTUSSIS Not Detected Not Detected 12/26/2024 11:18 AM EDT [facility] BORDETELLA PERTUSSIS Not Detected Not Detected 12/26/2024 11:18 AM EDT [facility] CHLAM.PNEUMONIAE Not Detected Not Detected 12/26/2024 11:18 AM EDT [facility] MYCOPLASMA PNEUMONIAE Not Detected Not Detected 12/26/2024 11:18 AM EDT [facility] Swab Nasopharyngeal structure / Unknown 12/25/2024 11:58 PM EDT 12/26/2024 12:12 AM EDT [facility] - 12/26/2024 11:18 AM EDT The BioFire Respiratory Panel 2.1 (RP2.1) is a multiplexed [...] to perform high complexity or moderate complexity tests. SARS-CoV-2 RNA and nucleic acids from the other [...] other pathogens. The agent(s) detected by the viblaste RP2.1 may not be the definite cause of disease and clinical correlation with patient history and other diagnostic information is necessary to determine patient infection status. Negative results in the setting of a respiratory [...] a patient with possible respiratory tract infection. Blair Sharpe PEER SUPPORT SPECIALIST-MENTAL HEALTH ASSOCIATE MICROBIOLOGY - GENERAL OR DERABLES Final Result [facility] [address] [place] [address], * SARS/FLU A+B/RSV by NAAT/Molecular (M4RT Collection Tube) (12/25/2024 11:58 PM EDT) Pathologist [facility] FLU A PCR Negative Negative 12/26/2024 12:51 AM EDT [facility] FLU B PCR Negative Negative 12/26/2024 12:51 AM EDT [facility] RSV BY PCR Negative Negative 12/26/2024 12:51 AM EDT [facility] SARS COV 2 BY PCR Not Detected Not Detected 12/26/2024 12:51 AM EDT [facility] Swab Nasopharyngeal structure / Unknown 12/25/2024 11:58 PM EDT 12/26/2024 12:12 AM EDT [facility] - 12/26/2024 12:51 AM EDT The Xpert Xpress SARS-CoV-2/Flu/RSV Plus test is a rapid, [...] operators who are performing tests using either [employer] DX or [employer]ster systems and is limited to laboratories that [...] inhibition unable to be resolved with specimen repeat. Fact Sheet for Healthcare Providers: https://www.fda.gov/media/242200/download Fact Sheet for Patients: https://www.fda.gov/media/741188/download Wilner Capps MD MICROBIOLOGY - GENERAL ORDERABL ES Final Result [facility] [address] [place] [address], [place] from Last 3 Months Insurance [employer] Advance Directives * Full Code (Latest Code Status on File) Date Activated Date Inactivated Comments 12/26/2024 2:34 PM 12/31/2024 3:28 PM * Full Code Date Activated Date Inactivated Comments 12/26/2024 2:14 AM 12/26/2024 1:45 PM * Full Code Date Activated Date Inactivated Comments 06/24/2020 3:06 PM 06/27/2020 5:51 PM Care Teams Consumer Marketing Analyst Relationship Specialty Start Date End Date Gilbert Kline MD PCP - General Family Medicine 04/25/20
--- OUTSIDE RECORDS SUMMARY | 2025-01-31 09:59 | XMS_ITS | Clinical Summary ---
Author Organization [facility] Address [address] [place], [place] [id number] Care Team Providers Care Laborer Driver Name Role Phone Gilbert Kline MD Primary Care Provider [phone] Allergies Active Allergy Reactions Criticality Noted Date [...] N ot on file 06/04/2020 Data from: [email or web address].edu/. Last address used for calculation Not [...] 2016 Shingrix Vaccine (1 of 2) 2016 Medicare Advantage Annual We llness Visit 06/28/2024 Influenza Vaccine (#1) 2025 04/14/2016, 2014 Diabetes Screening 03/14/2025 03/14/2022, 1 , 06/14/2020 Prostate Cancer Screening Discussion 11/05/202710/26 Insurance O Care Teams Laborer Driver Relationship Specialty Start Date End Date Gilbert Kline MD PCP - General Family Medicine 01/11/18
--- OUTSIDE RECORDS SUMMARY | 2025-01-31 10:00 | XMS_ITS | Encounter Summary ---
Author Organization [facility] Address [id number] [address] [place] [address] Care Team Providers Care Doctor Of Dental Medicine Name Role Phone Gilbert Kline MD Primary Care Provider [phone] Encounter Details Date Type Department Care Team (Late st Contact Info) Description 12/27/2024 Telephone [facility] - Diabetes [address] [place] [phone] Kiera Kidd CMA Social History Tobacco Use Types Packs/Day Years Used Date Smoking Tobacco: Never Smokeless Tobacco: Never Alcohol Use Standard Drinks/Week Comments Never 0 (1 standard drink = 0.6 oz pur e alcohol) [facility] Utilities Answer Date Recorded In [...] Recorded Do you need help finding a [facility] career center and/or a training [...] encounter Miscellaneous Notes * Telephone Encounter - Kiera Kidd CMA - 12/27/2024 2:46 PM EDT We received a referral for education for Rios Bartlett 1965. However per [facility] Guidelines the services requested need to be ordered by an MD or DO. Please see pended order and have MD/DO sign if agreeable. Thank you [facility] * Telephone Encounter - Kiera Kidd CMA - 12/27/2024 2:46 PM EDT We received the new order signed by Dr. Biggs, but there are no services marked. Please see pended order and have signed by Dr. Biggs. Thank you documented in this encounter Plan of Treatment Upcoming Encounters Date Type Department Care Team (Late st Contact Info) Description 03/15/2025 3:00 PM EDT Office Visit [facility] [address] [place] [phone] Diane Khan, DO [address] [address] 04/03/2025 8:00 PM EDT Clinical Support [facility] - Sleep Disorders [address] [place] [address] documented as of this encounter Goals Goal Patient Goal Type Associated Problems Recent Progress Patient-Stated? Author Home with self care General Yes Conchita Levine, RN Note: Evaluation of progress towards goal: Patient plans to return to home with self care when he is improved. documented as of this encounter Visit Diagnoses Diagnosis Severe obesity (BMI >= 40) (CMS-HCC)- Primary documented in this encounter Additional Health Concerns Infection Onset Date Last Indicated Resolved Time Enteric Rule-Out 12/27/2024 12/27/2024 12/28/2024 12:20 PM EDT Assessment Noted Time PHQ-9 Depression Total Score: 0 06/24/20 20 6:36 PM EST documented as of this encounter Care Teams Doctor Of Dental Medicine Relationship Specialty Start Date End Date Gilbert Kline MD PCP - General Family Medicine 04/25/20 documented as of this encounter
--- OUTSIDE RECORDS SUMMARY | 2025-01-31 10:00 | XMS_ITS | Encounter Summary ---
Author Organization [facility] tem Address [id number] [address] [place] [address] Care Team Providers Care Passenger Tire Inspector Name Role Phone Gilbert Kline MD Primary Care Provider [phone] Reason for Visit * Reason Onset Date Comments Sleep Lab 12/28/2024 Split night Encounter Details Date Type Department Care Team (Late st Contact Info) Description 12/28/2024 Telephone [facility] - Sleep Disorders [address] [place] [phone] Transcribe, Orders Support User Sleep Lab (Split night) Social History Tobacco Use Types Packs/Day Years Used Date Smoking Tobacco: Never Smokeless Tobacco: Never Alcohol Use Standard Drinks/Week Comments Never 0 (1 standard drink = 0.6 oz pur e alcohol) [facility] Utilities Answer Date Recorded In the [...] Recorded Do you [facility] help [facility] and/or a training program? [...] encounter Miscellaneous Notes * Telephone Encounter - Gill Bond - 12/28/2024 12:20 PM EDT 12/27 Order received Scheduled Split Night @ [facility] on 01/17 Chatted pre auth Routed Tim Emailed confirmation [facility] Split Night Order and 12/27 Biggs notes in epic PT asked for [facility] * Telephone Encounter - Kiya Dumont MD - 12/28/2024 12:20 PM EDT OK for split night MUST use TCO2 given history of hypoxic hypercapnic respiratory failure PPG read/follow would likely benefit from pulm/sleep consult, PFT/CXR given history * Telephone Encounter - Emily Blankenship - 12/28/2024 12:20 PM EDT AUTH/START SN([id number])/Pending [facility] [employer] Reference# [id number] Uploaded clinicals * Telephone Encounter - Emily Blankenship - 12/28/2024 12:20 PM EDT SN([id number])/Approved [facility] [employer] Reference# [id number] Valid dates: 01/02/2025 - 03/05/2025 Authorization uploaded to MM * Telephone Encounter - Colleen Deleon - 12/28/2024 12:20 PM EDT Routing edgar, indicated in notes that patient is seeing marylu but order indicates ppg r/f * Telephone Encounter - Alyssa Helm - 12/28/2024 12:20 PM EDT Pt did see Dr Perez on 12/27/24. Spoke to pt and he says he only saw Marylu once when he was in the hospital and does not plan to continue with Dr Perez. Pt wants to keep Sept appt with Dr Khan * Telephone Encounter - Colleen Deleon - 12/28/2024 12:20 PM EDT Pt completed SN check in ESS=13 MSC PPG r/f DME MSC on 1.5 L 02 as need (through msc) * Telephone Encounter - Colleen Deleon - 12/28/2024 12:20 PM EDT Split night polysomnogram on 2025-01-17 AHI (3%)=85.2 events/hour; AHI (4%)=82.2 events/hour; Paul SpO2=69.0%; Routed Tim for Paul and CO2 readings * Telephone Encounter - Kiya Dumont MD - 12/28/2024 12:20 PM EDT Will need BiPAP retitration with TCO2 Starting BiPAP 20/13 cm of water, without oxygen, increase pressure support for hypoventilation, switch to VAPS if persistent hypoventilation on BiPAP We will need to get order from PCP or move up new patient appt with our group documented in this encounter Plan of Treatment Upcoming Encounters Date Type Department Care Team (Late st Contact Info) Description 03/15/2025 3:00 PM EDT Office Visit [facility] Pulmonary/Sleep Medicine [address] [facility] [place] [phone] Diane Khan, DO [address] [address] 04/03/2025 8:00 PM EDT Clinical Support [facility] - Sleep Disorders [address] [place] [phone] documented as of this encounter Goals Goal [...] documented as of this encounter Care Teams Passenger Tire Inspector Relationship Specialty Start Date End Date Gilbert Kline MD PCP - General Family Medicine 04/25/20 documented as of this encounter
--- OUTSIDE RECORDS SUMMARY | 2025-01-31 10:00 | XMS_ITS | Patient Health Record ---
Author Organization [facility] [place] Address [address] [place] [address] Care Team Providers Care Counselor Camp Name Role Phone Vargas Coronado Primary Care Provider Allergies Allergen (clinical drug ingredient) Drug/Non Drug Allergy documented on EMR Reaction Allergy Type Onset Date Status morphine Morphine Unknown Drug Allergy Active Results Component Value Reference Range Notes INSULIN Reviewed date:05/14/2024 01:27:55 PM Interpretation: Performing Lab: Notes/Report: [facility] , Insulin 31.2 2.6-24.9 uIU/mL Performed at: - [facility] [address] [id number] Integrated Specialist: Carlyle Lancaster PhD, Phone: [phone] Performing Lab: see note LC - [facility] LB CT sinus wo con Reviewed date:08/07/2024 07:12:19 PM Interpretation: Performing Lab: Notes/Report: Source Facility: [place] [address] CT Scan Report Signed Patient: Shakila Lopez MR#: [id number] : 1965 Acct:[id number] Age/Sex: 58 / M ADM Date: 08/04/24 Loc: CT Attending Dr: Mary Coronado M.D. Ordering Physician: Mary Coronado M.D. Date of Service: 08/04/24 Procedure(s): CT sinus wo con Accession Number(s): [id number] cc: Mary Coronado M.D. [place] [id number] [phone] Patient Name: SHAKILA LOPEZ MRN: [id number] date: 1965 Sex: M Assigned Patient Location: CT Current Patient Location: Accession/Order Number: [id number] Exam Date: 08/04/2024 10:05 Report Date: 08/07/2024 [...] Signed By: 08/07/24 1505 DD/ 1502 TD/TT: Consumer Marketing Manager: The [address] [address] [address] Scan Report Signed Patient: Alexis Lopez MR#: [id number] : 1965 Acct:[id number] Age/Sex: 58 / M ADM Date: 08/04/24 Loc: CT Attending Dr: Karla Coronado M.D. Ordering Physician: Hoy,Mary M.D. Date of Service: 08/04/24 Procedure(s): CT sin us wo con Accession Number(s): [id number] cc: Mary Coronado M.D. The [address] [address] Patient Name: SHAKILA LOPEZ MRN: [id number] date: 1965 Sex: M Assigned Patient Location: CT Current Patient Location: Accession/Order Numb er: [id number] Exam Date: 08/04/2024 10:05 Report Date: 08/07/2024 [...] Rodriguez M.D. Signed By: 08/07/24 1505 DD/ 1507 TD/TT: Consumer Marketing Manager: US venous doppler DALE LIN Reviewed date:12/06/2024 12:50:23 PM Interpretation: Performing Lab: Notes/Report: Source Facility: [place] [address] [place] [address] Ultrasound Report Signed Patient: SHAKILA LOPEZ MR#: [id number] : 1965 Acct:[id number] Age/Sex: 59 / M ADM Date: 12/04/24 Loc: [facility] Attending Dr: Mary Coronado M.D. Ordering Physician: Mary Coronado M.D. Date of Service: 12/04/24 Procedure(s): US venous doppler LE LT Accession Number(s): [id number] cc: Mary Coronado M.D. [place] [address] Patient Name: SHAKILA LOPEZ MRN: [id number] date: 1965 Sex: M Assigned Patient Location: [facility] Current Patient Location: Accession/Order Number: [id number] Exam Date: 12/06/2024 10:19 Report Date: 12/06/2024 10:20 At the request of: MARY CORONADO MD Procedure: US venous doppler LE LT VENOUS DUPLEX ULTRASOUND - left lower extremity HISTORY / INDICATION: Left foot pain and swelling for the past 2 weeks. COMPARISON: NONE TECHNIQUE: Duplex and color Doppler ultrasound evaluation of the left lower extremity was performed. FINDINGS: The common femoral, superficial femoral and popliteal veins show normal flow and compressibility. No intraluminal filling defects are seen. The visualized calf veins and greater saphenous vein are also compressible. US/US venous doppler LE LT IMPRESSION: NO EVIDENCE OF DEEP VEIN THROMBOSIS OF THE LEFT LOWER EXTREMITY. Impression dictated by: Tamiko Patino M.D. 12/06/2024 10:20 AM Dictation Location: [place] [address] Electronically authenticated by: [id number] Y Date: 12/06/2024 10:20 Dictated By: Tamiko Patino M.D. Signed By: 12/06/24 1023 DD/ 1020 TD/TT: Consumer Marketing Manager: [place] [address] Ultrasound Report Signed Patient: ALEXIS LOPEZ MR#: [id number] : 1965 Acct:[id number] Age/Sex: 59 / M ADM Date: 12/04/24 Loc: [facility] Attending Dr: Karla Coronado M.D. Ordering Physician: Mary Coronado M.D. Date of Service: 12/04/24 Procedure(s): US lewis ous doppler LE LT Accession Number(s): [id number] cc: Mary Coronado M.D. The [place] [address] Patient Name: SHAKILA LOPEZ MRN: [id number] date: 1965 Sex: M Assigned Patient Location: [facility] Current Patient Location: Accession/Order Numb er: [id number] Exam Date: 12/06/2024 10:19 Report Date: 12/06/2024 10:20 At the request of: MARY CORONADO MD Procedure: US venous doppler LE LT VENOUS DUPLEX ULTRASOUND - left lower extremity HISTORY / INDICATION : Left foot pain and swelling for the past 2 weeks. COMPARISON: NONE TECHNIQUE: Duplex an d color Doppler ultrasound evaluation of the left lower extremity was performed. FINDINGS: The common femoral, superficial femoral and popliteal veins show normal flow and compressibility. No intraluminal filling defects are seen. The visualized calf vein s and greater saphenous vein are also compressible. US/US venous doppler LE LT IMPRESSION: NO EVIDENCE OF DEEP VEIN THROMBOSIS OF THE LEFT LOWER EXTREMITY. Impression dictated by: Tamiko Patino M.D. 12/06/2024 10:20 AM Dictation Location: [place] [address] Electronically authenticated by: [id number] Y Date: 12/06/2024 10:20 Dictated By: Tamiko Patino M.D. Signed By: 12/06/24 1023 DD/ 1020 TD/TT: Consumer Marketing Manager: DAVID T3 Reviewed date:01/25/2025 12:47:40 PM Interpretation: Performing Lab: Notes/Report: [facility] , Free T3 1.86 2.18-3.98 pg/mL Performing Lab: see note ML - The [facility] LB T4 Reviewed date:01/25/2025 12:47:40 PM Interpretation: Performing Lab: Notes/Report: [facility] , T4 Thyroxine 6.90 4.50-12.10 ug/dL Performing Lab: see note ML - [facility] LB TSH Reviewed date:01/25/2025 12:47:40 PM Interpretation: Performing Lab: Notes/Report: [facility] , Thyroid Stimulating Hormone 2.149 0.358-3.740 uIU/mL Performing Lab: see note ML - [facility] LB CT abdomen pelvis wo con Reviewed date:09/27/2024 07:35:47 PM Interpretation: Performing Lab: Notes/Report: Source Facility: [facility] [place] [address] [place] [address] CT Scan Report Signed Patient: SHAKILA LOPEZ MR#: [id number] : 1965 Acct:[id number] Age/Sex: 59 / M ADM Date: 09/27/24 Loc: CT Attending Dr: Mary Coronado M.D. Ordering Physician: Mary Coronado M.D. Date of Service: 09/27/24 Procedure(s): CT abdomen pelvis wo/w con Accession Number(s): [id number] cc: Mary Coronado M.D. The [place] [address] Patient Name: SHAKILA LOPEZ MRN: [id number] date: 1965 Sex: M Assigned Patient Location: CT Current Patient Location: CT Accession/Order Number: [id number] Exam Date: 09/27/2024 11:26 Report Date: 09/27/2024 [...] Tamiko Patino M.D.09/27/2024 11:36 AM Dictation Location: [place] [address] Electronically authenticated by: [id number] Y Date: 09/27/2024 11:36 Dictated By: Tamiko Patino M.D. Signed By: 09/27/24 1139 DD/ 1136 TD/TT: Consumer Marketing Manager: [place] [address] CT Scan Report Signed Patient: ALEXIS LOPEZ SJ T MR#: [id number] : 1965 Acct:[id number] Age/Sex: 59 / M ADM Date: 09/27/24 Loc: CT Attending Dr: Karla Coronado M.D. Ordering Physician: Hoy,Mary M.D. Date of Service: 09/27/24 Procedure(s): CT abdomen pelvis wo/w con Accession Number(s): [id number] cc: Mary Coronado M.D. [address] [address] Patient Name: SHAKILA LOPEZ MRN: [id number] date: 1965 Sex: M Assigned Patient Location: CT Current Patient Location: CT Accession/Order [facility] er: [id number] Exam Date: 09/27/2024 11:26 Report Date: 09/27/2024 [...] Tamiko Patino M.D.09/27/2024 11:36 AM Dictation Location: [place] [address] Electronically authenticated by: [id number] Y Date: 09/27/2024 11:36 Dictated By: Tamiko Patino M.D. Signed By: 09/27/24 1139 DD/ 1136 TD/TT: Consumer Marketing Manager: TSH Reviewed date:2024 06:24:42 PM Interpretation: Performing Lab: Notes/Report: [facility] , Thyroid Stimulating Hormone 1.727 0.358-3.740 uIU/mL Performing Lab: see note ML - [facility] LB T4 Reviewed date:2024 06:24:42 PM Interpretation: Performing Lab: Notes/Report: [facility] , T4 Thyroxine 5.70 4.50-12.10 ug/dL Performing Lab: see note ML - [facility] LB PROF 14(COMP METB) Reviewed date:2024 06:24:42 PM Interpretation: Performing Lab: Notes/Report: [facility] , Sodium 142 136-145 mmol/L Potassium 4.4 [...] 1.0 Performing Lab: see note ML - [facility] LB GLYCOHEMOGLOBIN A1C Reviewed date:2024 06:24:42 PM Interpretation: Performing Lab: Notes/Report: [facility] , Glycohemoglobin A1C 5.6 4.5-6.2 % ADA RECOMMENDED LIMIT 4.0 - 6.0 ADA THERAPEUTIC TARGET < 7.0 ACTION SUGGESTED > 7.0 Estimated Average Glucose 114 Performing Lab: see note - [facility] FREE T3 Reviewed date:2024 06:24:42 PM Interpretation: Performing Lab: Notes/Report: [facility] , Free T3 2.48 2.18-3.98 pg/mL Performing Lab: see note - [facility] LB CBC AUTO DIFF Reviewed date:2024 06:24:42 PM Interpretation: Performing Lab: Notes/Report: [facility] , White Blood Count 11.8 4.0-11.0 10 [...] 3/uL Performing Lab: see note ML - [facility] LB URIC ACID SERUM Reviewed date:05/14/2024 01:27:55 PM Interpretation: Performing Lab: Notes/Report: [facility] , Uric Acid 8.2 3.5-7.2 mg/dL Performing Lab: see note ML - [facility] LB TSH Reviewed date:05/14/2024 01:27:55 PM Interpretation: Performing Lab: Notes/Report: [facility] , Thyroid Stimulating Hormone 1.936 0.358-3.740 uIU/mL Performing Lab: see note ML - [facility] LB T4 Reviewed date:05/14/2024 01:27:55 PM Interpretation: Performing Lab: Notes/Report: [facility] , T4 Thyroxine 6.90 4.50-12.10 ug/dL Performing Lab: see note ML - [facility] LB PSA SCREENING Reviewed date:05/14/2024 01:27:55 PM Interpretation: Performing Lab: Notes/Report: [facility] , Prostate Specific Antigen Scrn 0.67 <=4.00 ng/mL Performing Lab: see note ML - [facility] LB PROF 14(COMP METB) Reviewed date:05/14/2024 01:27:55 PM Interpretation: Performing Lab: Notes/Report: [facility] , Sodium 142 136-145 mmol/L Potassium 4.4 [...] 0.9 Performing Lab: see note ML - [facility] LIPID PROFILE Reviewed date:05/14/2024 01:27:55 PM Interpretation: Performing Lab: Notes/Report: [facility] , Triglycerides 156 <=150 mg/dL Cholesterol 209 <=200 mg/dL HDL Cholesterol 50 40-60 mg/dL > or =60 mg/dl - LOW CARDIOVASCULAR RISK <40 mg/dl - HIGH CARDIOVASCULAR RISK LDL Cholesterol Calculated 128.0 <100 mg/dl OPTIMAL 100-129 mg/dl NEAR OR ABOVE OPTIMAL 130-159 mg/dl BORDERLINE HIGH 160-189 mg/dl HIGH >190 mg/dl VERY HIGH VLDL CHOLESTEROL 31.2 Chol HDL Ratio 4.2 3.3 - 4.4 LOW RISK 4.4 - 7.1 AVERAGE RISK 7.1 - 11.0 MODERATE RISK >11.0 HIGH RISK Performing Lab: see note ML - [facility] GLYCOHEMOGLOBIN A1C Reviewed date:05/14/2024 01:27:55 PM Interpretation: Performing Lab: Notes/Report: [facility] , Glycohemoglobin A1C 6.1 4.5-6.2 % ADA RECOMMENDED LIMIT 4.0 - 6.0 ADA THERAPEUTIC TARGET < 7.0 ACTION SUGGESTED > 7.0 Estimated Average Glucose 128 Performing Lab: see note ML - [facility] FREE T3 Reviewed date:05/14/2024 01:27:55 PM Interpretation: Performing Lab: Notes/Report: [facility] , Free T3 2.44 2.18-3.98 pg/mL Performing Lab: see note ML - [facility] CBC AUTO DIFF Reviewed date:05/14/2024 01:27:55 PM Interpretation: Performing Lab: Notes/Report: [facility] , White Blood Count 12.8 4.0-11.0 10 [...] 3/uL Performing Lab: see note ML - [facility] LB PROF 14(COMP METB) Reviewed date:01/25/2025 12:47:40 PM Interpretation: Performing Lab: Notes/Report: [facility] , Sodium 143 136-145 mmol/L Potassium 4.6 3.5-5.1 mmol/L Chloride 106 98-107 mmol/L Carbon Dioxide 29.8 21.0-32.0 mmol/L Anion Gap 11.8 Glucose 107 74-106 mg/dL Blood Urea Nitrogen 20.0 7.0-18.0 mg/dL Creatinine 1.14 0.70-1.30 mg/dL Estimated GFR ( Kriss >60 >=60 mL/min/1.73m 2 Estimated GFR (Non- Shwetha >60 >=60 mL/min/1.73m 2 BUN Creatinine Ratio 17.5 Calcium 8.6 8.5-10.1 mg/dL Bilirubin Total 0.6 0.2-1.0 mg/dL Aspartate Amino Transferase 22 15-37 U/L Alanine Aminotransferase 46 16-63 U/L Alkaline Phosphatase 61 46-116 U/L Total Protein 6.5 6.4-8.2 g/dL Albumin Level 3.2 3.4-5.0 g/dL Globulin 3.3 Albumin Globulin Ratio 1.0 Performing Lab: see note - [facility] LB INSULIN Reviewed date:01/28/2025 07:40:39 PM Interpretation: Performing Lab: Notes/Report: [facility] , Insulin 50.3 2.6-24.9 uIU/mL Performed at: [facility] [address] [id number] Integrated Specialist: Carlyle Lancaster PhD, Phone: [phone] Performing Lab: see note [facility] LB GLYCOHEMOGLOBIN A1C Reviewed date:01/25/2025 12:47:40 PM Interpretation: Performing Lab: Notes/Report: [facility] , Glycohemoglobin A1C 6.1 4.5-6.2 % ADA RECOMMENDED LIMIT 4.0 - 6.0 ADA THERAPEUTIC TARGET < 7.0 ACTION SUGGESTED > 7.0 Estimated Average Glucose 128 Performing Lab: see note - [facility] CBC AUTO DIFF Reviewed date:01/25/2025 12:47:40 PM Interpretation: Performing Lab: Notes/Report: [facility] , White Blood Count 8.8 4.0-11.0 10 3/uL Red Blood Count 4.85 4.70-6.10 10 6/uL Hemoglobin 14.7 14.0-18.0 g/dL Hematocrit 45.6 42.0-54.0 % Mean Corpuscular Volume 94.0 80.0-94.0 fL Mean Corpuscular Hemoglobin 30.3 25.9-34.0 pg Mean Corpuscular HGB Conc 32.2 29.9-35.2 g/dL Red Cell Distribution Width 14.4 11.0-15.0 % Platelet Count 197 150-450 10 3/uL Mean Platelet Volume 8.7 9.5-13.5 fL Neutrophils Percent Auto 59.2 43.0-75.0 % Lymphocytes Percent Auto 30.4 20.5-60.0 % Monocytes Percent Auto 7.5 1.7-12.0 % Eosinophils Percent Auto 1.9 0.9-7.0 % Basophils Percent Auto 0.5 0.2-2.0 % Immature Granulocytes Pct Auto 0.5 0.0-0.5 % Neutrophils Absolute Auto 5.2 1.4-6.5 10 3/uL Lymphocytes Absolute Auto 2.7 1.2-3.8 10 3/uL Monocytes Absolute Auto 0.7 0.3-0.8 10 3/uL Eosinophils Absolute Auto 0.2 0.0-0.7 10 3/uL Basophils Absolute Auto 0.0 0.0-0.1 10 3/uL Immature Granulocytes Abs Auto 0.04 0.00-0.03 10 3/uL Performing Lab: see note ML - [facility] LB BNP Reviewed date:01/25/2025 12:47:40 PM Interpretation: Performing Lab: Notes/Report: [facility] , NT Pro B Type Natriuretic Pept 137.0 <=900.0 pg/mL Performing Lab: see note ML - [facility] LB BNP Reviewed date:2024 06:24:42 PM Interpretation: Performing Lab: Notes/Report: [facility] , NT Pro B Type Natriuretic Pept 165.0 <=900.0 pg/mL Performing Lab: see note ML - [facility] LB UA DIP NONAUTO WO MICRO (810 02) - IN OFFICE Reviewed date:2024 06:24:42 PM Interpretation: Performing Lab: Notes/Report: COLOR yellow CLARITY clear GLUCOSE neg BILIRUBIN neg KETONE neg SPECIFIC GRAVITY 1.020 BLOOD trace PH 5 PROTEIN trace UROBILINOGEN neg NITRITE neg LEUKOCYTE ESTERASE neg Reason For Referral Diagnosis 1 Urinary frequency (R 35.0) Diagnosis 2 Prostate pain (N42.8 1) Referral Organization [facility] Referring Provider First Name Vargas Referring Provider Last Name Raisa Referring Provider Speciality [facility] Referred Provider Danny Armendariz Referred Provider Specialty Urology Referral Priority Routine Diagnosis 1 Over weight (E66.3) Referral Organization [facility] Referring Provider First Name Vargas Referring Provider Last Name Raisa Referring Provider Speciality [facility] Referred Provider Javad Mendes Referred Provider Specialty General Surg mouna Referral Priority Routine Reason Consult and eval and treat Diagnosis 1 Over weight (E66.3) Referral Organization [facility] Referring Provider First Name Vargas Referring Provider Last Name Raisa Referring Provider Speciality [facility] Referred Provider Specialty Miscellaneou s Referral Priority Routine Medications Medication SIG (Take, Route, Frequency, Duration) Notes Start Date End Date Status Nystatin 485928 UNIT/ML 5 ml Mouth/Throa t Four times a day for 14 days 01/24/2025 Active Liothyronine Sodium 5 MCG 2 tablet on an empty stomach Orally Once a day for 30 days 01/25/2025 Active Ozempic (0.25 or 0.5 MG/DOSE) 2 MG/3ML 0.25 mg Subcutaneous weekly for 28 days G47.33 01/25/2025 Active Immunizations Vaccine Route Administration Date Status Comme nts Flu, Flucelvax (4844-3267) (91551) 6 mos +, single-dose syringe IM Intramuscular [...] Status W/U Status Risk Notes Problem Spasm (59278308) Trapezius muscl e spasm (728.85) Active confirmed Problem Claustrophobia (21223783) Claustrophobia (F40.240) Active confirmed Problem Deviated nasal septum (299115028) Deviated nasal septum (J34.2) Active confirmed Problem Ankylosis of joint (243994262) Ankylosis, unspecified joint (M24.60) Active confirmed Problem Spasm of back muscles (328362138) Muscle spasm of back (M62.830) Active confirmed Problem Snoring (23800338) Snoring (R06.83) Active confirmed Problem Weakness (70903948) Weakness (R53.1) Active confirmed Problem Sprain of sacroiliac joint (22063430) Sprain of sacroiliac joint, initial encounter (S33.6XXA) Active confirmed Problem COPD - Chronic obstructive pulmonary disease (77983983) COPD (chronic obstructive pulmonary disease) (J44.9) Active confirmed Problem Obesity (518167401) Obesity (E66.9) Active confirmed Problem Anxiety (81050643) Anxiety (F41.9) Active confirmed Problem Hypothyroid (19985371) Hypothyroid (E03.9) Active confirmed Problem Urinary frequency (634361871) Urinary frequency (R35.0) Active confirmed Problem Gout (75202059) Gout (M10.9) Active confirmed Problem Dyspnea (996523705) Dyspnea (R06.00) Active confirmed Problem Obstructive sleep apnea (63593625) Obstructive sleep apnea (G47.33) Active confirmed Problem Hip pain (50476113) Hip pain (M25.559) Active confirmed Problem Chronic sinusitis (86556919) Chronic sinusitis (J32.9) Active confirmed Problem Fatty liver (036863276) Fatty liver (K76.0) Active confirmed Problem Well adult (381345461) Well adult (Z00.00) Active confirmed Problem Osteoarthritis (676984252) Osteoarthritis, unspecified osteoarthritis type, unspecified site (M19.90) Active confirmed Problem Thrush (78471480) Thrush (B37.0) Active confirm ed Problem Displacement of lumbar intervertebral disc without myelopathy (05289763) Herniated lumbar disc without myelopathy (M51.26) Active confirmed Problem Hypertrophy of nasal turbinates (89000118) Hypertrophy, nasal, turbinate (J34.3) Active confirmed Problem Overweight (683785038) Over weight (E66.3) Active confirmed Problem Abdominal hernia (83300937) Abdominal hernia (K46.9) Active confirmed Problem Elevated blood pressure reading without diagnosis of hypertension (580770102) Elevated blood pressure (not hypertension) (R03.0) Active confirmed Problem Spondylosis, cervical, with myelopathy (M47.12) Active confirmed Problem Hallucinations (6813796) Hallucination (R44.3) Active confirmed Problem Paresthesia of arm (31329546) Paresthesia of arm (R20.2) Active confirmed Problem 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) Active confirmed Problem Choking sensation (418893339) Choking sensation (R09.89) Active confirmed Problem Lipoma of skin (682851205) Lipoma of skin (D17.30) Active confirmed Problem 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) Neuropathy, idiopathic (G60.9) Active confirmed Problem Prostate pain (14370154) Prostate pain (N42.81) Active confirmed Problem Cyst of oral soft tissue (944140725) Cyst of oral region (K09.9) Active confirmed Problem Chronic cough (48894153) Chronic cough (R05.3) Active confirmed Problem Metabolic syndrome X (disorder) (304351945) Insulin resistance syndrome, Type A (E88.811) Active confirmed Problem Headache (44104610) Headache (R51.9) Active confirmed Vital Signs Blood pressure diastolic 84 mm Hg 01/24/2025 Height 59 in 01/24/2025 Blood pressure systolic 122 mm Hg 01/24/2025 Weight 343.6 lbs 01/24/2025 BMI 69.39 kg/m2 01/24/2025 Encounters Encounter Location Date Provider Diagnosis [facility] [address] [place] [address] 01/24/2025 Vargas [place] Weakness R53.1 ; Obe sity E66.9 ; Headache R51.9 ; Thrush B37.0 ; Hallucination R44.3 and Dyspnea R06.00 [place] [address] [place] [address] 05/12/2024 Vargas [place] Chronic sinusitis J3 2.9 and Hypertension 401.9 [place] [address] [place] [address] 2024 Vargas [place] Urinary frequency R3 5.0 ; Other low back pain M54.59 ; UTI (urinary tract infection), uncomplicated N39.0 ; Dysuria R30.0 and Abdominal pain R10.9 [facility] [address] [place] [address] 12/04/2024 Vargas [place] Insulin resistance syndrome, Type A E88.811 ; Weakness R53.1 ; Herniated lumbar disc without myelopathy M51.26 and Edema R60.9 [facility] [address] [facility] [place] [address] 01/04/2025 Vargas Mkceonjacob Acute non-recurrent sinusitis, unspecified location J01.90 ; Nasal congestion R09.81 and COPD (chronic obstructive pulmonary disease) J44.9 [facility] [address] [facility] [place] [address] 07/19/2024 Vargas [place] Sleep apnea G47.30 a nd Chronic sinusitis J32.9 [facility] [address] [facility] [place] [address] 03/23/2024 Vargas Coronado Well adult Z00.00 ; Osteoarthritis, unspecified osteoarthritis type, unspecified site M19.90 and Pain in left knee M25.562 [facility] [address] [facility] [place] [address] 05/10/2024 Vargas [facility] [address] [facility] [place] [address] 05/14/2024 Vargas [facility] [address] [facility] [place] [address] 06/26/2024 Vargas [facility] [address] [facility] [place] [address] 07/19/2024 Vargas [facility] [address] [facility] [place] [address] 08/07/[address] [facility] [address] [facility] [place] [address] 08/23/2024 Vargas [facility] [address] [facility] [place] [place] [address] [facility] [address] [facility] [place] [address] 09/12/2024 Vargas [facility] [address] [facility] [place] [place] [address] 09/18/2024 Vargas [facility] [address] [facility] [place] [address] 09/27/2024 Avrgas Hoy Fatty liver K76.0 [facility] [address] [facility] [place] [address] 10/09/2024 Vargas Hoy [facility] [address] [facility] [place] [address] 11/01/2024 Vargas [place] Sleep apnea G47.30 ; Urinary frequency R35.0 and Prostate pain N42.81 [facility] [address] [facility] [place] [address] 12/04/2024 Vargas Hoy [facility] [address] [facility] [place] [address] 12/06/2024 Vargas Hoy [facility] [address] [facility] [place] [address] 12/22/2024 Vargas Hoy [facility] [address] [facility] [place] [place] [address] 01/03/2025 Vargas Hoy [facility] [address] [facility] [facility] [place] [address] 01/04/2025 Vargas Hoy [facility] [address] [place] [address] 01/08/2025 Vargas Hoy [facility] [address] [place] [address] 01/12/2025 Vargas Hoy Over weight E66.3 [facility] [address] [place] [place] [address] 01/16/2025 Vargas Hoy Edema R60.9 [facility] [address] [place] [place] [address] 01/24/2025 Vargas Hoy [facility] [address] [place] [address] 01/24/2025 Vargas Hoy Over weight E66.3 [facility] [address] [place] [address] 01/25/2025 Vargas Hoy [facility] [address] [place] [address] 01/25/2025 Vargas Coronado Hypothyroid E03.9 [facility] [address] [place] [address] 01/29/2025 Vargas Coronado [facility] [address] [place] [address] 01/31/2025 Vargas Coronado Assessments Encounter Date Diagnosis (ICD Code) Assessment Notes Treatment Notes Treatment Clinical Notes Section Notes 03/23/2024 Well adult (ICD-10 - Z00.00) 03/23/2024 Osteoarthritis, unspecified osteoarthritis type, unspecified site (ICD-10 - M19.90) 05/12/2024 Chronic sinusitis (ICD-10 - J32.9) 05/12/2024 Hypertension (ICD9-CM - 401.9) 07/19/2024 Sleep apnea (ICD-10 - G47.30) needs set up the [facility] - recommending [facility] 07/19/2024 Chronic sinusitis (ICD-10 - J32.9) 2024 Urinary frequency (ICD-10 - R35.0) 2024 Other low back pain (ICD-10 - M54.59) 12/04/2024 Insulin resistance syndrome, Type A (ICD-10 - E88.811) 12/04/2024 Weakness (ICD-10 - R53.1) 01/04/2025 Acute non-recurrent sinusitis, unspecified location (ICD-10 - J01.90) Rest and drink more liquids, especially water. You may use a humidifier or vaporizer to help keep the drainage moist. Dnvp-jvj-pnmmdnw Nasal Saline may help the stuffy and runny nose. Use Ibuprofen and or Tylenol as needed for fever, chills, body aches or pain. Children 5 years old should not be given brfs-era-kfyxvwa cough and cold medications such as guaifenesin and dextromethorphan. If you're over age 5, you may try pmeg-gwz-duxqfrq cold medications such as guaifenesin and dextromethorphan, or multi-symptom cold reliever such as Dayquil to help reduce the symptoms. Antibiotics have been prescribed. You should take these until completed and follow the directions. Antibiotics can sometimes cause upset stomach, and in rare cases, serious allergic reactions or serious gastrointestinal problems. If you start having severe abdominal pain, severe vomiting, or bloody diarrhea, you should be reevaluated by your physician or urgent care immediately. Follow up with your Primary Care Provider or return to clinic if symptoms do not improve within 3-5 days 01/24/2025 Weakness (ICD-10 - R53.1) 01/24/2025 Obesity (ICD-10 - E66.9) 09/27/2024 Fatty liver (ICD-10 - K76.0) 11/01/2024 Sleep apnea (ICD-10 - G47.30) 01/12/2025 Over weight (ICD-10 - E66.3) 01/16/2025 Edema (ICD-10 - R60.9) 01/24/2025 Over weight (ICD-10 - E66.3) 01/25/2025 Hypothyroid (ICD-10 - E03.9) 11/01/2024 Urinary frequency (ICD-10 - R35.0) 01/24/2025 Headache (ICD-10 - R51.9) 01/04/2025 Nasal congestion (ICD-10 - R09.81) 01/04/2025 COPD (chronic obstructive pulmonary disease) (ICD-10 - J44.9) 12/04/2024 Herniated lumbar disc without myelopathy (ICD-10 - M51.26) Need motorized scooter to iprove ADL's outside th house - unable currently to walk in stor,[employer] shopping, groceries etc 03/23/2024 Pain in left [...] until they are finished. You can use abym-epm-kmznjkn acetaminophen or ibuprofen if needed for pain. You should follow up with your Primary Care Physician or return to clinic if not improving in the next 3-5 days. 12/04/2024 Edema (ICD-10 - R60.9) neeed svenous doppler 01/24/2025 Thrush (ICD-10 - B37.0) 11/01/2024 Prostate pain (ICD-10 - N42.81) 01/24/2025 Hallucination (ICD-10 - R44.3) 2024 Dysuria (ICD-10 - R30.0) 2024 Abdominal pain (ICD-10 - R10.9) 01/24/2025 Dyspnea (ICD-10 - R06.00) Plan Of Treatment Pending Test Test Name [...] CT ABD and PELVIS WO CON 2024 CT CHEST WO CON 01/24/2025 MRI BRAIN WO CON 01/24/2025 US LEWIS DOP LEG LT 12/04/2024 THYROID PANEL (T4/TSH/FREE T3) 5 THYROID PANEL (T4/TSH/FREE T3) 5 THYROID PANEL (T4/TSH/FREE T3) 5 THYROID PANEL (T4/TSH/FREE T3) 4 FIBROSCAN PROCEDURE 09/27/2024 CT sinus w con 07/19/2024 CMP (COMP MET MANN) w/eGFR CKD-EPI 2024 CBC WITH DIFF 2024 Insurance Providers Payer Name Payer Address Payer Phone Subscriber Number Group Number Insured Name Patient Relationship to Insured Coverage Start Date Coverage End Date [employer] [address] [place] [phone] [id number] LopezShakila Self - patient is the insured Medications Administered Medication Instructions Date of Administration Dosage Notes DEPO-Medrol 05/26/2023 120 mg 120 Dexamethasone, 4mg/mL 01/04/2025 12 mg Kenalog-40 11/04/2022 120 mg 120 Kenalog-40 11/01/2023 120 mg 120 Kenalog-40 03/23/2024 120 mg Ketorolac Tromethamine 11/04/2022 60 mg 60 Ketorolac Tromethamine 05/26/2023 60 mg 60 Ketorolac Tromethamine 11/01/2023 60 mg 60 Ketorolac Tromethamine 03/23/2024 60 mg Ketorolac Tromethamine 05/12/2024 60 mg Ketorolac Tromethamine 07/19/2024 60 mg Ketorolac Tromethamine 2024 60 mg Ketorolac Tromethamine 12/04/2024 60 mg Ketorolac Tromethamine 01/24/2025 60 mg Orphenadrine Citrate 11/04/2022 60 mg 60 Orphenadrine Citrate 05/26/2023 60 mg 60 Orphenadrine Citrate 12/04/2024 60 mg Orphenadrine Citrate 01/24/2025 60 mg Triamcinolone 40 mg/ml 05/12/2024 120 mg Triamcinolone 40 mg/ml 07/19/2024 120 mg Triamcinolone 40 mg/ml 2024 120 mg Triamcinolone 40 mg/ml 12/04/2024 80 mg Triamcinolone 40 mg/ml 01/24/2025 120 mg Medical (General) History Medical History History [...] M62.830 Kidney Stone Surgical History Surgery Date(Month/Year) Total Knee Arthroscopy- Left 2013 Revision- Left Knee 10/06/2016 Lumbar Radiofrequency Ablation- Left, Dr Jenelle Fung 08/11/2018 Left Knee Nerve Block- Dr. Good Jun/Jul Septoplasty 2020 Tonsillectomy 2020 Uvulopalatopharyngnoplasty 2020 Lipoma Excision 2021 Lumbar Spinal Fusion- [facility] 03/13/2022 Hospitalization History Reason Date(Month/Year) Influenza 12/2024
--- OUTSIDE RECORDS SUMMARY | 2025-01-31 10:00 | XMS_ITS | Encounter Summary ---
Author Organization [employer] [facility] Address [id number] [address] [place] [address] Care Team Providers Care Ornamental Painter Name Role Phone Gilbert Kline MD Primary Care Provider [phone] Encounter Details Date Type Department Care Team (Late Contact Info) Description 05/27/2020 Orders Only [facility] [address] [place] [address] Luz Espinosa, PA-C [address] [place] [address] Social History Tobacco Use Types [...] Encounters Date Type Department Care Team (Late Contact Info) Description 03/15/2025 3:00 PM EDT Office Visit [facility] Pulmonary/Sleep Medicine [address] [place] [address] Diane Khan, DO [address] [address] 04/03/2025 8:00 PM EDT Clinical Support [facility] - Sleep Disorders [address] [place] [address] documented as of this encounter Visit Diagnoses [...] documented as of this encounter Care Teams Ornamental Painter Relationship Specialty Start Date End Date Gilbert Kline MD PCP - General Family Medicine 04/25/20 documented as of this encounter
--- NOTE | 2025-01-31 10:03 | CT_ITS ---
The [address] [address] Patient Name: SHAKILA LOPEZ MRN: [id number] date: 1965 Sex: M Assigned Patient Location: CT Current Patient Location: CT Accession/Order Number: [id number] Exam Date: 01/31/2025 10:47 Report Date: 01/31/2025 11:05 At the request of: MARY CORONADO MD Procedure: CT chest wo con CT CHEST WITHOUT IV CONTRAST: CLINICAL HISTORY: Dyspnea COMPARISON: Chest 07/06/2023 TECHNIQUE: Spiral images were obtained through the chest without IV contrast. This CT exam was performed using one or more following dose reduction techniques: Automated exposure control, adjustment of the mA and/or kV according to patient size, or use of iterative reconstruction technique. FINDINGS: Mediastinum:Thoracic aorta appears normal in caliber. Pulmonary trunk appears nondilated. No pleural effusion or lymphadenopathy. The esophagus is grossly unremarkable. Lungs:Bibasilar atelectasis. No consolidation pneumothorax or pleural effusion. Abd:No acute process. Hepatic steatosis. Soft tissues/Bones: Soft tissues surrounding the chest wall demonstrate no acute findings. Osseous structures demonstrate degenerative change. CT/CT chest wo con IMPRESSION: No acute process. Impression dictated by: Matt Hernandez Jr., D.O. 01/31/2025 11:05 AM Dictation Location: [place] [address] Electronically authenticated by: [id number] Y Date: 01/31/2025 11:05
== END 2025-01-31 09:56 | disposition home or self-care (01) ==
LOC: CT 09:55
PROVIDERS: PCP Family Medicine; Visit Provider Family Medicine
DX: R06.00 Dyspnea, unspecified (principal); E66.9 Obesity, unspecified
CPT/HCPCS: 71250

== ENCOUNTER 2025-02-27 11:31 | Outpatient (OUT) | payer OTHER, SELFPAY ==
--- OUTSIDE RECORDS SUMMARY | 2025-02-27 11:33 | XMS_ITS | Clinical Summary ---
Author Organization [facility] Address [address] [place], [place] [id number] Care Team Providers Care Maths Tutor Name Role Phone Gilbert Kline MD Primary Care Provider [phone] Allergies Active Allergy Reactions Criticality Noted Date [...] N ot on file 06/04/2020 Data from: [email or web address] Last address used for calculation [...] Screening Discussion 11/05/202710/26 Insurance O Care Teams Maths Tutor Relationship Specialty Start Date End Date Gilbert Kline MD PCP - General Family Medicine 01/11/18
--- OUTSIDE RECORDS SUMMARY | 2025-02-27 11:34 | XMS_ITS | Encounter Summary ---
Author Organization [employer] [facility] [employer] Address [facility] [id number] [address] [place] [address] Care Team Providers Care Genetics Teacher Name Role Phone Gilbert Kline MD Primary Care Provider [phone] Encounter Details Date Type Department Care Team (Late st Contact Info) Description 01/19/2025 Orders Only [facility] Pulmonary/Sleep Medicine [address] [place] [address] Alyssa Helm Sleep related hypoventilation in conditions classified elsewhere (Primary Dx); PATTI (obstructive sleep apnea) Social History Tobacco Use Types Packs/Day Years Used Date Smoking Tobacco: Never Smokeless Tobacco: Never Alcohol Use Standard Drinks/Week Comments Never 0 (1 standard drink = 0.6 oz pur e alcohol) [facility] Utilities Answer Date Recorded In the [...] Recorded Do you need help finding a [facility] career center and/or a training [...] Description 03/15/2025 3:00 PM EDT Office Visit [facility] Pulmonary/Sleep Medicine [address] [facility] [place] [address] Diane Khan, DO [address] [place] [id number] 04/03/2025 8:00 PM EDT Clinical Support [facility] - Sleep Disorders [address] [place] [phone] documented as of this encounter Goals Goal [...] documented as of this encounter Care Teams Genetics Teacher Relationship Specialty Start Date End Date Gilbert Kline MD PCP - General Family Medicine 04/25/20 documented as of this encounter
--- OUTSIDE RECORDS SUMMARY | 2025-02-27 11:34 | XMS_ITS | Clinical Summary ---
Author Organization [facility] Healthcare Address [address] [place] [address] Care Team Providers Care Plater Printed Circuit Board Panels Name Role Phone Unavailable Primary Care Provider [...]
--- OUTSIDE RECORDS SUMMARY | 2025-02-27 11:34 | XMS_ITS | Clinical Summary ---
Author Organization [employer] tem Address [id number] [address] [place] [address] Care Team Providers Care Speech Assistant Name Role Phone Gilbert Kline MD Primary Care Provider [phone] Allergies Active Allergy Reactions Criticality Noted Date Comments Morphine Itching 01/28/2018 Medications benzonatate (TESSALON PERLES) 100 mg capsule Take 1 capsule (100 mg total) by mouth 3 (three) times a day as needed for cough. 20 capsule Active predniSONE (DELTASONE) 10 mg tablet 3 tabs for 3 days, 2 tabs for 3 days, 1 tab for 3 days 18 tablet Active Additional Information Patient not taking.Reported on 01/17/2025 hydrOXYzine (ATARAX) 25 mg tablet Take 1 tablet (25 mg total) by mouth once as needed for anxiety. Active ketoconazole (NIZORAL) 2 % cream Apply 1 Application topically in the morning. Active Active Problems Problem Noted Date Diagnosed [...] Type Department Care Team Description 01/26/2025 Telephone [facility] Disorders [facility] [address] [place] [phone] Gilbert Kline MD Sleep Lab (BiPAP) 01/22/2025 11:25 AM EDT - 01/22/2025 11:59 PM EDT Hospital Encounter [facility] - Pulmonary Function [address] [place] [address] Diane Khan, Hypoxia Discharge Disposition: Home 01/22/2025 Travel 01/19/2025 Orders Only [facility] Pulmonary/Sleep Medicine [address] [place] [address] Alyssa Helm Sleep related hypoventilation in conditions classified elsewhere (Primary Dx); PATTI (obstructive sleep apnea) 01/18/2025 Telephone [facility] [address] [place] [address] Kiya Dumont MD 01/17/2025 8:00 PM EDT Clinical Support [facility] - Sleep Disorders [address] [place] [phone] Deepika Denis APRN-GROUNDMAN Obstructive sleep apnea 01/17/2025 Travel 01/02/2025 Telephone [facility] Pulmonary/Sleep Medicine [address] [place] [phone] Alyssa Helm 12/28/2024 Telephone [facility] - Sleep Disorders [address] [place] [phone] Transcribe, Orders Support User Sleep Lab (Split night) 12/27/2024 Telephone [facility] - Diabetes [address] [place] [address] Kiera Kidd CMA 12/26/2024 1:45 PM EDT - 12/31/2024 1:05 PM EDT Hospital Encounter [facility] - 2 Med [address] [place] [phone] Pavan Biggs MD Obstructive sleep apnea (Primary Dx); Severe obesity (BMI >= 40) ([facility]); Acute respiratory failure with hypoxia and hypercapnia ([facility]); Bronchitis; Parainfluenza Discharge Disposition: Home 12/26/2024 Travel 12/25/2024 11:37 PM EDT - 12/26/2024 1:00 PM EDT Emergency [facility] - Emergency [address] [place] [phone] Wilner Capps MD Muhammad, Ruqiyya T, MD [...] 0.6 oz pur e alcohol) [facility] Utilities Answer Date Recorded In the past 12 months has [employer], gas, oil, or water company threatened to [...] Recorded Do you need help finding a [facility] career [facility] and/or a training program? [...] Description 03/15/2025 3:00 PM EDT Office Visit [facility] Pulmonary/Sleep Medicine [address] [place] [phone] Diane Khan, DO [address] [address] 04/03/2025 8:00 PM EDT Clinical Support [facility] - Sleep Disorders [address] [facility] [place] [address] Health Maintenance Due Date Last Done Comments [...] is improved. Medical Devices Implanted Type Area Chief Compliance Officer Device Identifier Shelf Expiration Date Model / Serial / Lot Sys Tng Susp Adj Kntls Bn Anch - Sna - [id number] Implanted:Qty: 1 on 06/24/2020 by Demario Colindres MD PhD at [facility] Other Implant Neck [employer] 08/25/2021 [id number] / [id number] / [id number] Procedures Procedure Name Priority Date/Time Associated Diagnosis Comments SPIROMETRY PRE/POST BRONCHODILATOR AND DLCO Routine 01/22/2025 11:59 AM EDT Hypoxia SPLIT NIGHT SLEEP STUDY Routine 01/18/20 8:26 [...] AM EDT ECHO COMPLETE W CONTRAST Routine 9:50 AM EDT BRONCHOPULMONARY HYGIENE Routine 025 [...] EDT from Last 3 Months Results * SPIROMETRY PRE/POST BRONCHODILATOR AND DLCO (01/22/2025 11:59 AM EDT) Narrative MANUALLY TRANSCRIBED RESULTS - 01/31/2025 1:42 PM EDT Patient gave fair effort. Was unable to complete lung volume testing. Impression: Mild obstructive pulmonary defect is demonstrated with significant post bronchodilator response. There is complete reversal of airflow obstruction. Mildly impaired diffusion capacity is noted. This can be seen in underlying interstitial lung disease, anemia, pulmonary vascular disease, pulmonary hypertension or anemia. Please correlate with clinical and radiographic data us Diane Khan DO PFT ORDERABLES Final Result MANUALLY TRANSCRIBED RESULTS * Split Night Sleep Study (01/17/2025 8:26 PM EDT) 01/17/2025 8:26 PM EDT Narrative SLEEPLAB - 01/18/2025 1:16 PM EDT INTERPRETED us Deepika Denis [facility] ORDERABLES Fi nal Result SLEEPLAB * (ABNORMAL) CBC auto differential (12/31/2024 6:25 AM EDT) Only the most recent of6 resultswithin the time period is included. WBC 13.2(H) 4 - 11 x10E9/L 12/31/2024 6:[address] [facility] RBC Count 4.65 4.1 - 5.7 X10E12/L 12/31/2024 6:[address] [facility] Hemoglobin 14.3 13 - 17 g/dL 12/31/2024 6:[address] [facility] Hematocrit 43.0 39 - 50 % 12/31/2024 6:[address] [facility] MCV 92 80 - 100 fL 12/31/2024 6:[address] [facility] MCH 30.8 27 - 34 pg 12/31/2024 6:[address] [facility] MCHC 33.3 32 - 36 g/dL 12/31/2024 6:[address] [facility] RDW 14.4 11.5 - 15 % 12/31/2024 6:[address] [facility] Platelet Count 203 150 - 450 X10E9/L 12/31/2024 6:[address] [facility] MPV 6.7(L) 7 - 12 fL 12/31/2024 6:[address] [facility] Neutrophils % 77.3 % 12/31/2024 6:[address] [facility] Lymphocytes % 15.5 % 12/31/2024 6:[address] [facility] Monocytes % 6.7 % 12/31/2024 6:[address] [facility] Eosinophils % 0.0 % 12/31/2024 6:[address] [facility] Basophils % 0.5 % 12/31/2024 6:[address] [facility] Neutrophils Absolute (A) 10.2(H) 1.5 - 6.6 10*3/uL 12/31/2024 6:[address] [facility] Lymphocytes Absolute 2.0 1.0 - 3.5 10*3/uL 12/31/2024 6:[address] [facility] Monocytes Absolute 0.9 0.0 - 0.9 10*3/uL 12/31/2024 6:[address] [facility] Eosinophils Absolute 0.0 0.0 - 0.4 10*3/uL 12/31/2024 6:[address] [facility] Basophils Absolute 0.1 0.0 - 0.2 10*3/uL 12/31/2024 6:[address] [facility] Differential Type AUTOMATED DIFFERENTIAL 12/31/2024 6:[address] [facility] Blood Venous blood / Unknown Venipuncture / Unknown 12/31/2024 6:25 AM EDT 12/31/2024 6:29 AM EDT Deepika Denis APRN-BRENDA LAB BLOOD ORDERABLES Final Result Performing Organization Address City/[facility] [place] [address], * Magnesium (12/31/2024 6:25 AM EDT) Only the most recent of6 resultswithin the time period is included. MAGNESIUM 2.3 1.8 - 2.6 mg/dL 12/31/2024 6:[address] [facility] Blood Venous blood / Unknown Venipuncture / Unknown 12/31/2024 6:25 AM EDT 12/31/2024 6:29 AM EDT Deepika Denis APRN-BRENDA LAB BLOOD ORDERABLES Final Result [address] [address], * (ABNORMAL) Comprehensive metabolic panel (12/31/2024 6:25 AM EDT) Only the most recent of6 resultswithin the time period is included. SODIUM 141 134 - 146 mmol/L 12/31/2024 6:[address] [facility] POTASSIUM 4.6 3.5 - 5.0 mmol/L 12/31/2024 6:[address] [facility] CHLORIDE 103 98 - 109 mmol/L 12/31/2024 6:[address] [facility] CARBON DIOXIDE 33(H) 22 - 32 mmol/L 12/31/2024 6:[address] [facility] ANION GAP 5 5 - 15 mmol/L 12/31/2024 6:[address] [facility] BLOOD UREA NITROGEN 23 5 - 23 mg/dL 12/31/2024 6:[address] [facility] CREATININE 1.06 0.70 - 1.20 mg/dL 12/31/2024 6:[address] [facility] Comment:METHOD TRACEABLE TO IDMS STANDARD GLUCOSE 124(H) 65 - 99 mg/dL 12/31/2024 6:58 AM [facility] CALCIUM 8.5 8.5 - 10.5 mg/dL 12/31/2024 6:[address] [facility] TOTAL PROTEIN 5.6(L) 6.0 - 8.0 g/dL 12/31/2024 6:[address] [facility] ALBUMIN 2.9(L) 3.2 - 5.3 g/dL 12/31/2024 6:[address] [facility] ALKALINE PHOSPHATASE 44 39 - 130 U/L 12/31/2024 6:[address] [facility] AST 25 <=41 U/L 12/31[facility]24 [facility] ALT 47(H) <=40 U/L 12/31/2024 6:[address] [facility] BILIRUBIN,TOTAL 0.8 0.3 - 1.2 mg/dL 12/31/2024 6:[address] [facility] EGFR Non-Race Dependent 81 >=60 ml/min/1.7 3sq.m 12/31/2024 6:[address] [facility] Comment: eGFR not reported due to non-numeric value for Creatinine. Reported eGFR is based on the CKD-EPI 2020 equation that does not use a race coefficient. Blood Venous blood / Unknown Venipuncture / Unknown 12/31/2024 6:25 AM EDT 12/31/2024 6:29 AM EDT us Deepika Denis APRN-GROUNDMAN LAB BLOOD ORDERABLES Final Result [address] [address], [place] * (ABNORMAL) Blood gas, venous (12/28/2024 7:12 AM EDT) Only the most recent of2 resultswithin the time period is included. Sample type VENOUS 12/28/2024 7:14 AM [facility] pH, Venous 7.321 7.320 - 7.420 12/28/2024 7:14 AM [facility] pCO2, Venous 66.4(H) 35.0 - 50.0 mmHg 12/28/2024 7:14 AM [facility] pO2, Venous 103(H) 30 - 50 mmHg 12/28/2024 7:14 AM [facility] Base, Excess 5.0(H) 0.0 - 2.0 mmol/L 12/28/2024 7:14 AM [facility] HCO3, Venous 34.3(H) 20.0 - 24.0 mmol/L 12/28/2024 7:14 AM [facility] %O2 Saturation, Venous 97.0 % 12/28/2024 7:14 AM [facility] Rafael's test N/A 12/28/2024 7:14 AM [facility] Sample site N/A 12/28/2024 7:14 AM [facility] Insp. O2 conc. 8 % 12/28/2024 7:[address] [facility] Source Of Oxygen NC 12/28/2024 7:[address] [facility] Venous blood (substance) Venous blood / Unknown 12/28/2024 7:12 AM EDT 12/28/2024 7:14 AM EDT us Pavan Biggs MD LAB BLOOD ORDERABLES Final Resu lt [facility] [address] [place] [address], [place] * Hepatitis panel, acute (12/28/2024 6:00 AM EDT) [facility] HEPATITIS B SURF AG Non-Reacti ve Non-Reacti ve 12/28/2024 11:28 AM EDT [facility] HEPATITIS A IGM Non-Reacti ve Non-Reacti ve 12/28/2024 11:28 AM EDT [facility] HEPATITIS B CORE IGM Non-Reacti ve Non-Reacti ve 12/28/2024 11:28 AM EDT [facility] ANTI HCV W/PCR REFLX Non-Reacti ve Non-Reacti ve 12/28/2024 11:28 AM EDT [facility] Comment: If recent infection suspected, recommend repeat testing (>2 months). Gbhceg-ab-hwrkao ratio is <1.0. Blood Venous blood / Unknown Venipuncture / Unknown 12/28/2024 6:00 AM EDT 12/28/2024 6:38 AM EDT Deepika GAR LAB BLOOD ORDERABLES Final Result [facility] [address] [place] [address], [place] [phone] * (ABNORMAL) GI Panel(stool pathogen panel) (12/27/2024 9:30 PM EDT) [facility] CAMPYLOBACTER Not Detected Not Detected 12/28/2024 12:[facility] PLESIOMONAS Not Detected Not Detected 12/28/2024 12:20 [facility] SALMONELLA Not Detected Not Detected 12/28/2024 12:[address] [facility] VIBRIO Not Detected Not Detected 12/28/2024 12:[address] [facility] VIBRIO CHOLERAE Not Detected Not Detected 12/28/2024 12:[address] [facility] Y. ENTEROCOLITICA Not Detected Not Detected 12/28/2024 12:20 [facility] AGGREGATIVE E COLI Not Detected Not Detected 12/28/2024 12:[address] [facility] PATHOGENIC E COLI Detected(A) Not Detected 12/28/2024 12:[address] [facility] Comment:Enteropathogenic Esc herichia coli TOXIGENIC E COLI Not Detected Not Detected 12/28/2024 12:[address] [facility] SHIGA TOXIN E COLI Not Detected Not Detected 12/28/2024 12:[address] [facility] SHIGELLA-E COLI Not Detected Not Detected 12/28/2024 12:[address] [facility] CRYPTOSPORIDIUM Not Detected Not Detected 12/28/2024 12:[address] [facility] CYCLOSPORA Not Detected Not Detected 12/28/2024 12:[address] [facility] E HISTOLYTICA Not Detected Not Detected 12/28/2024 12:[address] [facility] GIARDIA LAMBLIA Not Detected Not Detected 12/28/2024 12:[address] [facility] ADENOVIRUS Not Detected Not Detected 12/28/2024 12:[address] [facility] ASTROVIRUS Not Detected Not Detected 12/28/2024 12:[address] [facility] NOROVIRUS Not Detected Not Detected 12/28/2024 12:[address] [facility] ROTAVIRUS A Not Detected Not Detected 12/28/2024 12:[address] [facility] SAPOVIRUS Not Detected Not Detected 12/28/2024 12:20 PM EDT [facility] Stool Feces / Unknown 12/27/2024 9 :30 PM EDT 12/28/2024 2:13 AM EDT Deepika Moorepatt P[facility] D[facility]ER[facility]MAN BODY FLUIDS AND STOOLS ORD ERABLES Final Result [facility] [address] [place] [address], [place] [phone] * Troponin I, High Sensitivity 1 Hour (12/27/2024 12:47 PM EDT) Only the most recent of2 resultswithin the time period is included. TROPONIN I, HIGH SENSITIVITY 13 <21 ng/L 12/27/2024 1:[address] [facility] Blood Venous blood / Unknown Venipuncture / Unknown 12/27/2024 12:47 PM EDT 12/27/2024 12:50 PM EDT Deepika Adeel FUNES-GROUNDMAN LAB BLOOD ORDERABLES Final Result Performing Organization Address City/[facility]/ZIP Co de Phone Number [address] [address], [place] * Vas venous duplex lwr bilateral [...] SENSITIVITY 12 <21 ng/L 12/[facility]2024 12:[facility] Blood Venous blood / Unknown Venipuncture / Unknown 12/27/2024 11:33 AM EDT 12/27/2024 11:35 AM EDT us Deepika Denis P[facility] LAB BLOOD ORDERABLES Final Result [address] [address], [place] * (ABNORMAL) Blood Gas, Arterial (12/27/2024 10:45 AM EDT) Only the most recent of2 resultswithin the time period is included. Sample type ARTERIAL 12/27/2024 10:50 AM [facility] pH, Arterial 7.301(L) 7.350 - 7.450 12/27/2024 10:50 AM [facility] pCO2, Arterial 54.1(H) 35.0 - 45.0 mmHg 12/27/2024 10:50 AM [facility] PO2, Arterial 108(H) 80 - 100 mmHg 12/27/2024 10:50 AM [facility] Base, Deficit -1.0(L) 0.0 - 2.0 mmol/L 12/27/2024 10:50 AM [facility] HCO3, Arterial 26.7(H) 22.0 - 26.0 mmol/L 12/27/2024 10:50 AM [facility] %O2 Saturation, Arterial 97.0 >90.0 % 12/27/2024 10:50 AM [facility] Rafael's test Pass 12/27/2024 10:50 AM [facility] SPO2 108 % 12/27/2024 10:50 AM [facility] Sample site L Rad 12/27/2024 10:50 AM [facility] Insp. O2 conc. 52 % 12/27/2024 10:50 AM [facility] Source Of Oxygen NC 12/27/2024 10:50 AM [facility] Arterial site (attribute) (Blood, Arterial) 12/27/2024 10:45 AM EDT 12/27/2024 10:50 AM EDT us Pavan Biggs MD LAB BLOOD ORDERABLES Final Resu lt [address] [address], [place] * Echo complete W/ contrast (12/27/2024 [...] Velocity Ratio 0.84 XCELERA Left Ventricle Mass 175.10659 [id number] 3 g XCELERA Interventricular Septum Diastolic Thickness [...] The left ventricular wall motion is normal. Deepika Denis [facility] CV ECHO ORDERABLES Final R esult * [...] of2 resultswithin the time period is included. CULTURE RESULTS NO GROWTH 5 DAYS 12/31/2024 11:01 AM EDT [facility] Blood Venous blood / Unknown Venipuncture / Unknown 12/26/2024 12:11 AM EDT 12/26/2024 12:13 AM EDT Narrative [facility] - 12/31/2024 11:01 AM EDT Suboptimal volume of blood collected, Results may be affected. Wilner Capps MD MICROBIOLOGY - GENERAL ORDERABL ES Final Result [facility] [address] [place] [address], [place] [phone] * Lactate w/ Reflex (12/26/2024 12:05 AM EDT) LACTATE W/REFLEX 1.5 0.4 - 2.0 mmol/L 12/26/2024 12:29 AM EDT [facility] Blood Venous blood / Unknown Venipuncture / Unknown 12/26/2024 12:05 AM EDT 12/26/2024 12:13 AM EDT Narrative [facility] - 12/26/2024 12:29 AM EDT Result did not trigger repeat Lactate, re-order if needed. us Wilner Capps MD LAB BLOOD ORDERABLES Final Resu lt Performing Organization Address City/[facility]/ZIP Co de Phone Number [address] [place] [address], [place] * APTT (12/26/2024 12:05 AM EDT) APTT 31 26 - 37 sec 12/26/2024 12:25 AM EDT [facility] Blood Venous blood / Unknown Venipuncture / Unknown 12/26/2024 12:05 AM EDT 12/26/2024 12:13 AM EDT us Wilner Capps MD LAB BLOOD ORDERABLES Final Resu lt [address] [place] [address], [place] * Protime & INR (12/26/2024 12:05 AM EDT) PROTIME 11.9 9.8 - 13.2 sec 12/26/2024 12:25 AM EDT [facility] INR 1.0 0.9 - 1.2 12/26/2024 12:25 AM EDT [facility] Blood Venous blood / Unknown Venipuncture / Unknown 12/26/2024 12:05 AM EDT 12/26/2024 12:13 AM EDT Wilner Capps MD LAB BLOOD ORDERABLES Final Resu lt Performing Organization Address [facility]/ZIP Co de Phone Number [facility] [address] [place] [address], [place] * (ABNORMAL) D-Dimer (12/26/2024 12:05 AM EDT) D DIMER 481(H) 1 - 255 ug/mL 12/26/2024 12:25 AM EDT [facility] Comment:Results >255 ng/mL D DU: Results [...] ORDERABLES Final Resu lt Performing Organization Address [facility] Co de Phone Number [facility] [address] [place] [address], [place] * B-type natriuretic peptide (12/26/2024 12:05 AM EDT) BNP 27 <=100 pg/mL 12/26/2024 12:45 AM EDT [facility] Blood Venous blood / Unknown Venipuncture / Unknown 12/26/2024 12:05 AM EDT 12/26/2024 12:13 AM EDT Wilner Capps MD LAB BLOOD ORDERABLES Final Resu lt [facility] [address] [place] [address], [place] * X-ray chest 1 view (12/26/2024 [...] Detected Not Detected 12/26/2024 11:18 AM EDT [facility] ADENOVIRUS Not Detected Not Detected 12/26/2024 11:18 AM EDT [facility] CORONAVIRUS 229E Not Detected Not Detected 12/26/2024 11:18 AM EDT [facility] CORONAVIRUS HKU1 Not Detected Not Detected 12/26/2024 11:18 AM EDT [facility] CORONAVIRUS NL63 Not Detected Not Detected 12/26/2024 11:18 AM EDT [facility] CORONAVIRUS OC43 Not Detected Not Detected 12/26/2024 11:18 AM EDT [facility] HUMAN METAPNEUVIRUS Not Detected Not Detected 12/26/2024 11:18 AM EDT [facility] RHINO/ENTEROVIRU S Not Detected Not Detected 12/26/2024 11:18 AM EDT [facility] INFLUENZA A Not Detected Not Detected 12/26/2024 11:18 AM EDT [facility] INFLUENZA B Not Detected Not Detected 12/26/2024 11:18 AM EDT [facility] PARAINFLUENZA 1 Not Detected Not Detected 12/26/2024 11:18 AM EDT [facility] PARAINFLUENZA 2 Not Detected Not Detected 12/26/2024 11:18 AM EDT [facility] PARAINFLUENZA 3 Detected(A) Not Detected 12/26/2024 11:18 AM EDT [facility] PARAINFLUENZA 4 Not Detected Not Detected 12/26/2024 11:18 AM EDT [facility] RESP SYNCYTIAL VIRUS Not Detected Not Detected 12/26/2024 11:18 AM EDT [facility] BORD PARAPERTUSSIS Not Detected Not Detected 12/26/2024 11:18 AM EDT [facility] BORDETELLA PERTUSSIS Not Detected Not Detected 12/26/2024 11:18 AM EDT [facility] CHLAM.PNEUMONIAE Not Detected Not Detected 12/26/2024 11:18 AM EDT [facility] MYCOPLASMA PNEUMONIAE Not Detected Not Detected 12/26/2024 11:18 AM EDT [facility] Swab Nasopharyngeal structure / Unknown 12/25/2024 [...] other pathogens. The agent(s) detected by the Bio[employer] RP2.1 may not be the definite cause [...] a patient with possible respiratory tract infection. lBair Sharpe P[facility] DRILLER[facility]MAN MICROBIOLOGY - GENERAL OR DERABLES Final Result [facility] [address] [place] [address], * SARS/FLU A+B/RSV by NAAT/Molecular (M4RT Collection Tube) (12/25/2024 11:58 PM EDT) [facility] FLU A PCR Negative Negative 12/26/2024 12:51 AM EDT [facility] FLU B PCR Negative Negative 12/26/2024 12:51 AM EDT [facility] RSV BY PCR Negative Negative 12/26/2024 12:51 AM EDT [facility] SARS COV 2 BY PCR Not Detected Not Detected 12/26/2024 12:51 AM EDT [facility] Swab Nasopharyngeal structure / Unknown 12/25/2024 11:58 PM EDT 12/26/2024 12:12 AM EDT [facility] - 12/26/2024 12:51 AM EDT [facility] Xpert [...] operators who are performing tests using either [employer] or Strobe systems and is limited to laboratories that [...] specimen repeat. Fact Sheet for Healthcare Providers: https://www.fda.gov/media/995474/download Fact Sheet for Patients: https://www.fda.gov/media/988861/download us Wilner Capps MD MICROBIOLOGY - GENERAL ORDERABL ES Final Result [facility] [address] [place] [address], from Last 3 Months Insurance [employer] Advance Directives * Full Code (Latest Code Status on File) Date Activated Date Inactivated Comments 12/26/2024 2:34 PM 12/31/2024 3:28 PM * Full Code Date Activated Date Inactivated Comments 12/26/2024 2:14 AM 12/26/2024 1:45 PM * Full Code Date Activated Date Inactivated Comments 06/24/2020 3:06 PM 06/27/2020 5:51 PM Care Teams Speech Assistant Relationship Specialty Start Date End Date Gilbert Kline MD PCP - General Family Medicine 04/25/20
--- OUTSIDE RECORDS SUMMARY | 2025-02-27 11:34 | XMS_ITS | Clinical Summary ---
Author Organization [facility] Address [address] [place] [address] Care Team Providers Care Geological Scout Name Role Phone Gilbert Kline MD Primary Care Provider [phone] Allergies Active Allergy Reactions Criticality Noted Date [...] drink = 0.6 oz pur e alcohol) DC Safety & Environment Answer Date Rec orded [...] 11/11/2022 2:31 PM EDT Plan of Treatment Upcoming Encounters Date Type Department Care Team (Late st Contact Info) Description 03/01/2025 10:15 AM EDT Consult [facility] [address] [place] [phone] Neil Fiore MD [address] [place] [address] Health Maintenance Due Date Last Done Comments CT Colonography 1966 Colonoscopy 1966 Colorectal Cancer Screening 1966 FIT-DNA 1966 FIT 1966 FOBT 1966 Medicare Annual Wellness (AWV) 1966 Sigmoidoscopy 1966 Depression Screening 1978 Hepatitis B Vaccines (1 of 3 - 19+ 3-dose series) 1985 Adult Tetanus 1988 Zoster Vaccines (1 of 2) 2016 COVID-19 Vaccine (4 - 2024-2 6 season) 2025 05/07/2021, 07/31/2020, 07/10/2020 Influenza Vaccine (#1) 2025 6, 04/18/2015 HIB [...] this topic Medical Devices Implanted Type Area Health Information Internship Device Identifier Shelf Expiration Date Model / Serial / Lot Tissue Vivigen, [facility] - [id number] - [id number] Implanted:Qty: 1 on 03/13/2022 by Cheikh Galarza MD at [facility] Allograft Tissue Left: Spine Lumbar LIFENET [id number] 11/14/2022 BL-1500-0 [id number] / Tissue Vivigen, 10 - [id number] - [id number] Implanted:Qty: 1 on 03/13/2022 by Cheikh Galarza MD at [facility] Allograft Tissue Left: Spine Lumbar LIFENET BL-1500-003 11/28/2022 BL-1500-0 [id number] / Tiss Bone,Canc,Chip s,Pres,60cc - [id number] - [id number] Implanted:Qty: 1 on 03/13/2022 by Cheikh Galarza MD at [facility] Bone Left: Spine Lumbar LIFENET PCAN60 12/12/2024 PCAN60 / [id number] / Tiss Allograft,Tp11 mm,6x1x2.5 - [id number] - [id number] Implanted:Qty: 1 on 03/13/2022 by Cheikh Galarza MD at [facility] Bone Left: Spine Lumbar MTF 01/14/2025 [id number] / [id number] / Collar,Ti,Groo ves - [id number] Implanted:Qty: 4 on 03/13/2022 by Cheikh Galarza MD at [facility] Clamp Left: Spine Lumbar ESTEPHANIA/ESTEPHANIA ORTHO [id number] [id number] / / Ti-Nut,11m-Wid th,Across-Flat s - [id number] Implanted:Qty: 4 on 03/13/2022 by Cheikh Galarza MD at [facility] Nut Left: Spine Lumbar ESTEPHANIA/ESTEPHANIA ORTHO [id number] [id number] / / Agustin,6.0m,Ti-[address] rd,50m - [id number] Implanted:Qty: 2 on 03/13/2022 by Cheikh Galarza MD at [facility] Pin Left: Spine Lumbar ESTEPHANIA/ESTEPHANIA ORTHO [id number] 498.102 / / Screw,Side-Ope n,7.0m,50mm - [id number] Implanted:Qty: 4 on 03/13/2022 by Cheikh Galarza MD at [facility] Screw Left: Spine Lumbar ESTEPHANIA/ESTEPHANIA ORTHO [id number] 498.750 / / Insurance [employer] Advance Directives * Full Code (Latest Code Status on File) Date Activated Date Inactivated Comments 03/13/2022 10:59 AM 03/14/2022 6:36 PM Care Teams Geological Scout Relationship Specialty Start Date End Date Gilbert Kline MD [address] [place] [address] PCP - General 03/04/22
--- OUTSIDE RECORDS SUMMARY | 2025-02-27 11:34 | XMS_ITS | Encounter Summary ---
Author Organization [facility] Address [address] [place] [address] Care Team Providers Care Commercial Fisher Name Role Phone Gilbert Kline MD Primary Care Provider [phone] Source Comments In the event this information is protected by the Federal Confidentiality of Alcohol and Drug AbusePatient Records regulations: The Federal rules restrict any use of the information to criminally investigate or prosecute any alcohol or drug abuse patient.[facility] Encounter Details Date Type Department Care Team (Late st Contact Info) Description 10/12/2024 Patient Msg Neurology [address] [place], [place] [id number] Provider, Ccf Please confirm your sleep study [...] N ot on file 06/04/2020 Data from: [email or web address] Last address used for calculation Not on [...] on filedocumented in this encounter Care Teams Commercial Fisher Relationship Specialty Start Date End Date Gilbert Kline MD PCP - General Family Medicine 01/11/18 documented as of this encounter
--- OUTSIDE RECORDS SUMMARY | 2025-02-27 11:34 | XMS_ITS | Encounter Summary ---
Author Organization [employer] Address [id number] [address] [place] [address] Care Team Providers Care Baggage Screener Name Role Phone Gilbert Kline MD Primary Care Provider [phone] Encounter Details Date Type Department Care Team (Late Contact Info) Description 05/27/2020 Orders Only [facility] [address] [place] [address] Luz Espinosa, PA-C [address] [facility] [address] [place] [address] Social History Tobacco Use Types [...] Description 03/15/2025 3:00 PM EDT Office Visit [facility] Pulmonary/Sleep Medicine [address] [place] [phone] Diane Khan, DO [address] [address] 04/03/2025 8:00 PM EDT Clinical Support [facility] - Sleep Disorders [address] [place] [phone] documented as of this encounter Visit Diagnoses [...] documented as of this encounter Care Teams Baggage Screener Relationship Specialty Start Date End Date Gilbert Kline MD PCP - General Family Medicine 04/25/20 documented as of this encounter
--- OUTSIDE RECORDS SUMMARY | 2025-02-27 11:34 | XMS_ITS | Encounter Summary ---
Author Organization [employer] tem Address [id number] [address] [place] [address] Care Team Providers Care Cutting And Printing Machine Operator Name Role Phone Gilbert Kline MD Primary Care Provider [phone] Encounter Details Date Type Department Care Team (Late st Contact Info) Description 12/27/2024 Telephone [facility] - Diabetes [address] [place] [phone] Kiera Kidd CMA Social History Tobacco Use Types Packs/Day Years Used Date Smoking Tobacco: Never Smokeless Tobacco: Never Alcohol Use Standard Drinks/Week Comments Never 0 (1 standard drink = 0.6 oz pur e alcohol) [facility] Utilities Answer Date Recorded In the [...] Recorded Do you need help finding a [facility] career center and/or a [...] education for Rios Bartlett 1966. However per [facility] Guidelines the services requested need to [...] Office Visit [facility] [address] [address] Diane Khan, DO [address] [address] 04/03/2025 8:00 PM EDT Clinical Support [facility] - Sleep Disorders [address] [place] [address] documented as of this encounter [...] documented as of this encounter Care Teams Cutting And Printing Machine Operator Relationship Specialty Start Date End Date Gilbert Kline MD PCP - General Family Medicine 04/25/20 documented as of this encounter
--- OUTSIDE RECORDS SUMMARY | 2025-02-27 11:34 | XMS_ITS | Encounter Summary ---
Author Organization [facility] [employer] [facility] tem Address [id number] [address] [place] [address] Care Team Providers Care Sales Associate Fishing Name Role Phone Gilbert Kline MD Primary Care Provider [phone] Encounter Details Date Type Department Care Team ([facility] Contact Info) Description 05/09/2020 Orders Only [facility] - Pre Admit [address] [facility] [place] [address] Padmini Heck RN Social History [...] Upcoming Encounters Date Type Department Care Team ([facility] Contact Info) Description 03/15/2025 3:00 PM EDT Office Visit [facility] Pulmonary/Sleep Medicine [address] [place] [address] Diane Khan, DO [address] [address] 04/03/2025 8:00 PM EDT Clinical Support [facility] - Sleep Disorders [address] [place] [phone] documented as of this encounter Visit Diagnoses [...] documented as of this encounter Care Teams Sales Associate Fishing Relationship Specialty Start Date End Date Gilbert Kline MD PCP - General Family Medicine 04/25/20 documented as of this encounter
--- OUTSIDE RECORDS SUMMARY | 2025-02-27 11:41 | XMS_ITS | CCD ---
Author Organization [facility] Care Team Providers Care Color Maker Formulator Name Role Phone OLIVIA ZAMAN Unavailable Unavailable MARY KLINE Unavailable Unavailable OLIVIA ZAMAN Unavailable Unavailable MARY KLINE Unavailable Unavailable Mary Kline MD Primary Care Provider [phone] MARY KLINE Primary Care Unavailable MARY KLINE Primary Care Unavailable MARY KLINE Referring Unavailable ELROSA ROJASSEIN K Admitting Unavailable ELGAFIndio ARIEL K Attending Unavailable HOY ., DR HERNANDEZ Admitting Unavailable HOY ., DR HERNANDEZ Attending Unavailable HOY ., DR HERNANDEZ Primary Care Unavailable HOY ., DR HERNANDEZ Consulting Unavailable HOY ., DR HERNANDEZ Admitting Unavailable HOY ., DR HERNANDEZ Attending Unavailable HOY ., DR HERNADNEZ Primary Care Unavailable HOY ., DR HERNANDEZ Consulting Unavailable OLIVIA BECKER Consulting Unavailable HOY ., DR HERNANDEZ Admitting Unavailable HOY ., DR HERNANDEZ Attending Unavailable HOY ., DR HERNANDEZ Primary Care Unavailable HOY ., DR HERNANDEZ Consulting Unavailable HOY ., DR HERNANDEZ Admitting Unavailable HOY ., DR HERNANDEZ Attending Unavailable HOY ., DR HERNANDEZ Primary Care Unavailable HOY ., DR HERNANDEZ Consulting Unavailable Mary Kline Primary Care Physician Mary Kline MD Primary Care Provider [phone] LONDON CARLSON Attending Unavailable MARY KLINE Primary Care Unavailable TRAY YOUSSEF Attending Unavailab le Mary Kline Referring Unavailable Mary Kline MD Primary Care Provider [phone] ALEJANDRO BIGGS Admitting Unavailable ALEJANDRO BIGGS Attending Unavailable ALEJANDRO BIGGS Referring Unavailable MARY KLINE Primary Care Unavailable JEANE FOSTER Consulting Unavailable OLIVIA HACKETT Referring Unavailable MARY KLINE Primary Care Unavailable MARY KLINE Primary Care Unavailable EDGARD DIEHL Attending Unavailable CANDIDO SEVILLA Admitting Unavailable MANSOOR DENIS Referring Unavailable MARY KLINE Primary Care Unavailable DIANE KHAN Attending Unavailable DIANE KHAN Referring Unavailable MARY KLINE Primary Care Unavailable Allergies Allergy Classification Reported Allergen(s) Allergy Type Date of Onset Reaction(s) Facility Opioid Agonists (1 source) Morphine Drug Allergy 02-23-2018 [facility] (6 sources) Morphine; Translations: [MORPHINE] Drug Allergy 01-28-2018 [facility] (8 sources) Morphine; Translations: [morphine] Drug Allergy 01-28-[address] [facility] Medications Current Medications Medication Drug Class(es) Dates [...] 02/12/2021 Active benzonatate 100 mg oral capsule (4 sources) Non-narcotic Antitussive Start: 01-01-2025 take 1 [...] Active hydrOXYzine hydrochloride 25 mg oral tablet (3 sources) Antihistamine Start: 01-04-2025 take 1 tablet by mouth once as needed for anxiety hydrOXYzine (ATARAX) 25 mg tablet Take 1 tablet (25 mg total) by mouth once as needed for anxiety. 01/04/2025 Active ketoconazole 20 mg/ml topical cream (3 sources) Azole Antifungal Start: 11-02-2024 ketoconazole (NIZORAL) [...] Status: Ordered predniSONE 10 mg oral tablet (4 sources) Start: 01-01-2025 predniSONE (DELTASONE) 10 mg [...] te Episodic/Chronic Acute and unspecified renal failure (5 sources) Acute renal failure syndrome; Translations: [Acute kidney failure, unspecified] Onset: 5 12-26-2024 Episodic Acute bronchitis (1 source) Acute bronchitis, unspecified; Translations: [Acute bronchitis, unspecified] Onset: 5 Episodic Anxiety disorders (9 sources) Anxiety; Translations: [Claustrophobia] Onset: 5 08-08-2021 Chronic Calculus of urinary tract (2 sources) History of calculus of kidney 08-08-2021 Episodic Chronic obstructive pulmonary disease and bronchiectasis (6 sources) Bronchitis; Translations: [Bronchitis, not specified as acute or chronic] Onset: 5 12-26-2024 Episodic Diabetes mellitus without complication (1 source) Other abnormal glucose; Translations: [OTHER ABNORMAL GLUCOSE] Onset: 3 Episodic Disorders of lipid metabolism (1 source) Hyperlipidemia, unspecified; Translations: [HYPERLIPIDEMIA UNSPECIFIED] Onset: 3 Chronic Esophageal disorders (5 sources) Gastroesophageal reflux disease; Translations: [Gastro-esophageal reflux disease without esophagitis] Onset: 2 12-26-2024 Chronic Genitourinary symptoms and ill-defined conditions (7 sources) Nocturia; Translations: [Nocturia] Onset: 5 08-04-2024 Episodic Gout and other crystal arthropathies (7 sources) Gout; Translations: [Gout, unspecified] Onset: 5 08-08-2021 Chronic Headache; including migraine (5 sources) Migraine; Translations: [Migraine, unspecified, not intractable, without status migrainosus] Onset: 5 12-26-2024 Chronic Intestinal infection (5 sources) Enteropathogenic Escherichia coli gastrointestinal tract infection; Translations: [Enteropathogenic Escherichia coli infection] Onset: 5 12-28-2024 Episodic Mood disorders (9 sources) Depressive disorder; Translations: [Severe major depression] [...] HTN] Onset: 3 Episodic Other circulatory disease (7 sources) Elevated blood-pressure reading without diagnosis of [...] Episodic Other ear and sense organ disorders (5 sources) Hearing loss; Translations: [Unspecified hearing loss, unspecified ear] Onset: 0 04-25-2020 Chronic Other gastrointestinal disorders (5 sources) Acute diarrhea; Translations: [Diarrhea, unspecified] Onset: [...] Onset: 5 Episodic Other lower respiratory disease (5 sources) Hypoxia; Translations: [Hypoxemia] Onset: 5 12-26-2024 Episodic Other lower respiratory disease (5 sources) Chest pain on breathing; Translations: [Chest [...] Onset: 3 Episodic Other nervous system disorders (7 sources) Neuropathy; Translations: [Polyneuropathy, unspecified] Onset: 5 [...] arthroplast Other nutritional; endocrine; and metabolic disorders (7 sources) Body mass index 40+ - severely obese; Translations: [Morbid (severe) obesity due to excess calories] Onset: 5 08-13-2021 Chronic Other nutritional; endocrine; and metabolic disorders (7 sources) Morbid obesity; Translations: [Morbid (severe) obesity due to excess calories] Onset: 5 12-16-2022 Chronic Other nutritional; endocrine; and metabolic disorders (5 sources) Hypomagnesemia; Translations: [Hypomagnesemia] Onset: 5 12-26-2024 Chronic Other nutritional; endocrine; and metabolic disorders (1 source) Morbid (severe) obesity due to excess calories; Translations: [Morbid (severe) obesity due to excess calories] Onset: 5 Chronic Other nutritional; endocrine; and metabolic disorders (5 sources) Overweight; Translations: [OVERWEIGHT] Onset: 3 Episodic Other screening for suspected conditions (not mental disorders or infectious disease) (5 sources) Other specified abnormal findings of blood chemistry; Translations: [Other abnormal blood chemistry] Onset: 5 12-27-2024 Episodic Other skin disorders (2 sources) Hypertrophic condition of skin; Translations: [Other hypertrophic disorders of the skin] Onset: 3 Episodic Other skin disorders (2 sources) Multiple skin tags 12-16-2022 Episodic Other upper respiratory disease (7 sources) Deviated nasal septum; Translations: [Deviated nasal septum] Onset: 5 08-08-2021 Episodic Other upper respiratory disease (7 sources) Hypertrophy of nasal turbinates; Translations: [Hypertrophy of nasal turbinates] Onset: 5 08-08-2021 Episodic Residual codes; unclassified (3 sources) Obstructive sleep apnea (adult) (pediatric); Translations: [OBSTRUCTIVE SLEEP APNEA] Onset: 3 Chronic Residual codes; unclassified (13 sources) Obstructive sleep apnea syndrome; Translations: [Obstructive sleep apnea (adult) (pediatric)] Onset: 0 08-08-2021 Chronic Residual codes; unclassified (1 source) Frequent night waking; Translations: [Insomnia, unspecified] 08-04-2024 Episodic Residual codes; unclassified (1 source) Insomnia, unspecified; Translations: [Frequent nocturnal awakening] Onset: 5 Episodic Residual codes; unclassified (5 sources) Other specified health status; Translations: [Other specified conditions influencing health status] Onset: 5 12-26-2024 Episodic Respiratory failure; insufficiency; arrest (adult) (7 sources) Acute hypoxemic and hypercapnic respiratory failure; Translations: [Acute respiratory failure with hypoxia] Onset: 5 12-27-2024 Episodic Spondylosis; intervertebral disc disorders; other back problems (5 sources) Cervical spondylosis; Translations: [Prolapsed lumbar intervertebral disc] Onset: 8 08-08-2021 Chronic Viral infection (6 sources) Parainfluenza; Translations: [Other viral infections of unspecified site] Onset: 5 12-27-2024 Episodic Past or Other Problems Problem Classification Problem Date Documented Da te Episodic/Chronic Disorders of teeth and jaw (5 sources) Unspecified cyst of jaw; Translations: [Other cysts of jaws] Onset: 12-24-2020 12-24-2020 Episodic Mood disorders (5 sources) Mood disorders Onset: 06-24-2020 06-24-2020 Other [...] Spondylosis; intervertebral disc disorders; other back problems (9 sources) Chronic low back pain; Translations: [Low back pain] Onset: 09-13-2017 Episodic Results Test Name Value Interpretation Reference Range Facility CBC WITH AUTO DIFFERENTIALon 12-31-2024 BASOPHILS ABSOLUTE COUNT (10*3/UL) BY AUTOMATED COUNT 0.1 10*3/uL Normal 0.0-0.2 [facility] Comment on above: Performed By: #### C BCA #### [facility]) [address] [place] [address] VIR BASOPHILS RELATIVE PERCENT BY AUTOMATED COUNT 0.5 % Normal [facility] Comment on above: Performed By: #### C BCA #### [facility]) [address] [place] [address] VIR CELLAVISION DIFFERENTIAL TYPE AUTOMATED DIFFERENTIAL Normal [facility] Comment on above: Performed By: #### C BCA #### [facility]) [address] [place] [address] VIR Eosinophils (Bld) [#/Vol] 0.0 10*3/uL Normal 0.0-0.4 [facility] Comment on above: Performed By: #### C BCA #### [facility]) [address] [place] [address] VIR EOSINOPHILS RELATIVE PERCENT BY AUTOMATED COUNT 0.0 % Normal [facility] Comment on above: Performed By: #### C BCA #### [facility]) [address] [place], [place] [id number] VIR Erythrocyte distribution width (RBC) [Ratio] 14.4 % Normal 11.5-15 [facility] Comment on above: Performed By: #### C BCA #### [facility]) [address] [place] [address] VIR Hematocrit (Bld) [Volume fraction] 43.0 % Normal 39-50 [facility] Comment on above: Performed By: #### C BCA #### [facility]) [address] [place] [address] VIR Hemoglobin (Bld) [Mass/Vol] 14.3 g/dL Normal 13-17 [facility] Comment on above: Performed By: #### C BCA #### [facility]) [address] [place] [address] VIR LYMPHOCYTES ABSOLUTE COUNT (10*3/UL) BY AUTOMATED COUNT 2.0 10*3/uL Normal 1.0-3.5 [facility] Comment on above: Performed By: #### C BCA #### [facility]) [address] [place] [address]841 VIR LYMPHOCYTES RELATIVE PERCENT BY AUTOMATED COUNT 15.5 % Normal [facility] Comment on above: Performed By: #### C BCA #### [facility]) [address] [place] [address]148 VIR MCH (RBC) [Entitic mass] 30.8 pg Normal 27-34 [facility] Comment on above: Performed By: #### C BCA #### [facility]) [address] [place] [address]36 VIR MCHC (RBC) [Mass/Vol] 33.3 g/dL Normal 32-36 [facility] Comment on above: Performed By: #### C BCA #### [facility]) [address] [place] [address] 17722 VIR MCV (RBC) [Entitic vol] 92 fL Normal 80-100 [facility] Comment on above: Performed By: #### C BCA #### [facility]) [address] [place] [address]220 VIR MONOCYTES ABSOLUTE COUNT (10*3/UL) BY AUTOMATED COUNT 0.9 10*3/uL Normal 0.0-0.9 [facility] Comment on above: Performed By: #### C BCA #### [facility]) [address] [place] [address] 31710 VIR MONOCYTES RELATIVE PERCENT BY AUTOMATED COUNT 6.7 % Normal [facility] Comment on above: Performed By: #### C BCA #### [facility]) [address] [place] [address] 29096 VIR NEUTROPHILS ABSOLUTE COUNT BY AUTOMATED COUNT 10.2 10*3/uL High 1.5-6.6 [facility] Comment on above: Performed By: #### C BCA #### [facility]) [address] [place] [address] 87830 VIR NEUTROPHILS RELATIVE PERCENT BY AUTOMATED COUNT 77.3 % Normal [facility] Comment on above: Performed By: #### C BCA #### [facility]) [address] [place] [address] 90916 VIR Platelet mean volume (Bld) [Entitic vol] 6.7 fL Low 7-12 [facility] Comment on above: Performed By: #### C BCA #### [facility]) [address] [place] [address] 33792 VIR Platelets (Bld) [#/Vol] 203 10*3/uL Normal 150-450 [facility] Comment on above: Performed By: #### C BCA #### [facility]) [address] [place] [address] 97573 VIR RBC COUNT 4.65 X10E12/L Normal 4.1-5.7 [facility] Comment on above: Performed By: #### C BCA #### [facility]) [address] [place] [address] 15482 VIR WBC (Bld) [#/Vol] 13.2 10*3/uL High 4-11 [facility] Comment on above: Performed By: #### C BCA #### [facility]) [address] [place] [address] 69511 VIR COMPREHENSIVE METABOLIC PANE Dhiraj 12-31-2024 Albumin [Mass/Vol] 2.9 g/dL Low 3.2-5.3 [facility] Comment on above: Performed By: #### C BCA #### [facility]) [address] [place] [address] 78877 VIR ALP [Catalytic activity/Vol] 44 U/L Normal 39-130 [facility] Comment on above: Performed By: #### C BCA #### [facility]) [address] [place] [address] 04812 VIR ALT [Catalytic activity/Vol] 47 U/L High <=40 [facility] Comment on above: Performed By: #### C BCA #### [facility]) [address] [place], [place] [id number] VIR Anion gap [Moles/Vol] 5 mmol/L Normal 5-15 [facility] Comment on above: Performed By: #### C BCA #### [facility]) [address] [place], [place] [id number] VIR AST [Catalytic activity/Vol] 25 U/L Normal <=41 [facility] Comment on above: Performed By: #### C BCA #### [facility]) [address] [place], [place] [address] VIR Bilirubin [Mass/Vol] 0.8 mg/dL Normal 0.3-1.2 [facility] Comment on above: Performed By: #### C BCA #### [place] [id number] VIR Calcium [Mass/Vol] 8.5 mg/dL Normal 8.5-10.5 [facility] Comment on above: Performed By: #### C BCA #### [facility]) [address] [place], [place] [address] VIR Chloride [Moles/Vol] 103 mmol/L Normal 98-109 [facility] Comment on above: Performed By: #### C BCA #### [facility]) [address] [place], [place] [address] VIR CO2 [Moles/Vol] 33 mmol/L High 22-32 [facility] Comment on above: Performed By: #### C BCA #### [facility]) [address] [place] [address] 37730 VIR Creatinine [Mass/Vol] 1.06 mg/dL Normal 0.70-1.20 [facility] Comment on above: Result Comment: METH OD TRACEABLE TO IDMS STANDARD Performed By: #### C BCA #### [facility]) [address] [place] [address] 34219 VIR GFR/1.73 sq M.predicted among non-blacks MDRD (S/P/Bld) [Vol rate/Area] 81 mL/min/{1.73_m2} Normal >=60 [facility] Comment on above: Result Comment: eGFR not reported due to non-numeric value for Creatinine. Reported eGFR is based on the CKD-EPI 2020 equation that does not use a race coefficient. Performed By: #### C BCA #### [address] [address] VIR Glucose [Mass/Vol] 124 mg/dL High 65-99 [facility] Comment on above: Performed By: #### C BCA #### [facility]) [address] [place] [address] 79193 VIR Potassium [Moles/Vol] 4.6 mmol/L Normal 3.5-5.0 [facility] Comment on above: Performed By: #### C BCA #### [address] [address] VIR Protein [Mass/Vol] 5.6 g/dL Low 6.0-8.0 [facility] Comment on above: Performed By: #### C BCA #### [facility]) [address] [place] [address] 13501 VIR Sodium [Moles/Vol] 141 mmol/L Normal 134-146 [facility] Comment on above: Performed By: #### C BCA #### [facility]) [address] [place] [address] 02918 VIR Urea nitrogen [Mass/Vol] 23 mg/dL Normal 5-23 [facility] Comment on above: Performed By: #### C BCA #### [facility]) [address] [place] [address] 774[address] VIR MAGNESIUMon 12-31-2024 Magnesium [Mass/Vol] 2.3 mg/dL Normal 1.8-2.6 [facility] Comment on above: Performed By: #### C BCA #### [facility]) [address] [place], [place] [address] VIR CBC WITH AUTO DIFFERENTIALon 12-30-2024 BASOPHILS ABSOLUTE COUNT (10*3/UL) BY AUTOMATED COUNT 0.1 10*3/uL Normal 0.0-0.2 [facility] Comment on above: Performed By: #### C BCA #### [place] [id number] VIR BASOPHILS RELATIVE PERCENT BY AUTOMATED COUNT 0.6 % Normal [facility] Comment on above: Performed By: #### C BCA #### [facility]) [address] [place] [address] VIR CELLAVISION DIFFERENTIAL TYPE AUTOMATED DIFFERENTIAL Normal [facility] Comment on above: Performed By: #### C BCA #### [facility] ([address] [address] VIR Eosinophils (Bld) [#/Vol] 0.0 10*3/uL Normal 0.0-0.4 [facility] Comment on above: Performed By: #### C BCA #### [facility]) [address] [place] [address] 28556 VIR EOSINOPHILS RELATIVE PERCENT BY AUTOMATED COUNT 0.0 % Normal [facility] Comment on above: Performed By: #### C BCA #### [facility]) [address] [place] [address] 94896 VIR Erythrocyte distribution width (RBC) [Ratio] 14.5 % Normal 11.5-15 [facility] Comment on above: Performed By: #### C BCA #### [place] [address] [address] VIR Hematocrit (Bld) [Volume fraction] 45.8 % Normal 39-50 [facility] Comment on above: Performed By: #### C BCA #### [facility]) [address] [place] [address]691 VIR Hemoglobin (Bld) [Mass/Vol] 15.5 g/dL Normal 13-17 [facility] Comment on above: Performed By: #### C BCA #### [facility]) [address] [place] [address] 19412 VIR LYMPHOCYTES ABSOLUTE COUNT (10*3/UL) BY AUTOMATED COUNT 1.6 10*3/uL Normal 1.0-3.5 [facility] Comment on above: Performed By: #### C BCA #### [address] [address] VIR LYMPHOCYTES RELATIVE PERCENT BY AUTOMATED COUNT 13.7 % Normal [facility] Comment on above: Performed By: #### C BCA #### [facility]) [address] [place] [address] 96630 VIR MCH (RBC) [Entitic mass] 31.2 pg Normal 27-34 [facility] Comment on above: Performed By: #### C BCA #### [facility] ([address] [address] VIR MCHC (RBC) [Mass/Vol] 33.8 g/dL Normal 32-36 [facility] Comment on above: Performed By: #### C BCA #### [facility]) [address] [place] [address]10 VIR MCV (RBC) [Entitic vol] 92 fL Normal 80-100 [facility] Comment on above: Performed By: #### C BCA #### [facility]) [address] [place] [address]648 VIR MONOCYTES ABSOLUTE COUNT (10*3/UL) BY AUTOMATED COUNT 0.6 10*3/uL Normal 0.0-0.9 [facility] Comment on above: Performed By: #### C BCA #### [facility]) [address] [place] [address] 60679 VIR MONOCYTES RELATIVE PERCENT BY AUTOMATED COUNT 4.9 % Normal [facility] Comment on above: Performed By: #### C BCA #### [facility]) [address] [place] [address] 79794 VIR NEUTROPHILS ABSOLUTE COUNT BY AUTOMATED COUNT 9.4 10*3/uL High 1.5-6.6 [facility] Comment on above: Performed By: #### C BCA #### [facility]) [address] [place] [address] 89256 VIR NEUTROPHILS RELATIVE PERCENT BY AUTOMATED COUNT 80.8 % Normal [facility] Comment on above: Performed By: #### C BCA #### [facility]) [address] [place] [address]351 VIR Platelet mean volume (Bld) [Entitic vol] 7.3 fL Normal 7-12 [facility] Comment on above: Performed By: #### C BCA #### [facility]) [address] [place] [address] 49936 VIR Platelets (Bld) [#/Vol] 193 10*3/uL Normal 150-450 [facility] Comment on above: Performed By: #### C BCA #### [facility]) [address] [place] [address] 02811 VIR RBC COUNT 4.96 X10E12/L Normal 4.1-5.7 [facility] Comment on above: Performed By: #### C BCA #### [facility]) [address] [place] [address] 38121 VIR WBC (Bld) [#/Vol] 11.7 10*3/uL High 4-11 [facility] Comment on above: Performed By: #### C BCA #### [facility]) [address] [place] [address] VIR COMPREHENSIVE METABOLIC PANE Dhiraj 12-30-2024 Albumin [Mass/Vol] 3.4 g/dL Normal 3.2-5.3 [facility] Comment on above: Performed By: #### C BCA #### [facility]) [address] [place] [address] 34592 VIR ALP [Catalytic activity/Vol] 53 U/L Normal 39-130 [facility] Comment on above: Performed By: #### C BCA #### [facility]) [address] [place] [address] 20183 VIR ALT [Catalytic activity/Vol] 58 U/L High <=40 [facility] Comment on above: Performed By: #### C BCA #### [facility]) [address] [place] [address] 06737 VIR Anion gap [Moles/Vol] 5 mmol/L Normal 5-15 [facility] Comment on above: Performed By: #### C BCA #### [facility]) [address] [place] [address] 37020 VIR AST [Catalytic activity/Vol] 36 U/L Normal <=41 [facility] Comment on above: Performed By: #### C BCA #### [facility]) [address] [place] [address] 17842 VIR Bilirubin [Mass/Vol] 0.7 mg/dL Normal 0.3-1.2 [facility] Comment on above: Performed By: #### C BCA #### [facility]) [address] [place] [address] 71914 VIR Calcium [Mass/Vol] 8.4 mg/dL Low 8.5-10.5 [facility] Comment on above: Performed By: #### C BCA #### [facility]) [address] [place] [address] 89327 VIR Chloride [Moles/Vol] 103 mmol/L Normal 98-109 [facility] Comment on above: Performed By: #### C BCA #### [facility] ([facility]) [address] [place] [address] 82427 VIR CO2 [Moles/Vol] 31 mmol/L Normal 22-32 [facility] Comment on above: Performed By: #### C BCA #### [facility] ([facility]) [address] [place] [address] 64156 VIR Creatinine [Mass/Vol] 1.03 mg/dL Normal 0.70-1.20 [facility] Comment on above: Result Comment: METH OD TRACEABLE TO IDMS STANDARD Performed By: #### C BCA #### [facility] ([facility]) [address] [place] [address] 80210 VIR GFR/1.73 sq M.predicted among non-blacks MDRD (S/P/Bld) [Vol rate/Area] 84 mL/min/{1.73_m2} Normal >=60 [facility] Comment on above: Result Comment: eGFR not reported due to non-numeric value for Creatinine. Reported eGFR is based on the CKD-EPI 2021 equation that does not use a race coefficient. Performed By: #### C BCA #### [facility] ([facility]) [address] [place] [address] 57836 VIR Glucose [Mass/Vol] 147 mg/dL High 65-99 [facility] Comment on above: Performed By: #### C BCA #### [facility] ([facility]) [address] [place] [address] 05920 VIR Potassium [Moles/Vol] 4.4 mmol/L Normal 3.5-5.0 [facility] Comment on above: Performed By: #### C BCA #### [facility] ([facility]) [address] [place] [address] 22360 VIR Protein [Mass/Vol] 6.4 g/dL Normal 6.0-8.0 [facility] Comment on above: Performed By: #### C BCA #### [facility]) [address] [place] [address] 48690 VIR Sodium [Moles/Vol] 139 mmol/L Normal 134-146 [facility] Comment on above: Performed By: #### C BCA #### [facility] ([facility]) [address] [place], [place] [id number] VIR Urea nitrogen [Mass/Vol] 26 mg/dL High 5-23 [facility] Comment on above: Performed By: #### C BCA #### [facility] ([facility]) [address] [place], [place] [id number] VIR MAGNESIUMon 12-30-2024 Magnesium [Mass/Vol] 2.2 mg/dL Normal 1.8-2.6 [facility] Comment on above: Performed By: #### C BCA #### [facility]) [address] [place], [place] [id number] VIR CBC WITH AUTO DIFFERENTIALon 12-29-2024 BASOPHILS ABSOLUTE COUNT (10*3/UL) BY AUTOMATED COUNT 0.0 10*3/uL Normal 0.0-0.2 [facility] Comment on above: Performed By: #### A BG #### [facility] ([facility]) [address] [place], [place] [id number] VIR BASOPHILS RELATIVE PERCENT BY AUTOMATED COUNT 0.2 % Normal [facility] Comment on above: Performed By: #### A BG #### [facility] ([facility]) [address] [place], [place] [id number] VIR CELLAVISION DIFFERENTIAL TYPE AUTOMATED DIFFERENTIAL Normal [facility] Comment on above: Performed By: #### A BG #### [facility] ([facility]) [address] [place] [address] 83314 VIR Eosinophils (Bld) [#/Vol] 0.0 10*3/uL Normal 0.0-0.4 [facility] Comment on above: Performed By: #### A BG #### [facility]) [address] [place] [address] 15617 VIR EOSINOPHILS RELATIVE PERCENT BY AUTOMATED COUNT 0.0 % Normal [facility] Comment on above: Performed By: #### A BG #### [facility] [address] [place] [address] 57817 VIR Erythrocyte distribution width (RBC) [Ratio] 14.6 % Normal 11.5-15 [facility] Comment on above: Performed By: #### A BG #### [facility] ([facility]) [address] [place] [address] 71604 VIR Hematocrit (Bld) [Volume fraction] 44.2 % Normal 39-50 [facility] Comment on above: Performed By: #### A BG #### [facility] ([facility]) [address] [place] [address] 90870 VIR Hemoglobin (Bld) [Mass/Vol] 15.1 g/dL Normal 13-17 [facility] Comment on above: Performed By: #### A BG #### [facility]) [address] [place] [address] 38841 VIR LYMPHOCYTES ABSOLUTE COUNT (10*3/UL) BY AUTOMATED COUNT 1.6 10*3/uL Normal 1.0-3.5 [facility] Comment on above: Performed By: #### A BG #### [facility] ([facility]) [address] [place] [address] 93708 VIR LYMPHOCYTES RELATIVE PERCENT BY AUTOMATED COUNT 14.1 % Normal [facility] Comment on above: Performed By: #### A BG #### [facility] ([facility]) [address] [place] [address] 30143 VIR MCH (RBC) [Entitic mass] 31.3 pg Normal 27-34 [facility] Comment on above: Performed By: #### A BG #### [facility] ([facility]) [address] [place] [address] 66538 VIR MCHC (RBC) [Mass/Vol] 34.1 g/dL Normal 32-36 [facility] Comment on above: Performed By: #### A BG #### [facility] ([facility]) [address] [place] [address] 15181 VIR MCV (RBC) [Entitic vol] 92 fL Normal 80-100 [facility] Comment on above: Performed By: #### A BG #### [facility] ([facility]) [address] [place] [address] 74014 VIR MONOCYTES ABSOLUTE COUNT (10*3/UL) BY AUTOMATED COUNT 0.6 10*3/uL Normal 0.0-0.9 [facility] Comment on above: Performed By: #### A BG #### [facility] ([facility]) [address] [place] [address] 57527 VIR MONOCYTES RELATIVE PERCENT BY AUTOMATED COUNT 5.3 % Normal [facility] Comment on above: Performed By: #### A BG #### [facility]) [address] [place], [place] [id number] VIR NEUTROPHILS ABSOLUTE COUNT BY AUTOMATED COUNT 9.3 10*3/uL High 1.5-6.6 [facility] Comment on above: Performed By: #### A BG #### [facility] ([facility]) [address] [place] [address] 87994 VIR NEUTROPHILS RELATIVE PERCENT BY AUTOMATED COUNT 80.4 % Normal [facility] Comment on above: Performed By: #### A BG #### [facility] ([facility]) [address] [place] [address] 18795 VIR Platelet mean volume (Bld) [Entitic vol] 7.0 fL Normal 7-12 [facility] Comment on above: Performed By: #### A BG #### [facility] ([facility]) [address] [place] [address] 50672 VIR Platelets (Bld) [#/Vol] 175 10*3/uL Normal 150-450 [facility] Comment on above: Performed By: #### A BG #### [facility] ([facility]) [address] [place] [address] 53101 VIR RBC COUNT 4.82 X10E12/L Normal 4.1-5.7 [facility] Comment on above: Performed By: #### A BG #### [facility] ([facility]) [address] [place] [address] 63451 VIR WBC (Bld) [#/Vol] 11.6 10*3/uL High 4-11 [facility] Comment on above: Performed By: #### A BG #### [facility] ([facility]) [address] [place] [address] 75780 VIR COMPREHENSIVE METABOLIC PANE Dhiraj 12-29-2024 Albumin [Mass/Vol] 3.3 g/dL Normal 3.2-5.3 [facility] Comment on above: Performed By: #### A BG #### [facility] ([facility]) [address] [place] [address] 59131 VIR ALP [Catalytic activity/Vol] 53 U/L Normal 39-130 [facility] Comment on above: Performed By: #### A BG #### [facility] ([facility]) [address] [place] [address] 89493 VIR ALT [Catalytic activity/Vol] 45 U/L High <=40 [facility] Comment on above: Performed By: #### A BG #### [facility] ([facility]) [address] [place] [address] 23304 VIR Anion gap [Moles/Vol] 6 mmol/L Normal 5-15 [facility] Comment on above: Performed By: #### A BG #### [facility] ([facility]) [address] [place] [address] 50576 VIR AST [Catalytic activity/Vol] 37 U/L Normal <=41 [facility] Comment on above: Performed By: #### A BG #### [facility] ([facility]) [address] [place] [address] 13814 VIR Bilirubin [Mass/Vol] 0.5 mg/dL Normal 0.3-1.2 [facility] Comment on above: Performed By: #### A BG #### [facility] ([facility]) [address] [place] [address] 75943 VIR Calcium [Mass/Vol] 8.1 mg/dL Low 8.5-10.5 [facility] Comment on above: Performed By: #### A BG #### [facility] ([facility]) [address] [place] [address] 54298 VIR Chloride [Moles/Vol] 105 mmol/L Normal 98-109 [facility] Comment on above: Performed By: #### A BG #### [facility] ([facility]) [address] [place] [address] 75419 VIR CO2 [Moles/Vol] 28 mmol/L Normal 22-32 [facility] Comment on above: Performed By: #### A BG #### [facility] ([facility]) [address] [place] [address] 92169 VIR Creatinine [Mass/Vol] 1.01 mg/dL Normal 0.70-1.20 [facility] Comment on above: Result Comment: METH OD TRACEABLE TO IDMS STANDARD Performed By: #### A BG #### [facility] ([address] [address] VIR GFR/1.73 sq M.predicted among non-blacks MDRD (S/P/Bld) [Vol rate/Area] 86 mL/min/{1.73_m2} Normal >=60 [facility] Comment on above: Result Comment: eGFR not reported due to non-numeric value for Creatinine. Reported eGFR is based on the CKD-EPI 2021 equation that does not use a race coefficient. Performed By: #### A BG #### [facility] ([facility]) [address] [place] [address] 08671 VIR Glucose [Mass/Vol] 167 mg/dL High 65-99 [facility] Comment on above: Performed By: #### A BG #### [facility] ([facility]) [address] [place] [address] 71092 VIR Potassium [Moles/Vol] 3.9 mmol/L Normal 3.5-5.0 [facility] Comment on above: Performed By: #### A BG #### [facility]) [address] [place] [address] 94604 VIR Protein [Mass/Vol] 6.2 g/dL Normal 6.0-8.0 [facility] Comment on above: Performed By: #### A BG #### [facility] ([facility]) [address] [place] [address] 08258 VIR Sodium [Moles/Vol] 139 mmol/L Normal 134-146 [facility] Comment on above: Performed By: #### A BG #### [facility] ([facility]) [address] [place] [address] 96355 VIR Urea nitrogen [Mass/Vol] 28 mg/dL High 5-23 [facility] Comment on above: Performed By: #### A BG #### [facility] ([facility]) [address] [place] [address] 41404 VIR MAGNESIUMon 12-29-2024 Magnesium [Mass/Vol] 2.0 mg/dL Normal 1.8-2.6 [facility] Comment on above: Performed By: #### A BG #### [facility] ([facility]) [address] [place] [address] 10947 VIR BLOOD GAS, VENOUSon 12-29-19 25 BASE,EXCESS 5.0 mmol/L High 0.0-2.0 [facility] Comment on above: Performed By: #### A BG #### [facility] ([facility]) [address] [place] [address] 44852 VIR HCO3 (Bld) [Moles/Vol] 34.3 mmol/L High 20.0-24.0 [facility] Comment on above: Performed By: #### A BG #### [facility] ([facility]) [address] [place] [address] 25665 VIR INSP. O2 CONC. 8 % Normal [facility] Comment on above: Performed By: #### A BG #### [facility] ([facility]) [address] [place] [address] 53537 VIR Oxygen saturation in Blood 97.0 % Normal [facility] Comment on above: Performed By: #### A BG #### [facility] ([facility]) [address] [place], [place] [address] VIR PCO2 VENOUS 66.4 mmHg High 35.0-50.0 [facility] Comment on above: Performed By: #### A BG #### [facility] ([facility]) [address] [place], [place] [address] VIR PH VENOUS 7.321 Normal 7.320-7.420 [facility] Comment on above: Performed By: #### A BG #### [facility] ([facility]) [address] [place] [address] VIR PO2 VENOUS 103 mmHg High 30-50 [facility] Comment on above: Performed By: #### A BG #### [facility] ([facility]) [address] [place] [address] VIR POC ANASTASIYA'S TEST N/A Normal [facility] Comment on above: Performed By: #### A BG #### [facility] ([facility]) [address] [place] [address] VIR SAMPLE SITE N/A Normal [facility] Comment on above: Performed By: #### A BG #### [facility] ([facility]) [address] [place] [address] VIR SAMPLE TYPE VENOUS Normal [facility] Comment on above: Performed By: #### A BG #### [facility] ([facility]) [address] [place] [address] VIR SOURCE OF OXYGEN NC Normal [facility] Comment on above: Performed By: #### A BG #### [facility] ([facility]) [address] [place] [address] VIR BLOOD GAS, VENOUS VBG BLOOD GAS, VENOU S Cancelled Normal [facility] CBC WITH AUTO DIFFERENTIALon 12-28-2024 BASOPHILS ABSOLUTE COUNT (10*3/UL) BY AUTOMATED COUNT 0.0 10*3/uL Normal 0.0-0.2 [facility] Comment on above: Performed By: #### A BG #### [facility] ([facility]) [address] [place] [address] 88281 VIR BASOPHILS RELATIVE PERCENT BY AUTOMATED COUNT 0.3 % Normal [facility] Comment on above: Performed By: #### A BG #### [facility] ([facility]) [address] [place] [address] 12201 VIR CELLAVISION DIFFERENTIAL TYPE AUTOMATED DIFFERENTIAL Normal [facility] Comment on above: Performed By: #### A BG #### [facility] ([facility]) [address] [place] [address] 11349 VIR Eosinophils (Bld) [#/Vol] 0.0 10*3/uL Normal 0.0-0.4 [facility] Comment on above: Performed By: #### A BG #### [facility] ([facility]) [address] [place] [address] 13106 VIR EOSINOPHILS RELATIVE PERCENT BY AUTOMATED COUNT 0.0 % Normal [facility] Comment on above: Performed By: #### A BG #### [facility] ([facility]) [address] [place] [address] 42705 VIR Erythrocyte distribution width (RBC) [Ratio] 14.7 % Normal 11.5-15 [facility] Comment on above: Performed By: #### A BG #### [facility] ([facility]) [address] [place] [address] 06089 VIR Hematocrit (Bld) [Volume fraction] 47.0 % Normal 39-50 [facility] Comment on above: Performed By: #### A BG #### [facility] ([facility]) [address] [place] [address] 54187 VIR Hemoglobin (Bld) [Mass/Vol] 16.1 g/dL Normal 13-17 [facility] Comment on above: Performed By: #### A BG #### [facility] ([facility]) [address] [place] [address] 46238 VIR LYMPHOCYTES ABSOLUTE COUNT (10*3/UL) BY AUTOMATED COUNT 1.7 10*3/uL Normal 1.0-3.5 [facility] Comment on above: Performed By: #### A BG #### [facility] ([facility]) [address] [place] [address] 22119 VIR LYMPHOCYTES RELATIVE PERCENT BY AUTOMATED COUNT 12.5 % Normal [facility] Comment on above: Performed By: #### A BG #### [facility] ([facility]) [address] [place] [address] 34527 VIR MCH (RBC) [Entitic mass] 31.2 pg Normal 27-34 [facility] Comment on above: Performed By: #### A BG #### [facility] ([facility]) [address] [place] [address] 59741 VIR MCHC (RBC) [Mass/Vol] 34.2 g/dL Normal 32-36 [facility] Comment on above: Performed By: #### A BG #### [address] [address] VIR MCV (RBC) [Entitic vol] 91 fL Normal 80-100 [facility] Comment on above: Performed By: #### A BG #### [facility] ([facility]) [address] [place] [address] 40312 VIR MONOCYTES ABSOLUTE COUNT (10*3/UL) BY AUTOMATED COUNT 1.0 10*3/uL High 0.0-0.9 [facility] Comment on above: Performed By: #### A BG #### [facility] ([facility]) [address] [place] [address] 40438 VIR MONOCYTES RELATIVE PERCENT BY AUTOMATED COUNT 7.2 % Normal [facility] Comment on above: Performed By: #### A BG #### [facility]) [address] [place] [address] 09817 VIR NEUTROPHILS ABSOLUTE COUNT BY AUTOMATED COUNT 10.7 10*3/uL High 1.5-6.6 [facility] Comment on above: Performed By: #### A BG #### [facility] ([facility]) [address] [place] [address] 43490 VIR NEUTROPHILS RELATIVE PERCENT BY AUTOMATED COUNT 80.0 % Normal [facility] Comment on above: Performed By: #### A BG #### [facility] ([facility]) [address] [place] [address] 96689 VIR Platelet mean volume (Bld) [Entitic vol] 6.6 fL Low 7-12 [facility] Comment on above: Performed By: #### A BG #### [facility] ([facility]) [address] [place] [address] 67955 VIR Platelets (Bld) [#/Vol] 183 10*3/uL Normal 150-450 [facility] Comment on above: Performed By: #### A BG #### [facility] ([facility]) [address] [place] [address] 80496 VIR RBC COUNT 5.14 X10E12/L Normal 4.1-5.7 [facility] Comment on above: Performed By: #### A BG #### [facility] ([facility]) [address] [place] [address] 17737 VIR WBC (Bld) [#/Vol] 13.3 10*3/uL High 4-11 [facility] Comment on above: Performed By: #### A BG #### [facility] ([facility]) [address] [place] [address] 10538 VIR COMPREHENSIVE METABOLIC PANE Dhiraj 12-28-2024 Albumin [Mass/Vol] 3.6 g/dL Normal 3.2-5.3 [facility] Comment on above: Performed By: #### A BG #### [facility] ([facility]) [address] [place] [address] 93670 VIR ALP [Catalytic activity/Vol] 58 U/L Normal 39-130 [facility] Comment on above: Performed By: #### A BG #### [facility] ([facility]) [address] [place] [address] 57230 VIR ALT [Catalytic activity/Vol] 40 U/L Normal <=40 [facility] Comment on above: Performed By: #### A BG #### [facility] ([facility]) [address] [place] [address] 47889 VIR Anion gap [Moles/Vol] 9 mmol/L Normal 5-15 [facility] Comment on above: Performed By: #### A BG #### [facility] ([facility]) [address] [place] [address] 79015 VIR AST [Catalytic activity/Vol] 37 U/L Normal <=41 [facility] Comment on above: Performed By: #### A BG #### [facility] ([facility]) [address] [place] [address] 41640 VIR Bilirubin [Mass/Vol] 0.6 mg/dL Normal 0.3-1.2 [facility] Comment on above: Performed By: #### A BG #### [facility]) [address] [place] [address] 00947 VIR Calcium [Mass/Vol] 8.5 mg/dL Normal 8.5-10.5 [facility] Comment on above: Performed By: #### A BG #### [facility] ([facility]) [address] [place] [address] 43370 VIR Chloride [Moles/Vol] 101 mmol/L Normal 98-109 [facility] Comment on above: Performed By: #### A BG #### [facility]) [address] [place] [address] 95337 VIR CO2 [Moles/Vol] 29 mmol/L Normal 22-32 [facility] Comment on above: Performed By: #### A BG #### [facility] ([facility]) [address] [place] [address] 66656 VIR Creatinine [Mass/Vol] 1.09 mg/dL Normal 0.70-1.20 [facility] Comment on above: Result Comment: METH OD TRACEABLE TO IDMS STANDARD Performed By: #### A BG #### [facility]) [address] [place] [address] 05957 VIR GFR/1.73 sq M.predicted among non-blacks MDRD (S/P/Bld) [Vol rate/Area] 79 mL/min/{1.73_m2} Normal >=60 [facility] Comment on above: Result Comment: eGFR not reported due to non-numeric value for Creatinine. Reported eGFR is based on the CKD-EPI 2020 equation that does not use a race coefficient. Performed By: #### A BG #### [facility]) [address] [place] [address] 12381 VIR Glucose [Mass/Vol] 129 mg/dL High 65-99 [facility] Comment on above: Performed By: #### A BG #### [address] [address] VIR Potassium [Moles/Vol] 4.6 mmol/L Normal 3.5-5.0 [facility] Comment on above: Performed By: #### A BG #### [address] [address] VIR Protein [Mass/Vol] 6.9 g/dL Normal 6.0-8.0 [facility] Comment on above: Performed By: #### A BG #### [address] [address] VIR Sodium [Moles/Vol] 139 mmol/L Normal 134-146 [facility] Comment on above: Performed By: #### A BG #### [address] [address] VIR Urea nitrogen [Mass/Vol] 25 mg/dL High 5-23 [facility] Comment on above: Performed By: #### A BG #### [address] [address] VIR HEPATITIS PANEL, ACUTEon ANTI HCV W/PCR REFLX Non-Reactive Normal Non-Reactiv e [facility] Comment on above: Result Comment: If r ecent infection suspected, recommend repeat testing (>2 months). Slcume-mb-gzholt ratio is <1.0. Performed By: #### A BG #### [facility] ([facility]) [address] [place] [address] 38304 VIR HEPATITIS A IGM Non-Reactive Normal Non-Reactiv e [facility] Comment on above: Performed By: #### A BG #### [facility] ([facility]) [address] [place] [address] 01806 VIR HEPATITIS B CORE IGM Non-Reactive Normal Non-Reactiv e [facility] Comment on above: Performed By: #### A BG #### [facility] ([facility]) [address] [place] [address] 48739 VIR HEPATITIS B SURF AG Non-Reactive Normal Non-Reactiv e [facility] Comment on above: Performed By: #### A BG #### [facility] ([facility]) [address] [place] [address] 19917 VIR MAGNESIUMon 12-28-2024 Magnesium [Mass/Vol] 2.1 mg/dL Normal 1.8-2.6 [facility] Comment on above: Performed By: #### A BG #### [facility] ([facility]) [address] [place] [address] 82417 VIR BLOOD GAS, ARTERIALon 2024 BASE,DEFICIT -1.0 mmol/L Low 0.0-2.0 [facility] Comment on above: Performed By: #### A BG #### [facility] ([facility]) [address] [place] [address] 54592 VIR HCO3 (Bld) [Moles/Vol] 26.7 mmol/L High 22.0-26.0 [facility] Comment on above: Performed By: #### A BG #### [facility] ([facility]) [address] [place] [address] [id number] VIR INSP. O2 CONC. 52 % Normal [facility] Comment on above: Performed By: #### A BG #### [facility] ([facility]) [address] [place] [address] [id number] VIR Oxygen saturation in Blood 97.0 % Normal >90.0 [facility] [facility] Comment on above: Performed By: #### A BG #### [facility]) [address] [place] [address] VIR PCO2 ARTERIAL 54.1 mmHg High 35.0-45.0 [facility] Comment on above: Performed By: #### A BG #### [facility]) [address] [place] [address] VIR PH ARTERIAL 7.301 Low 7.350-7.450 [facility] Comment on above: Performed By: #### A BG #### [facility]) [address] [place] [address] VIR PO2 ARTERIAL 108 mmHg High 80-100 [facility] Comment on above: Performed By: #### A BG #### [place] [address] VIR POC ANASTASIYA'S TEST Pass Normal [facility] Comment on above: Performed By: #### A BG #### [facility]) [address] [place] [address] VIR SAMPLE SITE L Rad Normal [facility] Comment on above: Performed By: #### A BG #### [facility]) [address] [place] [address] VIR SAMPLE TYPE ARTERIAL Normal [facility] Comment on above: Performed By: #### A BG #### [facility]) [address] [place] [address] VIR SOURCE OF OXYGEN NC Normal [facility] Comment on above: Performed By: #### A BG #### [facility]) [address] [place] [address] VIR BLOOD GAS, VENOUSon 12-28-19 25 BASE,EXCESS 0.0 mmol/L Normal 0.0-2.0 [facility] Comment on above: Performed By: #### V BG #### [facility]) [address] [place] [address] VIR HCO3 (Bld) [Moles/Vol] 27.5 mmol/L High 20.0-24.0 [facility] Comment on above: Performed By: #### V BG #### [facility]) [address] [place] [address] VIR INSP. O2 CONC. 40 % Normal [facility] Comment on above: Performed By: #### V BG #### [facility]) [address] [place] [address] VIR Oxygen saturation in Blood 79.0 % Normal [facility] Comment on above: Performed By: #### V BG #### [place] [address] VIR PCO2 VENOUS 52.4 mmHg High 35.0-50.0 [facility] Comment on above: Performed By: #### V BG #### [facility]) [address] [place] [address] VIR PH VENOUS 7.329 Normal 7.320-7.420 [facility] Comment on above: Performed By: #### V BG #### [facility] ([place] [address] VIR PO2 VENOUS 47 mmHg Normal 30-50 [facility] Comment on above: Performed By: #### V BG #### [facility] ([place] [address] VIR POC ANASTASIYA'S TEST N/A Normal [facility] Comment on above: Performed By: #### V BG #### [facility] ([place] [address] VIR SAMPLE SITE N/A Normal [facility] Comment on above: Performed By: #### V BG #### [place] [address] VIR SAMPLE TYPE VENOUS Normal [facility] Comment on above: Performed By: #### V BG #### [facility]) [address] [place] [address] VIR SOURCE OF OXYGEN NC Normal [facility] Comment on above: Performed By: #### V BG #### [facility]) [address] [place] [address] VIR BLOOD GAS, VENOUS VBG BLOOD GAS, VENOU S Cancelled Normal [facility] CBC WITH AUTO DIFFERENTIALon 12-27-2024 BASOPHILS ABSOLUTE COUNT (10*3/UL) BY AUTOMATED COUNT 0.0 10*3/uL Normal 0.0-0.2 [facility] Comment on above: Performed By: #### C BCA #### [facility]) [address] [place], [place] [id number] VIR BASOPHILS RELATIVE PERCENT BY AUTOMATED COUNT 0.4 % Normal [facility] Comment on above: Performed By: #### C BCA #### [facility]) [address] [place], [place] [id number] VIR CELLAVISION DIFFERENTIAL TYPE AUTOMATED DIFFERENTIAL Normal [facility] Comment on above: Performed By: #### C BCA #### [facility]) [address] [place] [address] VIR Eosinophils (Bld) [#/Vol] 0.0 10*3/uL Normal 0.0-0.4 [facility] Comment on above: Performed By: #### C BCA #### [facility]) [address] [place] [address] VIR EOSINOPHILS RELATIVE PERCENT BY AUTOMATED COUNT 0.2 % Normal [facility] Comment on above: Performed By: #### C BCA #### [facility]) [address] [place], [place] [id number] VIR Erythrocyte distribution width (RBC) [Ratio] 14.6 % Normal 11.5-15 [facility] Comment on above: Performed By: #### C BCA #### [facility]) [address] [place] [address] VIR Hematocrit (Bld) [Volume fraction] 48.9 % Normal 39-50 [facility] Comment on above: Performed By: #### C BCA #### [facility]) [address] [place] [address] VIR Hemoglobin (Bld) [Mass/Vol] 16.6 g/dL Normal 13-17 [facility] Comment on above: Performed By: #### C BCA #### [facility]) [address] [place] [address] VIR LYMPHOCYTES ABSOLUTE COUNT (10*3/UL) BY AUTOMATED COUNT 1.4 10*3/uL Normal 1.0-3.5 [facility] Comment on above: Performed By: #### C BCA #### [address] [address] VIR LYMPHOCYTES RELATIVE PERCENT BY AUTOMATED COUNT 11.2 % Normal [facility] Comment on above: Performed By: #### C BCA #### [facility]) [address] [place] [address] VIR MCH (RBC) [Entitic mass] 31.4 pg Normal 27-34 [facility] Comment on above: Performed By: #### C BCA #### [facility]) [address] [place] [address] VIR MCHC (RBC) [Mass/Vol] 34.0 g/dL Normal 32-36 [facility] Comment on above: Performed By: #### C BCA #### [facility]) [address] [place] [address] VIR MCV (RBC) [Entitic vol] 92 fL Normal 80-100 [facility] Comment on above: Performed By: #### C BCA #### [facility]) [address] [place] [address] VIR MONOCYTES ABSOLUTE COUNT (10*3/UL) BY AUTOMATED COUNT 1.1 10*3/uL High 0.0-0.9 [facility] Comment on above: Performed By: #### C BCA #### [facility]) [address] [place] [address] VIR MONOCYTES RELATIVE PERCENT BY AUTOMATED COUNT 8.9 % Normal [facility] Comment on above: Performed By: #### C BCA #### [facility]) [address] [place] [address] VIR NEUTROPHILS ABSOLUTE COUNT BY AUTOMATED COUNT 9.7 10*3/uL High 1.5-6.6 [facility] Comment on above: Performed By: #### C BCA #### [facility]) [address] [place] [address] VIR NEUTROPHILS RELATIVE PERCENT BY AUTOMATED COUNT 79.3 % Normal [facility] Comment on above: Performed By: #### C BCA #### [facility]) [address] [place] [address] VIR Platelet mean volume (Bld) [Entitic vol] 8.4 fL Normal 7-12 [facility] Comment on above: Performed By: #### C BCA #### [facility]) [address] [place] [address] VIR Platelets (Bld) [#/Vol] 211 10*3/uL Normal 150-450 [facility] Comment on above: Performed By: #### C BCA #### [facility]) [address] [place] [address] VIR RBC COUNT 5.30 X10E12/L Normal 4.1-5.7 [facility] Comment on above: Performed By: #### C BCA #### [facility]) [address] [place] [address] VIR WBC (Bld) [#/Vol] 12.3 10*3/uL High 4-11 [facility] Comment on above: Performed By: #### C BCA #### [facility]) [address] [place] [address] VIR COMPREHENSIVE METABOLIC PANE Dhiraj 12-27-2024 Albumin [Mass/Vol] 3.9 g/dL Normal 3.2-5.3 [facility] Comment on above: Performed By: #### C MP #### [facility]) [address] [place] [address] VIR ALP [Catalytic activity/Vol] 64 U/L Normal 39-130 [facility] Comment on above: Performed By: #### C MP #### [facility]) [address] [place], [place] [address] VIR ALT [Catalytic activity/Vol] 44 U/L High <=40 [facility] Comment on above: Performed By: #### C MP #### [address] [address] VIR Anion gap [Moles/Vol] 12 mmol/L Normal 5-15 [facility] Comment on above: Performed By: #### C MP #### [facility] ([place] [phone] VIR AST [Catalytic activity/Vol] 44 U/L High <=41 [facility] Comment on above: Performed By: #### C MP #### [place] [id number] VIR Bilirubin [Mass/Vol] 0.8 mg/dL Normal 0.3-1.2 [facility] Comment on above: Performed By: #### C MP #### [facility] ([place] [phone] VIR Calcium [Mass/Vol] 8.6 mg/dL Normal 8.5-10.5 [facility] Comment on above: Performed By: #### C MP #### [facility]) [address] [place] [address] VIR Chloride [Moles/Vol] 96 mmol/L Low 98-109 [facility] Comment on above: Performed By: #### C MP #### [facility]) [address] [place] [address]293 VIR CO2 [Moles/Vol] 27 mmol/L Normal 22-32 [facility] Comment on above: Performed By: #### C MP #### [facility]) [address] [place] [address] VIR Creatinine [Mass/Vol] 1.27 mg/dL High 0.70-1.20 [facility] Comment on above: Result Comment: METH OD TRACEABLE TO IDMS STANDARD Performed By: #### C MP #### [facility]) [address] [place] [address] VIR GFR/1.73 sq M.predicted among non-blacks MDRD (S/P/Bld) [Vol rate/Area] 65 mL/min/{1.73_m2} Normal >=60 [facility] Comment on above: Result Comment: eGFR not reported due to non-numeric value for Creatinine. Reported eGFR is based on the CKD-EPI 2020 equation that does not use a race coefficient. Performed By: #### C MP #### [facility]) [address] [place] [address] VIR Glucose [Mass/Vol] 159 mg/dL High 65-99 [facility] Comment on above: Performed By: #### C MP #### [facility]) [address] [place] [address]999 VIR Potassium [Moles/Vol] 4.9 mmol/L Normal 3.5-5.0 [facility] Comment on above: Performed By: #### C MP #### [facility]) [address] [place] [address] VIR Protein [Mass/Vol] 7.5 g/dL Normal 6.0-8.0 [facility] Comment on above: Performed By: #### C MP #### [facility]) [address] [place] [address] VIR Sodium [Moles/Vol] 135 mmol/L Normal 134-146 [facility] Comment on above: Performed By: #### C MP #### [facility]) [address] [place] [address] VIR Urea nitrogen [Mass/Vol] 23 mg/dL Normal 5-23 [facility] Comment on above: Performed By: #### C MP #### [facility]) [address] [place] [address] VIR GI PANEL STOOL PATHOGEN PANE Dhiraj 12-27-2024 ADENOVIRUS Not detected Normal Not Detected [facility] Comment on above: Performed By: #### A BG #### [address] [address] VIR AGGREGATIVE E COLI Not detected Normal Not Detected [facility] Comment on above: Performed By: #### A BG #### [address] [address] VIR ASTROVIRUS Not detected Normal Not Detected [facility] Comment on above: Performed By: #### A BG #### [address] [place] [address] VIR CAMPYLOBACTER Not detected Normal Not Detected [facility] Comment on above: Performed By: #### A BG #### [address] [place] [address] VIR CRYPTOSPORIDIUM Not detected Normal Not Detected [facility] Comment on above: Performed By: #### A BG #### [address] [place] [address] VIR CYCLOSPORA Not detected Normal Not Detected [facility] Comment on above: Performed By: #### A BG #### [address] [place] [address] VIR E HISTOLYTICA Not detected Normal Not Detected [facility] Comment on above: Performed By: #### A BG #### [address] [place] [address] VIR GIARDIA LAMBLIA Not detected Normal Not Detected [facility] Comment on above: Performed By: #### A BG #### [facility]) [address] [place] [address], [place] [address] VIR NOROVIRUS Not detected Normal Not Detected [facility] Comment on above: Performed By: #### A BG #### [facility]) [address] [place] [address], [place] [address] VIR PATHOGENIC E COLI Detected Abnormal Not Detected [facility] Comment on above: Result Comment: Ente ropathogenic Escherichia coli Performed By: #### A BG #### [facility]) [address] [place] [address], [place] [address] VIR PLESIOMONAS Not detected Normal Not Detected [facility] Comment on above: Performed By: #### A BG #### [address] [place] [address] VIR ROTAVIRUS A Not detected Normal Not Detected [facility] Comment on above: Performed By: #### A BG #### [facility]) [address] [place] [address], [place] [address] VIR SALMONELLA Not detected Normal Not Detected [facility] Comment on above: Performed By: #### A BG #### [facility]) [address] [place] [address], [place] [address] VIR SAPOVIRUS Not detected Normal Not Detected [facility] Comment on above: Performed By: #### A BG #### [facility]) [address] [place] [address], [place] [address] VIR SHIGA TOXIN E COLI Not detected Normal Not Detected [facility] Comment on above: Performed By: #### A BG #### [facility]) [address] [place] [address], [place] [address] VIR SHIGELLA-E COLI Not detected Normal Not Detected [facility] Comment on above: Performed By: #### A BG #### [facility]) [address] [place] [address], [place] [address] VIR TOXIGENIC E COLI Not detected Normal Not Detected [facility] Comment on above: Performed By: #### A BG #### [facility]) [address] [place] [address] VIR VIBRIO Not detected Normal Not Detected [facility] Comment on above: Performed By: #### A BG #### [facility]) [address] [place] [address] VIR VIBRIO CHOLERAE Not detected Normal Not Detected [facility] Comment on above: Performed By: #### A BG #### [facility]) [address] [place] [address] VIR Y. ENTEROCOLITICA Not detected Normal Not Detected [facility] Comment on above: Performed By: #### A BG #### [facility] ([address] [address] VIR MAGNESIUMon 12-27-2024 Magnesium [Mass/Vol] 2.1 mg/dL Normal 1.8-2.6 [facility] Comment on above: Performed By: #### M G #### [facility]) [address] [place] [address] VIR TROP I, HIGH SENSITIVITY 1 H OURon 12-27-2024 TROPONIN I, HIGH SENSITIVITY 13 ng/L Normal <21 [facility] Comment on above: Performed By: #### T [email or web address] #### [facility]) [address] [place] [address] VIR TROPONIN I, HIGH SENSITIVITY 0 HOURon 12-27-2024 TROPONIN I, HIGH SENSITIVITY 12 ng/L Normal <21 [facility] Comment on above: Performed By: #### T NIHS0 #### [facility]) [address] [place] [address] VIR APTTon 12-26-2024 aPTT Coag (Bld) [Time] 31 s Normal 26-37 [facility] Comment on above: Performed By: #### P TT #### [facility] ([address] [place] [address] VIR B-TYPE NATRIURETIC PEPTIDEon 12-26-2024 Natriuretic peptide B (Bld) [Mass/Vol] 27 pg/mL Normal <=100 [facility] Comment on above: Performed By: #### B MATERIAL DAMAGE ADJUSTER #### [facility] ([address] [place] [address] VIR BLOOD CULTUREon 12-26-2024 Bacteria identified Cx Nom (Bld) CULTURE RESULTS NO GROWTH 5 DAYS Normal [facility] Comment on above: Order Comment: *SIRS Criteria: (must display 2 without other explanation)-Temperature < 36 or >38-Pulse >90-Resp rate >20-WBC less than 4K or greater than 12KRepeat blood cultures not needed:-To document that a blood culture is a contaminant when 1 of 2 bottles is positive for a common contaminant (already listed in [facility] with the culture result)-To document clearance of gram negative bacteremia in patients with suspected urinary source who are improvingSuboptimal volume of blood collected, Results may be affected. Performed By: #### C BCA #### [facility] ([address] [place] [address] VIR Bacteria identified Cx Nom (Bld) CULTURE RESULTS NO GROWTH 5 DAYS Normal [facility] Comment on above: Order Comment: *SIRS Criteria: [...] improving Performed By: #### C BCA #### [facility] ([facility]) [address] [place] [address] VIR BLOOD GAS, ARTERIALon 2024 BASE,DEFICIT -1.0 mmol/L Low 0.0-2.0 [facility] Comment on above: Performed By: #### A BG #### [facility] ([facility]) [address] [place] [address] VIR HCO3 (Bld) [Moles/Vol] 23.8 mmol/L Normal 22.0-26.0 [facility] Comment on above: Performed By: #### A BG #### [facility]) [address] [place] [address] VIR INSP. O2 CONC. 36 % Normal [facility] Comment on above: Performed By: #### A BG #### [facility]) [address] [place] [address] VIR Oxygen saturation in Blood 92.0 % Normal >90.0 [facility] Comment on above: Performed By: #### A BG #### [facility]) [address] [place] [address] VIR PCO2 ARTERIAL 40.4 mmHg Normal 35.0-45.0 [facility] Comment on above: Performed By: #### A BG #### [facility]) [address] [place] [address] VIR PH ARTERIAL 7.378 Normal 7.350-7.450 [facility] Comment on above: Performed By: #### A BG #### [facility]) [address] [place] [address] VIR PO2 ARTERIAL 64 mmHg Low 80-100 [facility] Comment on above: Performed By: #### A BG #### [facility]) [address] [place] [address]478 VIR POC ANASTASIYA'S TEST Pass Normal [facility] Comment on above: Performed By: #### A BG #### [facility]) [address] [place] [address] VIR SAMPLE SITE R Rad Normal [facility] Comment on above: Performed By: #### A BG #### [facility]) [address] [place] [address] VIR SAMPLE TYPE ARTERIAL Normal [facility] Comment on above: Performed By: #### A BG #### [facility]) [address] [place] [address] VIR SOURCE OF OXYGEN NC Normal [facility] Comment on above: Performed By: #### A BG #### [facility]) [address] [place] [address] VIR CBC WITH AUTO DIFFERENTIALon 12-26-2024 BASOPHILS ABSOLUTE COUNT (10*3/UL) BY AUTOMATED COUNT 0.0 10*3/uL Normal 0.0-0.2 [facility] Comment on above: Performed By: #### C BCA #### [address] [address] VIR BASOPHILS RELATIVE PERCENT BY AUTOMATED COUNT 0.4 % Normal [facility] Comment on above: Performed By: #### C BCA #### [facility] ([address] [address] VIR CELLAVISION DIFFERENTIAL TYPE AUTOMATED DIFFERENTIAL Normal [facility] Comment on above: Performed By: #### C BCA #### [facility] ([address] [address] VIR Eosinophils (Bld) [#/Vol] 0.1 10*3/uL Normal 0.0-0.4 [facility] Comment on above: Performed By: #### C BCA #### [facility] ([address] [address] VIR EOSINOPHILS RELATIVE PERCENT BY AUTOMATED COUNT 1.8 % Normal [facility] Comment on above: Performed By: #### C BCA #### [facility] ([address] [address] VIR Erythrocyte distribution width (RBC) [Ratio] 14.6 % Normal 11.5-15 [facility] Comment on above: Performed By: #### C BCA #### [facility] ([address] [place] [address] VIR Hematocrit (Bld) [Volume fraction] 48.9 % Normal 39-50 [facility] Comment on above: Performed By: #### C BCA #### [facility] ([address] [place] [address] VIR Hemoglobin (Bld) [Mass/Vol] 16.6 g/dL Normal 13-17 [facility] Comment on above: Performed By: #### C BCA #### [facility] ([address] [place] [address] VIR LYMPHOCYTES ABSOLUTE COUNT (10*3/UL) BY AUTOMATED COUNT 0.9 10*3/uL Low 1.0-3.5 [facility] Comment on above: Performed By: #### C BCA #### [facility] ([address] [address] VIR LYMPHOCYTES RELATIVE PERCENT BY AUTOMATED COUNT 11.8 % Normal [facility] Comment on above: Performed By: #### C BCA #### [facility] ([address] [address] VIR MCH (RBC) [Entitic mass] 31.3 pg Normal 27-34 [facility] Comment on above: Performed By: #### C BCA #### [facility] ([address] [place] [address] VIR MCHC (RBC) [Mass/Vol] 34.0 g/dL Normal 32-36 [facility] Comment on above: Performed By: #### C BCA #### [facility] ([address] [address] VIR MCV (RBC) [Entitic vol] 92 fL Normal 80-100 [facility] Comment on above: Performed By: #### C BCA #### [facility] ([address] [address] VIR MONOCYTES ABSOLUTE COUNT (10*3/UL) BY AUTOMATED COUNT 0.8 10*3/uL Normal 0.0-0.9 [facility] Comment on above: Performed By: #### C BCA #### [facility] ([address] [place] [address] VIR MONOCYTES RELATIVE PERCENT BY AUTOMATED COUNT 10.1 % Normal [facility] Comment on above: Performed By: #### C BCA #### [facility] ([address] [place] [address] VIR NEUTROPHILS ABSOLUTE COUNT BY AUTOMATED COUNT 5.7 10*3/uL Normal 1.5-6.6 [facility] Comment on above: Performed By: #### C BCA #### [facility] ([address] [place] [address] VIR NEUTROPHILS RELATIVE PERCENT BY AUTOMATED COUNT 75.9 % Normal [facility] Comment on above: Performed By: #### C BCA #### [facility] ([address] [place] [address] VIR Platelet mean volume (Bld) [Entitic vol] 6.8 fL Low 7-12 [facility] Comment on above: Performed By: #### C BCA #### [facility] ([address] [address] VIR Platelets (Bld) [#/Vol] 187 10*3/uL Normal 150-450 [facility] Comment on above: Performed By: #### C BCA #### [facility] ([address] [place] [address] VIR RBC COUNT 5.31 X10E12/L Normal 4.1-5.7 [facility] Comment on above: Performed By: #### C BCA #### [facility] ([address] [place] [address] VIR WBC (Bld) [#/Vol] 7.6 10*3/uL Normal 4-11 [facility] Comment on above: Performed By: #### C BCA #### [facility] ([place] [address] [place] [address] VIR COMPREHENSIVE METABOLIC PANE Dhiraj 12-26-2024 Albumin [Mass/Vol] 3.8 g/dL Normal 3.2-5.3 [facility] Comment on above: Performed By: #### C MP #### [facility] ([place] [address] [place] [address] VIR ALP [Catalytic activity/Vol] 72 U/L Normal 39-130 [facility] Comment on above: Performed By: #### C MP #### [facility] ([address] [place] [address] VIR ALT [Catalytic activity/Vol] 43 U/L High <=40 [facility] Comment on above: Performed By: #### C MP #### [facility] ([address] [place] [address] VIR Anion gap [Moles/Vol] 9 mmol/L Normal 5-15 [facility] Comment on above: Performed By: #### C MP #### [facility] ([address] [place] [address] VIR AST [Catalytic activity/Vol] 40 U/L Normal <=41 [facility] Comment on above: Performed By: #### C MP #### [facility] ([place] [address] [place] [address] VIR Bilirubin [Mass/Vol] 0.9 mg/dL Normal 0.3-1.2 [facility] Comment on above: Performed By: #### C MP #### [facility] ([place] [address] [place] [address] VIR Calcium [Mass/Vol] 8.5 mg/dL Normal 8.5-10.5 [facility] Comment on above: Performed By: #### C MP #### [facility] ([address] [place] [address] VIR Chloride [Moles/Vol] 103 mmol/L Normal 98-109 [facility] Comment on above: Performed By: #### C MP #### [facility] ([address] [place] [address] VIR CO2 [Moles/Vol] 26 mmol/L Normal 22-32 [facility] Comment on above: Performed By: #### C MP #### [facility] ([address] [place] [address] VIR Creatinine [Mass/Vol] 1.35 mg/dL High 0.70-1.20 [facility] Comment on above: Result Comment: METH OD TRACEABLE TO IDMS STANDARD Performed By: #### C MP #### [facility] ([address] [place] [address] VIR GFR/1.73 sq M.predicted among non-blacks MDRD (S/P/Bld) [Vol rate/Area] 61 mL/min/{1.73_m2} Normal >=60 [facility] Comment on above: Result Comment: eGFR not reported due to non-numeric value for Creatinine. Reported eGFR is based on the CKD-EPI 2021 equation that does not use a race coefficient. Performed By: #### C MP #### [facility] ([address] [place] [address] VIR Glucose [Mass/Vol] 117 mg/dL High 65-99 [facility] Comment on above: Performed By: #### C MP #### [facility] ([address] [place] [address] VIR Potassium [Moles/Vol] 4.3 mmol/L Normal 3.5-5.0 [facility] Comment on above: Performed By: #### C MP #### [facility] ([facility]) [address] [place] [address] VIR Protein [Mass/Vol] 7.0 g/dL Normal 6.0-8.0 [facility] Comment on above: Performed By: #### C MP #### [facility] ([facility]) [address] [address] VIR Sodium [Moles/Vol] 138 mmol/L Normal 134-146 [facility] Comment on above: Performed By: #### C MP #### [facility] ([facility]) [address] [address] VIR Urea nitrogen [Mass/Vol] 16 mg/dL Normal 5-23 [facility] Comment on above: Performed By: #### C MP #### [facility] ([address] [place] [address]A CHESTon 12-26-2024 CT CTA [...] Soria MD on 12/26/2024 1:12 AM Normal [facility] D-DIMERon 12-26-2024 D DIMER 481 ug/mL High 1-255 [facility] Comment on above: Result Comment: Resu lts [...] level. Performed By: #### D DMR #### [facility] ([address] [place] [address] VIR GI PANEL STOOL PATHOGEN PANE Dhiraj 12-26-2024 GI PANEL STOOL PATHOGEN PANEL GIP GI PANEL STOOL PATHOGEN PANEL Cancelled Normal [facility] LACTATE W/ REFLEXon 12-27-19 25 LACTATE W/REFLEX 1.5 mmol/L Normal 0.4-2.0 [facility] Comment on above: Order Comment: Resul t did not trigger repeat Lactate, re-order if needed. Performed By: #### L ACTS #### [facility] ([address] [place] [address] VIR MAGNESIUMon 12-26-2024 Magnesium [Mass/Vol] 1.7 mg/dL Low 1.8-2.6 [facility] Comment on above: Performed By: #### M G #### [facility] ([address] [place] [address] VIR PROTIME AND INRon 12-26-2024 INR 1.0 Normal 0.9-1.2 [facility] Comment on above: Performed By: #### P INR #### [facility] ([address] [address] VIR PT Coag (PPP) [Time] 11.9 s Normal 9.8-13.2 [facility] Comment on above: Performed By: #### P INR #### [facility] ([address] [place] [address] VIR TROP I, HIGH SENSITIVITY 1 H OURon 12-26-2024 TROPONIN I, HIGH SENSITIVITY 11 ng/L Normal <21 [facility] Comment on above: Performed By: #### C BCA #### [facility] ([address] [place] [address] VIR TROPONIN I, HIGH SENSITIVITY 0 HOURon 12-26-2024 TROPONIN I, HIGH SENSITIVITY 13 ng/L Normal <21 [facility] Comment on above: Performed By: #### T NIHS0 #### [address] [place] [address] VIR XR CHEST 1 VWon 12-26-2024 XR [...] Cox MD on 12/26/2024 12:19 AM Normal [facility] RESP PATHOGENS PANEL/SARS-CO V-2on 12-25-2024 SARS-CoV-2 (COVID-19) [...] MYCOPLASMA PNEUMONIAE Not Detected Normal Not Detected [facility] Comment on above: Order Comment: The B [employer] Respiratory Panel 2.1 (RP2.1) is a multiplexed [...] other pathogens. The agent(s) detected by the travelfoxe RP2.1 may not be the definite cause [...] infection. Performed By: #### C BCA #### [facility] ([facility]) [address] [place] [address] VIR SARS/FLU A+B/RSV BY NAAT/MOL ECULAR (M4RT COLLECTION TUBE)on 12-25-2024 SARS/FLU A+B/RSV BY NAAT/MOLECULAR (M4RT COLLECTION TUBE) FLU A PCR Negative FLU B PCR Negative RSV BY PCR Negative SARS COV 2 BY PCR Not Detected Normal Not Detected [facility] Comment on above: Order Comment: The [employer] Xpress SARS-CoV-2/Flu/RSV Plus test is a rapid, multiplexed real-time RT-PCR test intended for the simultaneous qualitative detection and differentiation of SARS-CoV-2, influenza A, influenza B and respiratory syncytial virus (RSV) viral RNA from individuals suspected of respiratory viral infection consistent with COVID-19 by Their healthcare provider. This test has not been validated in asymptomatic patients. The XpNextCapital Xpress SARS-CoV-2 test is intended for use by qualified and trained operators who are performing tests using either Scrip-t or Enikos systems and is limited to laboratories that [...] resolved with specimen repeat.Fact Sheet for Healthcare Providers:https://www.fda.gov/media/054165/downloadFact Sheet for Patients:https://www.fda.gov/media/493495/download Performed By: #### C BCA #### [facility] ([facility]) [address] [place] [address]. [place] [address] [facility] Ambulatory Visit Summaryon 0 11-16-2024 Ambulatory Visit Summary Ambulatory Visit Summary RIOS BARTLETT :1965 Visit Date:11/16/2024 Ambulatory Visit Instructions Your Diagnosis Prostate cancer screening Your Care Team Attending Physician - DOMONIQUE FELIZ, MARNIE Lemon Primary Care Physician - Mary Kline MD Referring Physician - Mary Kline MD This Is Your Medications List dutasteride [...] you for choosing us for your care. Normal [facility] Urology Office/Clinic Noteon 11-16-2024 Urology Office/Clinic Note Urology Office/Clinic Note Chief Complaint Difficulty urinating HPI Staff New pt referred by Dr. Kline. Never seen in our office before (verified [...] E&M of New Patient Moderate 45-59 Min 39571 2. Urinary frequency (R35.0: Frequency of micturition) [...] E&M of New Patient Moderate 45-59 Min 77316 3. Nocturia (R35.1: Nocturia) >5x per night However has other contributing factors for nocturia - RLS, PATTI, chronic pain. Says it is not the urge to void which wakes him, it's the other things. Recommended improved control of RLS/PATTI/pain. Ordered: E&M of New Patient Moderate 45-59 Min 00441 4. Prostate cancer screening (Z12.5: Encounter for screening for malignant neoplasm of prostate) PSA 11/04/22 - 0.48 05/12/24 - 0.67 Low, stable, well within normal range for his age. Can continue monitoring w PCP. Ordered: E&M of New Patient Moderate 45-59 Min 51054 Orders: 23772 Measure Post Void residual urine and/or bladder [...] Urnls Dip Stick Auto w/o Microscopy POC 91433 Pt will work on lifestyle modifications as noted above. If sx persist despite changes, can re-evaluate. Follow-up With When Contact Information [facility] Additional Instructions: Only if needed/new problems [...] Procedure/Surgical History Exploration (08/27/2021), Uvulopalatopharyngoplasty (2019), L tim (more content not included)... Normal [facility] Comment on above: Result Comment: Elec tronically Signed By: DOMONIQUE FELIZ, MARNIE Lemon\.br\Date and Time Signed: 11/16/24 14:00 EDT CBC AUTO DIFFon 11-04-2022 BASO # 0.0 103/ul Normal 0.0-0.1 [facility] Comment on above: Performed By: #### T SH, T4, FT3, CMP, LIPID #### [facility] [address] [place] [address] Dr. Ayush Rcie Basophils/100 WBC (Bld) 0.3 % Normal 0.2-2.0 [facility] Comment on above: Performed By: #### T SH, T4, FT3, CMP, LIPID #### [facility] [address] [place] [address] Dr. Ayush Rice EO # 0.2 103/ul Normal 0.0-0.7 [facility] Comment on above: Performed By: #### T SH, T4, FT3, CMP, LIPID #### [facility] [address] [place] [address] Dr. Ayush Rice Eosinophils/100 WBC (Bld) 1.5 % Normal 0.9-7.0 [facility] Comment on above: Performed By: #### T SH, T4, FT3, CMP, LIPID #### [facility] [address] [place] [address] Dr. Ayush Rice Erythrocyte distribution width (RBC) [Ratio] 14.2 % Normal 11.0-15.0 [facility] Comment on above: Performed By: #### T SH, T4, FT3, CMP, LIPID #### [facility] [address] [place] [address] Dr. Ayush Rice Hematocrit (Bld) [Volume fraction] 49.3 % Normal 42.0-54.0 [facility] Comment on above: Performed By: #### T SH, T4, FT3, CMP, LIPID #### [facility] [address] [place] [address] Dr. Ayush Rice Hemoglobin (Bld) [Mass/Vol] 16.2 g/dL Normal 14.0-18.0 [facility] Comment on above: Performed By: #### T SH, T4, FT3, CMP, LIPID #### [facility] [address] [place] [address] Dr. Ayush Rice IG # 0.03 10e3/ul Normal 0.00-0.03 [facility] Comment on above: Performed By: #### T SH, T4, FT3, CMP, LIPID #### [facility] [address] [place] [address] Dr. Ayush Rice IG % 0.3 % Normal 0.0-0.5 [facility] Comment on above: Performed By: #### T SH, T4, FT3, CMP, LIPID #### [facility] [address] [place] [address] Dr. Ayush Rice LYMPH # 2.6 103/ul Normal 1.2-3.8 [facility] Comment on above: Performed By: #### T SH, T4, FT3, CMP, LIPID #### [facility] [address] [place] [address] Dr. Ayush Rice Lymphocytes/100 WBC (Bld) 24.9 % Normal 20.5-60.0 [facility] Comment on above: Performed By: #### T SH, T4, FT3, CMP, LIPID #### [facility] [address] [place] [address] Dr. Ayush Rice MANUAL DIFF REQ NO Normal [facility] Comment on above: Performed By: #### T SH, T4, FT3, CMP, LIPID #### [facility] [address] [place] [address] Dr. Ayush Rice MCH (RBC) [Entitic mass] 30.1 pg Normal 25.9-34.0 [facility] Comment on above: Performed By: #### T SH, T4, FT3, CMP, LIPID #### [facility] [address] [place] [address] Dr. Ayush Rice MCHC (RBC) [Mass/Vol] 32.9 g/dL Normal 29.9-35.2 [facility] Comment on above: Performed By: #### T SH, T4, FT3, CMP, LIPID #### [facility] [address] [place] [address] Dr. Ayush Rice MCV (RBC) [Entitic vol] 91.5 fL Normal 80.0-94.0 [facility] Comment on above: Performed By: #### T SH, T4, FT3, CMP, LIPID #### [facility] [address] [place] [address] Dr. Ayush Rice MONO # 0.8 103/ul Normal 0.3-0.8 [facility] Comment on above: Performed By: #### T SH, T4, FT3, CMP, LIPID #### [facility] [address] [place] [address] Dr. Ayush Rice Monocytes/100 WBC (Bld) 7.4 % Normal 1.7-12.0 [facility] Comment on above: Performed By: #### T SH, T4, FT3, CMP, LIPID #### [facility] [address] [place] [address] Dr. Ayush Rice NEUT # 7.0 103/ul Critically high 1.4-6.5 [facility] Comment on above: Performed By: #### T SH, T4, FT3, CMP, LIPID #### [facility] [address] [place] [address] Dr. Ayush Rice Neutrophils/100 WBC (Bld) 65.6 % Normal 43.0-75.0 [facility] Comment on above: Performed By: #### T SH, T4, FT3, CMP, LIPID #### [facility] [address] [place] [address] Dr. Ayush Rice Platelet mean volume (Bld) [Entitic vol] 8.5 fL Critically low 9.5-13.5 [facility] Comment on above: Performed By: #### T SH, T4, FT3, CMP, LIPID #### [facility] [address] [place] [address] [address] Ayush Rice PLT 232 103/ul Normal 150-450 [facility] Comment on above: Performed By: #### T SH, T4, FT3, CMP, LIPID #### [facility] [address] [place] [address] Dr. Ayush Rice RBC 5.39 106/ul Normal 4.70-6.10 [facility] Comment on above: Performed By: #### T SH, T4, FT3, CMP, LIPID #### [facility] [address] [place] [address] Dr. Ayush Rice WBC 10.6 103/ul Normal 4.0-11.0 [facility] Comment on above: Performed By: #### T SH, T4, FT3, CMP, LIPID #### [facility] [address] [place] [address] Dr. Ayush Rice FREE T3on 11-04-2022 FREE T3 2.93 pg/mlL Normal 2.18-3.98 [facility] Comment on above: Performed By: #### T SH, T4, FT3, CMP, LIPID #### [facility] [address] [place] [address] Dr. Ayush Rice GLYCOHEMOGLOBIN A1Con 2022 ADA RECOMMENDATION SEE BELOW Normal [facility] Comment on above: Result Comment: ADA RECOMMENDED LIMIT 4.0 - 6.0 ADA THERAPEUTIC TARGET < 7.0 ACTION SUGGESTED > 7.0 Performed By: #### A 1C #### [facility] [address] [place] [address] Dr. Ayush Rice Glucose [Mass/Vol] 126 mg/dL Normal [facility] Comment on above: Performed By: #### A 1C #### [facility] [address] [place] [address] Dr. Ayush Rice HbA1c (Bld) [Mass fraction] 6.0 % Normal 4.5-6.2 [facility] Comment on above: Performed By: #### A 1C #### [facility] [address] [place] [address] Dr. Ayush Rice LIPID PROFILEon 11-04-2022 CHOL-HDL RATIO NORM SEE BELOW Normal [facility] Comment on above: Result Comment: 3.3 - 4.4 LOW RISK 4.4 - 7.1 AVERAGE RISK 7.1 - 11.0 MODERATE RISK >11.0 HIGH RISK Performed By: #### T SH, T4, FT3, CMP, LIPID #### [facility] [address] [place] [address] Dr. Ayush Rice Cholesterol [Mass/Vol] 190 mg/dL Normal <=200 [facility] Comment on above: Performed By: #### T SH, T4, FT3, CMP, LIPID #### [facility] [address] [place] [address] Dr. Ayush Rice Cholesterol in HDL [Mass/Vol] 39 mg/dL Critically low 40-60 [facility] Comment on above: Performed By: #### T SH, T4, FT3, CMP, LIPID #### [facility] [address] [place] [address] Dr. Ayush Rice Cholesterol in LDL [Mass/Vol] 122.0 mg/dL Normal [facility] Comment on above: Performed By: #### T SH, T4, FT3, CMP, LIPID #### [facility] [address] [place] [address] Dr. Ayush Rice Cholesterol.total/ Cholesterol in HDL [Mass ratio] 4.9 {ratio} Normal [facility] Comment on above: Performed By: #### T SH, T4, FT3, CMP, LIPID #### [facility] [address] [place] [address] Dr. Ayush Rice HDL NORMAL > or = 60 mg/dl - LO W CARDIOVASCULAR RISK <40 mg/dl - HIGH CARDIOVASCULAR RISK Normal [facility] Comment on above: Performed By: #### T SH, T4, FT3, CMP, LIPID #### [facility] [address] [address] [address] Ayush Rice LDL CALC NORMAL SEE BELOW Normal [facility] Comment on above: Result Comment: <100 mg/dl OPTIMAL 100 - 129 mg/dl NEAR OR ABOVE OPTIMAL 130 - 159 mg/dl BORDERLINE HIGH 160 - 189 mg/dl HIGH >190 mg/dl VERY HIGH Performed By: #### T SH, T4, FT3, CMP, LIPID #### [facility] [address] [address] [address] Ayush Rice Triglyceride [Mass/Vol] 145 mg/dL Normal <=150 [facility] Comment on above: Performed By: #### T SH, T4, FT3, CMP, LIPID #### [facility] [address] [place] [address] Dr. Ayush Rice VLDL CALC 29.0 mg/dL Normal [facility] Comment on above: Performed By: #### T SH, T4, FT3, CMP, LIPID #### [facility] [address] [place] [address] Dr. Ayush Rice PROF 14(COMP METB)on 023 Albumin [Mass/Vol] 3.8 g/dL Normal 3.4-5.0 [facility] Comment on above: Performed By: #### T SH, T4, FT3, CMP, LIPID #### [facility] [address] [place] [address] Dr. Ayush Rice Albumin/Globulin [Mass ratio] 1.1 {ratio} Normal [facility] Comment on above: Performed By: #### T SH, T4, FT3, CMP, LIPID #### [facility] [address] [place] [address] Dr. Ayush Rice ALP [Catalytic activity/Vol] 103 U/L Normal 46-116 [facility] Comment on above: Performed By: #### T SH, T4, FT3, CMP, LIPID #### [facility] [address] [place] [address] Dr. Ayush Rice ALT [Catalytic activity/Vol] 40 U/L Normal 16-63 [facility] Comment on above: Performed By: #### T SH, T4, FT3, CMP, LIPID #### [facility] [address] [place] [address] Dr. Ayush Rice Anion gap [Moles/Vol] 12.4 mmol/L Normal [facility] Comment on above: Performed By: #### T SH, T4, FT3, CMP, LIPID #### [facility] [address] [place] [address] Dr. Ayush Rice AST [Catalytic activity/Vol] 28 U/L Normal 15-37 [facility] Comment on above: Performed By: #### T SH, T4, FT3, CMP, LIPID #### [facility] [address] [place] [address] Dr. Ayush Rice Bilirubin [Mass/Vol] 0.9 mg/dL Normal 0.2-1.0 [facility] Comment on above: Performed By: #### T SH, T4, FT3, CMP, LIPID #### [facility] [address] [place] [address] Dr. Ayush Rice Calcium [Mass/Vol] 9.1 mg/dL Normal 8.5-10.1 [facility] Comment on above: Performed By: #### T SH, T4, FT3, CMP, LIPID #### [facility] [address] [place] [address] Dr. Ayush Rice Chloride [Moles/Vol] 107 mmol/L Normal 98-107 [facility] Comment on above: Performed By: #### T SH, T4, FT3, CMP, LIPID #### [facility] [address] [place] [address] Dr. Ayush Rice CO2 [Moles/Vol] 27.9 mmol/L Normal 21.0-32.0 [facility] Comment on above: Performed By: #### T SH, T4, FT3, CMP, LIPID #### [facility] [address] [place] [address] Dr. Ayush Rice Creatinine [Mass/Vol] 1.18 mg/dL Normal 0.70-1.30 [facility] Comment on above: Performed By: #### T SH, T4, FT3, CMP, LIPID #### [facility] [address] [address] [address] Ayush Rice EGFR-AF CYMRO >60 Normal >=60 [facility] Comment on above: Performed By: #### T SH, T4, FT3, CMP, LIPID #### [facility] [address] [address] [address] Ayush Rice EGFR-NON AF CYMRO >60 Normal >=60 [facility] Comment on above: Performed By: #### T SH, T4, FT3, CMP, LIPID #### [facility] [address] [place] [address] Dr. Ayush Rice Globulin (S) [Mass/Vol] 3.4 g/dL Normal [facility] Comment on above: Performed By: #### T SH, T4, FT3, CMP, LIPID #### [facility] [address] [address] [address] Ayush Rice Glucose [Mass/Vol] 106 mg/dL Normal 74-106 [facility] Comment on above: Performed By: #### T SH, T4, FT3, CMP, LIPID #### [facility] [address] [address] [address] Ayush Rice Potassium [Moles/Vol] 4.3 mmol/L Normal 3.5-5.1 [facility] Comment on above: Performed By: #### T SH, T4, FT3, CMP, LIPID #### [facility] [address] [address] [address] Ayush Rice Protein [Mass/Vol] 7.2 g/dL Normal 6.4-8.2 [facility] Comment on above: Performed By: #### T SH, T4, FT3, CMP, LIPID #### [facility] [address] [address] [address] Ayush Rice Sodium [Moles/Vol] 143 mmol/L Normal 136-145 [facility] Comment on above: Performed By: #### T SH, T4, FT3, CMP, LIPID #### [facility] [address] [address] [address] Ayush Rice Urea nitrogen [Mass/Vol] 15.0 mg/dL Normal 7.0-18.0 [facility] Comment on above: Performed By: #### T SH, T4, FT3, CMP, LIPID #### [facility] [address] [place] [address] Dr. Ayush Rice Urea nitrogen/Creatinin e [Mass ratio] 12.7 mg/mg Normal [facility] Comment on above: Performed By: #### T SH, T4, FT3, CMP, LIPID #### [facility] [address] [place] [address] Dr. Ayush Rice T4on 11-04-2022 T4 [Mass/Vol] 7.30 ug/dL Normal 4.50-12.10 [facility] Comment on above: Performed By: #### T SH, T4, FT3, CMP, LIPID #### [facility] [address] [place] [address] Dr. Ayush Rice TSHon 11-04-2022 TSH 1.301 uIU/mL Normal 0.358-3.740 [facility] Comment on above: Performed By: #### T SH, T4, FT3, CMP, LIPID #### [facility] [address] [place] [address] Dr. Ayush Rice VITAMIN D 25 OHon 11-04-2022 VIT D 25-OH 20.0 ng/mL Normal [facility] Comment on above: Performed By: #### T SH, T4, FT3, CMP, LIPID #### [facility] [address] [place] [address] Dr. Ayush Rice VIT D RANGES SEE BELOW Normal [facility] Comment on above: Result Comment: <20 ng/mL Vit D deficient 20 - <30 ng/mL Vit D insufficient 30 - 100 ng/mL Vit D sufficient >100 ng/mL Potential Toxicity Performed By: #### T SH, T4, FT3, CMP, LIPID #### [facility] [address] [place] [address] Dr. Ayush Rice ECHOCARDIO M/2D COMPLETEon 0 08-03-2022 ECHOCARDIO M/2D COMPLETE Patient: RIOS BARTLETTJenelle Exam Date: 08/03/2022 : 1965 Gender:M Ordering : DR MARY KLINE . Admission #: [id number] Family : Order #: [id number] CLICK HERE TO VIEW EXAM ECHOCARDIOGRAM REPORT [...] Ma M.D. on 08/04/2022 at 19:15 Normal [facility] NM STRESS/REST MULTIon 08-03 NM STRESS/REST MULTI Patient: RIOS BARTLETTJenelle Exam Date: 08/03/2022 : 1965 Gender:M Ordering : DR MARY KLINE . Admission #: [id number] Family : Order #: [id number] CLICK HERE TO VIEW EXAM RADIOLOGY REPORT [...] Marie MD on 08/10/2022 at 13:50 Normal [facility] XR CHEST 2 Von 07-30-2022 XR [...] by: OLIVIA BECKER Date: 2022-07-30 17:15 Normal [facility] XR KNEE LT 4V or >on [...] by: OLIVIA BECKER Date: 2022-07-30 17:16 Normal [facility] *MRSA/MSSA DNA NASALon 03-04 *MRSA/MSSA DNA NASAL Clinical Report: (D) Specimen: NASAL SWAB Collected: 03/04/2022 12:14 Status: Final Last Updated: 03/04/2022 21:39 MSSA DNA (Final) Methicillin Susceptible Staphylococcus aureus DNA Detected MRSA DNA (Final) Negative Normal [facility] Comment on above: Performed By: #### 3 1595 #### [facility] [address] APTTon 09-07-2022 aPTT Coag (Bld) [Time] 26.7 s Normal 25.0-35.0 [facility] Comment on above: Result Comment: ALL [...] THIS PURPOSE. Performed By: #### 5 7307, [id number] #### [facility] [address] [place] [address], [facility] BASIC METABOLIC PANELon 09-0 -2021 Calcium [Mass/Vol] 8.9 mg/dL Normal 8.6-10.3 [facility] Comment on above: Performed By: #### 0 0071 #### [facility] [address] [place] [address], [facility] Chloride [Moles/Vol] 105 mmol/L Normal 98-107 [facility] Comment on above: Performed By: #### 0 0071 #### [facility] [address] [place] [address], [facility] CO2 [Moles/Vol] 26 mmol/L Normal 21-31 [facility] Comment on above: Performed By: #### 0 0071 #### [facility] [address] [place] [address], [facility] Creatinine [Mass/Vol] 1.00 mg/dL Normal 0.70-1.30 [facility] Comment on above: Performed By: #### 0 0071 #### [facility] [address] [place] [address], [facility] GFR/1.73 sq M.predicted among non-blacks MDRD (S/P/Bld) [Vol rate/Area] mL/min/{1.73_m2} Normal >60 [facility] Comment on above: Result Comment: [facility]'s estimated glomerular filtration rate (eGFR) will [...] individuals. Performed By: #### 0 0071 #### [facility] [address] [facility] [place] [address], [facility] Glucose [Mass/Vol] 95 mg/dL Normal 70-100 [facility] Comment on above: Performed By: #### 0 0071 #### [facility] [address] [place] [address], [facility] Potassium [Moles/Vol] 4.9 mmol/L Normal 3.5-5.1 [facility] Comment on above: Performed By: #### 0 0071 #### [facility] [address] [place] [address], [facility] Sodium [Moles/Vol] 138 mmol/L Normal 136-145 [facility] Comment on above: Performed By: #### 0 0071 #### [facility] [address] [facility] [place] [address], [facility] Urea nitrogen [Mass/Vol] 15 mg/dL Normal 7-25 [facility] Comment on above: Performed By: #### 0 0071 #### [facility] [address] [facility] [place] [address], [facility] CBC W/DIFFon 03-04-2022 ABS IMM GRANS 0.0 10*3/uL Normal 0.0-0.2 [facility] Comment on above: Performed By: #### 5 0103 #### [facility] [address] [place] [id number], [facility] ABS NEUTROPHILS 6.7 10*3/uL Normal 1.6-7.6 [facility] Comment on above: Performed By: #### 5 0103 #### [facility] [address] [place] [address], [facility] Basophils (Bld) [#/Vol] 0.0 10*3/uL Normal 0.0-0.2 [facility] Comment on above: Performed By: #### 5 0103 #### [facility] [address] [place] [address], [facility] Basophils/100 WBC (Bld) 0.4 % Normal 0.0-1.0 [facility] Comment on above: Performed By: #### 5 0103 #### [facility] [address] [place] [address], [facility] Eosinophils (Bld) [#/Vol] 0.2 10*3/uL Normal 0.0-0.5 [facility] Comment on above: Performed By: #### 5 0103 #### [facility] [address] [place] [address], [facility] Eosinophils/100 WBC (Bld) 2.0 % Normal 0.0-6.0 [facility] Comment on above: Performed By: #### 5 0103 #### [facility] [address] [place] [address], [facility] Erythrocyte distribution width (RBC) [Ratio] 13.8 % Normal 11.5-15.0 [facility] Comment on above: Performed By: #### 5 3 #### [facility] [address] [place] [address], [facility] Hematocrit (Bld) [Volume fraction] 48.0 % Normal 39.0-50.0 [facility] Comment on above: Performed By: #### 5 3 #### [facility] [address] [place] [address], [facility] Hemoglobin (Bld) [Mass/Vol] 15.9 g/dL Normal 13.0-17.0 [facility] Comment on above: Performed By: #### 5 0103 #### [facility] [address] IMMATURE GRANS 0.3 % Normal 0.0-1.0 [facility] Comment on above: Performed By: #### 5 0103 #### [facility] [address] Lymphocytes (Bld) [#/Vol] 3.3 10*3/uL Normal 1.2-4.0 [facility] Comment on above: Performed By: #### 5 0103 #### [facility] [address] Lymphocytes/100 WBC (Bld) 29.7 % Normal 20.0-45.0 [facility] Comment on above: Performed By: #### 5 0103 #### [facility] [address] MCH (RBC) [Entitic mass] 29.8 pg Normal 27.0-33.0 [facility] Comment on above: Performed By: #### 5 0103 #### [facility] [address] MCHC (RBC) [Mass/Vol] 33.1 g/dL Normal 32.0-35.0 [facility] Comment on above: Performed By: #### 5 0103 #### [facility] [address] MCV (RBC) [Entitic vol] 90.1 fL Normal 82.0-98.0 [facility] Comment on above: Performed By: #### 5 3 #### [facility] [address] [place] [address], [facility] Monocytes (Bld) [#/Vol] 0.8 10*3/uL Normal 0.1-1.0 [facility] Comment on above: Performed By: #### 5 0103 #### [facility] [address] [place] [address], [facility] MONOS 7.4 % Normal 5.0-12.0 [facility] Comment on above: Performed By: #### 5 0103 #### [facility] [address] [facility] [place] [address], [facility] Neutrophils/100 WBC (Bld) 60.2 % Normal 40.0-72.0 [facility] Comment on above: Performed By: #### 5 0103 #### [facility] [address] [place] [address], [facility] Nucleated RBC/100 WBC (Bld) [Ratio] 0 % Normal 0-0 [facility] Comment on above: Performed By: #### 5 0103 #### [facility] [address] [place] [address], [facility] PLAT CNT 197 10*3/uL Normal 150-400 [facility] Comment on above: Performed By: #### 5 0103 #### [facility] [address] [place] [address], [facility] RBC (Bld) [#/Vol] 5.33 10*6/uL Normal 4.20-5.70 [facility] Comment on above: Performed By: #### 5 0103 #### [facility] [address] [facility] [place] [address], [facility] WBC (Bld) [#/Vol] 11.07 10*3/uL High 4.00-10.60 [facility] Comment on above: Performed By: #### 5 0103 #### [facility] [address] PROTHROMBIN TIMEon 2 INR Coag (PPP) [Relative time] 0.97 {INR} Normal 0.91-1.16 [facility] Comment on above: Result Comment: ACCC [...] CHEST 1995;108:[id number]. Performed By: #### 5 7307, [id number] #### [facility] [address] [place] [address], [facility] PT Coag (PPP) [Time] 12.9 s Normal 12.3-14.8 [facility] Comment on above: Result Comment: ALL RESULTS MUST BE INTERPRETED WITH RESPECT TO BLOOD DRAWING ARTIFACT OR DILUTION ERROR OF ANTICOAGULANT AT THE TIME OF SAMPLING. Performed By: #### 5 7307, 76522 #### [facility] [address] [place] [address], [facility] TYPE AND CROSSMATCHon 2021 ABO INTERPRETATION A Normal [facility] Comment on above: Performed By: #### 6 2594 #### [facility] [address] [place] [id number], [facility] RH INTERPRETATION Positive Normal [facility] Comment on above: Performed By: #### 6 2594 #### [facility] [address] [place] [id number], [facility] URINALYSISon 03-04-2022 Appearance (U) CLEAR Normal CLEAR [facility] Comment on above: Performed By: #### 1 0008 #### [facility] [address] [place] [address], [place] Bilirubin Ql (U) Negative Normal NEGATIVE [facility] Comment on above: Performed By: #### 1 0008 #### [facility] [address] [place] [address], [place] Color (U) YELLOW Normal YELLOW [facility] Comment on above: Performed By: #### 1 0008 #### [facility] [address] [place] [address], [place] EPIS NONE SEEN Normal FEW,OCC,NON E SEEN [facility] Comment on above: Performed By: #### 1 0008 #### [facility] [address] [place] [address], [place] Glucose Ql (U) Negative Normal NEGATIVE [facility] Comment on above: Performed By: #### 1 0008 #### [facility] [address] [place] [address], [place] Hemoglobin Ql (U) Negative Normal NEGATIVE [facility] Comment on above: Performed By: #### 1 0008 #### [facility] [address] [place] [address], [place] KETONE Negative Normal NEGATIVE [facility] Comment on above: Performed By: #### 1 0008 #### [facility] [address] [place] [address], [place] LEUK OTF Negative Normal NEGATIVE [facility] Comment on above: Performed By: #### 1 0008 #### [facility] [address] [place] [address], [place] MUCUS THREADS OCC Abnormal NONE SEEN [facility] Comment on above: Performed By: #### 1 0008 #### [facility] [address] [place] [address], [place] Nitrite Ql (U) Negative Normal NEGATIVE [facility] Comment on above: Performed By: #### 1 0008 #### [address] pH (U) 5.5 [pH] Normal 5.0-8.0 [facility] Comment on above: Performed By: #### 1 0008 #### [facility] [address] Protein Ql (U) Negative Normal NEGATIVE [facility] Comment on above: Performed By: #### 1 0008 #### [address] RBC 0-2 Abnormal NONE SEEN [facility] Comment on above: Performed By: #### 1 0008 #### [address] SPEC GRAV 1.020 Normal 1.015-1.020 [facility] Comment on above: Performed By: #### 1 0008 #### [address] WBC UA 0-2 Abnormal NONE SEEN [facility] Comment on above: Performed By: #### 1 0008 #### [address] MRI LUMBAR SPINE WO CONTRAST on 01-28-2022 MRI LUMBAR SPINE WO CONTRAST [facility] Department of Radiology [address] [place] [id number] Patient Name: RIOS BARTLETT : 1965 Sex: M Age: Race: White Pt. Location: Patient Status: O Ordered Date: 01/07/2022 12:25:00 PM Completed Date: 01/28/2022 11:47 AM Requesting Provider: ARIEL WALKER Attending Provider: Report Copy To: Signs [...] identified. Electronically signed: Jairo Tapia. Transcribed by: [email or web address], User Resident: Electronically Signed by: JAIRO TAPIA @ 01/28/2022 03:00 PM Normal [facility] Comment on above: Order Comment: Evalu [...] developed and its performance characteristic determined by [employer] and validated at [facility]. This test has not been FDA cleared [...] for SARS Antigen by HANY PERFORMED BY: [place] [id number] PATHOLOGIST REHANGER LEONA ALVAREZ M.D. Normal [facility] Comment on above: Performed By: #### S OFNEW, COVID-19 SOHAIL #### [place] [id number] [facility] Sohail Ag Negativeon 11-04-19 Sohail Ag Negative Negative Normal Negative [facility] Comment on above: Result Comment: This is a duplicate Sohail SARS Antigen (HANY) result to be used for statistical tracking purpose only. PERFORMED BY: [place] [address] PATHOLOGIST REHANGER LEONA ALVAREZ M.D. Performed By: #### S OFNEW, COVID-19 SOHAIL #### [address] LUMBAR SPINE 2 OR 3 VWSon LUMBAR SPINE 2 OR 3 VWS [facility] Department of Radiology [address] [place] [address] Patient Name: RIOS BARTLETT : [...] abnormality. Electronically signed: Laurent Lopez. Transcribed by: [email or web address], User Resident: Electronically Signed by: LAURENT LOPEZ @ 03/22/2021 02:01 PM Normal [facility] XR LUMBAR SPINE (2-3 VIEWS)o n [...] Jermaine Krishnamurthy MD 02/08/21 Final result Normal [facility] XR KNEE LEFT STANDARDon 08- XR KNEE [...] Jr.igned by:Miles Mishra Jr., MD02/11/17Final result Normal [facility] Vital Signs Date Time Vital Sign Value Performing Clinician Facility 01-17-2025 20:23-0400 Body height 175.3 cm [facility] 2 [facility] 01-17-2025 20:23-0400 Body mass index (BMI) [Ratio] 50.06 kg/m2 [facility] 2 [facility] 01-17-2025 20:23-0400 Body weight 153.[address] 12-27-2024 10:45-0400 SaO2% (BldA) [Mass fraction] 108 % [facility] Comment on above: Performed By: #### ABG #### [facility] [address] [place] [address] 12-26-2024 21:14-0400 SaO2% (BldA) [Mass fraction] 92 % [facility] Comment on above: Performed By: #### ABG #### [facility]) [address] [place] [address] VIR 12-16-2022 13:33-0400 Blood Pressure Location Todd GOODWIN [facility] 12-16-2022 13:33-0400 Diastolic blood pressure 66 mm[Hg] Todd GOODWIN [facility] 12-16-2022 13:33-0400 Heart rate 70 /min Todd GOODWIN [facility] 12-16-2022 13:33-0400 Respiratory rate 18 /min Todd GOODWIN [facility] [place] 12-16-2022 13:33-0400 Systolic blood pressure 118 mm[Hg] Todd GOODWIN [facility] [place] 02-08-2021 10:49-0400 Body mass index (BMI) [Ratio] 42.33 kg/m2 Mary Kline MD Work Phone: [employer] Work Phone: 02-08-2021 10:49-0400 Body temperature 98.4 [degF] Mary Kline MD Work Phone: [employer] Work Phone: 02-08-2021 10:49-0400 Body weight 133.81 kg Mary Kline MD Work Phone: [employer] Work Phone: 02-08-2021 10:49-0400 Diastolic blood pressure 90 mm[Hg] Mary Kline MD Work Phone: [employer] Work Phone: 02-08-2021 10:49-0400 Heart rate 92 /min Mary Kline MD Work Phone: [employer] Work Phone: 02-08-2021 10:49-0400 Respiratory rate 18 /min Mary Kline MD Work Phone: [employer] Work Phone: 02-08-2021 10:49-0400 SaO2% (BldA) [Mass fraction] 94 % Mary Kline MD Work Phone: [employer] Work Phone: 02-08-2021 10:49-0400 Systolic blood pressure 119 mm[Hg] Mary Kline MD Work Phone: [employer] Work Phone: Encounters Encounter Date Encounter Type Care Provider Facility Start: 01-26-2025 End: 01-26-2025 Telephone encounter Mary Kline MD Work Phone: [facility] Comment on above: Sleep Lab (BiPAP) Start: 01-22-2025 End: 01-22-2025 ambulatory DIANE KHAN [facility] Start: 01-18-2025 End: 01-18-2025 Telephone encounter Kiya Dumont MD Work Phone: [facility] Start: 01-17-2025 End: 01-17-2025 Clinical Support Mansoor GAR Work Phone: [facility] Comment on above: Obstructive sleep ap sree Start: 01-08-2025 End: 01-08-2025 ambulatory [facility] Start: 01-02-2025 End: 01-02-2025 Telephone encounter Alyssa Helm [facility] Start: 12-28-2024 End: 12-28-2024 Telephone encounter Orders Support User Transcribe [facility] Start: 12-26-2024 End: 12-31-2024 Evaluation and management of inpatient ALEJANDRO BIGGS [facility] Start: 12-25-2024 End: 12-26-2024 Evaluation and management of inpatient MARY KLINE [facility] Start: 11-16-2024 End: 11-16-2024 ambulatory PA-C MARNIE YOUSSEF Facility:[facility] Start: 11-08-2024 ambulatory PA-C MARNIE YOUSSEF Fac ility:[facility] Start: 08-04-2024 End: 08-04-2024 Telemedicine consultation with patient London Carlson MD Work Phone: Neurology Start: 08-04-2024 End: 08-04-2024 ambulatory London Carlson MD Work Phone: Neurology Comment on above: Snoring (Primary Dx) ; Witnessed episode of apnea; Frequent nocturnal awakening; Nocturia; RLS (restless legs syndrome); Suspected sleep apnea Start: 12-30-2022 End: 12-30-2022 Patient encounter procedure Todd GOODWIN [facility] [place] Start: 12-16-2022 End: 12-16-2022 Patient encounter procedure Todd GOODWIN [facility] [place] Start: 11-04-2022 End: 11-05-[address] MARY KLINE . Facility: Start: 08-10-2022 End: 08-11-[address] MARY KLINE . Facility: Start: 08-03-2022 End: 08-04-[address] MARY KLINE . Facility: Start: 07-30-2022 End: 07-31-[address] MARY KLINE . Facility: Start: 01-28-2022 End: 01-29-2022 ambulatory MARY KLINE Facility:[facility] Start: 02-08-2021 Emergency department patient visit MARY Blue [facility] Start: 02-08-2021 End: 02-08-2021 Emergency department patient visit Mary Kline MD Work Phone: [facility] Comment on above: Acute exacerbation o f chronic low back pain (Primary Dx) Start: 02-11-2017 End: 02-12-2017 Ambulatory OLIVIA ZAMAN [facility] Procedures Date Procedure Procedure Detail Performing Clinician Start: 11-04-[address] MARY KLINE . Comment on above: Performed By: #### TSH, T4, FT3, CMP, LI PID #### [facility] [address] [place] [address] [address] Ayush Rice Start: 03-04-2022 Antibody screen MARY KLINE Comment on above: Performed By: #### [id number] #### [facility] [address] [place] [address], [facility] Start: 08-27-2021 Exploration procedure Todd GOODWIN Comment on above: left mid back Start: 02-08-2021 Radex spine lumbosacral 2/3 views Niall De La Torre INVESTIGATION DIVISION CAPTAIN - REHABILITATION THERAPY AIDE Work Phone: Start: 07-01-2020 H/O: surgery S/P UPPP (uvulopalatophary ngoplasty) Orders Transcribe Start: 06-28-2019 Uvulopalatopharyngoplasty Todd GOODWIN Start: 02-11-2017 Radiologic examination knee 3 views OLIVIA ZAMAN Start: 10-06-2016 L knee synovectomy, poly exchange, quad plasty complicated by obesity Todd GOODWIN ACDF 5-7 Todd GOODWIN Gastric sleeve Todd CALDWELLL History of revision of left total knee arthroplasty Todd GOODWIN left knee arthroscopy Michae kale GOODWIN left total knee arthroplasty Todd GOODWIN Local anesthetic ner ve block in lower limb Todd GOODWIN Comment on above: left knee Lumbar spinal fusion Todd GOODWIN Nasal septoplasty Todd KAY Tonsillectomy and adenoidectomy Todd GOODWIN Torsion of testis (disorder) Todd GOODWIN Plan of Treatment Date Care Activity Detail Author Start: 11-05-2027 Prostate specific antigen measurement Prostate Cancer Screening Discussion [facility] Start: 01-17-2026 Adult BMI Screening [facility] Start: 01-17-2026 Tobacco Screening Tobacco Screening [facility] [employer] [facility] Start: 12-31-2025 Adult BMI Screening [facility] Start: 12-27-2025 Adult BMI Screening Adult BMI Screen ing [facility] [employer] [facility] Start: 12-26-2025 Tobacco Screening Tobacco Screening [facility] [employer] [facility] Start: 04-03-2025 End: 04-03-2025 Clinical Support 04/03/2025 8:00 PM EDT Clinical Support [facility] [address] [place] [id number] [facility] Start: 03-15-2025 End: 03-15-2025 Patient encounter procedure 03/15/2025 3:00 PM EDT Office Visit [facility] [address] [id number] Diane Khan, DO [address] [address] [facility] Start: 03-14-2025 Diabetes Screening Diabetes Screenin [facility] Start: 02-26-2025 Influenza vaccination Influenza Vacc ine [facility] Start: 01-22-2025 End: 01-22-2025 Patient encounter procedure 01/22/2025 11:30 AM EDT Appointment [facility] [address] [place] [address] Diane Khan, DO [address] [address] [facility] Start: 01-17-2025 End: 01-17-2025 Clinical Support 01/17/2025 8:00 PM EDT Clinical Support [facility] [address] [place] [address] Mansoor Denis, INVESTIGATION DIVISION CAPTAIN-REHABILITATION THERAPY AIDE [address] [place] [address] [facility] Start: 10-20-2024 End: 10-20-2024 Patient encounter procedure 10/20/2024 9:10 PM EDT Office Visit Neurology [address] [place] [address] [facility] Comment on above: [facility] Start: 02-27-2024 Covid-19 Vaccine ( season) Covid-19 Vaccine ( season) [facility] Start: 02-27-2024 Influenza vaccination Influenza Vacc ine (#1) [facility] Start: 02-26-2021 Influenza vaccination Flu vaccine (# 1) [employer] Phone: Start: 2016 Administration of varicella zoster vaccine Zoster (Shingles) Vaccine (1 of 2) [facility] Start: 2016 Pneumococcal Vaccine : 50+ (1 of 1 - PCV) Pneumococcal Vaccine: 50+ (1 of 1 - PCV) [facility] Start: 2016 Shingles Vaccine (1 of 2) Shingles Vaccine (1 of 2) [employer] Phone: Start: 2016 Shingrix Vaccine (1 of 2) Shingrix Vaccine (1 of 2) [facility] Start: 09-07-2011 Screening for malign ant neoplasm of colon [facility] Start: 2006 [facility] [employer] Phone: Start: 2001 Lipid panel Lipid Screening [facility] Start: 1985 DTaP,Tdap and Td Vaccines (1 - Tdap) DTaP,Tdap and Td Vaccines (1 - Tdap) [facility] Start: 1985 DTaP/Tdap/Td vaccine (1 - Tdap) DTaP/Tdap/Td vaccine (1 - Tdap) [employer] Phone: Start: 1985 Hepatitis B Vaccine (1 of 3 - 19+ 3-dose series) Hepatitis B Vaccine (1 of 3 - 19+ 3-dose series) [facility] Start: 1985 Urine microalbumin profile DTaP,Tdap,Td Vaccine (1 - Tdap) [facility] Start: 1984 Adult BMI Follow Up Plan Adult BMI Follow Up Plan [facility] Start: 1984 Anxiety Screening Anxiety Screening [facility] Start: 1984 Depression Screening Depression Scre ening [facility] Start: 1984 Hepatitis C screening Hepatitis C [facility] Start: 1984 HIV screening HIV Screening [facility] Start: 1981 HIV screening HIV screen [facility] Work Phone: Start: 1978 Depression Screening Depression Scre [facility] Start: 1966 Hepatitis C screening Hepatitis C [facility] Work Phone: End: 08-04-2025 Polysomnogram POLYSOMNOGRAM (PSG) Procedures Routine Snoring Witnessed episode of apnea Frequent nocturnal awakening Nocturia RLS (restless legs syndrome) Suspected sleep apnea 1 Occurrences starting 08/04/2024 until 08/04/2025 [facility] Work Phone: Comment on above: 1 Occurrences starti ng 08/04/2024 until 08/04/2025 XR LUMBAR SPINE (2-3 VIEWS) XR LUMBAR SPINE (2-3 VIEWS) Imaging STAT 02/08/2021 12:10 PM EDT [facility] Work Phone: Immunizations Immunization Date Immunization Notes Care Provider Jenniffre lagos 04-14-2016 influenza virus vaccine, unspecified formulation London Carlson MD Work Phone: [facility] NEGATED: Highlighted row has not occurred!08-13-2021 influenza virus vaccine, unspecified formulation Todd GOODWIN [facility] [place] Payers Date Payer Category Payer Medicare HMO [facility] [place]SU[place]O LLANOS [id number] 2021 Private Health Insurance [facility] HMO [id number] 2020 Medicare [id number] 2019 Unknown [id number] 2016 Unknown [id number] 1966 Unknown [id number] [id number]. 173 1966 Unknown [id number] 2.16.840.1.909829.3.579.2. 647 1966 Unknown [id number] 2.16.840.1.871375.3.579.2. 593 1966 Unknown [id number] 2.16.840.1.137291.3.579.2. 593 1966 Unknown [id number] 2.16.840.1.749820.3.579.2. 593 1966 Unknown [id number] 2.16.840.1.656279.3.579.2. 593 1966 Unknown [id number] 2.16.840.1.114344.3.579.2. 727 1966 Unknown [id number] 2.16.840.1.137647.3.579.2. 1286 1966 Unknown [id number] 2.16.840.1.142180.3.579.2. 1286 1966 Unknown [id number] 2.16.840.1.157342.3.579.2. 1286 1966 Unknown [id number] 2.16.840.1.671904.3.579.2. 1286 1966 Unknown [id number] [id number]. 1286 Social History Date Type Detail Facility Start: 04-25-2020 End: 02-08-2021 Tobacco smoking status COIS Never smoker [facility] [place] Start: 04-25-2020 End: 02-08-2021 Tobacco use and exposure Never used [employer] Start: 1965 Sex Assigned At Not on file [employer] Work Phone: Exposure to SARS-CoV -2 (event) Not sure [facility] Tobacco smoking status Never [facility] [place] Start: 07-10-2020 End: 08-02-[address] Male [facility] Tobacco smoking stat [facility] Tobacco smoking consumption unknown [facility] Start: 07-10-2020 End: 08-02-2024 History of Social function [facility] Start: 12-26-2024 End: 01-17-2025 Alcoholic beverage intake Lifetime non-drinker (finding) [employer] Has the [employer], [employer], or [employer] threatened to shut off services in your home in past 12Mo No [employer] How often to you hav e a drink containing alcohol? Never [employer] Start: 01-31-2015 Sex Male (finding) [facility] [employer] [facility] Medical Equipment Procedure Code Equipment Code Equipment Origin al Text Equipment Identifier Dates Sys Tng Susp Adj Kntls Bn Anch - Sna - [id number] Start: 06-24-2020 Goals Date Patient Goal Desired Activity /State Personal health goal Comment on above: Formatting of this n ote might be different from the original. Evaluation of progress towards goal: Patient plans to return to home with self care when he is improved. Functional Status Date Assessment Result Facility 12-16-2022 Functional Status N/A [facility] [place] [facility] Clinical Notes 08-04-2024 to 02-19-2025 Telephone Encounter - Jeffry Orozco - 01/26/2025 9:07 AM EDTTelephone Encounter - Jeffry Orozco - 01/26/2025 9:07 AM EDTTelephone Encounter - Kiya Dumont MD - 01/18/2025 1:07 PM EDT Note Date & Type Note Facility 02-19-2025 Note [facility] Coordinator alba fied patient's insurance benefits via [email or web address] Active Directory Engineer. Patient has [email or web address] Medicare. Effective 06/28/2021 with no end date. Active coverage currently. Patient has bariatric surgery coverage (CPT Codes 73195 & 92209) per Medicare Guidelines. Prior auth is required. BMI is 49.5. [facility] 02-19-2025 Note MBS Coordinator call ed patient regarding referral received to Bariatrics program. Patient confirmed interest in Bariatric Program. Patient had a sleeve gastrectomy in 2008 in [place]. His height is 5 feet, 9 inches and weight is 335 pounds making his BMI 49.5. The initial process was explained including the need to attend a seminar, insurance verification, and scheduling initial surgical consultation to establish follow up and/or discuss revisional surgery. Email address verified. Initial consultation scheduled and seminar link sent to patient. [facility] 01-26-2025 Miscellaneous Notes 01/25 order received Scheduled BiPAP retitration at [facility] on 04/03 Confirmation emailed [employer] BiPAP re-titration order & 12/27 Biggs notes in epic Re-Titration study with TCO2 monitoring. Starting at BiPAP 20/13 CM of water without supplemental oxygen, increasing the pressure support for persistent hypoventilation. VAPS should be initiated if BiPAP fails to treat hypoventilation. documented in this encounter [facility] 01-26-2025 Telephone encounter Note 01/25 order received Scheduled BiPAP retitration at [facility] on 04/03 Confirmation emailed [employer] BiPAP re-titration order & 12/27 Biggs notes in epic Re-Titration study with TCO2 monitoring. Starting at BiPAP 20/13 CM of water without supplemental oxygen, increasing the pressure support for persistent hypoventilation. VAPS should be initiated if BiPAP fails to treat hypoventilation. [facility] 01-18-2025 Miscellaneous Notes Split night study ordered [...] (3%)=85.2 events/hour; AHI (4%)=82.2 events/hour; Paul SpO2=69.0%; (Zoupuq=441.0 lbs; BMI=49.8 kg/m2) DIAGNOSIS: Obstructive Sleep Apnea [...] to treat hypoventilation. documented in this encounter [facility] 01-18-2025 Telephone encounter Note Split night study ordered by Mansoor Denis APRN, CNP Please see full report. Tessa please see if pulm appointment can be [...] (3%)=85.2 events/hour; AHI (4%)=82.2 events/hour; Paul SpO2=69.0%; (Zwkotl=615.0 lbs; BMI=49.8 kg/m2) DIAGNOSIS: Obstructive Sleep Apnea [...] initiated if BiPAP fails to treat hypoventilation. [facility] Work Phone: 01-02-2025 Miscellaneous Notes Images from the original note were not included. Per sleep lab 12/28/24 encounter: Kiya Dumont MD routed this conversation to [facility] Sleep Dietary Aide Alyssa Helm (Selected Message) Kiya Dumont MD 01/01/25 3:18 PM Note OK for split night MUST use TCO2 given history of hypoxic hypercapnic respiratory failure PPG read/follow would likely benefit from pulm/sleep consult, PFT/CXR given history documented in this encounter [facility] 01-02-2025 Telephone encounter Note Images from the original note were not included. Per sleep lab 12/28/24 encounter: Kiya Dumont MD routed this conversation to [facility] Sleep Dietary Aide Alyssa Helm (Selected Message) Kiya Dumont MD 01/01/25 3:18 PM Note OK for split night MUST use TCO2 given history of hypoxic hypercapnic respiratory failure PPG read/follow would likely benefit from pulm/sleep consult, PFT/CXR given history [facility] 12-28-2024 Miscellaneous Notes 12/27 Order received Scheduled Split Night @ [facility] on 01/17 Chatted pre auth Routed Tim Emailed confirmation [email or web address] Split Night Order and 12/27 Biggs notes in epic PT asked for [facility] documented in this encounter [facility] 12-28-2024 Telephone encounter Note 12/27 Order received Scheduled Split Night @ [facility] on 01/17 Chatted pre auth Routed Tim Emailed confirmation [email or web address] Split Night Order and 12/27 Biggs notes in epic PT asked for [facility] 11-16-2024 Note Patient Education Urology Urinary Frequency, [...] keep your urine pale yellow. ? Take hykf-qnr-fagpfhm or prescription medicines. ? Eat foods that are high in fiber, such as beans, whole grains, and fresh fruits and vegetables. ? Limit foods that are high in fat and processed sugars, such as fried or sweet foods. General instructions ??? Take cyrn-nob-xmqwlhb and prescription medicines only as told by [...] muscles that help control urination. ??? Take qjpc-elz-yjbeaec and prescription medicines only as told by your health care provider. ??? Contact a health care provider if your symptoms do not improve or get worse. This information is not intended to replace advice given to you by your health care provider. Make sure you discuss any questions you have with your health care provider. Document Revised: 01/17/2021 Document Reviewed: 01/17/2021 Claim Maps Patient Education ? 2023 [employer] [facility] 08-04-2024 Neil Black MD - 08/04/2024 [...] detail and any treatments options. - Call [phone] to schedule your sleep study and follow up appointment if it is not scheduled after your visit today with one of our schedulers. Sleep Nurse Practitioners: Nessa Bermudez CNP [facility] [address] [place] [address] [facility] [address] [place] [address] [facility] [address] [place] [address] Wednesday, Wednesday, Wednesday Appt: [phone] Marnie Bonilla, PhD, [facility] [address] [place] [address] [facility] [address] [place] [address] Mondays, Tuesdays & Wednesday Appt: [phone] Polina Anglin, [facility] [address] [place] [address] [facility] [address] [place] [address] [facility] [address] [place] [address] Wednesday, Wednesday, Wednesday Appt: [phone] Vania Bardales, [facility] [address] [place] [address] [facility] [address] [place] [address] [facility] [address] [place] [address] Wednesday, , Wednesday Appt: [phone] Maria Guadalupe Hemphill, [facility] [address] [place] [address] [facility] [address] [place] [address] Wednesday, Wednesday, Wednesday, Wednesday Appt: [phone] Parul Durham, [facility] [address] [place] [address] [facility] [address] [place] [address] Wednesday, Wednesday, Wednesday, Wednesday Appt: [phone] Any appointments can be scheduled through the central scheduling system for the [facility] [place] at [phone]. [facility] now offers direct scheduling for patients to schedule appointments. Virtual visits are also available. If not covered by your insurance, there is a 35% discount. Please contact your insurance to determine coverage. Call the office at [phone], option #5 for questions. May use Message My Doc through My Chart for questions. May use My Chart Refills for refill requests. [facility] website: [email or web address] documented in this encounter [facility] 08-04-2024 Note HNO ID: [id number] Author: LONDON CARLSON MD Service: ? Author Type: Physician Type: Progress Notes Filed: 08/08/2024 09:00 Note Text: [facility] New Patient Evaluation PATIENT NAME: Rios Bartlett DATE OF SERVICE: August 04, 2024 I have communicated my name and active licensure. The patient's identity and physical location were verified at the time of this visit. Either the patient or their legal player services representative has been informed of the risks [...] at an outside institution near his home ([facility]). 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 high chance of dozing (3) Watching TV? high (more content not included)... [facility] 08-04-2024 History of Presen t illness Narrative Images from the original note were not included. [facility] New Patient Evaluation PATIENT NAME: Rios Bartlett DATE OF SERVICE: August 04, 2024 I have communicated my name and active licensure. The patient's identity and physical location were verified at the time of this visit. Either the patient or their legal player services representative has been informed of the risks [...] at an outside institution near his home ([facility]). 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 high chance [...] resident/fellow. London Carlson MD Sleep Medicine Appointments: [phone] Office: [phone] August 08, 2024 8:59 AM documented in this encounter [facility] Evaluation + Plan note Future Appointments Appointment Date:12/30/2022 02:40:00 PM Scheduled Provider:Todd GOODWIN MD Location:[facility] Appointment Type: Procedure 30 [facility] [place] Evaluation note Diagnosis Acute exacerbation of chronic low back pain- Primary documented in this encounter [employer] Phone: evaluation note* Diagnosis Snoring- Primary Other dyspnea and respiratory abnormality Witnessed episode of apnea Frequent nocturnal awakening Other sleep disturbances Nocturia RLS (restless legs syndrome) Restless legs syndrome (RLS) Suspected sleep apnea [facility] Diagnosis Obstructive sleep apnea Obstructive sleep apnea (adult) (pediatric) [facility] Narrative No data available for this section [facility] [place] [facility] Discharge instructions* Attachments The following attachments cannot be sent through Care Everywhere. * Low Back Pain: Exercises (Croatian) * Back Pain (Croatian) [facility] Work Phone: Hospital Discharge instructions No data available for this section [facility] [place] InstructionsNot on filedocumented in this encounter [facility] filedocumented in this encounter [facility]ructionsNot on filedocumented in this encounter [facility] No data available for this section [facility] [place] Reason for visit Narrative* Misc (Routine) - Closed Specialty Diagnoses / Procedures Referred By Zen headley Referred To Contact Diagnoses Obstructive sleep apnea Procedures Split Night Sleep Study Mansoor Denis, INVESTIGATION DIVISION CAPTAIN-REHABILITATION THERAPY AIDE [address] [place] [address] Phone: tel: fax: [place] [address] [place] [address] Phone: tel: Referral ID Status Reason Start Date Expiration Date Visits Re quested Visits Authorized [id number] Closed 12/27/2024 12/27/2025 1 1 [facility] Summary Purpose Family History No Family History [...] Documents on File Type Date Recorded Patient Active Directory Engineer Expl anation ACP-Advance Directive ACP-Power of General Contractor Date Activated Date Inactivated Comments 12/26/2024 2:34 [...] and content) DATE CREATED AUTHOR 12/22/2017 [facility] DATE CREATED AUTHOR AUTHOR'S ORGANIZ ATION 02/09/2021 Elle Cooper [facility] DATE CREATED AUTHOR AUTHOR'S ORGANIZ ATION 12/05/2021 [facility] DATE CREATED AUTHOR AUTHOR'S ORGANIZ ATION 03/05/2022 [facility] DATE CREATED AUTHOR AUTHOR'S ORGANIZ ATION 11/08/2022 [facility] DATE CREATED AUTHOR AUTHOR'S ORGANIZ ATION 08/10/2024 [facility] DATE CREATED AUTHOR AUTHOR'S ORGANIZ ATION 11/22/2024 [facility] DATE CREATED AUTHOR AUTHOR'S ORGANIZ ATION 12/31/2024 [facility] DATE CREATED AUTHOR AUTHOR'S ORGANIZ ATION 01/11/2025 [facility] DATE CREATED AUTHOR AUTHOR'S ORGANIZ ATION 01/23/2025 [facility] DATE CREATED AUTHOR AUTHOR'S ORGANIZ ATION 02/20/2025 [facility] Reason for Visit (unrecogniz ed section and content) Reason Comments Back Pain pt states he has chr onic low back pain, states the pain has gotten worse in the past 2 days with some increased activity. Pt states he has an appointment with his ortho , in [place] on 02/21 Reason Comments Sleep Apnea Trouble falling and/or staying asleep New Patient Medication Follow-up Reason Onset Date Comments Sleep Lab 01/26/2025 BiPAP Ordered Prescriptions (unrec ognized section and content) [...] team informatio n (unrecognized section and content) Color Maker Formulator Relationship Specialty Start Date End Date Mary Kline MD PCP - General Family Medicine 01/11/18 Color Maker Formulator Relationship Specialty Start Date End Date Mary Kline MD PCP - General Family Medicine 04/25/20 Color Maker Formulator Relationship Specialty Start Date End Date Mary Kline MD PCP - General Family Medicine 04/25/20 Color Maker Formulator Relationship Specialty Start Date End Date Mary Kline MD PCP - General Family Medicine 04/25/20 Color Maker Formulator Relationship Specialty Start Date End Date Mary Kline MD PCP - General [facility] 04/25/20 Color Maker Formulator Relationship Specialty Start Date End Date Mary Kline MD PCP - [facility] 04/25/20 Source Comments (unrecognize d section and content) In the event this informatio n is protected by the Federal Confidentiality of Alcohol and Drug Abuse Patient Records regulations: The Federal rules restrict any use of the information to criminally investigate or prosecute any alcohol or drug abuse patient.[facility] FOR RECORDS PERTAINING TO PATIENTS WHO [...] BE BASED ON THE PRIMARY CLINICAL RECORDS. [employer] [facility]. provides no warranty or guarantee of the accuracy or completeness of information in this document.
[2025-02-27 12:25] LABS: Free T3 3.68 pg/mL (2.18-3.98); Thyroid Stimulating Hormone 2.105 uIU/mL (0.358-3.740)
== END 2025-02-27 11:32 | disposition home or self-care (01) ==
LOC: LAB 11:32
PROVIDERS: PCP Family Medicine; Visit Provider Family Medicine
DX: E03.9 Hypothyroidism, unspecified (principal)
CPT/HCPCS: 36415; 84436; 84443; 84481